=== PATIENT | female | born 1955 | race African-American/Black ===

== ENCOUNTER 2016-05-01 14:21 | Inpatient (IN) | payer MEDICARE ==
[~2016-05-01] VITALS: Ht 165.1 cm; Wt 124.0 kg
[~2016-05-01 14:21] MED LIST: AMOX500T PO; ASPI325T PO; BACL10TA PO; CLON.2 PO; COZA100T PO; CRANCAP11 PO; D 10CAP PO; DILA4TAB2 PO; FURO40TA PO; GABA300C5 PO; GABA600T PO; NIFE1TAB86 PO; NIFE20 PO; PANT20 PO; PLAQ200T PO; POTA-163 PO; TERI14TA PO; VITA100T PO; VITATAB11 PO
[2016-05-01 14:25] VITALS: BP 185/102; PULSE 56; RESP 16; TEMP 97.8; O2SAT 99
--- NOTE | 2016-05-01 14:30 | PD ---
HPI Chief Complaint: Complaint Time Seen by Provider: 14:27 Travel History International Travel<30 days: No Contact w/Intl Traveler<30days: No Traveled to known affect area: No History of Present Illness HPI 60-year-old female came to the emergency room sent from her neurologist office for possible UTI/sepsis. Patient has multiple sclerosis and sees Dr. Suggs. She has an indwelling suprapubic catheter as well as Vas-Cath for immunoglobulin. For past 2 days she has been running 101.5 fever with chills and sweats. She was at his office when he decided to call EMS and transfer her to the ER. Patient has been afebrile in the ER. Vital signs are stable. Patient is not ambulatory, wheelchair-bound. PFS Past Medical History Narrative Medical List for past medical history is reviewed from the nursing note. Arthritis: Yes (RA) Asthma: No Autoimmune Disease: Yes (LUPUS, MS, RA AND SPINAL STENOSIS) Blood Disorders: No Bipolar Disorder: Yes Anxiety: No Depression: Yes Heart Rhythm Problems: Yes Cancer: No Cardiac Catheterization: No Cardiovascular Problems: Yes (HTN) High Cholesterol: No Chemotherapy: No Chest Pain: Yes Congestive Heart Failure: No COPD: No Cerebrovascular Accident: No Diabetes: No Diminished Hearing: No Endocrine: No Fibromyalgia: Yes Gastrointestinal Disorders: Yes (BOWEL EMPTYING PROBLEMS) GERD: Yes Genitourinary: Yes (SUPRAPUBIC CATHER BC OF DIFFICULTY WITH EMPTYING BLADDER) Headaches: Yes Hepatitis: No Hiatal Hernia: No Hypertension: Yes Immune Disorder: Yes (LUPUS, MS, RA AND SPINAL STENOSIS) Implanted Vascular Access Dvce: Yes Kidney Stones: No Musculoskeletal: Yes (MS) Neurologic: Yes (MS) Psychiatric: Yes Reproductive: No Respiratory: No Immunizations Current: Yes Migraines: No Radiation Therapy: No Renal Failure: No Seizures: No Sickle Cell Disease: No Sleep Apnea: No Thyroid Disease: No Ulcer: No PNEUMOCCOCAL Vaccine (Year): 2 Menopausal: Yes : 3 Para: 2 Miscarriage: 1 Ovarian Cysts: Yes Tubal Ligation: Yes Past Surgical History Abdominal Surgery: Yes AICD: No Appendectomy: No Arteriovenous Shunt: No Body Medical Devices: METAL PLATES RIGHT ANKLE, METAL IN NECK Cardiac Surgery: No Cholecystectomy: Yes Coronary Artery Bypass Graft: No Ear Surgery: No Endocrine Surgery: No Eye Surgery: No Genitourinary Surgery: Yes (suprapubic catheter) Gynecologic Surgery: Yes (LEFT OVARY hysterectomy) Hysterectomy: Yes (partial) Insulin Pump: No Joint Replacement: No Neurologic Surgery: Yes ( C 2-3 AND 5-6 FUSION 2004) Oral Surgery: No Pacemaker: No Thoracic Surgery: No Other Surgery: Yes Social History Alcohol Use: No Tobacco Use: No Substance Use: No Allergies-Medications (Allergen,Severity, Reaction): Coded Allergies: Adhesives (Verified Allergy, Severe, Rash, 05/01/16) Codeine (Verified Allergy, Severe, SWELLING AND DIFFICULTY BREATHING, ) Dynacirc (Verified Allergy, Severe, ELEVATED HEART RATE, 05/01/16) Lortab (Verified Allergy, Severe, RASH AND SWELLING, 05/01/16) Percocet (Verified Allergy, Severe, ITCHING, 05/01/16) Solu-Medrol (Verified Allergy, Severe, Shortness of Breath, 05/01/16) *MDRO Multi-Drug Resistant Organism (Verified Adverse Reaction, Unknown, 05/01/16) 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 Reported Meds & Prescriptions Reported Meds & Active Scripts Active Reported Toviaz ER (Fesoterodine Fumarate) Unknown Strength Lou Unknown Dose PO DAILY Aubagio (Teriflunomide) 14 Mg Tab 14 Mg PO DAILY Furosemide 40 Mg Tab 40 Mg PO DAILY Nifedipine 20 Mg Cap 30 Mg PO HS Protonix (Pantoprazole Sodium) 20 Mg Tab 20 Mg PO DAILY Procardia XL (Nifedipine) 60 Mg Tab 60 Mg PO DAILY Plaquenil (Hydroxychloroquine Sulfate) 200 Mg Tab 200 Mg PO BID Take with food Potassium Chloride ER (Potassium Chloride) 20 Meq Tab 20 Meq PO DAILY Gabapentin 600 Mg Tab 600 Mg PO HS Gabapentin 300 Mg Cap 300 Mg PO BID Dilaudid (Hydromorphone HCl) 4 Mg Tab 4 Mg PO Q8H PRN Cozaar (Losartan Potassium) 100 Mg Tab 100 Mg PO HS Catapres (Clonidine) 0.2 Mg Tab 0.2 Mg PO TID Aspirin 325 Mg Tab 325 Mg PO DAILY Vitamin B-12 (Cyanocobalamin) 100 Mcg Tab 100 Mcg PO DAILY D 61280 (Cholecalciferol) 10,000 Unit Cap 1 Cap PO DAILY Baclofen 10 Mg Tab 10 Mg PO BID Vitamin B Complex (B-Complex Vitamins) 1 Tab 1 Tab PO DAILY Narrative Medication List of her home medications reviewed from the nursing note. Review of Systems Except as stated in HPI: all other systems reviewed are Neg Physical Exam Narrative GENERAL: Awake, alert, obese, no obvious distress SKIN: Warm and dry. Left sided chest Vas-Cath and suprapubic catheter HEAD: Atraumatic. Normocephalic. EYES: Pupils equal and round. No scleral icterus. No injection or drainage. ENT: No nasal bleeding or discharge. Mucous membranes pink and moist. NECK: Trachea midline. No JVD. CARDIOVASCULAR: Regular rate and rhythm. No murmur appreciated. RESPIRATORY: No accessory muscle use. Clear to auscultation. Breath sounds equal bilaterally. GASTROINTESTINAL: Abdomen soft, non-tender, nondistended. Hepatic and splenic margins not palpable. MUSCULOSKELETAL: No obvious deformities. No clubbing. No cyanosis. No edema. NEUROLOGICAL: Awake and alert. No obvious cranial nerve deficits. Motor grossly within normal limits. Normal speech. PSYCHIATRIC: Appropriate mood and affect; insight and judgment normal. Data Data Last Documented VS Vital Signs Date Time Temp Pulse Resp B/P Pulse Ox O2 Delivery O2 Flow Rate FiO2 05/01/16 15:04 96 Room Air 05/01/16 15:04 16 05/01/16 14:25 97.8 56 185/102 Orders Complete Blood Count With Diff (05/01/16 14:37) Comprehensive Metabolic Panel (05/01/16 14:37) Lactic Acid Sepsis Protocol (05/01/16 14:37) Urinalysis - C+S If Indicated (05/01/16 14:37) Blood Culture (05/01/16 14:37) Chest, Single Ap (05/01/16 14:37) Blood Glucose (05/01/16 14:37) Ecg Monitoring (05/01/16 14:37) Iv Access Insert/Monitor (05/01/16 14:37) Oximetry (05/01/16 14:37) Oxygen Administration (05/01/16 14:37) Consult Vascular Access Team (05/01/16 ) Vascular Poc Ultrasound (05/01/16 ) Urine Culture (05/01/16 16:40) Piperacil-Tazo 4.5 Gm Premix (Zosyn 4.5 (05/01/16 17:45) Admit Order (Ed Use Only) (05/01/16 18:00) Labs Laboratory Tests Test 05/01/16 05/01/16 16:15 16:40 Sodium Level 142 MEQ/L Potassium Level 3.8 MEQ/L Chloride Level 104 MEQ/L Carbon Dioxide Level 30.3 MEQ/L Anion Gap 8 MEQ/L Blood Urea Nitrogen 15 MG/DL Creatinine 1.04 MG/DL Estimat Glomerular Filtration 66 ML/MIN Rate Random Glucose 97 MG/DL Lactic Acid Level 1.6 mmol/L Calcium Level 9.2 MG/DL Total Bilirubin 0.4 MG/DL Aspartate Amino Transf 13 U/L (AST/SGOT) Alanine Aminotransferase 16 U/L (ALT/SGPT) Alkaline Phosphatase 82 U/L Total Protein 7.9 GM/DL Albumin 3.6 GM/DL White Blood Count 6.0 TH/MM3 Red Blood Count 4.38 MIL/MM3 Hemoglobin 12.2 GM/DL Hematocrit 36.6 % Mean Corpuscular Volume 83.5 FL Mean Corpuscular Hemoglobin 27.8 PG Mean Corpuscular Hemoglobin 33.3 % Concent Red Cell Distribution Width 14.3 % Platelet Count 290 TH/MM3 Mean Platelet Volume 8.8 FL Neutrophils (%) (Auto) 52.2 % Lymphocytes (%) (Auto) 28.3 % Monocytes (%) (Auto) 10.5 % Eosinophils (%) (Auto) 7.8 % Basophils (%) (Auto) 1.2 % Neutrophils # (Auto) 3.1 TH/MM3 Lymphocytes # (Auto) 1.7 TH/MM3 Monocytes # (Auto) 0.6 TH/MM3 Eosinophils # (Auto) 0.5 TH/MM3 Basophils # (Auto) 0.1 TH/MM3 CBC Comment DIFF FINAL Differential Comment Urine Color LIGHT-YELLOW Urine Turbidity CLEAR Urine pH 6.0 Urine Specific [place] 1.005 Urine Protein NEG mg/dL Urine Glucose (UA) NEG mg/dL Urine Ketones NEG mg/dL Urine Occult Blood NEG Urine Nitrite NEG Urine Bilirubin NEG Urine Urobilinogen LESS THAN 2.0 MG/DL Urine Leukocyte Esterase LARGE Urine RBC 1 /hpf Urine WBC 40 /hpf Urine Bacteria RARE /hpf Microscopic Urinalysis Comment CATH-CULTURE IND MDM Medical Decision Making Medical Screen Exam Complete: Yes Emergency Medical Condition: Yes Medical Record Reviewed: Yes Differential Diagnosis UTI, pneumonia, sepsis, electrolyte abnormalities Narrative Course 2:52 PM awaiting for the blood test results to come back. 6:03 PM test results finally came back. Patient does have a UTI. Rest of the blood test results are within normal limits. Looking back at her past urine culture from December patient grew pseudomonas aeruginosa that was resistant to most of the oral antibiotics. I've given her IV Zosyn which the bacteria was sensitive to. Patient will be admitted for the UTI. Procedures EKG Prior to Arrival: No Diagnosis Primary Impression: UTI (urinary tract infection) Qualified Code: N39.0 - Urinary tract infection without hematuria, site unspecified Additional Impressions: Fever Qualified Code: R50.9 - Fever, unspecified fever cause Multiple sclerosis Chronic indwelling Mendoza catheter Grant Wharton MD May 01, 2016 14:30 Grant Wharton MD May 01, 2016 14:30
[2016-05-01 15:04] VITALS: RESP 16; O2SAT 96
--- NOTE | 2016-05-01 15:46 | RADRPT ---
EXAM DATE/TIME: 05/01/2016 15:08 [facility] COMPARISON: CHEST SINGLE AP, January 01, 2016, 18:55. INDICATIONS : Cough MEDICAL HISTORY : Cerebrovascular disease. Multiple sclerosis. Hypertension SURGICAL HISTORY : Permacath ENCOUNTER: Initial ACUITY: 1 day PAIN SCORE: 0/10 LOCATION: Bilateral chest FINDINGS: A single view of the chest demonstrates the lungs to be symmetrically aerated without evidence of mas s, infiltrate or effusion. The cardiomediastinal contours are unremarkable. Osseous structures are intact. Left-sided large bore permacath dialysis catheter remains in place. CONCLUSION: No acute disease. No significant change has occurred. Ruslan Sánchez MD on May 01, 2016 at 15:44 Board Certified Radiologist. This report was verified electronically.
[2016-05-01 17:10] LABS: AUTOMATED NEUTROPHIL # 3.1 TH/MM3 (1.8-7.7); BASOPHIL # 0.1 TH/MM3 (0-0.2); BASOPHIL % 1.2 % (0.0-2.0); EOSINOPHIL # 0.5 TH/MM3 (0-0.4); EOSINOPHIL % 7.8 % (0.0-4.0); HEMATOCRIT 36.6 % (35.0-46.0); HEMO FLAGS DIFF FINAL; LYMPH % 28.3 % (9.0-44.0); LYMPHOCYTE # 1.7 TH/MM3 (1.0-4.8); MEAN CELL VOLUME 83.5 FL (80.0-100.0); MEAN CORPUSCULAR HEMOGLOBIN 27.8 PG (27.0-34.0); MEAN CORPUSCULAR HGB CONC 33.3 % (32.0-36.0); MONO % 10.5 % (0.0-8.0); NEUT % 52.2 % (16.0-70.0); PLATELET COUNT 290 TH/MM3 (150-450); RED BLOOD COUNT 4.38 MIL/MM3 (4.00-5.30); RED CELL DISTRIBUTION WIDTH 14.3 % (11.6-17.2)
[2016-05-01 17:10] LABS: BACTERIA, URINE RARE /hpf; BLOOD, URINE NEG (NEG); GLUCOSE,URINE NEG (NEG); KETONE, URINE NEG (NEG); NITRITE,URINE NEG (NEG); URINE COLOR LIGHT-YELLOW (YELLW/STRAW)
[2016-05-01 17:11] LABS: COMMENT (UR) CATH-CULTURE IND; CULTURE IF INDICATED CATH CULTURE IND
[2016-05-01 17:25] LABS: ALKALINE PHOSPHATASE 82 U/L (45-117); ALT (GPT) 16 U/L (10-53); ANION GAP 8 MEQ/L (5-15); AST (GOT) 13 U/L (15-37); BICARBONATE 30.3 MEQ/L (21.0-32.0); BLOOD UREA NITROGEN 15 MG/DL (7-18); CHLORIDE 104 MEQ/L (98-107); GLOMERULAR FILTRATION RATE 66 ML/MIN (>89); POTASSIUM 3.8 MEQ/L (3.5-5.1); SODIUM (NA) 142 MEQ/L (136-145); TOTAL BILIRUBIN ADULT 0.4 MG/DL (0.2-1.0)
[2016-05-01] MEDS ORDERED: PIPERACIL-TAZO 4.5 GM PREMIX 100 ML IV ONE (17:45)
[2016-05-01] MEDS ORDERED: TERI14TA PO (18:33)
[2016-05-01] MEDS ORDERED: TOVI4TAB PO (18:33)
--- NOTE | 2016-05-01 19:55 | HHI.HP ---
HPI Service [facility] Hospitalists Primary Care Physician John Bloom Jr, MD Admission Diagnosis UTI, indwelling Mendoza, MS Chief Complaint: Fever, left flank pain, foul smelling urine Travel History International Travel<30 Days: No Contact w/Intl Traveler <30 Da: No Traveled to Known Affected Are: No Sepsis Criteria Sepsis Criteria (SIRS+source): Infect source susp/known History of Present Illness Pleasant 60-year-old Afro-Swiss female with underlying multiple sclerosis since 2012 and indwelling suprapubic catheter for approximately a year and a half presents via E Vac sent from her neurologist's office secondary to reported fever over the last 2 days. Patient reports MAXIMUM TEMPERATURE was yesterday afternoon at 101.4. Had no nausea or vomiting. She's had a cough with slight phlegm production which started today. Denies hemoptysis or hematemesis. She's had recurrent urinary tract infections in the past with some multidrug-resistant organisms. She was actually hospitalized a few months ago with pseudomonal UTI with multidrug resistance. On evaluation in the ER she does not appear toxic and is afebrile. CBC is essentially unremarkable. It is noted the patient is on immune O suppressant medication for her MS and also gets plasmapheresis periodically with last plasmapheresis being done March 15 of this year. She does report some purulent discharge and foul smell in her urine the last couple of days. Urine collected in the ER has findings which could be consistent with infectious process. Review of Systems Constitutional: COMPLAINS OF: Diaphoretic episodes, Fatigue, Fever, Chills, Night Sweats Eyes: DENIES: Blurred vision, Diplopia, Eye inflammation, Eye pain, Vision loss , Photosensitivity, Double Vision Ears, nose, mouth, throat: DENIES: Tinnitus, Hearing loss, Vertigo, Nasal discharge, Oral lesions, Throat pain, Hoarseness, Ear Pain, Running Nose, Epistaxis, Sinus Pain, Toothache, Odynophagia Respiratory: COMPLAINS OF: Cough, Sputum production, DENIES: Apneas, Snoring, Wheezing, Hemoptysis, Shortness of breath Cardiovascular: DENIES: Chest pain, Palpitations, Syncope, Dyspnea on Exertion , PND, Lower Extremity Edema, Orthopnea, Claudication Gastrointestinal: DENIES: Abdominal pain, Black stools, Bloody stools, BRB per rectum, Constipation, Diarrhea, GERD, Nausea, Reflux, Vomiting, Difficulty Swallowing, Anorexia, See HPI Musculoskeletal: COMPLAINS OF: Joint pain Neurologic: COMPLAINS OF: Localized weakness Psychiatric: COMPLAINS OF: Anxiety Other Wheelchair bound due to inability to ambulate secondary to EMS, left flank pain. Past Family Social History Past Medical History Multiple sclerosis diagnosed in late 2012 requiring plasmapheresis periodically. Most recent plasmapheresis was March 2016. Fibromyalgia Bipolar disorder History of obesity Hypertension Lupus Fibromyalgia Gastroparesis Recurrent UTIs Past Surgical History 2004 the patient had C3 through C6 anterior cervical discectomy and arthrodesis for severe cervical stenosis and myelopathy 2008 the patient had again the same diagnosis but had C6-C7 anterior cervical discectomy and arthrodesis 2010 the patient had open reduction, internal fixation of a right ankle fracture Right distal fibula fracture Torn lateral meniscus last year and underwent arthroscopic surgery Laparoscopic cholecystectomy Hysterectomy Suprapubic catheter placement approximately 1-1/2 years ago Reported Medications Furosemide 40 Mg Tab 40 Mg PO DAILY Nifedipine 20 Mg Cap 30 Mg PO HS Protonix (Pantoprazole Sodium) 20 Mg Tab 20 Mg PO DAILY Procardia XL (Nifedipine) 60 Mg Tab 60 Mg PO DAILY Plaquenil (Hydroxychloroquine Sulfate) 200 Mg Tab 200 Mg PO BID Take with food Potassium Chloride ER (Potassium Chloride) 20 Meq Tab 20 Meq PO DAILY Gabapentin 600 Mg Tab 600 Mg PO HS Gabapentin 300 Mg Cap 300 Mg PO BID Dilaudid (Hydromorphone HCl) 4 Mg Tab 4 Mg PO Q8H PRN Cozaar (Losartan Potassium) 100 Mg Tab 100 Mg PO HS Catapres (Clonidine) 0.2 Mg Tab 0.2 Mg PO TID Aspirin 325 Mg Tab 325 Mg PO DAILY Vitamin B-12 (Cyanocobalamin) 100 Mcg Tab 100 Mcg PO DAILY D 02964 (Cholecalciferol) 10,000 Unit Cap 1 Cap PO DAILY Baclofen 10 Mg Tab 10 Mg PO BID Vitamin B Complex (B-Complex Vitamins) 1 Tab 1 Tab PO DAILY Cranberr1 Unknown Strength Cap Unknown Dose PO [id number] Mg 14 Mg Tab 14 Mg PO DAILY Allergies: Coded Allergies: Adhesives (Verified Allergy, Severe, Rash, 05/01/16) Codeine (Verified Allergy, Severe, SWELLING AND DIFFICULTY BREATHING, ) Dynacirc (Verified Allergy, Severe, ELEVATED HEART RATE, 05/01/16) Lortab (Verified Allergy, Severe, RASH AND SWELLING, 05/01/16) Percocet (Verified Allergy, Severe, ITCHING, 05/01/16) Solu-Medrol (Verified Allergy, Severe, Shortness of Breath, 05/01/16) *MDRO Multi-Drug Resistant Organism (Verified Adverse Reaction, Unknown, 05/01/16) 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 They have been together for over 30 years. She has 2 adult children one son who lives in [place] and a daughter who lives in [place] Never smoked tobacco. Does not drink alcohol. Denies illicit drugs. 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 Physical Exam Vital Signs Vital Signs Date Time Temp Pulse Resp B/P Pulse Ox O2 Delivery O2 Flow Rate FiO2 05/01/16 15:04 96 Room Air 05/01/16 15:04 16 96 Room Air 05/01/16 14:25 97.8 56 16 185/102 99 Physical Exam GENERAL: This is a well-nourished, well-developed patient, in no apparent distress. Alert and oriented. Well informed about her current illness and diagnoses. SKIN: Slight purpuric rash on forearms. Cool and dry. Left upper chest with port in place. HEAD: Atraumatic. Normocephalic. No temporal or scalp tenderness. EYES: Pupils equal round and reactive. Extraocular motions intact. No scleral icterus. No injection or drainage. ENT: Nose without bleeding, purulent drainage or septal hematoma. Airway patent. NECK: Trachea midline. No JVD or lymphadenopathy. Supple, nontender, no meningeal signs. CARDIOVASCULAR: Regular rate and rhythm without murmurs, gallops, or rubs. RESPIRATORY: Clear to auscultation. Breath sounds equal bilaterally. No wheezes , rales, or rhonchi. GASTROINTESTINAL: Abdomen soft, non-tender, nondistended. No hepato-splenomegaly , or palpable masses. No guarding. Bowel sounds normal. Suprapubic catheter in place. MUSCULOSKELETAL: Extremities without clubbing, cyanosis, or edema. No calf tenderness. NEUROLOGICAL: Awake and alert. Cranial nerves II through XII intact. Decreased strength in lower extremities causing her to be wheelchair/bed bound. Normal speech. Laboratory Laboratory Tests Test 05/01/16 05/01/16 16:15 16:40 White Blood Count 6.0 Red Blood Count 4.38 Hemoglobin 12.2 Hematocrit 36.6 Mean Corpuscular Volume 83.5 Mean Corpuscular Hemoglobin 27.8 Mean Corpuscular Hemoglobin 33.3 Concent Red Cell Distribution Width 14.3 Platelet Count 290 Mean Platelet Volume 8.8 Neutrophils (%) (Auto) 52.2 Lymphocytes (%) (Auto) 28.3 Monocytes (%) (Auto) 10.5 Eosinophils (%) (Auto) 7.8 Basophils (%) (Auto) 1.2 Neutrophils # (Auto) 3.1 Lymphocytes # (Auto) 1.7 Monocytes # (Auto) 0.6 Eosinophils # (Auto) 0.5 Basophils # (Auto) 0.1 CBC Comment DIFF FINAL Differential Comment Sodium Level 142 Potassium Level 3.8 Chloride Level 104 Carbon Dioxide Level 30.3 Anion Gap 8 Blood Urea Nitrogen 15 Creatinine 1.04 Estimat Glomerular Filtration 66 Rate Random Glucose 97 Lactic Acid Level 1.6 Calcium Level 9.2 Total Bilirubin 0.4 Aspartate Amino Transf 13 (AST/SGOT) Alanine Aminotransferase 16 (ALT/SGPT) Alkaline Phosphatase 82 Total Protein 7.9 Albumin 3.6 Urine Color LIGHT-YELLOW Urine Turbidity CLEAR Urine pH 6.0 Urine Specific [place] 1.005 Urine Protein NEG Urine Glucose (UA) NEG Urine Ketones NEG Urine Occult Blood NEG Urine Nitrite NEG Urine Bilirubin NEG Urine Urobilinogen LESS THAN 2.0 Urine Leukocyte Esterase LARGE Urine RBC 1 Urine WBC 40 Urine Bacteria RARE Microscopic Urinalysis Comment CATH-CULTURE IND Date/Time Procedure Status Source Growth 05/01/16 16:40 Urine Culture Received Urine Catheterized Urine Pending 05/01/16 16:20 Aerobic Blood Culture Received Blood Peripheral Pending 05/01/16 16:20 Anaerobic Blood Culture Received Blood Peripheral Pending Result Diagram: 05/01/16 1615 05/01/16 1615 Imaging Last 72 hours Impressions Chest X-Ray 05/01/16 1437 Signed Impressions: Service Date/Time: Sunday, May 01, 2016 15:08 - CONCLUSION: No acute disease. No significant change has occurred. Ruslan Sánchez MD Assessment and Plan Problem List: (1) UTI (urinary tract infection) Status: Acute Plan: Seems to be a recurrent issue. Patient is had multidrug resistant organism before. She is somewhat immobile, has indwelling device, is on immunosuppressant therapy. He does not appear toxic. We'll continue current antibiotics and await these gram staining. If gram staining is similar to previous admit and patient is responding well to antibiotics with no more fever, could consider early discharge to rehabilitation for IV antibiotic therapy. (2) Multiple sclerosis Status: Chronic Plan: Continue outpatient therapy. (3) HTN (hypertension), benign Status: Chronic Plan: Continue medications and adjust as needed. Her blood pressure has been difficult to control at times in the past. (4) Lupus (systemic lupus erythematosus) Status: Chronic Plan: Continue outpatient therapy. (5) GERD (gastroesophageal reflux disease) Status: Chronic Plan: Continue outpatient therapy. Code Status Full Discussed Condition With Patient Problem Qualifiers (1) UTI (urinary tract infection): Cr Perdue PhD May 01, 2016 19:55
[2016-05-01] MEDS ORDERED: HYDROmorphone HCL 4 MG TAB PO PRN (20:00)
[2016-05-01 20:43] VITALS: BP 163/78
[2016-05-01] MEDS: GABAPENTIN 300 MG CAP PO SCH ×2 (21:00→22:30)
[2016-05-01] MEDS: BACLOFEN 10 MG TAB PO SCH (21:00)
[2016-05-01] MEDS: LOSARTAN 50 MG TAB PO SCH (22:29)
[2016-05-01] MEDS: HYDROXYCHLOROQUINE SULFATE 200 MG TAB PO SCH (22:30)
[2016-05-02] MEDS: NIFEdipine 10 MG CAP PO SCH ×2 (00:02→22:34)
[2016-05-02] MEDS: PIPERACIL-TAZO 3.375 GM PREMIX 50 ML IV SCH ×4 (00:03→18:04)
[2016-05-02 02:19] VITALS: BP 140/77; PULSE 84; RESP 18; TEMP 97.8; O2SAT 96
[2016-05-02 05:28] VITALS: BP 136/69; PULSE 92; RESP 18; TEMP 98; O2SAT 98
[2016-05-02 08:44] VITALS: BP 138/70; PULSE 84; RESP 18; TEMP 97.6; O2SAT 95
[2016-05-02] MEDS: NIFEdipine 60 MG SUSTAINED RELEASE TAB PO SCH (09:00)
[2016-05-02] MEDS: TERIFLUNOMIDE 14 MG PO SCH (09:00)
[2016-05-02] MEDS: POTASSIUM CHLORIDE 20 MEQ CONTROLLED RELEASE TAB PO SCH (09:28)
[2016-05-02] MEDS: FUROSEMIDE 40 MG TAB PO SCH (09:28)
[2016-05-02] MEDS: BACLOFEN 10 MG TAB PO SCH ×2 (09:28→22:33)
[2016-05-02] MEDS: GABAPENTIN 300 MG CAP PO SCH ×3 (09:28→22:33)
[2016-05-02] MEDS: ASPIRIN 325 MG TAB PO SCH (09:28)
[2016-05-02] MEDS: PANTOPRAZOLE SOD 20 MG DELAYED RELEASE TAB PO SCH (09:29)
[2016-05-02] MEDS: HYDROXYCHLOROQUINE SULFATE 200 MG TAB PO SCH ×2 (09:29→22:34)
[2016-05-02] MEDS: cloNIDine HCL 0.2 MG TAB PO SCH ×3 (09:29→18:04)
[2016-05-02 10:48] LABS: ALKALINE PHOSPHATASE 72 U/L (45-117); ALT (GPT) 18 U/L (10-53); ANION GAP 7 MEQ/L (5-15); AST (GOT) 21 U/L (15-37); BICARBONATE 29.1 MEQ/L (21.0-32.0); BLOOD UREA NITROGEN 18 MG/DL (7-18); CHLORIDE 105 MEQ/L (98-107); GLOMERULAR FILTRATION RATE 60 ML/MIN (>89); SODIUM (NA) 141 MEQ/L (136-145); TOTAL BILIRUBIN ADULT 0.6 MG/DL (0.2-1.0)
[2016-05-02 10:50] LABS: POTASSIUM 4.4 MEQ/L (3.5-5.1)
[2016-05-02 12:02] VITALS: BP 126/68; PULSE 76; RESP 20; TEMP 98.6; O2SAT 97
--- NOTE | 2016-05-02 15:21 | HHI.PR ---
Subjective Remarks feeling stronger after the antibiotics Objective Vitals nad heart reg lung cta abd s/nt. suprapubic cath..no purelence at insertion site. urine yellow in bag ext no edema Vital Signs Date Time Temp Pulse Resp B/P Pulse Ox O2 Delivery O2 Flow Rate FiO2 05/02/16 12:02 98.6 76 20 126/68 97 05/02/16 08:44 97.6 84 18 138/70 95 05/02/16 05:28 98.0 92 18 136/69 98 05/02/16 05:22 05/02/16 02:19 97.8 84 18 140/77 96 05/01/16 20:43 74 18 163/78 97 05/01/16 05/01/16 05/02/16 14:59 22:59 06:59 Output Total 500 ml Balance -500 ml Output Urine Total 500 ml Result Diagram: 05/01/16 1615 05/02/16 1016 Imaging Last 72 hours Impressions Chest X-Ray 05/01/16 1437 Signed Impressions: Service Date/Time: Sunday, May 01, 2016 15:08 - CONCLUSION: No acute disease. No significant change has occurred. Ruslan Sánchez MD A/P Problem List: (1) UTI (urinary tract infection) Status: Acute Plan: Pt has severe M.S. and has had suprapubic catheter..typically exchanged monthly by her urologist. she has long hx of complicated uti's and mdr infections. Pt says she had fever x 3 days with temp up to 101.4 and was feeling weak as she typically gets when infection flares her MS. Also she noted cloudy urine and foul odor. so far urine growing pseudomonas again will ask IR to exchange her spc. admit for monitoring PT eval. so far pt says the abx have improved her aching/weakness. dvt prophylaxis (2) Multiple sclerosis Status: Chronic Plan: Continue outpatient therapy. (3) HTN (hypertension), benign Status: Chronic Plan: cont current rx (4) Lupus (systemic lupus erythematosus) Status: Chronic Plan: Continue outpatient therapy. (5) GERD (gastroesophageal reflux disease) Status: Chronic Plan: Continue outpatient therapy. Problem Qualifiers (1) UTI (urinary tract infection): Alex Morales MD May 02, 2016 15:21
[2016-05-02 16:33] VITALS: BP 110/55; PULSE 71; RESP 18; TEMP 97.7; O2SAT 99
[2016-05-02] MEDS: LOSARTAN 50 MG TAB PO SCH (22:33)
[2016-05-03] VITALS (8 sets, daily range): BP systolic 119–155; BP diastolic 67–82; PULSE 54–64; RESP 16–20; TEMP 96.3–97.7; O2SAT 95–100
[2016-05-03] MEDS: PIPERACIL-TAZO 3.375 GM PREMIX 50 ML IV SCH ×5 (01:27→23:05)
[2016-05-03] MEDS: ONDANSETRON HCL 4 MG/2 ML VIAL SLOW IVP PRN ×2 (07:17→16:48)
[2016-05-03] MEDS: NIFEdipine 60 MG SUSTAINED RELEASE TAB PO SCH (09:00)
[2016-05-03] MEDS: ASPIRIN 325 MG TAB PO SCH (09:31)
[2016-05-03] MEDS: PANTOPRAZOLE SOD 20 MG DELAYED RELEASE TAB PO SCH (09:46)
[2016-05-03] MEDS: GABAPENTIN 300 MG CAP PO SCH ×3 (09:47→22:28)
[2016-05-03] MEDS: HYDROXYCHLOROQUINE SULFATE 200 MG TAB PO SCH ×2 (09:47→22:49)
[2016-05-03] MEDS: POTASSIUM CHLORIDE 20 MEQ CONTROLLED RELEASE TAB PO SCH (09:47)
[2016-05-03] MEDS: BACLOFEN 10 MG TAB PO SCH ×2 (09:48→22:28)
[2016-05-03] MEDS: FUROSEMIDE 40 MG TAB PO SCH (09:48)
[2016-05-03] MEDS: cloNIDine HCL 0.2 MG TAB PO SCH ×3 (09:50→18:51)
[2016-05-03] MEDS ORDERED: fentaNYL CITRATE 250 MCG/5 ML AMP ONE (11:03)
[2016-05-03] MEDS ORDERED: MIDAZOLAM HCL 5 MG/5 ML VIAL ONE (11:03)
--- NOTE | 2016-05-03 11:43 | PD.RAD ---
Post Procedure Progress Note Pre Procedure Diagnosis: (1) Fever (2) Suprapubic catheter dysfunction Post Procedure Diagnosis: (1) Fever (2) Suprapubic catheter dysfunction Procedure Date: May 03, 2016 Supervising Radiologist: Ifeanyi Whalen Proceduralist/Assist: Leonie Grey, RT(R), RT Vladimir(R)() Anesthesia: Conscious Sedation Plan of Activity Patient to Unit: ROPU Patient Condition: Good See PACS Report for procedural detail/treatment Drainage Procedure Procedure 1 Imaging Guidance: Fluoroscopy Procedure Type: Suprapubic Tube Procedure: Exchange Ecuadorean: 16 Fluid Description: Yellow Findings: Tube exchanged over a wire Ifeanyi Whalen MD May 03, 2016 11:43
[2016-05-03] MEDS ORDERED: IOHEXOL 350 MG/ML 50 ML BTL (for RAD DIAG) ONE (11:47)
--- NOTE | 2016-05-03 12:55 | RADRPT ---
EXAM DATE/TIME: 05/03/2016 11:09 [facility] COMPARISON: No previous studies available for comparison. INDICATIONS : Patient with history of recurrent UTI in need of suprapubic catheter exchange. MEDICAL HISTORY : Multiple sclerosis, Plasmapheresis, Fibromyalgia, HTN, Lupus, Gastroparesis, GERD SURGICAL HISTORY : Discectomy, Cholecystectomy, Suprapubic catheter placement, Dialysis catheter placement ENCOUNTER: Subsequent ACUITY: 2 days PAIN SCORE: 0/10 FLUORO TIME: 0.9 minutes SEDATION TIME: 30 minutes CONTRAST: 10 cc Omnipaque 350 (iohexol) MEDICATION(S): 1.) 2 mg midazolam (Versed) IV 2.) 100 mcg fentanyl (Sublimaze) IV DEVICE(S): 1.) Mendoza catheter 16F PROCEDURE : 1. Suprapubic catheter change. 2. Conscious sedation with continuous EKG and oximetry monitoring. The risks, benefits and alternatives to the procedure were explained and verbal and written consent w as obtained. The site was prepped in sterile fashion. Full sterile technique was used, including cap, mask, steril e gloves and gown and a large sterile sheet. Hand hygiene and 2% chlorhexidine and/or betadine/alcoho l prep was utilized per protocol for cutaneous antisepsis. The skin and subcutaneous tissues were infiltrated with local anes thetic solution. A guidewire was placed through the existing catheter and over this the prescribed catheter was placed in the bladder. Positive contrast was injected to confirm position. Conscious sedation was performed with the prescribed dosages and duration as above. The patient edgard ated the procedure well and there were no complications. EKG and oximetry remained stable throughout the proce dure. The patient was sent to post anesthesia recovery in stable condition. CONCLUSION: Uncomplicated suprapubic catheter exchange. Ifeanyi Whalen MD on May 03, 2016 at 12:54 Board Certified Radiologist. This report was verified electronically.
[2016-05-03] MEDS: TERIFLUNOMIDE 14 MG PO SCH (14:06)
--- NOTE | 2016-05-03 15:28 | HHI.PR ---
Subjective Remarks sleeping after the procedure Objective Vitals lying in bed sleeping and sedated from medications heart reg lung cta abd spc with golden Vital Signs Date Time Temp Pulse Resp B/P Pulse Ox O2 Delivery O2 Flow Rate FiO2 05/03/16 13:00 56 16 134/69 98 05/03/16 12:30 56 16 126/79 98 05/03/16 12:00 54 16 119/76 97 05/03/16 11:46 05/03/16 11:45 97.6 54 16 150/82 96 05/03/16 08:17 97.7 57 18 155/75 100 05/03/16 04:37 97.6 64 20 135/67 98 05/02/16 16:33 97.7 71 18 110/55 99 05/02/16 05/02/16 05/03/16 15:00 23:00 07:00 Intake Total 480 ml Output Total 300 ml Balance 180 ml Intake Oral 480 ml Output Urine Total 300 ml # Bowel Movements 1 Result Diagram: 05/01/16 1615 05/02/16 1016 Imaging Last 72 hours Impressions Chest X-Ray 05/01/16 1437 Signed Impressions: Service Date/Time: Sunday, May 01, 2016 15:08 - CONCLUSION: No acute disease. No significant change has occurred. Ruslan Sánchez MD A/P Problem List: (1) UTI (urinary tract infection) Status: Acute Plan: Pt has severe M.S. and has had suprapubic catheter..typically exchanged monthly by her urologist. she has long hx of complicated uti's and mdr infections. Pt says she had fever x 3 days with temp up to 101.4 and was feeling weak as she typically gets when infection flares her MS. Also she noted cloudy urine and foul odor. so far urine growing pseudomonas again IR exchanged spc 05/03 will await final urine cx PT eval. so far pt says the abx have improved her aching/weakness. dvt prophylaxis (2) Multiple sclerosis Status: Chronic Plan: Continue outpatient therapy. (3) HTN (hypertension), benign Status: Chronic Plan: cont current rx (4) Lupus (systemic lupus erythematosus) Status: Chronic Plan: Continue outpatient therapy. (5) GERD (gastroesophageal reflux disease) Status: Chronic Plan: Continue outpatient therapy. Problem Qualifiers (1) UTI (urinary tract infection): Qualified Code: N39.0 - Urinary tract infection without hematuria, site unspecified Alex Morales MD May 03, 2016 15:28
[2016-05-03] MEDS: LOSARTAN 50 MG TAB PO SCH (22:29)
[2016-05-03] MEDS: NIFEdipine 10 MG CAP PO SCH (22:49)
[2016-05-04] VITALS (10 sets, daily range): BP systolic 101–148; BP diastolic 57–85; PULSE 54–73; RESP 14–18; TEMP 97–97.9; O2SAT 95–98
[2016-05-04] MEDS: ONDANSETRON HCL 4 MG/2 ML VIAL SLOW IVP PRN (04:50)
[2016-05-04] MEDS: PIPERACIL-TAZO 3.375 GM PREMIX 50 ML IV SCH ×3 (06:28→17:54)
[2016-05-04] MEDS: FUROSEMIDE 40 MG TAB PO SCH (09:29)
[2016-05-04] MEDS: ASPIRIN 325 MG TAB PO SCH (09:29)
[2016-05-04] MEDS: BACLOFEN 10 MG TAB PO SCH ×2 (09:29→21:52)
[2016-05-04] MEDS: TERIFLUNOMIDE 14 MG PO SCH (09:29)
[2016-05-04] MEDS: cloNIDine HCL 0.2 MG TAB PO SCH ×3 (09:29→18:02)
[2016-05-04] MEDS: NIFEdipine 60 MG SUSTAINED RELEASE TAB PO SCH (09:29)
[2016-05-04] MEDS: PANTOPRAZOLE SOD 20 MG DELAYED RELEASE TAB PO SCH (09:29)
[2016-05-04] MEDS: POTASSIUM CHLORIDE 20 MEQ CONTROLLED RELEASE TAB PO SCH (09:29)
[2016-05-04] MEDS: GABAPENTIN 300 MG CAP PO SCH ×2 (09:29→21:53)
[2016-05-04] MEDS ORDERED: GABAPENTIN 300 MG CAP PO ONE (09:45)
--- NOTE | 2016-05-04 09:50 | HHI.PR ---
Subjective Remarks c/o nausea and more fire/burning in feet bilaterally..plantar surface. crying. Objective Vitals heart reg lung cta abd s/nt ext no edema spc..urine yellow Vital Signs Date Time Temp Pulse Resp B/P Pulse Ox O2 Delivery O2 Flow Rate FiO2 05/04/16 08:38 97.1 66 18 148/85 95 05/04/16 04:00 97.1 61 16 143/70 96 05/04/16 00:00 97.0 58 14 119/60 98 05/03/16 20:00 97.2 62 16 124/72 95 05/03/16 17:02 96.3 55 18 145/72 97 05/03/16 13:00 56 16 134/69 98 05/03/16 12:30 56 16 126/79 98 05/03/16 12:00 54 16 119/76 97 05/03/16 11:46 05/03/16 11:45 97.6 54 16 150/82 96 05/03/16 05/03/16 05/04/16 15:00 23:00 07:00 Intake Total 360 ml 240 ml Output Total 1100 ml 251 ml Balance -740 ml -11 ml Intake Oral 360 ml 240 ml Output Urine Total 1100 ml 250 ml Stool Total 1 ml Result Diagram: 05/01/16 1615 05/02/16 1016 Imaging Last 72 hours Impressions Chest X-Ray 05/01/16 1437 Signed Impressions: Service Date/Time: Sunday, May 01, 2016 15:08 - CONCLUSION: No acute disease. No significant change has occurred. Ruslan Sánchez MD A/P Problem List: (1) UTI (urinary tract infection) Status: Acute Plan: Pt has severe M.S. and has had suprapubic catheter..typically exchanged monthly by her urologist. she has long hx of complicated uti's and mdr infections. Pt says she had fever x 3 days with temp up to 101.4 and was feeling weak as she typically gets when infection flares her MS. Also she noted cloudy urine and foul odor. so far urine growing pseudomonas again IR exchanged spc 05/03 will await final urine cx PT eval. dvt prophylaxis (2) Multiple sclerosis Status: Chronic Plan: Continue outpatient therapy. she is complaining for more peripheral neuropathy pain in feet..will increase her neurontin (3) HTN (hypertension), benign Status: Chronic Plan: cont current rx (4) Lupus (systemic lupus erythematosus) Status: Chronic Plan: Continue outpatient therapy. (5) GERD (gastroesophageal reflux disease) Status: Chronic Plan: Continue outpatient therapy. Problem Qualifiers (1) UTI (urinary tract infection): Qualified Code: N39.0 - Urinary tract infection without hematuria, site unspecified Alex Morales MD May 04, 2016 09:50
[2016-05-04] MEDS: HYDROXYCHLOROQUINE SULFATE 200 MG TAB PO SCH ×2 (09:53→21:52)
[2016-05-04] MEDS ORDERED: PROMETHAZINE HCL 25 MG TAB PO ONE (10:00)
[2016-05-04] MEDS: NIFEdipine 10 MG CAP PO SCH (21:00)
[2016-05-04] MEDS: LOSARTAN 50 MG TAB PO SCH (21:00)
[2016-05-05] VITALS (7 sets, daily range): BP systolic 105–152; BP diastolic 49–81; PULSE 58–79; RESP 16–20; TEMP 95.6–97.9; O2SAT 94–100
[2016-05-05] MEDS: PIPERACIL-TAZO 3.375 GM PREMIX 50 ML IV SCH ×2 (00:30→05:05)
[2016-05-05] MEDS: POTASSIUM CHLORIDE 20 MEQ CONTROLLED RELEASE TAB PO SCH (09:00)
--- NOTE | 2016-05-05 09:28 | HHI.PR ---
Subjective Remarks neuropathy pains better. pt upset because urine was taken from bag and not line. Objective Vitals heart reg lung cta abd s/nt. spc ext no edema Vital Signs Date Time Temp Pulse Resp B/P Pulse Ox O2 Delivery O2 Flow Rate FiO2 05/05/16 04:00 97.6 66 16 132/62 95 05/05/16 00:00 97.3 63 16 105/65 95 05/04/16 20:00 97.5 67 14 101/57 98 05/04/16 18:04 133/77 05/04/16 16:00 97.9 57 17 148/76 96 05/04/16 14:01 112/60 05/04/16 12:09 97.6 73 16 119/60 98 05/04/16 11:58 54 05/04/16 05/04/16 05/05/16 15:00 23:00 07:00 Intake Total 720 ml 360 ml Output Total 1100 ml 300 ml Balance 720 ml -740 ml -300 ml Intake Oral 720 ml 360 ml Output Urine Total 1100 ml 300 ml # Bowel Movements 0 Result Diagram: 05/01/16 1615 05/02/16 1016 Imaging Last 72 hours Impressions Chest X-Ray 05/01/16 1437 Signed Impressions: Service Date/Time: Sunday, May 01, 2016 15:08 - CONCLUSION: No acute disease. No significant change has occurred. Ruslan Sánchez MD A/P Problem List: (1) UTI (urinary tract infection) Status: Acute Plan: Pt has severe M.S. and has had suprapubic catheter..typically exchanged monthly by her urologist. she has long hx of complicated uti's and mdr infections. Pt says she had fever x 3 days with temp up to 101.4 and was feeling weak as she typically gets when infection flares her MS. Also she noted cloudy urine and foul odor. so far urine growing pseudomonas again. But the u/a was apparently collected incorrectly. ..discussed with charge nurse IR exchanged spc 05/03 will await final urine cx PT eval. dvt prophylaxis (2) Multiple sclerosis Status: Chronic Plan: Continue outpatient therapy. Had more severe peripheral neuropathy in feet 05/04..improved today with increase in gabapentin (3) HTN (hypertension), benign Status: Chronic Plan: cont current rx (4) Lupus (systemic lupus erythematosus) Status: Chronic Plan: Continue outpatient therapy. (5) GERD (gastroesophageal reflux disease) Status: Chronic Plan: Continue outpatient therapy. Problem Qualifiers (1) UTI (urinary tract infection): Qualified Code: N39.0 - Urinary tract infection without hematuria, site unspecified Alex Morales MD May 05, 2016 09:28
[2016-05-05] MEDS: ASPIRIN 325 MG TAB PO SCH (09:37)
[2016-05-05] MEDS: cloNIDine HCL 0.2 MG TAB PO SCH ×3 (09:37→18:31)
[2016-05-05] MEDS: BACLOFEN 10 MG TAB PO SCH ×2 (09:38→21:12)
[2016-05-05] MEDS: GABAPENTIN 300 MG CAP PO SCH ×3 (09:38→21:13)
[2016-05-05] MEDS: PANTOPRAZOLE SOD 20 MG DELAYED RELEASE TAB PO SCH (09:39)
[2016-05-05] MEDS: NIFEdipine 60 MG SUSTAINED RELEASE TAB PO SCH (09:39)
[2016-05-05] MEDS: FUROSEMIDE 40 MG TAB PO SCH (09:39)
[2016-05-05] MEDS: HYDROXYCHLOROQUINE SULFATE 200 MG TAB PO SCH ×2 (09:39→21:13)
[2016-05-05] MEDS: TERIFLUNOMIDE 14 MG PO SCH (09:42)
[2016-05-05 11:01] LABS: BACTERIA, URINE RARE /hpf; BLOOD, URINE NEG (NEG); COMMENT (UR) CULTURE INDICATED; CULTURE IF INDICATED CULTURE INDICATED; GLUCOSE,URINE NEG (NEG); KETONE, URINE NEG (NEG); MUCUS URINE FEW /lpf (OCC); NITRITE,URINE NEG (NEG); SQUAMOUS EPITHELIAL CELL URINE <1 /hpf (0-5)
[2016-05-05 11:03] LABS: URINE COLOR STRAW (YELLW/STRAW)
[2016-05-05] MEDS ORDERED: CIPROFLOXACIN 500 MG TAB PO ONE (11:30)
[2016-05-05] MEDS: LOSARTAN 50 MG TAB PO SCH ×2 (21:00→23:13)
[2016-05-05] MEDS: NIFEdipine 10 MG CAP PO SCH ×2 (21:00→23:13)
[2016-05-05] MEDS: CIPROFLOXACIN 500 MG TAB PO SCH (21:13)
[2016-05-06 06:43] VITALS: BP 132/68; PULSE 63; RESP 18; TEMP 96.5; O2SAT 99
[2016-05-06] MEDS: PROMETHAZINE HCL 25 MG TAB PO PRN (06:56)
[2016-05-06 08:00] VITALS: BP 183/79; PULSE 69; RESP 20; TEMP 96.5; O2SAT 98
[2016-05-06] MEDS: cloNIDine HCL 0.2 MG TAB PO SCH ×3 (08:24→18:00)
[2016-05-06] MEDS: GABAPENTIN 300 MG CAP PO SCH ×3 (08:24→20:56)
[2016-05-06] MEDS: FUROSEMIDE 40 MG TAB PO SCH (08:25)
[2016-05-06] MEDS: CIPROFLOXACIN 500 MG TAB PO SCH ×2 (08:25→20:56)
[2016-05-06] MEDS: BACLOFEN 10 MG TAB PO SCH ×2 (08:25→20:56)
[2016-05-06] MEDS: HYDROXYCHLOROQUINE SULFATE 200 MG TAB PO SCH ×2 (08:26→20:56)
[2016-05-06] MEDS: NIFEdipine 60 MG SUSTAINED RELEASE TAB PO SCH (08:26)
[2016-05-06] MEDS: TERIFLUNOMIDE 14 MG PO SCH (08:26)
[2016-05-06] MEDS: POTASSIUM CHLORIDE 20 MEQ CONTROLLED RELEASE TAB PO SCH (08:26)
[2016-05-06] MEDS: PANTOPRAZOLE SOD 20 MG DELAYED RELEASE TAB PO SCH (08:26)
[2016-05-06] MEDS: ASPIRIN 325 MG TAB PO SCH (08:26)
--- NOTE | 2016-05-06 11:48 | HHI.FF ---
Face to Face Verification Diagnosis: (1) Hypertension (2) Multiple sclerosis (3) GERD (gastroesophageal reflux disease) (4) UTI (urinary tract infection) (5) Generalized weakness Physical Therapy Order: Evaluate and Treat, Improve ambulation, Strength and gait training I have seen patient Angie Montez on 05/06/16. My clinical findings support the need for the requested home health care services because: Ltd mobility - disease progression Deconditioned w/ increased weakness Med compliance is questionable Limited ability to care for self Need for psychosocial assistance High risk of falls I certify that my clinical findings support that this patient is homebound because: Impaired cognitive ability/safety Unsteady gait/balance Unsafe to leave home unassisted Need for psychosocial assistance Unable to use public transportation Jan Stevens DO May 06, 2016 11:48
[2016-05-06 12:00] VITALS: BP 105/60; PULSE 69; RESP 20; TEMP 97.3; O2SAT 98
--- NOTE | 2016-05-06 12:10 | HHI.PR ---
Subjective Remarks Pt states that NOT feeling as well today. Increased fatigue & decreased appetite. Denies n/v. Denies fever or chills. Objective Vitals Vital Signs Date Time Temp Pulse Resp B/P Pulse Ox O2 Delivery O2 Flow Rate FiO2 05/06/16 08:00 96.5 69 20 183/79 98 05/06/16 06:43 96.5 63 18 132/68 99 05/05/16 23:11 97.3 59 20 140/68 96 05/05/16 20:00 97.9 58 20 123/66 97 05/05/16 20:00 62 05/05/16 14:00 97.1 75 18 124/80 100 05/05/16 05/05/16 05/06/16 15:00 23:00 07:00 Intake Total 875 ml Output Total 200 ml 400 ml Balance 675 ml -400 ml Intake Oral 875 ml Output Urine Total 200 ml 400 ml # Voids 3 # Bowel Movements 3 1 Result Diagram: 05/01/16 1615 05/02/16 1016 Imaging Last Impressions Tube Placement X-Ray 05/03/16 0000 Signed Impressions: Service Date/Time: Tuesday, May 03, 2016 11:09 - CONCLUSION: Uncomplicated suprapubic catheter exchange. Ifeanyi Whalen MD Chest X-Ray 05/01/16 1437 Signed Impressions: Service Date/Time: Sunday, May 01, 2016 15:08 - CONCLUSION: No acute disease. No significant change has occurred. Ruslan Sánchez MD Objective Remarks GENERAL: This is a well-nourished, well-developed patient, in no apparent distress. CARDIOVASCULAR: Regular rate and rhythm without murmurs, gallops, or rubs. RESPIRATORY: Clear to auscultation. Breath sounds equal bilaterally. No wheezes , rales, or rhonchi. GASTROINTESTINAL: Abdomen soft, non-tender, nondistended. Normal active bowel sounds MUSCULOSKELETAL: Extremities without clubbing, cyanosis, or edema. NEURO: Alert & Oriented x3, WATTS A/P Problem List: (1) UTI (urinary tract infection) Status: Acute Plan: Pt has severe M.S. and has had suprapubic catheter..typically exchanged monthly by her urologist. she has long hx of complicated uti's and mdr infections. Pt says she had fever x 3 days with temp up to 101.4 and was feeling weak as she typically gets when infection flares her MS. Also she noted cloudy urine and foul odor. so far urine growing pseudomonas again. But the u/a was apparently collected incorrectly. ..discussed with charge nurse IR exchanged spc 05/03 will await final urine cx PT eval. dvt prophylaxis - anticipate d/c to home in next 1-2 days (2) Multiple sclerosis Status: Chronic Plan: Continue outpatient therapy. Had more severe peripheral neuropathy in feet 05/04..improved - gabapentin increased - per pt her VasCath has NOT been functioning properly - Requested VasCath evaluation for patency by IR, but will probably NOT be possible until 05/07 d/t weekend (3) HTN (hypertension), benign Status: Chronic Plan: cont current rx (4) Lupus (systemic lupus erythematosus) Status: Chronic Plan: Continue outpatient therapy. (5) GERD (gastroesophageal reflux disease) Status: Chronic Plan: Continue outpatient therapy. Problem Qualifiers (1) UTI (urinary tract infection): Qualified Code: N39.0 - Urinary tract infection without hematuria, site unspecified (2) GERD (gastroesophageal reflux disease): Qualified Code: K21.9 - Gastroesophageal reflux disease, esophagitis presence not specified Jan Stevens DO May 06, 2016 12:10
[2016-05-06 16:00] VITALS: BP 120/63; PULSE 71; RESP 20; TEMP 97; O2SAT 98
[2016-05-06 20:07] VITALS: BP 131/76; PULSE 74; RESP 20; TEMP 98; O2SAT 97
[2016-05-06] MEDS: LOSARTAN 50 MG TAB PO SCH (20:56)
[2016-05-06] MEDS: NIFEdipine 10 MG CAP PO SCH (20:56)
[2016-05-07 00:09] VITALS: BP 150/79; PULSE 97; RESP 20; TEMP 98.5; O2SAT 98
[2016-05-07] MEDS: PROMETHAZINE HCL 25 MG TAB PO PRN ×2 (01:53→08:24)
[2016-05-07 04:12] VITALS: BP 129/72; PULSE 97; RESP 20; TEMP 97.4; O2SAT 95
[2016-05-07 06:58] LABS: BASOPHIL # 0.1 TH/MM3 (0-0.2); BASOPHIL % 1.2 % (0.0-2.0); EOSINOPHIL # 0.7 TH/MM3 (0-0.4); EOSINOPHIL % 9.6 % (0.0-4.0); HEMATOCRIT 34.1 % (35.0-46.0); HEMO FLAGS DIFF FINAL; LYMPH % 23.2 % (9.0-44.0); LYMPHOCYTE # 1.7 TH/MM3 (1.0-4.8); MEAN CELL VOLUME 83.6 FL (80.0-100.0); MEAN CORPUSCULAR HEMOGLOBIN 27.7 PG (27.0-34.0); MEAN CORPUSCULAR HGB CONC 33.2 % (32.0-36.0); MONO % 9.3 % (0.0-8.0); NEUT % 56.7 % (16.0-70.0); PLATELET COUNT 280 TH/MM3 (150-450); RED BLOOD COUNT 4.07 MIL/MM3 (4.00-5.30); RED CELL DISTRIBUTION WIDTH 14.7 % (11.6-17.2); WHITE BLOOD COUNT 7.1 TH/MM3 (4.0-11.0)
[2016-05-07 07:00] VITALS: BP 126/71; PULSE 87; RESP 20; TEMP 97.7; O2SAT 97
[2016-05-07 07:27] LABS: BICARBONATE 26.7 MEQ/L (21.0-32.0); POTASSIUM 3.4 MEQ/L (3.5-5.1)
[2016-05-07] MEDS: cloNIDine HCL 0.2 MG TAB PO SCH ×3 (08:23→13:00)
[2016-05-07] MEDS: HYDROXYCHLOROQUINE SULFATE 200 MG TAB PO SCH (08:23)
[2016-05-07] MEDS: NIFEdipine 60 MG SUSTAINED RELEASE TAB PO SCH (08:23)
[2016-05-07] MEDS: FUROSEMIDE 40 MG TAB PO SCH (08:23)
[2016-05-07] MEDS: CIPROFLOXACIN 500 MG TAB PO SCH (08:23)
[2016-05-07] MEDS: PANTOPRAZOLE SOD 20 MG DELAYED RELEASE TAB PO SCH (08:24)
[2016-05-07] MEDS: ASPIRIN 325 MG TAB PO SCH (08:24)
[2016-05-07] MEDS: POTASSIUM CHLORIDE 20 MEQ CONTROLLED RELEASE TAB PO SCH (08:24)
[2016-05-07] MEDS: GABAPENTIN 300 MG CAP PO SCH ×2 (08:24→13:01)
[2016-05-07] MEDS: BACLOFEN 10 MG TAB PO SCH (08:24)
[2016-05-07] MEDS: TERIFLUNOMIDE 14 MG PO SCH (08:25)
[2016-05-07 12:00] VITALS: BP 124/84; PULSE 68; RESP 20; TEMP 95.8; O2SAT 96
[2016-05-07] MEDS ORDERED: ALTEPLASE RECOMBINANT 2 MG VIAL ONE (12:16)
--- NOTE | 2016-05-07 12:26 | PD.RAD ---
Post Procedure Progress Note Pre Procedure Diagnosis: (1) Complications, dialysis, catheter, mechanical Post Procedure Diagnosis: (1) Complications, dialysis, catheter, mechanical Procedure Date: May 07, 2016 Supervising Radiologist: Zach Sterling Plan of Activity Patient to Unit: Nursing Unit Patient Condition: Poor Additional Comments: Left sided PermCath evaluated. catheter is in good position with fibrin sheath around the catheter tips. Each lumen of the catheter was locked with 2mg TPA. will reassess in 24 hours if catheter still does not function we will need to replace it See PACS Report for procedural detail/treatment Zach Sterling MD May 07, 2016 12:26
[2016-05-07] MEDS ORDERED: IOHEXOL 350 MG/ML 50 ML BTL (for RAD DIAG) IV ONE (12:29)
--- NOTE | 2016-05-07 12:59 | HHI.DCPOC ---
Discharge Care Plan Diagnosis: (1) UTI (urinary tract infection) (2) Multiple sclerosis (3) HTN (hypertension), benign (4) Lupus (systemic lupus erythematosus) Goals to Promote Your Health * To prevent worsening of your condition and complications * To maintain your health at the optimal level Directions to Meet Your Goals Take your medications as prescribed Follow your dietary instruction Follow activity as directed Keep your appointments as scheduled Take your immunizations and boosters as scheduled If your symptoms worsen call your PCP, if no PCP go to Urgent Care Center or Emergency Room Smoking is Dangerous to Your Health. Avoid second hand smoke Call the 24-hour hour crisis hotline for domestic abuse at Katherin Nava May 07, 2016 12:58 Jan Stevens DO May 11, 2016 22:37
[2016-05-07] MEDS ORDERED: NEUR300C PO ×2 (13:23)
[2016-05-07] MEDS ORDERED: CIPR-9 PO (13:23)
[2016-05-07] MEDS ORDERED: DILA4TAB2 PO (14:23)
--- NOTE | 2016-05-07 14:30 | HHI.PR ---
Subjective Remarks Pt still feeling overall weak today and wants to do rehab/SNF upon discharge Objective Vitals Vital Signs Date Time Temp Pulse Resp B/P Pulse Ox O2 Delivery O2 Flow Rate FiO2 05/07/16 12:00 95.8 68 20 124/84 96 05/07/16 07:00 97.7 87 20 126/71 97 05/07/16 04:12 97.4 97 20 129/72 95 05/07/16 00:09 98.5 97 20 150/79 98 05/06/16 20:07 98.0 74 20 131/76 97 05/06/16 16:00 97.0 71 20 120/63 98 05/06/16 05/06/16 05/07/16 15:00 23:00 07:00 Intake Total 480 ml 480 ml Output Total 3540 ml 350 ml 650 ml Balance -3060 ml 130 ml -650 ml Intake Oral 480 ml 480 ml Output Urine Total 3540 ml 350 ml 650 ml # Bowel Movements 1 1 1 Result Diagram: 05/07/16 0636 05/07/16 0636 Other Results Laboratory Tests Test 05/07/16 06:36 White Blood Count 7.1 TH/MM3 Red Blood Count 4.07 MIL/MM3 Hemoglobin 11.3 GM/DL Hematocrit 34.1 % Mean Corpuscular Volume 83.6 FL Mean Corpuscular Hemoglobin 27.7 PG Mean Corpuscular Hemoglobin 33.2 % Concent Red Cell Distribution Width 14.7 % Platelet Count 280 TH/MM3 Mean Platelet Volume 8.0 FL Neutrophils (%) (Auto) 56.7 % Lymphocytes (%) (Auto) 23.2 % Monocytes (%) (Auto) 9.3 % Eosinophils (%) (Auto) 9.6 % Basophils (%) (Auto) 1.2 % Neutrophils # (Auto) 4.0 TH/MM3 Lymphocytes # (Auto) 1.7 TH/MM3 Monocytes # (Auto) 0.7 TH/MM3 Eosinophils # (Auto) 0.7 TH/MM3 Basophils # (Auto) 0.1 TH/MM3 CBC Comment DIFF FINAL Differential Comment Sodium Level 144 MEQ/L Potassium Level 3.4 MEQ/L Chloride Level 108 MEQ/L Carbon Dioxide Level 26.7 MEQ/L Anion Gap 9 MEQ/L Blood Urea Nitrogen 18 MG/DL Creatinine 1.33 MG/DL Estimat Glomerular Filtration 49 ML/MIN Rate Random Glucose 106 MG/DL Calcium Level 9.0 MG/DL Magnesium Level 2.0 MG/DL Imaging Last Impressions Tube Placement X-Ray 05/03/16 0000 Signed Impressions: Service Date/Time: Tuesday, May 03, 2016 11:09 - CONCLUSION: Uncomplicated suprapubic catheter exchange. Ifeanyi Whalne MD Chest X-Ray 05/01/16 1437 Signed Impressions: Service Date/Time: Sunday, May 01, 2016 15:08 - CONCLUSION: No acute disease. No significant change has occurred. Ruslan Sánchez MD Objective Remarks General: NAD, AAOx3 Chest: CTA Cardiac: Regular Abd: +BS, soft ND/NT Ext: No edema A/P Problem List: (1) UTI (urinary tract infection) Status: Acute Plan: - Pt has severe M.S. and has had suprapubic catheter which is typically exchanged monthly by her urologist. - She has long hx of complicated UTI's and MDR infections. - Pt reports that she had fever x 3 days with temp up to 101.4 and was feeling weak as well which she typically gets when infection flares up her MS. - Also she noted cloudy urine with foul odor. - The first UA/culture grew out pseudomonas again. But the u/a was apparently collected incorrectly. - IR exchanged her suprapubic catheter on 05/03 - This was repeated and Urine culture grew out a small amount of Ya, <10, 000CFU/mL - Pt was on Zosyn from 05/01-05/05 then changed to Cipro 500mg po BID on 05/05/16. - Cipro will be continued x 7 days upon discharge. - Pt with complaints of continued weakness and requesting PT at rehab upon discharge. - Cont. PT - DVT prophylaxis - anticipate d/c to rehab either this evening or tomorrow. (2) Multiple sclerosis Status: Chronic Plan: - Pt had more severe peripheral neuropathy in feet 05/04 which improved with increase in Gabapentin - per pt her VasCath has NOT been functioning properly - VasCath evaluated by IR for patency - It was noted by IR that the catheter is in good position with fibrin sheath around the catheter tips and each lumen of the catheter was locked with 2mg TPA. This will be re-evaluated this afternoon - If the VasCath was found to not be patent upon re-evaluation then she will followup outpt with IR for VasCath exchange. (3) HTN (hypertension), benign Status: Chronic Plan: - Cont current rx (4) Lupus (systemic lupus erythematosus) Status: Chronic Plan: - Continue outpatient therapy. (5) GERD (gastroesophageal reflux disease) Status: Chronic Plan: - Continue outpatient therapy. Assessment and Plan Patient examined. Assessment and plan formulated with Katherin Nava PA-C. I agree with the above. Problem Qualifiers (1) UTI (urinary tract infection): Qualified Code: N39.0 - Urinary tract infection without hematuria, site unspecified (2) GERD (gastroesophageal reflux disease): Qualified Code: K21.9 - Gastroesophageal reflux disease, esophagitis presence not specified Katherin Nava May 07, 2016 14:30 Jan Stevens DO May 11, 2016 22:37
--- NOTE | 2016-05-07 14:37 | RADRPT ---
EXAM DATE/TIME: 05/07/2016 11:31 [facility] COMPARISON: SUPRAPUBIC TUBE EXCHANGE, May 03, 2016, 11:09. INDICATIONS : Patient is in need of a patency injectio for evaluation of existing Permacath for plasmaphoresis due to non functionality. MEDICAL HISTORY : History of multiple sclerosis, lupus, fibromyalgia, bipolar disorder, gastroparesis, recurrent urinar y tract infection. SURGICAL HISTORY : History of central venous catheter placement, suprapubic catheter, cervical discectomy and arthrodesi s, hysterectomy, ORIF right ankle, cholecystectomy, arthroscopic meniscus repair. ENCOUNTER: Initial ACUITY: 4-6 days PAIN SCORE: 0/10 FLUORO TIME: 0.3 minutes CONTRAST: 10 cc Omnipaque (iohexol) 350 ACCESS: Left internal jugular vein MEDICATION(S): 1.) 4 mg TPA IV PROCEDURE : 1. Access of [id number]. 2. Port patency injection. The risks, benefits and alternatives to the procedure were explained and verbal and written consent w as obtained. The patient was placed supine. The port was prepped in sterile fashion. Full sterile t echnique was used, including cap, mask, sterile gloves and gown, and a large sterile sheet. Hand hyg iene and 2% chlorhexidine prep was utilized per protocol for cutaneous antisepsis with appropriate dr y time for site. The patient's dialysis catheter was examined under fluoroscopy. The catheter was in good position. Th e port tips are at the level of the right atria. Contrast was injected through both the arterial and venous lumens of the catheter. These demonstrate a sizable amount of fibrin sheath surrounding the distal aspect of the catheter. Each lumen of the catheter was locked with 2 mg of TPA. CONCLUSION: 1. There is a sizable fibrin sheath around the distal aspect of the catheter. Each lumen of the kory ter was locked with 2 mg of TPA. Zach Sterling MD on May 07, 2016 at 14:35 Board Certified Radiologist. This report was verified electronically.
--- NOTE | 2016-06-12 22:06 | HHI.DS ---
Discharge Summary Admission Date May 01, 2016 at 18:04 Discharge Date: May 07, 2016 Admitting Diagnosis UTI, indwelling Mendoza, MS (1) UTI (urinary tract infection) Diagnosis: Principal (2) Multiple sclerosis Diagnosis: Principal (3) HTN (hypertension), benign Diagnosis: Secondary (4) Lupus (systemic lupus erythematosus) Diagnosis: Secondary (5) GERD (gastroesophageal reflux disease) Diagnosis: Secondary Brief History Pleasant 60-year-old Afro-Maldivian female with underlying multiple sclerosis since 2012 and indwelling suprapubic catheter for approximately a year and a half presents via E Vac sent from her neurologist's office secondary to reported fever over the last 2 days. Patient reports MAXIMUM TEMPERATURE was yesterday afternoon at 101.4. Had no nausea or vomiting. She's had a cough with slight phlegm production which started today. Denies hemoptysis or hematemesis. She's had recurrent urinary tract infections in the past with some multidrug-resistant organisms. She was actually hospitalized a few months ago with pseudomonal UTI with multidrug resistance. On evaluation in the ER she does not appear toxic and is afebrile. CBC is essentially unremarkable. It is noted the patient is on immune O suppressant medication for her MS and also gets plasmapheresis periodically with last plasmapheresis being done March 15 of this year. She does report some purulent discharge and foul smell in her urine the last couple of days. Urine collected in the ER has findings which could be consistent with infectious process. Imaging Last Impressions Venous Access Device Injection 05/07/16 0000 Signed Impressions: Service Date/Time: Saturday, May 07, 2016 11:31 - CONCLUSION: 1. There is a sizable fibrin sheath around the distal aspect of the catheter. Each lumen of the catheter was locked with 2 mg of TPA. Zach Sterling MD Tube Placement X-Ray 05/03/16 0000 Signed Impressions: Service Date/Time: Tuesday, May 03, 2016 11:09 - CONCLUSION: Uncomplicated suprapubic catheter exchange. Ifeanyi Whalen MD Chest X-Ray 05/01/16 1437 Signed Impressions: Service Date/Time: Sunday, May 01, 2016 15:08 - CONCLUSION: No acute disease. No significant change has occurred. Ruslan Sánchez MD PE at Discharge General: NAD, AAOx3 Chest: CTA Cardiac: Regular Abd: +BS, soft ND/NT Ext: No edema Hospital Course (1) UTI (urinary tract infection) Status: Acute Plan: - Pt has severe M.S. and has had suprapubic catheter which is typically exchanged monthly by her urologist. - She has long hx of complicated UTI's and MDR infections. - Pt reports that she had fever x 3 days with temp up to 101.4 and was feeling weak as well which she typically gets when infection flares up her MS. - Also she noted cloudy urine with foul odor. - The first UA/culture grew out pseudomonas again. But the u/a was apparently collected incorrectly. - IR exchanged her suprapubic catheter on 05/03 - This was repeated and Urine culture grew out a small amount of Ya, <10, 000CFU/mL - Pt was on Zosyn from 05/01-05/05 then changed to Cipro 500mg po BID on 05/05/16. - Cipro will be continued x 7 days upon discharge. - Pt with complaints of continued weakness and requesting PT at rehab upon discharge. - Pt discharged to SNF (2) Multiple sclerosis Status: Chronic Plan: - Pt had more severe peripheral neuropathy in feet 05/04 which improved with increase in Gabapentin - per pt her VasCath has NOT been functioning properly - VasCath evaluated by IR for patency - It was noted by IR that the catheter is in good position with fibrin sheath around the catheter tips and each lumen of the catheter was locked with 2mg TPA. (3) HTN (hypertension), benign Status: Chronic Plan: - Cont current rx (4) Lupus (systemic lupus erythematosus) Status: Chronic Plan: - Continue outpatient therapy. (5) GERD (gastroesophageal reflux disease) Status: Chronic Plan: - Continue outpatient therapy. Pt Condition on Discharge: Stable Discharge Disposition: Disch w/ Home Health Serv Discharge Instructions DIET: Follow Instructions for: Heart Healthy Diet Activities you can perform: Weight Bearing as [place] Follow up Referrals: PCP Follow-up - [address] Chaitanya Mann New Medications: Gabapentin (Neurontin) 300 Mg Cap 600 MG PO BID peripheral neuropathy #62 CAP Gabapentin (Neurontin) 300 Mg Cap 300 MG PO DAILY@1300 peripheral neuropathy #31 CAP Continued Medications: Aspirin (Aspirin) 325 Mg Tab 325 MG PO DAILY #30 Ref 0 TAB B-Complex Vitamins (Vitamin B Complex) 1 Tab 1 TAB PO DAILY Baclofen (Baclofen) 10 Mg Tab 10 MG PO BID PRN MUSCLE SPASM Ref 0 TAB Cholecalciferol (D 43737) 10,000 Unit Cap 1 CAP PO DAILY Clonidine (Catapres) 0.2 Mg Tab 0.2 MG PO TID Blood Pressure Management #60 Ref 0 TAB Cyanocobalamin (Vitamin B-12) 100 Mcg Tab 100 MCG PO DAILY #1 BOTTLE Furosemide (Furosemide) 40 Mg Tab 40 MG PO DAILY #30 Ref 0 TAB Hydromorphone (Dilaudid) 4 Mg Tab 4 MG PO Q8H PRN Pain Management #30 Ref 0 TAB (This prescription has been renewed) Hydroxychloroquine (Plaquenil) 200 Mg Tab 200 MG PO BID Take with food #60 Ref 0 TAB Losartan (Cozaar) 100 Mg Tab 100 MG PO HS Blood Pressure Management #30 Ref 0 TAB Nifedipine ER 24 HR (Procardia XL) 60 Mg Tab 60 MG PO DAILY #30 Ref 0 TAB Pantoprazole (Protonix) 20 Mg Tab 20 MG PO DAILY Reflux #30 Ref 0 TAB Potassium Chloride ER (Potassium Chloride ER) 20 Meq Tab 20 MEQ PO DAILY Electrolyte Replacement #30 Ref 0 TAB Teriflunomide (Aubagio) 14 Mg Tab 14 MG PO DAILY Multiple sclerosis #30 Ref 0 TAB Discontinued Medications: Gabapentin (Gabapentin) 300 Mg Cap 300 MG PO BID #60 Ref 0 CAP Gabapentin (Gabapentin) 600 Mg Tab 600 MG PO HS #30 Ref 0 TAB Jan Stevens DO Jun 12, 2016 22:06
[2016-08-27] MEDS ORDERED: METH-715 PO (17:08)
== END 2016-05-07 18:39 | DRG 690 ==
LOC: NEPC 14:21 → INTOOBSV 18:04 → NEDA 18:04 → OBSVTOIN 18:04 → NEPFCDU 21:47 → NEPHCDU 05-03 13:37 → N05B 05-03 15:39
PROVIDERS: ADMIT Hospitalist; ATTEND Hospitalist
PROC: 0T2BX0Z Change Drainage Device in Bladder, External Approach (ICD-10-PCS; 2016-05-03)
PROC: 3E04317 Introduction of Other Thrombolytic into Central Vein, Percutaneous Approach (ICD-10-PCS; principal; 2016-05-07)
PROC: B5141ZZ Fluoroscopy of Left Jugular Veins using Low Osmolar Contrast (ICD-10-PCS; 2016-05-07)
DX: N39.0 Urinary tract infection, site not specified (principal); M32.9 Systemic lupus erythematosus, unspecified; T82.898A Other specified complication of vascular prosthetic devices, implants and grafts, initial encounter; Z68.42 Body mass index [BMI] 45.0-49.9, adult; G35 Multiple sclerosis; G62.9 Polyneuropathy, unspecified; I10 Essential (primary) hypertension; Z93.59 Other cystostomy status; Z87.440 Personal history of urinary (tract) infections; M79.7 Fibromyalgia; Z99.3 Dependence on wheelchair; F31.9 Bipolar disorder, unspecified; E66.9 Obesity, unspecified; Z71.3 Dietary counseling and surveillance; K31.84 Gastroparesis; K21.9 Gastro-esophageal reflux disease without esophagitis
CPT/HCPCS: 36598; 51705; 71010; 76937; 80048; 80053; 81001; 83605; 83735; 85025; 87040; 87077; 87086; 87186; 99285; C1769; C1887; J2250; J2405; J2543; J2997; J3010; Q0169; Q9967

== ENCOUNTER 2016-05-18 09:50 | Emergency (ER) | payer MEDICARE, OTHER ==
[~2016-05-18] VITALS: Ht 168.9 cm; Wt 110.0 kg
[~2016-05-18 09:50] MED LIST changes: -AMOX500T PO; +CIPR-9 PO; -CRANCAP11 PO; -GABA300C5 PO; -GABA600T PO; +NEUR300C PO; +TOVI4TAB PO
[2016-05-18 09:55] VITALS: BP 132/80; PULSE 61; RESP 20; TEMP 98; O2SAT 95
[2016-05-18 09:59] VITALS: BP 139/88; PULSE 57; RESP 14; O2SAT 96
[2016-05-18 10:41] VITALS: BP 146/81
--- NOTE | 2016-05-18 10:48 | PD ---
HPI Chief Complaint: Hypertension Time Seen by Provider: 10:25 Travel History International Travel<30 days: No Contact w/Intl Traveler<30days: No Traveled to known affect area: No History of Present Illness HPI 53-year-old female came to the emergency room with history of hypertension that was poorly controlled through the night. She was sent from the assisted. She was given a couple of different medications throughout the night. Currently her blood pressure is well controlled. It is 135 systolic. And is awake and talking and answering questions appropriately. PFSH Past Medical History Narrative Medical List of her past medical history reviewed from the nursing note. Hx Anticoagulant Therapy: Yes (ASA 325 MG DAILY) Arthritis: Yes Asthma: No Autoimmune Disease: Yes (LUPUS, MS, RA AND SPINAL STENOSIS) Blood Disorders: No Bipolar Disorder: Yes Anxiety: No Depression: Yes Heart Rhythm Problems: Yes (TACHYCARDIA ) Cancer: No Cardiac Catheterization: No Cardiovascular Problems: Yes High Cholesterol: No Chemotherapy: No Chest Pain: No Congestive Heart Failure: No COPD: No Cerebrovascular Accident: No Diabetes: No Diminished Hearing: No Endocrine: No Fibromyalgia: Yes GERD: No Genitourinary: No Headaches: Yes Hepatitis: No Hiatal Hernia: No Hypertension: Yes Immune Disorder: Yes (LUPUS, MS, RA AND SPINAL STENOSIS) Implanted Vascular Access Dvce: Yes Kidney Stones: No Medical other: Yes (HX MENINGITIS, LUPUS, FIBROMYALGIA) Musculoskeletal: Yes Neurologic: Yes Psychiatric: Yes Reproductive: No Respiratory: Yes Immunizations Current: Yes Migraines: Yes Radiation Therapy: No Renal Failure: No Seizures: No Sickle Cell Disease: No Sleep Apnea: No Thyroid Disease: No Ulcer: No PNEUMOCCOCAL Vaccine (Year): 2 ?: Not Menopausal: Yes : 3 Para: 2 Miscarriage: 1 Ovarian Cysts: Yes Tubal Ligation: Yes Past Surgical History Abdominal Surgery: No AICD: No Appendectomy: No Arteriovenous Shunt: No Body Medical Devices: METAL PLATES RIGHT ANKLE, METAL IN NECK Cardiac Surgery: No Cholecystectomy: Yes Coronary Artery Bypass Graft: No Ear Surgery: No Endocrine Surgery: No Eye Surgery: No Genitourinary Surgery: No Gynecologic Surgery: Yes Hysterectomy: Yes (PARTIAL) Insulin Pump: No Joint Replacement: No Oral Surgery: No Pacemaker: No Thoracic Surgery: No Other Surgery: Yes (RIGHT LEG SURGERY, PLASMA PORT ) Family History Family Myocardial Infarction: Yes Social History Alcohol Use: No Tobacco Use: No Substance Use: No Allergies-Medications (Allergen,Severity, Reaction): Coded Allergies: Adhesives (Verified Allergy, Severe, Rash, 05/18/16) Codeine (Verified Allergy, Severe, SWELLING AND DIFFICULTY BREATHING, 05/18) Dynacirc (Verified Allergy, Severe, ELEVATED HEART RATE, 05/18/16) Lortab (Verified Allergy, Severe, RASH AND SWELLING, 05/18/16) Percocet (Verified Allergy, Severe, ITCHING, 05/18/16) Solu-Medrol (Verified Allergy, Severe, Shortness of Breath, 05/18/16) *MDRO Multi-Drug Resistant Organism (Verified Adverse Reaction, Unknown, ) 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 Reported Meds & Prescriptions Reported Meds & Active Scripts Active Dilaudid (Hydromorphone HCl) 4 Mg Tab 4 Mg PO Q8H PRN Neurontin (Gabapentin) 300 Mg Cap 300 Mg PO DAILY@1300 Neurontin (Gabapentin) 300 Mg Cap 600 Mg PO BID Reported Toviaz ER (Fesoterodine Fumarate) 8 Mg Lou 8 Mg PO DAILY Florastor (Saccharomyces Boulardii) 250 Mg Cap 250 Mg PO BID Nifedipine 10 Mg Cap 30 Mg PO HS Aubagio (Teriflunomide) 14 Mg Tab 14 Mg PO DAILY Furosemide 40 Mg Tab 40 Mg PO DAILY Protonix (Pantoprazole Sodium) 20 Mg Tab 20 Mg PO DAILY Procardia XL (Nifedipine) 60 Mg Tab 60 Mg PO DAILY Plaquenil (Hydroxychloroquine Sulfate) 200 Mg Tab 200 Mg PO BID Take with food Potassium Chloride ER (Potassium Chloride) 20 Meq Tab 20 Meq PO DAILY Cozaar (Losartan Potassium) 100 Mg Tab 100 Mg PO HS Catapres (Clonidine) 0.2 Mg Tab 0.2 Mg PO TID Aspirin 325 Mg Tab 325 Mg PO DAILY Vitamin B-12 (Cyanocobalamin) 100 Mcg Tab 100 Mcg PO DAILY D 94636 (Cholecalciferol) 10,000 Unit Cap 1 Cap PO DAILY Baclofen 10 Mg Tab 10 Mg PO BID PRN Vitamin B Complex (B-Complex Vitamins) 1 Tab 1 Tab PO DAILY Narrative Medication List of her home medications reviewed from the nursing note. Review of Systems Except as stated in HPI: all other systems reviewed are Neg Physical Exam Narrative GENERAL: Awake, alert, obese, no obvious distress. SKIN: Warm and dry. HEAD: Atraumatic. Normocephalic. EYES: Pupils equal and round. No scleral icterus. No injection or drainage. ENT: No nasal bleeding or discharge. Mucous membranes pink and moist. NECK: Trachea midline. No JVD. CARDIOVASCULAR: Regular rate and rhythm. No murmur appreciated. RESPIRATORY: No accessory muscle use. Clear to auscultation. Breath sounds equal bilaterally. GASTROINTESTINAL: Abdomen soft, non-tender, nondistended. Hepatic and splenic margins not palpable. MUSCULOSKELETAL: No obvious deformities. No clubbing. No cyanosis. No edema. NEUROLOGICAL: Awake and alert. No obvious cranial nerve deficits. Motor grossly within normal limits. Normal speech. PSYCHIATRIC: Appropriate mood and affect; insight and judgment normal. Data Data Last Documented VS Vital Signs Date Time Temp Pulse Resp B/P Pulse Ox O2 Delivery O2 Flow Rate FiO2 05/18/16 10:41 146/81 05/18/16 09:59 96 Room Air 05/18/16 09:59 57 14 05/18/16 09:55 98.0 Orders Electrocardiogram (05/18/16 ) [facility] Medical Decision Making Medical Screen Exam Complete: Yes Emergency Medical Condition: Yes Medical Record Reviewed: Yes Interpretation(s) Twelve-lead EKG was reviewed by me. Normal sinus rhythm, normal axis, poor R- wave progression, nonspecific ST-T wave changes, bradycardia. Heart rate of 58 bpm. Differential Diagnosis Essential hypertension Narrative Course 10:45 AM blood pressure is completely within normal limit. It's controlled essential hypertension and there is nothing else to treat. I'll discharge her back to the assisted. Procedures EKG Prior to Arrival: Yes Diagnosis Primary Impression: Essential hypertension Referrals: Primary Care Physician 2 days Additional Instructions: Please follow-up with your primary care. Med/Other Pt SpecificInfo: No Change to Meds Disposition: 01 DISCHARGE HOME Condition: Stable Grant Wharton MD May 18, 2016 10:48
[2016-05-18] MEDS ORDERED: NIFE10CA PO (10:50)
[2016-05-18] MEDS ORDERED: FLOR250C PO (10:52)
[2016-05-18] MEDS ORDERED: TOVI8TAB PO (10:58)
--- NOTE | 2016-05-18 14:55 | EKG ---
Date Performed: 05/18/2016 Time Performed: 10:05:21 PTAGE: 60 years EKG: SINUS BRADYCARDIA Poor R wave progression, possible normal variant but with anterior injury BORDERLINE ECG PREVIOUS TRACING : 01/02/2016 00.58 DOCTOR: Dell Kate Interpretating Date/Time 05/18/2016 14:54:24
[2016-08-27] MEDS ORDERED: METH-715 PO (17:08)
== END 2016-05-18 12:53 | disposition home or self-care (01) ==
LOC: NEPC 09:50
DX: I10 Essential (primary) hypertension (principal)
CPT/HCPCS: 93005

== ENCOUNTER 2016-06-28 18:22 | Observation (INO) | payer MEDICARE ==
[~2016-06-28] VITALS: Ht 170.2 cm; Wt 116.0 kg
[~2016-06-28 18:22] MED LIST changes: -CIPR-9 PO; +FLOR250C PO; +NIFE10CA PO; -NIFE20 PO; -TOVI4TAB PO; +TOVI8TAB PO
[2016-06-28 18:25] VITALS: BP 171/88; PULSE 77; RESP 18; TEMP 98.3; O2SAT 98
[2016-06-28 20:00] VITALS: BP 165/71; PULSE 88; RESP 18; O2SAT 97
[2016-06-28] MEDS ORDERED: LISI-515 PO (21:12)
[2016-06-28] MEDS ORDERED: VITA500C9 CHEW (21:12)
[2016-06-28] MEDS ORDERED: CRANCAP2 PO (21:12)
--- NOTE | 2016-06-28 21:12 | PD ---
HPI . headache, chest pain, sob x 5 days Chief Complaint: Headache Time Seen by Provider: 21:12 Travel History International Travel<30 days: No Contact w/Intl Traveler<30days: No Traveled to known affect area: No History of Present Illness HPI 60-year-old female with lupus, rheumatoid arthritis, spinal stenosis, hypertension, multiple sclerosis and migraine history here with complaints of headache, chest discomfort and fullness, shortness of breath, palpitations for 5 days. Patient says she has had some trouble with bronchitis and has been treated with azithromycin and Levaquin, which she has completed for over one week. She tells me that she has a pain in her head that radiates down the right side into her jaw. She rates the pain as a 10/10 on pain scale. She does report having a slight temperature yesterday of 99.2. She is having facial pain and head congestion. She is still coughing from her bronchitis and trying to get over it. She says she was recently admitted to [facility] and tells me she will never go there again as they did not live up to their reputation. She is accompanied by her . PFSH Past Medical History Hx Anticoagulant Therapy: Yes (ASA 325 MG DAILY) Arthritis: Yes Asthma: No Autoimmune Disease: Yes (LUPUS, MS, RA AND SPINAL STENOSIS) Blood Disorders: No Bipolar Disorder: Yes Anxiety: No Depression: Yes Heart Rhythm Problems: Yes (TACHYCARDIA ) Cancer: No Cardiac Catheterization: No Cardiovascular Problems: Yes High Cholesterol: No Chemotherapy: No Chest Pain: No Congestive Heart Failure: No COPD: No Cerebrovascular Accident: No Diabetes: No Diminished Hearing: No Endocrine: No Fibromyalgia: Yes GERD: No Genitourinary: No Headaches: Yes Hepatitis: No Hiatal Hernia: No Hypertension: Yes Immune Disorder: Yes (LUPUS, MS, RA AND SPINAL STENOSIS) Implanted Vascular Access Dvce: Yes Kidney Stones: No Musculoskeletal: Yes Neurologic: Yes Psychiatric: Yes Reproductive: No Respiratory: Yes Immunizations Current: Yes Migraines: Yes Radiation Therapy: No Renal Failure: No Seizures: No Sickle Cell Disease: No Sleep Apnea: No Thyroid Disease: No Ulcer: No PNEUMOCCOCAL Vaccine (Year): 2 ?: Not Menopausal: Yes : 3 Para: 2 Miscarriage: 1 Ovarian Cysts: Yes Tubal Ligation: Yes Past Surgical History Abdominal Surgery: No AICD: No Appendectomy: No Arteriovenous Shunt: No Body Medical Devices: METAL PLATES RIGHT ANKLE, METAL IN NECK Cardiac Surgery: No Cholecystectomy: Yes Coronary Artery Bypass Graft: No Ear Surgery: No Endocrine Surgery: No Eye Surgery: No Genitourinary Surgery: No Gynecologic Surgery: Yes Hysterectomy: Yes (PARTIAL) Insulin Pump: No Joint Replacement: No Oral Surgery: No Pacemaker: No Thoracic Surgery: No Other Surgery: Yes (RIGHT LEG SURGERY, PLASMA PORT ) Social History Alcohol Use: No Tobacco Use: No Substance Use: No Allergies-Medications (Allergen,Severity, Reaction): Coded Allergies: Adhesives (Verified Allergy, Severe, Rash, 06/28/16) Albuterol (Verified Allergy, Severe, SORES, 06/28/16) Codeine (Verified Allergy, Severe, SWELLING AND DIFFICULTY BREATHING, 06/28) Dynacirc (Verified Allergy, Severe, ELEVATED HEART RATE, 06/28/16) Lortab (Verified Allergy, Severe, RASH AND SWELLING, 06/28/16) Percocet (Verified Allergy, Severe, ITCHING, 06/28/16) Solu-Medrol (Verified Allergy, Severe, Shortness of Breath, 06/28/16) *MDRO Multi-Drug Resistant Organism (Verified Adverse Reaction, Unknown, ) 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 Reported Meds & Prescriptions Reported Meds & Active Scripts Active Dilaudid (Hydromorphone HCl) 4 Mg Tab 4 Mg PO Q8H PRN Neurontin (Gabapentin) 300 Mg Cap 300 Mg PO DAILY@1300 Neurontin (Gabapentin) 300 Mg Cap 600 Mg PO BID Reported Cranberry Urinary Comfort (Vitamins C & E) 1 Cap 1 Cap PO DAILY Vitamin C (Ascorbic Acid) 500 Mg Chew 500 Mg CHEW DAILY Lisinopril 20 Mg Tab 20 Mg PO DAILY Toviaz ER (Fesoterodine Fumarate) 8 Mg Lou 8 Mg PO DAILY Nifedipine 10 Mg Cap 30 Mg PO HS Aubagio (Teriflunomide) 14 Mg Tab 14 Mg PO DAILY Furosemide 40 Mg Tab 40 Mg PO DAILY Protonix (Pantoprazole Sodium) 20 Mg Tab 20 Mg PO DAILY Procardia XL (Nifedipine) 60 Mg Tab 60 Mg PO DAILY Plaquenil (Hydroxychloroquine Sulfate) 200 Mg Tab 200 Mg PO BID Take with food Potassium Chloride ER (Potassium Chloride) 20 Meq Tab 20 Meq PO DAILY Catapres (Clonidine) 0.2 Mg Tab 0.2 Mg PO TID Aspirin 325 Mg Tab 325 Mg PO DAILY Vitamin B-12 (Cyanocobalamin) 100 Mcg Tab 100 Mcg PO DAILY D 92093 (Cholecalciferol) 10,000 Unit Cap 1 Cap PO DAILY Vitamin B Complex (B-Complex Vitamins) 1 Tab 1 Tab PO DAILY Review of Systems General / Constitutional: Positive: Fever, Chills Cardiovascular: Positive: Chest Pain or Discomfort, Palpitations Respiratory: Positive: Cough, Shortness of Breath Physical Exam Narrative GENERAL: AAO x 3, no acute distress, Well-nourished, well-developed patient. SKIN: Warm and dry. No visible rashes or bruising. HEAD: Normocephalic and atraumatic. EYES: No scleral icterus. No injection or drainage. EOM intact, PERRLA ENT: No nasal drainage noted. Mucous membranes pink. Airway patent. Right cloudy TM, mild bulging. + frontal and maxillary sinus tenderness. NECK: Supple, trachea midline. No JVD. CARDIOVASCULAR: Regular rate and rhythm without murmurs, gallops, or rubs. RESPIRATORY: Breath sounds equal bilaterally. No accessory muscle use. No rhonchi or rales. GASTROINTESTINAL: Abdomen soft, non-tender, nondistended. EXTREMITIES: No cyanosis or edema. BACK: Nontender without obvious deformity. No CVA tenderness. PSYCH: AAO x 3, normal affect. Data Data Last Documented VS Vital Signs Date Time Temp Pulse Resp B/P Pulse Ox O2 Delivery O2 Flow Rate FiO2 06/28/16 22:38 18 98 Room Air 06/28/16 18:25 98.3 77 171/88 Orders Electrocardiogram (06/28/16 21:22) Ckmb (Isoenzyme) Profile (06/28/16 21:22) Complete Blood Count With Diff (06/28/16 21:22) Comprehensive Metabolic Panel (06/28/16 21:22) Magnesium (Mg) (06/28/16 21:22) Prothrombin Time / Inr (Pt) (06/28/16 21:22) Act Partial Throm Time (Ptt) (06/28/16 21:22) Troponin I (06/28/16 21:22) Chest, Single Ap (06/28/16 21:22) Ecg Monitoring (06/28/16 21:22) Bilateral Bp Monitoring (06/28/16 21:22) Iv Access Insert/Monitor (06/28/16 21:22) Oximetry (06/28/16 21:22) Oxygen Administration (06/28/16 21:22) Sodium Chloride 0.9% Flush (Ns Flush) (06/28/16 21:30) [place] Sedimentation Rate (06/28/16 21:22) Blood Culture (06/28/16 21:22) Ct Brain W/O Iv Contrast(Rout) (06/28/16 21:22) Sodium Chloride 0.9% Flush (Ns Flush) (06/28/16 21:30) Lactic Acid Sepsis Protocol (06/28/16 21:22) Urinalysis - C+S If Indicated (06/28/16 21:22) Influenzae A/B Antigen (06/28/16 21:22) Urine Culture (06/28/16 21:45) Labs Laboratory Tests Test 06/28/16 06/28/16 06/28/16 21:45 22:24 22:30 Urine Color YELLOW Urine Turbidity HAZY Urine pH 5.5 Urine Specific [place] 1.020 Urine Protein 30 mg/dL Urine Glucose (UA) NEG mg/dL Urine Ketones NEG mg/dL Urine Occult Blood TRACE Urine Nitrite NEG Urine Bilirubin NEG Urine Urobilinogen 2.0 MG/DL Urine Leukocyte Esterase LARGE Urine RBC 12 /hpf Urine WBC 45 /hpf Urine WBC Clumps MANY Urine Squamous Epithelial 3 /hpf Cells Urine Bacteria OCC /hpf Urine Hyaline Casts 40 /lpf Urine Mucus FEW /lpf Microscopic Urinalysis Comment CATH-CULTURE IND White Blood Count 7.6 TH/MM3 Red Blood Count 4.25 MIL/MM3 Hemoglobin 11.9 GM/DL Hematocrit 35.3 % Mean Corpuscular Volume 83.2 FL Mean Corpuscular Hemoglobin 27.9 PG Mean Corpuscular Hemoglobin 33.6 % Concent Red Cell Distribution Width 15.1 % Platelet Count 252 TH/MM3 Mean Platelet Volume 8.2 FL Neutrophils (%) (Auto) 54.1 % Lymphocytes (%) (Auto) 24.4 % Monocytes (%) (Auto) 7.6 % Eosinophils (%) (Auto) 12.9 % Basophils (%) (Auto) 1.0 % Neutrophils # (Auto) 4.1 TH/MM3 Lymphocytes # (Auto) 1.9 TH/MM3 Monocytes # (Auto) 0.6 TH/MM3 Eosinophils # (Auto) 1.0 TH/MM3 Basophils # (Auto) 0.1 TH/MM3 CBC Comment DIFF FINAL Differential Comment Erythrocyte Sedimentation Rate 7 mm/hr Prothrombin Time 10.2 SEC Prothromb Time International 0.9 RATIO Ratio Activated Partial 25.7 SEC Thromboplast Time Sodium Level 145 MEQ/L Potassium Level 3.3 MEQ/L Chloride Level 107 MEQ/L Carbon Dioxide Level 31.0 MEQ/L Anion Gap 7 MEQ/L Blood Urea Nitrogen 13 MG/DL Creatinine 1.01 MG/DL Estimat Glomerular Filtration 68 ML/MIN Rate Random Glucose 123 MG/DL Calcium Level 9.0 MG/DL Magnesium Level 1.8 MG/DL Total Bilirubin 0.7 MG/DL Aspartate Amino Transf 24 U/L (AST/SGOT) Alanine Aminotransferase 32 U/L (ALT/SGPT) Alkaline Phosphatase 74 U/L Total Creatine Kinase 87 U/L Troponin I LESS THAN 0.02 NG/ML Total Protein 6.9 GM/DL Albumin 4.2 GM/DL Lactic Acid Level 1.1 mmol/L [facility] Medical Decision Making Medical Screen Exam Complete: Yes Emergency Medical Condition: Yes Medical Record Reviewed: Yes Differential Diagnosis mastoiditis, sinusitis, costochondritis, angina, less likely brain mass or bleed , less likely ACS Narrative Course 60-year-old female with lupus, rheumatoid arthritis, spinal stenosis, hypertension, multiple sclerosis and migraine history here with complaints of headache, chest discomfort and fullness, shortness of breath, palpitations for 5 days. Patient says she has had some trouble with bronchitis and has been treated with azithromycin and Levaquin, which she has completed for over one week. She tells me that she has a pain in her head that radiates down the right side into her jaw. She rates the pain as a 10/10 on pain scale. She does report having a slight temperature yesterday of 99.2. She is having facial pain and head congestion. She is still coughing from her bronchitis and trying to get over it. She says she was recently admitted to [facility] and tells me she will never go there again as they did not live up to their reputation. She is accompanied by her . 1051: CBC unremarkable. UA + UTI, Influenza negative. CT brain normal. Except for pansinusitis, which I think is the main contributor to her head pain/headache. CXR normal. I signed off the case as labs were still pending. Dr. Naranjo will resume care and determine disposition and further treatment. Yun Zepeda Jun 28, 2016 21:12
[2016-06-28] MEDS ORDERED: SODIUM CHLORIDE 0.9% FLUSH 5 ML FLUSH IVF PRN ×2 (21:30)
[2016-06-28 22:00] VITALS: BP 167/75; PULSE 85; RESP 18; O2SAT 97
--- NOTE | 2016-06-28 22:12 | RADRPT ---
EXAM DATE/TIME: 06/28/2016 21:52 [facility] COMPARISON: No previous studies available for comparison. INDICATIONS : Cephalgia today. RADIATION DOSE: 56.35 CTDIvol (mGy) MEDICAL HISTORY : Hypertension. SURGICAL HISTORY : None. ENCOUNTER: Initial ACUITY: 1 day PAIN SCALE: 5/10 LOCATION: cranial TECHNIQUE: Multiple contiguous axial images were obtained of the head. Using automated exposure control and adj ustment of the mA and/or kV according to patient size, radiation dose was kept as low as reasonably a chievable to obtain optimal diagnostic quality images. FINDINGS: CEREBRUM: The ventricles are normal for age. No evidence of midline shift, mass lesion, hemorrhage or acute in farction. No extra-axial fluid collections are seen. POSTERIOR FOSSA: The cerebellum and brainstem are intact. The 4th ventricle is midline. The cerebellopontine angle i s unremarkable. EXTRACRANIAL: There is near complete opacification of the visualized paranasal sinuses. Frontal air cells are hypop lastic. SKULL: The calvaria is intact. No evidence of skull fracture. CONCLUSION: No acute intracranial abnormality. Severe pansinusitis. Howie Lopez MD on June 28, 2016 at 22:09 Board Certified Radiologist. This report was verified electronically.
--- NOTE | 2016-06-28 22:20 | RADRPT ---
EXAM DATE/TIME: 06/28/2016 22:01 [facility] COMPARISON: No previous studies available for comparison. INDICATIONS : Chest pain and shortness of breath. MEDICAL HISTORY : Hypertension. Tachycardia SURGICAL HISTORY : Left sided plasma port. ENCOUNTER: Initial ACUITY: 1 day PAIN SCORE: 4/10 LOCATION: chest FINDINGS: A single view of the chest demonstrates the lungs to be symmetrically aerated without evidence of mas s, infiltrate or effusion. The cardiomediastinal contours are unremarkable. Osseous structures are intact. There is a left internal jugular double-lumen dialysis catheter with distal tip in the right atrium. CONCLUSION: No evidence of acute cardiopulmonary disease. Howie Lopez MD on June 28, 2016 at 22:17 Board Certified Radiologist. This report was verified electronically.
[2016-06-28 22:29] LABS: BACTERIA, URINE OCC /hpf; BLOOD, URINE TRACE (NEG); GLUCOSE,URINE NEG (NEG); HYALINE CAST, URINE 40 /lpf (RARE); KETONE, URINE NEG (NEG); MUCUS URINE FEW /lpf (OCC); NITRITE,URINE NEG (NEG); PH, URINE 5.5 (5.0-8.5); SQUAMOUS EPITHELIAL CELL URINE 3 /hpf (0-5); URINE COLOR YELLOW (YELLW/STRAW)
[2016-06-28 22:36] LABS: COMMENT (UR) CATH-CULTURE IND; CULTURE IF INDICATED CATH CULTURE IND
[2016-06-28 22:38] VITALS: RESP 18; O2SAT 98
[2016-06-28 22:48] LABS: AUTOMATED NEUTROPHIL # 4.1 TH/MM3 (1.8-7.7); BASOPHIL # 0.1 TH/MM3 (0-0.2); EOSINOPHIL % 12.9 % (0.0-4.0); HEMATOCRIT 35.3 % (35.0-46.0); HEMO FLAGS DIFF FINAL; LYMPH % 24.4 % (9.0-44.0); LYMPHOCYTE # 1.9 TH/MM3 (1.0-4.8); MEAN CELL VOLUME 83.2 FL (80.0-100.0); MEAN CORPUSCULAR HEMOGLOBIN 27.9 PG (27.0-34.0); MEAN CORPUSCULAR HGB CONC 33.6 % (32.0-36.0); MONO % 7.6 % (0.0-8.0); NEUT % 54.1 % (16.0-70.0); PLATELET COUNT 252 TH/MM3 (150-450); RED BLOOD COUNT 4.25 MIL/MM3 (4.00-5.30); RED CELL DISTRIBUTION WIDTH 15.1 % (11.6-17.2); WHITE BLOOD COUNT 7.6 TH/MM3 (4.0-11.0)
[2016-06-28 22:57] LABS: APTT (PATIENT) 25.7 SEC (24.3-30.1); INTERNATIONAL NORMALIZED RATIO 0.9 RATIO; PROTHROMBIN TIME - PATIENT 10.2 SEC (9.8-11.6)
[2016-06-28 23:09] LABS: ALT (GPT) 32 U/L (10-53); ANION GAP 7 MEQ/L (5-15); AST (GOT) 24 U/L (15-37); BLOOD UREA NITROGEN 13 MG/DL (7-18); CHLORIDE 107 MEQ/L (98-107); GLOMERULAR FILTRATION RATE 68 ML/MIN (>89); MAGNESIUM 1.8 MG/DL (1.5-2.5); POTASSIUM 3.3 MEQ/L (3.5-5.1); SODIUM (NA) 145 MEQ/L (136-145)
[2016-06-28 23:12] LABS: ALKALINE PHOSPHATASE 74 U/L (45-117); TOTAL BILIRUBIN ADULT 0.7 MG/DL (0.2-1.0)
[2016-06-28 23:14] LABS: CREATINE KINASE 87 U/L (26-192)
[2016-06-28] MEDS ORDERED: PIPERACIL-TAZO 3.375 GM PREMIX 50 ML IV ONE (23:30)
[2016-06-28] MEDS ORDERED: HYDROmorphone HCL PF 1 MG/ML VIAL IV PUSH ONE (23:30)
[2016-06-28] MEDS ORDERED: ONDANSETRON HCL 4 MG/2 ML VIAL IV PUSH ONE (23:30)
--- NOTE | 2016-06-28 23:44 | PD ---
Physical Exam Date Seen by Provider: Jun 28, 2016 Time Seen by Provider: 23:39 Narrative accepted in transfer of care from Yun Wilkinson PA-C Data Data Last Documented VS Vital Signs Date Time Temp Pulse Resp B/P Pulse Ox O2 Delivery O2 Flow Rate FiO2 06/28/16 22:38 18 98 Room Air 06/28/16 18:25 98.3 77 171/88 Orders Electrocardiogram (06/28/16 21:22) Ckmb (Isoenzyme) Profile (06/28/16 21:22) Complete Blood Count With Diff (06/28/16 21:22) Comprehensive Metabolic Panel (06/28/16 21:22) Magnesium (Mg) (06/28/16 21:22) Prothrombin Time / Inr (Pt) (06/28/16 21:22) Act Partial Throm Time (Ptt) (06/28/16 21:22) Troponin I (06/28/16 21:22) Chest, Single Ap (06/28/16 21:22) Ecg Monitoring (06/28/16 21:22) Bilateral Bp Monitoring (06/28/16 21:22) Iv Access Insert/Monitor (06/28/16 21:22) Oximetry (06/28/16 21:22) Oxygen Administration (06/28/16 21:22) Sodium Chloride 0.9% Flush (Ns Flush) (06/28/16 21:30) Westergren Sedimentation Rate (06/28/16 21:22) Blood Culture (06/28/16 21:22) Ct Brain W/O Iv Contrast(Rout) (06/28/16 21:22) Sodium Chloride 0.9% Flush (Ns Flush) (06/28/16 21:30) Lactic Acid Sepsis Protocol (06/28/16 21:22) Urinalysis - C+S If Indicated (06/28/16 21:22) Influenzae A/B Antigen (06/28/16 21:22) Urine Culture (06/28/16 21:45) Piperacil-Tazo 3.375 Gm Premix (Zosyn 3. (06/28/16 23:30) Hydromorphone Pf Inj (Dilaudid Pf Inj) (06/28/16 23:30) Ondansetron Inj (Zofran Inj) (06/28/16 23:30) Labs Laboratory Tests Test 06/28/16 06/28/16 06/28/16 21:45 22:24 22:30 Urine Color YELLOW Urine Turbidity HAZY Urine pH 5.5 Urine Specific [place] 1.020 Urine Protein 30 mg/dL Urine Glucose (UA) NEG mg/dL Urine Ketones NEG mg/dL Urine Occult Blood TRACE Urine Nitrite NEG Urine Bilirubin NEG Urine Urobilinogen 2.0 MG/DL Urine Leukocyte Esterase LARGE Urine RBC 12 /hpf Urine WBC 45 /hpf Urine WBC Clumps MANY Urine Squamous Epithelial 3 /hpf Cells Urine Bacteria OCC /hpf Urine Hyaline Casts 40 /lpf Urine Mucus FEW /lpf Microscopic Urinalysis Comment CATH-CULTURE IND White Blood Count 7.6 TH/MM3 Red Blood Count 4.25 MIL/MM3 Hemoglobin 11.9 GM/DL Hematocrit 35.3 % Mean Corpuscular Volume 83.2 FL Mean Corpuscular Hemoglobin 27.9 PG Mean Corpuscular Hemoglobin 33.6 % Concent Red Cell Distribution Width 15.1 % Platelet Count 252 TH/MM3 Mean Platelet Volume 8.2 FL Neutrophils (%) (Auto) 54.1 % Lymphocytes (%) (Auto) 24.4 % Monocytes (%) (Auto) 7.6 % Eosinophils (%) (Auto) 12.9 % Basophils (%) (Auto) 1.0 % Neutrophils # (Auto) 4.1 TH/MM3 Lymphocytes # (Auto) 1.9 TH/MM3 Monocytes # (Auto) 0.6 TH/MM3 Eosinophils # (Auto) 1.0 TH/MM3 Basophils # (Auto) 0.1 TH/MM3 CBC Comment DIFF FINAL Differential Comment Erythrocyte Sedimentation Rate 7 mm/hr Prothrombin Time 10.2 SEC Prothromb Time International 0.9 RATIO Ratio Activated Partial 25.7 SEC Thromboplast Time Sodium Level 145 MEQ/L Potassium Level 3.3 MEQ/L Chloride Level 107 MEQ/L Carbon Dioxide Level 31.0 MEQ/L Anion Gap 7 MEQ/L Blood Urea Nitrogen 13 MG/DL Creatinine 1.01 MG/DL Estimat Glomerular Filtration 68 ML/MIN Rate Random Glucose 123 MG/DL Calcium Level 9.0 MG/DL Magnesium Level 1.8 MG/DL Total Bilirubin 0.7 MG/DL Aspartate Amino Transf 24 U/L (AST/SGOT) Alanine Aminotransferase 32 U/L (ALT/SGPT) Alkaline Phosphatase 74 U/L Total Creatine Kinase 87 U/L Troponin I LESS THAN 0.02 NG/ML Total Protein 6.9 GM/DL Albumin 4.2 GM/DL Lactic Acid Level 1.1 mmol/L [facility] Medical Record Reviewed: Yes Supervised Visit with JOSE: Yes Interpretation(s) Last Impressions Head CT 06/28/162121 Signed Impressions: Service Date/Time: Tuesday, June 28, 2016 21:52 - CONCLUSION: No acute intracranial abnormality. Severe pansinusitis. Howie Lopez MD Chest X-Ray 06/28/162121 Signed Impressions: Service Date/Time: Tuesday, June 28, 2016 22:01 - CONCLUSION: No evidence of acute cardiopulmonary disease. Howie Lopez MD CBC & BMP Diagram 06/28/16 22:24 Vital Signs Date Time Temp Pulse Resp B/P Pulse Ox O2 Delivery O2 Flow Rate FiO2 06/28/16 22:38 18 98 Room Air 06/28/16 18:25 98.3 77 18 171/88 98 Lactic acid 1.1, not elevated; sedimentation rate 7, not elevated Troponin I less than 0.02, not elevated; CK 87, not elevated EKG sinus rhythm rate 70 QS septally with poor oral wave progression anteriorly for age- indeterminate infarct Differential Diagnosis accepted in transfer of care from [facility] Narrative Course accepted in transfer of care from [facility] for follow-up of pending labs and patient disposition Patient feels comfortable after one-time dose of antibiotic for abnormal urinalysis patient identified to have pansinusitis by CT and chest x-ray reveals no infiltrate patient states real concern is that she's never had her heart evaluated and because of chest pain is concerned about her heart presently not having chest pain but had chest pain upon arrival to the emergency department. Patient administered aspirin. Allergies not having chest pain at this time will defer nitroglycerin for chest pain management. Patient's case discussed in detail with on-call [facility] physician knows the patient well and states she would be a candidate for chest pain center. Physician Communication Physician Communication discussed with Dr Perdue Diagnosis Primary Impression: Chest pain Additional Impressions: Chronic headaches Chronic pansinusitis Admitting Information Admitting Physician Requests: Observation Beverly Naranjo MD Jun 28, 2016 23:43
[2016-06-28] MEDS ORDERED: ASPIRIN 81 MG CHEW TAB CHEW ONE (23:45)
[2016-06-29] VITALS (10 sets, daily range): BP systolic 118–161; BP diastolic 71–83; PULSE 63–83; RESP 18–19; TEMP 96.5–98.7; O2SAT 92–100
[2016-06-29] MEDS ORDERED: SODIUM CHLORIDE 0.9% FLUSH 5 ML FLUSH IVF PRN ×2 (01:00)
[2016-06-29 03:31] LABS: CREATINE KINASE 83 U/L (26-192)
[2016-06-29 04:44] LABS: CREATINE KINASE 102 U/L (26-192)
[2016-06-29 04:59] LABS: CKMB LESS THAN 0.5 NG/ML (0.5-3.6)
[2016-06-29] MEDS ORDERED: POTASSIUM CHLORIDE 20 MEQ CONTROLLED RELEASE TAB PO ONE (08:30)
[2016-06-29] MEDS ORDERED: FUROSEMIDE 40 MG TAB PO SCH (09:00)
[2016-06-29] MEDS ORDERED: NON-FORMULARY DRUG (Vitamins C & E (Cranberry Urinary Comfort) 1 CAP) PO SCH (09:00)
[2016-06-29] MEDS ORDERED: SODIUM CHLORIDE 0.9% FLUSH 5 ML FLUSH IVF SCH ×2 (09:00)
[2016-06-29] MEDS ORDERED: HYDROmorphone HCL 4 MG TAB PO PRN (09:00)
[2016-06-29] MEDS ORDERED: LISINOPRIL 20 MG TAB PO SCH (09:00)
--- NOTE | 2016-06-29 09:28 | HHI.HP ---
[facility] Primary Care Physician John Bloom Jr, MD Chief Complaint Headache, palpitations, chest discomfort for 5 days History of Present Illness 60-year-old patient with lupus, RA, hypertension, and MS presents to the emergency room for further evaluation of headache, palpitations, and chest discomfort for the past 5 days. Chest discomfort is located in substernal area. Characteristic of a sharp quick pain. Duration seconds. No radiation of pain. No known precipitating or relieving factors. And no associated symptoms. Severity is "noticeable." Endorses she recently was treated for bronchitis and completed antibiotics one week ago. She continues to cough and has sputum production. Complaining of right sided face, ear, and jaw pain constant for 5 days. In regards to her palpitations, she is unable to remember how frequently she experiences palpitations or the duration of palpitations. Review of Systems General: Treated for bronchitis 2 weeks ago. Completed antibiotics one week ago. No fatigue,weakness, fever, chills, or change in appetite HEENT: Right ear, jaw, face painful. Right sided pain causes her to have a headache. Constant however wax and wane in severity the past 5 days. No vision changes. Nasal congestion with drainage for the past 2 weeks, antibiotics did not help with nasal congestion or drainage. Feels as though she is still "sick." CV: Chest pain as stated above. No current CP or pressure. Intermittent palpitations 5 days. No precipitating factors with palpitations, notices more ongoing to sleep. Unable to remember how many episodes of palpitations she has daily. No dizziness RESP: Intermittent SOB 3 weeks. Shortness of breath is not exertional. Continues to have a productive cough. Sick, white sputum. No wheeze or hemoptysis GI: No nausea, vomiting, bowel changes, diarrhea, constipation, pain, distention , melena, blood in the stool. : Suprapubic catheter, follows with urologist, changed monthly. Frequent UTIs. No change in color, odor, or clarity. EXT: Chronic dependent lower leg edema. Chronic bilateral numbness and tingling lower extremities. MS: Wheelchair-bound. Has movement of lower extremities. No discomfort or change in ROM. Is living at home currently, last month she [facility]. NEURO: No change in memory or LOC PSYCH: No anxiety or depression SKIN: No rashes, no concerning lesions Past Family Social History Allergies: Coded Allergies: Adhesives (Verified Allergy, Severe, Rash, 06/28/16) Albuterol (Verified Allergy, Severe, SORES, 06/28/16) Codeine (Verified Allergy, Severe, SWELLING AND DIFFICULTY BREATHING, 06/28) Dynacirc (Verified Allergy, Severe, ELEVATED HEART RATE, 06/28/16) Lortab (Verified Allergy, Severe, RASH AND SWELLING, 06/28/16) Percocet (Verified Allergy, Severe, ITCHING, 06/28/16) Solu-Medrol (Verified Allergy, Severe, Shortness of Breath, 06/28/16) *MDRO Multi-Drug Resistant Organism (Verified Adverse Reaction, Unknown, ) 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 Past Medical History Lupus, RA, hypertension, MS, bipolar, and frequent UTIs Past Surgical History Partial hysterectomy, cholecystectomy, right leg surgery Reported Medications Reported Meds & Active Scripts Active Dilaudid (Hydromorphone HCl) 4 Mg Tab 4 Mg PO Q8H PRN Neurontin (Gabapentin) 300 Mg Cap 300 Mg PO DAILY@1300 Neurontin (Gabapentin) 300 Mg Cap 600 Mg PO BID Reported Cranberry Urinary Comfort (Vitamins C & E) 1 Cap 1 Cap PO DAILY Vitamin C (Ascorbic Acid) 500 Mg Chew 500 Mg CHEW DAILY Lisinopril 20 Mg Tab 20 Mg PO DAILY Toviaz ER (Fesoterodine Fumarate) 8 Mg Lou 8 Mg PO DAILY Nifedipine 10 Mg Cap 30 Mg PO HS Aubagio (Teriflunomide) 14 Mg Tab 14 Mg PO DAILY Furosemide 40 Mg Tab 40 Mg PO DAILY Protonix (Pantoprazole Sodium) 20 Mg Tab 20 Mg PO DAILY Procardia XL (Nifedipine) 60 Mg Tab 60 Mg PO DAILY Plaquenil (Hydroxychloroquine Sulfate) 200 Mg Tab 200 Mg PO BID Take with food Potassium Chloride ER (Potassium Chloride) 20 Meq Tab 20 Meq PO DAILY Catapres (Clonidine) 0.2 Mg Tab 0.2 Mg PO TID Aspirin 325 Mg Tab 325 Mg PO DAILY Vitamin B-12 (Cyanocobalamin) 100 Mcg Tab 100 Mcg PO DAILY D 09919 (Cholecalciferol) 10,000 Unit Cap 1 Cap PO DAILY Vitamin B Complex (B-Complex Vitamins) 1 Tab 1 Tab PO DAILY Active Ordered Medications Current Medications Medications (Trade) Dose Ordered Sig/Sury Route Start Time Stop Time Status Last Admin (Nitrostat Sl) 0.4 mg Q5M PRN SL 06/29/16 10:00 (Catapres) 0.2 mg TID PO 06/29/16 10:00 (Vitamin B12) 100 mcg DAILY PO 06/29/16 10:00 (Lasix) 40 mg DAILY PO 06/29/16 09:00 (Neurontin) 300 mg DAILY@1300 PO 06/29/16 13:00 (Neurontin) 600 mg BID PO 06/29/16 10:00 (Plaquenil) 200 mg BID PO 06/29/16 10:00 (Prinivil) 20 mg DAILY PO 06/29/16 09:00 (Procardia) 30 mg HS PO 06/29/16 21:00 (Procardia Xl) 60 mg DAILY PO 06/29/16 10:00 (Protonix) 20 mg DAILY PO 06/29/16 10:00 (KCl) 20 meq DAILY PO 06/29/16 10:00 (Vitamin C) 500 mg DAILY PO 06/29/16 10:00 Non-Formulary Medication 1 tab DAILY PO 06/29/16 09:00 UNV Non-Formulary Medication 1 cap DAILY PO 06/29/16 09:00 UNV Non-Formulary Medication 8 mg DAILY PO 06/29/16 09:00 UNV Non-Formulary Medication 14 mg DAILY PO 06/29/16 09:00 UNV Non-Formulary Medication 1 cap DAILY PO 06/29/16 09:00 UNV (Dilaudid) 4 mg Q8H PRN PO 06/29/16 09:00 Family History Noncontributory for early onset cardiovascular disease Social History , lives at home, is wheelchair-bound. Lifelong nonsmoker. Denies any alcohol or illegal drug use. Past cardiac testing No recent stress testing. 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 However due to uncontrolled hypertension she has a pending referral for cardiology with an appointment September 04, 2016. Endorses previous cardiac catheterization "years ago" was unremarkable. Holter monitor pastunremarkable Physical Exam Vital Signs Vital Signs Date Time Temp Pulse Resp B/P Pulse Ox O2 Delivery O2 Flow Rate FiO2 06/29/16 08:49 97.6 75 18 149/82 94 06/29/16 04:39 65 06/29/16 04:05 98.7 63 18 143/71 97 06/29/16 01:46 75 18 161/72 95 06/28/16 22:38 18 98 Room Air 06/28/16 22:00 85 18 167/75 97 06/28/16 20:00 88 18 165/71 97 06/28/16 18:25 98.3 77 18 171/88 98 Physical Exam GENERAL: Alert WN, WD, NAD, pleasant, obese female HEAD: NC, AT EYES: Sclera clear, conjunctiva without injection, pupils equal and round ENT: Mucous membranes pink and moist NECK: Supple, no masses, trachea midline CV: RRR, without murmur, rub, gallop, no JVD, S1-S2 no S3-S4. RESP: Clear lungs throughout bilateral, no crackles, wheeze, rhonchi, symmetrical chest rise, nonlabored, able to speak in full sentences ABD: Soft, obese, NT, ND, no masses, positive bowel tones. : Suprapubic catheter intact. BACK: No CVAT EXT: Pulses +24, dependent +1 edema lower extremities MS: Normal tone 4 extremities, nontender, no obvious deformities, decreased bilateral lower extremity movement NEURO: CN II through CN XII grossly intact, motor strength 4/5 lower extremities upper extremities 5/5 PSYCH: A+O 3, pleasant affect, appropriate speech, appropriate mood and affect , insight and judgment SKIN: Normal turgor, normal texture, no lesions, no rashes Laboratory Laboratory Tests Test 06/28/16 06/28/16 06/28/16 06/29/16 21:45 22:24 22:30 01:30 Urine Color YELLOW Urine Turbidity HAZY Urine pH 5.5 Urine Specific [place] 1.020 Urine Protein 30 Urine Glucose (UA) NEG Urine Ketones NEG Urine Occult Blood TRACE Urine Nitrite NEG Urine Bilirubin NEG Urine Urobilinogen 2.0 Urine Leukocyte Esterase LARGE Urine RBC 12 Urine WBC 45 Urine WBC Clumps MANY Urine Squamous Epithelial 3 Cells Urine Bacteria OCC Urine Hyaline Casts 40 Urine Mucus FEW Microscopic Urinalysis Comment CATH-CULTURE IND White Blood Count 7.6 Red Blood Count 4.25 Hemoglobin 11.9 Hematocrit 35.3 Mean Corpuscular Volume 83.2 Mean Corpuscular Hemoglobin 27.9 Mean Corpuscular Hemoglobin 33.6 Concent Red Cell Distribution Width 15.1 Platelet Count 252 Mean Platelet Volume 8.2 Neutrophils (%) (Auto) 54.1 Lymphocytes (%) (Auto) 24.4 Monocytes (%) (Auto) 7.6 Eosinophils (%) (Auto) 12.9 Basophils (%) (Auto) 1.0 Neutrophils # (Auto) 4.1 Lymphocytes # (Auto) 1.9 Monocytes # (Auto) 0.6 Eosinophils # (Auto) 1.0 Basophils # (Auto) 0.1 CBC Comment DIFF FINAL Differential Comment Erythrocyte Sedimentation Rate 7 Prothrombin Time 10.2 Prothromb Time International 0.9 Ratio Activated Partial 25.7 Thromboplast Time Sodium Level 145 Potassium Level 3.3 Chloride Level 107 Carbon Dioxide Level 31.0 Anion Gap 7 Blood Urea Nitrogen 13 Creatinine 1.01 Estimat Glomerular Filtration 68 Rate Random Glucose 123 Calcium Level 9.0 Magnesium Level 1.8 Total Bilirubin 0.7 Aspartate Amino Transf 24 (AST/SGOT) Alanine Aminotransferase 32 (ALT/SGPT) Alkaline Phosphatase 74 Total Creatine Kinase 87 83 Troponin I LESS THAN 0.02 LESS THAN 0.02 Total Protein 6.9 Albumin 4.2 Lactic Acid Level 1.1 Test 06/29/16 03:37 Total Creatine Kinase 102 Creatine Kinase MB LESS THAN 0.5 Troponin I LESS THAN 0.02 Date/Time Procedure Status Source Growth 06/28/16 22:28 Aerobic Blood Culture Received Blood Peripheral Pending 06/28/16 22:28 Anaerobic Blood Culture Received Blood Peripheral Pending 06/28/16 21:45 Urine Culture Received Urine Clean Catch Pending 06/28/16 21:45 Influenza Types A,B Antigen (ALEJANDRINA) - Final Complete Nasal Washing NEGATIVE FOR FLU A AND B ANTIGEN.... Result Diagram: 06/28/16222306/28/162223 Imaging Last Impressions Head CT 06/28/162121 Signed Impressions: Service Date/Time: Tuesday, June 28, 2016 21:52 - CONCLUSION: No acute intracranial abnormality. Severe pansinusitis. Howie Lopez MD Chest X-Ray 06/28/162121 Signed Impressions: Service Date/Time: Tuesday, June 28, 2016 22:01 - CONCLUSION: No evidence of acute cardiopulmonary disease. Howie Lopez MD Course EKGs 3 EKGs show normal sinus rhythm, nonspecific ST changes, possible anterior ME age undetermined Assessment and Plan Assessment and Plan #1 Chest painadmitted to chest pain center. Was ruled out with 3 sets of EKGs , cardiac enzymes, and monitored throughout evening. Will be seen and evaluated by Dr. Alex Sandoval. Discussed with patient the likelihood the next step would be a to complete a chemical stress test. She is agreeable to this plan of care. #2 Hypertensionwe'll continue to monitor. Reorder her BP home medications. Keep follow-up appointment with specialist for BP management. #3 Acute bronchitisCipro 500 mg twice a day 7 days, follow with primary care provider next week #4 UTIZosyn 1 IV dose provided by GENNA Tong, Cipro 500 mg twice a day 7 days, follow with primary care provider #5 Pansinusitis-Cipro 500 mg twice a day 7 days, follow with primary care provider Loreto Elliott Jun 29, 2016 09:28
[2016-06-29] MEDS: cloNIDine HCL 0.2 MG TAB PO SCH ×3 (09:33→17:39)
[2016-06-29] MEDS ORDERED: VITAMIN B COMPLEX/VIT C TAB PO SCH (10:00)
[2016-06-29] MEDS ORDERED: HYDROXYCHLOROQUINE SULFATE 200 MG TAB PO SCH (10:00)
[2016-06-29] MEDS ORDERED: NITROGLYCERIN 0.4 MG SL 25 TABS/BTL SL PRN (10:00)
[2016-06-29] MEDS ORDERED: GABAPENTIN 300 MG CAP PO SCH ×2 (10:00→13:00)
[2016-06-29] MEDS ORDERED: CYANOCOBALAMIN 100 MCG TAB PO SCH (10:00)
[2016-06-29] MEDS ORDERED: TOLTERODINE TARTRATE 4 MG CAP LA PO SCH (10:00)
[2016-06-29] MEDS ORDERED: POTASSIUM CHLORIDE 20 MEQ CONTROLLED RELEASE TAB PO SCH (10:00)
[2016-06-29] MEDS ORDERED: ASCORBIC ACID 500 MG TAB PO SCH (10:00)
[2016-06-29] MEDS ORDERED: TERIFLUNOMIDE 14 MG PO SCH (10:00)
[2016-06-29] MEDS ORDERED: NIFEdipine 60 MG SUSTAINED RELEASE TAB PO SCH (10:00)
[2016-06-29] MEDS ORDERED: PANTOPRAZOLE SOD 20 MG DELAYED RELEASE TAB PO SCH (10:00)
[2016-06-29] MEDS ORDERED: CHOLECALCIFEROL (VIT D3) 5000 UNIT CAP PO SCH (10:00)
[2016-06-29] MEDS ORDERED: REGADENOSON INJ 0.4 MG/5 ML SYR ONE (10:44)
--- NOTE | 2016-06-29 11:52 | EKG ---
Date Performed: 06/29/2016 Time Performed: 04:36:40 PTAGE: 60 years EKG: Sinus rhythm WITH SINUS ARRHYTHMIA Right axis deviation Nonspecific ST changes ATYPICAL ECG PREVIOUS TRACING : 06/29/2016 01.36 Compared to previous tracing ,axis now rightward. DOCTOR: Alex Sandoval Interpretating Date/Time 06/29/2016 11:50:50
--- NOTE | 2016-06-29 11:53 | EKG ---
Date Performed: 06/29/2016 Time Performed: 01:36:05 PTAGE: 60 years EKG: Sinus rhythm LOW QRS VOLTAGE IN PRECORDIAL LEADS Poor R wave progression PREVIOUS TRACING : 06/28/2016 22.26 Since previous tracing, no significant change noted DOCTOR: Alex Sandoval Interpretating Date/Time 06/29/2016 11:53:03
--- NOTE | 2016-06-29 11:53 | EKG ---
Date Performed: 06/28/2016 Time Performed: 22:26:36 PTAGE: 60 years EKG: Sinus rhythm LOW QRS VOLTAGE IN PRECORDIAL LEADS Poor R wave progression ABNORMAL ECG PREVIOUS TRACING : 05/18/2016 10.05 Since previous tracing, no significant change noted DOCTOR: Alex Sandoval Interpretating Date/Time 07/09/2016 07:37:15
--- NOTE | 2016-06-29 12:52 | RADRPT ---
EXAM DATE/TIME: 06/29/2016 10:18 [facility] COMPARISON: No previous studies available for comparison. INDICATIONS : Substernal chest pain with palpitations. Angina. DOSE: 35 mCi Tc99m Myoview at stress. 11 mCi Tc99m Myoview at rest. 0.4 mg Lexiscan STRESS SYMPTOMS: Headache and heart racing. EJECTION FRACTION: 69% MEDICAL HISTORY : Multple sclerosis. Rheumatoid arthritis. Lupus. Hypertension. SURGICAL HISTORY : Tubal ligation. Cholecystectomy. Hysterectomy. ENCOUNTER: Initial ACUITY: 1 week PAIN SCALE: 6/10 LOCATION: Substernal chest TECHNIQUE: The patient underwent pharmacologic stress with infusion of prescribed dose. Continuous ECG tracing was monitored during stress. Gated SPECT imaging was performed after stress and conventional SPECT i maging was performed at rest. The examination was performed on a SPECT/CT scanner, both attenuation and non-corrected datasets were reviewed. FINDINGS: DISTRIBUTION: The maximum perfused segment at stress is in the anterior wall. PERFUSION STUDY: The pattern of perfusion at stress is within normal limits. GATED STUDY: There is intact wall motion and thickening without hypokinetic or dyskinetic segments. CONCLUSION: No reversible perfusion defects. No focal wall motion abnormalities. Ejection fraction within normal limits. RISK CATEGORY: 1- Low Risk. Shady Cisneros MD on June 29, 2016 at 12:49 Board Certified Radiologist. This report was verified electronically.
[2016-06-29] MEDS ORDERED: CIPR-9 PO (13:45)
[2016-06-29] MEDS ORDERED: IPRA17I INH (13:45)
--- NOTE | 2016-06-29 13:46 | HHI.DCPOC ---
Discharge Care Plan Diagnosis: (1) Chest pain, atypical (2) Acute bronchitis Goals to Promote Your Health * To prevent worsening of your condition and complications * To maintain your health at the optimal level Directions to Meet Your Goals Take your medications as prescribed Follow your dietary instruction Follow activity as directed Keep your appointments as scheduled Take your immunizations and boosters as scheduled If your symptoms worsen call your PCP, if no PCP go to Urgent Care Center or Emergency Room Smoking is Dangerous to Your Health. Avoid second hand smoke Call the 24-hour hour crisis hotline for domestic abuse at Loreto Elliott Jun 29, 2016 13:46
[2016-06-29] MEDS ORDERED: RESP: IPRATROPIUM 0.5 MG/2.5 ML NEB NEB ONE (14:00)
[2016-06-29] MEDS ORDERED: RESP: IPRATROPIUM 0.5 MG/2.5 ML NEB NEB SCH (16:00)
[2016-06-29] MEDS ORDERED: IPRA0.02 NEB (17:21)
[2016-06-29] MEDS ORDERED: RESP: IPRATROPIUM 0.5 MG/2.5 ML NEB NEB PRN (18:00)
[2016-06-29] MEDS ORDERED: NIFEdipine 10 MG CAP PO SCH (21:00)
--- NOTE | 2016-06-30 15:34 | TR ---
Date Performed: 06/29/2016 Time Performed: 10:55:38 DOCTOR: Alex Sandoval DRUG LIST: CLINICAL HISTORY: CHEST PAIN REASON FOR TEST: CHEST PAIN REASON FOR ENDING: OBSERVATION: CONCLUSION: Lexiscan stress test was performed under standard four minute protocol. [place]ion[place] e was injected one minute prior to ending the test. No electrocardiographic abormalities were present to suggest ischemia. Nuclear imaging and interpretation are pending. COMMENTS:
[2016-08-27] MEDS ORDERED: METH-715 PO (17:08)
== END 2016-06-29 18:35 | disposition home or self-care (01) ==
LOC: NEPC 18:22 → NEDA 06-29 00:58 → NEPHCDU 06-29 03:20
PROVIDERS: ADMIT Internal Medicine Interventional Cardiology; ATTEND Internal Medicine Interventional Cardiology
DX: R07.9 Chest pain, unspecified (principal); J32.4 Chronic pansinusitis; R06.02 Shortness of breath; G43.909 Migraine, unspecified, not intractable, without status migrainosus; M48.00 Spinal stenosis, site unspecified; M06.9 Rheumatoid arthritis, unspecified; I10 Essential (primary) hypertension; G35 Multiple sclerosis; R00.2 Palpitations; Z79.82 Long term (current) use of aspirin; F31.9 Bipolar disorder, unspecified; R00.0 Tachycardia, unspecified; M79.7 Fibromyalgia; Z79.899 Other long term (current) drug therapy; J20.9 Acute bronchitis, unspecified; Z99.3 Dependence on wheelchair; N39.0 Urinary tract infection, site not specified; I49.8 Other specified cardiac arrhythmias; B95.2 Enterococcus as the cause of diseases classified elsewhere; B95.62 Methicillin resistant Staphylococcus aureus infection as the cause of diseases classified elsewhere
CPT/HCPCS: 70450; 71010; 78452; 80053; 81001; 82550; 82552; 83605; 83735; 84484; 85025; 85610; 85652; 85730; 86403; 87040; 87077; 87086; 87186; 87804; 93005; 93017; 94640; 94664; 96365; 96375; 99285; A9502; G0378; J1170; J2405; J2543; J2785; J7644

== ENCOUNTER 2016-09-11 10:19 | Inpatient (IN) | payer MEDICARE ==
[~2016-09-11] VITALS: Ht 168.9 cm; Wt 65.2 kg
[2016-09-11] VITALS (7 sets, daily range): BP systolic 116–149; BP diastolic 66–85; PULSE 57–68; RESP 16–20; TEMP 97.8–98.3; O2SAT 95–99
[~2016-09-11 10:19] MED LIST changes: -BACL10TA PO; -COZA100T PO; +CRANCAP2 PO; -FLOR250C PO; +IPRA0.02 NEB; +LISI-515 PO; +METH-715 PO; +VITA500C9 CHEW
[2016-09-11] MEDS ORDERED: SODIUM CHLORIDE 0.9% FLUSH 10 ML FLUSH IV FLUSH PRN ×2 (11:15→14:15)
[2016-09-11] MEDS ORDERED: ONDANSETRON HCL 4 MG/2 ML VIAL IV PUSH ONE (11:15)
--- NOTE | 2016-09-11 11:15 | PD ---
HPI Chief Complaint: GI Complaint Time Seen by Provider: 10:47 Travel History International Travel<30 days: No Contact w/Intl Traveler<30days: No Traveled to known affect area: No History of Present Illness HPI 61yo F with PMH of multiple sclerosis (last plasmaparesis 5 weeks ago, follows with Dr. Suggs), lupus, fibromyalgia, HTN presents to the ED with multiple complaints. Pt states she has been having bilateral upper extremity weakness for 1 week that is new. Pt always have bilateral lower ext weakness and uses a wheelchair. States she checked her bp today and it was elevated and normally she has headache and nausea with elevated blood pressure so she took her meds. Pt's bp is normal here and headache has improved. Pt also complaint of mild chest pain but that has resolved as well. Pt have abdominal pain on exam but not when I dont press on it. Overall, pt feels very weak and not able to get out of bed. PFSH Past Medical History Hx Anticoagulant Therapy: Yes (ASA ) Arthritis: Yes Asthma: No Autoimmune Disease: Yes (LUPUS, MS, RA AND SPINAL STENOSIS) Blood Disorders: No Bipolar Disorder: Yes Anxiety: Yes Depression: No Heart Rhythm Problems: No Cancer: No Cardiac Catheterization: No Cardiovascular Problems: Yes High Cholesterol: Yes Chemotherapy: No Chest Pain: Yes Congestive Heart Failure: No COPD: No Cerebrovascular Accident: No Diabetes: No Diminished Hearing: No Endocrine: No Fibromyalgia: Yes GERD: No Genitourinary: Yes (uti, suprapubic catheter) Headaches: Yes Hepatitis: No Hiatal Hernia: No Hypertension: Yes Immune Disorder: Yes (lupus, ra, fibromyalgia) Implanted Vascular Access Dvce: Yes Kidney Stones: No Medical other: Yes (HX MENINGITIS, LUPUS, FIBROMYALGIA) Musculoskeletal: Yes (left leg weakness) Neurologic: No Psychiatric: Yes Reproductive: Yes (partial hysterectomy ) Respiratory: No Immunizations Current: Yes Migraines: Yes Radiation Therapy: No Renal Failure: No Seizures: No Sickle Cell Disease: No Sleep Apnea: No Thyroid Disease: No Ulcer: No Tetanus Vaccination: < 5 Years Influenza Vaccination: No PNEUMOCCOCAL Vaccine (Year): 2 Menopausal: Yes : 3 Para: 2 Miscarriage: 1 Ovarian Cysts: Yes Tubal Ligation: Yes Past Surgical History Abdominal Surgery: No AICD: No Appendectomy: No Arteriovenous Shunt: No Body Medical Devices: screws in right leg Cardiac Surgery: No Cholecystectomy: Yes Coronary Artery Bypass Graft: No Ear Surgery: No Endocrine Surgery: No Eye Surgery: No Genitourinary Surgery: No Gynecologic Surgery: Yes Hysterectomy: Yes (PARTIAL) Insulin Pump: No Joint Replacement: No Neurologic Surgery: Yes ( C 2-3 AND 5-6 FUSION 2004) Oral Surgery: No Pacemaker: No Thoracic Surgery: No Other Surgery: Yes (cervical fusion, amina, partial hysterectomy) Family History Family Myocardial Infarction: Yes Social History Alcohol Use: No Tobacco Use: No (never) Substance Use: No Allergies-Medications (Allergen,Severity, Reaction): Coded Allergies: Adhesives (Verified Allergy, Severe, Rash, 09/11/16) Albuterol (Verified Allergy, Severe, SORES, 09/11/16) Codeine (Verified Allergy, Severe, SWELLING AND DIFFICULTY BREATHING, 09/11) Dynacirc (Verified Allergy, Severe, ELEVATED HEART RATE, 09/11/16) Lortab (Verified Allergy, Severe, RASH AND SWELLING, 09/11/16) Percocet (Verified Allergy, Severe, ITCHING, 09/11/16) Solu-Medrol (Verified Allergy, Severe, Shortness of Breath, 09/11/16) *MDRO Multi-Drug Resistant Organism (Verified Adverse Reaction, Unknown, ) 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 Reported Meds & Prescriptions Reported Meds & Active Scripts Active Ipratropium Neb (Ipratropium [place]) 0.5 Mg/2.5 Ml Amp 0.5 Mg NEB Q4HR NEB Dilaudid (Hydromorphone HCl) 4 Mg Tab 4 Mg PO Q8H PRN Neurontin (Gabapentin) 300 Mg Cap 300 Mg PO DAILY@1300 Neurontin (Gabapentin) 300 Mg Cap 600 Mg PO BID Reported Hiprex (Methenamine Hippurate) 1 Gm Tab 1 Gm PO BID Cranberry Urinary Comfort (Vitamins C & E) 1 Cap 1 Cap PO DAILY Vitamin C (Ascorbic Acid) 500 Mg Chew 500 Mg CHEW DAILY Lisinopril 20 Mg Tab 20 Mg PO DAILY Toviaz ER (Fesoterodine Fumarate) 8 Mg Lou 8 Mg PO DAILY Nifedipine 10 Mg Cap 30 Mg PO HS Aubagio (Teriflunomide) 14 Mg Tab 14 Mg PO DAILY Furosemide 40 Mg Tab 40 Mg PO DAILY Protonix (Pantoprazole Sodium) 20 Mg Tab 20 Mg PO DAILY Procardia XL (Nifedipine) 60 Mg Tab 60 Mg PO DAILY Plaquenil (Hydroxychloroquine Sulfate) 200 Mg Tab 200 Mg PO BID Take with food Potassium Chloride ER (Potassium Chloride) 20 Meq Tab 20 Meq PO DAILY Catapres (Clonidine) 0.2 Mg Tab 0.2 Mg PO TID Aspirin 325 Mg Tab 325 Mg PO DAILY Vitamin B-12 (Cyanocobalamin) 100 Mcg Tab 100 Mcg PO DAILY D 38198 (Cholecalciferol) 10,000 Unit Cap 1 Cap PO DAILY Vitamin B Complex (B-Complex Vitamins) 1 Tab 1 Tab PO DAILY Review of Systems Except as stated in HPI: all other systems reviewed are Neg Physical Exam Narrative GENERAL: 61yo F not in distress. SKIN: Focused skin assessment warm/dry. HEAD: Atraumatic. Normocephalic. EYES: Pupils equal and round. No scleral icterus. No injection or drainage. ENT: No nasal bleeding or discharge. Mucous membranes pink and moist. NECK: Trachea midline. No JVD. CARDIOVASCULAR: Regular rate and rhythm. No murmur appreciated. RESPIRATORY: No accessory muscle use. Clear to auscultation. Breath sounds equal bilaterally. GASTROINTESTINAL: Abdomen soft, +Epigastric ttp. No rebound tenderness or guarding. MUSCULOSKELETAL: No obvious deformities. No clubbing. No cyanosis. No edema. NEUROLOGICAL: Awake and alert. No obvious cranial nerve deficits. Decreased bilateral lower ext strength. Normal speech. PSYCHIATRIC: Appropriate mood and affect; insight and judgment normal. Data Data Last Documented VS Vital Signs Date Time Temp Pulse Resp B/P Pulse Ox O2 Delivery O2 Flow Rate FiO2 09/11/16 12:45 58 17 138/66 98 Room Air 09/11/16 10:28 97.9 Orders Vascular Access Team Consult/P PRN (09/11/16 10:55) Complete Blood Count With Diff (09/11/16 11:08) Comprehensive Metabolic Panel (09/11/16 11:08) Lipase (09/11/16 11:08) Prothrombin Time / Inr (Pt) (09/11/16 11:08) Act Partial Throm Time (Ptt) (09/11/16 11:08) Urinalysis - C+S If Indicated (09/11/16 11:08) Ct Abd/Pel W Iv Contrast(Rout) (09/11/16 11:08) Iv Access Insert/Monitor (09/11/16 11:08) Ecg Monitoring (09/11/16 11:08) Oximetry (09/11/16 11:08) Sodium Chloride 0.9% Flush (Ns Flush) (09/11/16 11:15) Electrocardiogram (09/11/16 11:08) Troponin I (09/11/16 11:08) Ckmb (Isoenzyme) Profile (09/11/16 11:08) Ondansetron Inj (Zofran Inj) (09/11/16 11:15) Vascular Poc Ultrasound (09/11/16 ) Urine Culture (09/11/16 11:11) Ceftriaxone Inj (Rocephin Inj) (09/11/16 13:00) Ceftriaxone Inj (Rocephin Inj) (09/11/16 13:15) Iohexol 350 Inj (Omnipaque 350 Inj) (09/11/16 13:55) Admit To Inpatient (09/11/16 ) Code Status (09/11/16 14:03) Vital Signs (Adult) Q4H (09/11/16 14:03) Activity Oob With Assistance (09/11/16 14:03) Diet Regular Basic (09/11/16 Dinner) Sodium Chloride 0.9% Flush (Ns Flush) (09/11/16 14:15) Sodium Chloride 0.9% Flush (Ns Flush) (09/11/16 21:00) Acetaminophen (Tylenol) (09/11/16 14:15) Ondansetron Inj (Zofran Inj) (09/11/16 18:00) Magnesium Hydroxide Liq (Milk Of Magnesi (09/11/16 21:00) Basic Metabolic Panel (Bmp) (09/12/16 06:00) Complete Blood Count With Diff (09/12/16 06:00) Chest, Single Ap (09/11/16 14:03) Electrocardiogram (09/11/16 14:03) Pt Request For Service (09/11/16 14:03) Scd Bilateral/Knee High PAKO.BID (09/11/16 14:03) Naloxone Inj (Narcan Inj) (09/11/16 14:15) Inpatient Certification (09/11/16 ) Admit Order (Ed Use Only) (09/11/16 14:04) Consult Neurology (09/11/16 ) Consult Neurology (09/11/16 ) Consult Hematology (09/11/16 ) Labs Laboratory Tests Test 09/11/16 09/11/16 11:11 12:00 Urine Color YELLOW Urine Turbidity HAZY Urine pH 6.0 Urine Specific [place] 1.015 Urine Protein TRACE mg/dL Urine Glucose (UA) NEG mg/dL Urine Ketones NEG mg/dL Urine Occult Blood SMALL Urine Nitrite POS Urine Bilirubin NEG Urine Urobilinogen LESS THAN 2.0 MG/DL Urine Leukocyte Esterase LARGE Urine RBC 21 /hpf Urine WBC 92 /hpf Urine Squamous Epithelial 1 /hpf Cells Urine Bacteria MANY /hpf Urine Hyaline Casts 20 /lpf Urine Mucus FEW /lpf Microscopic Urinalysis Comment CULTURE INDICATED White Blood Count 6.8 TH/MM3 Red Blood Count 4.24 MIL/MM3 Hemoglobin 11.4 GM/DL Hematocrit 35.9 % Mean Corpuscular Volume 84.6 FL Mean Corpuscular Hemoglobin 26.9 PG Mean Corpuscular Hemoglobin 31.8 % Concent Red Cell Distribution Width 15.1 % Platelet Count 290 TH/MM3 Mean Platelet Volume 8.3 FL Neutrophils (%) (Auto) 70.1 % Lymphocytes (%) (Auto) 14.2 % Monocytes (%) (Auto) 8.8 % Eosinophils (%) (Auto) 6.2 % Basophils (%) (Auto) 0.7 % Neutrophils # (Auto) 4.8 TH/MM3 Lymphocytes # (Auto) 1.0 TH/MM3 Monocytes # (Auto) 0.6 TH/MM3 Eosinophils # (Auto) 0.4 TH/MM3 Basophils # (Auto) 0.0 TH/MM3 CBC Comment DIFF FINAL Differential Comment Prothrombin Time 10.8 SEC Prothromb Time International 1.0 RATIO Ratio Activated Partial 27.2 SEC Thromboplast Time Sodium Level 141 MEQ/L Potassium Level 3.4 MEQ/L Chloride Level 103 MEQ/L Carbon Dioxide Level 29.3 MEQ/L Anion Gap 9 MEQ/L Blood Urea Nitrogen 14 MG/DL Creatinine 1.05 MG/DL Estimat Glomerular Filtration 65 ML/MIN Rate Random Glucose 155 MG/DL Calcium Level 9.4 MG/DL Total Bilirubin 0.4 MG/DL Aspartate Amino Transf 11 U/L (AST/SGOT) Alanine Aminotransferase 16 U/L (ALT/SGPT) Alkaline Phosphatase 84 U/L Total Creatine Kinase 47 U/L Troponin I LESS THAN 0.02 NG/ML Total Protein 7.6 GM/DL Albumin 3.3 GM/DL Lipase 84 U/L MDM Medical Decision Making Medical Screen Exam Complete: Yes Emergency Medical Condition: Yes Interpretation(s) EKG: Sinus bradycardia at 54bpm. Normal axis. No ST segment elevation or depression. TWI III, aVF. Differential Diagnosis Multiple sclerosis exacerbation vs. UTI vs. electrolyte abnormality vs. dehydration vs. pancreatitis vs. gastritis Narrative Course 61yo F with multiple complaints. Her main complaint is worsening weakness in her bilateral upper extremity for 1 week. States she has headache and nausea when her blood pressure is high and her blood pressure was high this morning so she took her bp meds. Pt's blood pressure is 133/73 here and her headache has already improved. Labs reviewed, no leukocytosis. K: 3.4. Troponin negative. UA showed positive nitrite. Large leukocyte. Pt given ceftriaxone 1gm. CTa/ p showed no acute inflammatory process. Discussed case with Dr. Suggs and since pt is so weak that she has not been out of bed for days and usually responds to plasmaphoresis, he recommends consulting Dr. Vazquez for inpatient plasmaphoresis. Also place a consult for his group. Discussed with [facility] hospitalist Dr. Man and accepted to his service. Caroline Guillaume DO September 11, 2016 11:15
[2016-09-11 11:53] LABS: BACTERIA, URINE MANY /hpf; BLOOD, URINE SMALL (NEG); COMMENT (UR) CULTURE INDICATED; CULTURE IF INDICATED CULTURE INDICATED; GLUCOSE,URINE NEG (NEG); HYALINE CAST, URINE 20 /lpf (RARE); KETONE, URINE NEG (NEG); MUCUS URINE FEW /lpf (OCC); NITRITE,URINE POS (NEG); SQUAMOUS EPITHELIAL CELL URINE 1 /hpf (0-5); URINE COLOR YELLOW (YELLW/STRAW)
[2016-09-11 12:34] LABS: AUTOMATED NEUTROPHIL # 4.8 TH/MM3 (1.8-7.7); BASOPHIL % 0.7 % (0.0-2.0); EOSINOPHIL # 0.4 TH/MM3 (0-0.4); EOSINOPHIL % 6.2 % (0.0-4.0); HEMATOCRIT 35.9 % (35.0-46.0); HEMO FLAGS DIFF FINAL; LYMPH % 14.2 % (9.0-44.0); MEAN CELL VOLUME 84.6 FL (80.0-100.0); MEAN CORPUSCULAR HEMOGLOBIN 26.9 PG (27.0-34.0); MEAN CORPUSCULAR HGB CONC 31.8 % (32.0-36.0); MONO % 8.8 % (0.0-8.0); NEUT % 70.1 % (16.0-70.0); PLATELET COUNT 290 TH/MM3 (150-450); RED BLOOD COUNT 4.24 MIL/MM3 (4.00-5.30); RED CELL DISTRIBUTION WIDTH 15.1 % (11.6-17.2); WHITE BLOOD COUNT 6.8 TH/MM3 (4.0-11.0)
[2016-09-11 12:39] LABS: APTT (PATIENT) 27.2 SEC (24.3-30.1); PROTHROMBIN TIME - PATIENT 10.8 SEC (9.8-11.6)
[2016-09-11 12:51] LABS: ANION GAP 9 MEQ/L (5-15); AST (GOT) 11 U/L (15-37); BICARBONATE 29.3 MEQ/L (21.0-32.0); BLOOD UREA NITROGEN 14 MG/DL (7-18); CHLORIDE 103 MEQ/L (98-107); GLOMERULAR FILTRATION RATE 65 ML/MIN (>89); POTASSIUM 3.4 MEQ/L (3.5-5.1); SODIUM (NA) 141 MEQ/L (136-145)
[2016-09-11 12:56] LABS: ALKALINE PHOSPHATASE 84 U/L (45-117); ALT (GPT) 16 U/L (10-53); TOTAL BILIRUBIN ADULT 0.4 MG/DL (0.2-1.0)
[2016-09-11] MEDS ORDERED: cefTRIAXone INJ 1,000 MG in SODIUM CHLORIDE 0.9% INJ 100 ML IV ONE ×2 (13:00→13:15)
[2016-09-11 13:13] LABS: CREATINE KINASE 47 U/L (26-192)
[2016-09-11] MEDS ORDERED: IOHEXOL 350 MG/ML 10 ML VIAL (for RAD DIAG) IV ONE (13:55)
[2016-09-11] MEDS ORDERED: NALOXONE HCL 0.4 MG/ML AMP IV PRN (14:15)
[2016-09-11] MEDS ORDERED: ACETAMINOPHEN 325 MG TAB PO PRN (14:15)
--- NOTE | 2016-09-11 14:19 | RADRPT ---
EXAM DATE/TIME: 09/11/2016 13:45 [facility] COMPARISON: No previous studies available for comparison. INDICATIONS : Abdomen pain with vomiting. IV CONTRAST: 95 cc Omnipaque 350 (iohexol) IV ORAL CONTRAST: No oral contrast ingested. RADIATION DOSE: 19.71 CTDIvol (mGy) MEDICAL HISTORY : Cardiovascular disease. Multiple sclerosis. Hypertension.Lupas, RA, Fibromyalgia, Spinal stenosis, Me nningitis SURGICAL HISTORY : Hysterectomy. Fusion, cervical.Cholecystectomy. ENCOUNTER: Initial ACUITY: 2 days PAIN SCALE: 2/10 LOCATION: Right lower quadrant TECHNIQUE: Volumetric scanning of the abdomen and pelvis was performed. Using automated exposure control and ad justment of the mA and/or kV according to patient size, radiation dose was kept as low as reasonably achievable to obtain optimal diagnostic quality images. FINDINGS: LOWER LUNGS: The visualized lower lungs are clear. LIVER: Homogeneous density without lesion. There is no dilation of the biliary tree. Cholecystectomy clips. SPLEEN: Normal size without lesion. PANCREAS: Within normal limits. KIDNEYS: Normal in size and shape. There is no mass, stone or hydronephrosis. ADRENAL GLANDS: Within normal limits. VASCULAR: There is no aortic aneurysm. BOWEL/MESENTERY: The stomach, small bowel, and colon demonstrate no acute abnormality. There is no free intraperitone al air or fluid. ABDOMINAL WALL: Within normal limits. RETROPERITONEUM: There is no lymphadenopathy. BLADDER: Mendoza catheter decompresses urinary bladder. REPRODUCTIVE: Within normal limits. INGUINAL: There is no lymphadenopathy or hernia. MUSCULOSKELETAL: Degenerative changes and scoliosis. CONCLUSION: 1. No acute inflammatory process. 2. Status post cholecystectomy. Sky Pereira MD on September 11, 2016 at 14:14 Board Certified Radiologist. This report was verified electronically.
[2016-09-11] MEDS: PANTOPRAZOLE SOD 20 MG DELAYED RELEASE TAB PO SCH (15:00)
--- NOTE | 2016-09-11 15:20 | RADRPT ---
EXAM DATE/TIME: 09/11/2016 14:23 [facility] COMPARISON: CHEST SINGLE AP, June 28, 2016, 22:01. INDICATIONS : Cough, vomiting. MEDICAL HISTORY : Cardiovascular disease. Multiple sclerosis. Hypertension. Lupas. RA. Fibromyalgia. Spinal stenosis. M enningitis. SURGICAL HISTORY : Infusaport. ENCOUNTER: Initial ACUITY: 1 day PAIN SCORE: 4/10 LOCATION: Chest FINDINGS: Dialysis catheter is in good position. The heart is minimally enlarged. Pulmonary vascularity is no rmal. There is no evidence of consolidation, pleural effusion or pneumothorax. CONCLUSION: 1. Dialysis catheter is in good position. 2. Compensated cardiomegaly. Fabien Sterling MD FACR on September 11, 2016 at 14:55 Board Certified Radiologist. This report was verified electronically.
--- NOTE | 2016-09-11 15:40 | HHI.HP ---
HPI Service [facility] Hospitalists Primary Care Physician John Bloom Jr, MD Admission Diagnosis Multiple sclerosis exacerbation, UTI Chief Complaint: Weakness Travel History International Travel<30 Days: No Contact w/Intl Traveler <30 Da: No Traveled to Known Affected Are: No History of Present Illness Mrs. Han is a pleasant 61 y/o AAF with multiple sclerosis undergoing weekly plasmapheresis, lupus, fibromyalgia, complicated UTIs and HTN presented to the ED at [facility] on 09/11/16 with multiple complaints. Pt states she has been having bilateral upper extremity weakness for the last week which is increased from her baseline weakness. SHe noted that she was dropping things, unable to write or hold a fork. Pt always has bilateral lower extremity weakness and uses a wheelchair. States she checked her BP this morning and it was elevated and normally she has headache and nausea with elevated blood pressure so she took her meds. Pt's BP was normalized in the ED and headache has improved. Pt also complains of mild chest pain but that has resolved as well. Pts lab work was fairly stable compared to previous labs. Her UA was abnormal and she has a suprapubic catheter which is typically exchanged monthly by her urologist. She has long hx of complicated UTI's and MDR infections. Pt was given Ceftriaxone 1gm IV in the ED. Her WBC count was normal and pt has been afebrile. CT abd/ pelvis showed no acute inflammatory process. The ED discussed the case with Dr. Suggs, the pts Neurologist, and since she is so weak that she has not been out of bed for days and usually responds to plasmapheresis, he recommended admission and consultation with Dr. Trevino for inpatient plasmapheresis and Neurology consultation. Review of Systems Constitutional: DENIES: Fever, Chills Eyes: DENIES: Vision loss Ears, nose, mouth, throat: DENIES: Vertigo Respiratory: DENIES: Sputum production, Shortness of breath Cardiovascular: DENIES: Chest pain, Palpitations Gastrointestinal: COMPLAINS OF: Abdominal pain, DENIES: Diarrhea, Nausea, Vomiting Musculoskeletal: DENIES: Back pain Integumentary: DENIES: Rash Neurologic: COMPLAINS OF: Headache, Localized weakness Other Generalized weakness Past Family Social History Past Medical History Multiple sclerosis diagnosed in late 2012 requiring plasmapheresis periodically. Most recent plasmapheresis was March 2016. Fibromyalgia Bipolar disorder History of obesity Hypertension Lupus Fibromyalgia Gastroparesis Recurrent UTIs Past Surgical History 2004 the patient had C3 through C6 anterior cervical discectomy and arthrodesis for severe cervical stenosis and myelopathy 2008 the patient had again the same diagnosis but had C6-C7 anterior cervical discectomy and arthrodesis 2010 the patient had open reduction, internal fixation of a right ankle fracture Right distal fibula fracture Torn lateral meniscus last year and underwent arthroscopic surgery Laparoscopic cholecystectomy Hysterectomy Suprapubic catheter placement PermCath placement Reported Medications Ipratropium Neb (Ipratropium [place]) 0.5 Mg/2.5 Ml Amp 0.5 Mg NEB Q4HR NEB Dilaudid (Hydromorphone HCl) 4 Mg Tab 4 Mg PO Q8H PRN Neurontin (Gabapentin) 300 Mg Cap 300 Mg PO DAILY@1300 Neurontin (Gabapentin) 300 Mg Cap 600 Mg PO BID Hiprex (Methenamine Hippurate) 1 Gm Tab 1 Gm PO BID Cranberry Urinary Comfort (Vitamins C & E) 1 Cap 1 Cap PO DAILY Vitamin C (Ascorbic Acid) 500 Mg Chew 500 Mg CHEW DAILY Lisinopril 20 Mg Tab 20 Mg PO DAILY Toviaz ER (Fesoterodine Fumarate) 8 Mg Lou 8 Mg PO DAILY Nifedipine 10 Mg Cap 30 Mg PO HS Aubagio (Teriflunomide) 14 Mg Tab 14 Mg PO DAILY Furosemide 40 Mg Tab 40 Mg PO DAILY Protonix (Pantoprazole Sodium) 20 Mg Tab 20 Mg PO DAILY Procardia XL (Nifedipine) 60 Mg Tab 60 Mg PO DAILY Plaquenil (Hydroxychloroquine Sulfate) 200 Mg Tab 200 Mg PO BID Take with food Potassium Chloride ER (Potassium Chloride) 20 Meq Tab 20 Meq PO DAILY Catapres (Clonidine) 0.2 Mg Tab 0.2 Mg PO TID Aspirin 325 Mg Tab 325 Mg PO DAILY Vitamin B-12 (Cyanocobalamin) 100 Mcg Tab 100 Mcg PO DAILY D 97089 (Cholecalciferol) 10,000 Unit Cap 1 Cap PO DAILY Vitamin B Complex (B-Complex Vitamins) 1 Tab 1 Tab PO DAILY Allergies: Coded Allergies: Adhesives (Verified Allergy, Severe, Rash, 09/11/16) Albuterol (Verified Allergy, Severe, SORES, 09/11/16) Codeine (Verified Allergy, Severe, SWELLING AND DIFFICULTY BREATHING, 09/11) Dynacirc (Verified Allergy, Severe, ELEVATED HEART RATE, 09/11/16) Lortab (Verified Allergy, Severe, RASH AND SWELLING, 09/11/16) Percocet (Verified Allergy, Severe, ITCHING, 09/11/16) Solu-Medrol (Verified Allergy, Severe, Shortness of Breath, 09/11/16) *MDRO Multi-Drug Resistant Organism (Verified Adverse Reaction, Unknown, ) 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 They have been together for over 30 years. She has 2 adult children one son who lives in [place] and a daughter who lives in [place] Never smoked tobacco. Does not drink alcohol. Denies illicit drugs. 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 Physical Exam Vital Signs Vital Signs Date Time Temp Pulse Resp B/P Pulse Ox O2 Delivery O2 Flow Rate FiO2 09/11/16 15:00 97.8 68 16 149/70 98 Room Air 09/11/16 12:45 58 17 138/66 98 Room Air 09/11/16 11:10 17 98 Room Air 09/11/16 10:40 17 09/11/16 10:28 97.9 57 17 133/73 98 Physical Exam GENERAL: This is a well-nourished, well-developed patient, in no apparent distress. HEENT: Atraumatic. Normocephalic. No temporal or scalp tenderness. No scleral icterus. Airway patent. NECK: Trachea midline, supple, nontender. CARDIO: Regular RESP: CTA bilaterally. No wheezes, rales, or rhonchi. ABD: +BS, soft, non-tender, nondistended. Suprapubic catheter in place EXT: Extremities without clubbing, cyanosis, or edema. Decreased strength in lower extremities causing her to be wheelchair/bed bound. NEURO: Awake and alert. Motor and sensory grossly within normal limits. Normal speech. Laboratory Laboratory Tests Test 09/11/16 09/11/16 11:11 12:00 Urine Color YELLOW Urine Turbidity HAZY Urine pH 6.0 Urine Specific [place] 1.015 Urine Protein TRACE Urine Glucose (UA) NEG Urine Ketones NEG Urine Occult Blood SMALL Urine Nitrite POS Urine Bilirubin NEG Urine Urobilinogen LESS THAN 2.0 Urine Leukocyte Esterase LARGE Urine RBC 21 Urine WBC 92 Urine Squamous Epithelial 1 Cells Urine Bacteria MANY Urine Hyaline Casts 20 Urine Mucus FEW Microscopic Urinalysis Comment CULTURE INDICATED White Blood Count 6.8 Red Blood Count 4.24 Hemoglobin 11.4 Hematocrit 35.9 Mean Corpuscular Volume 84.6 Mean Corpuscular Hemoglobin 26.9 Mean Corpuscular Hemoglobin 31.8 Concent Red Cell Distribution Width 15.1 Platelet Count 290 Mean Platelet Volume 8.3 Neutrophils (%) (Auto) 70.1 Lymphocytes (%) (Auto) 14.2 Monocytes (%) (Auto) 8.8 Eosinophils (%) (Auto) 6.2 Basophils (%) (Auto) 0.7 Neutrophils # (Auto) 4.8 Lymphocytes # (Auto) 1.0 Monocytes # (Auto) 0.6 Eosinophils # (Auto) 0.4 Basophils # (Auto) 0.0 CBC Comment DIFF FINAL Differential Comment Prothrombin Time 10.8 Prothromb Time International 1.0 Ratio Activated Partial 27.2 Thromboplast Time Sodium Level 141 Potassium Level 3.4 Chloride Level 103 Carbon Dioxide Level 29.3 Anion Gap 9 Blood Urea Nitrogen 14 Creatinine 1.05 Estimat Glomerular Filtration 65 Rate Random Glucose 155 Calcium Level 9.4 Total Bilirubin 0.4 Aspartate Amino Transf 11 (AST/SGOT) Alanine Aminotransferase 16 (ALT/SGPT) Alkaline Phosphatase 84 Total Creatine Kinase 47 Troponin I LESS THAN 0.02 Total Protein 7.6 Albumin 3.3 Lipase 84 Date/Time Procedure Status Source Growth 09/11/16 11:11 Urine Culture Received Urine Random Urine Pending Result Diagram: 09/11/16 1200 09/11/16 1200 Imaging Last Impressions Abdomen/Pelvis CT 09/11/16 1108 Signed Impressions: Service Date/Time: Sunday, September 11, 2016 13:45 - CONCLUSION: 1. No acute inflammatory process. 2. Status post cholecystectomy. Sky Pereira MD Septic Shock Reassessment Heart: Regular rate and rhythm Lungs: Clear Skin: Warm Assessment and Plan Problem List: (1) Generalized weakness Status: Acute Plan: - Pt admitted with increased generalized weakness over the last week, worsening UE/hand weakness and unable to get herself out of bed for the last few days. - She has progressive Multiple Sclerosis and has been intolerant of prior multiple sclerosis disease modifying agents - Pt has been receiving outpt plasmapheresis, more recently she had been getting plasmapheresis weekly. Her last session with Dr. Trevino was on 08/06. - Neurology would like to resume plasmapheresis for acute worsening of her weakness. - Oncology and Neurology consulted - Cont. Aubagio - Cont. Gabapentin - Monitor clinical status - Supportive care - DVT prophylaxis (2) Multiple sclerosis Status: Chronic Plan: - See above. (3) Pyuria Status: Chronic Plan: - Pt with chronic indwelling suprapubic catheter and hx of complicated UTIs and MDR organisms - Pts UA was abnormal. - Culture is pending. - Pt was given a dose of Rocephin in the ED. - She has not had any fever and a noted normal WBC count. - We will hold on abx at this time and await culture results. (4) Chronic indwelling Mendoza catheter Status: Chronic Plan: - See above. (5) Essential hypertension Status: Chronic Plan: - Home meds continued - Monitor (6) Lupus (systemic lupus erythematosus) Status: Chronic Plan: - Cont. Plaquenil (7) Fibromyalgia Status: Chronic Assessment and Plan Patient examined. Assessment and plan formulated [facility] Katherin Nava PA-C. I agree with the above. Pt presented to ER with increased weakness from baseline for last several days. Case discussed between ER attending and Dr. Suggs. Dr. Suggs requested admission for plasmapheresis. Physician Certification 2 Midnight Certification Type: Admission for Inpatient Services Order for Inpatient Services The services are ordered in accordance with Medicare regulations or non- Medicare payer requirements, as applicable. In the case of services not specified as inpatient-only, they are appropriately provided as inpatient services in accordance with the 2-midnight benchmark. Estimated LOS (days): 3 3 days is the estimated time the patient will need to remain in the hospital, assuming treatment plan goals are met and no additional complications. Post-Hospital Plan: Not yet determined Katherin Nava September 11, 2016 15:40 Jan Stevens DO September 11, 2016 20:14
[2016-09-11] MEDS: cloNIDine HCL 0.2 MG TAB PO SCH (17:57)
[2016-09-11] MEDS: NIFEdipine 10 MG CAP PO SCH (21:00)
[2016-09-11] MEDS ORDERED: MAGNESIUM HYDROXIDE SUSP 30 ML CUP PO PRN (21:00)
[2016-09-11] MEDS ORDERED: METHENAMINE HIPPURATE 1 GM PO SCH (21:00)
--- NOTE | 2016-09-11 21:30 | MB ---
cc: CHANTALE HENDRIX M.D. DATE OF CONSULTATION: 09/11/2016 REASON FOR CONSULTATION Multiple sclerosis. HISTORY OF PRESENT ILLNESS Ms. Angie Montez is a very nice 61-year-old woman who has well-documented multiple sclerosis. She takes Aubagio 14 mg daily. In the past she has responded well to plasmapheresis, her last treatment being about six weeks ago. Currently she notices progressive weakness for about two weeks now which has been getting progressively worse and she called the paramedics today to bring her to the hospital, because of this she is weak in her arms and legs. She was also found to have a urinary tract infection. PAST MEDICAL HISTORY 1. History of multiple sclerosis. 2. History of suprapubic catheter in place. 3. Frequent urinary tract infections. 4. Obesity. 5. Bipolar disorder. 6. Fibromyalgia. 7. Lupus. 8. Gastroparesis. 9. Cervical discectomy from C3-C6 in 2004. 10. Repeat cervical discectomy C6-C7 in 2008. 11. Right ankle fracture. 12. Right distal tibia fracture. 13. Torn lateral meniscus. 14. Hysterectomy. MEDICATIONS AT HOME 1. Aubagio 14 mg daily. 2. Dilaudid 4 mg as needed for pain. 3. Neurontin 300 mg once a day; 600 mg b.i.d. 4. Hiprex 1 gram b.i.d. 5. Cranberry one capsule daily. 6. Vitamin C 500 mg daily. 7. Lisinopril 20 mg daily. 8. Toviaz ER 8 mg daily. 9. Nifedipine 10 mg h.s. 10. Furosemide 40 mg daily. 11. Protonix 20 mg daily. 12. Procardia XL 60 mg daily. 13. Plaquenil 200 mg b.i.d. 14. Aspirin. 15. Catapres. 16. Vitamin D. ALLERGIES ADHESIVES, ALBUTEROL, CODEINE, DYNACIRC, LORTAB, PERCOCET, SOLU-MEDROL, MDRO. NEUROLOGIC EXAMINATION VITAL SIGNS: Blood pressure 149/70, pulse 68, respiratory rate is 16, temperature is 97.8 degrees. Higher cortical functions normal. Cranial nerves are intact. The pupils are equal and reactive. There is no Tim Emely pupil. The extraocular movements are normal with no BLANK and no nystagmus. There is no facial asymmetry. On motor exam she is weak in the arms at 4/5 proximally and distally, legs are 2/5 proximal and distal. She has got some spasticity in the legs. Reflexes 1+ symmetric with bilateral Babinskis present. IMAGING She has had a CT scan of the abdomen and pelvis which is normal. LABORATORY DATA White count 6800, hemoglobin 11.4, hematocrit 35.9%, platelet count 290,000. PT 10.8, INR 1, APTT 27.2. Sodium is 141, potassium 3.4, chloride 103, CO2 29.3, BUN is 14, creatinine 1.05, GFR 65, glucose 155, AST 11, ALT 16. Urinalysis: The pH is 6, specific gravity 1.015, positive nitrites, large leukocyte esterase count, WBC 92, RBC 21. IMPRESSION 1. Multiple sclerosis exacerbation. 2. Urinary tract infection. RECOMMENDATIONS The patient has responded well in the past to plasmapheresis. We will consult with Dr. Trevino to consider plasmapheresis every other day for approximately three treatments possibly more if she does not respond. Continue the Aubagio for now. MD SHARMAINE Elliott/MANISH /5:03 PM /8:58 PM
[2016-09-11] MEDS: GABAPENTIN 300 MG CAP PO SCH (22:49)
[2016-09-11] MEDS: SODIUM CHLORIDE 0.9% FLUSH 10 ML FLUSH IV FLUSH SCH (22:49)
[2016-09-11] MEDS: HYDROXYCHLOROQUINE SULFATE 200 MG TAB PO SCH (22:49)
[2016-09-12 06:41] VITALS: BP 142/82; PULSE 66; RESP 18; TEMP 98.1; O2SAT 97
[2016-09-12 07:27] LABS: AUTOMATED NEUTROPHIL # 2.9 TH/MM3 (1.8-7.7); BASOPHIL # 0.1 TH/MM3 (0-0.2); BASOPHIL % 1.1 % (0.0-2.0); EOSINOPHIL # 0.4 TH/MM3 (0-0.4); EOSINOPHIL % 7.1 % (0.0-4.0); HEMATOCRIT 33.6 % (35.0-46.0); HEMO FLAGS DIFF FINAL; LYMPH % 30.5 % (9.0-44.0); LYMPHOCYTE # 1.8 TH/MM3 (1.0-4.8); MEAN CELL VOLUME 84.3 FL (80.0-100.0); MEAN CORPUSCULAR HGB CONC 32.1 % (32.0-36.0); MONO % 11.6 % (0.0-8.0); NEUT % 49.7 % (16.0-70.0); PLATELET COUNT 260 TH/MM3 (150-450); RED BLOOD COUNT 3.98 MIL/MM3 (4.00-5.30); RED CELL DISTRIBUTION WIDTH 14.6 % (11.6-17.2); WHITE BLOOD COUNT 5.9 TH/MM3 (4.0-11.0)
[2016-09-12 07:51] LABS: POTASSIUM 3.3 MEQ/L (3.5-5.1)
--- NOTE | 2016-09-12 08:08 | MB ---
cc: MELE STEVENS RUBY ANNE E. M.D. DATE OF CONSULTATION 09/11/2016 DATE OF [address] Donato Stevens CHIEF COMPLAINT Dr. Stevens requested consultation for Mrs. Montez regarding hematology support for plasmapheresis. HISTORY OF PRESENT ILLNESS Mrs. Montez is a 61-year-old woman well-known patient of Dr. Suggs with a long history of multiple sclerosis. She is on Aubagio 14 mg daily coordinated by Dr. Suggs. She is also receiving plasmapheresis weekly to complement her therapy. Her last pheresis was about four weeks ago. Ms. Montez reports that she woke up with a headache and nausea. This typically occurs when her blood pressure is elevated. Her blood pressure was over 200 with diastolic over 100. 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 She had a great deal of palpitation and tachycardia. She took it for three days and stopped. She feels that her clonidine is no longer working for her. She took her clonidine on the day of the consultation and she just vomited. She was concerned about the symptoms and the extremely high blood pressure and called [facility] that brought her into the emergency room. By the time she was in the emergency room, she was noted to have a blood pressure of 138/66. Quite possibly her Clonidine had started to work. She was seen by Dr. Suggs who recommended complementing her treatment with pheresis. Hematology/Oncology is consulted to initiate plasmapheresis. Mrs. Montez as other medical problems including systemic lupus, fibromyalgia, recurrent urinary tract infection, anxiety chronic anemia, hypercholesterolemia, headaches. Her performance status has diminished over the past week with progressive weakness which she relates to the hypertension. She denies any problem associated with her Perma-Cath. She denies any urinary symptoms. She has had a cough, but nonproductive. She suspects she might have bronchitis. PAST MEDICAL HISTORY 1. Chronic MS 2. Systemic lupus 3. Depression 4. Anxiety 5. Hypertension 6. Fibromyalgia 7. Gastroparesis 8. Neurogenic bladder 9. Osteoarthritis 10. Recurrent urinary tract infection 11. Bronchitis PAST SURGICAL HISTORY 1. Pheresis catheter placement 2. Perma-Cath left chest wall 3. C-spine surgery 4. Right fibular fracture 5. Right ankle fracture 6. Right lateral meniscus tear repair 7. Laparoscopic cholecystectomy 8. Partial hysterectomy 9. Left oophorectomy 10. Suprapubic catheter placement FAMILY HISTORY No significant family history of MS. 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 She denies any tobacco, alcohol or illicit drug use. ALLERGIES TO MULTIPLE MEDICATIONS, ADHESIVES, ALBUTEROL, CODEINE, DYNACIRC, LORTAB, PERCOCET AND SOLU-MEDROL. CURRENT MEDICATIONS 1. Neurontin 2. Aspirin 3. Lasix 4. Prinivil 5. Procardia XL 6. Potassium chloride 7. Vitamin D complex 8. Vitamins C 9. Cholecalciferol 10. Detrol LA 11. Plaquenil 12. Procardia 13. Zofran p.r.n. 14. Catapres t.i.d. 15. Protonix PHYSICAL EXAMINATION Temperature 97.8 heart rate 64, respiratory rate 18, blood pressure 116/68, saturation 95%. GENERAL: Mrs. Montez is a well-developed, well-nourished heavy-set woman who looks tired. She appears weak. HEAD, EYES, EARS, NOSE, AND THROAT: Her pupils are round, reactive to light and accommodation. Oropharynx is clear. Speech is fluid. NECK: Supple. LUNGS: Clear. CARDIOVASCULAR: Exam reveals a mild bradycardia. ABDOMEN: Large and benign. EXTREMITIES: Lower extremity with chronic dorsiflexion. Pulses are palpable. Weakness of the lower extremity, slight weakness of the arms 4/5 bilaterally. LABORATORY DATA Significant for a normocytic anemia with hemoglobin 11.4, platelet count and white blood cell count are normal. BUN of 14, creatinine 1.05. Chest x-ray on admission compensated cardiomegaly, no infiltrates. ASSESSMENT/PLAN Mrs. Montez is a 61-year-old woman well-known patient with a long history of MS and other medical problems. She is well known to hematology for maintenance pheresis which she was receiving once weekly. She is admitted with complaints of significant hypertension associated with worsening weakness from her MS. She is continued on her MS medication by Dr. Suggs and plasmapheresis is requested. We reviewed the risks and benefits of plasmapheresis. We will coordinate through [facility] for her pheresis per protocol. We will start pheresis in the morning. Her Perma-Cath is in place. She has had no problems related to her central line. We will monitor her response to treatment. She has a mild anemia and no specific treatment is required at present. Defer to primary team for management of her urinary tract infection. She reports some bronchitic symptoms but chest x-ray is quite normal. We will monitor for fevers. Her questions were answered to her satisfaction. MD CHIOMA Vasques/FIOR /10:26 PM /7:42 AM
[2016-09-12 08:37] VITALS: BP 131/69; PULSE 59; RESP 18; TEMP 97.8; O2SAT 96
[2016-09-12] MEDS ORDERED: diphenhydrAMINE HCL 50 MG/ML VIAL IV PUSH PRN (09:00)
[2016-09-12] MEDS ORDERED: CALCIUM GLUCONATE INJ 1 GM in SODIUM CHLORIDE 0.9% INJ 50 ML IV SCH (09:00)
[2016-09-12] MEDS: SODIUM CHLOR 0.9% 1000 ML INJ 1,000 ML IV SCH (09:00)
[2016-09-12] MEDS ORDERED: NON-FORMULARY DRUG (Vitamins C & E (Cranberry Urinary Comfort) 1 CAP) PO SCH (09:00)
[2016-09-12] MEDS ORDERED: TERIFLUNOMIDE 14 MG PO SCH (09:00)
[2016-09-12] MEDS ORDERED: SODIUM CHLORIDE 0.9% 10 ML FLUSH IV FLUSH PRN (09:00)
[2016-09-12] MEDS ORDERED: HEPARIN SODIUM - 10,000 UNITS/ML 1ML VIAL IV FLUSH PRN (09:00)
[2016-09-12] MEDS: LISINOPRIL 20 MG TAB PO SCH ×2 (09:00→09:58)
[2016-09-12] MEDS: GABAPENTIN 300 MG CAP PO SCH ×3 (09:56→20:08)
[2016-09-12] MEDS: VITAMIN B COMPLEX/VIT C TAB PO SCH (09:56)
[2016-09-12] MEDS: NIFEdipine 60 MG SUSTAINED RELEASE TAB PO SCH (09:56)
[2016-09-12] MEDS: POTASSIUM CHLORIDE 20 MEQ CONTROLLED RELEASE TAB PO SCH (09:57)
[2016-09-12] MEDS: HYDROXYCHLOROQUINE SULFATE 200 MG TAB PO SCH ×2 (09:57→20:09)
[2016-09-12] MEDS: ASPIRIN 325 MG TAB PO SCH (09:57)
[2016-09-12] MEDS: FUROSEMIDE 40 MG TAB PO SCH (09:57)
[2016-09-12] MEDS: TOLTERODINE TARTRATE 4 MG CAP LA PO SCH (09:58)
[2016-09-12] MEDS: CHOLECALCIFEROL (VIT D3) 1000 UNIT TAB PO SCH (10:00)
[2016-09-12] MEDS: PANTOPRAZOLE SOD 20 MG DELAYED RELEASE TAB PO SCH (10:00)
[2016-09-12] MEDS: cloNIDine HCL 0.2 MG TAB PO SCH ×3 (10:01→17:26)
--- NOTE | 2016-09-12 10:16 | PD.ONC.PN ---
Subjective Subjective Remarks Afebrile overnight. Pt states she slept well overnight. She is happy that her blood pressures are improved. No other complaints. Objective Data Date Time Temp Pulse Resp B/P Pulse Ox O2 Delivery O2 Flow Rate FiO2 09/12/16 08:37 97.8 59 18 131/69 96 09/12/16 06:41 98.1 66 18 142/82 97 09/11/16 20:00 97.8 64 18 116/68 95 09/11/16 20:00 97.8 64 18 116/68 95 09/11/16 18:20 98.3 65 20 142/85 99 09/11/16 17:30 61 16 142/76 99 09/11/16 15:00 97.8 68 16 149/70 98 Room Air 09/11/16 12:45 58 17 138/66 98 Room Air 09/11/16 11:10 17 98 Room Air 09/11/16 10:40 17 09/11/16 10:28 97.9 57 17 133/73 98 Result Diagram: 09/12/1627 09/12/1627 Laboratory Results Laboratory Tests Test 09/11/16 09/11/16 09/12/16 11:11 12:00 06:27 Urine Color YELLOW Urine Turbidity HAZY Urine pH 6.0 Urine Specific [place] 1.015 Urine Protein TRACE mg/dL Urine Glucose (UA) NEG mg/dL Urine Ketones NEG mg/dL Urine Occult Blood SMALL Urine Nitrite POS Urine Bilirubin NEG Urine Urobilinogen LESS THAN 2.0 MG/DL Urine Leukocyte Esterase LARGE Urine RBC 21 /hpf Urine WBC 92 /hpf Urine Squamous Epithelial 1 /hpf Cells Urine Bacteria MANY /hpf Urine Hyaline Casts 20 /lpf Urine Mucus FEW /lpf Microscopic Urinalysis Comment CULTURE INDICATED White Blood Count 6.8 TH/MM3 5.9 TH/MM3 Red Blood Count 4.24 MIL/MM3 3.98 MIL/MM3 Hemoglobin 11.4 GM/DL 10.8 GM/DL Hematocrit 35.9 % 33.6 % Mean Corpuscular Volume 84.6 FL 84.3 FL Mean Corpuscular Hemoglobin 26.9 PG 27.0 PG Mean Corpuscular Hemoglobin 31.8 % 32.1 % Concent Red Cell Distribution Width 15.1 % 14.6 % Platelet Count 290 TH/MM3 260 TH/MM3 Mean Platelet Volume 8.3 FL 8.3 FL Neutrophils (%) (Auto) 70.1 % 49.7 % Lymphocytes (%) (Auto) 14.2 % 30.5 % Monocytes (%) (Auto) 8.8 % 11.6 % Eosinophils (%) (Auto) 6.2 % 7.1 % Basophils (%) (Auto) 0.7 % 1.1 % Neutrophils # (Auto) 4.8 TH/MM3 2.9 TH/MM3 Lymphocytes # (Auto) 1.0 TH/MM3 1.8 TH/MM3 Monocytes # (Auto) 0.6 TH/MM3 0.7 TH/MM3 Eosinophils # (Auto) 0.4 TH/MM3 0.4 TH/MM3 Basophils # (Auto) 0.0 TH/MM3 0.1 TH/MM3 CBC Comment DIFF FINAL DIFF FINAL Differential Comment Prothrombin Time 10.8 SEC Prothromb Time International 1.0 RATIO Ratio Activated Partial 27.2 SEC Thromboplast Time Sodium Level 141 MEQ/L 142 MEQ/L Potassium Level 3.4 MEQ/L 3.3 MEQ/L Chloride Level 103 MEQ/L 105 MEQ/L Carbon Dioxide Level 29.3 MEQ/L 30.0 MEQ/L Anion Gap 9 MEQ/L 7 MEQ/L Blood Urea Nitrogen 14 MG/DL 17 MG/DL Creatinine 1.05 MG/DL 1.18 MG/DL Estimat Glomerular Filtration 65 ML/MIN 57 ML/MIN Rate Random Glucose 155 MG/DL 103 MG/DL Calcium Level 9.4 MG/DL 9.3 MG/DL Total Bilirubin 0.4 MG/DL Aspartate Amino Transf 11 U/L (AST/SGOT) Alanine Aminotransferase 16 U/L (ALT/SGPT) Alkaline Phosphatase 84 U/L Total Creatine Kinase 47 U/L Troponin I LESS THAN 0.02 NG/ML Total Protein 7.6 GM/DL Albumin 3.3 GM/DL Lipase 84 U/L Culture Results Microbiology Date/Time Procedure Status Source Growth 09/11/16 11:11 Urine Culture Received Urine Random Urine Pending Imaging Studies Last 24 hours Impressions Chest X-Ray 09/11/16 1403 Signed Impressions: Service Date/Time: Sunday, September 11, 2016 14:23 - CONCLUSION: 1. Dialysis catheter is in good position. 2. Compensated cardiomegaly. Fabien Sterling MD FACR Abdomen/Pelvis CT 09/11/16 1103 Signed Impressions: Service Date/Time: Sunday, September 11, 2016 13:45 - CONCLUSION: 1. No acute inflammatory process. 2. Status post cholecystectomy. Sky Pereira MD Administered Medications Medications (Trade) Dose Ordered Sig/Sury Route PRN Reason Start Time Stop Time Status Last Admin Dose Admin Sodium Chloride (NS Flush) 2 ml BID IV FLUSH 09/11/16 21:00 09/11/16 22:49 Aspirin (Aspirin) 325 mg DAILY PO 09/12/16 09:00 09/12/16 09:57 Clonidine (Catapres) 0.2 mg TID PO 09/11/16 18:00 09/12/16 10:01 Furosemide (Lasix) 40 mg DAILY PO 09/12/16 09:00 09/12/16 09:57 Gabapentin (Neurontin) 600 mg BID PO 09/11/16 21:00 09/12/16 09:56 Hydroxychloroquine Sulfate (Plaquenil) 200 mg BID PO 09/11/16 21:00 09/12/16 09:57 Lisinopril (Prinivil) 20 mg DAILY PO 09/12/16 09:00 09/12/16 09:58 Nifedipine (Procardia Xl) 60 mg DAILY PO 09/12/16 09:00 09/12/16 09:56 Pantoprazole Sodium (Protonix) 20 mg DAILY PO 09/11/16 15:00 09/12/16 10:00 Potassium Chloride (KCl) 20 meq DAILY PO 09/12/16 09:00 09/12/16 09:57 Vitamin B Complex/ Vitamin C (Allbee C) 1 tab DAILY PO 09/12/16 09:00 09/12/16 09:56 Cholecalciferol (Vitamin D3) 1,000 units DAILY PO 09/12/16 09:00 09/12/16 10:00 Tolterodine Tartrate (Detrol La) 4 mg DAILY PO 09/12/16 09:00 09/12/16 09:58 Objective Remarks GENERAL: Older female, lying in bed in no distress. SKIN: Warm and dry. Vascath in place to L chest. Asymptomatic. HEAD: Normocephalic. EYES: No injection or drainage. NECK: Supple, trachea midline. CARDIOVASCULAR: Regular rate and rhythm without murmurs. RESPIRATORY: Breath sounds equal bilaterally. No accessory muscle use. GASTROINTESTINAL: Abdomen soft, non-tender, nondistended. EXTREMITIES: No cyanosis. NEUROLOGICAL: No obvious focal deficit. Awake, alert, and oriented x3. Assessment/Plan Problem List: (1) Multiple sclerosis Status: Chronic Plan: -- Pt getting plasmapheresis; it is scheduled to be every other day x 3. -- Hematology consulted to arrange for treatment with [facility]. Hx/Workup: Pt is well known to Dr Suggs with long hisotry of multiple sclerosis. She currently takes Aubagio. She has been receiving plasmapheresis to complement her therapy. Last one was about 4 weeks ago. Most recently she has steven having problems with headaches and this prompted her to call EMS. Assessment 61 y/o female with multiple sclerosis exacerbation getting plasmapheresis. Plan 1. Plasmapheresis today. 2. Monitor for fevers 3. Monitor for bleeding Attending Statement The exam, history, and the medical decision-making described in the above note were completed with the assistance of the mid-level provider. I reviewed and agree with the findings presented. I attest that I had a [id number] encounter with the patient on the same day, and personally performed and documented my assessment and findings in the medical record. Pt seen and examined at lunch time. Needs assistance with ADL. Pleased her BP better controlled, no PINON this AM. Awaiting pheresis. Subjective improvement with pheresis per patient. Discussed w/ Dr. Stevens, cont pheresis as planned. Yun Quiles September 12, 2016 10:16 Beatriz Trevino MD September 12, 2016 23:38
[2016-09-12 12:41] VITALS: BP 159/91; PULSE 62; RESP 20; TEMP 98.2; O2SAT 94
--- NOTE | 2016-09-12 12:55 | HHI.PR ---
Subjective Remarks No new complaints. Objective Vitals Vital Signs Date Time Temp Pulse Resp B/P Pulse Ox O2 Delivery O2 Flow Rate FiO2 09/12/16 12:41 98.2 62 20 159/91 94 09/12/16 08:37 97.8 59 18 131/69 96 09/12/16 06:41 98.1 66 18 142/82 97 09/11/16 20:00 97.8 64 18 116/68 95 09/11/16 20:00 97.8 64 18 116/68 95 09/11/16 18:20 98.3 65 20 142/85 99 09/11/16 17:30 61 16 142/76 99 09/11/16 15:00 97.8 68 16 149/70 98 Room Air 09/11/16 09/11/16 09/12/16 15:00 23:00 07:00 Intake Total 227 ml Output Total 450 ml 300 ml Balance -223 ml -300 ml Intake Oral 227 ml Output Urine Total 450 ml 300 ml # Bowel Movements 0 0 Result Diagram: 09/12/16 0627 09/12/1627 Imaging Last Impressions Abdomen/Pelvis CT 09/11/16 1108 Signed Impressions: Service Date/Time: Sunday, September 11, 2016 13:45 - CONCLUSION: 1. No acute inflammatory process. 2. Status post cholecystectomy. Sky Pereira MD Objective Remarks GENERAL: This is a well-nourished, well-developed patient, in no apparent distress. CARDIOVASCULAR: Regular rate and rhythm without murmurs, gallops, or rubs. RESPIRATORY: Clear to auscultation. Breath sounds equal bilaterally. No wheezes , rales, or rhonchi. GASTROINTESTINAL: Abdomen soft, non-tender, nondistended. Normal active bowel sounds MUSCULOSKELETAL: Extremities without clubbing, cyanosis, or edema. NEURO: muscle strength at UEs appear intact and symmetrical profound weakness at LEs. Unable to lift either leg off the bed. A/P Problem List: (1) Generalized weakness Status: Acute Plan: - comgmt with Neurology and Hematology - Pt admitted with increased generalized weakness over the last week, worsening UE/hand weakness and unable to get herself out of bed for the last few days. - She has progressive Multiple Sclerosis and has been intolerant of prior multiple sclerosis disease modifying agents - Pt has been receiving outpt plasmapheresis, more recently she had been getting plasmapheresis weekly. Her last session with Dr. Trevino was on 08/06. - Plasmapheresis 09/02 and then QOD x 3 doses - Cont. Aubagio - Cont. Gabapentin - Monitor clinical status - Supportive care - DVT prophylaxis (2) Multiple sclerosis Status: Chronic Plan: - See above. (3) Pyuria Status: Chronic Plan: - Pt with chronic indwelling suprapubic catheter and hx of complicated UTIs and MDR organisms - Pts UA was abnormal. - Culture is pending. - Pt was given a dose of Rocephin in the ED. - She has not had any fever and a noted normal WBC count. - We will hold on abx at this time and await culture results. (4) Chronic indwelling Mendoza catheter Status: Chronic Plan: - See above. (5) Essential hypertension Status: Chronic Plan: - Home meds continued - Monitor (6) Lupus (systemic lupus erythematosus) Status: Chronic Plan: - Cont. Plaquenil (7) Fibromyalgia Status: Chronic Jan Stevens DO September 12, 2016 12:55
--- NOTE | 2016-09-12 16:00 | EKG ---
Date Performed: 09/11/2016 Time Performed: 14:46:06 PTAGE: 61 years EKG: SINUS BRADYCARDIA LOW QRS VOLTAGE IN PRECORDIAL LEADS BORDERLINE ECG PREVIOUS TRACING : 09/11/2016 11.23 Compared to prior tracing no significant change DOCTOR: Bert Ponce Interpretating Date/Time 09/12/2016 15:58:37
--- NOTE | 2016-09-12 16:00 | EKG ---
Date Performed: 09/11/2016 Time Performed: 11:23:45 PTAGE: 61 years EKG: SINUS BRADYCARDIA LOW QRS VOLTAGE IN PRECORDIAL LEADS BORDERLINE ECG PREVIOUS TRACING : 06/29/2016 04.36 Compared to prior tracing no significant change DOCTOR: Bert Ponce Interpretating Date/Time 09/12/2016 15:58:23
[2016-09-12 16:12] VITALS: BP 118/70; PULSE 79; RESP 20; TEMP 97.3; O2SAT 94
[2016-09-12] MEDS: ONDANSETRON HCL 4 MG/2 ML VIAL IVP PRN (20:08)
[2016-09-12] MEDS: NIFEdipine 10 MG CAP PO SCH (20:11)
[2016-09-12] MEDS: SODIUM CHLORIDE 0.9% FLUSH 10 ML FLUSH IV FLUSH SCH (21:00)
[2016-09-12 21:17] VITALS: BP 100/57; PULSE 75; RESP 22; TEMP 97.3; O2SAT 98
[2016-09-13 00:25] VITALS: BP 106/58; PULSE 70; RESP 20; TEMP 97.4; O2SAT 95
[2016-09-13 05:51] VITALS: BP 138/64; PULSE 82; RESP 20; TEMP 97.1; O2SAT 95
[2016-09-13 08:00] VITALS: BP 132/65; PULSE 74; RESP 20; TEMP 98.5; O2SAT 96
[2016-09-13] MEDS: cloNIDine HCL 0.2 MG TAB PO SCH ×3 (08:12→18:17)
[2016-09-13] MEDS: CHOLECALCIFEROL (VIT D3) 1000 UNIT TAB PO SCH (08:14)
[2016-09-13] MEDS: GABAPENTIN 300 MG CAP PO SCH ×3 (08:16→21:24)
[2016-09-13] MEDS: LISINOPRIL 20 MG TAB PO SCH (08:18)
[2016-09-13] MEDS: HYDROXYCHLOROQUINE SULFATE 200 MG TAB PO SCH ×2 (08:19→21:24)
[2016-09-13] MEDS: FUROSEMIDE 40 MG TAB PO SCH (08:19)
[2016-09-13] MEDS: TOLTERODINE TARTRATE 4 MG CAP LA PO SCH (08:19)
[2016-09-13] MEDS: POTASSIUM CHLORIDE 20 MEQ CONTROLLED RELEASE TAB PO SCH (08:19)
[2016-09-13] MEDS: VITAMIN B COMPLEX/VIT C TAB PO SCH (08:19)
[2016-09-13] MEDS: ASPIRIN 325 MG TAB PO SCH (08:19)
[2016-09-13] MEDS: PANTOPRAZOLE SOD 20 MG DELAYED RELEASE TAB PO SCH (08:19)
[2016-09-13] MEDS: SODIUM CHLORIDE 0.9% FLUSH 10 ML FLUSH IV FLUSH SCH ×2 (08:20→21:25)
[2016-09-13] MEDS: NIFEdipine 60 MG SUSTAINED RELEASE TAB PO SCH (08:31)
[2016-09-13 12:00] VITALS: BP 119/74; PULSE 84; RESP 18; TEMP 97.9; O2SAT 96
--- NOTE | 2016-09-13 14:00 | HHI.PR ---
Subjective Remarks No new complaints. Objective Vitals Vital Signs Date Time Temp Pulse Resp B/P Pulse Ox O2 Delivery O2 Flow Rate FiO2 09/13/16 12:00 97.9 84 18 119/74 96 09/13/16 08:00 98.5 74 20 132/65 96 09/13/16 05:51 97.1 82 20 138/64 95 09/13/16 00:25 97.4 70 20 106/58 95 09/12/16 21:17 97.3 75 22 100/57 98 09/12/16 16:12 97.3 79 20 118/70 94 09/12/16 09/12/16 09/13/16 15:00 23:00 07:00 Intake Total 480 ml 480 ml Output Total 475 ml 300 ml 600 ml Balance 5 ml 180 ml -600 ml Intake Oral 480 ml 480 ml Output Urine Total 475 ml 300 ml 600 ml # Bowel Movements 0 0 Result Diagram: 09/12/16 0627 09/12/16 0627 Imaging Last Impressions Abdomen/Pelvis CT 09/11/16 1108 Signed Impressions: Service Date/Time: Sunday, September 11, 2016 13:45 - CONCLUSION: 1. No acute inflammatory process. 2. Status post cholecystectomy. Sky Pereira MD Objective Remarks GENERAL: This is a well-nourished, well-developed patient, in no apparent distress. CARDIOVASCULAR: Regular rate and rhythm without murmurs, gallops, or rubs. RESPIRATORY: Clear to auscultation. Breath sounds equal bilaterally. No wheezes , rales, or rhonchi. GASTROINTESTINAL: Abdomen soft, non-tender, nondistended. Normal active bowel sounds MUSCULOSKELETAL: Extremities without clubbing, cyanosis, or edema. NEURO: muscle strength at UEs appear intact and symmetrical profound weakness at LEs. Unable to lift either leg off the bed. A/P Problem List: (1) Generalized weakness Status: Acute Plan: - comgmt with Neurology and Hematology - Pt admitted with increased generalized weakness over the last week, worsening UE/hand weakness and unable to get herself out of bed for the last few days. - She has progressive Multiple Sclerosis and has been intolerant of prior multiple sclerosis disease modifying agents - Pt has been receiving outpt plasmapheresis, more recently she had been getting plasmapheresis weekly. Her last session with Dr. Trevino was on 08/06. - Plasmapheresis 09/12, 09/14, 09/16 - Cont. Aubagio - Cont. Gabapentin - Monitor clinical status - Supportive care - DVT prophylaxis 09/13/16 - continue current treatment plan as outlined above (2) Multiple sclerosis Status: Chronic Plan: - See above. (3) Pyuria Status: Chronic Plan: - Pt with chronic indwelling suprapubic catheter and hx of complicated UTIs and MDR organisms - Pts UA was abnormal. - Culture shows mixed jay - Pt was given a dose of Rocephin in the ED. - She has not had any fever and a noted normal WBC count. (4) Chronic indwelling Mendoza catheter Status: Chronic Plan: - See above. (5) Essential hypertension Status: Chronic Plan: - Home meds continued - Monitor (6) Lupus (systemic lupus erythematosus) Status: Chronic Plan: - Cont. Plaquenil (7) Fibromyalgia Status: Chronic Jan Stevens DO September 13, 2016 14:00
[2016-09-13] MEDS ORDERED: LORazepam 2 MG/ML VIAL ONE (15:51)
[2016-09-13] MEDS ORDERED: IOHEXOL 350 MG/ML 50 ML BTL (for RAD DIAG) ONE (16:10)
--- NOTE | 2016-09-13 16:25 | PD.RAD ---
Post Procedure Progress Note Pre Procedure Diagnosis: (1) Suprapubic catheter dysfunction Post Procedure Diagnosis: (1) Suprapubic catheter dysfunction Procedure Date: September 13, 2016 Supervising Radiologist: Fran Capellan Proceduralist/Assist: RT Deana(R)() Anesthesia: Local Plan of Activity Patient to Unit: Nursing Unit Patient Condition: Good See PACS Report for procedural detail/treatment Drainage Procedure Procedure 1 Imaging Guidance: Fluoroscopy Procedure Type: Suprapubic Tube Procedure: Replacement Kazakh: 16 Fran Capellan MD September 13, 2016 16:25
--- NOTE | 2016-09-13 17:37 | RADRPT ---
EXAM DATE/TIME: 09/13/2016 16:37 [facility] COMPARISON: SUPRAPUBIC TUBE EXCHANGE, May 03, 2016, 11:09. INDICATIONS : UTI. Needs supra pubic exchange. MEDICAL HISTORY : Multiple sclerosis diagnosed in late 2012 requiring plasmapheresis periodically. Most recent plasmap heresis was March 2016. Fibromyalgia Bipolar disorder History of obesity Hypertension Lupus Fibromyalgia Gastroparesis Recurrent UTIs SURGICAL HISTORY : 2004 the patient had C3 through C6 anterior cervical discectomy and arthrodesis for severe cervical s tenosis and myelopathy 2008 the patient had again the same diagnosis but had C6-C7 anterior cervical discectomy and arthrode sis 2010 the patient had open reduction, internal fixation of a right ankle fracture Right distal fibula fracture Torn lateral meniscus last year and underwent arthroscopic surgery Laparoscopic cholecystectomy Hysterectomy Suprapubic catheter placement PermCath placement ENCOUNTER: Subsequent ACUITY: 7 - 11 months PAIN SCORE: 0/10 LOCATION: N/A FLUORO TIME: 1.0 minutes IMAGE SERIES: 2 CONTRAST: 20 cc Omnipaque 350 (iohexol) MEDICATION(S): 1.) 100 mcg fentanyl (Sublimaze) IV DEVICE(S): 1.) Mendoza catheter 16FR PROCEDURE : 1. Suprapubic catheter change. 2. Conscious sedation with continuous EKG and oximetry monitoring. The risks, benefits and alternatives to the procedure were explained and verbal and written consent w as obtained. The site was prepped in sterile fashion. Full sterile technique was used, including cap, mask, steril e gloves and gown and a large sterile sheet. Hand hygiene and 2% chlorhexidine and/or betadine/alcoho l prep was utilized per protocol for cutaneous antisepsis. The skin and subcutaneous tissues were infiltrated with local anes thetic solution. A guidewire was placed through the existing catheter and over this the prescribed catheter was placed in the bladder. Positive contrast was injected to confirm position. Conscious sedation was performed with the prescribed dosages and duration as above in the presence of an independent trained radiology nurse to assist in the monitoring of the patient. EKG and oximetry remained stable throughout the procedure. The patient tolerated the procedure well and there were no complications. The patient was sent to post anesthesia recovery in stable condition. CONCLUSION: Uncomplicated suprapubic catheter exchange. Fran Capellan MD on September 13, 2016 at 17:34 Board Certified Radiologist. This report was verified electronically.
[2016-09-13 18:21] VITALS: BP 126/78
--- NOTE | 2016-09-13 18:27 | HHI.PR ---
Review/Management Diagnosis Multiple Sclerosis exacerbation Plan continue pheresis every other day for at least 3 total treatments, longer if not improved Diagnosis/Plan: Subjective Subjective Comments No acute events reported Had pheresis #1 yesterday and tolerated it well Active Medications Current Medications Medications (Trade) Dose Ordered Sig/Sury Route Start Time Stop Time Status Last Admin (NS Flush) 2 ml UNSCH PRN IV FLUSH 09/11/16 14:15 (NS Flush) 2 ml BID IV FLUSH 09/11/16 21:00 09/13/16 08:20 (Tylenol) 650 mg Q4H PRN PO 09/11/16 14:15 (Zofran Inj) 4 mg Q6H PRN IVP 09/11/16 18:00 09/12/16 20:08 (Milk Of Magnesia Liq) 30 ml Q12HR PRN PO 09/11/16 21:00 (Narcan Inj) 0.4 mg UNSCH PRN IV 09/11/16 14:15 (Aspirin) 325 mg DAILY PO 09/12/16 09:00 09/13/16 08:19 (Catapres) 0.2 mg TID PO 09/11/16 18:00 09/13/16 18:17 (Lasix) 40 mg DAILY PO 09/12/16 09:00 09/13/16 08:19 (Neurontin) 300 mg DAILY@1300 PO 09/12/16 13:00 09/13/16 13:15 (Neurontin) 600 mg BID PO 09/11/16 21:00 09/13/16 08:16 (Dilaudid) 4 mg Q8H PRN PO 09/11/16 15:00 (Plaquenil) 200 mg BID PO 09/11/16 21:00 09/13/16 08:19 (Prinivil) 20 mg DAILY PO 09/12/16 09:00 09/13/16 08:18 (Procardia) 30 mg HS PO 09/11/16 21:00 (Procardia Xl) 60 mg DAILY PO 09/12/16 09:00 09/13/16 08:31 (Protonix) 20 mg DAILY PO 09/11/16 15:00 09/13/16 08:19 (KCl) 20 meq DAILY PO 09/12/16 09:00 09/13/16 08:19 (Allbee C) 1 tab DAILY PO 09/12/16 09:00 09/13/16 08:19 (Vitamin D3) 1,000 units DAILY PO 09/12/16 09:00 09/13/16 08:14 (Detrol La) 4 mg DAILY PO 09/12/16 09:00 09/13/16 08:19 Non-Formulary Medication 14 mg DAILY PO 09/12/16 09:00 Hold (Albumin 5% Inj) 175 gm Q48H IV 09/12/16 09:00 09/16/16 09:01 Diphenhydramine HCl 25 mg 25 mg UNSCH PRN IV PUSH 09/12/16 09:00 09/16/16 08:59 Calcium Gluconate 1 gm/Sodium Chloride 60 ml @ 90 mls/hr Q48H IV 09/12/16 09:00 09/16/16 09:39 (NS 1000 ml Inj) 1,000 ml @ 0 mls/hr Q48H IV 09/12/16 09:00 09/16/16 09:01 (Acd Formula Inj) 1,000 ml Q48H OTHER 09/12/16 09:00 09/16/16 09:01 (NS Flush) 10 ml UNSCH PRN IV FLUSH 09/12/16 09:00 09/16/16 08:59 (Heparin Inj) 5,000 units UNSCH PRN IV FLUSH 09/12/16 09:00 09/16/16 08:59 09/12/16 20:11 Allergies Allergies Coded Allergies Adhesives (Verified Allergy, Severe, Rash, 09/11/16) Albuterol (Verified Allergy, Severe, SORES, 09/11/16) Codeine (Verified Allergy, Severe, SWELLING AND DIFFICULTY BREATHING, 09/11/16) Dynacirc (Verified Allergy, Severe, ELEVATED HEART RATE, 09/11/16) Lortab (Verified Allergy, Severe, RASH AND SWELLING, 09/11/16) Percocet (Verified Allergy, Severe, ITCHING, 09/11/16) Solu-Medrol (Verified Allergy, Severe, Shortness of Breath, 09/11/16) *MDRO Multi-Drug Resistant Organism (Verified Adverse Reaction, Unknown, ) Review of Systems All other ROS: ROS reviewed as documented in chart Exam I&O / VS 509/12/16 09/13/16 15:00 23:00 07:00 Intake Total 480 ml 480 ml Output Total 475 ml 300 ml 600 ml Balance 5 ml 180 ml -600 ml Intake Oral 480 ml 480 ml Output Urine Total 475 ml 300 ml 600 ml # Bowel Movements 0 0 Vital Signs Date Time Temp Pulse Resp B/P Pulse Ox O2 Delivery O2 Flow Rate FiO2 09/13/16 18:21 126/78 09/13/16 12:00 97.9 84 18 119/74 96 09/13/16 08:00 98.5 74 20 132/65 96 09/13/16 05:51 97.1 82 20 138/64 95 09/13/16 00:25 97.4 70 20 106/58 95 09/12/16 21:17 97.3 75 22 100/57 98 General: Alert and Oriented, No acute distress Eye: PERRL, EOMI Respiratory: Lungs CTA, Non-labored respirations, BS equal Cardiology: Normal rate, Regular Rhythm Musculoskeletal: ROM Neurologic: Alert, Oriented Psychiatric: Cooperative, Appropriate mood & affect Exam Comments alert, speech normal 'CN 2-12 normal MOTOR--5/5 BUE, 4-/5 BLE Objective Micro and Labs Date/Time Procedure Status Source Growth 09/11/16 11:11 Urine Culture - Final Complete Urine Random Urine 50-100,000 CFU/ML MIXED PATITO... Ameya Suggs PhD MD September 13, 2016 18:27
[2016-09-13 20:00] VITALS: BP 123/78; PULSE 79; RESP 18; TEMP 96.4; O2SAT 90
[2016-09-13] MEDS: NIFEdipine 10 MG CAP PO SCH (21:00)
[2016-09-14] VITALS: BP 126/80; PULSE 72; RESP 18; TEMP 96.2; O2SAT 91
[2016-09-14 04:00] VITALS: BP 123/18; PULSE 78; RESP 18; TEMP 97; O2SAT 91
[2016-09-14 08:00] VITALS: BP 110/61; PULSE 90; RESP 20; TEMP 97.7; O2SAT 98
[2016-09-14] MEDS: LISINOPRIL 20 MG TAB PO SCH (09:00)
[2016-09-14] MEDS: HYDROXYCHLOROQUINE SULFATE 200 MG TAB PO SCH ×2 (09:00→21:40)
[2016-09-14] MEDS: SODIUM CHLOR 0.9% 1000 ML INJ 1,000 ML IV SCH (09:00)
--- NOTE | 2016-09-14 09:16 | PD.ONC.PN ---
Subjective Subjective Remarks Afebrile overnight. Patient resting in bed. Reports no improvement from plasma exchange done on 09/12. Objective Data Date Time Temp Pulse Resp B/P Pulse Ox O2 Delivery O2 Flow Rate FiO2 09/14/16 08:00 97.7 90 20 110/61 98 09/14/16 04:00 97.0 78 18 123/18 91 09/14/16 00:00 96.2 72 18 126/80 91 09/13/16 20:00 96.4 79 18 123/78 90 09/13/16 18:21 126/78 09/13/16 12:00 97.9 84 18 119/74 96 09/14/16 09/14/16 09/14/16 07:00 15:00 23:00 Output Total 800 ml Balance -800 ml Result Diagram: 09/12/1662609/12/16626 Culture Results Microbiology Date/Time Procedure Status Source Growth 09/11/16 11:11 Urine Culture - Final Complete Urine Random Urine 50-100,000 CFU/ML MIXED PATITO... Administered Medications Medications (Trade) Dose Ordered Sig/Sury Route PRN Reason Start Time Stop Time Status Last Admin Dose Admin Sodium Chloride (NS Flush) 2 ml BID IV FLUSH 09/11/16 21:00 09/13/16 21:25 Ondansetron HCl (Zofran Inj) 4 mg Q6H PRN IVP NAUSEA OR VOMITING 09/11/16 18:00 09/12/16 20:08 Aspirin (Aspirin) 325 mg DAILY PO 09/12/16 09:00 09/13/16 08:19 Clonidine (Catapres) 0.2 mg TID PO 09/11/16 18:00 09/13/16 18:17 Furosemide (Lasix) 40 mg DAILY PO 09/12/16 09:00 09/13/16 08:19 Gabapentin (Neurontin) 300 mg DAILY@1300 PO 09/12/16 13:00 09/13/16 13:15 Gabapentin (Neurontin) 600 mg BID PO 09/11/16 21:00 09/13/16 21:24 Hydroxychloroquine Sulfate (Plaquenil) 200 mg BID PO 09/11/16 21:00 09/13/16 21:24 Lisinopril (Prinivil) 20 mg DAILY PO 09/12/16 09:00 09/13/16 08:18 Nifedipine (Procardia) 30 mg HS PO 09/11/16 21:00 09/13/16 21:00 Nifedipine (Procardia Xl) 60 mg DAILY PO 09/12/16 09:00 09/13/16 08:31 Pantoprazole Sodium (Protonix) 20 mg DAILY PO 09/11/16 15:00 09/13/16 08:19 Potassium Chloride (KCl) 20 meq DAILY PO 09/12/16 09:00 09/13/16 08:19 Vitamin B Complex/ Vitamin C (Allbee C) 1 tab DAILY PO 09/12/16 09:00 09/13/16 08:19 Cholecalciferol (Vitamin D3) 1,000 units DAILY PO 09/12/16 09:00 09/13/16 08:14 Tolterodine Tartrate (Detrol La) 4 mg DAILY PO 09/12/16 09:00 09/13/16 08:19 Heparin Sodium (Porcine) (Heparin Inj) 5,000 units UNSCH PRN IV FLUSH FLUSH AFTER USING IV ACCESS 09/12/16 09:00 09/16/16 08:59 09/12/16 20:11 Objective Remarks GENERAL: middle aged female, sitting up in bed in [facility]. SKIN: Warm and dry. HEAD: Normocephalic. EYES: No injection or drainage. NECK: Supple, trachea midline. CARDIOVASCULAR: Regular rate and rhythm RESPIRATORY: Breath sounds equal bilaterally. No accessory muscle use. GASTROINTESTINAL: Abdomen soft, non-tender, nondistended. EXTREMITIES: No cyanosis NEUROLOGICAL: awake and alert, normal speech. weakness in all extremities Assessment/Plan Assessment 61 y/o female with multiple sclerosis exacerbation getting plasmapheresis. Plan 1. Plasmapheresis today. 2. check CBC, coags, fibrinogen Attending Statement The exam, history, and the medical decision-making described in the above note were completed with the assistance of the mid-level provider. I reviewed and agree with the findings presented. I attest that I had a [id number] encounter with the patient on the same day, and personally performed and documented my assessment and findings in the medical record. she has tolerated the pheresis well and feels she is getting better. no problems with catheter and next exchange in two days Sybil Banks September 14, 2016 09:15 Alex Sheffield MD September 14, 2016 16:31
[2016-09-14] MEDS: NIFEdipine 60 MG SUSTAINED RELEASE TAB PO SCH (10:18)
[2016-09-14] MEDS: cloNIDine HCL 0.2 MG TAB PO SCH ×3 (10:18→17:18)
[2016-09-14] MEDS: POTASSIUM CHLORIDE 20 MEQ CONTROLLED RELEASE TAB PO SCH (10:18)
[2016-09-14] MEDS: FUROSEMIDE 40 MG TAB PO SCH (10:18)
[2016-09-14] MEDS: TOLTERODINE TARTRATE 4 MG CAP LA PO SCH (10:18)
[2016-09-14] MEDS: CHOLECALCIFEROL (VIT D3) 1000 UNIT TAB PO SCH (10:19)
[2016-09-14] MEDS: PANTOPRAZOLE SOD 20 MG DELAYED RELEASE TAB PO SCH (10:19)
[2016-09-14] MEDS: VITAMIN B COMPLEX/VIT C TAB PO SCH (10:19)
[2016-09-14] MEDS: GABAPENTIN 300 MG CAP PO SCH ×3 (10:19→21:40)
[2016-09-14] MEDS: ASPIRIN 325 MG TAB PO SCH (10:19)
[2016-09-14] MEDS: SODIUM CHLORIDE 0.9% FLUSH 10 ML FLUSH IV FLUSH SCH ×2 (10:19→21:40)
[2016-09-14 10:29] LABS: AUTOMATED NEUTROPHIL # 3.5 TH/MM3 (1.8-7.7); BASOPHIL # 0.1 TH/MM3 (0-0.2); EOSINOPHIL # 0.8 TH/MM3 (0-0.4); EOSINOPHIL % 12.1 % (0.0-4.0); HEMATOCRIT 36.8 % (35.0-46.0); HEMO FLAGS DIFF FINAL; LYMPHOCYTE # 1.5 TH/MM3 (1.0-4.8); MEAN CELL VOLUME 84.5 FL (80.0-100.0); MEAN CORPUSCULAR HEMOGLOBIN 27.5 PG (27.0-34.0); MEAN CORPUSCULAR HGB CONC 32.6 % (32.0-36.0); MONO % 11.6 % (0.0-8.0); NEUT % 52.3 % (16.0-70.0); PLATELET COUNT 275 TH/MM3 (150-450); RED BLOOD COUNT 4.35 MIL/MM3 (4.00-5.30); WHITE BLOOD COUNT 6.6 TH/MM3 (4.0-11.0)
[2016-09-14 10:39] LABS: APTT (PATIENT) 22.3 SEC (24.3-30.1); PROTHROMBIN TIME - PATIENT 10.6 SEC (9.8-11.6)
[2016-09-14] MEDS: CALCIUM GLUCONATE INJ 4 GM in SODIUM CHLOR 0.9% 250 ML INJ 200 ML IV SCH ×2 (11:30→13:00)
[2016-09-14 12:00] VITALS: BP 112/68; PULSE 83; RESP 20; TEMP 96.6; O2SAT 99
--- NOTE | 2016-09-14 15:23 | HHI.PR ---
Subjective Remarks No new complaints. Objective Vitals Vital Signs Date Time Temp Pulse Resp B/P Pulse Ox O2 Delivery O2 Flow Rate FiO2 09/14/16 12:00 96.6 83 20 112/68 99 09/14/16 08:00 97.7 90 20 110/61 98 09/14/16 04:00 97.0 78 18 123/18 91 09/14/16 00:00 96.2 72 18 126/80 91 09/13/16 20:00 96.4 79 18 123/78 90 09/13/16 18:21 126/78 09/13/16 09/13/16 09/14/16 15:00 23:00 07:00 Intake Total 480 ml Output Total 1000 ml 800 ml Balance -520 ml -800 ml Intake Oral 480 ml Output Urine Total 1000 ml 800 ml Result Diagram: 09/14/16 0945 09/12/16 0627 Imaging Last Impressions Abdomen/Pelvis CT 09/11/16 1108 Signed Impressions: Service Date/Time: Sunday, September 11, 2016 13:45 - CONCLUSION: 1. No acute inflammatory process. 2. Status post cholecystectomy. Sky Pereira MD Objective Remarks GENERAL: This is a well-nourished, well-developed patient, in no apparent distress. CARDIOVASCULAR: Regular rate and rhythm without murmurs, gallops, or rubs. RESPIRATORY: Clear to auscultation. Breath sounds equal bilaterally. No wheezes , rales, or rhonchi. GASTROINTESTINAL: Abdomen soft, non-tender, nondistended. Normal active bowel sounds MUSCULOSKELETAL: Extremities without clubbing, cyanosis, or edema. NEURO: muscle strength at UEs appear intact and symmetrical profound weakness at LEs. Unable to lift either leg off the bed. A/P Problem List: (1) Generalized weakness Status: Acute Plan: - comgmt with Neurology and Hematology - Pt admitted with increased generalized weakness over the last week, worsening UE/hand weakness and unable to get herself out of bed for the last few days. - She has progressive Multiple Sclerosis and has been intolerant of prior multiple sclerosis disease modifying agents - Pt has been receiving outpt plasmapheresis, more recently she had been getting plasmapheresis weekly. Her last session with Dr. Trevino was on 08/06. - Plasmapheresis 09/12, 09/14, 09/16 - Cont. Aubagio - Cont. Gabapentin - Monitor clinical status - Supportive care - DVT prophylaxis 09/14/16 - continue current treatment plan as outlined above (2) Multiple sclerosis Status: Chronic Plan: - See above. (3) Pyuria Status: Chronic Plan: - Pt with chronic indwelling suprapubic catheter and hx of complicated UTIs and MDR organisms - Pts UA was abnormal. - Culture shows mixed jay - Pt was given a dose of Rocephin in the ED. - She has not had any fever and a noted normal WBC count. (4) Chronic indwelling Mendoza catheter Status: Chronic Plan: - See above. (5) Essential hypertension Status: Chronic Plan: - Home meds continued - Monitor (6) Lupus (systemic lupus erythematosus) Status: Chronic Plan: - Cont. Plaquenil (7) Fibromyalgia Status: Chronic Jan Stevens DO September 14, 2016 15:23
[2016-09-14 15:54] VITALS: BP 133/63; PULSE 70; RESP 20; TEMP 98.1; O2SAT 100
[2016-09-14] MEDS: NIFEdipine 10 MG CAP PO SCH (21:40)
[2016-09-15] MEDS: NIFEdipine 60 MG SUSTAINED RELEASE TAB PO SCH (09:00)
[2016-09-15] MEDS: CHOLECALCIFEROL (VIT D3) 1000 UNIT TAB PO SCH (09:00)
[2016-09-15] MEDS: SODIUM CHLORIDE 0.9% FLUSH 10 ML FLUSH IV FLUSH SCH ×2 (09:00→20:34)
[2016-09-15] MEDS: cloNIDine HCL 0.2 MG TAB PO SCH ×3 (09:01→16:55)
[2016-09-15] MEDS: PANTOPRAZOLE SOD 20 MG DELAYED RELEASE TAB PO SCH (09:01)
[2016-09-15] MEDS: POTASSIUM CHLORIDE 20 MEQ CONTROLLED RELEASE TAB PO SCH (09:01)
[2016-09-15] MEDS: VITAMIN B COMPLEX/VIT C TAB PO SCH (09:01)
[2016-09-15] MEDS: FUROSEMIDE 40 MG TAB PO SCH (09:02)
[2016-09-15] MEDS: TOLTERODINE TARTRATE 4 MG CAP LA PO SCH (09:02)
[2016-09-15] MEDS: HYDROXYCHLOROQUINE SULFATE 200 MG TAB PO SCH ×2 (09:02→20:30)
[2016-09-15] MEDS: GABAPENTIN 300 MG CAP PO SCH ×3 (09:02→20:31)
[2016-09-15] MEDS: LISINOPRIL 20 MG TAB PO SCH (09:02)
[2016-09-15 09:03] VITALS: BP 143/80; PULSE 96; RESP 18; TEMP 97.7; O2SAT 96
[2016-09-15] MEDS: ASPIRIN 325 MG TAB PO SCH (09:11)
[2016-09-15] MEDS: HYDROmorphone HCL 4 MG TAB PO PRN (09:11)
[2016-09-15 12:59] VITALS: BP 127/68; PULSE 80; RESP 19; TEMP 97.7; O2SAT 95
[2016-09-15] MEDS: TERIFLUNOMIDE 14 MG PO SCH (13:00)
--- NOTE | 2016-09-15 13:04 | HHI.PR ---
Subjective Remarks No new complaints. Objective Vitals Vital Signs Date Time Temp Pulse Resp B/P Pulse Ox O2 Delivery O2 Flow Rate FiO2 09/15/16 12:59 97.7 80 19 127/68 95 09/15/16 09:03 97.7 96 18 143/80 96 09/14/16 15:54 98.1 70 20 133/63 100 09/14/16 09/14/16 09/15/16 15:00 23:00 07:00 Intake Total 240 ml Output Total 450 ml 950 ml Balance -210 ml -950 ml Intake Oral 240 ml Output Urine Total 450 ml 950 ml # Bowel Movements 3 Result Diagram: 09/14/16 0945 09/12/16 0627 Imaging Last Impressions Abdomen/Pelvis CT 09/11/16 1108 Signed Impressions: Service Date/Time: Friday, September 11, 2016 13:45 - CONCLUSION: 1. No acute inflammatory process. 2. Status post cholecystectomy. Sky Pereira MD Objective Remarks GENERAL: This is a well-nourished, well-developed patient, in no apparent distress. CARDIOVASCULAR: Regular rate and rhythm without murmurs, gallops, or rubs. RESPIRATORY: Clear to auscultation. Breath sounds equal bilaterally. No wheezes , rales, or rhonchi. GASTROINTESTINAL: Abdomen soft, non-tender, nondistended. Normal active bowel sounds MUSCULOSKELETAL: Extremities without clubbing, cyanosis, or edema. NEURO: muscle strength at UEs appear intact and symmetrical profound weakness at LEs. Unable to lift either leg off the bed. A/P Problem List: (1) Generalized weakness Status: Acute Plan: - comgmt with Neurology and Hematology - Pt admitted with increased generalized weakness over the last week, worsening UE/hand weakness and unable to get herself out of bed for the last few days. - She has progressive Multiple Sclerosis and has been intolerant of prior multiple sclerosis disease modifying agents - Pt has been receiving outpt plasmapheresis, more recently she had been getting plasmapheresis weekly. Her last session with Dr. Trevino was on 08/06. - Plasmapheresis 09/12, 09/14, 09/16 - Cont. Aubagio - Cont. Gabapentin - Monitor clinical status - Supportive care - DVT prophylaxis 09/15/16 - pt interviewed and examine - NO acute findings - continue current treatment plan as outlined above (2) Multiple sclerosis Status: Chronic Plan: - See above. (3) Pyuria Status: Chronic Plan: - Pt with chronic indwelling suprapubic catheter and hx of complicated UTIs and MDR organisms - Pts UA was abnormal. - Culture shows mixed jay - Pt was given a dose of Rocephin in the ED. - She has not had any fever and a noted normal WBC count. (4) Chronic indwelling Mendoza catheter Status: Chronic Plan: - See above. (5) Essential hypertension Status: Chronic Plan: - Home meds continued - Monitor (6) Lupus (systemic lupus erythematosus) Status: Chronic Plan: - Cont. Plaquenil (7) Fibromyalgia Status: Chronic Jan Stevens DO September 15, 2016 13:04
[2016-09-15 16:29] VITALS: BP 127/86; PULSE 86; RESP 19; TEMP 95.9; O2SAT 96
[2016-09-15 20:00] VITALS: BP 117/71; PULSE 86; RESP 24; TEMP 96.7; O2SAT 96
[2016-09-15] MEDS: NIFEdipine 10 MG CAP PO SCH (20:30)
[2016-09-15] MEDS: METHENAMINE HIPPURATE 1 GM PO SCH (20:31)
[2016-09-16] VITALS: BP 131/70; PULSE 78; RESP 22; TEMP 98.7; O2SAT 97
[2016-09-16] MEDS: ONDANSETRON HCL 4 MG/2 ML VIAL IVP PRN ×2 (01:50→15:45)
[2016-09-16 04:00] VITALS: BP 133/65; PULSE 93; RESP 18; TEMP 97.9; O2SAT 97
[2016-09-16 08:00] VITALS: BP 140/70; PULSE 92; RESP 20; TEMP 98.6; O2SAT 94
[2016-09-16] MEDS: VITAMIN B COMPLEX/VIT C TAB PO SCH (08:55)
[2016-09-16] MEDS: PANTOPRAZOLE SOD 20 MG DELAYED RELEASE TAB PO SCH (08:55)
[2016-09-16] MEDS: TOLTERODINE TARTRATE 4 MG CAP LA PO SCH (08:56)
[2016-09-16] MEDS: GABAPENTIN 300 MG CAP PO SCH ×3 (08:57→22:11)
[2016-09-16] MEDS: HYDROXYCHLOROQUINE SULFATE 200 MG TAB PO SCH ×2 (08:57→23:25)
[2016-09-16] MEDS: CHOLECALCIFEROL (VIT D3) 1000 UNIT TAB PO SCH (08:57)
[2016-09-16] MEDS: cloNIDine HCL 0.2 MG TAB PO SCH ×3 (08:58→16:58)
[2016-09-16] MEDS: POTASSIUM CHLORIDE 20 MEQ CONTROLLED RELEASE TAB PO SCH (08:58)
[2016-09-16] MEDS: ASPIRIN 325 MG TAB PO SCH (08:59)
[2016-09-16] MEDS: FUROSEMIDE 40 MG TAB PO SCH (09:00)
[2016-09-16] MEDS: LISINOPRIL 20 MG TAB PO SCH (09:00)
[2016-09-16] MEDS: METHENAMINE HIPPURATE 1 GM PO SCH ×2 (09:02→21:00)
[2016-09-16] MEDS: TERIFLUNOMIDE 14 MG PO SCH (09:03)
[2016-09-16] MEDS: HYDROmorphone HCL 4 MG TAB PO PRN (09:16)
[2016-09-16] MEDS: SODIUM CHLORIDE 0.9% FLUSH 10 ML FLUSH IV FLUSH SCH ×2 (09:17→22:10)
--- NOTE | 2016-09-16 10:34 | PD.ONC.PN ---
Subjective Subjective Remarks Afebrile overnight. patient about to bathe. She is getting her last day of plasma exchange today. Denies bleeding. She feels the plasma exchange is helping her MS, but when I ask specifically what it is helping, she has a hard time articulating a difference in her symptoms from start of plasma exchange to now. Objective Data Date Time Temp Pulse Resp B/P Pulse Ox O2 Delivery O2 Flow Rate FiO2 09/16/16 08:00 98.6 92 20 140/70 94 09/16/16 04:00 97.9 93 18 133/65 97 09/16/16 00:00 98.7 78 22 131/70 97 09/15/16 20:00 96.7 86 24 117/71 96 09/15/16 16:29 95.9 86 19 127/86 96 09/15/16 12:59 97.7 80 19 127/68 95 09/16/16 09/16/16 09/16/16 07:00 15:00 23:00 Output Total 900 ml Balance -900 ml Result Diagram: 09/14/16 0945 09/12/16 0627 Administered Medications Medications (Trade) Dose Ordered Sig/Sury Route PRN Reason Start Time Stop Time Status Last Admin Dose Admin Sodium Chloride (NS Flush) 2 ml BID IV FLUSH 09/11/16 21:00 09/16/16 09:17 Ondansetron HCl (Zofran Inj) 4 mg Q6H PRN IVP NAUSEA OR VOMITING 09/11/16 18:00 09/16/16 01:50 Aspirin (Aspirin) 325 mg DAILY PO 09/12/16 09:00 09/16/16 08:59 Clonidine (Catapres) 0.2 mg TID PO 09/11/16 18:00 09/16/16 08:58 Furosemide (Lasix) 40 mg DAILY PO 09/12/16 09:00 09/16/16 09:00 Gabapentin (Neurontin) 300 mg DAILY@1300 PO 09/12/16 13:00 09/15/16 12:59 Gabapentin (Neurontin) 600 mg BID PO 09/11/16 21:00 09/16/16 08:57 Hydromorphone HCl (Dilaudid) 4 mg Q8H PRN PO Pain Management 09/11/16 15:00 09/16/16 09:16 Hydroxychloroquine Sulfate (Plaquenil) 200 mg BID PO 09/11/16 21:00 09/16/16 08:57 Lisinopril (Prinivil) 20 mg DAILY PO 09/12/16 09:00 09/15/16 09:02 Nifedipine (Procardia) 30 mg HS PO 09/11/16 21:00 09/15/16 20:30 Nifedipine (Procardia Xl) 60 mg DAILY PO 09/12/16 09:00 09/15/16 09:00 Pantoprazole Sodium (Protonix) 20 mg DAILY PO 09/11/16 15:00 09/16/16 08:55 Potassium Chloride (KCl) 20 meq DAILY PO 09/12/16 09:00 09/16/16 08:58 Vitamin B Complex/ Vitamin C (Allbee C) 1 tab DAILY PO 09/12/16 09:00 09/16/16 08:55 Cholecalciferol (Vitamin D3) 1,000 units DAILY PO 09/12/16 09:00 09/16/16 08:57 Tolterodine Tartrate (Detrol La) 4 mg DAILY PO 09/12/16 09:00 09/16/16 08:56 Patient Own Medication PT OWN MED: AUBA... DAILY PO 09/15/16 13:00 09/16/16 09:03 Patient Own Medication 1 ea BID PO 09/15/16 21:00 09/16/16 09:02 Objective Remarks GENERAL: Middle aged female, sitting up in bed in [facility]. SKIN: Warm and dry. perma-cath, left chest wall HEAD: Normocephalic. EYES: No injection or drainage. NECK: Supple, trachea midline. CARDIOVASCULAR: Regular rate and rhythm RESPIRATORY: Breath sounds equal bilaterally. No accessory muscle use. GASTROINTESTINAL: Abdomen soft, non-tender, nondistended. EXTREMITIES: No cyanosis NEUROLOGICAL: awake and alert, normal speech. Assessment/Plan Problem List: (1) Multiple sclerosis Status: Chronic Plan: --plasma exchange 09/12, 09/14 and 09/16 Hx/Workup: Pt is well known to Dr Suggs with long history of multiple sclerosis. She currently takes Aubagio. She has been receiving plasmapheresis to complement her therapy. Last one was about 4 weeks ago. Most recently she has steven having problems with headaches and this prompted her to call EMS. Assessment 61 y/o female with multiple sclerosis exacerbation getting plasmapheresis. Plan 1. last day of plasma exchange today 2. monitor CBC, coags, albumin Attending Statement The exam, history, and the medical decision-making described in the above note were completed with the assistance of the mid-level provider. I reviewed and agree with the findings presented. I attest that I had a [id number] encounter with the patient on the same day, and personally performed and documented my assessment and findings in the medical record. Pheresis is still dark and cloudy. pt seen and examined in evening concur w/ Dr. Suggs, c/o still weak Subjective response, to pheresis, better than admission Mild anemia Cont tx Fri and Friday. Sybil Banks September 16, 2016 10:34 Beatriz Trevino MD September 16, 2016 20:29
--- NOTE | 2016-09-16 11:10 | HHI.PR ---
Subjective Remarks No new complaints. Pt to have plasmapheresis today Objective Vitals Vital Signs Date Time Temp Pulse Resp B/P Pulse Ox O2 Delivery O2 Flow Rate FiO2 09/16/16 08:00 98.6 92 20 140/70 94 09/16/16 04:00 97.9 93 18 133/65 97 09/16/16 00:00 98.7 78 22 131/70 97 09/15/16 20:00 96.7 86 24 117/71 96 09/15/16 16:29 95.9 86 19 127/86 96 09/15/16 12:59 97.7 80 19 127/68 95 09/15/16 09/15/16 09/16/16 15:00 23:00 07:00 Output Total 900 ml Balance -900 ml Output Urine Total 900 ml Result Diagram: 09/14/16 0945 09/12/16 0627 Imaging Last Impressions Abdomen/Pelvis CT 09/11/16 1108 Signed Impressions: Service Date/Time: Sunday, September 11, 2016 13:45 - CONCLUSION: 1. No acute inflammatory process. 2. Status post cholecystectomy. Sky Pereira MD Objective Remarks General: NAD, AAOx3 Chest: CTA Cardiac: Regular Abd: +BS, soft ND/NT Ext: No edema Neuro: muscle strength at UEs appear intact and symmetrical profound weakness at LEs. Unable to lift either leg off the bed. A/P Problem List: (1) Generalized weakness Status: Acute Plan: - comgmt with Neurology and Hematology - Pt admitted with increased generalized weakness over the last week, worsening UE/hand weakness and unable to get herself out of bed for the last few days. - She has progressive Multiple Sclerosis and has been intolerant of prior multiple sclerosis disease modifying agents - Pt has been receiving outpt plasmapheresis, more recently she had been getting plasmapheresis weekly. Her last session with Dr. Trevino was on 08/06. - Plasmapheresis 09/12, 09/14, 09/16 - Cont. Aubagio - Cont. Gabapentin - Monitor clinical status - Supportive care - DVT prophylaxis (2) Multiple sclerosis Status: Chronic Plan: - See above. (3) Pyuria Status: Chronic Plan: - Pt with chronic indwelling suprapubic catheter and hx of complicated UTIs and MDR organisms - Pts UA was abnormal. - Culture shows mixed jay - Pt was given a dose of Rocephin in the ED. - She has not had any fever and a noted normal WBC count. - Suprapubic catheter was exchanged on 09/13 (4) Chronic indwelling Mendoza catheter Status: Chronic Plan: - See above. (5) Essential hypertension Status: Chronic Plan: - Home meds continued - Monitor (6) Lupus (systemic lupus erythematosus) Status: Chronic Plan: - Cont. Plaquenil (7) Fibromyalgia Status: Chronic Assessment and Plan Patient examined. Assessment and plan formulated with Katherin Nava PA-C. I agree with the above. MS flare. getting plasmapheresis. htn elevation. monitor and d/c in AM to home with hhc/pt and outpt PT referral Katherin Nava September 16, 2016 11:10 Alex Morales MD September 16, 2016 14:07
[2016-09-16] MEDS: NIFEdipine 60 MG SUSTAINED RELEASE TAB PO SCH (11:50)
[2016-09-16 11:55] LABS: AUTOMATED NEUTROPHIL # 4.7 TH/MM3 (1.8-7.7); BASOPHIL # 0.1 TH/MM3 (0-0.2); BASOPHIL % 1.2 % (0.0-2.0); EOSINOPHIL # 0.8 TH/MM3 (0-0.4); EOSINOPHIL % 9.9 % (0.0-4.0); HEMO FLAGS DIFF FINAL; LYMPH % 19.5 % (9.0-44.0); LYMPHOCYTE # 1.5 TH/MM3 (1.0-4.8); MEAN CELL VOLUME 84.6 FL (80.0-100.0); MEAN CORPUSCULAR HEMOGLOBIN 27.4 PG (27.0-34.0); MEAN CORPUSCULAR HGB CONC 32.4 % (32.0-36.0); MONO % 9.2 % (0.0-8.0); NEUT % 60.2 % (16.0-70.0); PLATELET COUNT 256 TH/MM3 (150-450); RED BLOOD COUNT 4.02 MIL/MM3 (4.00-5.30); RED CELL DISTRIBUTION WIDTH 15.1 % (11.6-17.2); WHITE BLOOD COUNT 7.9 TH/MM3 (4.0-11.0)
[2016-09-16 11:58] VITALS: BP 173/82; PULSE 81; RESP 20; TEMP 98.3; O2SAT 96
[2016-09-16 12:19] LABS: APTT (PATIENT) 25.6 SEC (24.3-30.1); INTERNATIONAL NORMALIZED RATIO 0.9 RATIO; PROTHROMBIN TIME - PATIENT 10.3 SEC (9.8-11.6)
[2016-09-16 12:27] LABS: BICARBONATE 26.4 MEQ/L (21.0-32.0); POTASSIUM 4.1 MEQ/L (3.5-5.1)
[2016-09-16] MEDS ORDERED: HEPARIN SODIUM - 10,000 UNITS/ML 1ML VIAL IV FLUSH ONE (12:30)
[2016-09-16] MEDS: ANTICOAGULANT CITRATE DEXTROSE SOLN-A 1L OTHER SCH ×3 (12:56→13:02)
[2016-09-16] MEDS: ALBUMIN HUMAN 5% 25 GM/500 ML BOTTLE IV SCH ×3 (12:57→13:02)
[2016-09-16] MEDS: CALCIUM GLUCONATE INJ 4 GM in SODIUM CHLOR 0.9% 250 ML INJ 200 ML IV SCH (13:00)
[2016-09-16] MEDS: SODIUM CHLOR 0.9% 1000 ML INJ 1,000 ML IV SCH (13:02)
--- NOTE | 2016-09-16 14:11 | HHI.FF ---
Face to Face Verification Diagnosis: (1) Multiple sclerosis (2) Head ache (3) GERD (gastroesophageal reflux disease) (4) Impaired mobility and activities of daily living (5) Generalized weakness (6) Essential hypertension (7) Suprapubic catheter dysfunction (8) Fibromyalgia (9) Lupus (systemic lupus erythematosus) (10) HTN (hypertension), benign Physical Therapy Order: Evaluate and Treat Home Health Nursing Order: Nursing assessment with vital signs Instructions: Pts port needs to be flushed with Heparin once per week. I have seen patient Angie Montez on 09/16/16. My clinical findings support the need for the requested home health care services because: Deconditioned w/ increased weakness Limited ability to care for self High risk of falls I certify that my clinical findings support that this patient is homebound because: [id number] bed/chair Katherin Nava September 16, 2016 14:11
[2016-09-16 16:00] VITALS: BP 126/60; PULSE 92; RESP 18; TEMP 97.4; O2SAT 94
--- NOTE | 2016-09-16 18:58 | HHI.PR ---
Review/Management Diagnosis Multiple Sclerosis exacerbation Plan continue pheresis every other day for at least 2 more treatments--fri and friday. Diagnosis/Plan: Subjective Subjective Comments No acute events reported Day # 3 plasmapheresis today Still feels weak Active Medications Current Medications Medications (Trade) Dose Ordered Sig/Sury Route Start Time Stop Time Status Last Admin (NS Flush) 2 ml UNSCH PRN IV FLUSH 09/11/16 14:15 (NS Flush) 2 ml BID IV FLUSH 09/11/16 21:00 09/16/16 09:17 (Tylenol) 650 mg Q4H PRN PO 09/11/16 14:15 (Zofran Inj) 4 mg Q6H PRN IVP 09/11/16 18:00 09/16/16 15:45 (Milk Of Magnesia Liq) 30 ml Q12HR PRN PO 09/11/16 21:00 (Narcan Inj) 0.4 mg UNSCH PRN IV 09/11/16 14:15 (Aspirin) 325 mg DAILY PO 09/12/16 09:00 09/16/16 08:59 (Catapres) 0.2 mg TID PO 09/11/16 18:00 09/16/16 16:58 (Lasix) 40 mg DAILY PO 09/12/16 09:00 09/16/16 09:00 (Neurontin) 300 mg DAILY@1300 PO 09/12/16 13:00 09/16/16 12:54 (Neurontin) 600 mg BID PO 09/11/16 21:00 09/16/16 08:57 (Dilaudid) 4 mg Q8H PRN PO 09/11/16 15:00 09/16/16 09:16 (Plaquenil) 200 mg BID PO 09/11/16 21:00 09/16/16 08:57 (Prinivil) 20 mg DAILY PO 09/12/16 09:00 09/15/16 09:02 (Procardia) 30 mg HS PO 09/11/16 21:00 09/15/16 20:30 (Procardia Xl) 60 mg DAILY PO 09/12/16 09:00 09/16/16 11:50 (Protonix) 20 mg DAILY PO 09/11/16 15:00 09/16/16 08:55 (KCl) 20 meq DAILY PO 09/12/16 09:00 09/16/16 08:58 (Allbee C) 1 tab DAILY PO 09/12/16 09:00 09/16/16 08:55 (Vitamin D3) 1,000 units DAILY PO 09/12/16 09:00 09/16/16 08:57 (Detrol La) 4 mg DAILY PO 09/12/16 09:00 09/16/16 08:56 Patient Own Medication PT OWN MED: AUBA... DAILY PO 09/15/16 13:00 09/16/16 09:03 Patient Own Medication 1 ea BID PO 09/15/16 21:00 09/16/16 09:02 Allergies Allergies Coded Allergies Adhesives (Verified Allergy, Severe, Rash, 09/11/16) Albuterol (Verified Allergy, Severe, SORES, 09/11/16) Codeine (Verified Allergy, Severe, SWELLING AND DIFFICULTY BREATHING, 09/11/16) Dynacirc (Verified Allergy, Severe, ELEVATED HEART RATE, 09/11/16) Lortab (Verified Allergy, Severe, RASH AND SWELLING, 09/11/16) Percocet (Verified Allergy, Severe, ITCHING, 09/11/16) Solu-Medrol (Verified Allergy, Severe, Shortness of Breath, 09/11/16) *MDRO Multi-Drug Resistant Organism (Verified Adverse Reaction, Unknown, ) Review of Systems All other ROS: ROS reviewed as documented in chart Exam I&O / VS 09/15/16 09/15/16 09/16/16 15:00 23:00 07:00 Output Total 900 ml Balance -900 ml Output Urine Total 900 ml Vital Signs Date Time Temp Pulse Resp B/P Pulse Ox O2 Delivery O2 Flow Rate FiO2 09/16/16 16:00 97.4 92 18 126/60 94 09/16/16 11:58 98.3 81 20 173/82 96 09/16/16 08:00 98.6 92 20 140/70 94 09/16/16 04:00 97.9 93 18 133/65 97 09/16/16 00:00 98.7 78 22 131/70 97 09/15/16 20:00 96.7 86 24 117/71 96 General: Alert and Oriented, No acute distress Eye: PERRL, EOMI Respiratory: Lungs CTA, Non-labored respirations, BS equal Cardiology: Normal rate, Regular Rhythm Musculoskeletal: ROM Neurologic: Alert, Oriented Psychiatric: Cooperative, Appropriate mood & affect Exam Comments alert, speech normal 'CN 2-12 normal MOTOR--/ BUE, 4+/5 BLE Objective Micro and Labs Laboratory Tests Test 09/16/16 11:25 White Blood Count 7.9 Red Blood Count 4.02 Hemoglobin 11.0 Hematocrit 34.0 Mean Corpuscular Volume 84.6 Mean Corpuscular Hemoglobin 27.4 Mean Corpuscular Hemoglobin 32.4 Concent Red Cell Distribution Width 15.1 Platelet Count 256 Mean Platelet Volume 8.7 Neutrophils (%) (Auto) 60.2 Lymphocytes (%) (Auto) 19.5 Monocytes (%) (Auto) 9.2 Eosinophils (%) (Auto) 9.9 Basophils (%) (Auto) 1.2 Neutrophils # (Auto) 4.7 Lymphocytes # (Auto) 1.5 Monocytes # (Auto) 0.7 Eosinophils # (Auto) 0.8 Basophils # (Auto) 0.1 CBC Comment DIFF FINAL Differential Comment Prothrombin Time 10.3 Prothromb Time International 0.9 Ratio Activated Partial 25.6 Thromboplast Time Fibrinogen 205 Sodium Level 141 Potassium Level 4.1 Chloride Level 108 Carbon Dioxide Level 26.4 Anion Gap 7 Blood Urea Nitrogen 19 Creatinine 1.13 Estimat Glomerular Filtration 59 Rate Random Glucose 111 Calcium Level 9.1 Ameya Suggs PhD MD September 16, 2016 18:58
[2016-09-16 20:00] VITALS: BP 107/56; PULSE 88; RESP 18; TEMP 97.5; O2SAT 97
[2016-09-16] MEDS: NIFEdipine 10 MG CAP PO SCH (22:11)
[2016-09-17] VITALS (7 sets, daily range): BP systolic 99–123; BP diastolic 54–76; PULSE 70–80; RESP 18–20; TEMP 96.3–97.4; O2SAT 8–98
[2016-09-17 01:34] LABS: AUTOMATED NEUTROPHIL # 2.4 TH/MM3 (1.8-7.7); BASOPHIL # 0.1 TH/MM3 (0-0.2); BASOPHIL % 1.4 % (0.0-2.0); EOSINOPHIL # 0.5 TH/MM3 (0-0.4); EOSINOPHIL % 9.4 % (0.0-4.0); HEMATOCRIT 33.1 % (35.0-46.0); LYMPH % 37.7 % (9.0-44.0); LYMPHOCYTE # 2.1 TH/MM3 (1.0-4.8); MEAN CELL VOLUME 85.1 FL (80.0-100.0); MEAN CORPUSCULAR HEMOGLOBIN 27.8 PG (27.0-34.0); MEAN CORPUSCULAR HGB CONC 32.6 % (32.0-36.0); NEUT % 42.5 % (16.0-70.0); PLATELET COUNT 39 TH/MM3 (150-450); RED BLOOD COUNT 3.89 MIL/MM3 (4.00-5.30); RED CELL DISTRIBUTION WIDTH 15.2 % (11.6-17.2); WHITE BLOOD COUNT 5.7 TH/MM3 (4.0-11.0)
[2016-09-17 02:45] LABS: HEMO FLAGS AUTO DIFF
[2016-09-17 02:50] LABS: OVALOCYTES 1+ (NORMAL); PLATELET ESTIMATE SMEAR LOW (NORMAL); PLATELET MORPHOLOGY NORMAL (NORMAL); SCAN/DIFF AUTO DIFF CONFIRMED
[2016-09-17] MEDS: SODIUM CHLORIDE 0.9% FLUSH 10 ML FLUSH IV FLUSH SCH ×2 (09:00→21:05)
[2016-09-17] MEDS: ASPIRIN 325 MG TAB PO SCH (09:00)
[2016-09-17] MEDS ORDERED: LISINOPRIL 20 MG TAB PO SCH (09:00)
[2016-09-17] MEDS: HYDROXYCHLOROQUINE SULFATE 200 MG TAB PO SCH ×2 (09:30→21:08)
[2016-09-17] MEDS: PANTOPRAZOLE SOD 20 MG DELAYED RELEASE TAB PO SCH (09:31)
[2016-09-17] MEDS: HYDROmorphone HCL 4 MG TAB PO PRN (09:31)
[2016-09-17] MEDS: cloNIDine HCL 0.2 MG TAB PO SCH ×4 (09:31→17:02)
[2016-09-17] MEDS: TOLTERODINE TARTRATE 4 MG CAP LA PO SCH (09:32)
[2016-09-17] MEDS: NIFEdipine 60 MG SUSTAINED RELEASE TAB PO SCH (09:32)
[2016-09-17] MEDS: GABAPENTIN 300 MG CAP PO SCH ×3 (09:33→21:08)
[2016-09-17] MEDS: FUROSEMIDE 40 MG TAB PO SCH (09:33)
[2016-09-17] MEDS: VITAMIN B COMPLEX/VIT C TAB PO SCH (09:33)
[2016-09-17] MEDS: CHOLECALCIFEROL (VIT D3) 1000 UNIT TAB PO SCH (09:33)
[2016-09-17] MEDS: POTASSIUM CHLORIDE 20 MEQ CONTROLLED RELEASE TAB PO SCH (09:34)
[2016-09-17] MEDS: METHENAMINE HIPPURATE 1 GM PO SCH ×2 (09:34→21:05)
[2016-09-17] MEDS: TERIFLUNOMIDE 14 MG PO SCH (09:35)
--- NOTE | 2016-09-17 11:21 | HHI.PR ---
Subjective Remarks no new problems Objective Vitals heart reg lung cta abd s/nt ext no edema Vital Signs Date Time Temp Pulse Resp B/P Pulse Ox O2 Delivery O2 Flow Rate FiO2 09/17/16 08:00 97.4 77 18 123/73 98 09/17/16 05:32 97.3 77 18 110/58 96 09/17/16 00:00 96.3 80 18 104/58 97 09/16/16 20:00 97.5 88 18 107/56 97 09/16/16 16:00 97.4 92 18 126/60 94 09/16/16 11:58 98.3 81 20 173/82 96 09/16/16 09/16/16 09/17/16 14:59 22:59 06:59 Intake Total 240 ml Output Total 200 ml 500 ml Balance 40 ml -500 ml Intake Oral 240 ml Output Urine Total 200 ml 500 ml # Bowel Movements 0 0 Result Diagram: 09/17/16 0118 09/16/16 1125 Imaging Last Impressions Abdomen/Pelvis CT 09/11/16 1108 Signed Impressions: Service Date/Time: Sunday, September 11, 2016 13:45 - CONCLUSION: 1. No acute inflammatory process. 2. Status post cholecystectomy. Sky Pereira MD A/P Problem List: (1) Multiple sclerosis Status: Chronic Plan: - Pt admitted with increased generalized weakness over the last week, worsening UE/hand weakness and unable to get herself out of bed for the last few days. - She has progressive Multiple Sclerosis and has been intolerant of prior multiple sclerosis disease modifying agents - Pt has been receiving outpt plasmapheresis, more recently she had been getting plasmapheresis weekly. Her last session with Dr. Trevino was on 08/06. - Plasmapheresis 09/12, 09/14, 09/16 - Cont. Aubagio - Cont. Gabapentin - DVT prophylaxis continue on plasmapheresis until Friday then d/c. (2) Generalized weakness Status: Acute Plan: -see above (3) Pyuria Status: Chronic Plan: - Pt with chronic indwelling suprapubic catheter and hx of complicated UTIs and MDR organisms - Pts UA was abnormal. - Culture shows mixed jay - Pt was given a dose of Rocephin in the ED. - She has not had any fever and a noted normal WBC count. - Suprapubic catheter was exchanged on 09/13 (4) Chronic indwelling Mendoza catheter Status: Chronic Plan: - See above. (5) Essential hypertension Status: Chronic Plan: - Home meds continued - Monitor (6) Lupus (systemic lupus erythematosus) Status: Chronic Plan: - Cont. Plaquenil (7) Fibromyalgia Status: Chronic Alex Morales MD September 17, 2016 11:21
[2016-09-17] MEDS: NIFEdipine 10 MG CAP PO SCH (21:08)
[2016-09-18] MEDS: NIFEdipine 10 MG CAP PO SCH ×2 (00:07→21:03)
[2016-09-18] MEDS: cloNIDine HCL 0.2 MG TAB PO SCH ×4 (00:22→18:05)
[2016-09-18 06:15] VITALS: BP 124/68; PULSE 98; RESP 18; TEMP 97.6; O2SAT 96
[2016-09-18 07:59] VITALS: BP 105/55; PULSE 85; RESP 18; TEMP 97.7; O2SAT 98
[2016-09-18] MEDS: CHOLECALCIFEROL (VIT D3) 1000 UNIT TAB PO SCH (08:22)
[2016-09-18] MEDS: TOLTERODINE TARTRATE 4 MG CAP LA PO SCH (08:22)
[2016-09-18] MEDS: HYDROXYCHLOROQUINE SULFATE 200 MG TAB PO SCH ×2 (08:22→21:03)
[2016-09-18] MEDS: VITAMIN B COMPLEX/VIT C TAB PO SCH (08:22)
[2016-09-18] MEDS: POTASSIUM CHLORIDE 20 MEQ CONTROLLED RELEASE TAB PO SCH (08:22)
[2016-09-18] MEDS: GABAPENTIN 300 MG CAP PO SCH ×3 (08:23→21:03)
[2016-09-18] MEDS: FUROSEMIDE 40 MG TAB PO SCH (08:23)
[2016-09-18] MEDS: SODIUM CHLORIDE 0.9% FLUSH 10 ML FLUSH IV FLUSH SCH ×2 (08:24→19:39)
[2016-09-18] MEDS: ASPIRIN 325 MG TAB PO SCH (08:24)
[2016-09-18] MEDS: NIFEdipine 60 MG SUSTAINED RELEASE TAB PO SCH (08:24)
[2016-09-18] MEDS: diphenhydrAMINE HCL 50 MG/ML VIAL IV SCH (08:24)
[2016-09-18] MEDS: PANTOPRAZOLE SOD 20 MG DELAYED RELEASE TAB PO SCH (08:24)
[2016-09-18] MEDS: METHENAMINE HIPPURATE 1 GM PO SCH ×2 (08:25→21:02)
[2016-09-18] MEDS: TERIFLUNOMIDE 14 MG PO SCH (08:26)
[2016-09-18] MEDS ORDERED: SODIUM CHLORIDE 0.9% FLUSH 10 ML FLUSH IV FLUSH PRN (09:00)
[2016-09-18] MEDS ORDERED: HEPARIN SODIUM - IV 10,000 UNITS/10 ML VIAL PRN (09:00)
[2016-09-18 09:15] LABS: AUTOMATED NEUTROPHIL # 4.1 TH/MM3 (1.8-7.7); BASOPHIL # 0.1 TH/MM3 (0-0.2); BASOPHIL % 1.3 % (0.0-2.0); EOSINOPHIL # 0.9 TH/MM3 (0-0.4); EOSINOPHIL % 12.4 % (0.0-4.0); HEMO FLAGS DIFF FINAL; LYMPH % 18.1 % (9.0-44.0); LYMPHOCYTE # 1.2 TH/MM3 (1.0-4.8); MEAN CELL VOLUME 85.3 FL (80.0-100.0); MEAN CORPUSCULAR HGB CONC 32.8 % (32.0-36.0); MONO % 8.2 % (0.0-8.0); PLATELET COUNT 259 TH/MM3 (150-450); RED BLOOD COUNT 3.98 MIL/MM3 (4.00-5.30); RED CELL DISTRIBUTION WIDTH 15.5 % (11.6-17.2); WHITE BLOOD COUNT 6.8 TH/MM3 (4.0-11.0)
[2016-09-18] MEDS: ALBUMIN HUMAN 5% 25 GM/500 ML BOTTLE IV SCH (10:00)
[2016-09-18] MEDS ORDERED: diphenhydrAMINE HCL 50 MG/ML VIAL IV PRN (10:00)
[2016-09-18] MEDS ORDERED: ANTICOAGULANT CITRATE DEXTROSE SOLN-A 1L PRN (10:00)
[2016-09-18] MEDS ORDERED: CALCIUM GLUCONATE INJ 1 GM in SODIUM CHLORIDE 0.9% INJ 50 ML IV PRN (10:00)
[2016-09-18] MEDS ORDERED: SODIUM CHLOR 0.9% 1000 ML INJ 1,000 ML IV SCH (10:00)
--- NOTE | 2016-09-18 12:24 | HHI.PR ---
Subjective Remarks doing ok. sleepy Objective Vitals heart reg lung cta abd s/nt ext no edema Vital Signs Date Time Temp Pulse Resp B/P Pulse Ox O2 Delivery O2 Flow Rate FiO2 09/18/16 07:59 97.7 85 18 105/55 98 09/18/16 06:15 97.6 98 18 124/68 96 09/17/16 20:00 96.7 79 18 109/55 98 09/17/16 17:01 99/54 09/17/16 16:00 96.6 74 20 113/76 94 09/17/16 09/17/16 09/18/16 15:00 23:00 07:00 Intake Total 480 ml Output Total 1000 ml 1400 ml 400 ml Balance -1000 ml -920 ml -400 ml Intake Oral 480 ml Output Urine Total 1000 ml 1400 ml 400 ml # Bowel Movements 0 0 0 Result Diagram: 09/18/16 0831 09/16/16 1125 Imaging Last Impressions Abdomen/Pelvis CT 09/11/16 1108 Signed Impressions: Service Date/Time: Sunday, September 11, 2016 13:45 - CONCLUSION: 1. No acute inflammatory process. 2. Status post cholecystectomy. Sky Pereira MD A/P Problem List: (1) Multiple sclerosis Status: Chronic Plan: - Pt admitted with increased generalized weakness over the last week, worsening UE/hand weakness and unable to get herself out of bed for the last few days. - She has progressive Multiple Sclerosis and has been intolerant of prior multiple sclerosis disease modifying agents - Pt has been receiving outpt plasmapheresis, more recently she had been getting plasmapheresis weekly. Her last session with Dr. Trevino was on 08/06. - Plasmapheresis 09/12, 09/14, 09/16 - Cont. Aubagio - Cont. Gabapentin - DVT prophylaxis continue on plasmapheresis until Friday then d/c. otherwise stable. (2) Generalized weakness Status: Acute Plan: -see above (3) Pyuria Status: Chronic Plan: - Pt with chronic indwelling suprapubic catheter and hx of complicated UTIs and MDR organisms - Pts UA was abnormal. - Culture shows mixed jay - Pt was given a dose of Rocephin in the ED. - She has not had any fever and a noted normal WBC count. - Suprapubic catheter was exchanged on 09/13 (4) Chronic indwelling Mendoza catheter Status: Chronic Plan: - See above. (5) Essential hypertension Status: Chronic Plan: - Home meds continued - Monitor (6) Lupus (systemic lupus erythematosus) Status: Chronic Plan: - Cont. Plaquenil (7) Fibromyalgia Status: Chronic Alex Morales MD September 18, 2016 12:16
--- NOTE | 2016-09-18 12:24 | HHI.PR ---
Subjective Remarks No new complaints Pt to have plasmapheresis today and Friday. Objective Vitals Vital Signs Date Time Temp Pulse Resp B/P Pulse Ox O2 Delivery O2 Flow Rate FiO2 09/18/16 07:59 97.7 85 18 105/55 98 09/18/16 06:15 97.6 98 18 124/68 96 09/17/16 20:00 96.7 79 18 109/55 98 09/17/16 17:01 99/54 09/17/16 16:00 96.6 74 20 113/76 94 09/17/16 09/17/16 09/18/16 15:00 23:00 07:00 Intake Total 480 ml Output Total 1000 ml 1400 ml 400 ml Balance -1000 ml -920 ml -400 ml Intake Oral 480 ml Output Urine Total 1000 ml 1400 ml 400 ml # Bowel Movements 0 0 0 Result Diagram: 09/18/16 0831 09/16/16 1125 Other Results Laboratory Tests Test 09/17/16 09/18/16 01:18 08:31 White Blood Count 5.7 TH/MM3 6.8 TH/MM3 Red Blood Count 3.89 MIL/MM3 3.98 MIL/MM3 Hemoglobin 10.8 GM/DL 11.2 GM/DL Hematocrit 33.1 % 34.0 % Mean Corpuscular Volume 85.1 FL 85.3 FL Mean Corpuscular Hemoglobin 27.8 PG 28.0 PG Mean Corpuscular Hemoglobin 32.6 % 32.8 % Concent Red Cell Distribution Width 15.2 % 15.5 % Platelet Count 39 TH/MM3 259 TH/MM3 Mean Platelet Volume 8.7 FL 8.7 FL Neutrophils (%) (Auto) 42.5 % 60.0 % Lymphocytes (%) (Auto) 37.7 % 18.1 % Monocytes (%) (Auto) 9.0 % 8.2 % Eosinophils (%) (Auto) 9.4 % 12.4 % Basophils (%) (Auto) 1.4 % 1.3 % Neutrophils # (Auto) 2.4 TH/MM3 4.1 TH/MM3 Lymphocytes # (Auto) 2.1 TH/MM3 1.2 TH/MM3 Monocytes # (Auto) 0.5 TH/MM3 0.6 TH/MM3 Eosinophils # (Auto) 0.5 TH/MM3 0.9 TH/MM3 Basophils # (Auto) 0.1 TH/MM3 0.1 TH/MM3 CBC Comment AUTO DIFF DIFF FINAL Differential Comment AUTO DIFF CONFIRMED Platelet Estimate LOW Platelet Morphology Comment NORMAL Ovalocytes 1+ Imaging Last Impressions Tube Placement X-Ray 09/13/16 0000 Signed Impressions: Service Date/Time: Tuesday, September 13, 2016 16:37 - CONCLUSION: Uncomplicated suprapubic catheter exchange. Fran Capellan MD Chest X-Ray 09/11/16 1403 Signed Impressions: Service Date/Time: Sunday, September 11, 2016 14:23 - CONCLUSION: 1. Dialysis catheter is in good position. 2. Compensated cardiomegaly. Fabien Sterling MD FACR Abdomen/Pelvis CT 09/11/16 1108 Signed Impressions: Service Date/Time: Sunday, September 11, 2016 13:45 - CONCLUSION: 1. No acute inflammatory process. 2. Status post cholecystectomy. Sky Pereira MD Objective Remarks General: NAD, AAOx3 Chest: CTA Cardiac: Regular Abd: +BS, soft ND/NT Ext: No edema Neuro: muscle strength at UEs appear intact and symmetrical profound weakness at LEs. Unable to lift either leg off the bed. A/P Problem List: (1) Multiple sclerosis Status: Chronic Plan: - Pt admitted with increased generalized weakness over the last week, worsening UE/hand weakness and unable to get herself out of bed for the last few days. - She has progressive Multiple Sclerosis and has been intolerant of prior multiple sclerosis disease modifying agents - Pt has been receiving outpt plasmapheresis, more recently she had been getting plasmapheresis weekly. Her last session with Dr. Trevino was on 08/06. - Plasmapheresis 09/12, 09/14, 09/16, 09/18 and 09/20 - Cont. Gabapentin - Pt planned for discharge after her last plasmapheresis on Friday, 09/20. - DVT prophylaxis (2) Generalized weakness Status: Acute Plan: -see above (3) Pyuria Status: Chronic Plan: - Pt with chronic indwelling suprapubic catheter and hx of complicated UTIs and MDR organisms - Pts UA was abnormal. - Culture shows mixed jay - Pt was given a dose of Rocephin in the ED. - She has not had any fever and a noted normal WBC count. - Suprapubic catheter was exchanged on 09/13 (4) Chronic indwelling Mendoza catheter Status: Chronic Plan: - See above. (5) Essential hypertension Status: Chronic Plan: - Home meds continued - Monitor (6) Lupus (systemic lupus erythematosus) Status: Chronic Plan: - Cont. Plaquenil (7) Fibromyalgia Status: Chronic Katherin Nava September 18, 2016 12:23
[2016-09-18 13:10] VITALS: BP 126/68; PULSE 80; RESP 18; TEMP 96; O2SAT 98
[2016-09-18] MEDS: CALCIUM GLUCONATE INJ 4 GM in SODIUM CHLOR 0.9% 250 ML INJ 200 ML IV SCH (15:00)
[2016-09-18] MEDS ORDERED: HEPARIN SODIUM - SQ 10,000 UNITS/ML VIAL IV FLUSH PRN (15:00)
[2016-09-18 15:25] VITALS: BP 134/76; PULSE 88; RESP 20; TEMP 97.7; O2SAT 98
[2016-09-18] MEDS: HYDROmorphone HCL 4 MG TAB PO PRN (16:49)
--- NOTE | 2016-09-18 21:09 | PD.ONC.PN ---
Subjective Subjective Remarks I am too weak to type on my computer. Feels stronger, believes the pheresis fluid less dark. Objective Data Date Time Temp Pulse Resp B/P Pulse Ox O2 Delivery O2 Flow Rate FiO2 09/18/16 15:25 97.7 88 20 134/76 98 09/18/16 13:10 96.0 80 18 126/68 98 09/18/16 07:59 97.7 85 18 105/55 98 09/18/16 06:15 97.6 98 18 124/68 96 09/18/16 09/18/16 09/18/16 07:00 15:00 23:00 Intake Total 720 ml Output Total 400 ml 450 ml Balance -400 ml 270 ml Result Diagram: 09/18/16 0831 09/16/16 1125 Laboratory Results Laboratory Tests Test 09/18/16 08:31 White Blood Count 6.8 TH/MM3 Red Blood Count 3.98 MIL/MM3 Hemoglobin 11.2 GM/DL Hematocrit 34.0 % Mean Corpuscular Volume 85.3 FL Mean Corpuscular Hemoglobin 28.0 PG Mean Corpuscular Hemoglobin 32.8 % Concent Red Cell Distribution Width 15.5 % Platelet Count 259 TH/MM3 Mean Platelet Volume 8.7 FL Neutrophils (%) (Auto) 60.0 % Lymphocytes (%) (Auto) 18.1 % Monocytes (%) (Auto) 8.2 % Eosinophils (%) (Auto) 12.4 % Basophils (%) (Auto) 1.3 % Neutrophils # (Auto) 4.1 TH/MM3 Lymphocytes # (Auto) 1.2 TH/MM3 Monocytes # (Auto) 0.6 TH/MM3 Eosinophils # (Auto) 0.9 TH/MM3 Basophils # (Auto) 0.1 TH/MM3 CBC Comment DIFF FINAL Differential Comment Administered Medications Medications (Trade) Dose Ordered Sig/Sury Route PRN Reason Start Time Stop Time Status Last Admin Dose Admin Sodium Chloride (NS Flush) 2 ml BID IV FLUSH 09/11/16 21:00 09/18/16 19:39 Ondansetron HCl (Zofran Inj) 4 mg Q6H PRN IVP NAUSEA OR VOMITING 09/11/16 18:00 09/16/16 15:45 Aspirin (Aspirin) 325 mg DAILY PO 09/12/16 09:00 09/16/16 08:59 Clonidine (Catapres) 0.2 mg TID PO 09/11/16 18:00 09/18/16 18:05 Furosemide (Lasix) 40 mg DAILY PO 09/12/16 09:00 09/17/16 09:33 Gabapentin (Neurontin) 300 mg DAILY@1300 PO 09/12/16 13:00 09/18/16 13:49 Gabapentin (Neurontin) 600 mg BID PO 09/11/16 21:00 09/18/16 21:03 Hydromorphone HCl (Dilaudid) 4 mg Q8H PRN PO Pain Management 09/11/16 15:00 09/18/16 16:49 Hydroxychloroquine Sulfate (Plaquenil) 200 mg BID PO 09/11/16 21:00 09/18/16 21:03 Nifedipine (Procardia) 30 mg HS PO 09/11/16 21:00 09/18/16 21:03 Nifedipine (Procardia Xl) 60 mg DAILY PO 09/12/16 09:00 09/17/16 09:32 Pantoprazole Sodium (Protonix) 20 mg DAILY PO 09/11/16 15:00 09/18/16 08:24 Potassium Chloride (KCl) 20 meq DAILY PO 09/12/16 09:00 09/18/16 08:22 Vitamin B Complex/ Vitamin C (Allbee C) 1 tab DAILY PO 09/12/16 09:00 09/18/16 08:22 Cholecalciferol (Vitamin D3) 1,000 units DAILY PO 09/12/16 09:00 09/18/16 08:22 Tolterodine Tartrate (Detrol La) 4 mg DAILY PO 09/12/16 09:00 09/18/16 08:22 Patient Own Medication PT OWN MED: AUBA... DAILY PO 09/15/16 13:00 09/17/16 09:35 Patient Own Medication 1 ea BID PO 09/15/16 21:00 09/18/16 21:02 Diphenhydramine HCl (Benadryl Inj) 25 mg Q48H IV 09/18/16 09:00 09/20/16 09:01 09/18/16 08:24 Objective Remarks GENERAL: Well-nourished, well-developed patient. SKIN: Warm and dry. HEAD: Normocephalic. EYES: No scleral icterus. No injection or drainage. NECK: Supple, trachea midline. No JVD or lymphadenopathy. LYMPHATIC: No adenopathy. CARDIOVASCULAR: Regular rate and rhythm without murmurs. RESPIRATORY: Breath sounds equal bilaterally. No accessory muscle use. GASTROINTESTINAL: Abdomen soft, non-tender, nondistended. EXTREMITIES: No cyanosis, or edema. MUSCULOSKELETAL: Adequate muscle tone. NEUROLOGICAL: Weakness on LE, unable to weight bear. Assessment/Plan Problem List: (1) Multiple sclerosis Status: Chronic Plan: . Continue on pheresis #4 and #5 as scheduled. Tolerated pheresis well today. Feels stronger but unable to weight bear, could not work with PT today. Worried about HR elevation earlier, bedside pulse ox show HR 86 which is normal. --plasma exchange 09/12, 09/14 and 09/16 Hx/Workup: Pt is well known to Dr Suggs with long history of multiple sclerosis. She currently takes Aubagio. She has been receiving plasmapheresis to complement her therapy. Last one was about 4 weeks ago. Most recently she has steven having problems with headaches and this prompted her to call EMS. Assessment 61 y/o female with multiple sclerosis exacerbation getting plasmapheresis. Plan 1. 4th pheresis today 2. monitor CBC, coags, albumin Beatriz Trevino MD September 18, 2016 21:09
[2016-09-18 22:00] VITALS: BP 116/72; PULSE 87; RESP 17; TEMP 97.8; O2SAT 97
[2016-09-19] VITALS: BP 129/71; PULSE 98; RESP 18; TEMP 97.6; O2SAT 97
[2016-09-19 04:00] VITALS: BP 120/70; PULSE 88; RESP 19; TEMP 98.1; O2SAT 97
[2016-09-19 08:00] VITALS: BP 172/82; PULSE 99; RESP 20; TEMP 97; O2SAT 98
[2016-09-19] MEDS: METHENAMINE HIPPURATE 1 GM PO SCH ×2 (09:00→20:36)
[2016-09-19] MEDS: SODIUM CHLORIDE 0.9% FLUSH 10 ML FLUSH IV FLUSH SCH ×2 (09:00→20:37)
[2016-09-19] MEDS: cloNIDine HCL 0.2 MG TAB PO SCH ×3 (09:07→17:29)
[2016-09-19] MEDS: VITAMIN B COMPLEX/VIT C TAB PO SCH (09:07)
[2016-09-19] MEDS: CHOLECALCIFEROL (VIT D3) 1000 UNIT TAB PO SCH (09:07)
[2016-09-19] MEDS: TOLTERODINE TARTRATE 4 MG CAP LA PO SCH (09:07)
[2016-09-19] MEDS: FUROSEMIDE 40 MG TAB PO SCH (09:08)
[2016-09-19] MEDS: TERIFLUNOMIDE 14 MG PO SCH (09:08)
[2016-09-19] MEDS: HYDROXYCHLOROQUINE SULFATE 200 MG TAB PO SCH ×2 (09:08→20:36)
[2016-09-19] MEDS: POTASSIUM CHLORIDE 20 MEQ CONTROLLED RELEASE TAB PO SCH (09:08)
[2016-09-19] MEDS: ASPIRIN 325 MG TAB PO SCH (09:08)
[2016-09-19] MEDS: PANTOPRAZOLE SOD 20 MG DELAYED RELEASE TAB PO SCH (09:08)
[2016-09-19] MEDS: GABAPENTIN 300 MG CAP PO SCH ×3 (09:09→20:37)
[2016-09-19] MEDS: NIFEdipine 60 MG SUSTAINED RELEASE TAB PO SCH (09:19)
[2016-09-19] MEDS: HYDROmorphone HCL 4 MG TAB PO PRN (09:20)
[2016-09-19 12:00] VITALS: BP 131/80; PULSE 82; RESP 20; TEMP 96.7; O2SAT 98
[2016-09-19] MEDS: RESP: IPRATROPIUM 0.5 MG/2.5 ML NEB NEB SCH ×3 (12:22→19:45)
[2016-09-19 16:00] VITALS: BP 115/64; PULSE 80; RESP 18; TEMP 95.8; O2SAT 97
--- NOTE | 2016-09-19 17:27 | HHI.PR ---
Review/Management Diagnosis Multiple Sclerosis exacerbation Plan continue pheresis tomorrow #5. May need to consider continuing for a total of 7 treatments Diagnosis/Plan: Subjective Subjective Comments No acute events reported Has had 4 plasmapheresis and tolerates them still very weak Active Medications Current Medications Medications (Trade) Dose Ordered Sig/Sury Route Start Time Stop Time Status Last Admin (NS Flush) 2 ml UNSCH PRN IV FLUSH 09/11/16 14:15 (NS Flush) 2 ml BID IV FLUSH 09/11/16 21:00 09/19/16 09:00 (Tylenol) 650 mg Q4H PRN PO 09/11/16 14:15 (Zofran Inj) 4 mg Q6H PRN IVP 09/11/16 18:00 09/16/16 15:45 (Milk Of Magnesia Liq) 30 ml Q12HR PRN PO 09/11/16 21:00 09/19/16 17:24 (Narcan Inj) 0.4 mg UNSCH PRN IV 09/11/16 14:15 (Aspirin) 325 mg DAILY PO 09/12/16 09:00 09/19/16 09:08 (Catapres) 0.2 mg TID PO 09/11/16 18:00 09/19/16 12:50 (Lasix) 40 mg DAILY PO 09/12/16 09:00 09/19/16 09:08 (Neurontin) 300 mg DAILY@1300 PO 09/12/16 13:00 09/19/16 12:50 (Neurontin) 600 mg BID PO 09/11/16 21:00 09/19/16 09:09 (Dilaudid) 4 mg Q8H PRN PO 09/11/16 15:00 09/19/16 09:20 (Plaquenil) 200 mg BID PO 09/11/16 21:00 09/19/16 09:08 (Procardia) 30 mg HS PO 09/11/16 21:00 09/18/16 21:03 (Procardia Xl) 60 mg DAILY PO 09/12/16 09:00 09/19/16 09:19 (Protonix) 20 mg DAILY PO 09/11/16 15:00 09/19/16 09:08 (KCl) 20 meq DAILY PO 09/12/16 09:00 09/19/16 09:08 (Allbee C) 1 tab DAILY PO 09/12/16 09:00 09/19/16 09:07 (Vitamin D3) 1,000 units DAILY PO 09/12/16 09:00 09/19/16 09:07 (Detrol La) 4 mg DAILY PO 09/12/16 09:00 09/19/16 09:07 Patient Own Medication PT OWN MED: AUBA... DAILY PO 09/15/16 13:00 09/19/16 09:08 Patient Own Medication 1 ea BID PO 09/15/16 21:00 09/18/16 21:02 (Albumin 5% Inj) 175 gm Q48H IV 09/18/16 10:00 09/20/16 10:01 (Benadryl Inj) 25 mg Q48H IV 09/18/16 09:00 09/20/16 09:01 09/18/16 08:24 (Benadryl Inj) 25 mg Q4H PRN IV 09/18/16 10:00 09/20/16 19:00 (NS Flush) 10 ml UNSCH PRN IV FLUSH 09/20/16 09:00 09/20/16 20:00 (Heparin Inj) 500 units UNSCH PRN .XX 09/18/16 09:00 09/20/16 20:00 Lisinopril 20 mg 20 mg DAILY PO 09/21/16 09:00 09/21/16 09:01 Future Hold (Calcium Gluconate Inj/NS 250 ml Inj) 240 ml @ 120 mls/hr Q48H IV 09/18/16 15:00 09/20/16 16:59 (Heparin Inj) 10,000 units UNSCH PRN IV FLUSH 09/18/16 15:00 09/20/16 23:59 Allergies Allergies Coded Allergies Adhesives (Verified Allergy, Severe, Rash, 09/11/16) Albuterol (Verified Allergy, Severe, SORES, 09/11/16) Codeine (Verified Allergy, Severe, SWELLING AND DIFFICULTY BREATHING, 09/11/16) Dynacirc (Verified Allergy, Severe, ELEVATED HEART RATE, 09/11/16) Lortab (Verified Allergy, Severe, RASH AND SWELLING, 09/11/16) Percocet (Verified Allergy, Severe, ITCHING, 09/11/16) Solu-Medrol (Verified Allergy, Severe, Shortness of Breath, 09/11/16) *MDRO Multi-Drug Resistant Organism (Verified Adverse Reaction, Unknown, ) Review of Systems All other ROS: ROS reviewed as documented in chart Exam I&O / VS 09/18/16 09/18/16 09/19/16 15:00 23:00 07:00 Intake Total 720 ml 1000 ml 600 ml Output Total 450 ml 200 ml 300 ml Balance 270 ml 800 ml 300 ml Intake Oral 720 ml 1000 ml 600 ml Output Urine Total 450 ml 200 ml 300 ml # Bowel Movements 0 0 1 Vital Signs Date Time Temp Pulse Resp B/P Pulse Ox O2 Delivery O2 Flow Rate FiO2 09/19/16 16:00 95.8 80 18 115/64 97 09/19/16 12:00 96.7 82 20 131/80 98 09/19/16 08:00 97.0 99 20 172/82 98 09/19/16 04:00 98.1 88 19 120/70 97 09/19/16 00:00 97.6 98 18 129/71 97 09/18/16 22:00 97.8 87 17 116/72 97 General: Alert and Oriented, No acute distress Eye: PERRL, EOMI Respiratory: Lungs CTA, Non-labored respirations, BS equal Cardiology: Normal rate, Regular Rhythm Musculoskeletal: ROM Neurologic: Alert, Oriented Psychiatric: Cooperative, Appropriate mood & affect Exam Comments alert, speech normal 'CN 2-12 normal MOTOR--09/06 BUE, 3/5 Ameya Tanner PhD September 19, 2016 17:27
[2016-09-19 20:24] VITALS: BP 122/65; PULSE 80; RESP 18; TEMP 97.7; O2SAT 97
[2016-09-19] MEDS: NIFEdipine 10 MG CAP PO SCH (20:37)
--- NOTE | 2016-09-19 20:45 | HHI.PR ---
Subjective Remarks focused on a few spikes in bp nasal congestion and off home meds Objective Vitals nasal congestion heart reg lung cta abd s/nt ext no edema Vital Signs Date Time Temp Pulse Resp B/P Pulse Ox O2 Delivery O2 Flow Rate FiO2 09/19/16 20:24 97.7 80 18 122/65 97 09/19/16 16:00 95.8 80 18 115/64 97 09/19/16 12:00 96.7 82 20 131/80 98 09/19/16 08:00 97.0 99 20 172/82 98 09/19/16 04:00 98.1 88 19 120/70 97 09/19/16 00:00 97.6 98 18 129/71 97 09/18/16 22:00 97.8 87 17 116/72 97 09/18/16 09/18/16 09/19/16 15:00 23:00 07:00 Intake Total 720 ml 1000 ml 600 ml Output Total 450 ml 200 ml 300 ml Balance 270 ml 800 ml 300 ml Intake Oral 720 ml 1000 ml 600 ml Output Urine Total 450 ml 200 ml 300 ml # Bowel Movements 0 0 1 Result Diagram: 09/18/16 0831 09/16/16 1125 Imaging Last Impressions Tube Placement X-Ray 09/13/16 0000 Signed Impressions: Service Date/Time: Tuesday, September 13, 2016 16:37 - CONCLUSION: Uncomplicated suprapubic catheter exchange. Fran Capellan MD Chest X-Ray 09/11/16 1403 Signed Impressions: Service Date/Time: Sunday, September 11, 2016 14:23 - CONCLUSION: 1. Dialysis catheter is in good position. 2. Compensated cardiomegaly. Fabien Sterling MD FACR Abdomen/Pelvis CT 09/11/16 1108 Signed Impressions: Service Date/Time: Sunday, September 11, 2016 13:45 - CONCLUSION: 1. No acute inflammatory process. 2. Status post cholecystectomy. Sky Pereira MD A/P Problem List: (1) Multiple sclerosis Status: Chronic Plan: - Pt admitted with increased generalized weakness over the last week, worsening UE/hand weakness and unable to get herself out of bed for the last few days. - She has progressive Multiple Sclerosis and has been intolerant of prior multiple sclerosis disease modifying agents - Pt has been receiving outpt plasmapheresis, more recently she had been getting plasmapheresis weekly. Her last session with Dr. Trevino was on 08/06. - Plasmapheresis 09/12, 09/14, 09/16, 09/18 and 09/20 - unclear when pt will be discharged. - DVT prophylaxis (2) Generalized weakness Status: Acute Plan: -see above (3) Pyuria Status: Chronic Plan: - Pt with chronic indwelling suprapubic catheter and hx of complicated UTIs and MDR organisms - Pts UA was abnormal. - Culture shows mixed jay - Pt was given a dose of Rocephin in the ED. - She has not had any fever and a noted normal WBC count. - Suprapubic catheter was exchanged on 09/13 (4) Chronic indwelling Mendoza catheter Status: Chronic Plan: - See above. (5) Essential hypertension Status: Chronic Plan: - Home meds continued - Monitor (6) Lupus (systemic lupus erythematosus) Status: Chronic Plan: - Cont. Plaquenil (7) Fibromyalgia Status: Chronic Alex Morales MD September 19, 2016 20:45
[2016-09-20 00:02] VITALS: BP 137/78; PULSE 98; RESP 18; TEMP 97.3; O2SAT 96
[2016-09-20] MEDS: RESP: IPRATROPIUM 0.5 MG/2.5 ML NEB NEB SCH ×7 (00:25→23:59)
[2016-09-20] MEDS: HYDROmorphone HCL 4 MG TAB PO PRN (05:40)
[2016-09-20 05:46] VITALS: BP 132/73; PULSE 109; RESP 16; TEMP 98.5; O2SAT 95
[2016-09-20] MEDS: PATIENT OWN MEDICATION NASAL SCH ×3 (08:00→21:52)
[2016-09-20 08:14] VITALS: BP 148/69; PULSE 107; RESP 18; TEMP 98.6; O2SAT 97
--- NOTE | 2016-09-20 08:45 | HHI.PR ---
Review/Management Diagnosis Multiple Sclerosis exacerbation Plan Today she is scheduled for plasmapheresis #5. Because of the persistent weakness , I recommend continuing pheresis for a total of 7 treatments Diagnosis/Plan: Subjective Subjective Comments No acute events reported still c/o severe weakness BLE Active Medications Current Medications Medications (Trade) Dose Ordered Sig/Sury Route Start Time Stop Time Status Last Admin (NS Flush) 2 ml UNSCH PRN IV FLUSH 09/11/16 14:15 (NS Flush) 2 ml BID IV FLUSH 09/11/16 21:00 09/19/16 20:37 (Tylenol) 650 mg Q4H PRN PO 09/11/16 14:15 (Zofran Inj) 4 mg Q6H PRN IVP 09/11/16 18:00 09/16/16 15:45 (Milk Of Magnesia Liq) 30 ml Q12HR PRN PO 09/11/16 21:00 09/19/16 17:24 (Narcan Inj) 0.4 mg UNSCH PRN IV 09/11/16 14:15 (Aspirin) 325 mg DAILY PO 09/12/16 09:00 09/19/16 09:08 (Catapres) 0.2 mg TID PO 09/11/16 18:00 09/19/16 12:50 (Lasix) 40 mg DAILY PO 09/12/16 09:00 09/19/16 09:08 (Neurontin) 300 mg DAILY@1300 PO 09/12/16 13:00 09/19/16 12:50 (Neurontin) 600 mg BID PO 09/11/16 21:00 09/19/16 20:37 (Dilaudid) 4 mg Q8H PRN PO 09/11/16 15:00 09/20/16 05:40 (Plaquenil) 200 mg BID PO 09/11/16 21:00 09/19/16 20:36 (Procardia) 30 mg HS PO 09/11/16 21:00 09/19/16 20:37 (Procardia Xl) 60 mg DAILY PO 09/12/16 09:00 09/19/16 09:19 (Protonix) 20 mg DAILY PO 09/11/16 15:00 09/19/16 09:08 (KCl) 20 meq DAILY PO 09/12/16 09:00 09/19/16 09:08 (Allbee C) 1 tab DAILY PO 09/12/16 09:00 09/19/16 09:07 (Vitamin D3) 1,000 units DAILY PO 09/12/16 09:00 09/19/16 09:07 (Detrol La) 4 mg DAILY PO 09/12/16 09:00 09/19/16 09:07 Patient Own Medication PT OWN MED: AUBA... DAILY PO 09/15/16 13:00 09/19/16 09:08 Patient Own Medication 1 ea BID PO 09/15/16 21:00 09/19/16 20:36 (Albumin 5% Inj) 175 gm Q48H IV 09/18/16 10:00 09/20/16 10:01 (Benadryl Inj) 25 mg Q48H IV 09/18/16 09:00 09/20/16 09:01 09/18/16 08:24 (Benadryl Inj) 25 mg Q4H PRN IV 09/18/16 10:00 09/20/16 19:00 (NS Flush) 10 ml UNSCH PRN IV FLUSH 09/20/16 09:00 09/20/16 20:00 (Heparin Inj) 500 units UNSCH PRN .XX 09/18/16 09:00 09/20/16 20:00 Lisinopril 20 mg 20 mg DAILY PO 09/21/16 09:00 09/21/16 09:01 Future Hold (Calcium Gluconate Inj/NS 250 ml Inj) 240 ml @ 120 mls/hr Q48H IV 09/18/16 15:00 09/20/16 16:59 (Heparin Inj) 10,000 units UNSCH PRN IV FLUSH 09/18/16 15:00 09/20/16 23:59 Allergies Allergies Coded Allergies Adhesives (Verified Allergy, Severe, Rash, 09/11/16) Albuterol (Verified Allergy, Severe, SORES, 09/11/16) Codeine (Verified Allergy, Severe, SWELLING AND DIFFICULTY BREATHING, 09/11/16) Dynacirc (Verified Allergy, Severe, ELEVATED HEART RATE, 09/11/16) Lortab (Verified Allergy, Severe, RASH AND SWELLING, 09/11/16) Percocet (Verified Allergy, Severe, ITCHING, 09/11/16) Solu-Medrol (Verified Allergy, Severe, Shortness of Breath, 09/11/16) *MDRO Multi-Drug Resistant Organism (Verified Adverse Reaction, Unknown, ) Review of Systems All other ROS: ROS reviewed as documented in chart Exam I&O / VS 09/19/16 09/19/16 09/20/16 15:00 23:00 07:00 Intake Total 480 ml Output Total 450 ml 1200 ml Balance 30 ml -1200 ml Intake Oral 480 ml Output Urine Total 450 ml 1200 ml # Bowel Movements 0 1 Vital Signs Date Time Temp Pulse Resp B/P Pulse Ox O2 Delivery O2 Flow Rate FiO2 09/20/16 08:14 98.6 107 18 148/69 97 09/20/16 05:46 98.5 109 16 132/73 95 09/20/16 00:02 97.3 98 18 137/78 96 09/19/16 20:24 97.7 80 18 122/65 97 09/19/16 16:00 95.8 80 18 115/64 97 09/19/16 12:00 96.7 82 20 131/80 98 General: Alert and Oriented, No acute distress Eye: PERRL, EOMI Respiratory: Lungs CTA, Non-labored respirations, BS equal Cardiology: Normal rate, Regular Rhythm Musculoskeletal: ROM Neurologic: Alert, Oriented Psychiatric: Cooperative, Appropriate mood & affect Exam Comments alert, speech normal 'CN 2-12 normal MOTOR--09/06 BUE, 07/07 Ameya Tanner PhD September 20, 2016 08:45
[2016-09-20] MEDS ORDERED: SODIUM CHLORIDE 0.9% FLUSH 10 ML FLUSH IV FLUSH PRN (09:00)
[2016-09-20] MEDS: ASPIRIN 325 MG TAB PO SCH (09:00)
[2016-09-20] MEDS: CHOLECALCIFEROL (VIT D3) 1000 UNIT TAB PO SCH (09:00)
[2016-09-20] MEDS: METHENAMINE HIPPURATE 1 GM PO SCH ×2 (09:00→21:38)
[2016-09-20] MEDS: GABAPENTIN 300 MG CAP PO SCH ×3 (09:56→21:36)
[2016-09-20] MEDS: VITAMIN B COMPLEX/VIT C TAB PO SCH (09:57)
[2016-09-20] MEDS: PANTOPRAZOLE SOD 20 MG DELAYED RELEASE TAB PO SCH (09:57)
[2016-09-20] MEDS: NIFEdipine 60 MG SUSTAINED RELEASE TAB PO SCH (09:57)
[2016-09-20] MEDS: FUROSEMIDE 40 MG TAB PO SCH (09:58)
[2016-09-20] MEDS: HYDROXYCHLOROQUINE SULFATE 200 MG TAB PO SCH ×2 (09:58→21:38)
[2016-09-20] MEDS: TERIFLUNOMIDE 14 MG PO SCH (09:59)
[2016-09-20] MEDS: cloNIDine HCL 0.2 MG TAB PO SCH ×3 (10:00→18:03)
[2016-09-20] MEDS ORDERED: SODIUM CHLOR 0.9% 1000 ML INJ 1,000 ML IV SCH (10:00)
[2016-09-20] MEDS ORDERED: ANTICOAGULANT CITRATE DEXTROSE SOLN-A 1L PRN (10:00)
[2016-09-20] MEDS: TOLTERODINE TARTRATE 4 MG CAP LA PO SCH (10:00)
[2016-09-20] MEDS: SODIUM CHLORIDE 0.9% FLUSH 10 ML FLUSH IV FLUSH SCH ×2 (10:01→21:39)
[2016-09-20] MEDS: diphenhydrAMINE HCL 50 MG/ML VIAL IV SCH (10:01)
[2016-09-20] MEDS: POTASSIUM CHLORIDE 20 MEQ CONTROLLED RELEASE TAB PO SCH (10:10)
--- NOTE | 2016-09-20 11:22 | HHI.PR ---
Subjective Remarks Pt complained of some small amount of bleeding around her suprapubic catheter insertion site No blood noted at the time of examination and no evidence of infection (erythema , induration, drainage) Pt is afebrile. Objective Vitals Vital Signs Date Time Temp Pulse Resp B/P Pulse Ox O2 Delivery O2 Flow Rate FiO2 09/20/16 08:14 98.6 107 18 148/69 97 09/20/16 05:46 98.5 109 16 132/73 95 09/20/16 00:02 97.3 98 18 137/78 96 09/19/16 20:24 97.7 80 18 122/65 97 09/19/16 16:00 95.8 80 18 115/64 97 09/19/16 12:00 96.7 82 20 131/80 98 09/19/16 09/19/16 09/20/16 14:59 22:59 06:59 Intake Total 480 ml Output Total 450 ml 1200 ml Balance 30 ml -1200 ml Intake Oral 480 ml Output Urine Total 450 ml 1200 ml # Bowel Movements 0 1 Result Diagram: 09/18/16 0831 09/16/16 1125 Imaging Last Impressions Tube Placement X-Ray 09/13/16 0000 Signed Impressions: Service Date/Time: Tuesday, September 13, 2016 16:37 - CONCLUSION: Uncomplicated suprapubic catheter exchange. Fran Capellan MD Chest X-Ray 09/11/16 1403 Signed Impressions: Service Date/Time: Sunday, September 11, 2016 14:23 - CONCLUSION: 1. Dialysis catheter is in good position. 2. Compensated cardiomegaly. Fabien Sterling MD FACR Abdomen/Pelvis CT 09/11/16 1108 Signed Impressions: Service Date/Time: Sunday, September 11, 2016 13:45 - CONCLUSION: 1. No acute inflammatory process. 2. Status post cholecystectomy. Sky Pereira MD Objective Remarks General: NAD, AAOx3 Chest:CTA Cardiac: Regular Abd: +BS, soft ND/NT, suprapubic catheter site is clean, no drainage or bleeding noted, no erythema, tenderness, drainage or induration Ext: No edema A/P Problem List: (1) Multiple sclerosis Status: Chronic Plan: - Pt admitted with increased generalized weakness over the last week, worsening UE/hand weakness and unable to get herself out of bed for the last few days. - She has progressive Multiple Sclerosis and has been intolerant of prior multiple sclerosis disease modifying agents - Pt has been receiving outpt plasmapheresis, more recently she had been getting plasmapheresis weekly. Her last session with Dr. Trevino was on 08/06. - Plasmapheresis 09/12, 09/14, 09/16, 09/18 and 09/20 - Because of the persistent weakness, Neurology recommending continuing pheresis for a total of 7 treatments. She will receive another treatment on 09/22 and 09/24. - DVT prophylaxis (2) Generalized weakness Status: Acute Plan: -see above (3) Pyuria Status: Chronic Plan: - Pt with chronic indwelling suprapubic catheter and hx of complicated UTIs and MDR organisms - Pts UA was abnormal. - Culture shows mixed jay - Pt was given a dose of Rocephin in the ED. - She has not had any fever and a noted normal WBC count. - Suprapubic catheter was exchanged on 09/13 (4) Chronic indwelling Mendoza catheter Status: Chronic Plan: - See above. (5) Essential hypertension Status: Chronic Plan: - Home meds continued - Monitor (6) Lupus (systemic lupus erythematosus) Status: Chronic Plan: - Cont. Plaquenil (7) Fibromyalgia Status: Chronic Assessment and Plan Patient examined. Assessment and plan formulated with Katherin Nava PA-C. I agree with the above. cont plasmapheresis and d/c when ok with neuro.Katherin Schuler September 20, 2016 11:22 Alex Morales MD September 20, 2016 12:14
[2016-09-20 12:03] VITALS: BP 132/72; PULSE 91; RESP 18; TEMP 97.5; O2SAT 96
[2016-09-20] MEDS: CALCIUM GLUCONATE INJ 4 GM in SODIUM CHLOR 0.9% 250 ML INJ 200 ML IV SCH (14:31)
[2016-09-20] MEDS: ALBUMIN HUMAN 5% 25 GM/500 ML BOTTLE IV SCH (14:31)
[2016-09-20 14:52] LABS: AUTOMATED NEUTROPHIL # 3.2 TH/MM3 (1.8-7.7); BASOPHIL % 0.4 % (0.0-2.0); EOSINOPHIL # 0.8 TH/MM3 (0-0.4); EOSINOPHIL % 12.6 % (0.0-4.0); HEMATOCRIT 33.5 % (35.0-46.0); HEMO FLAGS DIFF FINAL; LYMPH % 26.2 % (9.0-44.0); LYMPHOCYTE # 1.6 TH/MM3 (1.0-4.8); MEAN CELL VOLUME 85.5 FL (80.0-100.0); MEAN CORPUSCULAR HEMOGLOBIN 27.1 PG (27.0-34.0); MEAN CORPUSCULAR HGB CONC 31.7 % (32.0-36.0); MONO % 7.9 % (0.0-8.0); NEUT % 52.9 % (16.0-70.0); PLATELET COUNT 268 TH/MM3 (150-450); RED BLOOD COUNT 3.91 MIL/MM3 (4.00-5.30); RED CELL DISTRIBUTION WIDTH 15.5 % (11.6-17.2); WHITE BLOOD COUNT 6.1 TH/MM3 (4.0-11.0)
--- NOTE | 2016-09-20 14:55 | PD.ONC.PN ---
Subjective Subjective Remarks Afebrile overnight. Patient feeling tired as she just had Catapres. She feels the plasma exchange is helping and would like to continue for two more treatments as recommended by the neurologist. Objective Data Date Time Temp Pulse Resp B/P Pulse Ox O2 Delivery O2 Flow Rate FiO2 09/20/16 12:03 97.5 91 18 132/72 96 09/20/16 08:14 98.6 107 18 148/69 97 09/20/16 05:46 98.5 109 16 132/73 95 09/20/16 00:02 97.3 98 18 137/78 96 09/19/16 20:24 97.7 80 18 122/65 97 09/19/16 16:00 95.8 80 18 115/64 97 09/20/16 09/20/16 09/20/16 07:00 15:00 23:00 Intake Total 860 ml Output Total 1200 ml 900 ml Balance -1200 ml -40 ml Result Diagram: 09/18/16 0831 09/16/16 1125 Administered Medications Medications (Trade) Dose Ordered Sig/Sury Route PRN Reason Start Time Stop Time Status Last Admin Dose Admin Sodium Chloride (NS Flush) 2 ml BID IV FLUSH 09/11/16 21:00 09/20/16 10:01 Ondansetron HCl (Zofran Inj) 4 mg Q6H PRN IVP NAUSEA OR VOMITING 09/11/16 18:00 09/16/16 15:45 Magnesium Hydroxide (Milk Of Magnesia Liq) 30 ml Q12HR PRN PO CONSTIPATION 09/11/16 21:00 09/19/16 17:24 Aspirin (Aspirin) 325 mg DAILY PO 09/12/16 09:00 09/19/16 09:08 Clonidine (Catapres) 0.2 mg TID PO 09/11/16 18:00 09/20/16 14:29 Furosemide (Lasix) 40 mg DAILY PO 09/12/16 09:00 09/20/16 09:58 Gabapentin (Neurontin) 300 mg DAILY@1300 PO 09/12/16 13:00 09/20/16 14:28 Gabapentin (Neurontin) 600 mg BID PO 09/11/16 21:00 09/20/16 09:56 Hydromorphone HCl (Dilaudid) 4 mg Q8H PRN PO Pain Management 09/11/16 15:00 09/20/16 05:40 Hydroxychloroquine Sulfate (Plaquenil) 200 mg BID PO 09/11/16 21:00 09/20/16 09:58 Nifedipine (Procardia) 30 mg HS PO 09/11/16 21:00 09/19/16 20:37 Nifedipine (Procardia Xl) 60 mg DAILY PO 09/12/16 09:00 09/20/16 09:57 Pantoprazole Sodium (Protonix) 20 mg DAILY PO 09/11/16 15:00 09/20/16 09:57 Potassium Chloride (KCl) 20 meq DAILY PO 09/12/16 09:00 09/20/16 10:10 Vitamin B Complex/ Vitamin C (Allbee C) 1 tab DAILY PO 09/12/16 09:00 09/20/16 09:57 Cholecalciferol (Vitamin D3) 1,000 units DAILY PO 09/12/16 09:00 09/20/16 09:00 Tolterodine Tartrate (Detrol La) 4 mg DAILY PO 09/12/16 09:00 09/20/16 10:00 Patient Own Medication PT OWN MED: AUBA... DAILY PO 09/15/16 13:00 09/20/16 09:59 Patient Own Medication 1 ea 1 ea BID PO 09/15/16 21:00 09/19/16 20:36 Calcium Gluconate/ Sodium Chloride (Calcium Gluconate Inj/NS 250 ml Inj) 240 ml @ 120 mls/hr Q48H IV 09/18/16 15:00 09/20/16 16:59 09/20/16 14:31 Objective Remarks GENERAL: Middle aged female, sitting up in bed in nad. SKIN: Warm and dry. perma-cath, left chest wall HEAD: Normocephalic. EYES: No injection or drainage. NECK: Supple, trachea midline. CARDIOVASCULAR: Regular rate and rhythm RESPIRATORY: Breath sounds equal bilaterally. No accessory muscle use. GASTROINTESTINAL: Abdomen soft, non-tender, nondistended. EXTREMITIES: No cyanosis NEUROLOGICAL: awake and alert, normal speech. good movement in bilateral upper extremities. very little movement of bilateral lower extremities. facial movements symmetric. Assessment/Plan Problem List: (1) Multiple sclerosis Status: Chronic Plan: 09/20: PEX #5 today. two additional PEX ordered as requested by neurology for 09/22 and 09/24 09/18. Continue on pheresis #4 and #5 as scheduled. Tolerated pheresis well today. Feels stronger but unable to weight bear, could not work with PT today. Worried about HR elevation earlier, bedside pulse ox show HR 86 which is normal. --plasma exchange 09/12, 09/14 and 09/16 Hx/Workup: Pt is well known to Dr Suggs with long history of multiple sclerosis. She currently takes Aubagio. She has been receiving plasmapheresis to complement her therapy. Last one was about 4 weeks ago. Most recently she has steven having problems with headaches and this prompted her to call EMS. Assessment 61 y/o female with multiple sclerosis exacerbation getting plasmapheresis. Plan 1. 5th pheresis today 2. monitor CBC, coags, albumin Attending Statement The exam, history, and the medical decision-making described in the above note were completed with the assistance of the mid-level provider. I reviewed and agree with the findings presented. I attest that I had a [id number] encounter with the patient on the same day, and personally performed and documented my assessment and findings in the medical record. As planned 5th pheresis. Noted neurology request to continue till #7, continue support. Sybil Banks September 20, 2016 14:54 Beatriz Trevino MD September 20, 2016 21:19
[2016-09-20 17:29] VITALS: BP 153/59; PULSE 89; RESP 17; TEMP 97; O2SAT 98
[2016-09-20 20:00] VITALS: BP 127/65; PULSE 81; RESP 20; TEMP 96.1; O2SAT 98
[2016-09-20] MEDS: NIFEdipine 10 MG CAP PO SCH (21:38)
[2016-09-21] VITALS (8 sets, daily range): BP systolic 111–135; BP diastolic 62–73; PULSE 82–93; RESP 18–22; TEMP 96.3–97.5; O2SAT 96–100
[2016-09-21] MEDS: RESP: IPRATROPIUM 0.5 MG/2.5 ML NEB NEB SCH ×5 (03:21→21:39)
[2016-09-21] MEDS: NIFEdipine 60 MG SUSTAINED RELEASE TAB PO SCH (08:23)
[2016-09-21] MEDS: CHOLECALCIFEROL (VIT D3) 1000 UNIT TAB PO SCH (08:23)
[2016-09-21] MEDS: TOLTERODINE TARTRATE 4 MG CAP LA PO SCH (08:23)
[2016-09-21] MEDS: HYDROXYCHLOROQUINE SULFATE 200 MG TAB PO SCH ×2 (08:23→21:39)
[2016-09-21] MEDS: POTASSIUM CHLORIDE 20 MEQ CONTROLLED RELEASE TAB PO SCH (08:23)
[2016-09-21] MEDS: ASPIRIN 325 MG TAB PO SCH (08:23)
[2016-09-21] MEDS: GABAPENTIN 300 MG CAP PO SCH ×3 (08:23→21:39)
[2016-09-21] MEDS: PANTOPRAZOLE SOD 20 MG DELAYED RELEASE TAB PO SCH (08:24)
[2016-09-21] MEDS: METHENAMINE HIPPURATE 1 GM PO SCH ×2 (08:24→21:00)
[2016-09-21] MEDS: FUROSEMIDE 40 MG TAB PO SCH (08:24)
[2016-09-21] MEDS: cloNIDine HCL 0.2 MG TAB PO SCH ×3 (08:24→21:37)
[2016-09-21] MEDS: VITAMIN B COMPLEX/VIT C TAB PO SCH (08:24)
[2016-09-21] MEDS: TERIFLUNOMIDE 14 MG PO SCH (08:25)
[2016-09-21] MEDS: SODIUM CHLORIDE 0.9% FLUSH 10 ML FLUSH IV FLUSH SCH ×2 (08:25→21:39)
[2016-09-21] MEDS: HYDROmorphone HCL 4 MG TAB PO PRN (08:44)
[2016-09-21] MEDS ORDERED: LISINOPRIL 20 MG TAB PO SCH (09:00)
[2016-09-21] MEDS: PATIENT OWN MEDICATION NASAL SCH ×2 (09:15→20:00)
--- NOTE | 2016-09-21 13:47 | HHI.PR ---
Subjective Remarks no new complaints Objective Vitals heart reg lung cta abd s/nt ext no edema Vital Signs Date Time Temp Pulse Resp B/P Pulse Ox O2 Delivery O2 Flow Rate FiO2 09/21/16 12:18 97.0 83 20 111/67 97 09/21/16 08:12 97.5 88 20 127/64 100 09/21/16 04:00 97.4 89 22 125/62 97 09/21/16 00:00 96.3 82 22 118/62 96 09/20/16 20:00 96.1 81 20 127/65 98 09/20/16 17:29 97.0 89 17 153/59 98 09/20/16 09/20/16 09/21/16 15:00 23:00 07:00 Intake Total 860 ml 0 ml Output Total 900 ml 750 ml Balance -40 ml -750 ml 0 ml Intake Oral 860 ml IV Total 0 ml Output Urine Total 900 ml 750 ml Result Diagram: 09/20/16 1422 Imaging Last Impressions Tube Placement X-Ray 09/13/16 0000 Signed Impressions: Service Date/Time: Tuesday, September 13, 2016 16:37 - CONCLUSION: Uncomplicated suprapubic catheter exchange. Fran Capellan MD Chest X-Ray 09/11/16 1403 Signed Impressions: Service Date/Time: Sunday, September 11, 2016 14:23 - CONCLUSION: 1. Dialysis catheter is in good position. 2. Compensated cardiomegaly. Fabien Sterling MD FACR Abdomen/Pelvis CT 09/11/16 1108 Signed Impressions: Service Date/Time: Sunday, September 11, 2016 13:45 - CONCLUSION: 1. No acute inflammatory process. 2. Status post cholecystectomy. Sky Pereira MD A/P Problem List: (1) Multiple sclerosis Status: Chronic Plan: - Pt admitted with increased generalized weakness over the last week, worsening UE/hand weakness and unable to get herself out of bed for the last few days. - She has progressive Multiple Sclerosis and has been intolerant of prior multiple sclerosis disease modifying agents - Pt has been receiving outpt plasmapheresis, more recently she had been getting plasmapheresis weekly. Her last session with Dr. Trevino was on 08/06. - Plasmapheresis 09/12, 09/14, 09/16, 09/18 and 09/20 - Because of the persistent weakness, Neurology recommending continuing pheresis for a total of 7 treatments. She will receive another treatment on 09/22 and 09/24. - DVT prophylaxis (2) Generalized weakness Status: Acute Plan: -see above (3) Pyuria Status: Chronic Plan: - Pt with chronic indwelling suprapubic catheter and hx of complicated UTIs and MDR organisms - Pts UA was abnormal. - Culture shows mixed jay - Pt was given a dose of Rocephin in the ED. - She has not had any fever and a noted normal WBC count. - Suprapubic catheter was exchanged on 09/13 (4) Chronic indwelling Mendoza catheter Status: Chronic Plan: - See above. (5) Essential hypertension Status: Chronic Plan: - Home meds continued - Monitor (6) Lupus (systemic lupus erythematosus) Status: Chronic Plan: - Cont. Plaquenil (7) Fibromyalgia Status: Chronic Alex Morales MD September 21, 2016 13:47
[2016-09-21] MEDS: NIFEdipine 10 MG CAP PO SCH (21:39)
[2016-09-22] VITALS (8 sets, daily range): BP systolic 100–136; BP diastolic 50–75; PULSE 81–105; RESP 18–20; TEMP 96.5–97.4; O2SAT 84–100
[2016-09-22] MEDS: RESP: IPRATROPIUM 0.5 MG/2.5 ML NEB NEB SCH ×6 (00:58→19:46)
[2016-09-22 08:06] LABS: AUTOMATED NEUTROPHIL # 4.1 TH/MM3 (1.8-7.7); BASOPHIL # 0.1 TH/MM3 (0-0.2); BASOPHIL % 1.2 % (0.0-2.0); EOSINOPHIL # 0.8 TH/MM3 (0-0.4); EOSINOPHIL % 11.7 % (0.0-4.0); HEMATOCRIT 33.5 % (35.0-46.0); HEMO FLAGS DIFF FINAL; LYMPH % 17.1 % (9.0-44.0); LYMPHOCYTE # 1.1 TH/MM3 (1.0-4.8); MEAN CELL VOLUME 85.5 FL (80.0-100.0); MEAN CORPUSCULAR HEMOGLOBIN 27.2 PG (27.0-34.0); MEAN CORPUSCULAR HGB CONC 31.9 % (32.0-36.0); MONO % 8.4 % (0.0-8.0); NEUT % 61.6 % (16.0-70.0); PLATELET COUNT 256 TH/MM3 (150-450); RED BLOOD COUNT 3.91 MIL/MM3 (4.00-5.30); RED CELL DISTRIBUTION WIDTH 15.3 % (11.6-17.2); WHITE BLOOD COUNT 6.7 TH/MM3 (4.0-11.0)
[2016-09-22] MEDS: PATIENT OWN MEDICATION NASAL SCH ×2 (08:09→17:16)
[2016-09-22 08:22] LABS: APTT (PATIENT) 25.8 SEC (24.3-30.1); PROTHROMBIN TIME - PATIENT 10.5 SEC (9.8-11.6)
[2016-09-22 08:25] LABS: ALKALINE PHOSPHATASE 41 U/L (45-117); ALT (GPT) 13 U/L (10-53); ANION GAP 8 MEQ/L (5-15); AST (GOT) 11 U/L (15-37); BICARBONATE 26.3 MEQ/L (21.0-32.0); BLOOD UREA NITROGEN 14 MG/DL (7-18); CHLORIDE 109 MEQ/L (98-107); GLOMERULAR FILTRATION RATE 66 ML/MIN (>89); POTASSIUM 3.7 MEQ/L (3.5-5.1); SODIUM (NA) 143 MEQ/L (136-145); TOTAL BILIRUBIN ADULT 0.4 MG/DL (0.2-1.0)
[2016-09-22] MEDS: GABAPENTIN 300 MG CAP PO SCH ×3 (08:42→21:48)
[2016-09-22] MEDS: HYDROXYCHLOROQUINE SULFATE 200 MG TAB PO SCH ×2 (08:43→21:48)
[2016-09-22] MEDS: CHOLECALCIFEROL (VIT D3) 1000 UNIT TAB PO SCH (08:44)
[2016-09-22] MEDS: TOLTERODINE TARTRATE 4 MG CAP LA PO SCH (08:45)
[2016-09-22] MEDS: PANTOPRAZOLE SOD 20 MG DELAYED RELEASE TAB PO SCH (08:46)
[2016-09-22] MEDS: VITAMIN B COMPLEX/VIT C TAB PO SCH (08:46)
[2016-09-22] MEDS: cloNIDine HCL 0.2 MG TAB PO SCH ×3 (08:47→18:29)
[2016-09-22] MEDS: POTASSIUM CHLORIDE 20 MEQ CONTROLLED RELEASE TAB PO SCH (08:47)
[2016-09-22] MEDS: FUROSEMIDE 40 MG TAB PO SCH (08:47)
[2016-09-22] MEDS: TERIFLUNOMIDE 14 MG PO SCH (08:48)
[2016-09-22] MEDS: ASPIRIN 325 MG TAB PO SCH (08:48)
[2016-09-22] MEDS: NIFEdipine 60 MG SUSTAINED RELEASE TAB PO SCH (08:48)
[2016-09-22] MEDS: METHENAMINE HIPPURATE 1 GM PO SCH ×2 (08:49→21:48)
[2016-09-22] MEDS: SODIUM CHLORIDE 0.9% FLUSH 10 ML FLUSH IV FLUSH SCH ×2 (08:49→21:49)
[2016-09-22] MEDS: diphenhydrAMINE HCL 50 MG/ML VIAL IV PUSH PRN (08:57)
[2016-09-22] MEDS: SODIUM CHLOR 0.9% 1000 ML IV SCH (09:00)
[2016-09-22] MEDS ORDERED: SODIUM CHLORIDE 0.9% 10 ML FLUSH IV FLUSH PRN (09:00)
--- NOTE | 2016-09-22 10:43 | PD.ONC.PN ---
Subjective Subjective Remarks Afebrile overnight. Patient resting in bed, receiving plasma exchange. She feels the plasma exchange has made her arms and legs stronger. Denies bleeding. Objective Data Date Time Temp Pulse Resp B/P Pulse Ox O2 Delivery O2 Flow Rate FiO2 09/22/16 08:10 97.0 105 20 100/50 84 09/22/16 08:09 21 09/22/16 04:00 97.3 95 18 125/74 97 09/22/16 00:00 97.0 81 18 133/67 100 09/21/16 23:32 88 09/21/16 21:44 97 21 09/21/16 20:00 97.3 93 18 135/69 100 09/21/16 18:04 97.0 90 22 123/73 98 09/21/16 12:18 97.0 83 20 111/67 97 09/22/16 09/22/16 09/22/16 07:00 15:00 23:00 Intake Total 360 ml Output Total 700 ml Balance -340 ml Result Diagram: 09/22/1618 09/22/1618 Laboratory Results Laboratory Tests Test 09/22/16 07:18 White Blood Count 6.7 TH/MM3 Red Blood Count 3.91 MIL/MM3 Hemoglobin 10.7 GM/DL Hematocrit 33.5 % Mean Corpuscular Volume 85.5 FL Mean Corpuscular Hemoglobin 27.2 PG Mean Corpuscular Hemoglobin 31.9 % Concent Red Cell Distribution Width 15.3 % Platelet Count 256 TH/MM3 Mean Platelet Volume 8.6 FL Neutrophils (%) (Auto) 61.6 % Lymphocytes (%) (Auto) 17.1 % Monocytes (%) (Auto) 8.4 % Eosinophils (%) (Auto) 11.7 % Basophils (%) (Auto) 1.2 % Neutrophils # (Auto) 4.1 TH/MM3 Lymphocytes # (Auto) 1.1 TH/MM3 Monocytes # (Auto) 0.6 TH/MM3 Eosinophils # (Auto) 0.8 TH/MM3 Basophils # (Auto) 0.1 TH/MM3 CBC Comment DIFF FINAL Differential Comment Prothrombin Time 10.5 SEC Prothromb Time International 1.0 RATIO Ratio Activated Partial 25.8 SEC Thromboplast Time Fibrinogen 164 mg/dL Sodium Level 143 MEQ/L Potassium Level 3.7 MEQ/L Chloride Level 109 MEQ/L Carbon Dioxide Level 26.3 MEQ/L Anion Gap 8 MEQ/L Blood Urea Nitrogen 14 MG/DL Creatinine 1.03 MG/DL Estimat Glomerular Filtration 66 ML/MIN Rate Random Glucose 136 MG/DL Calcium Level 9.7 MG/DL Total Bilirubin 0.4 MG/DL Aspartate Amino Transf 11 U/L (AST/SGOT) Alanine Aminotransferase 13 U/L (ALT/SGPT) Alkaline Phosphatase 41 U/L Total Protein 6.0 GM/DL Albumin 4.4 GM/DL Administered Medications Medications (Trade) Dose Ordered Sig/Sury Route PRN Reason Start Time Stop Time Status Last Admin Dose Admin Sodium Chloride (NS Flush) 2 ml BID IV FLUSH 09/11/16 21:00 09/22/16 08:49 Ondansetron HCl (Zofran Inj) 4 mg Q6H PRN IVP NAUSEA OR VOMITING 09/11/16 18:00 09/16/16 15:45 Magnesium Hydroxide (Milk Of Magnesia Liq) 30 ml Q12HR PRN PO CONSTIPATION 09/11/16 21:00 09/19/16 17:24 Aspirin (Aspirin) 325 mg DAILY PO 09/12/16 09:00 09/22/16 08:48 Clonidine (Catapres) 0.2 mg TID PO 09/11/16 18:00 09/21/16 21:37 Furosemide (Lasix) 40 mg DAILY PO 09/12/16 09:00 09/21/16 08:24 Gabapentin (Neurontin) 300 mg DAILY@1300 PO 09/12/16 13:00 09/21/16 13:25 Gabapentin (Neurontin) 600 mg BID PO 09/11/16 21:00 09/22/16 08:42 Hydromorphone HCl (Dilaudid) 4 mg Q8H PRN PO Pain Management 09/11/16 15:00 09/21/16 08:44 Hydroxychloroquine Sulfate (Plaquenil) 200 mg BID PO 09/11/16 21:00 09/22/16 08:43 Nifedipine (Procardia) 30 mg HS PO 09/11/16 21:00 09/21/16 21:39 Nifedipine (Procardia Xl) 60 mg DAILY PO 09/12/16 09:00 09/21/16 08:23 Pantoprazole Sodium (Protonix) 20 mg DAILY PO 09/11/16 15:00 09/22/16 08:46 Potassium Chloride (KCl) 20 meq DAILY PO 09/12/16 09:00 09/22/16 08:47 Vitamin B Complex/ Vitamin C (Allbee C) 1 tab DAILY PO 09/12/16 09:00 09/22/16 08:46 Cholecalciferol (Vitamin D3) 1,000 units DAILY PO 09/12/16 09:00 09/22/16 08:44 Tolterodine Tartrate (Detrol La) 4 mg DAILY PO 09/12/16 09:00 09/22/16 08:45 Patient Own Medication PT OWN MED: AUBA... DAILY PO 09/15/16 13:00 09/22/16 08:48 Patient Own Medication 1 ea BID PO 09/15/16 21:00 09/21/16 08:24 Diphenhydramine HCl (Benadryl Inj) 25 mg UNSCH PRN IV PUSH ALLERGIC REACTION 09/22/16 09:00 09/24/16 23:59 09/22/16 08:57 Objective Remarks GENERAL: Middle aged female, sitting up in bed working on phone. SKIN: Warm and dry. perma-cath, left chest wall HEAD: Normocephalic. EYES: No injection or drainage. NECK: Supple, trachea midline. CARDIOVASCULAR: Regular rate and rhythm RESPIRATORY: Breath sounds equal bilaterally. No accessory muscle use. GASTROINTESTINAL: Abdomen soft, non-tender, nondistended. EXTREMITIES: No cyanosis NEUROLOGICAL: awake and alert, normal speech. minimal movement in lower extremities. good movement in upper extremities. Assessment/Plan Problem List: (1) Multiple sclerosis Status: Chronic Plan: 09/22: PEX #6. fibrinogen slightly low but remains above 100. will monitor for bleeding. 09/20: PEX #5 today. two additional PEX ordered as requested by neurology for and 09/24 09/18. Continue on pheresis #4 and #5 as scheduled. Tolerated pheresis well today. Feels stronger but unable to weight bear, could not work with PT today. Worried about HR elevation earlier, bedside pulse ox show HR 86 which is normal. --plasma exchange 09/12, 09/14 and 09/16 Hx/Workup: Pt is well known to Dr Suggs with long history of multiple sclerosis. She currently takes Aubagio. She has been receiving plasmapheresis to complement her therapy. Last one was about 4 weeks ago. Most recently she has steven having problems with headaches and this prompted her to call EMS. Assessment 61 y/o female with multiple sclerosis exacerbation getting plasmapheresis. Plan 1. 6th pheresis today 2. monitor CBC, coags, albumin Attending Statement The exam, history, and the medical decision-making described in the above note were completed with the assistance of the mid-level provider. I reviewed and agree with the findings presented. I attest that I had a [id number] encounter with the patient on the same day, and personally performed and documented my assessment and findings in the medical record. Pt seen and examined at start of pheresis. Reassures me that she is responding to pheresis well. Subjective improvement is certain. Noted mild anemia. Continue tx with last #7 on Friday. ySbil Banks September 22, 2016 10:43 Beatriz Trevino MD September 22, 2016 15:21
[2016-09-22] MEDS: HEPARIN SODIUM - 10,000 UNITS/ML 1ML VIAL IV FLUSH PRN (10:54)
[2016-09-22] MEDS: ALBUMIN HUMAN 5% 25 GM/500 ML BOTTLE IV SCH (10:54)
[2016-09-22] MEDS: ANTICOAGULANT CITRATE DEXTROSE SOLN-A 1L OTHER SCH (10:54)
[2016-09-22] MEDS: CALCIUM GLUCONATE INJ 4 GM in SODIUM CHLOR 0.9% 250 ML INJ 200 ML IV SCH (10:55)
--- NOTE | 2016-09-22 13:59 | HHI.PR ---
Subjective Remarks c/o intermittent palpitation also noted some mild blood around her spc no blood in golden bag Objective Vitals heart reg lung cta abd s/nt ext no edema spc..no blood around the tube urine yellow. no blood. Vital Signs Date Time Temp Pulse Resp B/P Pulse Ox O2 Delivery O2 Flow Rate FiO2 09/22/16 12:37 97.4 83 20 131/68 96 09/22/16 11:18 87 09/22/16 08:10 97.0 105 20 100/50 94 09/22/16 08:09 21 09/22/16 04:00 97.3 95 18 125/74 97 09/22/16 00:00 97.0 81 18 133/67 100 09/21/16 23:32 88 09/21/16 21:44 97 21 09/21/16 20:00 97.3 93 18 135/69 100 09/21/16 18:04 97.0 90 22 123/73 98 09/21/16 09/21/16 09/22/16 14:59 22:59 06:59 Intake Total 240 ml 360 ml Output Total 1200 ml 700 ml Balance -960 ml -340 ml Intake Oral 240 ml 360 ml Output Urine Total 1200 ml 700 ml Result Diagram: 09/22/16 0718 09/22/16 0718 Imaging Last Impressions Tube Placement X-Ray 09/13/16 0000 Signed Impressions: Service Date/Time: Tuesday, September 13, 2016 16:37 - CONCLUSION: Uncomplicated suprapubic catheter exchange. Fran Capellan MD Chest X-Ray 09/11/16 1403 Signed Impressions: Service Date/Time: Sunday, September 11, 2016 14:23 - CONCLUSION: 1. Dialysis catheter is in good position. 2. Compensated cardiomegaly. Fabien Sterling MD FACR Abdomen/Pelvis CT 09/11/16 1108 Signed Impressions: Service Date/Time: Sunday, September 11, 2016 13:45 - CONCLUSION: 1. No acute inflammatory process. 2. Status post cholecystectomy. Sky Pereira MD A/P Problem List: (1) Multiple sclerosis Status: Chronic Plan: - Pt admitted with increased generalized weakness over the last week, worsening UE/hand weakness and unable to get herself out of bed for the last few days. - She has progressive Multiple Sclerosis and has been intolerant of prior multiple sclerosis disease modifying agents - Pt has been receiving outpt plasmapheresis, more recently she had been getting plasmapheresis weekly. Her last session with Dr. Trevino was on 08/06. - Plasmapheresis 09/12, 09/14, 09/16, 09/18 and 09/20, 09/22 - Because of the persistent weakness, Neurology recommending continuing pheresis for a total of 7 treatments. She will receive another treatment 09/24. - DVT prophylaxis -placed on telemetry for palpitaton complaints. -also she c/o intermittent blood around the spc..I have looked for 2 days in a row and don't see any blood on my evaluation. She is requesting IR re-evaluate it on Friday. (2) Generalized weakness Status: Acute Plan: -see above (3) Pyuria Status: Chronic Plan: - Pt with chronic indwelling suprapubic catheter and hx of complicated UTIs and MDR organisms - Pts UA was abnormal. - Culture shows mixed jay - Pt was given a dose of Rocephin in the ED. - She has not had any fever and a noted normal WBC count. - Suprapubic catheter was exchanged on 09/13 (4) Chronic indwelling Golden catheter Status: Chronic Plan: - See above. (5) Essential hypertension Status: Chronic Plan: - Home meds continued - Monitor (6) Lupus (systemic lupus erythematosus) Status: Chronic Plan: - Cont. Plaquenil (7) Fibromyalgia Status: Chronic Alex Morales MD September 22, 2016 13:59
[2016-09-22] MEDS ORDERED: cloNIDine HCL 0.1 MG TAB PO PRN (16:30)
[2016-09-22] MEDS: NIFEdipine 10 MG CAP PO SCH (21:48)
[2016-09-22] MEDS: HYDROmorphone HCL 4 MG TAB PO PRN (21:58)
[2016-09-23] VITALS (9 sets, daily range): BP systolic 115–132; BP diastolic 62–76; PULSE 79–95; RESP 17–20; TEMP 96.7–98; O2SAT 97–99
[2016-09-23] MEDS: RESP: IPRATROPIUM 0.5 MG/2.5 ML NEB NEB SCH ×7 (00:03→23:47)
[2016-09-23] MEDS: PATIENT OWN MEDICATION NASAL SCH ×2 (08:21→20:45)
[2016-09-23] MEDS: METHENAMINE HIPPURATE 1 GM PO SCH ×2 (09:00→23:26)
[2016-09-23] MEDS: SODIUM CHLORIDE 0.9% FLUSH 10 ML FLUSH IV FLUSH SCH ×2 (09:06→23:20)
[2016-09-23] MEDS: TERIFLUNOMIDE 14 MG PO SCH (09:07)
[2016-09-23] MEDS: PANTOPRAZOLE SOD 20 MG DELAYED RELEASE TAB PO SCH (09:08)
[2016-09-23] MEDS: GABAPENTIN 300 MG CAP PO SCH ×3 (09:08→23:19)
[2016-09-23] MEDS: VITAMIN B COMPLEX/VIT C TAB PO SCH (09:09)
[2016-09-23] MEDS: NIFEdipine 60 MG SUSTAINED RELEASE TAB PO SCH (09:09)
[2016-09-23] MEDS: TOLTERODINE TARTRATE 4 MG CAP LA PO SCH (09:09)
[2016-09-23] MEDS: POTASSIUM CHLORIDE 20 MEQ CONTROLLED RELEASE TAB PO SCH (09:09)
[2016-09-23] MEDS: CHOLECALCIFEROL (VIT D3) 1000 UNIT TAB PO SCH (09:09)
[2016-09-23] MEDS: FUROSEMIDE 40 MG TAB PO SCH (09:09)
[2016-09-23] MEDS: HYDROXYCHLOROQUINE SULFATE 200 MG TAB PO SCH ×2 (09:09→23:19)
[2016-09-23] MEDS: ASPIRIN 325 MG TAB PO SCH (09:10)
[2016-09-23] MEDS: cloNIDine HCL 0.2 MG TAB PO SCH ×3 (09:10→17:41)
[2016-09-23 09:32] LABS: BICARBONATE 22.7 MEQ/L (21.0-32.0); MAGNESIUM 2.1 MG/DL (1.5-2.5); POTASSIUM 4.1 MEQ/L (3.5-5.1)
--- NOTE | 2016-09-23 13:09 | HHI.PR ---
Subjective Remarks No new complaints. Objective Vitals Vital Signs Date Time Temp Pulse Resp B/P Pulse Ox O2 Delivery O2 Flow Rate FiO2 09/23/16 12:00 96.9 83 18 129/62 98 09/23/16 08:27 98 Nasal Cannula 21 09/23/16 08:00 98.0 93 17 132/74 99 09/23/16 07:00 94 09/23/16 06:09 96.7 95 19 125/76 97 09/23/16 01:12 97.0 95 20 127/68 98 09/22/16 23:32 97 09/22/16 21:34 96.9 84 19 136/75 98 09/22/16 19:48 21 09/22/16 16:00 96.5 86 20 129/63 99 09/22/16 09/22/16 09/23/16 14:59 22:59 06:59 Intake Total 720 ml Output Total 625 ml Balance 95 ml Intake Oral 720 ml Output Urine Total 625 ml Result Diagram: 09/22/16 0718 09/23/16 0741 Imaging Last Impressions Tube Placement X-Ray 09/13/16 0000 Signed Impressions: Service Date/Time: Tuesday, September 13, 2016 16:37 - CONCLUSION: Uncomplicated suprapubic catheter exchange. Fran Capellan MD Chest X-Ray 09/11/16 1403 Signed Impressions: Service Date/Time: Sunday, September 11, 2016 14:23 - CONCLUSION: 1. Dialysis catheter is in good position. 2. Compensated cardiomegaly. Fabien Sterling MD FACR Abdomen/Pelvis CT 09/11/16 1108 Signed Impressions: Service Date/Time: Sunday, September 11, 2016 13:45 - CONCLUSION: 1. No acute inflammatory process. 2. Status post cholecystectomy. Sky Pereira MD Objective Remarks GENERAL: This is a well-nourished, well-developed patient, in no apparent distress. CARDIOVASCULAR: Regular rate and rhythm without murmurs, gallops, or rubs. RESPIRATORY: Clear to auscultation. Breath sounds equal bilaterally. No wheezes , rales, or rhonchi. GASTROINTESTINAL: Abdomen soft, non-tender, nondistended. Normal active bowel sounds MUSCULOSKELETAL: Extremities without clubbing, cyanosis, or edema. NEURO: Alert & Oriented x4 to person, place, time, situation. Moves all ext x4 A/P Problem List: (1) Multiple sclerosis Status: Chronic Plan: - Pt admitted with increased generalized weakness over the last week, worsening UE/hand weakness and unable to get herself out of bed for the last few days. - She has progressive Multiple Sclerosis and has been intolerant of prior multiple sclerosis disease modifying agents - Pt has been receiving outpt plasmapheresis, more recently she had been getting plasmapheresis weekly. Her last session with Dr. Trevino was on 08/06. - Plasmapheresis 09/12, 09/14, 09/16, 09/18 and 09/20, 09/22 - Because of the persistent weakness, Neurology recommending continuing pheresis for a total of 7 treatments. She will receive another treatment 09/24. - DVT prophylaxis -placed on telemetry for palpitaton complaints. 09/23/16 - telemetry --> NSR - consult to IR to reasses suprapubic catheter. Per pt occasional blood - anticipate d/c to home with [facility] 09/24/16 after last plasmapheresis session. - Neurology recommends SNF and I agree. However, pt has been adamant that she will NOT go to SNF. (2) Generalized weakness Status: Acute Plan: -see above (3) Pyuria Status: Chronic Plan: - Pt with chronic indwelling suprapubic catheter and hx of complicated UTIs and MDR organisms - Pts UA was abnormal. - Culture shows mixed jay - Pt was given a dose of Rocephin in the ED. - She has not had any fever and a noted normal WBC count. - Suprapubic catheter was exchanged on 09/13 (4) Chronic indwelling Mendoza catheter Status: Chronic Plan: - See above. (5) Essential hypertension Status: Chronic Plan: - Home meds continued - Monitor (6) Lupus (systemic lupus erythematosus) Status: Chronic Plan: - Cont. Plaquenil (7) Fibromyalgia Status: Chronic Jan Stevens DO September 23, 2016 13:09
--- NOTE | 2016-09-23 13:11 | HHI.FF ---
Face to Face Verification Diagnosis: (1) Multiple sclerosis (2) Fibromyalgia (3) Lupus (systemic lupus erythematosus) (4) Impaired mobility and activities of daily living (5) Suprapubic catheter dysfunction (6) Hypertension Physical Therapy Order: Evaluate and Treat, Improve ambulation, Strength and gait training I have seen patient Angie Montez on 09/23/16. My clinical findings support the need for the requested home health care services because: Ltd mobility - disease progression Deconditioned w/ increased weakness Med compliance is questionable Limited ability to care for self Need for psychosocial assistance Infection w/ risk of complications I certify that my clinical findings support that this patient is homebound because: Impaired cognitive ability/safety Unsteady gait/balance Unsafe to leave home unassisted Need for psychosocial assistance [id number] bed/chair Unable to use public transportation Jan Stevens DO September 23, 2016 13:10
--- NOTE | 2016-09-23 17:26 | HHI.PR ---
Review/Management Diagnosis Multiple Sclerosis exacerbation Plan Finish last pheresis tomorrow I feel patient would benefit from in patient rehab after plasma pheresis Diagnosis/Plan: Subjective Subjective Comments No acute events reported tomorrow is pheresis #7. She feels is making some progress in LE strength with the additional phereses Active Medications Current Medications Medications (Trade) Dose Ordered Sig/Sury Route Start Time Stop Time Status Last Admin (NS Flush) 2 ml UNSCH PRN IV FLUSH 09/11/16 14:15 (NS Flush) 2 ml BID IV FLUSH 09/11/16 21:00 09/23/16 09:06 (Tylenol) 650 mg Q4H PRN PO 09/11/16 14:15 (Zofran Inj) 4 mg Q6H PRN IVP 09/11/16 18:00 09/16/16 15:45 (Milk Of Magnesia Liq) 30 ml Q12HR PRN PO 09/11/16 21:00 09/19/16 17:24 (Narcan Inj) 0.4 mg UNSCH PRN IV 09/11/16 14:15 (Aspirin) 325 mg DAILY PO 09/12/16 09:00 09/23/16 09:10 (Catapres) 0.2 mg TID PO 09/11/16 18:00 09/23/16 12:27 (Lasix) 40 mg DAILY PO 09/12/16 09:00 09/23/16 09:09 (Neurontin) 300 mg DAILY@1300 PO 09/12/16 13:00 09/23/16 12:27 (Neurontin) 600 mg BID PO 09/11/16 21:00 09/23/16 09:08 (Dilaudid) 4 mg Q8H PRN PO 09/11/16 15:00 09/22/16 21:58 (Plaquenil) 200 mg BID PO 09/11/16 21:00 09/23/16 09:09 (Procardia) 30 mg HS PO 09/11/16 21:00 09/22/16 21:48 (Procardia Xl) 60 mg DAILY PO 09/12/16 09:00 09/23/16 09:09 (Protonix) 20 mg DAILY PO 09/11/16 15:00 09/23/16 09:08 (KCl) 20 meq DAILY PO 09/12/16 09:00 09/23/16 09:09 (Allbee C) 1 tab DAILY PO 09/12/16 09:00 09/23/16 09:09 (Vitamin D3) 1,000 units DAILY PO 09/12/16 09:00 09/23/16 09:09 (Detrol La) 4 mg DAILY PO 09/12/16 09:00 09/23/16 09:09 Patient Own Medication PT OWN MED: AUBA... DAILY PO 09/15/16 13:00 09/23/16 09:07 Patient Own Medication 1 ea BID PO 09/15/16 21:00 09/23/16 09:00 (Benadryl Inj) 25 mg UNSCH PRN IV PUSH 09/22/16 09:00 09/24/16 23:59 09/22/16 08:57 (NS Flush) 10 ml UNSCH PRN IV FLUSH 09/22/16 09:00 09/24/16 23:59 (Heparin Inj) 5,000 units UNSCH PRN IV FLUSH 09/22/16 09:00 09/24/16 23:59 09/22/16 10:54 (Catapres) 0.1 mg Q4H PRN PO 09/22/16 16:30 Allergies Allergies Coded Allergies Adhesives (Verified Allergy, Severe, Rash, 09/11/16) Albuterol (Verified Allergy, Severe, SORES, 09/11/16) Codeine (Verified Allergy, Severe, SWELLING AND DIFFICULTY BREATHING, 09/11/16) Dynacirc (Verified Allergy, Severe, ELEVATED HEART RATE, 09/11/16) Lortab (Verified Allergy, Severe, RASH AND SWELLING, 09/11/16) Percocet (Verified Allergy, Severe, ITCHING, 09/11/16) Solu-Medrol (Verified Allergy, Severe, Shortness of Breath, 09/11/16) *MDRO Multi-Drug Resistant Organism (Verified Adverse Reaction, Unknown, ) Review of Systems All other ROS: ROS reviewed as documented in chart Exam I&O / VS 09/22/16 09/22/16 09/23/16 15:00 23:00 07:00 Intake Total 720 ml Output Total 625 ml Balance 95 ml Intake Oral 720 ml Output Urine Total 625 ml Vital Signs Date Time Temp Pulse Resp B/P Pulse Ox O2 Delivery O2 Flow Rate FiO2 09/23/16 16:00 97.5 79 18 115/67 98 09/23/16 12:00 96.9 83 18 129/62 98 09/23/16 08:27 98 Nasal Cannula 21 09/23/16 08:00 98.0 93 17 132/74 99 09/23/16 07:00 94 09/23/16 06:09 96.7 95 19 125/76 97 09/23/16 01:12 97.0 95 20 127/68 98 09/22/16 23:32 97 09/22/16 21:34 96.9 84 19 136/75 98 09/22/16 19:48 21 General: Alert and Oriented, No acute distress Eye: PERRL, EOMI Respiratory: Lungs CTA, Non-labored respirations, BS equal Cardiology: Normal rate, Regular Rhythm Musculoskeletal: ROM Neurologic: Alert, Oriented Psychiatric: Cooperative, Appropriate mood & affect Exam Comments alert, speech normal 'CN 2-12 normal MOTOR--5/5 BUE, 4/5 BLE Objective Micro and Labs Laboratory Tests Test 09/23/16 07:41 Sodium Level 142 Potassium Level 4.1 Chloride Level 112 Carbon Dioxide Level 22.7 Anion Gap 7 Blood Urea Nitrogen 12 Creatinine 0.94 Estimat Glomerular Filtration 73 Rate Random Glucose 111 Calcium Level 9.4 Phosphorus Level 2.9 Magnesium Level 2.1 Ameya Suggs. PhD MD September 23, 2016 17:26
[2016-09-23] MEDS: NIFEdipine 10 MG CAP PO SCH (23:19)
[2016-09-23] MEDS: HYDROmorphone HCL 4 MG TAB PO PRN (23:31)
[2016-09-24] VITALS (7 sets, daily range): BP systolic 97–146; BP diastolic 62–82; PULSE 89–104; RESP 17–20; TEMP 97.1–98.6; O2SAT 95–100
[2016-09-24] MEDS: RESP: IPRATROPIUM 0.5 MG/2.5 ML NEB NEB SCH ×5 (03:28→20:07)
[2016-09-24] MEDS: PATIENT OWN MEDICATION NASAL SCH (07:53)
[2016-09-24] MEDS: POTASSIUM CHLORIDE 20 MEQ CONTROLLED RELEASE TAB PO SCH (08:43)
[2016-09-24] MEDS: CHOLECALCIFEROL (VIT D3) 1000 UNIT TAB PO SCH (08:43)
[2016-09-24] MEDS: NIFEdipine 60 MG SUSTAINED RELEASE TAB PO SCH (08:43)
[2016-09-24] MEDS: ASPIRIN 325 MG TAB PO SCH (08:43)
[2016-09-24] MEDS: HYDROXYCHLOROQUINE SULFATE 200 MG TAB PO SCH (08:43)
[2016-09-24] MEDS: TOLTERODINE TARTRATE 4 MG CAP LA PO SCH (08:43)
[2016-09-24] MEDS: FUROSEMIDE 40 MG TAB PO SCH (08:43)
[2016-09-24] MEDS: cloNIDine HCL 0.2 MG TAB PO SCH ×3 (08:43→17:33)
[2016-09-24] MEDS: VITAMIN B COMPLEX/VIT C TAB PO SCH (08:44)
[2016-09-24] MEDS: HEPARIN SODIUM - 10,000 UNITS/ML 1ML VIAL IV FLUSH PRN (08:46)
[2016-09-24] MEDS: ALBUMIN HUMAN 5% 25 GM/500 ML BOTTLE IV SCH (08:47)
[2016-09-24] MEDS: ANTICOAGULANT CITRATE DEXTROSE SOLN-A 1L OTHER SCH (08:48)
[2016-09-24] MEDS: SODIUM CHLOR 0.9% 1000 ML IV SCH (08:50)
[2016-09-24] MEDS: METHENAMINE HIPPURATE 1 GM PO SCH (08:51)
[2016-09-24] MEDS: SODIUM CHLORIDE 0.9% FLUSH 10 ML FLUSH IV FLUSH SCH (08:51)
[2016-09-24] MEDS: TERIFLUNOMIDE 14 MG PO SCH (08:52)
[2016-09-24] MEDS: CALCIUM GLUCONATE INJ 4 GM in SODIUM CHLOR 0.9% 250 ML INJ 200 ML IV SCH (08:57)
[2016-09-24] MEDS: PANTOPRAZOLE SOD 20 MG DELAYED RELEASE TAB PO SCH (08:57)
[2016-09-24] MEDS: GABAPENTIN 300 MG CAP PO SCH ×2 (08:57→15:10)
[2016-09-24] MEDS: HYDROmorphone HCL 4 MG TAB PO PRN (09:11)
[2016-09-24 10:28] LABS: AUTOMATED NEUTROPHIL # 4.8 TH/MM3 (1.8-7.7); BASOPHIL % 0.7 % (0.0-2.0); EOSINOPHIL # 0.7 TH/MM3 (0-0.4); EOSINOPHIL % 9.7 % (0.0-4.0); HEMATOCRIT 31.5 % (35.0-46.0); HEMO FLAGS DIFF FINAL; LYMPH % 14.6 % (9.0-44.0); MEAN CELL VOLUME 85.4 FL (80.0-100.0); MEAN CORPUSCULAR HEMOGLOBIN 27.7 PG (27.0-34.0); MEAN CORPUSCULAR HGB CONC 32.4 % (32.0-36.0); MONO % 7.5 % (0.0-8.0); NEUT % 67.5 % (16.0-70.0); PLATELET COUNT 276 TH/MM3 (150-450); RED BLOOD COUNT 3.69 MIL/MM3 (4.00-5.30); RED CELL DISTRIBUTION WIDTH 15.6 % (11.6-17.2); WHITE BLOOD COUNT 7.1 TH/MM3 (4.0-11.0)
[2016-09-24 10:50] LABS: APTT (PATIENT) 25.5 SEC (24.3-30.1); PROTHROMBIN TIME - PATIENT 10.6 SEC (9.8-11.6)
--- NOTE | 2016-09-24 11:20 | PD.ONC.PN ---
Subjective Subjective Remarks Afebrile overnight. Patient resting comfortably in room. She has a cough productive of sputum today. No bleeding. Feels the plasma exchange is making her stronger. Objective Data Date Time Temp Pulse Resp B/P Pulse Ox O2 Delivery O2 Flow Rate FiO2 09/24/16 08:35 98.6 89 20 143/77 100 09/24/16 06:18 97.2 104 18 120/74 97 09/24/16 00:55 97.6 94 20 146/78 98 09/23/16 22:11 97.5 95 20 122/62 97 09/23/16 16:00 97.5 79 18 115/67 98 09/23/16 15:00 79 09/23/16 12:00 96.9 83 18 129/62 98 Result Diagram: 09/24/16 1018 09/23/16 0741 Laboratory Results Laboratory Tests Test 09/24/16 10:18 White Blood Count 7.1 TH/MM3 Red Blood Count 3.69 MIL/MM3 Hemoglobin 10.2 GM/DL Hematocrit 31.5 % Mean Corpuscular Volume 85.4 FL Mean Corpuscular Hemoglobin 27.7 PG Mean Corpuscular Hemoglobin 32.4 % Concent Red Cell Distribution Width 15.6 % Platelet Count 276 TH/MM3 Mean Platelet Volume 8.5 FL Neutrophils (%) (Auto) 67.5 % Lymphocytes (%) (Auto) 14.6 % Monocytes (%) (Auto) 7.5 % Eosinophils (%) (Auto) 9.7 % Basophils (%) (Auto) 0.7 % Neutrophils # (Auto) 4.8 TH/MM3 Lymphocytes # (Auto) 1.0 TH/MM3 Monocytes # (Auto) 0.5 TH/MM3 Eosinophils # (Auto) 0.7 TH/MM3 Basophils # (Auto) 0.0 TH/MM3 CBC Comment DIFF FINAL Differential Comment Prothrombin Time 10.6 SEC Prothromb Time International 1.0 RATIO Ratio Activated Partial 25.5 SEC Thromboplast Time Fibrinogen 189 mg/dL Administered Medications Medications (Trade) Dose Ordered Sig/Sury Route PRN Reason Start Time Stop Time Status Last Admin Dose Admin Sodium Chloride (NS Flush) 2 ml BID IV FLUSH 09/11/16 21:00 09/24/16 08:51 Ondansetron HCl (Zofran Inj) 4 mg Q6H PRN IVP NAUSEA OR VOMITING 09/11/16 18:00 09/16/16 15:45 Magnesium Hydroxide (Milk Of Magnkalyn Liq) 30 ml Q12HR PRN PO CONSTIPATION 09/11/16 21:00 09/19/16 17:24 Aspirin (Aspirin) 325 mg DAILY PO 09/12/16 09:00 09/24/16 08:43 Clonidine (Catapres) 0.2 mg TID PO 09/11/16 18:00 09/24/16 08:43 Furosemide (Lasix) 40 mg DAILY PO 09/12/16 09:00 09/24/16 08:43 Gabapentin (Neurontin) 300 mg DAILY@1300 PO 09/12/16 13:00 09/23/16 12:27 Gabapentin (Neurontin) 600 mg BID PO 09/11/16 21:00 09/24/16 08:57 Hydromorphone HCl (Dilaudid) 4 mg Q8H PRN PO Pain Management 09/11/16 15:00 09/24/16 09:11 Hydroxychloroquine Sulfate (Plaquenil) 200 mg BID PO 09/11/16 21:00 09/24/16 08:43 Nifedipine (Procardia) 30 mg HS PO 09/11/16 21:00 09/23/16 23:19 Nifedipine (Procardia Xl) 60 mg DAILY PO 09/12/16 09:00 09/24/16 08:43 Pantoprazole Sodium (Protonix) 20 mg DAILY PO 09/11/16 15:00 09/24/16 08:57 Potassium Chloride (KCl) 20 meq DAILY PO 09/12/16 09:00 09/24/16 08:43 Vitamin B Complex/ Vitamin C (Allbee C) 1 tab DAILY PO 09/12/16 09:00 09/24/16 08:44 Cholecalciferol (Vitamin D3) 1,000 units DAILY PO 09/12/16 09:00 09/24/16 08:43 Tolterodine Tartrate (Detrol La) 4 mg DAILY PO 09/12/16 09:00 09/24/16 08:43 Patient Own Medication PT OWN MED: AUBA... DAILY PO 09/15/16 13:00 09/24/16 08:52 Patient Own Medication 1 ea BID PO 09/15/16 21:00 09/24/16 08:51 Diphenhydramine HCl (Benadryl Inj) 25 mg UNSCH PRN IV PUSH ALLERGIC REACTION 09/22/16 09:00 09/24/16 23:59 09/22/16 08:57 Heparin Sodium (Porcine) (Heparin Inj) 5,000 units UNSCH PRN IV FLUSH FLUSH AFTER USING IV ACCESS 09/22/16 09:00 09/24/16 23:59 09/24/16 08:46 Objective Remarks GENERAL: Middle aged female, sitting up in bed in nad. SKIN: Warm and dry. perma-cath, left chest wall HEAD: Normocephalic. EYES: No injection or drainage. NECK: Supple, trachea midline. CARDIOVASCULAR: Regular rate and rhythm RESPIRATORY: Breath sounds equal bilaterally. No accessory muscle use. GASTROINTESTINAL: Abdomen soft, non-tender, nondistended. EXTREMITIES: No cyanosis NEUROLOGICAL: aox3. normal speech. Assessment/Plan Problem List: (1) Multiple sclerosis Status: Chronic Plan: 09/24: last PEX today (#7). neurology following and referring patient to rehab. labs reviewed. 09/22: PEX #6. fibrinogen slightly low but remains above 100. will monitor for bleeding. 09/20: PEX #5 today. two additional PEX ordered as requested by neurology for and 09/24 09/18. Continue on pheresis #4 and #5 as scheduled. Tolerated pheresis well today. Feels stronger but unable to weight bear, could not work with PT today. Worried about HR elevation earlier, bedside pulse ox show HR 86 which is normal. --plasma exchange 09/12, 09/14 and 09/16 Hx/Workup: Pt is well known to Dr Suggs with long history of multiple sclerosis. She currently takes Aubagio. She has been receiving plasmapheresis to complement her therapy. Last one was about 4 weeks ago. Most recently she has steven having problems with headaches and this prompted her to call EMS. Assessment 61 y/o female with multiple sclerosis exacerbation getting plasmapheresis. Plan 1. 7th pheresis today 2. monitor CBC, coags, albumin Attending Statement The exam, history, and the medical decision-making described in the above note were completed with the assistance of the mid-level provider. I reviewed and agree with the findings presented. I attest that I had a [id number] encounter with the patient on the same day, and personally performed and documented my assessment and findings in the medical record. PT seen and examined. Stool up and took steps w/ PT today after last pheresis. Agree with rehab at [facility]. Coordinate w/ Dr. Suggs, maintenance pheresis as outpt. Sybil Banks September 24, 2016 11:20 Beatriz Trevino MD September 24, 2016 19:10
[2016-09-24] MEDS: diphenhydrAMINE HCL 50 MG/ML VIAL IV PUSH PRN (11:30)
--- NOTE | 2016-09-24 14:26 | HHI.FF ---
Face to Face Verification Diagnosis: (1) Multiple sclerosis (2) Lupus (systemic lupus erythematosus) (3) Fibromyalgia (4) Impaired mobility and activities of daily living (5) Hypertension Physical Therapy Order: Evaluate and Treat, Improve ambulation, Strength and gait training Home Health Nursing Order: Medical education Signs/symptoms of disease process Medication education-adverse effect Nursing assessment with vital signs I have seen patient Angie Montez on 09/24/16. My clinical findings support the need for the requested home health care services because: Ltd mobility - disease progression Med compliance is questionable Limited ability to care for self Need for psychosocial assistance I certify that my clinical findings support that this patient is homebound because: Unsteady gait/balance Unsafe to leave home unassisted Need for psychosocial assistance Unable to use public transportation Jan Stevens DO September 24, 2016 14:26
--- NOTE | 2016-09-24 14:45 | HHI.DS ---
Discharge Summary Admission Date September 11, 2016 at 14:08 Discharge Date: September 24, 2016 Admitting Diagnosis Multiple sclerosis exacerbation, UTI (1) Multiple sclerosis Diagnosis: Principal (2) Generalized weakness Diagnosis: Principal (3) Pyuria Diagnosis: Secondary (4) Chronic indwelling Mendoza catheter Diagnosis: Secondary (5) Essential hypertension Diagnosis: Secondary (6) Lupus (systemic lupus erythematosus) Diagnosis: Secondary (7) Fibromyalgia Diagnosis: Secondary Consultants Dr. Ameya Suggs, Neurology Brief History Mrs. Han is a pleasant 61 y/o AAF with multiple sclerosis undergoing weekly plasmapheresis, lupus, fibromyalgia, complicated UTIs and HTN presented to the ED at [facility] on 09/11/16 with multiple complaints. Pt states she has been having bilateral upper extremity weakness for the last week which is increased from her baseline weakness. SHe noted that she was dropping things, unable to write or hold a fork. Pt always has bilateral lower extremity weakness and uses a wheelchair. States she checked her BP this morning and it was elevated and normally she has headache and nausea with elevated blood pressure so she took her meds. Pt's BP was normalized in the ED and headache has improved. Pt also complains of mild chest pain but that has resolved as well. Pts lab work was fairly stable compared to previous labs. Her UA was abnormal and she has a suprapubic catheter which is typically exchanged monthly by her urologist. She has long hx of complicated UTI's and MDR infections. Pt was given Ceftriaxone 1gm IV in the ED. Her WBC count was normal and pt has been afebrile. CT abd/ pelvis showed no acute inflammatory process. The ED discussed the case with Dr. Suggs, the pts Neurologist, and since she is so weak that she has not been out of bed for days and usually responds to plasmapheresis, he recommended admission and consultation with Dr. Trevino for inpatient plasmapheresis and Neurology consultation. CBC/BMP: 09/24/16 1018 09/23/16 0741 Significant Findings Laboratory Tests Test 09/22/16 09/23/16 09/24/16 07:18 07:41 10:18 Red Blood Count 3.91 MIL/MM3 3.69 MIL/MM3 (4.00-5.30) (4.00-5.30) Hemoglobin 10.7 GM/DL 10.2 GM/DL (11.6-15.3) (11.6-15.3) Hematocrit 33.5 % 31.5 % (35.0-46.0) (35.0-46.0) Mean Corpuscular Hemoglobin 31.9 % Concent (32.0-36.0) Monocytes (%) (Auto) 8.4 % (0.0-8.0) Eosinophils (%) (Auto) 11.7 % 9.7 % (0.0-4.0) (0.0-4.0) Eosinophils # (Auto) 0.8 TH/MM3 0.7 TH/MM3 (0-0.4) (0-0.4) Fibrinogen 164 mg/dL 189 mg/dL (181-393) (227-377) Chloride Level 109 MEQ/L 112 MEQ/L (98-107) (98-107) Creatinine 1.03 MG/DL (0.50-1.00) Estimat Glomerular Filtration 66 ML/MIN (>89) 73 ML/MIN (>89) Rate Random Glucose 136 MG/DL 111 MG/DL (74-106) (74-106) Aspartate Amino Transf 11 U/L (15-37) (AST/SGOT) Alkaline Phosphatase 41 U/L (45-117) Total Protein 6.0 GM/DL (6.4-8.2) Imaging Last Impressions Tube Placement X-Ray 09/13/16 0000 Signed Impressions: Service Date/Time: Tuesday, September 13, 2016 16:37 - CONCLUSION: Uncomplicated suprapubic catheter exchange. Fran Capellan MD Chest X-Ray 09/11/16 1403 Signed Impressions: Service Date/Time: Sunday, September 11, 2016 14:23 - CONCLUSION: 1. Dialysis catheter is in good position. 2. Compensated cardiomegaly. Fabien Sterling MD FACR Abdomen/Pelvis CT 09/11/16 1108 Signed Impressions: Service Date/Time: Sunday, September 11, 2016 13:45 - CONCLUSION: 1. No acute inflammatory process. 2. Status post cholecystectomy. Sky Pereira MD PE at Discharge GENERAL: This is a well-nourished, well-developed patient, in no apparent distress. CARDIOVASCULAR: Regular rate and rhythm without murmurs, gallops, or rubs. RESPIRATORY: Clear to auscultation. Breath sounds equal bilaterally. No wheezes , rales, or rhonchi. GASTROINTESTINAL: Abdomen soft, non-tender, nondistended. Normal active bowel sounds MUSCULOSKELETAL: Extremities without clubbing, cyanosis, or edema. NEURO: Alert & Oriented x4 to person, place, time, situation. Moves all ext x4 Pt Condition on Discharge: Stable Discharge Disposition: Disch w/ Home Health Serv Discharge Instructions DIET: Follow Instructions for: Heart Healthy Diet Activities you can perform: Weight Bearing as [place] Follow up Referrals: Neurology - 2 Weeks with Ameya Suggs PhD MD PCP Follow-up with Dr. John Mann Continued Medications: Aspirin (Aspirin) 325 Mg Tab 325 MG PO DAILY #30 Ref 0 TAB B-Complex Vitamins (Vitamin B Complex) 1 Tab 1 TAB PO DAILY Cholecalciferol (D 56760) 10,000 Unit Cap 1 CAP PO DAILY Clonidine (Catapres) 0.2 Mg Tab 0.2 MG PO TID Blood Pressure Management #60 Ref 0 TAB Fesoterodine ER (Toviaz ER) 8 Mg Lou 8 MG PO DAILY Overactive bladder #30 Ref 0 TAB Furosemide (Furosemide) 40 Mg Tab 40 MG PO DAILY #30 Ref 0 TAB Gabapentin (Neurontin) 300 Mg Cap 600 MG PO BID peripheral neuropathy #62 CAP Gabapentin (Neurontin) 300 Mg Cap 300 MG PO DAILY@1300 peripheral neuropathy #31 CAP Hydromorphone (Dilaudid) 4 Mg Tab 4 MG PO Q8H PRN Pain Management #30 Ref 0 TAB Hydroxychloroquine (Plaquenil) 200 Mg Tab 200 MG PO BID Take with food #60 Ref 0 TAB Ipratropium Neb (Ipratropium Neb) 0.5 Mg/2.5 Ml Amp 0.5 MG NEB Q4HR NEB Breathing Treatment #30 Ref 0 NEBULE Lisinopril (Lisinopril) 20 Mg Tab 20 MG PO DAILY #30 Ref 0 TAB Methenamine Hippurate (Hiprex) 1 Gm Tab 1 GM PO BID Infection Ref 0 TAB Nifedipine (Nifedipine) 10 Mg Cap 30 MG PO HS HTN #120 Ref 0 CAP Nifedipine ER 24 HR (Procardia XL) 60 Mg Tab 60 MG PO DAILY #30 Ref 0 TAB Pantoprazole (Protonix) 20 Mg Tab 20 MG PO DAILY Reflux #30 Ref 0 TAB Potassium Chloride ER (Potassium Chloride ER) 20 Meq Tab 20 MEQ PO DAILY Electrolyte Replacement #30 Ref 0 TAB Teriflunomide (Aubagio) 14 Mg Tab 14 MG PO DAILY Multiple sclerosis #30 Ref 0 TAB Vitamins C & E (Cranberry Urinary Comfort) 1 Cap 1 CAP PO DAILY Urinary Symptom Managemen Ref 0 CAP Discontinued Medications: Ascorbic Acid (Vitamin C) 500 Mg Chew 500 MG CHEW DAILY Nutritional Supplement #30 Ref 0 TAB Cyanocobalamin (Vitamin B-12) 100 Mcg Tab 100 MCG PO DAILY #1 BOTTLE Jan Stevens DO September 24, 2016 14:45
--- NOTE | 2016-09-24 14:46 | HHI.DCPOC ---
Discharge Care Plan Diagnosis: (1) Multiple sclerosis (2) Suprapubic catheter dysfunction (3) Hypertension (4) Lupus (systemic lupus erythematosus) Goals to Promote Your Health * To prevent worsening of your condition and complications * To maintain your health at the optimal level Directions to Meet Your Goals Take your medications as prescribed Follow your dietary instruction Follow activity as directed Keep your appointments as scheduled Take your immunizations and boosters as scheduled If your symptoms worsen call your PCP, if no PCP go to Urgent Care Center or Emergency Room Smoking is Dangerous to Your Health. Avoid second hand smoke Call the 24-hour hour crisis hotline for domestic abuse at Jan Stevens DO September 24, 2016 14:46
[2016-09-24] MEDS ORDERED: DILA4TAB2 PO (16:17)
== END 2016-09-24 20:44 | DRG 59 ==
LOC: NEPE 10:19 → NEDA 14:08 → N05A 17:51
PROVIDERS: ADMIT Hospitalist; ATTEND Hospitalist
PROC: 6A551Z3 Pheresis of Plasma, Multiple (ICD-10-PCS; 2016-09-12)
PROC: 0T2BX0Z Change Drainage Device in Bladder, External Approach (ICD-10-PCS; principal; 2016-09-13)
DX: G35 Multiple sclerosis (principal); T83.090A Other mechanical complication of cystostomy catheter, initial encounter; M32.9 Systemic lupus erythematosus, unspecified; N39.0 Urinary tract infection, site not specified; I10 Essential (primary) hypertension; D64.9 Anemia, unspecified; R05 Cough; R09.81 Nasal congestion; M79.7 Fibromyalgia; M19.90 Unspecified osteoarthritis, unspecified site; F31.9 Bipolar disorder, unspecified; F41.9 Anxiety disorder, unspecified; Y73.2 Prosthetic and other implants, materials and accessory gastroenterology and urology devices associated with adverse incidents; Z88.5 Allergy status to narcotic agent; Z98.1 Arthrodesis status
CPT/HCPCS: 36514; 51705; 71010; 74177; 76937; 77002; 80048; 80053; 81001; 82550; 83690; 83735; 84100; 84484; 85025; 85384; 85610; 85730; 87086; 93005; 94640; 94664; 96365; 96375; C1769; J0610; J0696; J1200; J1644; J2060; J2405; J3010; J7030; J7050; J7644; P9045; Q9967

== ENCOUNTER 2016-10-30 09:19 | Day surgery (SDC) | payer MEDICARE ==
[2016-10-30] VITALS (7 sets, daily range): BP systolic 141–183; BP diastolic 89–98; PULSE 60–107; RESP 16–20; TEMP 98–98.2; O2SAT 92–97
[~2016-10-30] VITALS: Ht 168.9 cm; Wt 115.4 kg
[~2016-10-30 09:19] MED LIST changes: -VITA100T PO; -VITA500C9 CHEW
[2016-10-30] MEDS ORDERED: VANCOMYCIN 1000 MG/NS 250 ML - implanted port/tunneled catheter IV SCH ×2 (10:30)
[2016-10-30] MEDS ORDERED: ceFAZolin 2 GM PREMIX 50 ML - implanted port/tunneled catheter insertion IV SCH (10:30)
[2016-10-30] MEDS ORDERED: CEPH-460 PO (10:33)
[2016-10-30 11:20] LABS: AUTOMATED NEUTROPHIL # 3.2 TH/MM3 (1.8-7.7); BASOPHIL # 0.1 TH/MM3 (0-0.2); BASOPHIL % 1.1 % (0.0-2.0); EOSINOPHIL # 0.6 TH/MM3 (0-0.4); EOSINOPHIL % 10.4 % (0.0-4.0); HEMATOCRIT 33.6 % (35.0-46.0); HEMO FLAGS DIFF FINAL; LYMPH % 22.7 % (9.0-44.0); LYMPHOCYTE # 1.3 TH/MM3 (1.0-4.8); MEAN CELL VOLUME 83.3 FL (80.0-100.0); MEAN CORPUSCULAR HEMOGLOBIN 27.4 PG (27.0-34.0); MEAN CORPUSCULAR HGB CONC 32.9 % (32.0-36.0); MONO % 9.7 % (0.0-8.0); NEUT % 56.1 % (16.0-70.0); PLATELET COUNT 297 TH/MM3 (150-450); RED BLOOD COUNT 4.03 MIL/MM3 (4.00-5.30); RED CELL DISTRIBUTION WIDTH 14.3 % (11.6-17.2); WHITE BLOOD COUNT 5.7 TH/MM3 (4.0-11.0)
[2016-10-30 11:33] LABS: PROTHROMBIN TIME - PATIENT 10.7 SEC (9.8-11.6)
[2016-10-30] MEDS ORDERED: LIDOCAINE 1%/EPINEPHrine 1:100,000 SOLN 20 ML VIAL ONE (12:15)
[2016-10-30] MEDS ORDERED: MIDAZOLAM HCL 5 MG/5 ML VIAL ONE (12:17)
[2016-10-30] MEDS ORDERED: fentaNYL CITRATE 250 MCG/5 ML AMP ONE (12:18)
[2016-10-30] MEDS ORDERED: SODIUM CHLORIDE 0.9% FLUSH 10 ML FLUSH IVF PRN (13:30)
[2016-10-30] MEDS ORDERED: HEPARIN SODIUM - IV 2,000 UNITS/2 ML VIAL IV FLUSH PRN (13:30)
--- NOTE | 2016-10-30 13:30 | PD.RAD ---
Post Procedure Progress Note Pre Procedure Diagnosis: (1) Complications, dialysis, catheter, mechanical Post Procedure Diagnosis: (1) Complications, dialysis, catheter, mechanical Procedure Date: Oct 30, 2016 Supervising Radiologist: Samy Del Rio Proceduralist/Assist: Benita Hummel, RT(R), Jurgen Baca, RT(R) Anesthesia: Conscious Sedation Plan of Activity Patient to Unit: ROPU Patient Condition: Good Additional Comments: Removed left IJ HD cath and placed a new right IJ HD cath. See PACS Report for procedural detail/treatment Samy Del Rio MD Oct 30, 2016 13:30
--- NOTE | 2016-10-30 13:36 | RADRPT ---
EXAM DATE/TIME: 10/30/2016 00:00 [facility] COMPARISON: No previous studies available for comparison. INDICATIONS : Chronic left IJ tunneled dialysis catheter for plasmapheresis. The distal catheter tract is inflamed although it has more of a reaction appearance rather than infection. Additionally, the catheter arter ial port is malfunctioning. Therefore, decision was to remove the catheter in place a right-sided cat heter. MEDICAL HISTORY : Multiple sclerosis diagnosed in late 2012 requiring plasmapheresis periodically. Most recent plasmapheresis was March 2016. Fibromyalgia Bipolar disorder History of obesity Hypertension Lupus Fibromyalgia Gastroparesis Recurrent UTIs SURGICAL HISTORY : 2004 the patient had C3 through C6 anterior cervical discectomy and arthrodesis for severe cervical stenosis and myelopathy 2008 the patient had again the same diagnosis but had C6-C7 anterior cervical discectomy and arthrodesis 2010 the patient had open reduction, internal fixation of a right ankle fracture Right distal fibula fracture Torn lateral meniscus last year and underwent arthroscopic surgery Laparoscopic cholecystectomy Hysterectomy Suprapubic catheter placement PermCath placement ENCOUNTER: Subsequent ACUITY: 2 days PAIN SCORE: 5/10 LOCATION: Bilateral Back IMAGE SERIES: PROCEDURE : 1. PermaCath removal. The risks, benefits and alternatives to the procedure were explained and verbal and written consent w as obtained. The site was prepped in sterile fashion. Full sterile technique was used, including ca p, mask, sterile gloves and gown and a large sterile sheet. Hand hygiene and 2% chlorhexidine and/or betadine/alcohol prep was utilized per protocol for cutaneous antisepsis. The skin and subcutaneous tissues were infiltrated with local anesthetic solution. The tract was anesthetized with 1% Lidocaine using. The Permcath was dissected from the subcutaneous tissues and easily removed in one piece. Manual pressure was applied to the venotomy site until hem ostasis was obtained. Sterile dressing was applied. The patient tolerated the procedure well and there were no complications. CONCLUSION: Uncomplicated Permcath removal. Samy Del Rio MD on October 30, 2016 at 13:32 Board Certified Radiologist. This report was verified electronically.
--- NOTE | 2016-10-30 14:09 | RADRPT ---
EXAM DATE/TIME: 10/30/2016 12:19 [facility] COMPARISON: PERM CV CATH PLCMT W US RIGHT, October 19, 2015, 8:43. INDICATIONS : The potential left IJ catheter tunnel infection with malfunctioning arterial port. MEDICAL HISTORY : Multiple sclerosis diagnosed in late 2012 requiring plasmapheresis periodically. Most recent plasmapheresis was March 2016. Fibromyalgia Bipolar disorder History of obesity Hypertension Lupus Fibromyalgia Gastroparesis Recurrent UTIs SURGICAL HISTORY : 2004 the patient had C3 through C6 anterior cervical discectomy and arthrodesis for severe cervical stenosis and myelopathy 2008 the patient had again the same diagnosis but had C6-C7 anterior cervical discectomy and arthrodesis 2010 the patient had open reduction, internal fixation of a right ankle fracture Right distal fibula fracture Torn lateral meniscus last year and underwent arthroscopic surgery Laparoscopic cholecystectomy Hysterectomy Suprapubic catheter placement PermCath placement ENCOUNTER: Subsequent ACUITY: 2 days PAIN SCORE: 5/10 LOCATION: back FLUORO TIME: 0.36 minutes IMAGE SERIES: 0 SEDATION TIME: 20 minutes ACCESS: Right internal jugular vein SEDATION: 1.) 5 mg midazolam (Versed) IV 2.) 250 mcg fentanyl (Sublimaze) IV Prophylactic antibiotics were administered with appropriate pre-procedure timing. Vancomycin within 2 hours of procedure, Ancef (or alternative) within 1 hour of procedure. DEVICE: 1. 15 [place] dual lumen 23 cm Permacath PROCEDURE : 1. Ultrasound-guided venipuncture. 2. PermaCath placement. 3. Conscious sedation with continuous EKG and oximetry monitoring. The risks, benefits and alternatives to the procedure were explained and verbal and written consent w as obtained. The site was prepped in sterile fashion. Full sterile technique was used, including ca p, mask, sterile gloves and gown and a large sterile sheet. Hand hygiene and 2% chlorhexidine and/or betadine/alcohol prep was utilized per protocol for cutaneous antisepsis. The skin and subcutaneous tissues were infiltrated with local anesthetic solution. With ultrasound and fluoroscopic guidance a dermatotomy was created over the prescribed vein. A micr opuncture set was used to access the targeted vein and serial dilatation was performed to accept the prescribed length catheter. A subcutaneous tunnel was created in a retrograde fashion the catheter w as pulled through the tunnel. The catheter was flushed and assembled and locked with heparin. The c atheter was sutured in place. Conscious sedation was performed with the prescribed dosages and duration as above in the presence of an independent trained radiology nurse to assist in the monitoring of the patient. EKG and oximetry remained stable throughout the procedure. The patient tolerated the procedure well and there were n o complications. The patient was sent to post anesthesia recovery in stable condition. CONCLUSION: Uncomplicated PermaCath placement as above. Samy Del Rio MD on October 30, 2016 at 14:05 Board Certified Radiologist. This report was verified electronically.
[2016-10-31] MEDS ORDERED: INTE44IN SQ (14:31)
== END 2016-10-30 16:13 | disposition home or self-care (01) ==
LOC: HRIP 09:19 → HROP 09:19
PROVIDERS: ATTEND Internal Medicine Hematology & Oncology
DX: T82.41XA Breakdown (mechanical) of vascular dialysis catheter, initial encounter (principal); I10 Essential (primary) hypertension; M79.7 Fibromyalgia; M06.9 Rheumatoid arthritis, unspecified; G35 Multiple sclerosis; Z98.1 Arthrodesis status; Z01.818 Encounter for other preprocedural examination; Z01.810 Encounter for preprocedural cardiovascular examination
CPT/HCPCS: 36558; 36589; 76937; 77001; 85025; 85610; 99152; 99153; C1750; C1769; J1644; J2250; J3010

== ENCOUNTER 2016-10-31 13:39 | Emergency (ER) | payer MEDICARE ==
[~2016-10-31] VITALS: Ht 167.6 cm; Wt 105.0 kg
[~2016-10-31 13:39] MED LIST changes: +CEPH-460 PO
[2016-10-31 14:03] VITALS: BP 126/89; PULSE 72; RESP 16; TEMP 98.1; O2SAT 99
[2016-10-31] MEDS ORDERED: INTE44IN SQ (14:31)
--- NOTE | 2016-10-31 15:27 | PD ---
HPI Chief Complaint: Pain: Acute or Chronic Time Seen by Provider: 13:46 Travel History International Travel<30 days: No Contact w/Intl Traveler<30days: No Traveled to known affect area: No History of Present Illness HPI 61yo F with PMH of MS on chronic pain medication presents to the ED with c/o right in the right vas cath that was placed on IR yesterday. Stats she had left vas cath taken out because of infection and that she has had [address] before and never had this much pain. Pt is on dilaudid PO for chronic pain and instead of taking her dilaudid, she mistakenly took her clonidine so she was worried. BP has been stable. Denies any fever, chest pain, sob, n/v, abdominal pain, focal weakness or numbness. PFSH Past Medical History Hx Anticoagulant Therapy: Yes (ASA ) Arthritis: Yes Asthma: No Autoimmune Disease: Yes (LUPUS, MS, RA AND SPINAL STENOSIS) Blood Disorders: No Bipolar Disorder: Yes Anxiety: Yes Depression: No Heart Rhythm Problems: No Cancer: No Cardiac Catheterization: No Cardiovascular Problems: Yes High Cholesterol: Yes Chemotherapy: No Chest Pain: Yes Congestive Heart Failure: No COPD: No Cerebrovascular Accident: No Diabetes: No Diminished Hearing: No Endocrine: No Fibromyalgia: Yes GERD: No Genitourinary: Yes (uti, suprapubic catheter) Headaches: Yes Hepatitis: No Hiatal Hernia: No Hypertension: Yes Immune Disorder: Yes (lupus, ra, fibromyalgia) Implanted Vascular Access Dvce: Yes Kidney Stones: No Medical other: Yes (HX MENINGITIS, LUPUS, FIBROMYALGIA) Musculoskeletal: Yes (left leg weakness) Neurologic: No Psychiatric: Yes Reproductive: Yes (partial hysterectomy ) Respiratory: No Immunizations Current: Yes Migraines: Yes Radiation Therapy: No Renal Failure: No Seizures: No Sickle Cell Disease: No Sleep Apnea: No Thyroid Disease: No Ulcer: No Tetanus Vaccination: < 5 Years Influenza Vaccination: No PNEUMOCCOCAL Vaccine (Year): 2 ?: Not Menopausal: Yes : 3 Para: 2 Miscarriage: 1 Ovarian Cysts: Yes Tubal Ligation: Yes Past Surgical History Abdominal Surgery: No AICD: No Appendectomy: No Arteriovenous Shunt: No Body Medical Devices: screws in right leg Cardiac Surgery: No Cholecystectomy: Yes Coronary Artery Bypass Graft: No Ear Surgery: No Endocrine Surgery: No Eye Surgery: No Genitourinary Surgery: No Gynecologic Surgery: Yes Hysterectomy: Yes (PARTIAL) Insulin Pump: No Joint Replacement: No Neurologic Surgery: Yes ( C 2-3 AND 5-6 FUSION 2004) Oral Surgery: No Pacemaker: No Thoracic Surgery: No Other Surgery: Yes (cervical fusion, amina, partial hysterectomy) Family History Family Myocardial Infarction: Yes Social History Alcohol Use: No Tobacco Use: No (never) Substance Use: No (pt denies) Allergies-Medications (Allergen,Severity, Reaction): Coded Allergies: Adhesives (Verified Allergy, Severe, Rash, 10/31/16) Albuterol (Verified Allergy, Severe, SORES, 10/31/16) Codeine (Verified Allergy, Severe, SWELLING AND DIFFICULTY BREATHING, 10/31) Dynacirc (Verified Allergy, Severe, ELEVATED HEART RATE, 10/31/16) Lortab (Verified Allergy, Severe, RASH AND SWELLING, 10/31/16) Percocet (Verified Allergy, Severe, ITCHING, 10/31/16) Solu-Medrol (Verified Allergy, Severe, Shortness of Breath, 10/31/16) *MDRO Multi-Drug Resistant Organism (Verified Adverse Reaction, Unknown, ) 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 Reported Meds & Prescriptions Reported Meds & Active Scripts Active Dilaudid (Hydromorphone HCl) 4 Mg Tab 4 Mg PO Q8H PRN Ipratropium Neb (Ipratropium Schulter) 0.5 Mg/2.5 Ml Amp 0.5 Mg NEB Q4HR NEB Neurontin (Gabapentin) 300 Mg Cap 300 Mg PO DAILY@1300 Neurontin (Gabapentin) 300 Mg Cap 600 Mg PO BID Reported Rebif Rebidose Pen Inj (Interferon Beta 1a) 44 Mcg/0.5 Ml Pen 44 Mcg SQ MOWEFR Inject 44mcg sq three times a week on Friday,Friday and Friday Keflex (Cephalexin) 500 Mg Cap 500 Mg PO Q6H Hiprex (Methenamine Hippurate) 1 Gm Tab 1 Gm PO BID Cranberry Urinary Comfort (Vitamins C & E) 1 Cap 1 Cap PO DAILY Lisinopril 20 Mg Tab 20 Mg PO DAILY Toviaz ER (Fesoterodine Fumarate) 8 Mg Lou 8 Mg PO DAILY Nifedipine 10 Mg Cap 30 Mg PO HS Furosemide 40 Mg Tab 40 Mg PO DAILY Protonix (Pantoprazole Sodium) 20 Mg Tab 20 Mg PO DAILY Procardia XL (Nifedipine) 60 Mg Tab 60 Mg PO DAILY Plaquenil (Hydroxychloroquine Sulfate) 200 Mg Tab 200 Mg PO BID Take with food Potassium Chloride ER (Potassium Chloride) 20 Meq Tab 20 Meq PO DAILY Catapres (Clonidine) 0.2 Mg Tab 0.2 Mg PO TID Aspirin 325 Mg Tab 325 Mg PO DAILY D 46500 (Cholecalciferol) 10,000 Unit Cap 10,000 Units PO DAILY Vitamin B Complex (B-Complex Vitamins) 1 Tab 1 Tab PO DAILY Review of Systems Except as stated in HPI: all other systems reviewed are Neg Physical Exam Narrative GENERAL: 61yo F not in distress. SKIN: Focused skin assessment warm/dry. HEAD: Atraumatic. Normocephalic. EYES: Pupils equal and round. No scleral icterus. No injection or drainage. CARDIOVASCULAR: Regular rate and rhythm. No murmur appreciated. RESPIRATORY: No accessory muscle use. Clear to auscultation. Breath sounds equal bilaterally. CHEST WALL: +Right vas cath. Tender to palpation. No erythema, bleeding or crepitus. GASTROINTESTINAL: Abdomen soft, non-tender, nondistended. MUSCULOSKELETAL: No obvious deformities. No clubbing. No cyanosis. No edema. NEUROLOGICAL: Awake and alert. No obvious cranial nerve deficits. Motor grossly within normal limits. Normal speech. PSYCHIATRIC: Appropriate mood and affect; insight and judgment normal. Data Data Last Documented VS Vital Signs Date Time Temp Pulse Resp B/P Pulse Ox O2 Delivery O2 Flow Rate FiO2 10/31/16 18:30 97.8 57 16 126/67 99 Room Air Orders Complete Blood Count With Diff (10/31/16 15:12) Basic Metabolic Panel (Bmp) (10/31/16 15:12) Ct Thorax/ Chest W Iv Contrast (10/31/16 ) Vascular Access Team Consult/P PRN (10/31/16 15:28) Vascular Poc Ultrasound (10/31/16 ) Potassium Chloride (Kcl) (10/31/16 17:45) Iohexol 350 Inj (Omnipaque 350 Inj) (10/31/16 18:26) Labs Laboratory Tests Test 10/31/16 10/31/16 15:45 16:50 Sodium Level 140 MEQ/L Potassium Level 3.2 MEQ/L Chloride Level 104 MEQ/L Carbon Dioxide Level 28.8 MEQ/L Anion Gap 7 MEQ/L Blood Urea Nitrogen 11 MG/DL Creatinine 0.99 MG/DL Estimat Glomerular Filtration 69 ML/MIN Rate Random Glucose 139 MG/DL Calcium Level 9.3 MG/DL White Blood Count 5.6 TH/MM3 Red Blood Count 4.02 MIL/MM3 Hemoglobin 10.8 GM/DL Hematocrit 33.3 % Mean Corpuscular Volume 83.0 FL Mean Corpuscular Hemoglobin 26.8 PG Mean Corpuscular Hemoglobin 32.3 % Concent Red Cell Distribution Width 14.1 % Platelet Count 299 TH/MM3 Mean Platelet Volume 7.8 FL Neutrophils (%) (Auto) 54.6 % Lymphocytes (%) (Auto) 23.4 % Monocytes (%) (Auto) 11.7 % Eosinophils (%) (Auto) 9.3 % Basophils (%) (Auto) 1.0 % Neutrophils # (Auto) 3.1 TH/MM3 Lymphocytes # (Auto) 1.3 TH/MM3 Monocytes # (Auto) 0.7 TH/MM3 Eosinophils # (Auto) 0.5 TH/MM3 Basophils # (Auto) 0.1 TH/MM3 CBC Comment DIFF FINAL Differential Comment MDM Medical Decision Making Medical Screen Exam Complete: Yes Emergency Medical Condition: Yes Differential Diagnosis Abscess vs. hematoma vs. normal pain after procedure Narrative Course 61yo F with complain of pain in right vas cath site. Pt has vas cath for plasmapharesis for her MS is here with complain of pain around the catheter site. Pt had left infected vas cath taken out yesterday and replaced with a right sided vas cath. Pt states she tried to take hydromorphone but instead mistakenly took clonidine and was worried about her blood pressure so does not want any pain medication. Pt is nontoxic appearing and BP is 109/58. Will obtain labs and CT chest to further evaluate the site. Labs reviewed, no leukocytosis. H/H low at 10.8/33.3. This is baseline. K: 3.2, replaced. CT chest showed right IJ central venous line in place with tip in superior vena cava. No evidence of hemorrhage. Multiple small noncalcified pulmonary nodules of concern for early metastatic disease. Informed pt of this and to follow up with PMD. Return precautions given. Diagnosis Primary Impression: Pain due to vascular device Qualified Code: T82.848A - Pain due to vascular device, initial encounter Patient Instructions: General Instructions Departure Forms: Tests/Procedures Additional Instructions: Please follow up with your PMD in 1-2 days. Return to the ED if symptoms worsen. Med/Other Pt SpecificInfo: No Change to Meds Disposition: 01 DISCHARGE HOME Condition: Stable Caroline Guillaume DO Oct 31, 2016 15:27
[2016-10-31 16:42] LABS: BICARBONATE 28.8 MEQ/L (21.0-32.0); POTASSIUM 3.2 MEQ/L (3.5-5.1)
[2016-10-31 16:44] VITALS: BP 109/58; PULSE 59; RESP 16; TEMP 97.9; O2SAT 99
[2016-10-31 17:25] LABS: AUTOMATED NEUTROPHIL # 3.1 TH/MM3 (1.8-7.7); BASOPHIL # 0.1 TH/MM3 (0-0.2); EOSINOPHIL # 0.5 TH/MM3 (0-0.4); EOSINOPHIL % 9.3 % (0.0-4.0); HEMATOCRIT 33.3 % (35.0-46.0); HEMO FLAGS DIFF FINAL; LYMPH % 23.4 % (9.0-44.0); LYMPHOCYTE # 1.3 TH/MM3 (1.0-4.8); MEAN CORPUSCULAR HEMOGLOBIN 26.8 PG (27.0-34.0); MEAN CORPUSCULAR HGB CONC 32.3 % (32.0-36.0); MONO % 11.7 % (0.0-8.0); NEUT % 54.6 % (16.0-70.0); PLATELET COUNT 299 TH/MM3 (150-450); RED BLOOD COUNT 4.02 MIL/MM3 (4.00-5.30); RED CELL DISTRIBUTION WIDTH 14.1 % (11.6-17.2); WHITE BLOOD COUNT 5.6 TH/MM3 (4.0-11.0)
[2016-10-31] MEDS ORDERED: POTASSIUM CHLORIDE 20 MEQ CONTROLLED RELEASE TAB PO ONE (17:45)
[2016-10-31] MEDS ORDERED: IOHEXOL 350 MG/ML 10 ML VIAL (for RAD DIAG) IV ONE (18:26)
[2016-10-31 18:30] VITALS: BP 126/67; PULSE 57; RESP 16; TEMP 97.8; O2SAT 99
--- NOTE | 2016-10-31 18:55 | RADRPT ---
EXAM DATE/TIME: 10/31/2016 18:11 [facility] COMPARISON: CT ABDOMEN & PELVIS W/O CONTRAST, December 10, 2015, 14:12. PERM CV CATH PLCMT W US RIGHT, October 30 17, 12:19. CHEST SINGLE AP, September 11, 2016, 14:23. INDICATIONS : Vas cath placement on right side yesterday now has pain . IV CONTRAST: 60 cc Omnipaque 350 (iohexol) IV RADIATION DOSE: 7.75 CTDIvol (mGy) MEDICAL HISTORY : Cardiovascular disease. Hypertension. Lupus. SURGICAL HISTORY : Hysterectomy. Vas cath ENCOUNTER: Initial ACUITY: 1 day PAIN SCALE: 8/10 LOCATION: Left chest TECHNIQUE: Volumetric scanning of the chest was performed. Using automated exposure control and adjustment of t he mA and/or kV according to patient size, radiation dose was kept as low as reasonably achievable to obtain optimal diagnostic quality images. DICOM format image data is available electronically for review and comparison. FINDINGS: LUNGS: There is no consolidation or pneumothorax. There is a 6-7 mm pleural based non-calcified nodule in th e right lower lobe. There is a second small subtle nodule in the right lower lobe on axial image #42. This measures 2-3 mm in size. There is a small hazy area of nodular opacity in the right upper lobe on axial image #21. There is a second small noncalcified pulmonary nodule in the left lower lobe chasity uring 4 mm. There are 3 additional small noncalcified 2-3 mm nodules in the left lower lobe. PLEURA: There is no pleural thickening or pleural effusion. MEDIASTINUM: The heart and great vessels demonstrate no acute abnormality. There is no mediastinal or hilar lymph adenopathy. There is a right internal jugular catheter in place with the tip in the superior vena cav a. AXILLAE: Within normal limits. No lymphadenopathy. SKELETAL: Within normal limits for patient age. MISCELLANEOUS: The visualized upper abdominal organs demonstrate no acute abnormality. Status post cholecystectomy. CONCLUSION: 1. Right internal jugular central venous line in place with the tip in the superior vena cava. There is no evidence of hemorrhage. 2. Multiple small noncalcified pulmonary nodules of concern for early metastatic disease. Misael Sal MD on October 31, 2016 at 18:46 Board Certified Radiologist. This report was verified electronically.
[2016-11-01 04:13] VITALS: BP 153/88; PULSE 64; RESP 16; O2SAT 98
== END 2016-11-01 09:00 | disposition home or self-care (01) ==
LOC: NEPC 13:39 → NEPD 11-01 09:00
DX: T82.848A Pain due to vascular prosthetic devices, implants and grafts, initial encounter (principal); G35 Multiple sclerosis; M13.80 Other specified arthritis, unspecified site; M32.9 Systemic lupus erythematosus, unspecified; M06.9 Rheumatoid arthritis, unspecified; M79.7 Fibromyalgia; I10 Essential (primary) hypertension; E78.00 Pure hypercholesterolemia, unspecified; F41.9 Anxiety disorder, unspecified
CPT/HCPCS: 71260; 80048; 85025; 99285; Q9967

== ENCOUNTER 2016-12-24 11:15 | Emergency (ER) | payer MEDICARE ==
[~2016-12-24] VITALS: Ht 168.9 cm; Wt 110.0 kg
[~2016-12-24 11:15] MED LIST changes: +INTE44IN SQ; -TERI14TA PO
[2016-12-24 11:18] VITALS: BP 138/80; PULSE 103; RESP 20; TEMP 98.5; O2SAT 96
[2016-12-24 14:49] VITALS: O2SAT 98
[2016-12-24] MEDS ORDERED: RESP: IPRATROPIUM 0.5 MG/2.5 ML NEB NEB ONE (15:00)
--- NOTE | 2016-12-24 15:02 | PD ---
HPI Chief Complaint: Cold / Flu Symptoms Time Seen by Provider: 14:18 Travel History International Travel<30 days: No Contact w/Intl Traveler<30days: No Traveled to known affect area: No History of Present Illness HPI Patient is a 7-year-old female presenting to emergency department for evaluation of flulike symptoms. Patient states that for the last 2 weeks she's had a productive cough, chest congestion, nasal congestion, fatigue and subjective low-grade fevers. Patient denies abdominal pain, chest pain, headache, neck pain. Patient states she's had intermittent nausea and vomited yesterday. Patient's primary care provider prescribed Levaquin which patient has been on for 11 days. Patient was at the [facility] this [facility] to have plasmapheresis and was sent to the emergency department because she was sick. Patient states that she believes she is relapsing in regards to her MS and states that she has been dropping things for the last week. Patient stated that she did not notify her neurologist as she thought she would get better. Patient is wheelchair-bound normally. Her past medical history includes multiple sclerosis, hypertension, anemia. PFSH Past Medical History Hx Anticoagulant Therapy: Yes (ASA ) Arthritis: Yes Asthma: No Autoimmune Disease: Yes (LUPUS, MS, RA AND SPINAL STENOSIS) Blood Disorders: No Bipolar Disorder: Yes Anxiety: Yes Depression: No Heart Rhythm Problems: No Cancer: No Cardiac Catheterization: No Cardiovascular Problems: Yes High Cholesterol: Yes Chemotherapy: No Chest Pain: Yes Congestive Heart Failure: No COPD: No Cerebrovascular Accident: No Diabetes: No Diminished Hearing: No Endocrine: No Fibromyalgia: Yes GERD: No Genitourinary: Yes (uti, suprapubic catheter) Headaches: Yes Hepatitis: No Hiatal Hernia: No Hypertension: Yes Immune Disorder: Yes (lupus, ra, fibromyalgia) Implanted Vascular Access Dvce: Yes Kidney Stones: No Musculoskeletal: Yes (left leg weakness) Neurologic: No Psychiatric: Yes Reproductive: Yes (partial hysterectomy ) Respiratory: No Immunizations Current: Yes Migraines: Yes Radiation Therapy: No Renal Failure: No Seizures: No Sickle Cell Disease: No Sleep Apnea: No Thyroid Disease: No Ulcer: No PNEUMOCCOCAL Vaccine (Year): 2 Menopausal: Yes : 3 Para: 2 Miscarriage: 1 Ovarian Cysts: Yes Tubal Ligation: Yes Past Surgical History Abdominal Surgery: No AICD: No Appendectomy: No Arteriovenous Shunt: No Body Medical Devices: screws in right leg Cardiac Surgery: No Cholecystectomy: Yes Coronary Artery Bypass Graft: No Ear Surgery: No Endocrine Surgery: No Eye Surgery: No Genitourinary Surgery: No Gynecologic Surgery: Yes Hysterectomy: Yes (PARTIAL) Insulin Pump: No Joint Replacement: No Neurologic Surgery: Yes ( C 2-3 AND 5-6 FUSION 2004) Oral Surgery: No Pacemaker: No Thoracic Surgery: No Other Surgery: Yes (cervical fusion, amina, partial hysterectomy) Social History Alcohol Use: No Tobacco Use: No (never) Substance Use: No (pt denies) Allergies-Medications (Allergen,Severity, Reaction): Coded Allergies: acetaminophen (Unverified Allergy, Severe, ITCHING, 12/17/16) adhesive (Unverified Allergy, Severe, Rash, 12/17/16) albuterol (Unverified Allergy, Severe, SORES, 12/17/16) codeine (Unverified Allergy, Severe, SWELLING AND DIFFICULTY BREATHING, ) hydrocodone (Unverified Allergy, Severe, RASH AND SWELLING, 12/17/16) isradipine (Unverified Allergy, Severe, ELEVATED HEART RATE, 12/17/16) methylprednisolone (Unverified Allergy, Severe, Shortness of Breath, ) oxycodone (Unverified Allergy, Severe, ITCHING, 12/17/16) *MDRO Multi-Drug Resistant Organism (Verified Adverse Reaction, Unknown, ) 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 Reported Meds & Prescriptions Reported Meds & Active Scripts Active Guaifenesin DM Liq (Guaifenesin-Dextromethorphan Liq) 10-100 Mg/5 Ml Liq 10 Ml PO Q6HR PRN Dilaudid (Hydromorphone HCl) 4 Mg Tab 4 Mg PO Q8H PRN Ipratropium Neb (Ipratropium [place]) 0.5 Mg/2.5 Ml Amp 0.5 Mg NEB Q4HR NEB Neurontin (Gabapentin) 300 Mg Cap 300 Mg PO DAILY@1300 Neurontin (Gabapentin) 300 Mg Cap 600 Mg PO BID Reported Rebif Rebidose Pen Inj (Interferon Beta 1a) 44 Mcg/0.5 Ml Pen 44 Mcg SQ MOWEFR Inject 44mcg sq three times a week on Friday,Friday and Friday Hiprex (Methenamine Hippurate) 1 Gm Tab 1 Gm PO BID Cranberry Urinary Comfort (Vitamins C & E) 1 Cap 1 Cap PO DAILY Lisinopril 20 Mg Tab 20 Mg PO DAILY Toviaz ER (Fesoterodine Fumarate) 8 Mg Lou 8 Mg PO DAILY Nifedipine 10 Mg Cap 30 Mg PO HS Furosemide 40 Mg Tab 40 Mg PO DAILY Protonix (Pantoprazole Sodium) 20 Mg Tab 20 Mg PO DAILY Procardia XL (Nifedipine) 60 Mg Tab 60 Mg PO DAILY Plaquenil (Hydroxychloroquine Sulfate) 200 Mg Tab 200 Mg PO BID Take with food Potassium Chloride ER (Potassium Chloride) 20 Meq Tab 20 Meq PO DAILY Catapres (Clonidine) 0.2 Mg Tab 0.2 Mg PO TID Aspirin 325 Mg Tab 325 Mg PO DAILY D 42258 (Cholecalciferol) 10,000 Unit Cap 10,000 Units PO DAILY Vitamin B Complex (B-Complex Vitamins) 1 Tab 1 Tab PO DAILY Review of Systems Except as stated in HPI: all other systems reviewed are Neg General / Constitutional: No: Fever, Chills HENT: Positive: Congestion, No: Headaches, Neck Pain Cardiovascular: No: Chest Pain or Discomfort Respiratory: Positive: Cough, Wheezing, Pleuritic Pain Gastrointestinal: Positive: Nausea, Vomiting, No: Diarrhea, Abdominal Pain, Changes in Bowel Habits Genitourinary: No: Dysuria Musculoskeletal: No: Myalgias Neurologic: Positive: Weakness, No: Dizziness, Syncope, Focal Abnormalities Physical Exam Narrative GENERAL: Obese, well-developed, alert female. Resting in no acute distress. SKIN: Warm and dry. HEAD: Atraumatic. Normocephalic. EYES: Pupils equal and round. No scleral icterus. No injection or drainage. ENT: No nasal bleeding or discharge. Mucous membranes pink and moist. NECK: Trachea midline. No JVD. CARDIOVASCULAR: Regular rate and rhythm. RESPIRATORY: No accessory muscle use. Coarse breath sounds in bases with scattered expiratory wheezing. No nasal flaring, no retractions, no increased work of breathing. GASTROINTESTINAL: Abdomen obese, soft, non-tender, nondistended. Hepatic and splenic margins not palpable. Suprapubic catheter MUSCULOSKELETAL: Extremities without clubbing, cyanosis, or edema. No obvious deformities. NEUROLOGICAL: Awake and alert. No obvious cranial nerve deficits. Motor grossly within normal limits. Five out of 5 muscle strength in the arms and legs. Normal speech. PSYCHIATRIC: Appropriate mood and affect; insight and judgment normal. Data Data Last Documented VS Vital Signs Date Time Temp Pulse Resp B/P (MAP) Pulse Ox O2 Delivery O2 Flow Rate FiO2 12/24/16 16:49 98.4 12/24/16 16:48 79 17 96 Room Air Orders Orders Complete Blood Count With Diff (12/24/16 14:37) Comprehensive Metabolic Panel (12/24/16 14:37) Lactic Acid Sepsis Protocol (12/24/16 14:37) Magnesium (Mg) (12/24/16 14:37) Lipase (12/24/16 14:37) Urinalysis - C+S If Indicated (12/24/16 14:37) Blood Culture (12/24/16 14:37) Sputum Culture And Gram Stain (12/24/16 14:37) Chest, Single Ap (12/24/16 14:37) Ecg Monitoring (12/24/16 14:37) Iv Access Insert/Monitor (12/24/16 14:37) Cath For Specimen (12/24/16 14:37) Oximetry (12/24/16 14:37) Oxygen Administration (12/24/16 14:37) Vascular Access Team Consult/P PRN (12/24/16 14:44) Vascular Poc Ultrasound (12/24/16 ) Ipratropium Neb (Atrovent Neb) (12/24/16 15:00) Labs Laboratory Tests Test 12/24/16 15:00 12/24/16 15:12 White Blood Count 8.5 TH/MM3 Red Blood Count 4.43 MIL/MM3 Hemoglobin 12.0 GM/DL Hematocrit 37.4 % Mean Corpuscular Volume 84.5 FL Mean Corpuscular Hemoglobin 27.1 PG Mean Corpuscular Hemoglobin Concent 32.1 % Red Cell Distribution Width 15.8 % Platelet Count 262 TH/MM3 Mean Platelet Volume 7.6 FL Neutrophils (%) (Auto) 62.6 % Lymphocytes (%) (Auto) 20.6 % Monocytes (%) (Auto) 9.4 % Eosinophils (%) (Auto) 6.4 % Basophils (%) (Auto) 1.0 % Neutrophils # (Auto) 5.3 TH/MM3 Lymphocytes # (Auto) 1.8 TH/MM3 Monocytes # (Auto) 0.8 TH/MM3 Eosinophils # (Auto) 0.5 TH/MM3 Basophils # (Auto) 0.1 TH/MM3 CBC Comment DIFF FINAL Differential Comment Blood Urea Nitrogen 18 MG/DL Creatinine 1.44 MG/DL Random Glucose 110 MG/DL Total Protein 8.1 GM/DL Albumin 4.1 GM/DL Calcium Level 9.9 MG/DL Magnesium Level 2.4 MG/DL Alkaline Phosphatase 94 U/L Aspartate Amino Transf (AST/SGOT) 25 U/L Alanine Aminotransferase (ALT/SGPT) 25 U/L Total Bilirubin 0.5 MG/DL Sodium Level 141 MEQ/L Potassium Level 4.6 MEQ/L Chloride Level 104 MEQ/L Carbon Dioxide Level 28.2 MEQ/L Anion Gap 9 MEQ/L Estimat Glomerular Filtration Rate 45 ML/MIN Lactic Acid Level 1.5 mmol/L Lipase 139 U/L [facility] Medical Decision Making Medical Screen Exam Complete: Yes Emergency Medical Condition: Yes Interpretation(s) Vital Signs Date Time Temp Pulse Resp B/P (MAP) Pulse Ox O2 Delivery O2 Flow Rate FiO2 12/24/16 14:49 98 Room Air 12/24/16 14:21 Room Air 12/24/16 11:18 98.5 103 20 138/80 (99) 96 Room Air Differential Diagnosis Bronchitis versus pneumonia versus metabolic abnormality versus MS relapse versus other Narrative Course Patient is a 61-year-old female that presented for evaluation of cough and congestion that has been ongoing for 2 weeks. Patient's vital signs are stable , she is afebrile. Patient is wheelchair-bound secondary to multiple sclerosis. Patient has been on Levaquin for 11 days, this was prescribed by her primary doctor. Complained of weakness which she felt is exacerbation of her multiple sclerosis. Labs and imaging ordered and pending Chest x-ray read by radiologist shows hyperinflation and minimal atelectatic changes of the left hemidiaphragm and lungs are otherwise clear. CBC with no acute abnormality Chemistry with a creatinine 1.44, lactic acid 1.5 Patient reassessed, at bedside. Patient is eating [employer] and resting comfortably. Patient has a nebulizer machine at home and she has plenty of nebulizer treatments per her report. Discussed with patient that there were no acute findings, she was advised that a postinfectious cough can last for several weeks. She will be provided with a prescription for cough medicine is to follow-up with her primary doctor in 1-2 days. Discussed with my attending the patient's complaint of her MS relapsing, patient is advised to follow-up with her neurologist. Patient and verbalized understanding of instructions. Diagnosis Primary Impression: Acute bronchitis Qualified Codes: J20.9 - Acute bronchitis, unspecified Additional Impression: Multiple sclerosis Referrals: Neurologist 1 day Primary Care Physician 1 day Additional Instructions: Follow-up with your primary care provider and your neurologist Continue symptom management Return to emergency department for any new or worsening symptoms Med/Other Pt SpecificInfo: Prescription(s) given Scripts Guaifenesin-Dextromethorphan Liq (Guaifenesin DM Liq) 10-100 Mg/5 Ml Liq 10 ML PO Q6HR Y for COUGH, #1 BOTTLE 0 Refills Prov: Jocelyn Bowens 12/24/16 Disposition: 01 DISCHARGE HOME Condition: Stable Jocelyn Bowens Dec 24, 2016 15:02
[2016-12-24 15:43] LABS: AUTOMATED NEUTROPHIL # 5.3 TH/MM3 (1.8-7.7); BASOPHIL # 0.1 TH/MM3 (0-0.2); EOSINOPHIL # 0.5 TH/MM3 (0-0.4); EOSINOPHIL % 6.4 % (0.0-4.0); HEMATOCRIT 37.4 % (35.0-46.0); HEMO FLAGS DIFF FINAL; LYMPH % 20.6 % (9.0-44.0); LYMPHOCYTE # 1.8 TH/MM3 (1.0-4.8); MEAN CELL VOLUME 84.5 FL (80.0-100.0); MEAN CORPUSCULAR HEMOGLOBIN 27.1 PG (27.0-34.0); MEAN CORPUSCULAR HGB CONC 32.1 % (32.0-36.0); MONO % 9.4 % (0.0-8.0); NEUT % 62.6 % (16.0-70.0); PLATELET COUNT 262 TH/MM3 (150-450); RED BLOOD COUNT 4.43 MIL/MM3 (4.00-5.30); RED CELL DISTRIBUTION WIDTH 15.8 % (11.6-17.2); WHITE BLOOD COUNT 8.5 TH/MM3 (4.0-11.0)
[2016-12-24 15:59] LABS: ALKALINE PHOSPHATASE 94 U/L (45-117); TOTAL BILIRUBIN ADULT 0.5 MG/DL (0.2-1.0)
--- NOTE | 2016-12-24 16:08 | RADRPT ---
EXAM DATE/TIME: 12/24/2016 15:35 [facility] COMPARISON: CHEST SINGLE AP, September 11, 2016, 14:23. INDICATIONS : Congestion. Short of breath. MEDICAL HISTORY : Cardiovascular disease. Hypertension Multiple sclerosis. Lupas. RA. Fibromyalgia. Spinal stenos is. Menningitis. SURGICAL HISTORY : Vas cath. ENCOUNTER: Initial ACUITY: 2 weeks PAIN SCORE: 0/10 LOCATION: Bilateral chest FINDINGS: A single view of the chest demonstrates the lungs to be symmetrically hyperinflated with minimal atel ectatic changes of the left hemidiaphragm. Lungs are otherwise clear. Heart size is normal. Right IJ permacath catheter with the tip projecting over the central venous system. Osseous structures are int act. CONCLUSION: 1. Hyperinflation and minimal atelectatic changes of the left hemidiaphragm. Lungs are otherwise aba r. 2. Interval removal of the left IJ PermCath catheter and placement of a right IJ PermCath catheter. Ifeanyi Whalen MD on December 24, 2016 at 16:02 Board Certified Radiologist. This report was verified electronically.
[2016-12-24 16:12] LABS: ALT (GPT) 25 U/L (10-53); ANION GAP 9 MEQ/L (5-15); AST (GOT) 25 U/L (15-37); BICARBONATE 28.2 MEQ/L (21.0-32.0); BLOOD UREA NITROGEN 18 MG/DL (7-18); CHLORIDE 104 MEQ/L (98-107); GLOMERULAR FILTRATION RATE 45 ML/MIN (>89); MAGNESIUM 2.4 MG/DL (1.5-2.5); POTASSIUM 4.6 MEQ/L (3.5-5.1); SODIUM (NA) 141 MEQ/L (136-145)
[2016-12-24 16:48] VITALS: BP 131/74; PULSE 79; RESP 17; O2SAT 96
[2016-12-24 16:49] VITALS: TEMP 98.4
[2016-12-24] MEDS ORDERED: GUAISYP7 PO (17:08)
== END 2016-12-24 19:49 | disposition home or self-care (01) ==
LOC: NEPD 11:15
DX: J20.9 Acute bronchitis, unspecified (principal); B96.5 Pseudomonas (aeruginosa) (mallei) (pseudomallei) as the cause of diseases classified elsewhere; B95.62 Methicillin resistant Staphylococcus aureus infection as the cause of diseases classified elsewhere; G35 Multiple sclerosis; M32.9 Systemic lupus erythematosus, unspecified; M06.9 Rheumatoid arthritis, unspecified; I10 Essential (primary) hypertension; E78.00 Pure hypercholesterolemia, unspecified
CPT/HCPCS: 71010; 76937; 80053; 83605; 83690; 83735; 85025; 86403; 87040; 87070; 87077; 87186; 87205; 94664; 99284; J7644; P9612

== ENCOUNTER 2016-12-28 19:53 | Inpatient (IN) | payer MEDICARE ==
[~2016-12-28] VITALS: Ht 170.2 cm; Wt 108.3 kg
[~2016-12-28 19:53] MED LIST changes: -CEPH-460 PO; +GUAISYP7 PO
[2016-12-28 20:01] VITALS: BP 111/75; PULSE 70; RESP 15; TEMP 98.6; O2SAT 99
--- NOTE | 2016-12-28 21:12 | PD ---
HPI Chief Complaint: Medical Clearance Time Seen by Provider: 20:15 Travel History International Travel<30 days: No Contact w/Intl Traveler<30days: No Traveled to known affect area: No History of Present Illness HPI 61-year-old black female with a history of MS was asked to come back to the ER after having 2 positive blood cultures for staph epidermidis, sputum culture positive for MRSA and pseudomonas. The patient has been sick now for over 2 weeks. She has had upper respiratory tract symptoms of cough, congestion, yellow sputum, some shortness of breath at times, increasing weakness particularly of the upper extremities where she is having difficulty grasping things. She states that this is a classical presentation of exacerbation of her MS. She does admit to low-grade temperatures of 99 at home. She states that these have been coming and going. The patient had been on an 11 day course of Levaquin. Her sputum culture for Pseudomonas is resistant to oral antibiotics. Patient states that she has not had any significant improvement in her cough. She states that her sputum was much thicker before but she has been taking an expectorant which seemed to make the sputum tender. She denies any nausea vomiting. No abdominal issues. She has a suprapubic catheter. She is nonambulatory. She is brought in today by nonemergent transport at the request of the Hospital due to the positive cultures. Patient is currently undergoing plasmapheresis with Dr. Reid. She is also followed by Dr. Trevino. Her primary care doctor is Vinay Carrizales. [facility] Past Medical History Narrative Medical Multiple sclerosis diagnosed in 2012. Patient is undergoing plasmapheresis., Fibromyalgia, bipolar, morbid obesity, hypertension, lupus, fibrotic, gastroparesis, chronic UTIs with suprapubic catheter, spinal stenosis involving the cervical spine Hx Anticoagulant Therapy: Yes (ASA ) Arthritis: Yes Asthma: No Autoimmune Disease: Yes (LUPUS, MS, RA AND SPINAL STENOSIS) Blood Disorders: No Bipolar Disorder: Yes Anxiety: Yes Depression: No Heart Rhythm Problems: No Cancer: No Cardiac Catheterization: No Cardiovascular Problems: Yes High Cholesterol: Yes Chemotherapy: No Chest Pain: Yes Congestive Heart Failure: No COPD: No Cerebrovascular Accident: No Diabetes: No Diminished Hearing: No Endocrine: No Fibromyalgia: Yes GERD: No Genitourinary: Yes (uti, suprapubic catheter) Headaches: Yes Hepatitis: No Hiatal Hernia: No Hypertension: Yes Immune Disorder: Yes (lupus, ra, fibromyalgia) Implanted Vascular Access Dvce: Yes Kidney Stones: No Medical other: Yes (HX MENINGITIS, LUPUS, FIBROMYALGIA) Musculoskeletal: Yes (left leg weakness) Neurologic: No Psychiatric: Yes Reproductive: Yes (partial hysterectomy ) Respiratory: No Immunizations Current: Yes Migraines: Yes Radiation Therapy: No Renal Failure: No Seizures: No Sickle Cell Disease: No Sleep Apnea: No Thyroid Disease: No Ulcer: No Influenza Vaccination: No PNEUMOCCOCAL Vaccine (Year): 2 Menopausal: Yes : 3 Para: 2 Miscarriage: 1 Ovarian Cysts: Yes Tubal Ligation: Yes Past Surgical History Abdominal Surgery: No AICD: No Appendectomy: No Arteriovenous Shunt: No Body Medical Devices: screws in right leg Cardiac Surgery: No Cholecystectomy: Yes Coronary Artery Bypass Graft: No Ear Surgery: No Endocrine Surgery: No Eye Surgery: No Genitourinary Surgery: No Gynecologic Surgery: Yes Hysterectomy: Yes (PARTIAL) Insulin Pump: No Joint Replacement: No Neurologic Surgery: Yes ( C 2-3 AND 5-6 FUSION 2004) Oral Surgery: No Pacemaker: No Thoracic Surgery: No Other Surgery: Yes (cervical fusion, amina, partial hysterectomy) Family History Family Myocardial Infarction: Yes Social History Alcohol Use: No Tobacco Use: No Substance Use: No Allergies-Medications (Allergen,Severity, Reaction): Coded Allergies: acetaminophen (Unverified Allergy, Severe, ITCHING, 12/28/16) adhesive (Unverified Allergy, Severe, Rash, 12/28/16) albuterol (Unverified Allergy, Severe, SORES, 12/28/16) codeine (Unverified Allergy, Severe, SWELLING AND DIFFICULTY BREATHING, ) hydrocodone (Unverified Allergy, Severe, RASH AND SWELLING, 12/28/16) isradipine (Unverified Allergy, Severe, ELEVATED HEART RATE, 12/28/16) methylprednisolone (Unverified Allergy, Severe, Shortness of Breath, ) oxycodone (Unverified Allergy, Severe, ITCHING, 12/28/16) *MDRO Multi-Drug Resistant Organism (Verified Adverse Reaction, Unknown, ) 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 Reported Meds & Prescriptions Reported Meds & Active Scripts Active Guaifenesin DM Liq (Guaifenesin-Dextromethorphan Liq) 10-100 Mg/5 Ml Liq 10 Ml PO Q6HR PRN Dilaudid (Hydromorphone HCl) 4 Mg Tab 4 Mg PO Q8H PRN Ipratropium Neb (Ipratropium [place]) 0.5 Mg/2.5 Ml Amp 0.5 Mg NEB Q4HR NEB Neurontin (Gabapentin) 300 Mg Cap 300 Mg PO DAILY@1300 Neurontin (Gabapentin) 300 Mg Cap 600 Mg PO BID Reported Rebif Rebidose Pen Inj (Interferon Beta 1a) 44 Mcg/0.5 Ml Pen 44 Mcg SQ MOWEFR Inject 44mcg sq three times a week on Friday,Friday and Friday Hiprex (Methenamine Hippurate) 1 Gm Tab 1 Gm PO BID Cranberry Urinary Comfort (Vitamins C & E) 1 Cap 1 Cap PO DAILY Lisinopril 20 Mg Tab 20 Mg PO DAILY Toviaz ER (Fesoterodine Fumarate) 8 Mg Lou 8 Mg PO DAILY Nifedipine 10 Mg Cap 30 Mg PO HS Furosemide 40 Mg Tab 40 Mg PO DAILY Protonix (Pantoprazole Sodium) 20 Mg Tab 20 Mg PO DAILY Procardia XL (Nifedipine) 60 Mg Tab 60 Mg PO DAILY Plaquenil (Hydroxychloroquine Sulfate) 200 Mg Tab 200 Mg PO BID Take with food Potassium Chloride ER (Potassium Chloride) 20 Meq Tab 20 Meq PO DAILY Catapres (Clonidine) 0.2 Mg Tab 0.2 Mg PO TID Aspirin 325 Mg Tab 325 Mg PO DAILY D 42817 (Cholecalciferol) 10,000 Unit Cap 10,000 Units PO DAILY Vitamin B Complex (B-Complex Vitamins) 1 Tab 1 Tab PO DAILY Review of Systems Except as stated in HPI: all other systems reviewed are Neg General / Constitutional: Positive: Fever, Chills Eyes: No: Diploplia, Blurred Vision HENT: Positive: Congestion, No: Sore Throat Cardiovascular: No: Chest Pain or Discomfort, Palpitations Respiratory: Positive: Cough, Shortness of Breath, Wheezing Gastrointestinal: Positive: Nausea, No: Vomiting Genitourinary: No: Dysuria, Hematuria Musculoskeletal: Positive: Limited ROM, Weakness, No: Edema Skin: No Rash, No Itching Neurologic: Positive: Weakness, No: Dizziness Physical Exam Narrative GENERAL: Well-developed, well-nourished in no apparent distress. Nontoxic appearing. Patient is in her wheelchair sitting upright. She does not appear to be having any respiratory distress. HEAD: Normocephalic, atraumatic. EYES: Pupils equal round and reactive. Extraocular motions intact. No scleral icterus. No injection or drainage. ENT: Nose clear. Throat without erythema, tonsillar hypertrophy or exudate. Uvula midline. Airway patent. NECK: Trachea midline. Supple, nontender, moves head freely. No central bony tenderness or spasm. CARDIOVASCULAR: Regular rate and rhythm without murmurs, gallops, or rubs. RESPIRATORY: Clear to auscultation. Breath sounds equal bilaterally. No wheezes , rales, or rhonchi. GASTROINTESTINAL: Abdomen soft, non-tender, nondistended. No hepato-splenomegaly , or palpable masses. No guarding. EXTREMITIES: No clubbing, cyanosis, +1 pedal edema. No joint tenderness. BACK: Nontender without deformity. No flank tenderness. NEUROLOGICAL: Awake, alert and oriented x 3 .patient is able to raise her hands up to head level. She states that this is significantly worse than usual. 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 She cannot raise her legs. She can move her feet minimally. Data Data Last Documented VS Vital Signs Date Time Temp Pulse Resp B/P (MAP) Pulse Ox O2 Delivery O2 Flow Rate FiO2 12/28/16 21:40 74 18 117/68 (84) 98 Room Air 12/28/16 20:01 98.6 Orders Orders Complete Blood Count With Diff (12/28/16 20:46) Comprehensive Metabolic Panel (12/28/16 20:46) Blood Culture (12/28/16 20:46) Urinalysis - C+S If Indicated (12/28/16 20:46) Sputum Culture And Gram Stain (12/28/16 20:46) Chest, Single Ap (12/28/16 20:46) Iv Access Insert/Monitor (12/28/16 20:46) Lactic Acid (12/28/16 20:46) Vancomycin Inj (Vancomycin Inj) (12/28/16 21:30) Urine Culture (12/28/16 21:05) Imipenem/Cilastatin Inj (Inj) (12/28/16 22:00) Labs Laboratory Tests Test 12/28/16 21:00 12/28/16 21:05 12/28/16 21:06 Lactic Acid Level 0.9 mmol/L Urine Color YELLOW Urine Turbidity HAZY Urine pH 5.5 Urine Specific Vivian 1.027 Urine Protein 100 mg/dL Urine Glucose (UA) NEG mg/dL Urine Ketones NEG mg/dL Urine Occult Blood SMALL Urine Nitrite POS Urine Bilirubin NEG Urine Urobilinogen LESS THAN 2.0 MG/DL Urine Leukocyte Esterase LARGE Urine RBC 26 /hpf Urine WBC 101 /hpf Urine Squamous Epithelial Cells 1 /hpf Urine Calcium Oxalate Crystals OCC /hpf Urine Bacteria OCC /hpf Urine Hyaline Casts 1 /lpf Urine Mucus FEW /lpf Urine Yeast (Budding) MOD Microscopic Urinalysis Comment CATH-CULTURE IND White Blood Count 8.0 TH/MM3 Red Blood Count 3.76 MIL/MM3 Hemoglobin 10.4 GM/DL Hematocrit 31.6 % Mean Corpuscular Volume 83.9 FL Mean Corpuscular Hemoglobin 27.8 PG Mean Corpuscular Hemoglobin Concent 33.1 % Red Cell Distribution Width 15.5 % Platelet Count 231 TH/MM3 Mean Platelet Volume 7.4 FL Neutrophils (%) (Auto) 64.9 % Lymphocytes (%) (Auto) 19.8 % Monocytes (%) (Auto) 8.5 % Eosinophils (%) (Auto) 6.0 % Basophils (%) (Auto) 0.8 % Neutrophils # (Auto) 5.2 TH/MM3 Lymphocytes # (Auto) 1.6 TH/MM3 Monocytes # (Auto) 0.7 TH/MM3 Eosinophils # (Auto) 0.5 TH/MM3 Basophils # (Auto) 0.1 TH/MM3 CBC Comment DIFF FINAL Differential Comment Blood Urea Nitrogen 13 MG/DL Creatinine 1.06 MG/DL Random Glucose 98 MG/DL Total Protein 6.7 GM/DL Albumin 3.4 GM/DL Calcium Level 9.1 MG/DL Alkaline Phosphatase 77 U/L Aspartate Amino Transf (AST/SGOT) 10 U/L Alanine Aminotransferase (ALT/SGPT) 16 U/L Total Bilirubin 0.5 MG/DL Sodium Level 142 MEQ/L Potassium Level 3.4 MEQ/L Chloride Level 107 MEQ/L Carbon Dioxide Level 29.1 MEQ/L Anion Gap 6 MEQ/L Estimat Glomerular Filtration Rate 64 ML/MIN MDM Medical Decision Making Medical Screen Exam Complete: Yes Emergency Medical Condition: Yes Medical Record Reviewed: Yes Interpretation(s) CBC & BMP Diagram 12/28/16 21:06 Total Protein 6.7 #, Albumin 3.4, Calcium Level 9.1, Alkaline Phosphatase 77, Aspartate Amino Transf (AST/SGOT) 10 L, Alanine Aminotransferase (ALT/SGPT) 16, Total Bilirubin 0.5 Last 24 hours Impressions Chest X-Ray 12/28/162045 Signed Impressions: Service Date/Time: Friday, December 28, 2016 21:00 - CONCLUSION: 1. Right basilar streakiness consistent with atelectasis and/or mild infiltrate. Clinical correlation is recommended. Manuel Adam MD Differential Diagnosis Differential diagnoses: Pneumonia, bronchitis, colonization, exacerbation of MS , electrolyte abnormality, sepsis Narrative Course IV access is obtained. Repeat blood cultures, sputum culture, routine laboratory testing including CBC, chemistry, UA. With the history of positive sputum culture for MRSA and pseudomonas and being on a course of Levaquin which is resistant patient was advised to come back to the ER for admission to the hospital for IV antibiotics. The patient is given ertapenem to 50 mg IV, vancomycin 1 g IV. I reviewed the patient's laboratory tests. Her x-ray was read as atelectasis the right base versus mild infiltrate. The patient has exacerbation of her MS. She also has an indwelling catheter and a urinary tract infection. This is acute exacerbation of MS, right lower lobe infiltrate with positive sputum culture for Pseudomonas and MRSA Case has been discussed with Dr. Banerjee who has agreed to admit the patient to Dr. Morales Diagnosis Primary Impression: acute exacerbation of MS Additional Impression: right lower lobe infiltrate Admitting Information Admitting Physician Requests: Admit Condition: Stable John Breaux Dec 28, 2016 21:12
--- NOTE | 2016-12-28 21:16 | RADRPT ---
EXAM DATE/TIME: 12/28/2016 21:00 [place] COMPARISON: CHEST SINGLE AP, December 24, 2016, 15:35. INDICATIONS : Congestion and shortness of breath. MEDICAL HISTORY : Hypercholesterolemia. Hypertension Acute bronchitis. SURGICAL HISTORY : Vas cath. ENCOUNTER: Initial ACUITY: 2 weeks PAIN SCORE: 0/10 LOCATION: Bilateral chest FINDINGS: A right-sided tunneled dialysis catheter has its tips in the right atrium. The heart is stable. The pulmonary vascular pattern is normal. Right basilar streakiness is noted consistent with atelectasi s and/or mild infiltrate. Clinical correlation is recommended. CONCLUSION: 1. Right basilar streakiness consistent with atelectasis and/or mild infiltrate. Clinical correlati on is recommended. Manuel Adam MD on December 28, 2016 at 21:11 Board Certified Radiologist. This report was verified electronically.
[2016-12-28] MEDS ORDERED: IMIPENEM/CILASTATIN INJ 500 MG VIAL IV STA (21:26)
[2016-12-28 21:27] LABS: AUTOMATED NEUTROPHIL # 5.2 TH/MM3 (1.8-7.7); BASOPHIL # 0.1 TH/MM3 (0-0.2); BASOPHIL % 0.8 % (0.0-2.0); EOSINOPHIL # 0.5 TH/MM3 (0-0.4); HEMATOCRIT 31.6 % (35.0-46.0); HEMO FLAGS DIFF FINAL; LYMPH % 19.8 % (9.0-44.0); LYMPHOCYTE # 1.6 TH/MM3 (1.0-4.8); MEAN CELL VOLUME 83.9 FL (80.0-100.0); MEAN CORPUSCULAR HEMOGLOBIN 27.8 PG (27.0-34.0); MEAN CORPUSCULAR HGB CONC 33.1 % (32.0-36.0); MONO % 8.5 % (0.0-8.0); NEUT % 64.9 % (16.0-70.0); PLATELET COUNT 231 TH/MM3 (150-450); RED BLOOD COUNT 3.76 MIL/MM3 (4.00-5.30); RED CELL DISTRIBUTION WIDTH 15.5 % (11.6-17.2)
[2016-12-28] MEDS ORDERED: VANCOMYCIN INJ 1,000 MG in SODIUM CHLOR 0.9% 250 ML INJ 250 ML IV ONE (21:30)
[2016-12-28 21:31] LABS: BACTERIA, URINE OCC /hpf; BLOOD, URINE SMALL (NEG); CALCIUM OXALATE CRYSTALS,URINE OCC /hpf; GLUCOSE,URINE NEG (NEG); HYALINE CAST, URINE 1 /lpf (RARE); KETONE, URINE NEG (NEG); MUCUS URINE FEW /lpf (OCC); NITRITE,URINE POS (NEG); PH, URINE 5.5 (5.0-8.5); SQUAMOUS EPITHELIAL CELL URINE 1 /hpf (0-5); URINE COLOR YELLOW (YELLW/STRAW)
[2016-12-28 21:32] LABS: COMMENT (UR) CATH-CULTURE IND; CULTURE IF INDICATED CATH CULTURE IND
[2016-12-28 21:40] VITALS: BP 117/68; PULSE 74; RESP 18; O2SAT 98
[2016-12-28 21:45] LABS: ANION GAP 6 MEQ/L (5-15); AST (GOT) 10 U/L (15-37); BICARBONATE 29.1 MEQ/L (21.0-32.0); BLOOD UREA NITROGEN 13 MG/DL (7-18); CHLORIDE 107 MEQ/L (98-107); GLOMERULAR FILTRATION RATE 64 ML/MIN (>89); POTASSIUM 3.4 MEQ/L (3.5-5.1); SODIUM (NA) 142 MEQ/L (136-145)
[2016-12-28 21:46] LABS: ALT (GPT) 16 U/L (10-53)
[2016-12-28 21:48] LABS: ALKALINE PHOSPHATASE 77 U/L (45-117); TOTAL BILIRUBIN ADULT 0.5 MG/DL (0.2-1.0)
[2016-12-28] MEDS ORDERED: NS IV ONE ×2 (22:00)
[2016-12-28] MEDS ORDERED: CILASTATIN IV ONE ×2 (22:00)
[2016-12-28] MEDS ORDERED: IMIPENEM IV ONE ×2 (22:00)
[2016-12-28] MEDS ORDERED: Vancomycin Consult Pharmacy 1 EA OTHER SCH (22:45)
[2016-12-28 23:07] VITALS: BP 133/78; PULSE 87; RESP 17; TEMP 98.4; O2SAT 98
[2016-12-29] VITALS (7 sets, daily range): BP systolic 124–139; BP diastolic 64–74; PULSE 71–88; RESP 16–18; TEMP 97.5–99.3; O2SAT 94–98
[2016-12-29] MEDS: PIPERACIL-TAZO 3.375 GM PREMIX 50 ML IV SCH ×5 (01:50→23:43)
[2016-12-29] MEDS: RESP: IPRATROPIUM 0.5 MG/2.5 ML NEB NEB SCH ×4 (04:35→19:52)
[2016-12-29] MEDS: ONDANSETRON HCL 4 MG/2 ML VIAL IV PRN (07:35)
--- NOTE | 2016-12-29 14:11 | HHI.HP ---
HPI Service [facility] Primary Care Physician John Bloom Jr, MD Admission Diagnosis bronchopna Chief Complaint: cough. weak hands Travel History International Travel<30 Days: No Contact w/Intl Traveler <30 Da: No Traveled to Known Affected Are: No History of Present Illness Pt is 61 yo woman with advance multiple sclerosis. Weekly plasmapheresis on Friday Past 2 - 3 weeks productive yellow/green cough. Received around 11 days levaquin. no improvement. Seen in ED and had sputum and blood cx..diagnosed with bronchitis then discharged. Called back to ED 12/28 for positive sputum mrsa/pseudomonas and blood cx staph epi 06/08 Pt says her hands were also getting weak and MS starting to flare. She has also missed her last 2 treatments. ED gave Primaxin as best ALEJANDRA. Vanco also started. She was then given zosyn and most abx have poor alejandra This morning pt says she is feeling stronger and breathing seems better as well. Review of Systems Other cough/productive hand weakness. Past Family Social History Past Medical History Multiple sclerosis diagnosed in late 2012 requiring plasmapheresis weekly Fibromyalgia Bipolar disorder History of obesity Hypertension Lupus Fibromyalgia Gastroparesis Recurrent UTIs chronic indwelling suprapubic cath. changed monthly 2004 the patient had C3 through C6 anterior cervical discectomy and arthrodesis for severe cervical stenosis and myelopathy 2008 the patient had again the same diagnosis but had C6-C7 anterior cervical discectomy and arthrodesis 2010 the patient had open reduction, internal fixation of a right ankle fracture Right distal fibula fracture Torn lateral meniscus last year and underwent arthroscopic surgery Laparoscopic cholecystectomy Hysterectomy Suprapubic catheter placement PermCath placement Reported Medications Guaifenesin DM Liq (Guaifenesin-Dextromethorphan Liq) 10-100 Mg/5 Ml Liq 10 Ml PO Q6HR PRN Dilaudid (Hydromorphone HCl) 4 Mg Tab 4 Mg PO Q8H PRN Ipratropium Neb (Ipratropium [place]) 0.5 Mg/2.5 Ml Amp 0.5 Mg NEB Q4HR NEB Neurontin (Gabapentin) 300 Mg Cap 300 Mg PO DAILY@1300 Neurontin (Gabapentin) 300 Mg Cap 600 Mg PO BID Rebif Rebidose Pen Inj (Interferon Beta 1a) 44 Mcg/0.5 Ml Pen 44 Mcg SQ MOWEFR Inject 44mcg sq three times a week on Friday,Friday and Friday Hiprex (Methenamine Hippurate) 1 Gm Tab 1 Gm PO BID Cranberry Urinary Comfort (Vitamins C & E) 1 Cap 1 Cap PO DAILY Lisinopril 20 Mg Tab 20 Mg PO DAILY Toviaz ER (Fesoterodine Fumarate) 8 Mg Lou 8 Mg PO DAILY Nifedipine 10 Mg Cap 30 Mg PO HS Furosemide 40 Mg Tab 40 Mg PO DAILY Protonix (Pantoprazole Sodium) 20 Mg Tab 20 Mg PO DAILY Procardia XL (Nifedipine) 60 Mg Tab 60 Mg PO DAILY Plaquenil (Hydroxychloroquine Sulfate) 200 Mg Tab 200 Mg PO BID Take with food Potassium Chloride ER (Potassium Chloride) 20 Meq Tab 20 Meq PO DAILY Catapres (Clonidine) 0.2 Mg Tab 0.2 Mg PO TID Aspirin 325 Mg Tab 325 Mg PO DAILY D 32563 (Cholecalciferol) 10,000 Unit Cap 10,000 Units PO DAILY Vitamin B Complex (B-Complex Vitamins) 1 Tab 1 Tab PO DAILY Allergies: Coded Allergies: acetaminophen (Unverified Allergy, Severe, ITCHING, 12/28/16) adhesive (Unverified Allergy, Severe, Rash, 12/28/16) albuterol (Unverified Allergy, Severe, SORES, 12/28/16) codeine (Unverified Allergy, Severe, SWELLING AND DIFFICULTY BREATHING, ) hydrocodone (Unverified Allergy, Severe, RASH AND SWELLING, 12/28/16) isradipine (Unverified Allergy, Severe, ELEVATED HEART RATE, 12/28/16) methylprednisolone (Unverified Allergy, Severe, Shortness of Breath, ) oxycodone (Unverified Allergy, Severe, ITCHING, 12/28/16) *MDRO Multi-Drug Resistant Organism (Verified Adverse Reaction, Unknown, ) 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 They have been together for over 30 years. She has 2 adult children one son who lives in [place] and a daughter who lives in [place] Never smoked tobacco. Does not drink alcohol. Denies illicit drugs. 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 Physical Exam Vital Signs oriented heart reg lung course rhonci/wheeze molly. abd s/nt/spc to drainage ext no edema chest tunneled line. Vital Signs Date Time Temp Pulse Resp B/P (MAP) Pulse Ox O2 Delivery O2 Flow Rate FiO2 12/29/16 12:00 98.7 76 18 139/70 (93) 95 12/29/16 08:00 97.9 77 17 130/69 (89) 96 12/29/16 06:31 98.1 71 16 124/64 (84) 97 12/29/16 04:25 97.8 79 17 126/65 (85) 98 12/28/16 23:07 98.4 87 17 133/78 (96) 98 12/28/16 23:00 12/28/16 21:40 74 18 117/68 (84) 98 Room Air 12/28/16 20:01 98.6 70 15 111/75 (87) 99 Room Air Laboratory Laboratory Tests Test 12/28/16 21:00 12/28/16 21:05 12/28/16 21:06 Lactic Acid Level 0.9 Urine Color YELLOW Urine Turbidity HAZY Urine pH 5.5 Urine Specific [place] 1.027 Urine Protein 100 Urine Glucose (UA) NEG Urine Ketones NEG Urine Occult Blood SMALL Urine Nitrite POS Urine Bilirubin NEG Urine Urobilinogen LESS THAN 2.0 Urine Leukocyte Esterase LARGE Urine RBC 26 Urine WBC 101 Urine Squamous Epithelial Cells 1 Urine Calcium Oxalate Crystals OCC Urine Bacteria OCC Urine Hyaline Casts 1 Urine Mucus FEW Urine Yeast (Budding) MOD Microscopic Urinalysis Comment CATH-CULTURE IND White Blood Count 8.0 Red Blood Count 3.76 Hemoglobin 10.4 Hematocrit 31.6 Mean Corpuscular Volume 83.9 Mean Corpuscular Hemoglobin 27.8 Mean Corpuscular Hemoglobin Concent 33.1 Red Cell Distribution Width 15.5 Platelet Count 231 Mean Platelet Volume 7.4 Neutrophils (%) (Auto) 64.9 Lymphocytes (%) (Auto) 19.8 Monocytes (%) (Auto) 8.5 Eosinophils (%) (Auto) 6.0 Basophils (%) (Auto) 0.8 Neutrophils # (Auto) 5.2 Lymphocytes # (Auto) 1.6 Monocytes # (Auto) 0.7 Eosinophils # (Auto) 0.5 Basophils # (Auto) 0.1 CBC Comment DIFF FINAL Differential Comment Blood Urea Nitrogen 13 Creatinine 1.06 Random Glucose 98 Total Protein 6.7 Albumin 3.4 Calcium Level 9.1 Alkaline Phosphatase 77 Aspartate Amino Transf (AST/SGOT) 10 Alanine Aminotransferase (ALT/SGPT) 16 Total Bilirubin 0.5 Sodium Level 142 Potassium Level 3.4 Chloride Level 107 Carbon Dioxide Level 29.1 Anion Gap 6 Estimat Glomerular Filtration Rate 64 Date/Time Source Procedure Growth Status 12/28/16 21:05 Blood Peripheral Aerobic Blood Culture - Preliminary NO GROWTH IN 1 DAY Resulted 12/28/16 21:05 Blood Peripheral Anaerobic Blood Culture - Preliminary NO GROWTH IN 1 DAY Resulted 12/29/16 09:10 Sputum Expectorated Sputum Gram Stain Pending Received 12/29/16 09:10 Sputum Expectorated Sputum Sputum Culture Pending Received 12/28/16 21:05 Urine Catheterized Urine Urine Culture Pending Received Result Diagram: 12/28/16210512/28/162105 Bobrini VTE Risk Assessment Caprini VTE Risk Assessment: Mod/High Risk (score >= 2) Caprini Risk Assessment Model Point Value = 1 Point Value = 2 Point Value = 3 Point Value = 5 Age 41-60 Minor surgery BMI > 25 kg/m2 Swollen legs Varicose veins or History of unexplained or recurrent spontaneous Oral contraceptives or hormone replacement Sepsis (< 1 month) Serious lung disease, including pneumonia (< 1 month) Abnormal pulmonary function Acute myocardial infarction Congestive heart failure (< 1 month) History of inflammatory bowel disease Medical patient at bed rest Age 61-74 Arthroscopic surgery Major open surgery (> 45 min) Laparoscopic surgery (> 45 min) Malignancy Confined to bed (> 72 hours) Immobilizing plaster cast Central venous access Age >= 75 History of VTE Family history of VTE Factor V Leiden Prothrombin [id number] Lupus anticoagulant Anticardiolipin antibodies Elevated serum homocysteine Heparin-induced thrombocytopenia Other congenital or acquired thrombophilia Stroke (< 1 month) Elective arthroplasty Hip, pelvis, or leg fracture Acute spinal cord injury (< 1 month) Prophylaxis Regimen Total Risk Factor Score Risk Level Prophylaxis Regimen 0-1 Low Early ambulation 2 Moderate Order ONE of the following: *Sequential Compression Device (SCD) *Heparin 5000 units SQ BID 3-4 Higher Order ONE of the following medications: *Heparin 5000 units SQ TID *Enoxaparin/Lovenox 40 mg SQ daily (WT < 150 kg, CrCl > 30 mL/min) *Enoxaparin/Lovenox 30 mg SQ daily (WT < 150 kg, CrCl > 10-29 mL/min) *Enoxaparin/Lovenox 30 mg SQ BID (WT < 150 kg, CrCl > 30 mL/min) AND/OR *Sequential Compression Device (SCD) 5 or more Highest Order ONE of the following medications: *Heparin 5000 units SQ TID (Preferred with Epidurals) *Enoxaparin/Lovenox 40 mg SQ daily (WT < 150 kg, CrCl > 30 mL/min) *Enoxaparin/Lovenox 30 mg SQ daily (WT < 150 kg, CrCl > 10-29 mL/min) *Enoxaparin/Lovenox 30 mg SQ BID (WT < 150 kg, CrCl > 30 mL/min) AND *Sequential Compression Device (SCD) Assessment and Plan Problem List: (1) Bronchopneumonia ICD Codes: J18.0 - Bronchopneumonia, unspecified organism Plan: Pt is 61 yo woman with advance multiple sclerosis. Weekly plasmapheresis on Friday Past 2 - 3 weeks productive yellow/green cough. Received around 11 days levaquin. no improvement. Seen in ED and had sputum and blood cx..diagnosed with bronchitis then discharged. Called back to ED 12/28 for positive sputum mrsa/pseudomonas and blood cx staph epi 06/08 Pt says her hands were also getting weak and MS starting to flare. She has also missed her last 2 treatments. ED gave Primaxin as best ALEJANDRA. Vanco also started. She was then given zosyn and most abx have poor alejandra Will consult ID for opinion as she may need a carbapenem cont scheduled duonebs scheduled mucolytics dvt prophylaxis Her SPC was changed recently on 12/19 PT eval Will notify her hem/onc doctor tomorrow that she is here(Dr Trevino) (2) Multiple sclerosis ICD Codes: G35 - Multiple sclerosis Status: Chronic (3) Chronic indwelling Mendoza catheter ICD Codes: Z92.89 - Personal history of other medical treatment Status: Chronic (4) Essential hypertension ICD Codes: I10 - Essential (primary) hypertension Status: Chronic (5) Fibromyalgia ICD Codes: M79.7 - Fibromyalgia Status: Chronic (6) HTN (hypertension), benign ICD Codes: I10 - Benign hypertension Status: Chronic (7) Lupus (systemic lupus erythematosus) ICD Codes: M32.9 - Systemic lupus erythematosus, unspecified Status: Chronic Physician Certification 2 Midnight Certification Type: Admission for Inpatient Services Order for Inpatient Services 3The services are ordered in accordance with Medicare regulations or non- Medicare payer requirements, as applicable. In the case of services not specified as inpatient-only, they are appropriately provided as inpatient services in accordance with the 2-midnight benchmark. Estimated LOS (days): 3 3 days is the estimated time the patient will need to remain in the hospital, assuming treatment plan goals are met and no additional complications. Post-Hospital Plan: Home Alex Morales MD Dec 29, 2016 14:11
[2016-12-29] MEDS ORDERED: guaiFENesin SOLUTION 200 MG/10 ML CUP PO PRN (14:15)
[2016-12-29] MEDS ORDERED: guaiFENesin E.R. 600 MG TAB PO ONE (15:00)
[2016-12-29] MEDS: cloNIDine HCL 0.2 MG TAB PO SCH (17:14)
[2016-12-29] MEDS: VANCOMYCIN INJ 2,000 MG in SODIUM CHLORID 0.9% 500 ML INJ 500 ML IV SCH (20:57)
[2016-12-29] MEDS: NIFEdipine 10 MG CAP PO SCH (21:00)
[2016-12-29] MEDS: HYDROXYCHLOROQUINE SULFATE 200 MG TAB PO SCH (21:00)
[2016-12-29] MEDS: guaiFENesin E.R. 600 MG TAB PO SCH (21:00)
[2016-12-29] MEDS: GABAPENTIN 300 MG CAP PO SCH (21:01)
[2016-12-29 21:06] LABS: AUTOMATED NEUTROPHIL # 4.1 TH/MM3 (1.8-7.7); BASOPHIL # 0.1 TH/MM3 (0-0.2); BASOPHIL % 0.9 % (0.0-2.0); EOSINOPHIL # 0.4 TH/MM3 (0-0.4); EOSINOPHIL % 6.5 % (0.0-4.0); HEMATOCRIT 30.5 % (35.0-46.0); HEMO FLAGS DIFF FINAL; LYMPH % 21.1 % (9.0-44.0); LYMPHOCYTE # 1.5 TH/MM3 (1.0-4.8); MEAN CELL VOLUME 84.1 FL (80.0-100.0); MEAN CORPUSCULAR HEMOGLOBIN 27.1 PG (27.0-34.0); MEAN CORPUSCULAR HGB CONC 32.2 % (32.0-36.0); MONO % 12.3 % (0.0-8.0); NEUT % 59.2 % (16.0-70.0); PLATELET COUNT 223 TH/MM3 (150-450); RED BLOOD COUNT 3.62 MIL/MM3 (4.00-5.30); RED CELL DISTRIBUTION WIDTH 15.8 % (11.6-17.2); WHITE BLOOD COUNT 6.9 TH/MM3 (4.0-11.0)
[2016-12-29 21:15] LABS: BICARBONATE 27.2 MEQ/L (21.0-32.0); POTASSIUM 3.4 MEQ/L (3.5-5.1)
[2016-12-30] VITALS (7 sets, daily range): BP systolic 119–137; BP diastolic 57–78; PULSE 59–83; RESP 18–20; TEMP 96.5–98; O2SAT 94–98
[2016-12-30] MEDS: PIPERACIL-TAZO 3.375 GM PREMIX 50 ML IV SCH ×3 (04:21→19:09)
[2016-12-30] MEDS: RESP: IPRATROPIUM 0.5 MG/2.5 ML NEB NEB SCH ×6 (04:46→19:43)
[2016-12-30 06:39] LABS: BICARBONATE 25.7 MEQ/L (21.0-32.0); POTASSIUM 3.2 MEQ/L (3.5-5.1)
--- NOTE | 2016-12-30 09:48 | PD.CONS ---
History of Present Illness Service Infectious Disease Consult Requested By Dr Elizondo Reason for Consult Evaluate patient with MRSA and PSAE pneumonia Primary Care Physician John Bloom Jr, MD Diagnoses: History of Present Illness Patient seen and examined. Records reviewed. Patient is a 61 year old female, with known MS, admitted to the hospital after her BC came back (+) and he sputum C/S with MRSA and PSAE. Patient states that she has been sick since the early part of December. She had generalized malaise, and was having some productive cough. It was initially white in color and then it became yellow. She also has had some diarrhea in the beginning which has resolved, as well as vomiting. She continues to have vomiting at least 3 times a day but since she's been taking Zofran that has improved. She's had intermittent fevers the highest has been about 101. Patient gets plasmapheresis every Friday, and she missed a treatment about 2 weeks ago. She went for her treatment on December 24, and at that time she had mentioned that she was having some coughing. She was instructed to go the emergency room , and in the ER she was afebrile. And her chest x-ray did not show any consolidation. 2 blood cultures were done at that time as well as the sputum. Prior to that visit patient has been taking Levaquin as prescribed by her primary care physician. Patient stated that she was given some cough medication and was discharge. Her blood cultures are now reported as growing staph epidermides, and her sputum with MRSA and Pseudomonas. Patient was called back in to the hospital and admitted. Since admission she has not had any fever. She is still coughing up some yellowish phlegm. She gets some dyspnea on exertion. She has occasional pain on her chest when she has a lot of coughing episodes. Her chest x-ray now is showing some basilar infiltrates. Infectious disease consultation has been requested to evaluate the patient. Review of Systems Constitutional: COMPLAINS OF: Fever, Change in appetite Eyes: DENIES: Eye pain Ears, nose, mouth, throat: DENIES: Nasal discharge, Oral lesions, Throat pain, Hoarseness, Ear Pain, Sinus Pain, Toothache Respiratory: COMPLAINS OF: Cough, Sputum production, Shortness of breath, DENIES: Hemoptysis Cardiovascular: COMPLAINS OF: Chest pain, Dyspnea on Exertion, DENIES: Palpitations, Syncope Gastrointestinal: COMPLAINS OF: Nausea, Vomiting, DENIES: Abdominal pain, Diarrhea, Difficulty Swallowing, Anorexia Musculoskeletal: DENIES: Muscle aches Integumentary: DENIES: Rash Neurologic: COMPLAINS OF: Localized weakness, DENIES: Headache Psychiatric: DENIES: Hallucinations Past Family Social History Allergies: Coded Allergies: acetaminophen (Unverified Allergy, Severe, ITCHING, 12/28/16) adhesive (Unverified Allergy, Severe, Rash, 12/28/16) albuterol (Unverified Allergy, Severe, SORES, 12/28/16) codeine (Unverified Allergy, Severe, SWELLING AND DIFFICULTY BREATHING, ) hydrocodone (Unverified Allergy, Severe, RASH AND SWELLING, 12/28/16) isradipine (Unverified Allergy, Severe, ELEVATED HEART RATE, 12/28/16) methylprednisolone (Unverified Allergy, Severe, Shortness of Breath, ) oxycodone (Unverified Allergy, Severe, ITCHING, 12/28/16) *MDRO Multi-Drug Resistant Organism (Verified Adverse Reaction, Unknown, ) 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 changed monthly 2004 the patient had C3 through C6 anterior cervical discectomy and arthrodesis for severe cervical stenosis and myelopathy 2008 the patient had again the same diagnosis but had C6-C7 anterior cervical discectomy and arthrodesis 2010 the patient had open reduction, internal fixation of a right ankle fracture Right distal fibula fracture Torn lateral meniscus last year and underwent arthroscopic surgery Laparoscopic cholecystectomy Hysterectomy Suprapubic catheter placement PermCath placement Active Ordered Medications Aspirin Clonidine LAsix Neurontin Mucinex Dilaudid Plaquenil Atrovent Prinivil Procardia Zofran Protonix Zosyn Potassium Vancomycin Family History Non-contributory Social History Lives at home with No smoking Denies ETOH abuse No illicit drugs Physical Exam Vital Signs Vital Signs Date Time Temp Pulse Resp B/P (MAP) Pulse Ox O2 Delivery O2 Flow Rate FiO2 12/30/16 08:14 97 12/30/16 08:00 97.8 83 20 137/78 (97) 95 12/30/16 00:00 97.9 79 18 126/67 (86) 94 12/29/16 20:00 97.5 88 18 131/74 (93) 96 12/29/16 19:54 96 12/29/16 16:00 99.3 71 16 139/72 (94) 94 12/29/16 12:00 98.7 76 18 139/70 (93) 95 Physical Exam GENERAL: Patient is a well-nourished, well-developed female, awake and alert , not in respiratory distress. SKIN: Warm and dry. No generalized rash, no ecchymoses and no evidence of embolic lesions. HEAD: Atraumatic. Normocephalic. No temporal wasting, or tenderness. EYES: [place] conjunctiva. No petechia or hemorrhage. Pupils equal, round and reactive to light. Extraocular movements full and intact. No scleral icterus. No injection or drainage. EARS, NOSE AND THROAT: Nose without bleeding or purulent nasal discharge. No sinus tenderness. Mucous membranes pink and moist. No oral lesions noted. No exudate. No oral thrush. NECK: Trachea midline. Supple and not tender, no meningeal signs. Permacath tunnelled to her RIJ, and has no evidence of infection. CARDIOVASCULAR: Regular rate and rhythm. No murmurs, rubs or gallops heard RESPIRATORY: Clear to auscultation. Breath sounds equal bilaterally. No rales , wheezing or rhonchi. Decreased BS at the bases. Scar on her L chest from previous permacath, no tenderness or redness ABDOMEN: Soft, non-tender, nondistended. Bowel sounds present and normoactive. No guarding. No rebound. No organomegaly. : SPC in place, site ok, urine looks ok EXTREMITIES: No clubbing, cyanosis, or edema. No joint effusion. No calf tenderness. Well perfused and warm. NEUROLOGICAL: Awake and alert. Cranial nerves grossly intact. weakness in her BLE. PSYCHIATRIC: Normal affect, calm and cooperative. LINE: No evidence of infection in her RIJ permacath. PIV ok. Laboratory Laboratory Tests Test 12/29/16 20:46 12/30/16 05:09 White Blood Count 6.9 Red Blood Count 3.62 Hemoglobin 9.8 Hematocrit 30.5 Mean Corpuscular Volume 84.1 Mean Corpuscular Hemoglobin 27.1 Mean Corpuscular Hemoglobin Concent 32.2 Red Cell Distribution Width 15.8 Platelet Count 223 Mean Platelet Volume 6.9 Neutrophils (%) (Auto) 59.2 Lymphocytes (%) (Auto) 21.1 Monocytes (%) (Auto) 12.3 Eosinophils (%) (Auto) 6.5 Basophils (%) (Auto) 0.9 Neutrophils # (Auto) 4.1 Lymphocytes # (Auto) 1.5 Monocytes # (Auto) 0.9 Eosinophils # (Auto) 0.4 Basophils # (Auto) 0.1 CBC Comment DIFF FINAL Differential Comment Blood Urea Nitrogen 12 8 Creatinine 1.15 1.00 Random Glucose 103 102 Calcium Level 8.8 8.7 Sodium Level 143 146 Potassium Level 3.4 3.2 Chloride Level 110 111 Carbon Dioxide Level 27.2 25.7 Anion Gap 6 9 Estimat Glomerular Filtration Rate 58 68 Date/Time Source Procedure Growth Status 12/28/16 21:05 Blood Peripheral Aerobic Blood Culture - Preliminary NO GROWTH IN 1 DAY Resulted 12/28/16 21:05 Blood Peripheral Anaerobic Blood Culture - Preliminary NO GROWTH IN 1 DAY Resulted 12/29/16 09:10 Sputum Expectorated Sputum Gram Stain Pending Received 12/29/16 09:10 Sputum Expectorated Sputum Sputum Culture Pending Received 12/28/16 21:05 Urine Catheterized Urine Urine Culture - Preliminary Gram Negative Ubaldo Group D Enterococcus Resulted Result Diagram: 12/29/16204512/30/16 0509 Imaging RADIOLOGY STUDIES/FILMS REVIEWED Chest X-Ray 12/28/162045 Signed Impressions: Service Date/Time: Wednesday, December 28, 2016 21:00 - CONCLUSION: 1. Right basilar streakiness consistent with atelectasis and/or mild infiltrate. Clinical correlation is recommended. Manuel Adam MD Assessment and Plan Assessment and Plan IMPRESSION PNA, patient with known MS, C/S with MRSA and PSAE UTI, has SPC, C/S with GNR and Enterococcus (+) BC with Staph epi, concern is her permacath, and CABSI Multiple sclerosis - on plasmapheresis Known Lupus RECOMMENDATION Follow cultures and adjust Abx If patient gouing for pheresis, will ask to get BC from her permacath If BC (+) again, will need to look at removing her permacath Continue Vancomycin Continue Zosyn Will find out when the last time her SPC was changed Monitor progress I will follow along with you Thankk you for this consultation Discussed Condition With Explained plan to the patient Mili Wynn MD Dec 30, 2016 09:48
--- NOTE | 2016-12-30 11:04 | HHI.PR ---
Subjective Remarks Pt feels that the breathing is better with the breathing treatment Her cough is slightly better, she is not bringing much up She has been afebrile. Objective Vitals Vital Signs Date Time Temp Pulse Resp B/P (MAP) Pulse Ox O2 Delivery O2 Flow Rate FiO2 12/30/16 08:14 97 12/30/16 08:00 97.8 83 20 137/78 (97) 95 12/30/16 00:00 97.9 79 18 126/67 (86) 94 12/29/16 20:00 97.5 88 18 131/74 (93) 96 12/29/16 19:54 96 12/29/16 16:00 99.3 71 16 139/72 (94) 94 12/29/16 12:00 98.7 76 18 139/70 (93) 95 Result Diagram: 12/29/16204512/30/16 0509 Other Results Laboratory Tests Test 12/28/16 21:00 12/28/16 21:05 12/28/16 21:06 12/29/16 20:46 Lactic Acid Level 0.9 mmol/L Urine Color YELLOW Urine Turbidity HAZY Urine pH 5.5 Urine Specific [place] 1.027 Urine Protein 100 mg/dL Urine Glucose (UA) NEG mg/dL Urine Ketones NEG mg/dL Urine Occult Blood SMALL Urine Nitrite POS Urine Bilirubin NEG Urine Urobilinogen LESS THAN 2.0 MG/DL Urine Leukocyte Esterase LARGE Urine RBC 26 /hpf Urine WBC 101 /hpf Urine Squamous Epithelial Cells 1 /hpf Urine Calcium Oxalate Crystals OCC /hpf Urine Bacteria OCC /hpf Urine Hyaline Casts 1 /lpf Urine Mucus FEW /lpf Urine Yeast (Budding) MOD Microscopic Urinalysis Comment CATH-CULTURE IND White Blood Count 8.0 TH/MM3 6.9 TH/MM3 Red Blood Count 3.76 MIL/MM3 3.62 MIL/MM3 Hemoglobin 10.4 GM/DL 9.8 GM/DL Hematocrit 31.6 % 30.5 % Mean Corpuscular Volume 83.9 FL 84.1 FL Mean Corpuscular Hemoglobin 27.8 PG 27.1 PG Mean Corpuscular Hemoglobin Concent 33.1 % 32.2 % Red Cell Distribution Width 15.5 % 15.8 % Platelet Count 231 TH/MM3 223 TH/MM3 Mean Platelet Volume 7.4 FL 6.9 FL Neutrophils (%) (Auto) 64.9 % 59.2 % Lymphocytes (%) (Auto) 19.8 % 21.1 % Monocytes (%) (Auto) 8.5 % 12.3 % Eosinophils (%) (Auto) 6.0 % 6.5 % Basophils (%) (Auto) 0.8 % 0.9 % Neutrophils # (Auto) 5.2 TH/MM3 4.1 TH/MM3 Lymphocytes # (Auto) 1.6 TH/MM3 1.5 TH/MM3 Monocytes # (Auto) 0.7 TH/MM3 0.9 TH/MM3 Eosinophils # (Auto) 0.5 TH/MM3 0.4 TH/MM3 Basophils # (Auto) 0.1 TH/MM3 0.1 TH/MM3 CBC Comment DIFF FINAL DIFF FINAL Differential Comment Blood Urea Nitrogen 13 MG/DL 12 MG/DL Creatinine 1.06 MG/DL 1.15 MG/DL Random Glucose 98 MG/DL 103 MG/DL Total Protein 6.7 GM/DL Albumin 3.4 GM/DL Calcium Level 9.1 MG/DL 8.8 MG/DL Alkaline Phosphatase 77 U/L Aspartate Amino Transf (AST/SGOT) 10 U/L Alanine Aminotransferase (ALT/SGPT) 16 U/L Total Bilirubin 0.5 MG/DL Sodium Level 142 MEQ/L 143 MEQ/L Potassium Level 3.4 MEQ/L 3.4 MEQ/L Chloride Level 107 MEQ/L 110 MEQ/L Carbon Dioxide Level 29.1 MEQ/L 27.2 MEQ/L Anion Gap 6 MEQ/L 6 MEQ/L Estimat Glomerular Filtration Rate 64 ML/MIN 58 ML/MIN Test 12/30/16 05:09 Blood Urea Nitrogen 8 MG/DL Creatinine 1.00 MG/DL Random Glucose 102 MG/DL Calcium Level 8.7 MG/DL Sodium Level 146 MEQ/L Potassium Level 3.2 MEQ/L Chloride Level 111 MEQ/L Carbon Dioxide Level 25.7 MEQ/L Anion Gap 9 MEQ/L Estimat Glomerular Filtration Rate 68 ML/MIN Imaging Last Impressions Chest X-Ray 12/28/162045 Signed Impressions: Service Date/Time: Wednesday, December 28, 2016 21:00 - CONCLUSION: 1. Right basilar streakiness consistent with atelectasis and/or mild infiltrate. Clinical correlation is recommended. Mnauel Adam MD Objective Remarks General: NAD, AAOx3 Chest: Coarse breath sounds bilaterally, improving Cardiac: Regular Abd: +BS, soft ND/NT, SPC in place Ext: No edema A/P Problem List: (1) Bronchopneumonia ICD Codes: J18.0 - Bronchopneumonia, unspecified organism Plan: - Pt is 61 yo woman with advance multiple sclerosis. She has been receiving weekly plasmapheresis on Friday - She presented to the ED with complaints of productive cough that began around 2 - 3 weeks ago. Received around 11 days Levaquin initially but no improvement. - Pt was seen in ED and had sputum and blood cx on 12/24 and was diagnosed with bronchitis then discharged. - Pt was called back to ED 12/28 for positive sputum MRSA/pseudomonas and blood cx staph epi / - Pt says her hands were also getting weak and MS starting to flare. She has also missed her last 2 treatments. - SPC was last changed around 12/19 per the pt. It is changed monthly per the pt. - In the ED pt was given Primaxin as best ALEJANDRA. Vanco also started. She was then given Zosyn and most abx have poor alejandra - ID following to help with antibiotic recommendations as she may need a carbapenem - Cont scheduled duonebs - Cont. scheduled mucolytics - Blood cultures drawn on 12/28 with 3/4 growing gram positive cocci - PT evaluation - Consult Dr. Trevino regarding her plasmapheresis. We will draw a blood culture from her Permacath - DVT prophylaxis (2) Multiple sclerosis ICD Codes: G35 - Multiple sclerosis Status: Chronic Plan: - Pt has missed her last two plasmapheresis sessions - Will consult Dr. Trevino to see about resuming this - Pt reports weakness in the UE (3) Chronic indwelling Mendoza catheter ICD Codes: Z92.89 - Personal history of other medical treatment Status: Chronic Plan: - SPC last changed on 12/19 (4) Essential hypertension ICD Codes: I10 - Essential (primary) hypertension Status: Chronic (5) Fibromyalgia ICD Codes: M79.7 - Fibromyalgia Status: Chronic (6) Lupus (systemic lupus erythematosus) ICD Codes: M32.9 - Systemic lupus erythematosus, unspecified Status: Chronic Assessment and Plan Patient examined. Assessment and plan formulated with Katherin Nava PA-C. I agree with the above. Katherin Nava Dec 30, 2016 11:04 Jan Stevens DO Jan 02, 2017 01:18
[2016-12-30] MEDS: cloNIDine HCL 0.2 MG TAB PO SCH ×3 (11:10→19:10)
[2016-12-30] MEDS: GABAPENTIN 300 MG CAP PO SCH ×3 (11:11→20:12)
[2016-12-30] MEDS: POTASSIUM CHLORIDE 20 MEQ CONTROLLED RELEASE TAB PO SCH (11:11)
[2016-12-30] MEDS: guaiFENesin E.R. 600 MG TAB PO SCH ×2 (11:11→20:12)
[2016-12-30] MEDS: HYDROXYCHLOROQUINE SULFATE 200 MG TAB PO SCH ×2 (11:11→20:10)
[2016-12-30] MEDS: NIFEdipine 60 MG SUSTAINED RELEASE TAB PO SCH (11:11)
[2016-12-30] MEDS: FUROSEMIDE 40 MG TAB PO SCH (11:12)
[2016-12-30] MEDS: PANTOPRAZOLE SOD 20 MG DELAYED RELEASE TAB PO SCH (11:12)
[2016-12-30] MEDS: ASPIRIN 325 MG TAB PO SCH (11:12)
[2016-12-30] MEDS: LISINOPRIL 20 MG TAB PO SCH (11:20)
[2016-12-30] MEDS ORDERED: HEPARIN SODIUM - SQ 10,000 UNITS/ML VIAL IV FLUSH SCH (16:00)
[2016-12-30] MEDS: HYDROmorphone HCL 4 MG TAB PO PRN (19:10)
[2016-12-30] MEDS: NIFEdipine 10 MG CAP PO SCH (20:11)
[2016-12-30] MEDS: VANCOMYCIN INJ 2,000 MG in SODIUM CHLORID 0.9% 500 ML INJ 500 ML IV SCH (20:13)
[2016-12-31] VITALS (8 sets, daily range): BP systolic 99–127; BP diastolic 57–76; PULSE 62–82; RESP 18–22; TEMP 96.3–98.1; O2SAT 95–99
[2016-12-31] MEDS: PIPERACIL-TAZO 3.375 GM PREMIX 50 ML IV SCH ×5 (00:54→21:18)
[2016-12-31] MEDS: RESP: IPRATROPIUM 0.5 MG/2.5 ML NEB NEB SCH ×6 (02:14→20:35)
[2016-12-31 06:54] LABS: AUTOMATED NEUTROPHIL # 3.9 TH/MM3 (1.8-7.7); BASOPHIL # 0.1 TH/MM3 (0-0.2); BASOPHIL % 0.8 % (0.0-2.0); EOSINOPHIL # 0.7 TH/MM3 (0-0.4); HEMATOCRIT 32.5 % (35.0-46.0); HEMO FLAGS DIFF FINAL; LYMPHOCYTE # 1.5 TH/MM3 (1.0-4.8); MEAN CELL VOLUME 84.7 FL (80.0-100.0); MEAN CORPUSCULAR HEMOGLOBIN 27.3 PG (27.0-34.0); MEAN CORPUSCULAR HGB CONC 32.2 % (32.0-36.0); MONO % 10.3 % (0.0-8.0); NEUT % 56.9 % (16.0-70.0); PLATELET COUNT 225 TH/MM3 (150-450); RED BLOOD COUNT 3.84 MIL/MM3 (4.00-5.30); RED CELL DISTRIBUTION WIDTH 15.8 % (11.6-17.2); WHITE BLOOD COUNT 6.8 TH/MM3 (4.0-11.0)
--- NOTE | 2016-12-31 07:09 | MB ---
cc: MELE STEVENS RUBY ANNE E. M.D. DATE OF 1955 DATE OF SERVICE 12/30/[address] Stevens CHIEF COMPLAINT Dr. Stevens requested consultation for Ms. Tripathi regarding pheresis for MS exacerbation. HISTORY OF PRESENT ILLNESS Mrs. Han is a well-known 61-year-old woman with a history of multiple sclerosis. She is under the care Dr. Suggs and has been on Aubagio daily. She is also receiving plasmapheresis weekly. She felt too ill to receive her plasmapheresis last week. She is due for her plasmapheresis tomorrow. Apparently when she was feeling ill last week she was referred to the emergency room for evaluation. She was diagnosed with bronchitis. She was discharged home. However, blood cultures that were performed during that ER visit on 12/24/2016 shows Staphylococcus epidermidis in two blood culture bottles. She was called back on Friday to come in for admission for the gram-positive bacteremia. She was feeling bad with general malaise and productive cough. She was unable to move her hands and was dropping things. She was aware of the MS exacerbation. She was certain that she had iron infection and was disappointed when she was discharged from the emergency room. She was brought back because of the Staph epi bacteremia. She was placed on antibiotic therapy and is feeling better. She reports getting strength back in her arms. She is still tired. She expressed concern about her pheresis catheter in light of the bacteremia. Repeat blood cultures were performed today on 12/30/2016 through her Perma-Cath. Urine samples were positive for gram-negative isra. Sputum was positive for Pseudomonas. She has had no fevers. Vitals are stable. Hematology/Oncology is consulted for pheresis for MS exacerbation. PAST MEDICAL HISTORY 1. Chronic MS. 2. Systemic lupus. 3. Depression and anxiety. 4. Hypertension. 5. Fibromyalgia. 6. Gastroparesis. 7. Neurogenic bladder. 8. Osteoarthritis. 9. Bronchitis. 10. Gram-positive bacteremia/Staph epidermidis. PAST SURGICAL HISTORY 1. Perma-Cath placement for pheresis. 1. C-spine surgery. 2. Right fibular fracture. 3. Right ankle fracture. 4. Right lateral meniscus tear repair. 5. Laparoscopic cholecystectomy. 6. Partial hysterectomy/oophorectomy. 7. Suprapubic catheter placement. FAMILY HISTORY No significant family history of MS. 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 She denies any tobacco, alcohol or illicit drug use. ALLERGIES MULTIPLE MEDICATIONS. ADHESIVES. ALBUTEROL. CODEINE. DYNACIRC. LORTAB. PERCOCET. SOLU-MEDROL. CURRENT MEDICATIONS 1. Unfractionated heparin. 1. Gabapentin. 2. Aspirin. 3. Lasix. 4. Prinivil. 5. Procardia. 6. Protonix. 7. Potassium chloride. 8. Neurontin. 9. Plaquenil. 10. Mucinex. 11. Vancomycin. 12. Clonidine. 13. Atrovent. 14. Dilaudid. 15. Zofran p.r.n. PHYSICAL EXAMINATION VITAL SIGNS: Temperature 98.0, heart rate 80, respiratory rate 20, blood pressure 119/76, saturation 98%. GENERAL: Mrs. Han is a well-developed, well-nourished, tired-appearing woman sitting up in bed. She has no appetite. HEENT: Her pupils are round, reactive to light and accommodation. Sclerae nonicteric. Oropharynx is clear. NECK: Supple. RIGHT CHEST WALL: Perma-Cath is in place. Dressing is dry. LUNGS: Clear to auscultation. CARDIOVASCULAR: Exam reveals a normal rate and rhythm. ABDOMEN: Benign. LOWER EXTREMITIES: With no edema. She has got chronic dorsiflexion and spasms. LABORATORY DATA CBC significant for mild normocytic anemia. Platelet count and white blood cell count is normal. Potassium is decreased. Renal function is normal. BUN 8, creatinine 1.0. ASSESSMENT AND PLAN Mrs. Han is a 61-year-old woman with a long history of MS managed by Dr. Suggs. Her treatment is supplemented by weekly [facility]heres[facility]. She has had an acute exacerbation of MS due to a bacteremia. She is on antibiotic therapy. We have obtained cultures through her Perma-Cath to see if there is involvement of her Perma-Cath. Infectious disease is concerned about the involvement of the central line. She has improved in terms of her MS with treatment of the bacteremia. I recommend holding off on plasmapheresis until the bacteremia is clear to. We will need to discuss with Infectious Disease if we would be able to treat and clear her central line versus line removal. Mrs. Han is more in favor of removing the central line and is worried about her gram-positive cocci bacteremia. We will continue to monitor her progress. Blood cultures today were still pending. Her questions were answered to her satisfaction. MD CHIOMA Vasques/DONITA /7:22 PM /6:51 AM
[2016-12-31 07:11] LABS: BICARBONATE 24.2 MEQ/L (21.0-32.0); POTASSIUM 3.1 MEQ/L (3.5-5.1)
[2016-12-31] MEDS: METHENAMINE HIPPURATE 1 GM PO SCH ×2 (09:00→21:04)
[2016-12-31] MEDS: LISINOPRIL 20 MG TAB PO SCH (09:28)
[2016-12-31] MEDS: HYDROXYCHLOROQUINE SULFATE 200 MG TAB PO SCH ×2 (09:28→21:04)
[2016-12-31] MEDS: cloNIDine HCL 0.2 MG TAB PO SCH ×3 (09:28→18:00)
[2016-12-31] MEDS: POTASSIUM CHLORIDE 20 MEQ CONTROLLED RELEASE TAB PO SCH (09:28)
[2016-12-31] MEDS: ASPIRIN 325 MG TAB PO SCH (09:29)
[2016-12-31] MEDS: PANTOPRAZOLE SOD 20 MG DELAYED RELEASE TAB PO SCH (09:29)
[2016-12-31] MEDS: GABAPENTIN 300 MG CAP PO SCH ×3 (09:29→21:03)
[2016-12-31] MEDS: NIFEdipine 60 MG SUSTAINED RELEASE TAB PO SCH (09:30)
[2016-12-31] MEDS: guaiFENesin E.R. 600 MG TAB PO SCH ×2 (09:30→21:03)
[2016-12-31] MEDS: FUROSEMIDE 40 MG TAB PO SCH (09:31)
--- NOTE | 2016-12-31 10:38 | PD.ONC.PN ---
Subjective Subjective Remarks Afebrile Feels somewhat better since starting antibiotics. Objective Data Date Time Temp Pulse Resp B/P (MAP) Pulse Ox O2 Delivery O2 Flow Rate FiO2 12/31/16 09:29 99 12/31/16 08:00 96.5 67 20 127/76 (93) 99 12/31/16 04:00 96.3 67 18 108/62 (77) 96 12/31/16 00:00 96.3 69 20 99/57 (71) 99 12/30/16 20:00 96.5 59 20 128/57 (80) 98 12/30/16 19:43 96 21 12/30/16 16:00 98.0 80 20 119/76 (90) 98 12/30/16 12:00 97.6 78 20 121/77 (92) 96 12/31/16 12/31/16 12/31/16 06:59 14:59 22:59 Intake Total 870 ml Output Total 2150 ml Balance -1280 ml Result Diagram: 12/31/16 0600 12/31/16 0600 Laboratory Results Laboratory Tests Test 12/31/16 06:00 White Blood Count 6.8 TH/MM3 Red Blood Count 3.84 MIL/MM3 Hemoglobin 10.5 GM/DL Hematocrit 32.5 % Mean Corpuscular Volume 84.7 FL Mean Corpuscular Hemoglobin 27.3 PG Mean Corpuscular Hemoglobin Concent 32.2 % Red Cell Distribution Width 15.8 % Platelet Count 225 TH/MM3 Mean Platelet Volume 7.1 FL Neutrophils (%) (Auto) 56.9 % Lymphocytes (%) (Auto) 22.0 % Monocytes (%) (Auto) 10.3 % Eosinophils (%) (Auto) 10.0 % Basophils (%) (Auto) 0.8 % Neutrophils # (Auto) 3.9 TH/MM3 Lymphocytes # (Auto) 1.5 TH/MM3 Monocytes # (Auto) 0.7 TH/MM3 Eosinophils # (Auto) 0.7 TH/MM3 Basophils # (Auto) 0.1 TH/MM3 CBC Comment DIFF FINAL Differential Comment Blood Urea Nitrogen 9 MG/DL Creatinine 0.96 MG/DL Random Glucose 103 MG/DL Calcium Level 8.5 MG/DL Magnesium Level 2.0 MG/DL Sodium Level 143 MEQ/L Potassium Level 3.1 MEQ/L Chloride Level 111 MEQ/L Carbon Dioxide Level 24.2 MEQ/L Anion Gap 8 MEQ/L Estimat Glomerular Filtration Rate 72 ML/MIN Culture Results Microbiology Date/Time Source Procedure Growth Status 12/30/16 16:05 Blood Other Aerobic Blood Culture Pending Received 12/30/16 16:05 Blood Other Anaerobic Blood Culture Pending Received 12/30/16 16:00 Blood Other Aerobic Blood Culture Pending Received 12/30/16 16:00 Blood Other Anaerobic Blood Culture Pending Received 12/28/16 21:05 Blood Peripheral Aerobic Blood Culture - Preliminary Gram Positive Cocci Resulted 12/28/16 21:05 Anaerobic Blood Culture - Preliminary Gram Positive Cocci Resulted 12/28/16 21:00 Blood Peripheral Aerobic Blood Culture - Preliminary Staphylococcus Epidermidis Resulted 12/28/16 21:00 Blood Peripheral Anaerobic Blood Culture - Preliminary NO GROWTH IN 2 DAYS Resulted 12/29/16 09:10 Sputum Expectorated Sputum Gram Stain - Final Resulted 12/29/16 09:10 Sputum Culture - Preliminary Pseudomonas Aeruginosa Resulted 12/28/16 21:05 Urine Catheterized Urine Urine Culture - Final Pseudomonas Aeruginosa Enterococcus Faecalis Complete Administered Medications Medications (Trade) Dose Ordered Sig/Sury Route PRN Reason Start Time Stop Time Status Last Admin Dose Admin Piperacillin Sod/ Tazobactam Sod 50 ml @ 100 mls/hr Q6H IV 12/28/16 23:00 12/31/16 04:34 Ondansetron HCl (Zofran Inj) 4 mg Q6H PRN IV NAUSEA OR VOMITING 12/29/16 07:15 12/29/16 07:35 Vancomycin HCl 2000 mg/Sodium Chloride 520 ml @ 257.5 mls/ hr Q24H IV 12/29/16 20:00 12/30/16 20:13 Aspirin (Aspirin) 325 mg DAILY PO 12/30/16 09:00 12/31/16 09:29 Clonidine (Catapres) 0.2 mg TID PO 12/29/16 18:00 12/31/16 09:28 Furosemide (Lasix) 40 mg DAILY PO 12/30/16 09:00 12/31/16 09:31 Gabapentin (Neurontin) 300 mg DAILY@1300 PO 12/30/16 13:00 12/30/16 14:56 Gabapentin (Neurontin) 600 mg BID PO 12/29/16 21:00 12/31/16 09:29 Hydromorphone HCl (Dilaudid) 4 mg Q8H PRN PO PAIN over 4 12/29/16 14:15 12/30/16 19:10 Hydroxychloroquine Sulfate (Plaquenil) 200 mg BID PO 12/29/16 21:00 12/31/16 09:28 Lisinopril (Prinivil) 20 mg DAILY PO 12/30/16 09:00 12/31/16 09:28 Nifedipine (Procardia) 30 mg HS PO 12/29/16 21:00 12/30/16 20:11 Nifedipine (Procardia Xl) 60 mg DAILY PO 12/30/16 09:00 12/31/16 09:30 Pantoprazole Sodium (Protonix) 20 mg DAILY PO 12/30/16 09:00 12/31/16 09:29 Potassium Chloride (KCl) 20 meq DAILY PO 12/30/16 09:00 12/31/16 09:28 Patient Own Medication PT OWN MED: METHENAM... BID PO 12/29/16 21:00 Future hold 12/31/16 09:00 Ipratropium [place] (Atrovent Neb) 0.5 mg Q4HR NEB NEB 12/29/16 16:00 12/31/16 09:26 Guaifenesin (Mucinex Er) 600 mg BID PO 12/29/16 21:00 12/31/16 09:30 Heparin Sodium (Porcine) (Heparin Inj) 10,000 units UNSCH IV FLUSH 12/30/16 16:00 12/31/16 18:00 12/30/16 19:09 Objective Remarks GENERAL: Older female, sitting up in bed eating breakfast in no acute distress. SKIN: Warm and dry. HEAD: Normocephalic. EYES: No injection or drainage. NECK: Supple, trachea midline. CARDIOVASCULAR: Regular rate and rhythm without murmurs. RESPIRATORY: Breath sounds equal bilaterally. No accessory muscle use. GASTROINTESTINAL: Abdomen soft, non-tender, nondistended. EXTREMITIES: No cyanosis, or edema. MUSCULOSKELETAL: Adequate muscle tone. NEUROLOGICAL: Increased strength to her arms. Assessment/Plan Problem List: (1) Multiple sclerosis exacerbation ICD Codes: G35 - Multiple sclerosis Status: Chronic Plan: -- On Aubagio per neurology -- This is supplemented with plasma exchange on a weekly, outpatient basis. -- This is likely an acute exacerbation of MS d/t bacteremia. -- Hold off on plasma exchange until bacteremia is cleared. (2) Sepsis ICD Codes: A41.9 - Sepsis, unspecified organism Plan: -- She was seen in the ER on 12/24/16 and was diagnosed with bronchitis -- Blood cultures were found to be positive and the pt was called back for IV Abx -- Blood cultures were taken from Permacath on 12/31 and were found to be growing gram + cocci in pairs/clusters. [age] y/o female admitted for IV antibiotics after her blood cultures grew out from previous ER visit. Plan 1. Continue Abx per ID 2. Will need to remove Permacath for now; micro is positive for gram + cocci in pairs/clusters. 3. Once bacteremia is cleared we can discuss replacing Permacath for future pheresis. 4. No pheresis for now; she is getting better every day with the antibiotics and it is likely that she was having an exacerbation of her MS due to the infection. Attending Statement The exam, history, and the medical decision-making described in the above note were completed with the assistance of the mid-level provider. I reviewed and agree with the findings presented. I attest that I had a [id number] encounter with the patient on the same day, and personally performed and documented my assessment and findings in the medical record. Pt seen and examined. Pheresis catheter removed, both set of blood cultures from the was positive. Pt anxious about clearing bacteremia. Discussed holding pheresis, so far stable from MS standpoint. Will follow. Yun Quiles Dec 31, 2016 10:38 Beatriz Trevino MD Dec 31, 2016 19:08
--- NOTE | 2016-12-31 11:23 | HHI.IDPN ---
Subjective Subjective Remarks Patient is a 61 year old female, with known MS, admitted to the hospital after her BC came back (+) and he sputum C/S with MRSA and PSAE. Patient states that she has been sick since the early part of December. She had generalized malaise, and was having some productive cough. It was initially white in color and then it became yellow. She also has had some diarrhea in the beginning which has resolved, as well as vomiting. She continues to have vomiting at least 3 times a day but since she's been taking Zofran that has improved. She's had intermittent fevers the highest has been about 101. Patient gets plasmapheresis every Friday, and she missed a treatment about 2 weeks ago. She went for her treatment on December 24, and at that time she had mentioned that she was having some coughing. She was instructed to go the emergency room , and in the ER she was afebrile. And her chest x-ray did not show any consolidation. 2 blood cultures were done at that time as well as the sputum. Prior to that visit patient has been taking Levaquin as prescribed by her primary care physician. Patient stated that she was given some cough medication and was discharge. Her blood cultures are now reported as growing staph epidermides, and her sputum with MRSA and Pseudomonas. Patient was called back in to the hospital and admitted. Since admission she has not had any fever. She is still coughing up some yellowish phlegm. She gets some dyspnea on exertion. She has occasional pain on her chest when she has a lot of coughing episodes. Her chest x-ray now is showing some basilar infiltrates. Notes reviewed D/W RN Afebrile Cough is better Has more (+) BC with GPC IR consulted to remove permacath Antibiotics Zosyn vancomycin Lines PIV Permacath Past Medical History Multiple sclerosis diagnosed in late 2012 requiring plasmapheresis weekly Fibromyalgia Bipolar disorder History of obesity Hypertension Lupus Fibromyalgia Gastroparesis Recurrent UTIs Past Surgical History chronic indwelling suprapubic cath. changed monthly 2004 the patient had C3 through C6 anterior cervical discectomy and arthrodesis for severe cervical stenosis and myelopathy 2008 the patient had again the same diagnosis but had C6-C7 anterior cervical discectomy and arthrodesis 2010 the patient had open reduction, internal fixation of a right ankle fracture Right distal fibula fracture Torn lateral meniscus last year and underwent arthroscopic surgery Laparoscopic cholecystectomy Hysterectomy Suprapubic catheter placement PermCath placement Allergies: Coded Allergies: acetaminophen (Unverified Allergy, Severe, ITCHING, 12/28/16) adhesive (Unverified Allergy, Severe, Rash, 12/28/16) albuterol (Unverified Allergy, Severe, SORES, 12/28/16) codeine (Unverified Allergy, Severe, SWELLING AND DIFFICULTY BREATHING, ) hydrocodone (Unverified Allergy, Severe, RASH AND SWELLING, 12/28/16) isradipine (Unverified Allergy, Severe, ELEVATED HEART RATE, 12/28/16) methylprednisolone (Unverified Allergy, Severe, Shortness of Breath, ) oxycodone (Unverified Allergy, Severe, ITCHING, 12/28/16) Objective . Vital Signs Date Time Temp Pulse Resp B/P (MAP) Pulse Ox O2 Delivery O2 Flow Rate FiO2 12/31/16 09:29 99 12/31/16 08:00 96.5 67 20 127/76 (93) 99 12/31/16 04:00 96.3 67 18 108/62 (77) 96 12/31/16 00:00 96.3 69 20 99/57 (71) 99 12/30/16 20:00 96.5 59 20 128/57 (80) 98 12/30/16 19:43 96 21 12/30/16 16:00 98.0 80 20 119/76 (90) 98 12/30/16 12:00 97.6 78 20 121/77 (92) 96 . Laboratory Tests Test 12/29/16 20:46 12/31/16 06:00 White Blood Count 6.9 TH/MM3 6.8 TH/MM3 Red Blood Count 3.62 MIL/MM3 3.84 MIL/MM3 Hemoglobin 9.8 GM/DL 10.5 GM/DL Hematocrit 30.5 % 32.5 % Mean Corpuscular Volume 84.1 FL 84.7 FL Mean Corpuscular Hemoglobin 27.1 PG 27.3 PG Mean Corpuscular Hemoglobin Concent 32.2 % 32.2 % Red Cell Distribution Width 15.8 % 15.8 % Platelet Count 223 TH/MM3 225 TH/MM3 Mean Platelet Volume 6.9 FL 7.1 FL Neutrophils (%) (Auto) 59.2 % 56.9 % Lymphocytes (%) (Auto) 21.1 % 22.0 % Monocytes (%) (Auto) 12.3 % 10.3 % Eosinophils (%) (Auto) 6.5 % 10.0 % Basophils (%) (Auto) 0.9 % 0.8 % Neutrophils # (Auto) 4.1 TH/MM3 3.9 TH/MM3 Lymphocytes # (Auto) 1.5 TH/MM3 1.5 TH/MM3 Monocytes # (Auto) 0.9 TH/MM3 0.7 TH/MM3 Eosinophils # (Auto) 0.4 TH/MM3 0.7 TH/MM3 Basophils # (Auto) 0.1 TH/MM3 0.1 TH/MM3 CBC Comment DIFF FINAL DIFF FINAL Differential Comment Laboratory Tests Test 12/29/16 20:46 12/30/16 05:09 12/31/16 06:00 Blood Urea Nitrogen 12 MG/DL 8 MG/DL 9 MG/DL Creatinine 1.15 MG/DL 1.00 MG/DL 0.96 MG/DL Random Glucose 103 MG/DL 102 MG/DL 103 MG/DL Calcium Level 8.8 MG/DL 8.7 MG/DL 8.5 MG/DL Sodium Level 143 MEQ/L 146 MEQ/L 143 MEQ/L Potassium Level 3.4 MEQ/L 3.2 MEQ/L 3.1 MEQ/L Chloride Level 110 MEQ/L 111 MEQ/L 111 MEQ/L Carbon Dioxide Level 27.2 MEQ/L 25.7 MEQ/L 24.2 MEQ/L Anion Gap 6 MEQ/L 9 MEQ/L 8 MEQ/L Estimat Glomerular Filtration Rate 58 ML/MIN 68 ML/MIN 72 ML/MIN Magnesium Level 2.0 MG/DL Microbiology Date/Time Source Procedure Growth Status 12/30/16 16:05 Blood Other Aerobic Blood Culture - Preliminary Gram Positive Cocci Resulted 12/30/16 16:05 Blood Other Anaerobic Blood Culture - Preliminary NO GROWTH IN 1 DAY Resulted 12/30/16 16:00 Blood Other Aerobic Blood Culture - Preliminary Gram Positive Cocci Resulted 12/30/16 16:00 Blood Other Anaerobic Blood Culture - Preliminary NO GROWTH IN 1 DAY Resulted 12/28/16 21:05 Blood Peripheral Aerobic Blood Culture - Preliminary Gram Positive Cocci Resulted 12/28/16 21:05 Anaerobic Blood Culture - Preliminary Gram Positive Cocci Resulted 12/28/16 21:00 Blood Peripheral Aerobic Blood Culture - Preliminary Staphylococcus Epidermidis Resulted 12/28/16 21:00 Blood Peripheral Anaerobic Blood Culture - Preliminary NO GROWTH IN 3 DAYS Resulted 12/29/16 09:10 Sputum Expectorated Sputum Gram Stain - Final Resulted 12/29/16 09:10 Sputum Culture - Preliminary Pseudomonas Aeruginosa Resulted 12/28/16 21:05 Urine Catheterized Urine Urine Culture - Final Pseudomonas Aeruginosa Enterococcus Faecalis Complete Imaging Last Impressions Chest X-Ray 12/28/162045 Signed Impressions: Service Date/Time: Wednesday, December 28, 2016 21:00 - CONCLUSION: 1. Right basilar streakiness consistent with atelectasis and/or mild infiltrate. Clinical correlation is recommended. Manuel Adam MD Physical Exam GENERAL: awake and alert, not in respiratory distress. SKIN: Warm and dry. No generalized rash, no ecchymoses and no evidence of embolic lesions. HEAD: Atraumatic. Normocephalic. No temporal wasting, or tenderness. EYES: [place] conjunctiva. No petechia or hemorrhage. Pupils equal, round and reactive to light. Extraocular movements full and intact. No scleral icterus. No injection or drainage. EARS, NOSE AND THROAT: Nose without bleeding or purulent nasal discharge. Mucous membranes pink and moist. No oral lesions noted. NECK: Trachea midline. Supple and not tender, no meningeal signs. Permacath tunnelled to her RIJ, and has no evidence of infection. CARDIOVASCULAR: Regular rate and rhythm. No murmurs, rubs or gallops heard RESPIRATORY: Clear to auscultation. Breath sounds equal bilaterally. No rales , wheezing or rhonchi. Decreased BS at the bases. Scar on her L chest from previous permacath, no tenderness or redness ABDOMEN: Soft, non-tender, nondistended. Bowel sounds present and normoactive. No guarding. No rebound. No organomegaly. : SPC in place, site ok, urine looks ok EXTREMITIES: No clubbing, cyanosis, or edema. No joint effusion. No calf tenderness. Well perfused and warm. NEUROLOGICAL: Awake and alert. Cranial nerves grossly intact. weakness in her BLE. PSYCHIATRIC: Normal affect, calm and cooperative. LINE: No evidence of infection in her RIJ permacath. PIV ok. Assessment & Plan Remarks IMPRESSION PNA, patient with known MS, C/S with MRSA and PSAE - latest sputum with PSAE UTI, has SPC, C/S with PSAE and Enterococcus (+) BC with Staph epi, due to CABSI, has permacath Multiple sclerosis - on plasmapheresis Known Lupus RECOMMENDATION Follow cultures and adjust Abx Continue Vancomycin Continue Zosyn Agree with permacath removal and send tip for C/S If able to, delay placement of new permacath until infection cleared Get echo Monitor progress Explained plan to patient D/W Mili Contreras MD Dec 31, 2016 11:23
[2016-12-31] MEDS ORDERED: LIDOCAINE 2%/EPINEPHrine 1:100,000 20ML MDV ONE (13:44)
--- NOTE | 2016-12-31 14:02 | HHI.PR ---
Subjective Remarks No new complaints. Objective Vitals Vital Signs Date Time Temp Pulse Resp B/P (MAP) Pulse Ox O2 Delivery O2 Flow Rate FiO2 12/31/16 12:00 96.9 81 20 117/57 (77) 99 12/31/16 09:29 99 12/31/16 08:00 96.5 67 20 127/76 (93) 99 12/31/16 04:00 96.3 67 18 108/62 (77) 96 12/31/16 00:00 96.3 69 20 99/57 (71) 99 12/30/16 20:00 96.5 59 20 128/57 (80) 98 12/30/16 19:43 96 21 12/30/16 16:00 98.0 80 20 119/76 (90) 98 Result Diagram: 12/31/16 0600 12/31/16 0600 Imaging Last Impressions Chest X-Ray 12/28/162045 Signed Impressions: Service Date/Time: Friday, December 28, 2016 21:00 - CONCLUSION: 1. Right basilar streakiness consistent with atelectasis and/or mild infiltrate. Clinical correlation is recommended. Manuel Adam MD Objective Remarks General: NAD, AAOx3 Chest: Coarse breath sounds bilaterally, improving Cardiac: Regular Abd: +BS, soft ND/NT, SPC in place Ext: No edema A/P Problem List: (1) Bronchopneumonia ICD Codes: J18.0 - Bronchopneumonia, unspecified organism Plan: - cmgmt with ID - Pt is 61 yo woman with advance multiple sclerosis. She has been receiving weekly plasmapheresis on Friday - She presented to the ED with complaints of productive cough that began around 2 - 3 weeks ago. Received around 11 days Levaquin initially but no improvement. - Pt was seen in ED and had sputum and blood cx on 12/24 and was diagnosed with bronchitis then discharged. - Pt was called back to ED 12/28 for positive sputum MRSA/pseudomonas and blood cx staph epi 2/ - Pt says her hands were also getting weak and MS starting to flare. She has also missed her last 2 treatments. - SPC was last changed around 12/19 per the pt. It is changed monthly per the pt. - blood Cx (12/30/16) - staph sp coag neg from anaerobic & aerobic bottles - on aerobic bottle growing staph epi - urine cx (12/28) --> pseudomonas, enterococcus - sputum cx (12/29) --> pseudomonas - blood cx (12/30) from permcath - 2 aerobic bottles --> gram positive cocci - PermCath removed (12/31/16) d/t infection - hold off on placing new PermCath until bacteremia resolved - so no plasmapheresis at this time - In the ED pt was given Primaxin as best ALEJANDRINA. - Vanco (12/29 - 12/31) - Zosyn and (12/29 - 12/31) - Cont scheduled duonebs - PT (2) Multiple sclerosis ICD Codes: G35 - Multiple sclerosis Status: Chronic Plan: - Pt has missed her last two plasmapheresis sessions prior to admission - Pt reports weakness in the UE - see above (3) Chronic indwelling Mendoza catheter ICD Codes: Z92.89 - Personal history of other medical treatment Status: Chronic Plan: - SPC last changed on 12/19 (4) Essential hypertension ICD Codes: I10 - Essential (primary) hypertension Status: Chronic (5) Fibromyalgia ICD Codes: M79.7 - Fibromyalgia Status: Chronic (6) Lupus (systemic lupus erythematosus) ICD Codes: M32.9 - Systemic lupus erythematosus, unspecified Status: Jan Aguirre DO Dec 31, 2016 14:01
[2016-12-31] MEDS: VANCOMYCIN INJ 2,000 MG in SODIUM CHLORID 0.9% 500 ML INJ 500 ML IV SCH (18:36)
[2016-12-31] MEDS: HYDROmorphone HCL 4 MG TAB PO PRN (18:44)
[2016-12-31] MEDS: NIFEdipine 10 MG CAP PO SCH (21:04)
[2016-12-31] MEDS: ONDANSETRON HCL 4 MG/2 ML VIAL IV PRN (21:18)
[2017-01-01] VITALS (7 sets, daily range): BP systolic 104–138; BP diastolic 6–83; PULSE 67–96; RESP 16–20; TEMP 97.3–99.1; O2SAT 96–99
[2017-01-01] MEDS: RESP: IPRATROPIUM 0.5 MG/2.5 ML NEB NEB SCH ×6 (02:10→20:24)
[2017-01-01] MEDS: PIPERACIL-TAZO 3.375 GM PREMIX 50 ML IV SCH ×3 (05:29→19:43)
[2017-01-01] MEDS: METHENAMINE HIPPURATE 1 GM PO SCH ×2 (09:00→21:21)
--- NOTE | 2017-01-01 09:05 | HHI.PR ---
Subjective Remarks still with chest congestion. not feeling as well today. Objective Vitals heart reg lung course/rhonce abd s/nt. 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 Right basilar streakiness consistent with atelectasis and/or mild infiltrate. Clinical correlation is recommended. Manuel Adam MD A/P Problem List: (1) Bronchopneumonia ICD Codes: J18.0 - Bronchopneumonia, unspecified organism Plan: - cmgmt with ID - Pt is 61 yo woman with advance multiple sclerosis. She has been receiving weekly plasmapheresis on Friday - She presented to the ED with complaints of productive cough that began around 2 - 3 weeks ago. Received around 11 days Levaquin initially but no improvement. - Pt was seen in ED and had sputum and blood cx on 12/24 and was diagnosed with bronchitis then discharged. - Pt was called back to ED 12/28 for positive sputum MRSA/pseudomonas and blood cx staph epi 2/4 - Pt says her hands were also getting weak and MS starting to flare. She has also missed her last 2 treatments. - SPC was last changed around 12/19 per the pt. It is changed monthly per the pt. - blood Cx (12/30/16) - staph sp coag neg from anaerobic & aerobic bottles - on aerobic bottle growing staph epi - urine cx (12/28) --> pseudomonas, enterococcus - sputum cx (12/29) --> pseudomonas - blood cx (12/30) from permcath - 2 aerobic bottles --> gram positive cocci - PermCath removed (12/31/16) d/t infection. tip cx pending - hold off on placing new PermCath until bacteremia resolved - so no plasmapheresis at this time - In the ED pt was given Primaxin as best ALEJANDRINA. - Vanco (12/29 - 12/31) - Zosyn and (12/29 - 12/31) - Cont scheduled duonebs. add mucomyst - PT . add OT - Will plan for survellience blood cx soon - echo ordered to eval for endocarditis. (2) Multiple sclerosis ICD Codes: G35 - Multiple sclerosis Status: Chronic Plan: - Pt has missed her last two plasmapheresis sessions prior to admission - Pt reports weakness in the UE - see above (3) Chronic indwelling Mendoza catheter ICD Codes: Z92.89 - Personal history of other medical treatment Status: Chronic Plan: - SPC last changed on 12/19 (4) Essential hypertension ICD Codes: I10 - Essential (primary) hypertension Status: Chronic (5) Fibromyalgia ICD Codes: M79.7 - Fibromyalgia Status: Chronic (6) Lupus (systemic lupus erythematosus) ICD Codes: M32.9 - Systemic lupus erythematosus, unspecified Status: Chronic Alex Morales MD Jan 01, 2017 09:05
[2017-01-01] MEDS ORDERED: POTASSIUM CHLORIDE 20 MEQ CONTROLLED RELEASE TAB PO ONE (09:15)
[2017-01-01] MEDS: HYDROXYCHLOROQUINE SULFATE 200 MG TAB PO SCH ×2 (10:04→21:20)
[2017-01-01] MEDS: GABAPENTIN 300 MG CAP PO SCH ×3 (10:04→21:20)
[2017-01-01] MEDS: cloNIDine HCL 0.2 MG TAB PO SCH ×3 (10:04→19:42)
[2017-01-01] MEDS: FUROSEMIDE 40 MG TAB PO SCH (10:06)
[2017-01-01] MEDS: PANTOPRAZOLE SOD 20 MG DELAYED RELEASE TAB PO SCH (10:06)
[2017-01-01] MEDS: NIFEdipine 60 MG SUSTAINED RELEASE TAB PO SCH (10:06)
[2017-01-01] MEDS: LISINOPRIL 20 MG TAB PO SCH (10:07)
[2017-01-01] MEDS: guaiFENesin E.R. 600 MG TAB PO SCH ×2 (10:07→21:20)
[2017-01-01] MEDS: ASPIRIN 325 MG TAB PO SCH (10:07)
--- NOTE | 2017-01-01 11:38 | RADRPT ---
EXAM DATE/TIME: 12/31/2016 00:00 [facility] COMPARISON: No previous studies available for comparison. INDICATIONS : Patient with history of multiple sclerosis in need of permcath removal for possible infection. MEDICAL HISTORY : Multiple sclerosis diagnosed in late 2012 requiring plasmapheresis periodically. Most recent plasmapheresis was March 2016. Fibromyalgia Bipolar disorder History of obesity Hypertension Lupus Fibromyalgia Gastroparesis Recurrent UTIs SURGICAL HISTORY : 2004 the patient had C3 through C6 anterior cervical discectomy and arthrodesis for severe cervical stenosis and myelopathy 2008 the patient had again the same diagnosis but had C6-C7 anterior cervical discectomy and arthrodesis 2010 the patient had open reduction, internal fixation of a right ankle fracture Right distal fibula fracture Torn lateral meniscus last year and underwent arthroscopic surgery Laparoscopic cholecystectomy Hysterectomy Suprapubic catheter placement PermCath ENCOUNTER: Subsequent ACUITY: > 1 year PAIN SCORE: 0/10 IMAGE SERIES: TECH NOTE: Tip of Permcath was sent to lab for culture and sensitivity.MIKHAIL MARTINEZ MR#:[id number] Exam Dt/Desc: December 31, 2016CENTRAL VENOUS CATHETER REMOVAL, TUNNELED RIGHT PROCEDURE : 1. PermaCath removal. The risks, benefits and alternatives to the procedure were explained and verbal and written consent w as obtained. The site was prepped in sterile fashion. Full sterile technique was used, including ca p, mask, sterile gloves and gown and a large sterile sheet. Hand hygiene and 2% chlorhexidine and/or betadine/alcohol prep was utilized per protocol for cutaneous antisepsis. The skin and subcutaneous tissues were infiltrated with local anesthetic solution. The tract was anesthetized with 1% Lidocaine using. The Permcath was dissected from the subcutaneous tissues and easily removed in one piece. Manual pressure was applied to the venotomy site until hem ostasis was obtained. Sterile dressing was applied. The patient tolerated the procedure well and there were no complications. CONCLUSION: Uncomplicated Permcath removal. Marky Cid MD on January 01, 2017 at 11:35 Board Certified Radiologist. This report was verified electronically.
[2017-01-01] MEDS: RESP: ACETYLCYSTEINE 20% 30 ML NEB NEB SCH ×3 (11:55→20:24)
--- NOTE | 2017-01-01 13:22 | HHI.IDPN ---
Subjective Subjective Remarks Patient is a 61 year old female, with known MS, admitted to the hospital after her BC came back (+) and he sputum C/S with MRSA and PSAE. Patient states that she has been sick since the early part of December. She had generalized malaise, and was having some productive cough. It was initially white in color and then it became yellow. She also has had some diarrhea in the beginning which has resolved, as well as vomiting. She continues to have vomiting at least 3 times a day but since she's been taking Zofran that has improved. She's had intermittent fevers the highest has been about 101. Patient gets plasmapheresis every Friday, and she missed a treatment about 2 weeks ago. She went for her treatment on December 24, and at that time she had mentioned that she was having some coughing. She was instructed to go the emergency room , and in the ER she was afebrile. And her chest x-ray did not show any consolidation. 2 blood cultures were done at that time as well as the sputum. Prior to that visit patient has been taking Levaquin as prescribed by her primary care physician. Patient stated that she was given some cough medication and was discharge. Her blood cultures are now reported as growing staph epidermides, and her sputum with MRSA and Pseudomonas. Patient was called back in to the hospital and admitted. Since admission she has not had any fever. She is still coughing up some yellowish phlegm. She gets some dyspnea on exertion. She has occasional pain on her chest when she has a lot of coughing episodes. Her chest x-ray now is showing some basilar infiltrates. Notes reviewed Afebrile Cough feels worse today feels tired permacath removed BC 12/30 (_) [facility] Had Staph epi on first 2 BC UC with PSAE and Enterococcus Sputum PSAE Sputum from 12/24 PSAE and MRSA WBC normal Antibiotics Zosyn vancomycin Lines PIV Permacath - removed Past Medical History Multiple sclerosis diagnosed in late 2012 requiring plasmapheresis weekly Fibromyalgia Bipolar disorder History of obesity Hypertension Lupus Fibromyalgia Gastroparesis Recurrent UTIs Past Surgical History chronic indwelling suprapubic cath. changed monthly 2004 the patient had C3 through C6 anterior cervical discectomy and arthrodesis for severe cervical stenosis and myelopathy 2008 the patient had again the same diagnosis but had C6-C7 anterior cervical discectomy and arthrodesis 2010 the patient had open reduction, internal fixation of a right ankle fracture Right distal fibula fracture Torn lateral meniscus last year and underwent arthroscopic surgery Laparoscopic cholecystectomy Hysterectomy Suprapubic catheter placement PermCath placement Allergies: Coded Allergies: acetaminophen (Unverified Allergy, Severe, ITCHING, 12/28/16) adhesive (Unverified Allergy, Severe, Rash, 12/28/16) albuterol (Unverified Allergy, Severe, SORES, 12/28/16) codeine (Unverified Allergy, Severe, SWELLING AND DIFFICULTY BREATHING, ) hydrocodone (Unverified Allergy, Severe, RASH AND SWELLING, 12/28/16) isradipine (Unverified Allergy, Severe, ELEVATED HEART RATE, 12/28/16) methylprednisolone (Unverified Allergy, Severe, Shortness of Breath, ) oxycodone (Unverified Allergy, Severe, ITCHING, 12/28/16) Objective . Vital Signs Date Time Temp Pulse Resp B/P (MAP) Pulse Ox O2 Delivery O2 Flow Rate FiO2 01/01/17 12:00 99.1 89 17 130/79 (96) 97 01/01/17 08:51 98 01/01/17 08:00 98.5 96 17 138/75 (96) 97 01/01/17 00:00 97.9 77 20 128/6 (46) 96 12/31/16 20:39 97 12/31/16 20:00 98.1 82 22 111/67 (82) 98 12/31/16 16:00 96.9 62 19 110/58 (75) 95 . Laboratory Tests Test 12/31/16 06:00 White Blood Count 6.8 TH/MM3 Red Blood Count 3.84 MIL/MM3 Hemoglobin 10.5 GM/DL Hematocrit 32.5 % Mean Corpuscular Volume 84.7 FL Mean Corpuscular Hemoglobin 27.3 PG Mean Corpuscular Hemoglobin Concent 32.2 % Red Cell Distribution Width 15.8 % Platelet Count 225 TH/MM3 Mean Platelet Volume 7.1 FL Neutrophils (%) (Auto) 56.9 % Lymphocytes (%) (Auto) 22.0 % Monocytes (%) (Auto) 10.3 % Eosinophils (%) (Auto) 10.0 % Basophils (%) (Auto) 0.8 % Neutrophils # (Auto) 3.9 TH/MM3 Lymphocytes # (Auto) 1.5 TH/MM3 Monocytes # (Auto) 0.7 TH/MM3 Eosinophils # (Auto) 0.7 TH/MM3 Basophils # (Auto) 0.1 TH/MM3 CBC Comment DIFF FINAL Differential Comment Laboratory Tests Test 12/31/16 06:00 Blood Urea Nitrogen 9 MG/DL Creatinine 0.96 MG/DL Random Glucose 103 MG/DL Calcium Level 8.5 MG/DL Magnesium Level 2.0 MG/DL Sodium Level 143 MEQ/L Potassium Level 3.1 MEQ/L Chloride Level 111 MEQ/L Carbon Dioxide Level 24.2 MEQ/L Anion Gap 8 MEQ/L Estimat Glomerular Filtration Rate 72 ML/MIN Microbiology Date/Time Source Procedure Growth Status 12/30/16 16:05 Blood Other Aerobic Blood Culture - Preliminary Gram Positive Cocci Resulted 12/30/16 16:05 Blood Other Anaerobic Blood Culture - Preliminary NO GROWTH IN 2 DAYS Resulted 12/30/16 16:00 Blood Other Aerobic Blood Culture - Preliminary Gram Positive Cocci Resulted 12/30/16 16:00 Blood Other Anaerobic Blood Culture - Preliminary NO GROWTH IN 2 DAYS Resulted 12/31/16 14:03 Catheter Tip Vas Cath Wound Culture Pending Received Imaging Last Impressions Chest X-Ray 12/28/162045 Signed Impressions: Service Date/Time: Wednesday, December 28, 2016 21:00 - CONCLUSION: 1. Right basilar streakiness consistent with atelectasis and/or mild infiltrate. Clinical correlation is recommended. Manuel Adam MD Physical Exam GENERAL: awake and alert, not in respiratory distress. SKIN: Warm and dry. No generalized rash, no ecchymoses and no evidence of embolic lesions. HEAD: Atraumatic. Normocephalic. No temporal wasting, or tenderness. EYES: [place] conjunctiva. No petechia or hemorrhage. Pupils equal, round and reactive to light. Extraocular movements full and intact. No scleral icterus. No injection or drainage. EARS, NOSE AND THROAT: Nose without bleeding or purulent nasal discharge. Mucous membranes pink and moist. No oral lesions noted. NECK: Trachea midline. Supple and not tender, no meningeal signs.dry dressing over previous permacath site CARDIOVASCULAR: Regular rate and rhythm. No murmurs, rubs or gallops heard RESPIRATORY: Clear to auscultation. Breath sounds equal bilaterally. No rales , wheezing or rhonchi. Decreased BS at the bases. Scar on her L chest from previous permacath, no tenderness or redness ABDOMEN: Soft, non-tender, nondistended. Bowel sounds present and normoactive. No guarding. No rebound. No organomegaly. : SPC in place, site ok, urine looks ok EXTREMITIES: No clubbing, cyanosis, or edema. No joint effusion. No calf tenderness. Well perfused and warm. NEUROLOGICAL: Awake and alert. Cranial nerves grossly intact. weakness in her BLE. PSYCHIATRIC: Normal affect, calm and cooperative. LINE: PIV ok. Assessment & Plan Remarks IMPRESSION PNA, patient with known MS, C/S with MRSA and PSAE - latest sputum with PSAE UTI, has SPC, C/S with PSAE and Enterococcus (+) BC with Staph epi, due to CABSI, has permacath Multiple sclerosis - on plasmapheresis Known Lupus RECOMMENDATION Repeat BC Await echo Repeat UA and C/S Continue Vancomycin Continue Zosyn If able to, delay placement of new permacath until infection cleared Monitor progress Follow new C/S Mili Wynn MD Jan 01, 2017 13:22
[2017-01-01] MEDS: VANCOMYCIN INJ 2,000 MG in SODIUM CHLORID 0.9% 500 ML INJ 500 ML IV SCH (13:51)
--- NOTE | 2017-01-01 15:47 | PD.ONC.PN ---
Subjective Subjective Remarks Afebrile "If I have to be on IV antibiotics for a long time I would rather be on them in the hospital" Still feeling stronger in upper extremities Echo ordered to r/o endocarditis. Objective Data Date Time Temp Pulse Resp B/P (MAP) Pulse Ox O2 Delivery O2 Flow Rate FiO2 01/01/17 12:00 99.1 89 17 130/79 (96) 97 01/01/17 08:51 98 01/01/17 08:00 98.5 96 17 138/75 (96) 97 01/01/17 00:00 97.9 77 20 128/6 (46) 96 12/31/16 20:39 97 12/31/16 20:00 98.1 82 22 111/67 (82) 98 12/31/16 16:00 96.9 62 19 110/58 (75) 95 01/01/17 01/01/17 01/01/17 06:59 14:59 22:59 Intake Total 240 ml Output Total 1750 ml Balance -1510 ml Result Diagram: 12/31/16 0600 12/31/16 0600 Culture Results Microbiology Date/Time Source Procedure Growth Status 12/30/16 16:05 Blood Other Aerobic Blood Culture - Preliminary Staph Sp Coagulase Negative Resulted 12/30/16 16:05 Blood Other Anaerobic Blood Culture - Preliminary NO GROWTH IN 2 DAYS Resulted 12/30/16 16:00 Blood Other Aerobic Blood Culture - Preliminary Staph Sp Coagulase Negative Resulted 12/30/16 16:00 Blood Other Anaerobic Blood Culture - Preliminary NO GROWTH IN 2 DAYS Resulted 12/31/16 14:03 Catheter Tip Vas Cath Wound Culture Pending Received Administered Medications Medications (Trade) Dose Ordered Sig/Sury Route PRN Reason Start Time Stop Time Status Last Admin Dose Admin Piperacillin Sod/ Tazobactam Sod 50 ml @ 100 mls/hr Q6H IV 12/28/16 23:00 01/01/17 13:54 Ondansetron HCl (Zofran Inj) 4 mg Q6H PRN IV NAUSEA OR VOMITING 12/29/16 07:15 12/31/16 21:18 Aspirin (Aspirin) 325 mg DAILY PO 12/30/16 09:00 01/01/17 10:07 Clonidine (Catapres) 0.2 mg TID PO 12/29/16 18:00 01/01/17 13:51 Furosemide (Lasix) 40 mg DAILY PO 12/30/16 09:00 01/01/17 10:06 Gabapentin (Neurontin) 300 mg DAILY@1300 PO 12/30/16 13:00 01/01/17 13:51 Gabapentin (Neurontin) 600 mg BID PO 12/29/16 21:00 01/01/17 10:04 Hydromorphone HCl (Dilaudid) 4 mg Q8H PRN PO PAIN over 4 12/29/16 14:15 12/31/16 18:44 Hydroxychloroquine Sulfate (Plaquenil) 200 mg BID PO 12/29/16 21:00 01/01/17 10:04 Lisinopril (Prinivil) 20 mg DAILY PO 12/30/16 09:00 01/01/17 10:07 Nifedipine (Procardia) 30 mg HS PO 12/29/16 21:00 12/31/16 21:04 Nifedipine (Procardia Xl) 60 mg DAILY PO 12/30/16 09:00 01/01/17 10:06 Pantoprazole Sodium (Protonix) 20 mg DAILY PO 12/30/16 09:00 01/01/17 10:06 Patient Own Medication PT OWN MED: [place]... BID PO 12/29/16 21:00 Future hold 01/01/17 09:00 Ipratropium [place] (Atrovent Neb) 0.5 mg Q4HR NEB NEB 12/29/16 16:00 01/01/17 12:04 Guaifenesin (Mucinex Er) 600 mg BID PO 12/29/16 21:00 01/01/17 10:07 Vancomycin HCl 2000 mg/Sodium Chloride 520 ml @ 257.5 mls/ hr Q18H IV 12/31/16 18:00 01/01/17 13:51 Objective Remarks GENERAL: Older female, asleep in bed on approach in no acute distress. SKIN: Warm and dry. HEAD: Normocephalic. EYES: No injection or drainage. NECK: Supple, trachea midline. CARDIOVASCULAR: Regular rate and rhythm without murmurs. RESPIRATORY: Breath sounds equal bilaterally. No accessory muscle use. GASTROINTESTINAL: Abdomen soft, non-tender, nondistended. EXTREMITIES: No cyanosis, or edema. MUSCULOSKELETAL: Adequate muscle tone. NEUROLOGICAL: Increased strength to her arms. Assessment/Plan Problem List: (1) Multiple sclerosis exacerbation ICD Codes: G35 - Multiple sclerosis Status: Chronic Plan: -- On Aubagio per neurology -- This is supplemented with plasma exchange on a weekly, outpatient basis. -- This is likely an acute exacerbation of MS d/t bacteremia. -- Hold off on plasma exchange until bacteremia is cleared. (2) Sepsis ICD Codes: A41.9 - Sepsis, unspecified organism Plan: -- She was seen in the ER on 12/24/16 and was diagnosed with bronchitis -- Blood cultures were found to be positive and the pt was called back for IV Abx -- Blood cultures were taken from [facility] on 12/31 and were found to be growing gram + cocci in pairs/clusters. Assessment y/o female admitted for IV antibiotics after her blood cultures grew out from previous ER visit. Plan 1. Permacath removed 2. Attending has ordered echo to r/o endocarditis. 3. Reports that she continues to feel stronger. 4. Continue IV Abx per ID. She will need a prolonged course of IV antibiotics given the septicemia. Attending Statement The exam, history, and the medical decision-making described in the above note were completed with the assistance of the mid-level provider. I reviewed and agree with the findings presented. I attest that I had a [id number] encounter with the patient on the same day, and personally performed and documented my assessment and findings in the medical record. Fearful of having sepsis. Discussed BC from permacath pending ID. Cont abx. HOld pheresis. Rebif last dose 1 week ago. Yun Quiles Jan 01, 2017 15:47 Beatriz Trevino MD Jan 01, 2017 20:37
--- NOTE | 2017-01-01 17:41 | ECHRPT ---
Indication: SEPSIS- ENDOCARDITIS CONCLUSIONS The left ventricular systolic function is normal with an estimated ejection fraction in the range of 55-60%. Mild concentric left ventricular hypertrophy. There is trace tricuspid valve regurgitation. BP: 138 / 75 HR: 96 Rhythm: Sinus MEASUREMENTS (Male / Female) Normal Values Technical Quality:Good 2D ECHO LV Diastolic Diameter PLAX 4.3 cm 4.2 - 5.9 / 3.9 - 5.3 cm LV Systolic Diameter PLAX 3.2 cm IVS Diastolic Thickness 1.2 cm 0.6 - 1.0 / 0.6 - 0.9 cm LVPW Diastolic Thickness 0.9 cm 0.6 - 1.0 / 0.6 - 0.9 cm LV Relative Wall Thickness 0.5 RV Internal Dim ED PLAX 1.7 cm LA Systolic Diameter LX 3.4 cm 3.0 - 4.0 / 2.7 - 3.8 cm M-MODE Aortic Root Diameter MM 2.9 cm AV Cusp Separation MM 1.9 cm DOPPLER AV Peak Velocity 162.0 cm/s AV Peak Gradient 10.5 mmHg LVOT Peak Velocity 109.0 cm/s LVOT Peak Gradient 4.8 mmHg Mitral E Point Velocity 112.0 cm/s Mitral A Point Velocity 77.7 cm/s Mitral E to A Ratio 1.4 TR Peak Velocity 248.0 cm/s TR Peak Gradient 24.6 mmHg FINDINGS LEFT VENTRICLE Normal left ventricular size. Mild concentric left ventricular hypertrophy. The left ventricular systolic function is normal with an estimated ejection fraction in the range of 55-60%. RIGHT VENTRICLE Normal right ventricular size and systolic function. LEFT ATRIUM The left atrial size is normal. RIGHT ATRIUM The right atrial size is normal. ATRIAL SEPTUM Normal atrial septal thickness without atrial level shunting by limited color doppler interrogation. AORTA The aortic root and proximal ascending aorta are normal in size on limited imaging. MITRAL VALVE Structurally normal mitral valve. No mitral valve stenosis or regurgitation. AORTIC VALVE Trileaflet aortic valve. No aortic valve stenosis or regurgitation. TRICUSPID VALVE Structurally normal tricuspid valve. No tricuspid valve stenosis. There is trace tricuspid valve regurgitation. PULMONARY VALVE The pulmonary valve is not well visualized. VESSELS The inferior vena cava is normal in size. PERICARDIUM No pericardial effusion. Nathaniel Lr DO (Electronically Signed) Final Date:01 January 2017 17:40
[2017-01-01 18:35] LABS: BLOOD, URINE NEG (NEG); CALCIUM OXALATE CRYSTALS,URINE RARE /hpf; COMMENT (UR) CULT NOT INDICATED; CULTURE IF INDICATED CULT NOT INDICATED; GLUCOSE,URINE NEG (NEG); KETONE, URINE NEG (NEG); NITRITE,URINE NEG (NEG); PH, URINE 5.5 (5.0-8.5); URINE COLOR LIGHT-YELLOW (YELLW/STRAW)
[2017-01-01] MEDS: NIFEdipine 10 MG CAP PO SCH (21:00)
[2017-01-01] MEDS: POTASSIUM CHLORIDE 20 MEQ CONTROLLED RELEASE TAB PO SCH (21:20)
[2017-01-02] VITALS: BP 106/64; PULSE 71; RESP 16; TEMP 97.8; O2SAT 97
[2017-01-02] MEDS: PIPERACIL-TAZO 3.375 GM PREMIX 50 ML IV SCH ×5 (00:23→23:51)
[2017-01-02] MEDS ORDERED: POTASSIUM CHLORIDE 20 MEQ CONTROLLED RELEASE TAB PO ONE (02:00)
[2017-01-02] MEDS: RESP: ACETYLCYSTEINE 20% 30 ML NEB NEB SCH ×6 (03:47→19:58)
[2017-01-02] MEDS: RESP: IPRATROPIUM 0.5 MG/2.5 ML NEB NEB SCH ×6 (03:47→19:57)
[2017-01-02 04:00] VITALS: BP 122/65; RESP 16; O2SAT 97
[2017-01-02] MEDS ORDERED: PHARMACY ORDERED LAB ONE (05:45)
[2017-01-02] MEDS: VANCOMYCIN INJ 2,000 MG in SODIUM CHLORID 0.9% 500 ML INJ 500 ML IV SCH (06:19)
[2017-01-02 06:22] LABS: BICARBONATE 27.8 MEQ/L (21.0-32.0); POTASSIUM 3.7 MEQ/L (3.5-5.1)
[2017-01-02 08:00] VITALS: BP 132/69; PULSE 76; RESP 19; TEMP 97.1; O2SAT 99
[2017-01-02] MEDS: NIFEdipine 60 MG SUSTAINED RELEASE TAB PO SCH (09:35)
[2017-01-02] MEDS: cloNIDine HCL 0.2 MG TAB PO SCH ×3 (09:35→17:30)
[2017-01-02] MEDS: PANTOPRAZOLE SOD 20 MG DELAYED RELEASE TAB PO SCH (09:35)
[2017-01-02] MEDS: POTASSIUM CHLORIDE 20 MEQ CONTROLLED RELEASE TAB PO SCH ×2 (09:36→20:34)
[2017-01-02] MEDS: guaiFENesin E.R. 600 MG TAB PO SCH ×2 (09:36→20:34)
[2017-01-02] MEDS: ASPIRIN 325 MG TAB PO SCH (09:36)
[2017-01-02] MEDS: LISINOPRIL 20 MG TAB PO SCH (09:36)
[2017-01-02] MEDS: HYDROXYCHLOROQUINE SULFATE 200 MG TAB PO SCH ×2 (09:37→20:34)
[2017-01-02] MEDS: FUROSEMIDE 40 MG TAB PO SCH (09:37)
[2017-01-02] MEDS: METHENAMINE HIPPURATE 1 GM PO SCH ×2 (10:17→20:35)
[2017-01-02] MEDS: GABAPENTIN 300 MG CAP PO SCH ×3 (10:18→20:34)
--- NOTE | 2017-01-02 11:09 | HHI.PR ---
Subjective Remarks No new complaints. Objective Vitals Vital Signs Date Time Temp Pulse Resp B/P (MAP) Pulse Ox O2 Delivery O2 Flow Rate FiO2 01/02/17 08:00 97.1 76 19 132/69 (90) 99 01/02/17 04:00 16 122/65 (84) 97 01/02/17 00:00 97.8 71 16 106/64 (78) 97 01/01/17 20:27 96 Nasal Cannula 01/01/17 20:00 97.3 67 16 104/59 (74) 99 01/01/17 16:00 97.9 79 17 122/83 (96) 99 01/01/17 12:00 99.1 89 17 130/79 (96) 97 Result Diagram: 12/31/16 0600 01/02/17 0534 Imaging Last Impressions Central Venous Line 12/31/16 0000 Signed Impressions: Service Date/Time: Saturday, December 31, 2016 00:00 - CONCLUSION: Uncomplicated Permcath removal. Marky Cid MD Chest X-Ray 12/28/162045 Signed Impressions: Service Date/Time: Wednesday, December 28, 2016 21:00 - CONCLUSION: 1. Right basilar streakiness consistent with atelectasis and/or mild infiltrate. Clinical correlation is recommended. Manuel Adam MD Objective Remarks GENERAL: This is a well-nourished, well-developed patient, in no apparent distress. CARDIOVASCULAR: Regular rate and rhythm without murmurs, gallops, or rubs. RESPIRATORY: Clear to auscultation. Breath sounds equal bilaterally. No wheezes , rales, or rhonchi. GASTROINTESTINAL: Abdomen soft, non-tender, nondistended. Normal active bowel sounds MUSCULOSKELETAL: Extremities without clubbing, cyanosis, or edema. NEURO: Alert & Oriented x4 to person, place, time, situation. Moves all ext x4 A/P Problem List: (1) Bronchopneumonia ICD Codes: J18.0 - Bronchopneumonia, unspecified organism Plan: - cmgmt with ID - Pt is 61 yo woman with advance multiple sclerosis. She has been receiving weekly plasmapheresis on Friday - She presented to the ED with complaints of productive cough that began around 2 - 3 weeks ago. Received around 11 days Levaquin initially but no improvement. - Pt was seen in ED and had sputum and blood cx on 12/24 and was diagnosed with bronchitis then discharged. - Pt was called back to ED 12/28 for positive sputum MRSA/pseudomonas and blood cx staph epi 2/4 - Pt says her hands were also getting weak and MS starting to flare. She has also missed her last 2 treatments. - SPC was last changed around 12/19 per the pt. It is changed monthly per the pt. - blood Cx (12/30/16) - Staph Epi 3/4 bottles - urine cx (12/28) --> pseudomonas, enterococcus - sputum cx (12/29) --> pseudomonas - blood cx (12/30) from permcath - staph epi - PermCath removed (12/31/16) d/t infection. tip cx --> less than 15 CFU - repeat blood cx (01/01/17) --> pending - Echocardiogram (12/31/16) --> no vegetations noted, EF 55-60% - hold off on placing new PermCath until bacteremia resolved - so no plasmapheresis at this time - In the ED pt was given Primaxin as best ALEJANDRINA. - Vanco (12/29 - 12/31) - Zosyn and (12/29 - 12/31) - Cont scheduled duonebs. add mucomyst - PT . add OT - supportive care - DVT prophylaxis (2) Multiple sclerosis ICD Codes: G35 - Multiple sclerosis Status: Chronic Plan: - Pt has missed her last two plasmapheresis sessions prior to admission - Pt reports weakness in the UE - see above (3) Chronic indwelling Mendoza catheter ICD Codes: Z92.89 - Personal history of other medical treatment Status: Chronic Plan: - SPC last changed on 12/19 (4) Essential hypertension ICD Codes: I10 - Essential (primary) hypertension Status: Chronic (5) Fibromyalgia ICD Codes: M79.7 - Fibromyalgia Status: Chronic (6) Lupus (systemic lupus erythematosus) ICD Codes: M32.9 - Systemic lupus erythematosus, unspecified Status: Jan Aguirre DO Jan 02, 2017 11:09
[2017-01-02 12:00] VITALS: BP 108/58; PULSE 66; RESP 17; TEMP 96.5; O2SAT 96
--- NOTE | 2017-01-02 12:45 | HHI.IDPN ---
Subjective Subjective Remarks Patient is a 61 year old female, with known MS, admitted to the hospital after her BC came back (+) and he sputum C/S with MRSA and PSAE. Patient states that she has been sick since the early part of December. She had generalized malaise, and was having some productive cough. It was initially white in color and then it became yellow. She also has had some diarrhea in the beginning which has resolved, as well as vomiting. She continues to have vomiting at least 3 times a day but since she's been taking Zofran that has improved. She's had intermittent fevers the highest has been about 101. Patient gets plasmapheresis every Friday, and she missed a treatment about 2 weeks ago. She went for her treatment on December 24, and at that time she had mentioned that she was having some coughing. She was instructed to go the emergency room , and in the ER she was afebrile. And her chest x-ray did not show any consolidation. 2 blood cultures were done at that time as well as the sputum. Prior to that visit patient has been taking Levaquin as prescribed by her primary care physician. Patient stated that she was given some cough medication and was discharge. Her blood cultures are now reported as growing staph epidermides, and her sputum with MRSA and Pseudomonas. Patient was called back in to the hospital and admitted. Since admission she has not had any fever. She is still coughing up some yellowish phlegm. She gets some dyspnea on exertion. She has occasional pain on her chest when she has a lot of coughing episodes. Her chest x-ray now is showing some basilar infiltrates. Notes reviewed Afebrile Feels same No new complaints Had fairly high grade bacteremia BC (+) 12/24, 12/28, 12/30 TTE negative UC with PSAE and Enterococcus Sputum PSAE Sputum from 12/24 PSAE and MRSA WBC normal Creatinine went up to 1.4 Antibiotics Zosyn vancomycin Lines PIV Permacath - removed Past Medical History Multiple sclerosis diagnosed in late 2012 requiring plasmapheresis weekly Fibromyalgia Bipolar disorder History of obesity Hypertension Lupus Fibromyalgia Gastroparesis Recurrent UTIs Past Surgical History chronic indwelling suprapubic cath. changed monthly 2004 the patient had C3 through C6 anterior cervical discectomy and arthrodesis for severe cervical stenosis and myelopathy 2008 the patient had again the same diagnosis but had C6-C7 anterior cervical discectomy and arthrodesis 2010 the patient had open reduction, internal fixation of a right ankle fracture Right distal fibula fracture Torn lateral meniscus last year and underwent arthroscopic surgery Laparoscopic cholecystectomy Hysterectomy Suprapubic catheter placement PermCath placement Allergies: Coded Allergies: acetaminophen (Unverified Allergy, Severe, ITCHING, 12/28/16) adhesive (Unverified Allergy, Severe, Rash, 12/28/16) albuterol (Unverified Allergy, Severe, SORES, 12/28/16) codeine (Unverified Allergy, Severe, SWELLING AND DIFFICULTY BREATHING, ) hydrocodone (Unverified Allergy, Severe, RASH AND SWELLING, 12/28/16) isradipine (Unverified Allergy, Severe, ELEVATED HEART RATE, 12/28/16) methylprednisolone (Unverified Allergy, Severe, Shortness of Breath, ) oxycodone (Unverified Allergy, Severe, ITCHING, 12/28/16) Objective . Vital Signs Date Time Temp Pulse Resp B/P (MAP) Pulse Ox O2 Delivery O2 Flow Rate FiO2 01/02/17 12:00 96.5 66 17 108/58 (75) 96 01/02/17 08:00 97.1 76 19 132/69 (90) 99 01/02/17 04:00 16 122/65 (84) 97 01/02/17 00:00 97.8 71 16 106/64 (78) 97 01/01/17 20:27 96 Nasal Cannula 01/01/17 20:00 97.3 67 16 104/59 (74) 99 01/01/17 16:00 97.9 79 17 122/83 (96) 99 . Laboratory Tests Test 01/01/17 23:20 01/02/17 05:34 Potassium Level 3.5 MEQ/L 3.7 MEQ/L Blood Urea Nitrogen 8 MG/DL Creatinine 1.46 MG/DL Random Glucose 93 MG/DL Calcium Level 8.8 MG/DL Sodium Level 146 MEQ/L Chloride Level 112 MEQ/L Carbon Dioxide Level 27.8 MEQ/L Anion Gap 6 MEQ/L Estimat Glomerular Filtration Rate 44 ML/MIN Microbiology Date/Time Source Procedure Growth Status 01/02/17 05:34 Blood Peripheral Aerobic Blood Culture Pending Received 01/02/17 05:34 Blood Peripheral Anaerobic Blood Culture Pending Received 01/01/17 23:20 Blood Peripheral Aerobic Blood Culture Pending Received 01/01/17 23:20 Blood Peripheral Anaerobic Blood Culture Pending Received 12/30/16 16:05 Blood Other Aerobic Blood Culture - Final Staphylococcus Epidermidis Resulted 12/30/16 16:05 Blood Other Anaerobic Blood Culture - Preliminary NO GROWTH IN 3 DAYS Resulted 12/30/16 16:00 Blood Other Aerobic Blood Culture - Final Staphylococcus Epidermidis Resulted 12/30/16 16:00 Blood Other Anaerobic Blood Culture - Preliminary NO GROWTH IN 3 DAYS Resulted 12/31/16 14:03 Catheter Tip Vas Cath Wound Culture - Final Complete Imaging Last Impressions Chest X-Ray 12/28/162045 Signed Impressions: Service Date/Time: Wednesday, December 28, 2016 21:00 - CONCLUSION: 1. Right basilar streakiness consistent with atelectasis and/or mild infiltrate. Clinical correlation is recommended. Manuel Adam MD Physical Exam GENERAL: awake and alert, NAD SKIN: Warm and dry. No generalized rash HEAD: Atraumatic. Normocephalic. No temporal wasting, or tenderness. EYES: [place] conjunctiva. No petechia or hemorrhage. No scleral icterus. No injection or drainage. EARS, NOSE AND THROAT: Nose without bleeding or purulent nasal discharge. Mucous membranes pink and moist. No oral lesions noted. NECK: Trachea midline. Supple and not tender, no meningeal signs.dry dressing over previous permacath site CARDIOVASCULAR: Regular rate and rhythm. No murmurs, rubs or gallops heard RESPIRATORY: Clear to auscultation. Breath sounds equal bilaterally. No rales , wheezing or rhonchi. Decreased BS at the bases. ABDOMEN: Soft, non-tender, nondistended. Bowel sounds present and normoactive. No guarding. No rebound. No organomegaly. : SPC in place, site ok, urine looks ok EXTREMITIES: No clubbing, cyanosis, or edema. No joint effusion. No calf tenderness. Well perfused and warm. NEUROLOGICAL: Awake and alert. Cranial nerves grossly intact. weakness in her BLE. PSYCHIATRIC: Normal affect, calm and cooperative. LINE: PIV ok. Assessment & Plan Remarks IMPRESSION PNA, patient with known MS, C/S with MRSA and PSAE - latest sputum with PSAE UTI, has SPC, C/S with PSAE and Enterococcus - repeat UA better (+) BC with Staph epi, due to CABSI, has permacath - very long bacteremia Multiple sclerosis - on plasmapheresis Known Lupus Renal insufficiency RECOMMENDATION Follow Repeat BC Will need SHADY Continue Vancomycin Continue Zosyn If able to, delay placement of new permacath until infection cleared Monitor progress Follow new C/S Follow creatinine Spoke with micro - they will do sensitivity testing on the cath tip C/S Doppler US RUE to eval thrombosis D/W Mili Jones MD Jan 02, 2017 12:45
--- NOTE | 2017-01-02 15:11 | PD.ONC.PN ---
Subjective Subjective Remarks Afebrile Patient getting SHADY later this afternoon to rule out endocarditis She reports that she is feeling about the same Objective Data Date Time Temp Pulse Resp B/P (MAP) Pulse Ox O2 Delivery O2 Flow Rate FiO2 01/02/17 12:00 96.5 66 17 108/58 (75) 96 01/02/17 08:00 97.1 76 19 132/69 (90) 99 01/02/17 04:00 16 122/65 (84) 97 01/02/17 00:00 97.8 71 16 106/64 (78) 97 01/01/17 20:27 96 Nasal Cannula 01/01/17 20:00 97.3 67 16 104/59 (74) 99 01/01/17 16:00 97.9 79 17 122/83 (96) 99 01/02/17 01/02/17 01/02/17 07:00 15:00 23:00 Intake Total 550 ml Output Total 250 ml Balance 300 ml Result Diagram: 12/31/16 0600 01/02/17 0534 Laboratory Results Laboratory Tests Test 01/01/17 18:03 01/01/17 23:20 01/02/17 05:34 Urine Color LIGHT-YELLOW Urine Turbidity CLEAR Urine pH 5.5 Urine Specific [place] 1.010 Urine Protein NEG mg/dL Urine Glucose (UA) NEG mg/dL Urine Ketones NEG mg/dL Urine Occult Blood NEG Urine Nitrite NEG Urine Bilirubin NEG Urine Urobilinogen LESS THAN 2.0 MG/DL Urine Leukocyte Esterase TRACE Urine RBC 1 /hpf Urine WBC 4 /hpf Urine Calcium Oxalate Crystals RARE /hpf Microscopic Urinalysis Comment CULT NOT INDICATED Potassium Level 3.5 MEQ/L 3.7 MEQ/L Blood Urea Nitrogen 8 MG/DL Creatinine 1.46 MG/DL Random Glucose 93 MG/DL Calcium Level 8.8 MG/DL Sodium Level 146 MEQ/L Chloride Level 112 MEQ/L Carbon Dioxide Level 27.8 MEQ/L Anion Gap 6 MEQ/L Estimat Glomerular Filtration Rate 44 ML/MIN Vancomycin Level Trough 43.0 MCG/ML Culture Results Microbiology Date/Time Source Procedure Growth Status 01/02/17 05:34 Blood Peripheral Aerobic Blood Culture Pending Received 01/02/17 05:34 Blood Peripheral Anaerobic Blood Culture Pending Received 01/01/17 23:20 Blood Peripheral Aerobic Blood Culture Pending Received 01/01/17 23:20 Blood Peripheral Anaerobic Blood Culture Pending Received 12/30/16 16:05 Blood Other Aerobic Blood Culture - Final Staphylococcus Epidermidis Resulted 12/30/16 16:05 Blood Other Anaerobic Blood Culture - Preliminary NO GROWTH IN 3 DAYS Resulted 12/30/16 16:00 Blood Other Aerobic Blood Culture - Final Staphylococcus Epidermidis Resulted 12/30/16 16:00 Blood Other Anaerobic Blood Culture - Preliminary NO GROWTH IN 3 DAYS Resulted 12/31/16 14:03 Catheter Tip Vas Cath Wound Culture - Preliminary Resulted Administered Medications Medications (Trade) Dose Ordered Sig/Sury Route PRN Reason Start Time Stop Time Status Last Admin Dose Admin Piperacillin Sod/ Tazobactam Sod 50 ml @ 100 mls/hr Q6H IV 12/28/16 23:00 01/02/17 10:19 Ondansetron HCl (Zofran Inj) 4 mg Q6H PRN IV NAUSEA OR VOMITING 12/29/16 07:15 12/31/16 21:18 Aspirin (Aspirin) 325 mg DAILY PO 12/30/16 09:00 01/02/17 09:36 Clonidine (Catapres) 0.2 mg TID PO 12/29/16 18:00 01/02/17 09:35 Furosemide (Lasix) 40 mg DAILY PO 12/30/16 09:00 01/02/17 09:37 Gabapentin (Neurontin) 300 mg DAILY@1300 PO 12/30/16 13:00 01/02/17 13:00 Gabapentin (Neurontin) 600 mg BID PO 12/29/16 21:00 01/02/17 10:18 Hydromorphone HCl (Dilaudid) 4 mg Q8H PRN PO PAIN over 4 12/29/16 14:15 12/31/16 18:44 Hydroxychloroquine Sulfate (Plaquenil) 200 mg BID PO 12/29/16 21:00 01/02/17 09:37 Lisinopril (Prinivil) 20 mg DAILY PO 12/30/16 09:00 01/02/17 09:36 Nifedipine (Procardia) 30 mg HS PO 12/29/16 21:00 12/31/16 21:04 Nifedipine (Procardia Xl) 60 mg DAILY PO 12/30/16 09:00 01/02/17 09:35 Pantoprazole Sodium (Protonix) 20 mg DAILY PO 12/30/16 09:00 01/02/17 09:35 Patient Own Medication PT OWN MED: METHENAM... BID PO 12/29/16 21:00 Future hold 01/02/17 10:17 Ipratropium [place] (Atrovent Neb) 0.5 mg Q4HR NEB NEB 12/29/16 16:00 01/02/17 11:27 Guaifenesin (Mucinex Er) 600 mg BID PO 12/29/16 21:00 01/02/17 09:36 Vancomycin HCl 2000 mg/Sodium Chloride 520 ml @ 257.5 mls/ hr Q18H IV 12/31/16 18:00 Future Hold 01/02/17 06:19 Acetylcysteine (Mucomyst 20% Neb) 2 ml Q4HR NEB NEB 01/01/17 12:00 01/02/17 11:27 Potassium Chloride (KCl) 20 meq Q12HR PO 01/01/17 21:00 01/02/17 09:36 Objective Remarks GENERAL: Older female, supine in bed getting therapy from PT SKIN: Warm and dry. HEAD: Normocephalic. EYES: No injection or drainage. NECK: Supple, trachea midline. CARDIOVASCULAR: Regular rate and rhythm without murmurs. RESPIRATORY: Breath sounds equal bilaterally. No accessory muscle use. GASTROINTESTINAL: Abdomen soft, non-tender, nondistended. EXTREMITIES: No cyanosis, or edema. MUSCULOSKELETAL: Adequate muscle tone. NEUROLOGICAL: Moving all extremities. Normal speech. Alert and oriented. Assessment/Plan Problem List: (1) Multiple sclerosis exacerbation ICD Codes: G35 - Multiple sclerosis Status: Chronic Plan: -- On Aubagio per neurology -- This is supplemented with plasma exchange on a weekly, outpatient basis. -- This is likely an acute exacerbation of MS d/t bacteremia. -- Hold off on plasma exchange until bacteremia is cleared. (2) Sepsis ICD Codes: A41.9 - Sepsis, unspecified organism Plan: -- She was seen in the ER on 12/24/16 and was diagnosed with bronchitis -- Blood cultures were found to be positive and the pt was called back for IV Abx -- Blood cultures were taken from Permacath on 12/31 and were found to be growing gram + cocci in pairs/clusters. -- Permacath tip culture pending Assessment y/o female admitted for IV antibiotics after her blood cultures grew out from previous ER visit. Plan 1. Patient getting SHADY today to rule out endocarditis 2. Continue IV antibiotics per infectious disease. 3. Continue physical therapy while inpatient. 4. New blood cultures drawn since permacath removed; await results. 5. Would like to try to hold off on new permacath placement until necessary given bacteremia. Attending Statement The exam, history, and the medical decision-making described in the above note were completed with the assistance of the mid-level provider. I reviewed and agree with the findings presented. I attest that I had a [id number] encounter with the patient on the same day, and personally performed and documented my assessment and findings in the medical record. PT sleeping during rounds, discussed w/ culture results. Abx continue. Ynu Quiles Jan 02, 2017 15:11 Beatriz Trevino MD Jan 02, 2017 15:18
--- NOTE | 2017-01-02 15:44 | MB ---
cc: MIRELA EMERY DATE OF CONSULTATION: 01/02/2017 INDICATION Bacteremia, request for transesophageal echocardiogram. HISTORY OF PRESENT ILLNESS This is a 61-year-old female with history of advanced multiple sclerosis, bipolar disorder, hypertension, lupus, fibromyalgia. She presented with 2-3 weeks of productive cough. She was in the emergency department back on December 28. She had MRSA and pseudomonas in the sputum. She had prior blood cultures positive for staph epi. We are consulted now for consideration of transesophageal echocardiogram. She now has three of four bottles positive for staph epi, blood culture from 12/30/2016. Transthoracic echo showed no obvious vegetation, ejection fraction was normal. She has no prior history of known heart disease. PAST MEDICAL HISTORY Past medical history as mentioned above. 1. Multiple sclerosis. 2. Fibromyalgia. 3. Bipolar disorder. 4. Hypertension. 5. Lupus. 6. UTIs. MEDICATION Home medications: See med reconciliation. ALLERGIES ACETAMENOPHEN, ADHESIVE, ALBUTEROL, CODEIENE, HYDROCODONE, OXYCODONE. SOCIAL HISTORY Lives with her , 25 years, never smoked, no alcohol use. REVIEW OF SYSTEMS 12-point review of systems is performed and negative unless otherwise noted in the history of present illness. PHYSICAL EXAMINATION VITAL SIGNS: Temperature 97, pulse 76, blood pressure 132/69 mmHg. GENERAL: Alert and oriented x3, in no acute distress. HEENT: Exam shows pupils reactive to light and accommodation. Extraocular movements are intact. NECK: No elevation in jugular venous distension. No thyromegaly or lymphadenopathy. No carotid bruits. LUNGS: Clear to auscultation bilaterally. CARDIOVASCULAR: Regular rate and rhythm without murmurs, rubs or gallops. ABDOMEN: Nontender, nondistended. Good bowel sounds. No hepatosplenomegaly. EXTREMITIES: No clubbing, cyanosis or edema. Good peripheral pulses. Cranial nerves intact. Motor and sensory grossly intact. LABORATORY DATA WBC 6.8, hemoglobin is 10.5, platelet count 225, sodium 146, potassium 3.7, BUN is 8, creatinine is 1.46. ASSESSMENT 1. Bacteremia. PLAN Risks, benefits and alternatives were discussed with the patient. Patient is agreeable to proceed forward with transesophageal echocardiogram. Will keep her n.p.o. and plan for possible SHADY later today. MD AWAIS Peterson /12:11 PM /3:19 PM
[2017-01-02 16:00] VITALS: BP 116/71; PULSE 65; RESP 18; TEMP 96.6; O2SAT 98
[2017-01-02] MEDS: HYDROmorphone HCL 4 MG TAB PO PRN (17:38)
[2017-01-02 20:00] VITALS: BP 125/57; PULSE 75; RESP 17; TEMP 96.4; O2SAT 99
[2017-01-02] MEDS: NIFEdipine 10 MG CAP PO SCH (20:34)
[2017-01-03] VITALS (10 sets, daily range): BP systolic 118–152; BP diastolic 60–83; PULSE 88–99; RESP 16–18; TEMP 97.5–98.4; O2SAT 90–99
[2017-01-03] MEDS: RESP: IPRATROPIUM 0.5 MG/2.5 ML NEB NEB SCH ×6 (00:11→20:30)
[2017-01-03] MEDS: HYDROmorphone HCL 4 MG TAB PO PRN (01:10)
[2017-01-03] MEDS: RESP: ACETYLCYSTEINE 20% 30 ML NEB NEB SCH ×6 (04:00→20:30)
[2017-01-03] MEDS: PIPERACIL-TAZO 3.375 GM PREMIX 50 ML IV SCH ×4 (05:05→22:59)
[2017-01-03] MEDS: ONDANSETRON HCL 4 MG/2 ML VIAL IV PRN (05:20)
[2017-01-03 06:04] LABS: BICARBONATE 24.1 MEQ/L (21.0-32.0); POTASSIUM 3.9 MEQ/L (3.5-5.1)
[2017-01-03] MEDS: cloNIDine HCL 0.2 MG TAB PO SCH ×3 (09:00→17:07)
[2017-01-03] MEDS: NIFEdipine 60 MG SUSTAINED RELEASE TAB PO SCH (09:00)
[2017-01-03] MEDS: GABAPENTIN 300 MG CAP PO SCH ×3 (09:00→20:17)
[2017-01-03] MEDS: METHENAMINE HIPPURATE 1 GM PO SCH ×2 (09:00→20:17)
[2017-01-03] MEDS: guaiFENesin E.R. 600 MG TAB PO SCH ×2 (09:00→20:17)
[2017-01-03] MEDS ORDERED: PROPOFOL 200 MG/20 ML AMP IV ONE (12:45)
--- NOTE | 2017-01-03 13:29 | ECHRPT ---
Indication: endocarditis CONCLUSIONS Normal left ventricular size and wall thickness. The left ventricular systolic function is normal wi th an estimated ejection fraction in the range of 60-65%. Left ventricular diastolic function parameters a re normal. Trileaflet aortic valve. Mild thickening of the aortic valve leaflets. No aortic valve regurgitation. Lambl's excrescences of the aortic valve are present. No aortic valve stenosis. Mild thickening of the tricuspid valve leaflets. There is trace tricuspid valve regurgitation. No tr icuspid valve stenosis. no vegetations BP: / HR: Rhythm: Technical Quality: Medications Complications There were no complications prior to, during or in recovery from the transesophag eal echocardiogram.. Proc. Components The patient was brought to the diagnostic imaging area in a fasting state after o btaining an informed consent.. SHADY was performed at multiple levels. The patient tolerated the proced ure well and there were no complications. The patient was transferred to the floor in satisfactory condition .. FINDINGS LEFT VENTRICLE Normal left ventricular size and wall thickness. The left ventricular systolic function is normal wi th an estimated ejection fraction in the range of 60-65%. Left ventricular diastolic function parameters a re normal. RIGHT VENTRICLE Normal right ventricular size and systolic function. LEFT ATRIUM The left atrial size is normal. RIGHT ATRIUM The right atrial size is normal. ATRIAL SEPTUM Normal atrial septal thickness without atrial level shunting by limited color doppler interrogation. AORTA The aortic root and proximal ascending aorta are normal in size on limited imaging. MITRAL VALVE Structurally normal mitral valve. No mitral valve stenosis or regurgitation. AORTIC VALVE Trileaflet aortic valve. Mild thickening of the aortic valve leaflets. No aortic valve regurgitation. Lambl's excrescences of the aortic valve are present. No aortic valve stenosis. TRICUSPID VALVE Mild thickening of the tricuspid valve leaflets. There is trace tricuspid valve regurgitation. No tr icuspid valve stenosis. VESSELS The inferior vena cava is normal in size. PULMONARY VALVE The pulmonary valve is not well visualized. PERICADIUM No pericardial effusion. Jam Holly MD, FACC (Electronically Signed) Final Date:03 January 2017 13:28
[2017-01-03] MEDS: LISINOPRIL 20 MG TAB PO SCH (14:34)
[2017-01-03] MEDS: HYDROXYCHLOROQUINE SULFATE 200 MG TAB PO SCH ×2 (14:35→20:17)
[2017-01-03] MEDS: POTASSIUM CHLORIDE 20 MEQ CONTROLLED RELEASE TAB PO SCH ×2 (14:35→20:17)
[2017-01-03] MEDS: PANTOPRAZOLE SOD 20 MG DELAYED RELEASE TAB PO SCH (14:35)
[2017-01-03] MEDS: ASPIRIN 325 MG TAB PO SCH (14:36)
[2017-01-03] MEDS: FUROSEMIDE 40 MG TAB PO SCH (14:36)
--- NOTE | 2017-01-03 15:42 | HHI.PR ---
Subjective Remarks No new complaints. Objective Vitals Vital Signs Date Time Temp Pulse Resp B/P (MAP) Pulse Ox O2 Delivery O2 Flow Rate FiO2 01/03/17 12:00 97.5 94 17 129/71 (90) 90 01/03/17 08:41 95 21 01/03/17 08:00 98.4 91 16 124/66 (85) 95 01/03/17 06:00 97 127/68 (87) 97 01/03/17 01:02 91 118/61 (80) 01/03/17 00:14 99 01/03/17 00:00 97.6 99 17 152/83 (106) 96 01/02/17 20:00 96.4 75 17 125/57 (79) 99 01/02/17 16:00 96.6 65 18 116/71 (86) 98 Result Diagram: 12/31/16 0600 01/03/17 0502 Imaging Last Impressions Central Venous Line 12/31/16 0000 Signed Impressions: Service Date/Time: Saturday, December 31, 2016 00:00 - CONCLUSION: Uncomplicated Permcath removal. Marky Cid MD Chest X-Ray [id number]/28/162045 Signed Impressions: Service Date/Time: Wednesday, December 28, 2016 21:00 - CONCLUSION: 1. Right basilar streakiness consistent with atelectasis and/or mild infiltrate. Clinical correlation is recommended. Manuel Adam MD Objective Remarks GENERAL: This is a well-nourished, well-developed patient, in no apparent distress. CARDIOVASCULAR: Regular rate and rhythm without murmurs, gallops, or rubs. RESPIRATORY: Clear to auscultation. Breath sounds equal bilaterally. No wheezes , rales, or rhonchi. GASTROINTESTINAL: Abdomen soft, non-tender, nondistended. Normal active bowel sounds MUSCULOSKELETAL: Extremities without clubbing, cyanosis, or edema. NEURO: Alert & Oriented x4 to person, place, time, situation. Moves all ext x4 A/P Problem List: (1) Bronchopneumonia ICD Codes: J18.0 - Bronchopneumonia, unspecified organism Plan: - cmgmt with ID - Pt is 61 yo woman with advance multiple sclerosis. She has been receiving weekly plasmapheresis on Friday - She presented to the ED with complaints of productive cough that began around 2 - 3 weeks ago. Received around 11 days Levaquin initially but no improvement. - Pt was seen in ED and had sputum and blood cx on 12/24 and was diagnosed with bronchitis then discharged. - Pt was called back to ED 12/28 for positive sputum MRSA/pseudomonas and blood cx staph epi 2/ - Pt says her hands were also getting weak and MS starting to flare. She has also missed her last 2 treatments. - SPC was last changed around 12/19 per the pt. It is changed monthly per the pt. - blood Cx (12/30/16) - Staph Epi 3/4 bottles - urine cx (12/28) --> pseudomonas, enterococcus - sputum cx (12/29) --> pseudomonas - blood cx (12/30) from permcath - staph epi - PermCath removed (12/31/16) d/t infection. tip cx --> less than 15 CFU - repeat blood cx (01/01/17) --> NGTD - repeat Blood Cx (01/02/17) --> NGTD - Echocardiogram (12/31/16) --> no vegetations noted, EF 55-60% - SHADY (01/03/17) --> NO vegetation - hold off on placing new PermCath until bacteremia resolved - so no plasmapheresis at this time - In the ED pt was given Primaxin as best ALEJANDRINA. - Vanco (12/29 - 12/31) - Zosyn and (12/29 - present) - Cont scheduled duonebs. add mucomyst - repeat CXR in AM - PT . add OT - supportive care - DVT prophylaxis (2) Multiple sclerosis ICD Codes: G35 - Multiple sclerosis Status: Chronic Plan: - Pt has missed her last two plasmapheresis sessions prior to admission - Pt reports weakness in the UE - see above (3) Chronic indwelling Mendoza catheter ICD Codes: Z92.89 - Personal history of other medical treatment Status: Chronic Plan: - SPC last changed on 12/19 (4) Essential hypertension ICD Codes: I10 - Essential (primary) hypertension Status: Chronic (5) Fibromyalgia ICD Codes: M79.7 - Fibromyalgia Status: Chronic (6) Lupus (systemic lupus erythematosus) ICD Codes: M32.9 - Systemic lupus erythematosus, unspecified Status: Jan Aguirre DO Jan 03, 2017 15:42
--- NOTE | 2017-01-03 17:14 | RADRPT ---
EXAM DATE/TIME: 01/03/2017 11:49 [facility] COMPARISON: No previous studies available for comparison. INDICATIONS : Right arm pain and swelling. MEDICAL HISTORY : Hypertension. Gastroesophageal reflux disease. Methicillin-resistant Staphylococcus aureus. Periphera l neuropathy. Multiple sclerosis. Ulcer. Ovarian cysts. Arthritis. Lupus. Rheumatoid arthritis. Spina l stenosis. Meningitis. SURGICAL HISTORY : Cholecystectomy. Tubal ligation. Hysterectomy. ENCOUNTER: Initial ACUITY: 1 day PAIN SCORE: 4/10 LOCATION: Right arm. FINDINGS: There is spontaneous flow documented in the brachial, basilic, cephalic, axillary, and subclavian vei ns. The vessels are compressible and augmentation response is documented. No filling defects are se en. The flow is phasic with respiration. Direction of flow in the jugular vein is caudal. CONCLUSION: Negative for deep venous thrombosis. Fabien Sterling MD FACR on January 03, 2017 at 17:12 Board Certified Radiologist. This report was verified electronically.
[2017-01-03] MEDS: NIFEdipine 10 MG CAP PO SCH (20:17)
[2017-01-04] VITALS: BP 117/68; PULSE 86; RESP 17; TEMP 97.1; O2SAT 97
[2017-01-04] MEDS: RESP: IPRATROPIUM 0.5 MG/2.5 ML NEB NEB SCH ×6 (01:20→20:31)
[2017-01-04] MEDS: RESP: ACETYLCYSTEINE 20% 30 ML NEB NEB SCH ×6 (04:00→20:31)
[2017-01-04] MEDS: PIPERACIL-TAZO 3.375 GM PREMIX 50 ML IV SCH ×2 (05:36→09:57)
[2017-01-04 08:00] VITALS: BP 132/71; PULSE 99; RESP 17; TEMP 98.8; O2SAT 96
[2017-01-04] MEDS: METHENAMINE HIPPURATE 1 GM PO SCH ×2 (09:00→22:59)
--- NOTE | 2017-01-04 09:01 | RADRPT ---
EXAM DATE/TIME: 01/04/2017 08:27 [facility] COMPARISON: CHEST SINGLE AP, December 28, 2016, 21:00. CHEST PA & LAT, August 15, 2015, 10:32. INDICATIONS : Short of breath. MEDICAL HISTORY : Hypertension. Hypercholesterolemia. Acute bronchitis. SURGICAL HISTORY : Vas cath. ENCOUNTER: Subsequent ACUITY: 2 weeks PAIN SCORE: 0/10 LOCATION: Bilateral chest FINDINGS: PA and lateral views of the chest demonstrate the lungs to be symmetrically aerated without evidence of mass, infiltrate or effusion. The cardiomediastinal contours are unremarkable. Osseous structure s are intact. CONCLUSION: No acute disease. Rob Strauss MD on January 04, 2017 at 8:59 Board Certified Radiologist. This report was verified electronically.
[2017-01-04] MEDS: ASPIRIN 325 MG TAB PO SCH (09:55)
[2017-01-04] MEDS: NIFEdipine 60 MG SUSTAINED RELEASE TAB PO SCH (09:55)
[2017-01-04] MEDS: ONDANSETRON HCL 4 MG/2 ML VIAL IV PRN (09:55)
[2017-01-04] MEDS: POTASSIUM CHLORIDE 20 MEQ CONTROLLED RELEASE TAB PO SCH (09:55)
[2017-01-04] MEDS: GABAPENTIN 300 MG CAP PO SCH ×3 (09:56→22:59)
[2017-01-04] MEDS: cloNIDine HCL 0.2 MG TAB PO SCH ×3 (09:56→17:35)
[2017-01-04] MEDS: guaiFENesin E.R. 600 MG TAB PO SCH ×2 (09:56→22:58)
[2017-01-04] MEDS: LISINOPRIL 20 MG TAB PO SCH (09:56)
[2017-01-04] MEDS: HYDROXYCHLOROQUINE SULFATE 200 MG TAB PO SCH ×2 (09:57→22:58)
[2017-01-04] MEDS: FUROSEMIDE 40 MG TAB PO SCH (09:57)
[2017-01-04] MEDS: PANTOPRAZOLE SOD 20 MG DELAYED RELEASE TAB PO SCH (09:57)
--- NOTE | 2017-01-04 10:35 | RADRPT ---
EXAM DATE/TIME: 01/04/2017 10:22 [facility] COMPARISON: CT BRAIN W/O CONTRAST, June 28, 2016, 21:52. INDICATIONS : Altered mental status. RADIATION DOSE: 48.31 CTDIvol (mGy) MEDICAL HISTORY : Cardiovascular disease. Multiple sclerosis. Methicillin-resistant Staphylococcus aureus. SURGICAL HISTORY : Cholecystectomy. Hysterectomy. ENCOUNTER: Initial ACUITY: 1 day PAIN SCALE: 0/10 LOCATION: cranial TECHNIQUE: Multiple contiguous axial images were obtained of the head. Using automated exposure control and adj ustment of the mA and/or kV according to patient size, radiation dose was kept as low as reasonably a chievable to obtain optimal diagnostic quality images. DICOM format image data is available electro nically for review and comparison. FINDINGS: Ventricles and cisterns are of normal size and configuration. No hemorrhage, infarct, or mass. Chroni c opacification of the maxillary sinuses and bilateral ethmoid and left sphenoid sinus opacification. No fractures. CONCLUSION: 1. Normal appearance of the brain. Rob Strauss MD on January 04, 2017 at 10:33 Board Certified Radiologist. This report was verified electronically.
[2017-01-04] MEDS: SODIUM CHLOR 0.9% 1000 ML INJ 1,000 ML IV SCH ×2 (11:15→21:15)
--- NOTE | 2017-01-04 11:52 | HHI.PR ---
Subjective Remarks Patient noted to be fatigued/lethargic drifting off to sleep after exam Patient reports feeling fatigued despite sleeping well through the night offers no other complaints at this time Objective Vitals Vital Signs Date Time Temp Pulse Resp B/P (MAP) Pulse Ox O2 Delivery O2 Flow Rate FiO2 01/04/17 08:00 98.8 99 17 132/71 (91) 96 01/04/17 00:00 97.1 86 17 117/68 (84) 97 01/03/17 20:00 97.7 94 18 122/60 (80) 96 01/03/17 16:48 95 21 01/03/17 16:00 98.2 88 18 130/80 (97) 97 01/03/17 12:00 97.5 94 17 129/71 (90) 90 Result Diagram: 12/31/16 0600 01/03/17 0502 Other Results Laboratory Tests Test 01/01/17 18:03 01/01/17 23:20 01/02/17 05:34 01/03/17 05:02 Urine Color LIGHT-YELLOW Urine Turbidity CLEAR Urine pH 5.5 Urine Specific [place] 1.010 Urine Protein NEG mg/dL Urine Glucose (UA) NEG mg/dL Urine Ketones NEG mg/dL Urine Occult Blood NEG Urine Nitrite NEG Urine Bilirubin NEG Urine Urobilinogen LESS THAN 2.0 MG/DL Urine Leukocyte Esterase TRACE Urine RBC 1 /hpf Urine WBC 4 /hpf Urine Calcium Oxalate Crystals RARE /hpf Microscopic Urinalysis Comment CULT NOT INDICATED Potassium Level 3.5 MEQ/L 3.7 MEQ/L 3.9 MEQ/L Blood Urea Nitrogen 8 MG/DL 15 MG/DL Creatinine 1.46 MG/DL 2.83 MG/DL Random Glucose 93 MG/DL 97 MG/DL Calcium Level 8.8 MG/DL 8.9 MG/DL Sodium Level 146 MEQ/L 144 MEQ/L Chloride Level 112 MEQ/L 110 MEQ/L Carbon Dioxide Level 27.8 MEQ/L 24.1 MEQ/L Anion Gap 6 MEQ/L 10 MEQ/L Estimat Glomerular Filtration Rate 44 ML/MIN 21 ML/MIN Vancomycin Level Trough 43.0 MCG/ML Random Vancomycin Level 56.2 COMMENT Imaging Last Impressions Central Venous Line 12/31/16 0000 Signed Impressions: Service Date/Time: Saturday, December 31, 2016 00:00 - CONCLUSION: Uncomplicated Permcath removal. Marky Cid MD Chest X-Ray 12/28/162045 Signed Impressions: Service Date/Time: Wednesday, December 28, 2016 21:00 - CONCLUSION: 1. Right basilar streakiness consistent with atelectasis and/or mild infiltrate. Clinical correlation is recommended. Manuel Adam MD Objective Remarks GENERAL: This is a well-nourished, well-developed patient, in no apparent distress. CARDIOVASCULAR: Regular rate and rhythm without murmurs, gallops, or rubs. RESPIRATORY: Clear to auscultation. Breath sounds equal bilaterally. No wheezes , rales, or rhonchi. GASTROINTESTINAL: Abdomen soft, non-tender, nondistended. Normal active bowel sounds MUSCULOSKELETAL: Extremities without clubbing, cyanosis, or edema. NEURO: Alert & Oriented x4 to person, place, time, situation. Moves all ext x4 A/P Problem List: (1) Bronchopneumonia ICD Codes: J18.0 - Bronchopneumonia, unspecified organism Plan: - cmgmt with ID - Pt is 61 yo woman with advance multiple sclerosis. She has been receiving weekly plasmapheresis on Friday - She presented to the ED with complaints of productive cough that began around 2 - 3 weeks ago. Received around 11 days Levaquin initially but no improvement. - Pt was seen in ED and had sputum and blood cx on 12/24 and was diagnosed with bronchitis then discharged. - Pt was called back to ED 12/28 for positive sputum MRSA/pseudomonas and blood cx staph epi 2/4 - Pt says her hands were also getting weak and MS starting to flare. She has also missed her last 2 treatments. - SPC was last changed around 12/19 per the pt. It is changed monthly per the pt. - blood Cx (12/30/16) - Staph Epi 3/4 bottles - urine cx (12/28) --> pseudomonas, enterococcus - sputum cx (12/29) --> pseudomonas - blood cx (12/30) from permcath - staph epi - PermCath removed (12/31/16) d/t infection. tip cx --> less than 15 CFU - repeat blood cx (01/01/17) --> NGTD - repeat Blood Cx (01/02/17) --> NGTD - Echocardiogram (12/31/16) --> no vegetations noted, EF 55-60% - SHADY (01/03/17) --> NO vegetation - hold off on placing new PermCath until bacteremia resolved - so no plasmapheresis at this time - In the ED pt was given Primaxin as best ALEJANDRINA. - Vanco (12/29 - 12/31) - Zosyn and (12/29 - present) - Cont scheduled duonebs. and mucomyst - 01/04/17 repeat CXR- no acute disease - PT and OT - supportive care - DVT prophylaxis (2) Multiple sclerosis ICD Codes: G35 - Multiple sclerosis Status: Chronic Plan: - Pt has missed her last two plasmapheresis sessions prior to admission - Pt reports weakness in the UE - see above (3) Chronic indwelling Mendoza catheter ICD Codes: Z92.89 - Personal history of other medical treatment Status: Chronic Plan: - SPC last changed on 12/19 (4) Essential hypertension ICD Codes: I10 - Essential (primary) hypertension Status: Chronic Plan: Controlled continue Clonidine 0.2 mg Q6H PRN SBP >160, Lisinopril 20mg daily, Nifedipine 60 mg PO daily, Nifedipine 30 mg PO QHS monitor BP trend (5) Fibromyalgia ICD Codes: M79.7 - Fibromyalgia Status: Chronic (6) Lupus (systemic lupus erythematosus) ICD Codes: M32.9 - Systemic lupus erythematosus, unspecified Status: Chronic (7) THONG (acute kidney injury) ICD Codes: N17.9 - Acute kidney failure, unspecified Plan: Patient noted to be more fatigued/lethargic today likely related renal function creatinine trending upward 0.96 -> 1.46 -> 2.83 Patient on Vancomycin which has been placed on hold- ID notified repeat BMP pending start NS at 100ml/H (8) Altered mental status ICD Codes: R41.82 - Altered mental status, unspecified Plan: Patient reports feeling fatigued despite sleeping well through the night CT head ordered and reviewed no acute finding STAT CBC and BMP pending creatinine from 01/03 elevated 2.83 likely contributing to AMS see THONG above (9) Diarrhea ICD Codes: R19.7 - Diarrhea, unspecified Plan: Nurse reports multiple loose watery BMs Will check stool studies and c diff Assessment and Plan Patient examined. Assessment and plan formulated with Katherin [place] PA-C. I agree with the above. - elevated urine eosinophils, elevated Vacomycin level - THONG possibly d/t interstitial nephritis - stop lasix/KCL/lisinopril - IVFs - steroids? - repeat BMP in AM Autumn Maldonado Jan 04, 2017 11:51 Jan Stevens DO Jan 04, 2017 22:38
[2017-01-04 12:00] VITALS: BP 131/80; PULSE 85; RESP 19; TEMP 96.9; O2SAT 96
[2017-01-04 12:42] LABS: AUTOMATED NEUTROPHIL # 6.3 TH/MM3 (1.8-7.7); BASOPHIL # 0.1 TH/MM3 (0-0.2); BASOPHIL % 0.7 % (0.0-2.0); EOSINOPHIL # 0.8 TH/MM3 (0-0.4); EOSINOPHIL % 8.9 % (0.0-4.0); HEMO FLAGS DIFF FINAL; LYMPH % 14.7 % (9.0-44.0); LYMPHOCYTE # 1.4 TH/MM3 (1.0-4.8); MEAN CELL VOLUME 85.4 FL (80.0-100.0); MEAN CORPUSCULAR HEMOGLOBIN 28.2 PG (27.0-34.0); MONO % 7.9 % (0.0-8.0); NEUT % 67.8 % (16.0-70.0); PLATELET COUNT 249 TH/MM3 (150-450); RED BLOOD COUNT 3.52 MIL/MM3 (4.00-5.30); WHITE BLOOD COUNT 9.2 TH/MM3 (4.0-11.0)
[2017-01-04 13:16] LABS: BICARBONATE 23.7 MEQ/L (21.0-32.0)
--- NOTE | 2017-01-04 14:13 | HHI.IDPN ---
Subjective Subjective Remarks Patient is a 61 year old female, with known MS, admitted to the hospital after her BC came back (+) and he sputum C/S with MRSA and PSAE. Patient states that she has been sick since the early part of December. She had generalized malaise, and was having some productive cough. It was initially white in color and then it became yellow. She also has had some diarrhea in the beginning which has resolved, as well as vomiting. She continues to have vomiting at least 3 times a day but since she's been taking Zofran that has improved. She's had intermittent fevers the highest has been about 101. Patient gets plasmapheresis every Friday, and she missed a treatment about 2 weeks ago. She went for her treatment on December 24, and at that time she had mentioned that she was having some coughing. She was instructed to go the emergency room , and in the ER she was afebrile. And her chest x-ray did not show any consolidation. 2 blood cultures were done at that time as well as the sputum. Prior to that visit patient has been taking Levaquin as prescribed by her primary care physician. Patient stated that she was given some cough medication and was discharge. Her blood cultures are now reported as growing staph epidermides, and her sputum with MRSA and Pseudomonas. Patient was called back in to the hospital and admitted. Since admission she has not had any fever. She is still coughing up some yellowish phlegm. She gets some dyspnea on exertion. She has occasional pain on her chest when she has a lot of coughing episodes. Her chest x-ray now is showing some basilar infiltrates. Notes reviewed Afebrile Has developed rising creatinine Frequent BM, not liquid No abdominal pain No N/V Feels same No new complaints Had fairly high grade bacteremia BC (+) 12/24, 12/28, 12/30 TTE negative UC with PSAE and Enterococcus Sputum PSAE Sputum from 12/24 PSAE and MRSA WBC normal Creatinine went up to 1.4 Antibiotics Zosyn vancomycin Lines PIV Permacath - removed Past Medical History Multiple sclerosis diagnosed in late 2012 requiring plasmapheresis weekly Fibromyalgia Bipolar disorder History of obesity Hypertension Lupus Fibromyalgia Gastroparesis Recurrent UTIs Past Surgical History chronic indwelling suprapubic cath. changed monthly 2004 the patient had C3 through C6 anterior cervical discectomy and arthrodesis for severe cervical stenosis and myelopathy 2008 the patient had again the same diagnosis but had C6-C7 anterior cervical discectomy and arthrodesis 2010 the patient had open reduction, internal fixation of a right ankle fracture Right distal fibula fracture Torn lateral meniscus last year and underwent arthroscopic surgery Laparoscopic cholecystectomy Hysterectomy Suprapubic catheter placement PermCath placement Allergies: Coded Allergies: acetaminophen (Unverified Allergy, Severe, ITCHING, 12/28/16) adhesive (Unverified Allergy, Severe, Rash, 12/28/16) albuterol (Unverified Allergy, Severe, SORES, 12/28/16) codeine (Unverified Allergy, Severe, SWELLING AND DIFFICULTY BREATHING, ) hydrocodone (Unverified Allergy, Severe, RASH AND SWELLING, 12/28/16) isradipine (Unverified Allergy, Severe, ELEVATED HEART RATE, 12/28/16) methylprednisolone (Unverified Allergy, Severe, Shortness of Breath, ) oxycodone (Unverified Allergy, Severe, ITCHING, 12/28/16) Objective . Vital Signs Date Time Temp Pulse Resp B/P (MAP) Pulse Ox O2 Delivery O2 Flow Rate FiO2 01/04/17 12:00 96.9 85 19 131/80 (97) 96 01/04/17 08:00 98.8 99 17 132/71 (91) 96 01/04/17 00:00 97.1 86 17 117/68 (84) 97 01/03/17 20:00 97.7 94 18 122/60 (80) 96 01/03/17 16:48 95 21 01/03/17 16:00 98.2 88 18 130/80 (97) 97 . Laboratory Tests Test 01/04/17 11:55 White Blood Count 9.2 TH/MM3 Red Blood Count 3.52 MIL/MM3 Hemoglobin 9.9 GM/DL Hematocrit 30.0 % Mean Corpuscular Volume 85.4 FL Mean Corpuscular Hemoglobin 28.2 PG Mean Corpuscular Hemoglobin Concent 33.0 % Red Cell Distribution Width 16.0 % Platelet Count 249 TH/MM3 Mean Platelet Volume 7.6 FL Neutrophils (%) (Auto) 67.8 % Lymphocytes (%) (Auto) 14.7 % Monocytes (%) (Auto) 7.9 % Eosinophils (%) (Auto) 8.9 % Basophils (%) (Auto) 0.7 % Neutrophils # (Auto) 6.3 TH/MM3 Lymphocytes # (Auto) 1.4 TH/MM3 Monocytes # (Auto) 0.7 TH/MM3 Eosinophils # (Auto) 0.8 TH/MM3 Basophils # (Auto) 0.1 TH/MM3 CBC Comment DIFF FINAL Differential Comment Laboratory Tests Test 01/03/17 05:02 01/04/17 11:55 Blood Urea Nitrogen 15 MG/DL 22 MG/DL Creatinine 2.83 MG/DL 4.00 MG/DL Random Glucose 97 MG/DL 104 MG/DL Calcium Level 8.9 MG/DL 9.3 MG/DL Sodium Level 144 MEQ/L 144 MEQ/L Potassium Level 3.9 MEQ/L 4.0 MEQ/L Chloride Level 110 MEQ/L 111 MEQ/L Carbon Dioxide Level 24.1 MEQ/L 23.7 MEQ/L Anion Gap 10 MEQ/L 9 MEQ/L Estimat Glomerular Filtration Rate 21 ML/MIN 14 ML/MIN Magnesium Level 2.0 MG/DL Microbiology Date/Time Source Procedure Growth Status 01/02/17 05:34 Blood Peripheral Aerobic Blood Culture - Preliminary NO GROWTH IN 2 DAYS Resulted 01/02/17 05:34 Blood Peripheral Anaerobic Blood Culture - Preliminary NO GROWTH IN 2 DAYS Resulted 01/01/17 23:20 Blood Peripheral Aerobic Blood Culture - Preliminary NO GROWTH IN 2 DAYS Resulted 01/01/17 23:20 Blood Peripheral Anaerobic Blood Culture - Preliminary NO GROWTH IN 2 DAYS Resulted Imaging Last Impressions Chest X-Ray 12/28/162045 Signed Impressions: Service Date/Time: Wednesday, December 28, 2016 21:00 - CONCLUSION: 1. Right basilar streakiness consistent with atelectasis and/or mild infiltrate. Clinical correlation is recommended. Manuel Adam MD Physical Exam GENERAL: awake and alert, NAD SKIN: Warm and dry. No generalized rash HEAD: Atraumatic. Normocephalic. No temporal wasting, or tenderness. EYES: [place] conjunctiva. No petechia or hemorrhage. No scleral icterus. No injection or drainage. EARS, NOSE AND THROAT: Nose without bleeding or purulent nasal discharge. Mucous membranes pink and moist. No oral lesions noted. NECK: Trachea midline. Supple and not tender, no meningeal signs.dry dressing over previous permacath site CARDIOVASCULAR: Regular rate and rhythm. No murmurs, rubs or gallops heard RESPIRATORY: Clear to auscultation. Breath sounds equal bilaterally. No rales , wheezing or rhonchi. Decreased BS at the bases. ABDOMEN: Soft, non-tender, nondistended. Bowel sounds present and normoactive. No guarding. No rebound. No organomegaly. : SPC in place, site ok, urine looks ok EXTREMITIES: No clubbing, cyanosis, or edema. No joint effusion. No calf tenderness. Well perfused and warm. NEUROLOGICAL: Awake and alert. Cranial nerves grossly intact. weakness in her BLE. PSYCHIATRIC: Normal affect, calm and cooperative. LINE: PIV ok. Assessment & Plan Remarks IMPRESSION PNA, patient with known MS, C/S with MRSA and PSAE - latest sputum with PSAE UTI, has SPC, C/S with PSAE and Enterococcus - repeat UA better (+) BC with Staph epi, due to CABSI, has permacath - very long bacteremia Multiple sclerosis - on plasmapheresis Known Lupus Renal insufficiency - worsening - ?due to Abx, interstitial nephritis RECOMMENDATION renal US Stop all Abx for now - she has received aout 7 days Abx for PNA - repeat CXR clear Check vanco level UA and urine for eosinophils Getting hydration Consider renal consult Mili Wynn MD Jan 04, 2017 14:13
[2017-01-04 15:34] LABS: BACTERIA, URINE OCC /hpf; BLOOD, URINE NEG (NEG); GLUCOSE,URINE NEG (NEG); KETONE, URINE NEG (NEG); MUCUS URINE FEW /lpf (OCC); NITRITE,URINE NEG (NEG); SQUAMOUS EPITHELIAL CELL URINE <1 /hpf (0-5); URINE COLOR STRAW (YELLW/STRAW)
--- NOTE | 2017-01-04 15:56 | RADRPT ---
EXAM DATE/TIME: 01/04/2017 14:08 [facility] COMPARISON: US KIDNEY/RENAL/BLADDER, December 10, 2015, 17:06. INDICATIONS : Increased BUN/Creatnine. MEDICAL HISTORY : Hypertension. Gastroesophageal reflux disease. Neck pain. Dentures. Neuropathy. Migraine. Numbness. Anticoagulant therapy. Chest pain. Dyspnea. Ulcer. Ovarian cysts. Fibromyalgia. Arthritis. Depressi on. Anxiety. Lupus. Spinal stenosis. Meningitis. SURGICAL HISTORY : Cholecystectomy. Tubal ligation. Partial hysterectomy. Right tibia surgery. Cervical fusion. ENCOUNTER: Subsequent ACUITY: 1 day PAIN SCORE: 2/10 LOCATION: Bilateral flank MEASUREMENTS: RIGHT KIDNEY: 10.5 x 4.5 x 4.5 cm LEFT KIDNEY: 11.7 x 4.0 x 5.6 cm FINDINGS: RIGHT KIDNEY: Renal cortex is normal in thickness and echotexture. No hydronephrosis, stone, or mass. LEFT KIDNEY: Renal cortex is normal in thickness and echotexture. No hydronephrosis, stone, or mass. BLADDER: Within normal limits given the degree of distension. CONCLUSION: Negative for mass or hydronephrosis. Cortex is well preserved. Fabien Sterling MD FACR on January 04, 2017 at 15:54 Board Certified Radiologist. This report was verified electronically.
[2017-01-04 16:00] VITALS: BP 125/75; PULSE 80; RESP 16; TEMP 98.1; O2SAT 97
--- NOTE | 2017-01-04 19:04 | MB ---
cc: PJ BE MD DATE OF CONSULTATION 01/04/17 REASON FOR CONSULTATION Elevated BUN and creatinine. HISTORY OF PRESENT ILLNESS This is a 61-year-old female with past medical history of fibromyalgia, bipolar disorder, hypertension, lupus, recurrent urinary tract infection and a suprapubic catheter who was admitted with cough and weakness. I was called to see the patient with elevated BUN and creatinine. The patient has history of advanced multiple sclerosis and she has been on weekly plasmapheresis. When she was admitted, she was complaining of yellow to green cough. The patient has been getting multiple antibiotics. Infectious disease has seen the patient and now has increase in the creatinine, gone up to four. Previously the patient had creatinine of 0.9 to 1.4. The patient has blood culture growing Staphylococcus epidermidis. The patient had echocardiogram done and then transesophageal echocardiogram was also done which shows mild thickening of the aortic leaflets. Ejection fraction was 60-65%. The patient has increase in the creatinine for the last three days, went up to 1.4 and 2.8 and now it is 4.0. The patient has a suprapubic catheter for some time. She was on vancomycin and the level was high yesterday and the day before yesterday. She has nausea. There is no vomiting. Her vancomycin has been stopped. There is no history of diarrhea. PAST MEDICAL HISTORY 1. Multiple sclerosis 2. Fibromyalgia 3. Bipolar disorder, 4. Hypertension, 5. Lupus, 6. Gastroparesis, 7. History of obesity, 8. Recurrent urinary tract infection PAST SURGICAL HISTORY 1. Suprapubic catheter placement, 2. Hysterectomy, 3. Laparoscopic cholecystectomy. 4. Right distal fibula fracture. REVIEW OF SYSTEMS The patient has generalized weakness, feeling tired, has nausea. There is no vomiting, has mild shortness of breath. No chest pain. No palpitation. No history of diarrhea. She currently has Mendoza catheter with clear urine coming out, has generalized body pain and still feels weak and tired. SOCIAL HISTORY The patient is . There is no history of smoking or alcoholism. FAMILY HISTORY Noncontributory. ALLERGIES ACETAMINOPHEN ADHESIVES ALBUTEROL CODEINE HYDROCODONE METHYLPREDNISOLONE OXYCODONE MEDICATIONS Currently 1. Normal saline 100 an hour. 2. Neurontin 600 mg b.i.d. 3. Plaquenil 200 mg b.i.d. 4. Mucinex 600 mg b.i.d. 5. Aspirin 325 mg daily. 6. Lasix 40 mg once a day 7. Lisinopril 20 mg daily. 8. Nifedipine 60 mg once a day. 9. Protonix 20 mg once a day. 10. Gabapentin 300 mg daily. 11. Nifedipine 30 mg q.h.s., 12. Atrovent nebulizers, 13. Mucomyst nebulizer. 14. Potassium chloride 20 mEq q. 12-hour. 15. Clonidine 0.2 mg t.i.d. 16. Zofran as needed 17. Hydromorphone as needed. PHYSICAL EXAMINATION General: The patient is awake, alert. She is not in acute distress. VITAL SIGNS: Her last blood pressure is 131/80 temperature 96.9, oxygen saturation 96%. HEENT: Pupils are mid constricted. Nonicteric sclerae, conjunctivae pale. NECK: Supple. JVD is not elevated. LUNGS: The patient has bilateral decreased air entry with occasional wheezing. HEART: S1, S2, regular rhythm. ABDOMEN: Distended, soft lax. There is suprapubic catheter placement. EXTREMITIES: Mild edema. LABORATORY DATA WBC count 9.2, hemoglobin 9.9, platelet count 249, neutrophils 67.8%, eosinophils 88.9%. Sodium 144, potassium 4.0, chloride 111, bicarb 23.7, BUN 22, creatinine 4, calcium 9.3, INR 1.0. Vanco level was 56.2 yesterday. Urinalysis is showing that there is no protein and this was done today. Urine eosinophils 2-5. The last blood culture done two days ago is showing no growth. IMAGING STUDIES The patient had chest x-ray done which shows lung berrios clear. CT scan of the head was done which was normal appearance of the brain. Ultrasound of the kidneys done shows both kidneys normal in size. No hydronephrosis. Ultrasound of the extremity done shows no deep vein thrombosis. ASSESSMENT/PLAN 1. Acute kidney injury 2. Bacteremia and sepsis 3. Hypertension 4. Pneumonia. 5. History of lupus. 6. Multiple sclerosis. 7. Fibromyalgia. The patient has acute kidney injury and there is no proteinuria at present and has eosinophils and high vanco level. Most likely the patient has acute kidney injury either because of tubular injury because of high vanco level or interstitial nephritis. At present, vancomycin has been stopped and Zosyn also has been stopped. I will also hold the furosemide and lisinopril and the potassium. Agree with gentle hydration and follow the urine output, the BUN and creatinine. Thank you for the consultation and I will follow the patient while she is in the hospital. Further recommendation will be given in due course. MD KRISSY Jimenez/ /5:27 PM /6:40 PM
[2017-01-04 20:00] VITALS: BP 109/62; PULSE 81; RESP 20; TEMP 98; O2SAT 96
[2017-01-04] MEDS: NIFEdipine 10 MG CAP PO SCH (22:59)
[2017-01-04] MEDS: HYDROmorphone HCL 4 MG TAB PO PRN (23:52)
[2017-01-05] VITALS (7 sets, daily range): BP systolic 119–136; BP diastolic 66–77; PULSE 82–89; RESP 17–20; TEMP 97–98.7; O2SAT 94–99
[2017-01-05] MEDS: RESP: ACETYLCYSTEINE 20% 30 ML NEB NEB SCH ×3 (04:00→08:23)
[2017-01-05] MEDS: SODIUM CHLOR 0.9% 1000 ML INJ 1,000 ML IV SCH ×3 (04:32→13:41)
[2017-01-05] MEDS: RESP: IPRATROPIUM 0.5 MG/2.5 ML NEB NEB SCH ×6 (04:49→19:51)
[2017-01-05 07:37] LABS: BICARBONATE 21.4 MEQ/L (21.0-32.0); POTASSIUM 3.7 MEQ/L (3.5-5.1)
[2017-01-05] MEDS: METHENAMINE HIPPURATE 1 GM PO SCH ×2 (09:00→20:52)
[2017-01-05] MEDS: NIFEdipine 60 MG SUSTAINED RELEASE TAB PO SCH (09:46)
[2017-01-05] MEDS: HYDROXYCHLOROQUINE SULFATE 200 MG TAB PO SCH ×2 (09:46→20:52)
[2017-01-05] MEDS: guaiFENesin E.R. 600 MG TAB PO SCH ×2 (09:46→20:51)
[2017-01-05] MEDS: cloNIDine HCL 0.2 MG TAB PO SCH ×3 (09:46→17:26)
[2017-01-05] MEDS: ASPIRIN 325 MG TAB PO SCH (09:47)
[2017-01-05] MEDS: GABAPENTIN 300 MG CAP PO SCH ×3 (09:47→20:52)
[2017-01-05] MEDS: PANTOPRAZOLE SOD 20 MG DELAYED RELEASE TAB PO SCH (09:47)
--- NOTE | 2017-01-05 10:58 | HHI.IDPN ---
Subjective Subjective Remarks Patient is a 61 year old female, with known MS, admitted to the hospital after her BC came back (+) and he sputum C/S with MRSA and PSAE. Patient states that she has been sick since the early part of December. She had generalized malaise, and was having some productive cough. It was initially white in color and then it became yellow. She also has had some diarrhea in the beginning which has resolved, as well as vomiting. She continues to have vomiting at least 3 times a day but since she's been taking Zofran that has improved. She's had intermittent fevers the highest has been about 101. Patient gets plasmapheresis every Friday, and she missed a treatment about 2 weeks ago. She went for her treatment on December 24, and at that time she had mentioned that she was having some coughing. She was instructed to go the emergency room , and in the ER she was afebrile. And her chest x-ray did not show any consolidation. 2 blood cultures were done at that time as well as the sputum. Prior to that visit patient has been taking Levaquin as prescribed by her primary care physician. Patient stated that she was given some cough medication and was discharge. Her blood cultures are now reported as growing staph epidermides, and her sputum with MRSA and Pseudomonas. Patient was called back in to the hospital and admitted. Since admission she has not had any fever. She is still coughing up some yellowish phlegm. She gets some dyspnea on exertion. She has occasional pain on her chest when she has a lot of coughing episodes. Her chest x-ray now is showing some basilar infiltrates. Notes reviewed Renal notes reviewed Afebrile Good UO, but creatinine slightly higher Renal US no obstruction Urine for eos (+) Frequent BM, not liquid No abdominal pain No N/V No new complaints Had fairly high grade bacteremia BC (+) 12/24, 12/28, 12/30 TTE negative UC with PSAE and Enterococcus Sputum PSAE Sputum from 12/24 PSAE and MRSA WBC normal Creatinine went up to 1.4 Antibiotics Zosyn vancomycin Lines PIV Permacath - removed Past Medical History Multiple sclerosis diagnosed in late 2012 requiring plasmapheresis weekly Fibromyalgia Bipolar disorder History of obesity Hypertension Lupus Fibromyalgia Gastroparesis Recurrent UTIs Past Surgical History chronic indwelling suprapubic cath. changed monthly 2004 the patient had C3 through C6 anterior cervical discectomy and arthrodesis for severe cervical stenosis and myelopathy 2008 the patient had again the same diagnosis but had C6-C7 anterior cervical discectomy and arthrodesis 2010 the patient had open reduction, internal fixation of a right ankle fracture Right distal fibula fracture Torn lateral meniscus last year and underwent arthroscopic surgery Laparoscopic cholecystectomy Hysterectomy Suprapubic catheter placement PermCath placement Allergies: Coded Allergies: acetaminophen (Unverified Allergy, Severe, ITCHING, 12/28/16) adhesive (Unverified Allergy, Severe, Rash, 12/28/16) albuterol (Unverified Allergy, Severe, SORES, 12/28/16) codeine (Unverified Allergy, Severe, SWELLING AND DIFFICULTY BREATHING, ) hydrocodone (Unverified Allergy, Severe, RASH AND SWELLING, 12/28/16) isradipine (Unverified Allergy, Severe, ELEVATED HEART RATE, 12/28/16) methylprednisolone (Unverified Allergy, Severe, Shortness of Breath, ) oxycodone (Unverified Allergy, Severe, ITCHING, 12/28/16) Objective . Vital Signs Date Time Temp Pulse Resp B/P (MAP) Pulse Ox O2 Delivery O2 Flow Rate FiO2 01/05/17 08:23 95 21 01/05/17 08:00 97.0 84 18 136/77 (96) 94 01/05/17 04:49 99 01/05/17 00:00 98.1 89 20 132/66 (88) 95 01/04/17 20:00 98.0 81 20 109/62 (78) 96 01/04/17 16:00 98.1 80 16 125/75 (92) 97 01/04/17 12:00 96.9 85 19 131/80 (97) 96 . Laboratory Tests Test 01/04/17 11:55 White Blood Count 9.2 TH/MM3 Red Blood Count 3.52 MIL/MM3 Hemoglobin 9.9 GM/DL Hematocrit 30.0 % Mean Corpuscular Volume 85.4 FL Mean Corpuscular Hemoglobin 28.2 PG Mean Corpuscular Hemoglobin Concent 33.0 % Red Cell Distribution Width 16.0 % Platelet Count 249 TH/MM3 Mean Platelet Volume 7.6 FL Neutrophils (%) (Auto) 67.8 % Lymphocytes (%) (Auto) 14.7 % Monocytes (%) (Auto) 7.9 % Eosinophils (%) (Auto) 8.9 % Basophils (%) (Auto) 0.7 % Neutrophils # (Auto) 6.3 TH/MM3 Lymphocytes # (Auto) 1.4 TH/MM3 Monocytes # (Auto) 0.7 TH/MM3 Eosinophils # (Auto) 0.8 TH/MM3 Basophils # (Auto) 0.1 TH/MM3 CBC Comment DIFF FINAL Differential Comment Laboratory Tests Test 01/04/17 11:55 01/05/17 07:00 Blood Urea Nitrogen 22 MG/DL 27 MG/DL Creatinine 4.00 MG/DL 4.20 MG/DL Random Glucose 104 MG/DL 109 MG/DL Calcium Level 9.3 MG/DL 9.0 MG/DL Magnesium Level 2.0 MG/DL Sodium Level 144 MEQ/L 142 MEQ/L Potassium Level 4.0 MEQ/L 3.7 MEQ/L Chloride Level 111 MEQ/L 110 MEQ/L Carbon Dioxide Level 23.7 MEQ/L 21.4 MEQ/L Anion Gap 9 MEQ/L 11 MEQ/L Estimat Glomerular Filtration Rate 14 ML/MIN 13 ML/MIN Imaging Last Impressions Chest X-Ray 12/28/162045 Signed Impressions: Service Date/Time: Friday, December 28, 2016 21:00 - CONCLUSION: 1. Right basilar streakiness consistent with atelectasis and/or mild infiltrate. Clinical correlation is recommended. Manuel Adam MD Physical Exam GENERAL: awake and alert, NAD SKIN: Warm and dry. No generalized rash HEAD: Atraumatic. Normocephalic. No temporal wasting, or tenderness. EYES: [place] conjunctiva. No petechia or hemorrhage. No scleral icterus. No injection or drainage. EARS, NOSE AND THROAT: Nose without bleeding or purulent nasal discharge. Mucous membranes pink and moist. No oral lesions noted. NECK: Trachea midline. Supple and not tender, no meningeal signs.dry dressing over previous permacath site CARDIOVASCULAR: Regular rate and rhythm. No murmurs, rubs or gallops heard RESPIRATORY: Clear to auscultation. Breath sounds equal bilaterally. No rales , wheezing or rhonchi. Decreased BS at the bases. ABDOMEN: Soft, non-tender, nondistended. Bowel sounds present and normoactive. No guarding. No rebound. No organomegaly. : SPC in place, site ok, urine looks ok EXTREMITIES: No clubbing, cyanosis, or edema. No joint effusion. No calf tenderness. Well perfused and warm. NEUROLOGICAL: Awake and alert. Cranial nerves grossly intact. weakness in her BLE. PSYCHIATRIC: Normal affect, calm and cooperative. LINE: PIV ok. Assessment & Plan Remarks IMPRESSION PNA, patient with known MS, C/S with MRSA and PSAE - latest sputum with PSAE - better; last CXR clear UTI, has SPC, C/S with PSAE and Enterococcus - repeat UA better (+) BC with Staph epi, due to CABSI, has permacath - very long bacteremia Multiple sclerosis - on plasmapheresis Known Lupus Renal insufficiency - worsening - ?due to Abx, interstitial nephritis RECOMMENDATION Follow creatinine Continue to hold Abx - she has received adequate Abx for her PNA (MRSA and PSAE) - will need Rx for S taph epi line related high grade bacteremia Check vanco level - once level at least 15, I will start Cubicin Getting hydration Renal following Mili Wynn MD Jan 05, 2017 10:57
--- NOTE | 2017-01-05 11:52 | HHI.NPPN ---
Subjective History of Present Illness 61-year-old female with past medical history of fibromyalgia, bipolar disorder, hypertension, lupus, recurrent urinary tract infection and a suprapubic catheter who was admitted with cough and weakness. I was called to see the patient with elevated BUN and creatinine. The patient has history of advanced multiple sclerosis and she has been on weekly plasmapheresis. Additional Remarks Patient is alert, has pain in legs, chronic, no SOB. Review of Systems General Constitutional: Fatigue Respiratory Lungs: SOB, Cough, Sputum, Wheeze Cardiovascular Cardiac: Edema, BLACK Objective Data Data Vital Signs Date Time Temp Pulse Resp B/P (MAP) Pulse Ox O2 Delivery O2 Flow Rate FiO2 01/05/17 08:23 95 21 01/05/17 08:00 97.0 84 18 136/77 (96) 94 01/05/17 04:49 99 01/05/17 00:00 98.1 89 20 132/66 (88) 95 01/04/17 20:00 98.0 81 20 109/62 (78) 96 01/04/17 16:00 98.1 80 16 125/75 (92) 97 01/04/17 12:00 96.9 85 19 131/80 (97) 96 -: 01/04/17 1155 01/05/17 0700 Physical Exam General Appearance: No Acute Distress, Comfortable Eyes Eye Exam: Pupils Equal Neck Neck Exam: Neck Supple Pulmonary Resp Exam: Crackles, Rhonchi, Sputum, Decreased Bases, Diminished Breath Sounds Cardiology CV Exam: Regular, Normal Sinus Rhythm Gastrointestinal/Abdomen GI Exam: Soft, Non-Tender, Bowel Sounds Present, Distended Extremeties Extremities Exam: Trace Edema Neurologic Neuro Exam: Alert, Awake, Oriented Psychiatric Psych Exam: Appropriate Responses Assessment/Plan Assessment Summary: THONG/Acute Renal Failure Problem List: (1) Essential hypertension ICD Codes: I10 - Essential (primary) hypertension Status: Chronic (2) GERD (gastroesophageal reflux disease) ICD Codes: K21.9 - Gastroesophageal reflux disease Status: Chronic (3) Generalized weakness ICD Codes: R53.1 - Weakness Status: Acute (4) Suprapubic catheter dysfunction ICD Codes: T83.010A - Breakdown (mechanical) of cystostomy catheter, initial encounter Status: Acute (5) Fibromyalgia ICD Codes: M79.7 - Fibromyalgia Status: Chronic (6) Lupus (systemic lupus erythematosus) ICD Codes: M32.9 - Systemic lupus erythematosus, unspecified Status: Chronic (7) THONG (acute kidney injury) ICD Codes: N17.9 - Acute kidney failure, unspecified Plan Still has no proteinuria, Creatinine increase to 4.2. Urine out put is much better. BP is stable. Has urine Eosinophils and high Vanco. level. THONG is either due to possible interstitial Nephritis or Tubular damage due to high Vanco level. Continue IVF, avoid Nephrotoxins. Follow the urine out put and BMP. Ivet Foote MD Jan 05, 2017 11:52
--- NOTE | 2017-01-05 12:46 | HHI.PR ---
Subjective Remarks Patient reports feeling better today than yesterday- less fatigued Patient voices concerns regarding her renal function- discussed with patient and brother at bedside Objective Vitals Vital Signs Date Time Temp Pulse Resp B/P (MAP) Pulse Ox O2 Delivery O2 Flow Rate FiO2 01/05/17 12:00 98.3 82 17 127/69 (88) 96 01/05/17 08:23 95 21 01/05/17 08:00 97.0 84 18 136/77 (96) 94 01/05/17 04:49 99 01/05/17 00:00 98.1 89 20 132/66 (88) 95 01/04/17 20:00 98.0 81 20 109/62 (78) 96 01/04/17 16:00 98.1 80 16 125/75 (92) 97 Result Diagram: 01/04/17 1155 01/05/17 0700 Other Results Laboratory Tests Test 01/03/17 05:02 01/04/17 11:55 01/04/17 14:20 01/05/17 07:00 Blood Urea Nitrogen 15 MG/DL 22 MG/DL 27 MG/DL Creatinine 2.83 MG/DL 4.00 MG/DL 4.20 MG/DL Random Glucose 97 MG/DL 104 MG/DL 109 MG/DL Calcium Level 8.9 MG/DL 9.3 MG/DL 9.0 MG/DL Sodium Level 144 MEQ/L 144 MEQ/L 142 MEQ/L Potassium Level 3.9 MEQ/L 4.0 MEQ/L 3.7 MEQ/L Chloride Level 110 MEQ/L 111 MEQ/L 110 MEQ/L Carbon Dioxide Level 24.1 MEQ/L 23.7 MEQ/L 21.4 MEQ/L Anion Gap 10 MEQ/L 9 MEQ/L 11 MEQ/L Estimat Glomerular Filtration Rate 21 ML/MIN 14 ML/MIN 13 ML/MIN Random Vancomycin Level 56.2 COMMENT 35.9 COMMENT White Blood Count 9.2 TH/MM3 Red Blood Count 3.52 MIL/MM3 Hemoglobin 9.9 GM/DL Hematocrit 30.0 % Mean Corpuscular Volume 85.4 FL Mean Corpuscular Hemoglobin 28.2 PG Mean Corpuscular Hemoglobin Concent 33.0 % Red Cell Distribution Width 16.0 % Platelet Count 249 TH/MM3 Mean Platelet Volume 7.6 FL Neutrophils (%) (Auto) 67.8 % Lymphocytes (%) (Auto) 14.7 % Monocytes (%) (Auto) 7.9 % Eosinophils (%) (Auto) 8.9 % Basophils (%) (Auto) 0.7 % Neutrophils # (Auto) 6.3 TH/MM3 Lymphocytes # (Auto) 1.4 TH/MM3 Monocytes # (Auto) 0.7 TH/MM3 Eosinophils # (Auto) 0.8 TH/MM3 Basophils # (Auto) 0.1 TH/MM3 CBC Comment DIFF FINAL Differential Comment Magnesium Level 2.0 MG/DL Urine Color STRAW Urine Turbidity CLEAR Urine pH 5.0 Urine Specific [place] 1.009 Urine Protein NEG mg/dL Urine Glucose (UA) NEG mg/dL Urine Ketones NEG mg/dL Urine Occult Blood NEG Urine Nitrite NEG Urine Bilirubin NEG Urine Urobilinogen LESS THAN 2.0 MG/DL Urine Leukocyte Esterase NEG Urine RBC 3 /hpf Urine WBC 6 /hpf Urine Squamous Epithelial Cells <1 /hpf Urine Bacteria OCC /hpf Urine Mucus FEW /lpf Urine Eosinophils 2-5 /HPF Imaging Last Impressions Central Venous Line 12/31/16 0000 Signed Impressions: Service Date/Time: Saturday, December 31, 2016 00:00 - CONCLUSION: Uncomplicated Permcath removal. Marky Cid MD Chest X-Ray [id number]/28/[id number] Signed Impressions: Service Date/Time: Wednesday, December 28, 2016 21:00 - CONCLUSION: 1. Right basilar streakiness consistent with atelectasis and/or mild infiltrate. Clinical correlation is recommended. Manuel Adam MD Objective Remarks GENERAL: This is a well-nourished, well-developed patient, in no apparent distress. CARDIOVASCULAR: Regular rate and rhythm without murmurs, gallops, or rubs. RESPIRATORY: Clear to auscultation. Breath sounds equal bilaterally. No wheezes , rales, or rhonchi. GASTROINTESTINAL: Abdomen soft, non-tender, nondistended. Normal active bowel sounds GENITOURINARY: suprapubic catheter in place MUSCULOSKELETAL: Extremities without clubbing, cyanosis, or edema. NEURO: Alert & Oriented x4 to person, place, time, situation. Moves all ext x4 A/P Problem List: (1) Bronchopneumonia ICD Codes: J18.0 - Bronchopneumonia, unspecified organism Plan: - cmgmt with ID - Pt is 61 yo woman with advance multiple sclerosis. She has been receiving weekly plasmapheresis on Friday - She presented to the ED with complaints of productive cough that began around 2 - 3 weeks ago. Received around 11 days Levaquin initially but no improvement. - Pt was seen in ED and had sputum and blood cx on 12/24 and was diagnosed with bronchitis then discharged. - Pt was called back to ED 12/28 for positive sputum MRSA/pseudomonas and blood cx staph epi 2/ - Pt says her hands were also getting weak and MS starting to flare. She has also missed her last 2 treatments. - SPC was last changed around 12/19 per the pt. It is changed monthly per the pt. - blood Cx (12/30/16) - Staph Epi 3/ bottles - urine cx (12/28) --> pseudomonas, enterococcus - sputum cx (12/29) --> pseudomonas - blood cx (12/30) from permcath - staph epi - PermCath removed (12/31/16) d/t infection. tip cx --> less than 15 CFU - repeat blood cx (01/01/17) --> NGTD - repeat Blood Cx (01/02/17) --> NGTD - Echocardiogram (12/31/16) --> no vegetations noted, EF 55-60% - SHADY (01/03/17) --> NO vegetation - hold off on placing new PermCath until bacteremia resolved - so no plasmapheresis at this time - In the ED pt was given Primaxin as best ALEJANDRINA. - Vanco (12/29 - 12/31) - Zosyn and (12/29 - present) - Cont scheduled duonebs. and mucomyst - 01/04/17 repeat CXR- no acute disease - PT and OT - supportive care - DVT prophylaxis (2) Multiple sclerosis ICD Codes: G35 - Multiple sclerosis Status: Chronic Plan: - Pt has missed her last two plasmapheresis sessions prior to admission - Pt reports weakness in the UE - see above (3) Chronic indwelling Mendoza catheter ICD Codes: Z92.89 - Personal history of other medical treatment Status: Chronic Plan: - SPC last changed on 12/19 (4) Essential hypertension ICD Codes: I10 - Essential (primary) hypertension Status: Chronic Plan: Controlled continue Clonidine 0.2 mg Q6H PRN SBP >160, Lisinopril 20mg daily, Nifedipine 60 mg PO daily, Nifedipine 30 mg PO QHS monitor BP trend (5) Fibromyalgia ICD Codes: M79.7 - Fibromyalgia Status: Chronic (6) Lupus (systemic lupus erythematosus) ICD Codes: M32.9 - Systemic lupus erythematosus, unspecified Status: Chronic (7) THONG (acute kidney injury) ICD Codes: N17.9 - Acute kidney failure, unspecified Plan: creatinine trending upward 0.96 -> 1.46 -> 2.83 ->4.00 -> 4.20 Vancomycin and Zosyn DC'd 01/04/17 repeat BMP in AM continue NS at 100ml/H urine output over the past 24 hours 4400 ml discussed with Nephrology- Has urine Eosinophils and high Vanco. level. THONG is either due to possible interstitial Nephritis or Tubular damage due to high Vanco level. Continue IVF, avoid Nephrotoxins. Follow the urine out put and BMP (8) Altered mental status ICD Codes: R41.82 - Altered mental status, unspecified Plan: improving CT head ordered and reviewed no acute finding see THONG above (9) Diarrhea ICD Codes: R19.7 - Diarrhea, unspecified Plan: 2 soft BMs today stool studies ordered and pending Assessment and Plan Patient examined. Assessment and plan formulated with Autumn Maldonado PA-C. I agree with the above. Case d/w Nephrology, Dr. Foote, 01/05/17 continue IVFs for now repeat BMP in AM consider steroids if renal fxn continues to worsen Autumn Maldonado Jan 05, 2017 12:46 Jan Stevens DO Jan 05, 2017 23:49
[2017-01-05] MEDS: NIFEdipine 10 MG CAP PO SCH (20:51)
[2017-01-06] VITALS (7 sets, daily range): BP systolic 133–153; BP diastolic 73–79; PULSE 81–96; RESP 14–20; TEMP 96.7–99.2; O2SAT 95–98
[2017-01-06] MEDS: RESP: IPRATROPIUM 0.5 MG/2.5 ML NEB NEB SCH ×6 (03:39→21:38)
[2017-01-06 05:28] LABS: POTASSIUM 3.6 MEQ/L (3.5-5.1)
[2017-01-06 07:05] LABS: C. DIFF EPI 027 PRESUMPTIVE NEGATIVE (NEGATIVE)
[2017-01-06] MEDS: METHENAMINE HIPPURATE 1 GM PO SCH ×2 (09:00→21:00)
[2017-01-06] MEDS: SODIUM CHLOR 0.9% 1000 ML INJ 1,000 ML IV SCH ×2 (09:37→23:15)
[2017-01-06] MEDS: guaiFENesin E.R. 600 MG TAB PO SCH ×2 (09:38→21:05)
[2017-01-06] MEDS: ASPIRIN 325 MG TAB PO SCH (09:39)
[2017-01-06] MEDS: GABAPENTIN 300 MG CAP PO SCH ×3 (09:39→21:05)
[2017-01-06] MEDS: cloNIDine HCL 0.2 MG TAB PO SCH ×2 (09:39→15:12)
[2017-01-06] MEDS: NIFEdipine 60 MG SUSTAINED RELEASE TAB PO SCH (09:39)
[2017-01-06] MEDS: PANTOPRAZOLE SOD 20 MG DELAYED RELEASE TAB PO SCH (09:39)
[2017-01-06] MEDS: HYDROXYCHLOROQUINE SULFATE 200 MG TAB PO SCH ×2 (09:39→21:05)
--- NOTE | 2017-01-06 10:22 | HHI.PR ---
Subjective Remarks Patient A&O x3 appears more awake and less fatigued today patient reports bilateral hands have mild paresthesia and c/o having difficulty gripping small items Objective Vitals Vital Signs Date Time Temp Pulse Resp B/P (MAP) Pulse Ox O2 Delivery O2 Flow Rate FiO2 01/06/17 08:47 97 01/06/17 08:00 96.7 95 16 153/75 (101) 98 01/06/17 00:00 99.2 96 20 144/73 (96) 95 01/05/17 20:00 98.7 83 20 132/70 (90) 95 01/05/17 16:00 97.9 82 18 119/68 (85) 97 01/05/17 12:00 98.3 82 17 127/69 (88) 96 Result Diagram: 01/04/17 1155 01/06/17 0356 Other Results Laboratory Tests Test 01/04/17 11:55 01/04/17 14:20 01/05/17 07:00 01/06/17 03:56 White Blood Count 9.2 TH/MM3 Red Blood Count 3.52 MIL/MM3 Hemoglobin 9.9 GM/DL Hematocrit 30.0 % Mean Corpuscular Volume 85.4 FL Mean Corpuscular Hemoglobin 28.2 PG Mean Corpuscular Hemoglobin Concent 33.0 % Red Cell Distribution Width 16.0 % Platelet Count 249 TH/MM3 Mean Platelet Volume 7.6 FL Neutrophils (%) (Auto) 67.8 % Lymphocytes (%) (Auto) 14.7 % Monocytes (%) (Auto) 7.9 % Eosinophils (%) (Auto) 8.9 % Basophils (%) (Auto) 0.7 % Neutrophils # (Auto) 6.3 TH/MM3 Lymphocytes # (Auto) 1.4 TH/MM3 Monocytes # (Auto) 0.7 TH/MM3 Eosinophils # (Auto) 0.8 TH/MM3 Basophils # (Auto) 0.1 TH/MM3 CBC Comment DIFF FINAL Differential Comment Blood Urea Nitrogen 22 MG/DL 27 MG/DL 28 MG/DL Creatinine 4.00 MG/DL 4.20 MG/DL 4.02 MG/DL Random Glucose 104 MG/DL 109 MG/DL 107 MG/DL Calcium Level 9.3 MG/DL 9.0 MG/DL 9.2 MG/DL Magnesium Level 2.0 MG/DL Sodium Level 144 MEQ/L 142 MEQ/L 144 MEQ/L Potassium Level 4.0 MEQ/L 3.7 MEQ/L 3.6 MEQ/L Chloride Level 111 MEQ/L 110 MEQ/L 112 MEQ/L Carbon Dioxide Level 23.7 MEQ/L 21.4 MEQ/L 22.0 MEQ/L Anion Gap 9 MEQ/L 11 MEQ/L 10 MEQ/L Estimat Glomerular Filtration Rate 14 ML/MIN 13 ML/MIN 14 ML/MIN Urine Color STRAW Urine Turbidity CLEAR Urine pH 5.0 Urine Specific [place] 1.009 Urine Protein NEG mg/dL Urine Glucose (UA) NEG mg/dL Urine Ketones NEG mg/dL Urine Occult Blood NEG Urine Nitrite NEG Urine Bilirubin NEG Urine Urobilinogen LESS THAN 2.0 MG/DL Urine Leukocyte Esterase NEG Urine RBC 3 /hpf Urine WBC 6 /hpf Urine Squamous Epithelial Cells <1 /hpf Urine Bacteria OCC /hpf Urine Mucus FEW /lpf Urine Eosinophils 2-5 /HPF Random Vancomycin Level 35.9 COMMENT 30.6 COMMENT Test 01/06/17 05:20 Eosinophil Stool Smear NONE SEEN /HPF Stool C. difficile Toxin (PCR) NEGATIVE Stl C. difficile Toxin Epiderm 027 PRESUMPTIVE NEGATIVE Imaging Last Impressions Central Venous Line 12/31/16 0000 Signed Impressions: Service Date/Time: Saturday, December 31, 2016 00:00 - CONCLUSION: Uncomplicated Permcath removal. Marky Cid MD Chest X-Ray 12/28/162045 Signed Impressions: Service Date/Time: Wednesday, December 28, 2016 21:00 - CONCLUSION: 1. Right basilar streakiness consistent with atelectasis and/or mild infiltrate. Clinical correlation is recommended. Manuel Adam MD Objective Remarks GENERAL: This is an obese, well-developed patient, in no apparent distress. CARDIOVASCULAR: Regular rate and rhythm without murmurs, gallops, or rubs. RESPIRATORY: Clear to auscultation. Breath sounds equal bilaterally. No wheezes , rales, or rhonchi. GASTROINTESTINAL: Abdomen soft, non-tender, nondistended. Normal active bowel sounds GENITOURINARY: suprapubic catheter in place MUSCULOSKELETAL: Extremities without clubbing, cyanosis, or edema. NEURO: Alert & Oriented x4 to person, place, time, situation. Moves all ext x4 A/P Problem List: (1) Bronchopneumonia ICD Codes: J18.0 - Bronchopneumonia, unspecified organism Plan: - cmgmt with ID - Pt is 61 yo woman with advance multiple sclerosis. She has been receiving weekly plasmapheresis on Friday - She presented to the ED with complaints of productive cough that began around 2 - 3 weeks ago. Received around 11 days Levaquin initially but no improvement. - Pt was seen in ED and had sputum and blood cx on 12/24 and was diagnosed with bronchitis then discharged. - Pt was called back to ED 12/28 for positive sputum MRSA/pseudomonas and blood cx staph epi 2/4 - Pt says her hands were also getting weak and MS starting to flare. She has also missed her last 2 treatments. - SPC was last changed around 12/19 per the pt. It is changed monthly per the pt. - blood Cx (12/30/16) - Staph Epi 3/4 bottles - urine cx (12/28) --> pseudomonas, enterococcus - sputum cx (12/29) --> pseudomonas - blood cx (12/30) from permcath - staph epi - PermCath removed (12/31/16) d/t infection. tip cx --> less than 15 CFU - repeat blood cx (01/01/17) --> NGTD - repeat Blood Cx (01/02/17) --> NGTD - Echocardiogram (12/31/16) --> no vegetations noted, EF 55-60% - SHADY (01/03/17) --> NO vegetation - hold off on placing new PermCath until bacteremia resolved - so no plasmapheresis at this time - In the ED pt was given Primaxin as best ALEJANDRINA. - Vanco (12/29 - 01/04) - Zosyn and (12/29 - 01/04) - Cont scheduled duonebs. and mucomyst - 01/04/17 repeat CXR- no acute disease - PT and OT - supportive care - DVT prophylaxis - discussed with ID - vanco levesl continue to be elevated - continue to monitor Vanco levels - once vanco levels 15-20 ID plans to start Cubicin to treat Staph Epi in blood (2) Multiple sclerosis ICD Codes: G35 - Multiple sclerosis Status: Chronic Plan: - Pt has missed her last two plasmapheresis sessions prior to admission - Pt reports weakness in the UE - see above (3) Chronic indwelling Mendoza catheter ICD Codes: Z92.89 - Personal history of other medical treatment Status: Chronic Plan: - SPC last changed on 12/19 (4) Essential hypertension ICD Codes: I10 - Essential (primary) hypertension Status: Chronic Plan: Controlled continue Clonidine 0.2 mg Q6H PRN SBP >160, Lisinopril 20mg daily, Nifedipine 60 mg PO daily, Nifedipine 30 mg PO QHS monitor BP trend (5) Fibromyalgia ICD Codes: M79.7 - Fibromyalgia Status: Chronic (6) Lupus (systemic lupus erythematosus) ICD Codes: M32.9 - Systemic lupus erythematosus, unspecified Status: Chronic (7) THONG (acute kidney injury) ICD Codes: N17.9 - Acute kidney failure, unspecified Plan: creatinine trending upward 0.96 -> 1.46 -> 2.83 ->4.00 -> 4.20 -> 4.02 Vancomycin and Zosyn DC'd 01/04/17 repeat BMP in AM continue NS at 100ml/H urine output over the past 24 hours 3000 ml also followed by Nephrology- Has urine Eosinophils and high Vanco. level. THONG is either due to possible interstitial Nephritis or Tubular damage due to high Vanco level. Continue IVF, avoid Nephrotoxins. Follow the urine out put and BMP (8) Altered mental status ICD Codes: R41.82 - Altered mental status, unspecified Plan: improving CT head ordered and reviewed no acute finding see THONG above (9) Diarrhea ICD Codes: R19.7 - Diarrhea, unspecified Plan: 2 soft BMs today stool studies ordered and pending Assessment and Plan Patient examined. Assessment and plan formulated with fern keller PA-C. I agree with the above. Line sepsis. Nosocomial pna THONG due to AIN MS currently off plasmapheresis monitor cr for improvement. currently getting better so no steroid initiated. When vanco level below 20 then plan to start daptomycin. Will ultimately get a new line once the bacteremia is sufficiently treated. Autumn Keller Jan 06, 2017 10:22 Alex Morales MD Jan 06, 2017 14:12
--- NOTE | 2017-01-06 11:39 | PD.ONC.PN ---
Subjective Subjective Remarks "I hope I get rid of this infection." Strength is holding out. Able to eat. c/o diarrhea Objective Data Date Time Temp Pulse Resp B/P (MAP) Pulse Ox O2 Delivery O2 Flow Rate FiO2 01/06/17 08:47 97 01/06/17 08:00 96.7 95 16 153/75 (101) 98 01/06/17 00:00 99.2 96 20 144/73 (96) 95 01/05/17 20:00 98.7 83 20 132/70 (90) 95 01/05/17 16:00 97.9 82 18 119/68 (85) 97 01/05/17 12:00 98.3 82 17 127/69 (88) 96 01/06/17 01/06/17 01/06/17 07:00 15:00 23:00 Intake Total 240 ml Output Total 1900 ml Balance -1660 ml Result Diagram: 01/04/17 1155 01/06/17 0356 Laboratory Results Laboratory Tests Test 01/06/17 03:56 01/06/17 05:20 Blood Urea Nitrogen 28 MG/DL Creatinine 4.02 MG/DL Random Glucose 107 MG/DL Calcium Level 9.2 MG/DL Sodium Level 144 MEQ/L Potassium Level 3.6 MEQ/L Chloride Level 112 MEQ/L Carbon Dioxide Level 22.0 MEQ/L Anion Gap 10 MEQ/L Estimat Glomerular Filtration Rate 14 ML/MIN Random Vancomycin Level 30.6 COMMENT Eosinophil Stool Smear NONE SEEN /HPF Stool C. difficile Toxin (PCR) NEGATIVE Stl C. difficile Toxin Epiderm 027 PRESUMPTIVE NEGATIVE Culture Results Microbiology Date/Time Source Procedure Growth Status 01/06/17 05:20 Stool Stool Cryptosporidium Exam Pending Resulted 01/06/17 05:20 Stool Stool Stool Pus (ALEJANDRINA) - Final NO WBC'S SEEN Resulted 01/06/17 05:20 Stool Stool Giardia Antigen (ALEJANDRINA) Pending Resulted 01/06/17 05:20 Stool Stool Stool Occult Blood (ALEJANDRINA) - Final HEMOCCULT POSITIVE Resulted 01/06/17 05:20 Stool Stool Gram Stain - Final Complete Administered Medications Medications (Trade) Dose Ordered Sig/Sury Route PRN Reason Start Time Stop Time Status Last Admin Dose Admin Ondansetron HCl (Zofran Inj) 4 mg Q6H PRN IV NAUSEA OR VOMITING 12/29/16 07:15 01/04/17 09:55 Aspirin (Aspirin) 325 mg DAILY PO 12/30/16 09:00 01/06/17 09:39 Clonidine (Catapres) 0.2 mg TID PO 12/29/16 18:00 01/06/17 09:39 Gabapentin (Neurontin) 300 mg DAILY@1300 PO 12/30/16 13:00 01/05/17 13:41 Gabapentin (Neurontin) 600 mg BID PO 12/29/16 21:00 01/06/17 09:39 Hydromorphone HCl (Dilaudid) 4 mg Q8H PRN PO PAIN over 4 12/29/16 14:15 01/04/17 23:52 Hydroxychloroquine Sulfate (Plaquenil) 200 mg BID PO 12/29/16 21:00 01/06/17 09:39 Nifedipine (Procardia) 30 mg HS PO 12/29/16 21:00 01/05/17 20:51 Nifedipine (Procardia Xl) 60 mg DAILY PO 12/30/16 09:00 01/06/17 09:39 Pantoprazole Sodium (Protonix) 20 mg DAILY PO 12/30/16 09:00 01/06/17 09:39 Patient Own Medication PT OWN MED: METHENAM... BID PO 12/29/16 21:00 Future hold 01/06/17 09:00 Ipratropium [place] (Atrovent Neb) 0.5 mg Q4HR NEB NEB 12/29/16 16:00 01/05/17 19:51 Guaifenesin (Mucinex Er) 600 mg BID PO 12/29/16 21:00 01/06/17 09:38 Sodium Chloride 1,000 ml @ 100 mls/hr Q10H IV 01/04/17 11:15 01/06/17 09:37 Objective Remarks GENERAL: Older female, supine in bed getting therapy from PT SKIN: Warm and dry. HEAD: Normocephalic. EYES: No injection or drainage. NECK: Supple, trachea midline. CARDIOVASCULAR: Regular rate and rhythm without murmurs. RESPIRATORY: Breath sounds equal bilaterally. No accessory muscle use. GASTROINTESTINAL: Abdomen soft, non-tender, nondistended. EXTREMITIES: No cyanosis, or edema. MUSCULOSKELETAL: Adequate muscle tone. NEUROLOGICAL: Moving all extremities. Normal speech. Alert and oriented. Assessment/Plan Problem List: (1) Multiple sclerosis exacerbation ICD Codes: G35 - Multiple sclerosis Status: Chronic Plan: 01/06/17. MS no need for pheresis for now. Events over the weekend noted. Previously on Aubagio, last on Rebif -- On Aubagio per neurology -- This is supplemented with plasma exchange on a weekly, outpatient basis. -- This is likely an acute exacerbation of MS d/t bacteremia. -- Hold off on plasma exchange until bacteremia is cleared. (2) Sepsis ICD Codes: A41.9 - Sepsis, unspecified organism Plan: 01/06/17. Cultures from pheresis catheter show same Staph Epi. Abx tx complicated by nephritis/increased creatinine. Change abx per ID. -- She was seen in the ER on 12/24/16 and was diagnosed with bronchitis -- Blood cultures were found to be positive and the pt was called back for IV Abx -- Blood cultures were taken from Permacath on 12/31 and were found to be growing gram + cocci in pairs/clusters. -- Permacath tip culture pending Assessment y/o female admitted for IV antibiotics after her blood cultures grew out from previous ER visit. Plan 1. Nephrotoxicity from Vancomycin 2. New IV antibiotics per infectious disease. 3. Continue physical therapy while inpatient. 4. New blood cultures drawn since permacath removed - neg. 5. Continue to hold off on new permacath placement - discussed w/ ID Beatriz Trevino MD Jan 06, 2017 11:39
--- NOTE | 2017-01-06 12:00 | HHI.IDPN ---
Subjective Subjective Remarks Patient is a 61 year old female, with known MS, admitted to the hospital after her BC came back (+) and he sputum C/S with MRSA and PSAE. Patient states that she has been sick since the early part of December. She had generalized malaise, and was having some productive cough. It was initially white in color and then it became yellow. She also has had some diarrhea in the beginning which has resolved, as well as vomiting. She continues to have vomiting at least 3 times a day but since she's been taking Zofran that has improved. She's had intermittent fevers the highest has been about 101. Patient gets plasmapheresis every Friday, and she missed a treatment about 2 weeks ago. She went for her treatment on December 24, and at that time she had mentioned that she was having some coughing. She was instructed to go the emergency room , and in the ER she was afebrile. And her chest x-ray did not show any consolidation. 2 blood cultures were done at that time as well as the sputum. Prior to that visit patient has been taking Levaquin as prescribed by her primary care physician. Patient stated that she was given some cough medication and was discharge. Her blood cultures are now reported as growing staph epidermides, and her sputum with MRSA and Pseudomonas. Patient was called back in to the hospital and admitted. Since admission she has not had any fever. She is still coughing up some yellowish phlegm. She gets some dyspnea on exertion. She has occasional pain on her chest when she has a lot of coughing episodes. Her chest x-ray now is showing some basilar infiltrates. Notes reviewed D/W Dr Elizondo Good UO Afebrile Creatinine slightly lower Renal US no obstruction Urine for eos (+) Frequent BM, not liquid No abdominal pain No N/V No new complaints Had fairly high grade bacteremia BC (+) 12/24, 12/28, 12/30 TTE negative UC with PSAE and Enterococcus Sputum PSAE Sputum from 12/24 PSAE and MRSA WBC normal Creatinine went up to 1.4 Antibiotics None Lines PIV Permacath - removed Past Medical History Multiple sclerosis diagnosed in late 2012 requiring plasmapheresis weekly Fibromyalgia Bipolar disorder History of obesity Hypertension Lupus Fibromyalgia Gastroparesis Recurrent UTIs Past Surgical History chronic indwelling suprapubic cath. changed monthly 2004 the patient had C3 through C6 anterior cervical discectomy and arthrodesis for severe cervical stenosis and myelopathy 2008 the patient had again the same diagnosis but had C6-C7 anterior cervical discectomy and arthrodesis 2010 the patient had open reduction, internal fixation of a right ankle fracture Right distal fibula fracture Torn lateral meniscus last year and underwent arthroscopic surgery Laparoscopic cholecystectomy Hysterectomy Suprapubic catheter placement PermCath placement Allergies: Coded Allergies: acetaminophen (Unverified Allergy, Severe, ITCHING, 12/28/16) adhesive (Unverified Allergy, Severe, Rash, 12/28/16) albuterol (Unverified Allergy, Severe, SORES, 12/28/16) codeine (Unverified Allergy, Severe, SWELLING AND DIFFICULTY BREATHING, ) hydrocodone (Unverified Allergy, Severe, RASH AND SWELLING, 12/28/16) isradipine (Unverified Allergy, Severe, ELEVATED HEART RATE, 12/28/16) methylprednisolone (Unverified Allergy, Severe, Shortness of Breath, ) oxycodone (Unverified Allergy, Severe, ITCHING, 12/28/16) Objective . Vital Signs Date Time Temp Pulse Resp B/P (MAP) Pulse Ox O2 Delivery O2 Flow Rate FiO2 01/06/17 08:47 97 01/06/17 08:00 96.7 95 16 153/75 (101) 98 01/06/17 00:00 99.2 96 20 144/73 (96) 95 01/05/17 20:00 98.7 83 20 132/70 (90) 95 01/05/17 16:00 97.9 82 18 119/68 (85) 97 01/05/17 12:00 98.3 82 17 127/69 (88) 96 . Laboratory Tests Test 01/05/17 07:00 01/06/17 03:56 Blood Urea Nitrogen 27 MG/DL 28 MG/DL Creatinine 4.20 MG/DL 4.02 MG/DL Random Glucose 109 MG/DL 107 MG/DL Calcium Level 9.0 MG/DL 9.2 MG/DL Sodium Level 142 MEQ/L 144 MEQ/L Potassium Level 3.7 MEQ/L 3.6 MEQ/L Chloride Level 110 MEQ/L 112 MEQ/L Carbon Dioxide Level 21.4 MEQ/L 22.0 MEQ/L Anion Gap 11 MEQ/L 10 MEQ/L Estimat Glomerular Filtration Rate 13 ML/MIN 14 ML/MIN Microbiology Date/Time Source Procedure Growth Status 01/06/17 05:20 Stool Stool Cryptosporidium Exam Pending Resulted 01/06/17 05:20 Stool Stool Stool Pus (ALEJANDRINA) - Final NO WBC'S SEEN Resulted 01/06/17 05:20 Stool Stool Giardia Antigen (ALEJANDRINA) Pending Resulted 01/06/17 05:20 Stool Stool Stool Occult Blood (ALEJANDRINA) - Final HEMOCCULT POSITIVE Resulted 01/06/17 05:20 Stool Stool Gram Stain - Final Complete Imaging Last Impressions Chest X-Ray 12/28/162045 Signed Impressions: Service Date/Time: Friday, December 28, 2016 21:00 - CONCLUSION: 1. Right basilar streakiness consistent with atelectasis and/or mild infiltrate. Clinical correlation is recommended. Manuel Adam MD Physical Exam GENERAL: awake and alert, NAD SKIN: Warm and dry. No generalized rash HEAD: Atraumatic. Normocephalic. No temporal wasting, or tenderness. EYES: [place] conjunctiva. No petechia or hemorrhage. No scleral icterus. No injection or drainage. EARS, NOSE AND THROAT: Nose without bleeding or purulent nasal discharge. Mucous membranes pink and moist. No oral lesions noted. NECK: Trachea midline. Supple and not tender, no meningeal signs.dry dressing over previous permacath site CARDIOVASCULAR: Regular rate and rhythm. No murmurs, rubs or gallops heard RESPIRATORY: Clear to auscultation. Breath sounds equal bilaterally. No rales , wheezing or rhonchi. Decreased BS at the bases. ABDOMEN: Soft, non-tender, nondistended. Bowel sounds present and normoactive. No guarding. No rebound. No organomegaly. : SPC in place, site ok, urine looks ok EXTREMITIES: No clubbing, cyanosis, or edema. No joint effusion. No calf tenderness. Well perfused and warm. NEUROLOGICAL: Awake and alert. Cranial nerves grossly intact. weakness in her BLE. PSYCHIATRIC: Normal affect, calm and cooperative. LINE: PIV ok. Assessment & Plan Remarks IMPRESSION PNA, patient with known MS, C/S with MRSA and PSAE - latest sputum with PSAE - better; last CXR clear UTI, has SPC, C/S with PSAE and Enterococcus - repeat UA better (+) BC with Staph epi, due to CABSI, has permacath - very long bacteremia Multiple sclerosis - on plasmapheresis Known Lupus Renal insufficiency - ?has plateaus - ?due to Abx, interstitial nephritis RECOMMENDATION Follow creatinine Continue to hold Abx - she has received adequate Abx for her PNA (MRSA and PSAE) - will need Rx for S taph epi line related high grade bacteremia Check vanco level - once level at least 15, I will start Cubicin Getting hydration Renal following Explained plan to patient D/W Dr Elizondo D/W Mili Estrada MD Jan 06, 2017 12:00
--- NOTE | 2017-01-06 16:05 | HHI.NPPN ---
Subjective History of Present Illness 61-year-old female with past medical history of fibromyalgia, bipolar disorder, hypertension, lupus, recurrent urinary tract infection and a suprapubic catheter who was admitted with cough and weakness. I was called to see the patient with elevated BUN and creatinine. The patient has history of advanced multiple sclerosis and she has been on weekly plasmapheresis. Additional Remarks Patient is alert, has nausea, not eating well, no SOB. Review of Systems General Constitutional: Fatigue Respiratory Lungs: SOB, Cough, Sputum, Wheeze Cardiovascular Cardiac: Edema, BLACK Objective Data Data Vital Signs Date Time Temp Pulse Resp B/P (MAP) Pulse Ox O2 Delivery O2 Flow Rate FiO2 01/06/17 08:47 97 01/06/17 08:00 96.7 95 16 153/75 (101) 98 01/06/17 00:00 99.2 96 20 144/73 (96) 95 01/05/17 20:00 98.7 83 20 132/70 (90) 95 -: 01/04/17 1155 01/06/17 0356 Microbiology 01/06/17 Gram Stain - Final, Complete Physical Exam General Appearance: No Acute Distress, Comfortable Eyes Eye Exam: Pupils Equal Neck Neck Exam: Neck Supple Pulmonary Resp Exam: Crackles, Rhonchi, Sputum, Decreased Bases, Diminished Breath Sounds Cardiology CV Exam: Regular, Normal Sinus Rhythm Gastrointestinal/Abdomen GI Exam: Soft, Non-Tender, Bowel Sounds Present, Distended Extremeties Extremities Exam: Trace Edema Neurologic Neuro Exam: Alert, Awake, Oriented Psychiatric Psych Exam: Appropriate Responses Assessment/Plan Assessment Summary: THONG/Acute Renal Failure Problem List: (1) Essential hypertension ICD Codes: I10 - Essential (primary) hypertension Status: Chronic (2) GERD (gastroesophageal reflux disease) ICD Codes: K21.9 - Gastroesophageal reflux disease Status: Chronic (3) Generalized weakness ICD Codes: R53.1 - Weakness Status: Acute (4) Suprapubic catheter dysfunction ICD Codes: T83.010A - Breakdown (mechanical) of cystostomy catheter, initial encounter Status: Acute (5) Fibromyalgia ICD Codes: M79.7 - Fibromyalgia Status: Chronic (6) Lupus (systemic lupus erythematosus) ICD Codes: M32.9 - Systemic lupus erythematosus, unspecified Status: Chronic (7) THONG (acute kidney injury) ICD Codes: N17.9 - Acute kidney failure, unspecified Plan Still has no proteinuria. Urine out put is much better. BP is stable. Has urine Eosinophils and high Vanco. level. THONG is either due to possible interstitial Nephritis or Tubular damage due to high Vanco level. Continue IVF, avoid Nephrotoxins. Creatinine is slightly better. Encourage oral intake. Continue IVF. Ivet Foote MD Jan 06, 2017 16:05
[2017-01-06] MEDS: NIFEdipine 10 MG CAP PO SCH (21:05)
[2017-01-07] VITALS (8 sets, daily range): BP systolic 125–142; BP diastolic 70–82; PULSE 79–103; RESP 17–20; TEMP 97.5–99.1; O2SAT 95–99
[2017-01-07] MEDS: RESP: IPRATROPIUM 0.5 MG/2.5 ML NEB NEB SCH ×3 (04:00→08:42)
[2017-01-07] MEDS: HYDROmorphone HCL 4 MG TAB PO PRN (05:44)
[2017-01-07 07:02] LABS: BICARBONATE 21.2 MEQ/L (21.0-32.0); POTASSIUM 3.6 MEQ/L (3.5-5.1)
[2017-01-07] MEDS: GABAPENTIN 300 MG CAP PO SCH ×3 (08:34→21:28)
[2017-01-07] MEDS: ONDANSETRON HCL 4 MG/2 ML VIAL IV PRN ×2 (08:34→08:37)
[2017-01-07] MEDS: NIFEdipine 60 MG SUSTAINED RELEASE TAB PO SCH (08:34)
[2017-01-07] MEDS: HYDROXYCHLOROQUINE SULFATE 200 MG TAB PO SCH ×2 (08:34→21:27)
[2017-01-07] MEDS: guaiFENesin E.R. 600 MG TAB PO SCH ×2 (08:34→21:27)
[2017-01-07] MEDS: PANTOPRAZOLE SOD 20 MG DELAYED RELEASE TAB PO SCH (08:34)
[2017-01-07] MEDS: METHENAMINE HIPPURATE 1 GM PO SCH ×2 (08:35→21:00)
[2017-01-07] MEDS: ASPIRIN 325 MG TAB PO SCH (08:35)
[2017-01-07] MEDS: cloNIDine HCL 0.2 MG TAB PO SCH ×3 (08:36→18:00)
[2017-01-07] MEDS: SODIUM CHLOR 0.9% 1000 ML INJ 1,000 ML IV SCH ×2 (09:15→18:38)
[2017-01-07] MEDS ORDERED: RESP: ALBUTEROL 2.5 MG/IPRATROPIUM 0.5 MG NEB (PRN) NEB (12:00)
[2017-01-07] MEDS: DAPTOmycin INJ 650 MG in SODIUM CHLORIDE 0.9% INJ 100 ML IV SCH (14:05)
--- NOTE | 2017-01-07 14:27 | HHI.PR ---
Subjective Remarks Patient in better spirits today happy that her renal function continues to improve slightly offers no specific complaints at this time Objective Vitals Vital Signs Date Time Temp Pulse Resp B/P (MAP) Pulse Ox O2 Delivery O2 Flow Rate FiO2 01/07/17 12:00 97.6 87 20 131/78 (95) 95 01/07/17 08:47 99 01/07/17 08:00 98.5 94 19 142/78 (99) 95 01/07/17 04:00 99.1 103 19 137/82 (100) 98 01/07/17 00:00 98.4 95 17 136/78 (97) 99 01/06/17 21:40 97 01/06/17 20:00 98.5 94 17 133/79 (97) 97 01/06/17 16:00 98.6 81 14 137/77 (97) 97 01/07/17 01/07/17 01/08/17 15:00 23:00 07:00 Intake Total 240 ml Balance 240 ml Intake Oral 240 ml Result Diagram: 01/04/17 1155 01/07/17 0545 Other Results Laboratory Tests Test 01/05/17 07:00 01/06/17 03:56 01/06/17 05:20 01/07/17 05:45 Blood Urea Nitrogen 27 MG/DL 28 MG/DL 24 MG/DL Creatinine 4.20 MG/DL 4.02 MG/DL 3.67 MG/DL Random Glucose 109 MG/DL 107 MG/DL 106 MG/DL Calcium Level 9.0 MG/DL 9.2 MG/DL 8.9 MG/DL Sodium Level 142 MEQ/L 144 MEQ/L 144 MEQ/L Potassium Level 3.7 MEQ/L 3.6 MEQ/L 3.6 MEQ/L Chloride Level 110 MEQ/L 112 MEQ/L 114 MEQ/L Carbon Dioxide Level 21.4 MEQ/L 22.0 MEQ/L 21.2 MEQ/L Anion Gap 11 MEQ/L 10 MEQ/L 9 MEQ/L Estimat Glomerular Filtration Rate 13 ML/MIN 14 ML/MIN 15 ML/MIN Random Vancomycin Level 35.9 COMMENT 30.6 COMMENT 22.5 COMMENT Eosinophil Stool Smear NONE SEEN /HPF Stool C. difficile Toxin (PCR) NEGATIVE Stl C. difficile Toxin Epiderm 027 PRESUMPTIVE NEGATIVE Imaging Last Impressions Central Venous Line 12/31/16 0000 Signed Impressions: Service Date/Time: Saturday, December 31, 2016 00:00 - CONCLUSION: Uncomplicated Permcath removal. Marky Cid MD Chest X-Ray 12/28/162045 Signed Impressions: Service Date/Time: Wednesday, December 28, 2016 21:00 - CONCLUSION: 1. Right basilar streakiness consistent with atelectasis and/or mild infiltrate. Clinical correlation is recommended. Manuel Adam MD Objective Remarks GENERAL: This is an obese, well-developed patient, in no apparent distress. CARDIOVASCULAR: Regular rate and rhythm without murmurs, gallops, or rubs. RESPIRATORY: Clear to auscultation. Breath sounds equal bilaterally. No wheezes , rales, or rhonchi. GASTROINTESTINAL: Abdomen soft, non-tender, nondistended. Normal active bowel sounds GENITOURINARY: suprapubic catheter in place MUSCULOSKELETAL: Extremities without clubbing, cyanosis, or edema. NEURO: Alert & Oriented x4 to person, place, time, situation. Moves all ext x4 A/P Problem List: (1) Bronchopneumonia ICD Codes: J18.0 - Bronchopneumonia, unspecified organism Plan: - cmgmt with ID - Pt is 61 yo woman with advance multiple sclerosis. She has been receiving weekly plasmapheresis on Friday - She presented to the ED with complaints of productive cough that began around 2 - 3 weeks ago. Received around 11 days Levaquin initially but no improvement. - Pt was seen in ED and had sputum and blood cx on 12/24 and was diagnosed with bronchitis then discharged. - Pt was called back to ED 12/28 for positive sputum MRSA/pseudomonas and blood cx staph epi 2/4 - Pt says her hands were also getting weak and MS starting to flare. She has also missed her last 2 treatments. - SPC was last changed around 12/19 per the pt. It is changed monthly per the pt. - blood Cx (12/30/16) - Staph Epi 3/4 bottles - urine cx (12/28) --> pseudomonas, enterococcus - sputum cx (12/29) --> pseudomonas - blood cx (12/30) from permcath - staph epi - PermCath removed (12/31/16) d/t infection. tip cx --> less than 15 CFU - repeat blood cx (01/01/17) --> NGTD - repeat Blood Cx (01/02/17) --> NGTD - Echocardiogram (12/31/16) --> no vegetations noted, EF 55-60% - SHADY (01/03/17) --> NO vegetation - hold off on placing new PermCath until bacteremia resolved - so no plasmapheresis at this time - In the ED pt was given Primaxin as best ALEJANDRINA. - Vanco (12/29 - 01/04) - Zosyn and (12/29 - 01/04) - Cont scheduled duonebs. and mucomyst - 01/04/17 repeat CXR- no acute disease - PT and OT - supportive care - DVT prophylaxis - discussed with ID - vanco levels decreasing- ID plans to start Daptomycin- to treat Staph Epi in blood (2) Multiple sclerosis ICD Codes: G35 - Multiple sclerosis Status: Chronic Plan: - Pt has missed her last two plasmapheresis sessions prior to admission - Pt reports weakness in the UE - see above (3) Chronic indwelling Mendoza catheter ICD Codes: Z92.89 - Personal history of other medical treatment Status: Chronic Plan: - SPC last changed on 12/19 (4) Essential hypertension ICD Codes: I10 - Essential (primary) hypertension Status: Chronic Plan: Controlled continue Clonidine 0.2 mg Q6H PRN SBP >160, Lisinopril 20mg daily, Nifedipine 60 mg PO daily, Nifedipine 30 mg PO QHS monitor BP trend (5) Fibromyalgia ICD Codes: M79.7 - Fibromyalgia Status: Chronic (6) Lupus (systemic lupus erythematosus) ICD Codes: M32.9 - Systemic lupus erythematosus, unspecified Status: Chronic (7) THONG (acute kidney injury) ICD Codes: N17.9 - Acute kidney failure, unspecified Plan: creatinine trending upward 0.96 -> 1.46 -> 2.83 ->4.00 -> 4.20 -> 4.02 Vancomycin and Zosyn DC'd 01/04/17 repeat BMP in AM continue NS at 100ml/H urine output over the past 24 hours 3000 ml also followed by Nephrology- Has urine Eosinophils and high Vanco. level. THONG is either due to possible interstitial Nephritis or Tubular damage due to high Vanco level. Continue IVF, avoid Nephrotoxins. Follow the urine out put and BMP (8) Altered mental status ICD Codes: R41.82 - Altered mental status, unspecified Plan: improving CT head ordered and reviewed no acute finding see THONG above (9) Diarrhea ICD Codes: R19.7 - Diarrhea, unspecified Plan: 2 soft BMs today stool studies ordered and pending Assessment and Plan Patient examined. Assessment and plan formulated with fern keller PA-C. I agree with the above. Line sepsis. Nosocomial pna THONG due to AIN MS currently off plasmapheresis monitor cr for improvement. currently getting better so no steroid initiated. dapto started. cont pt/ot Autumn Keller Jan 07, 2017 14:27 Alex Morales MD Jan 07, 2017 18:08
--- NOTE | 2017-01-07 20:11 | HHI.NPPN ---
Subjective History of Present Illness 61-year-old female with past medical history of fibromyalgia, bipolar disorder, hypertension, lupus, recurrent urinary tract infection and a suprapubic catheter who was admitted with cough and weakness. I was called to see the patient with elevated BUN and creatinine. The patient has history of advanced multiple sclerosis and she has been on weekly plasmapheresis. Additional Remarks Patient is alert, has nausea, not eating well, no SOB, clinically same. Review of Systems General Constitutional: Fatigue Respiratory Lungs: SOB, Cough, Sputum, Wheeze Cardiovascular Cardiac: Edema, BLACK Objective Data Data 01/07/17 01/08/17 19:00 07:00 Intake Total 1240 ml Output Total 2200 ml Balance -960 ml Intake Oral 1240 ml Output Urine Total 2200 ml # Bowel Movements 1 Vital Signs Date Time Temp Pulse Resp B/P (MAP) Pulse Ox O2 Delivery O2 Flow Rate FiO2 01/07/17 17:39 97 01/07/17 16:00 97.5 79 20 132/79 (96) 95 01/07/17 12:00 97.6 87 20 131/78 (95) 95 01/07/17 08:47 99 01/07/17 08:00 98.5 94 19 142/78 (99) 95 01/07/17 04:00 99.1 103 19 137/82 (100) 98 01/07/17 00:00 98.4 95 17 136/78 (97) 99 01/06/17 21:40 97 -: 01/04/17 1155 01/07/17 0545 Physical Exam General Appearance: No Acute Distress, Comfortable Eyes Eye Exam: Pupils Equal Neck Neck Exam: Neck Supple Pulmonary Resp Exam: Crackles, Rhonchi, Sputum, Decreased Bases, Diminished Breath Sounds Cardiology CV Exam: Regular, Normal Sinus Rhythm Gastrointestinal/Abdomen GI Exam: Soft, Non-Tender, Bowel Sounds Present, Distended Extremeties Extremities Exam: Trace Edema Neurologic Neuro Exam: Alert, Awake, Oriented Psychiatric Psych Exam: Appropriate Responses Assessment/Plan Assessment Summary: THONG/Acute Renal Failure Problem List: (1) Essential hypertension ICD Codes: I10 - Essential (primary) hypertension Status: Chronic (2) GERD (gastroesophageal reflux disease) ICD Codes: K21.9 - Gastroesophageal reflux disease Status: Chronic (3) Generalized weakness ICD Codes: R53.1 - Weakness Status: Acute (4) Suprapubic catheter dysfunction ICD Codes: T83.010A - Breakdown (mechanical) of cystostomy catheter, initial encounter Status: Acute (5) Fibromyalgia ICD Codes: M79.7 - Fibromyalgia Status: Chronic (6) Lupus (systemic lupus erythematosus) ICD Codes: M32.9 - Systemic lupus erythematosus, unspecified Status: Chronic (7) THONG (acute kidney injury) ICD Codes: N17.9 - Acute kidney failure, unspecified Plan Still has no proteinuria. Urine out put is much better. BP is stable. Has urine Eosinophils and high Vanco. level. THONG is either due to possible interstitial Nephritis or Tubular damage due to high Vanco level. Continue IVF, avoid Nephrotoxins. Creatinine is improving. Started on Daptomycin, ID is following. Ivet Foote MD Jan 07, 2017 20:11
[2017-01-07] MEDS: NIFEdipine 10 MG CAP PO SCH (21:27)
[2017-01-08] VITALS: BP 124/70; PULSE 76; RESP 17; TEMP 98.4; O2SAT 98
[2017-01-08] MEDS: HYDROmorphone HCL 4 MG TAB PO PRN ×2 (01:19→21:31)
[2017-01-08] MEDS: SODIUM CHLOR 0.9% 1000 ML INJ 1,000 ML IV SCH ×2 (05:15→17:23)
[2017-01-08 08:00] VITALS: BP 139/73; PULSE 96; RESP 20; TEMP 99.5; O2SAT 95
[2017-01-08] MEDS: METHENAMINE HIPPURATE 1 GM PO SCH ×2 (09:00→21:00)
[2017-01-08 10:12] LABS: BICARBONATE 20.3 MEQ/L (21.0-32.0); POTASSIUM 3.7 MEQ/L (3.5-5.1)
[2017-01-08] MEDS: HYDROXYCHLOROQUINE SULFATE 200 MG TAB PO SCH ×2 (10:12→21:30)
[2017-01-08] MEDS: NIFEdipine 60 MG SUSTAINED RELEASE TAB PO SCH (10:12)
[2017-01-08] MEDS: cloNIDine HCL 0.2 MG TAB PO SCH ×3 (10:12→17:23)
[2017-01-08] MEDS: ASPIRIN 325 MG TAB PO SCH (10:12)
[2017-01-08] MEDS: PANTOPRAZOLE SOD 20 MG DELAYED RELEASE TAB PO SCH (10:13)
[2017-01-08] MEDS: GABAPENTIN 300 MG CAP PO SCH ×3 (10:13→21:30)
[2017-01-08] MEDS: guaiFENesin E.R. 600 MG TAB PO SCH ×2 (10:13→21:30)
--- NOTE | 2017-01-08 11:11 | HHI.PR ---
Subjective Remarks c/o headache Objective Vitals heart reg lung cta abd s/nt ext no edema Vital Signs Date Time Temp Pulse Resp B/P (MAP) Pulse Ox O2 Delivery O2 Flow Rate FiO2 01/08/17 08:00 99.5 96 20 139/73 (95) 95 01/08/17 00:00 98.4 76 17 124/70 (88) 98 01/07/17 20:00 98.9 81 17 125/70 (88) 98 01/07/17 17:39 97 01/07/17 16:00 97.5 79 20 132/79 (96) 95 01/07/17 12:00 97.6 87 20 131/78 (95) 95 01/08/17 01/08/17 01/09/17 15:00 23:00 07:00 Intake Total 120 ml Balance 120 ml Intake Oral 120 ml Result Diagram: 01/04/17 1155 01/08/17 0901 Imaging Last Impressions Central Venous Line 12/31/16 0000 Signed Impressions: Service Date/Time: Saturday, December 31, 2016 00:00 - CONCLUSION: Uncomplicated Permcath removal. Marky Cid MD Chest X-Ray 12/28/162045 Signed Impressions: Service Date/Time: Wednesday, December 28, 2016 21:00 - CONCLUSION: 1. Right basilar streakiness consistent with atelectasis and/or mild infiltrate. Clinical correlation is recommended. Manuel Adam MD A/P Problem List: (1) Bronchopneumonia ICD Codes: J18.0 - Bronchopneumonia, unspecified organism Plan: - cmgmt with ID - Pt is 61 yo woman with advance multiple sclerosis. She has been receiving weekly plasmapheresis on Friday - She presented to the ED with complaints of productive cough that began around 2 - 3 weeks ago. Received around 11 days Levaquin initially but no improvement. - Pt was seen in ED and had sputum and blood cx on 12/24 and was diagnosed with bronchitis then discharged. - Pt was called back to ED 12/28 for positive sputum MRSA/pseudomonas and blood cx staph epi 2/ - Pt says her hands were also getting weak and MS starting to flare. She has also missed her last 2 treatments. - SPC was last changed around 12/19 per the pt. It is changed monthly per the pt. - blood Cx (12/30/16) - Staph Epi 3/4 bottles - urine cx (12/28) --> pseudomonas, enterococcus - sputum cx (12/29) --> pseudomonas - blood cx (12/30) from permcath - staph epi - PermCath removed (12/31/16) d/t infection. tip cx --> less than 15 CFU - repeat blood cx (01/01/17) --> NGTD - repeat Blood Cx (01/02/17) --> NGTD - Echocardiogram (12/31/16) --> no vegetations noted, EF 55-60% - SHADY (01/03/17) --> NO vegetation - hold off on placing new PermCath until bacteremia resolved - so no plasmapheresis at this time - In the ED pt was given Primaxin as best ALEJANDRINA. - Vanco (12/29 - 01/04) - Zosyn and (12/29 - 01/04) - Cont prn duonebs. and mucomyst - 01/04/17 repeat CXR- no acute disease - PT and OT - supportive care - DVT prophylaxis - discussed with ID - vanco levels decreasing- Daptomycin started to complete therapy for bacteremia. (2) THONG (acute kidney injury) ICD Codes: N17.9 - Acute kidney failure, unspecified Plan: thong due to AIN from vanco vs zosyn Vancomycin and Zosyn DC'd 01/04/17 continue NS at 100ml/H good urine output cr improving daily. (3) Multiple sclerosis ICD Codes: G35 - Multiple sclerosis Status: Chronic Plan: - Pt has missed her last two plasmapheresis sessions prior to admission - Pt reports weakness in the UE - see above (4) Chronic indwelling Mendoza catheter ICD Codes: Z92.89 - Personal history of other medical treatment Status: Chronic Plan: - SPC last changed on 12/19 (5) Essential hypertension ICD Codes: I10 - Essential (primary) hypertension Status: Chronic Plan: Controlled continue Clonidine 0.2 mg Q6H PRN SBP >160, Lisinopril 20mg daily, Nifedipine 60 mg PO daily, Nifedipine 30 mg PO QHS monitor BP trend (6) Fibromyalgia ICD Codes: M79.7 - Fibromyalgia Status: Chronic (7) Lupus (systemic lupus erythematosus) ICD Codes: M32.9 - Systemic lupus erythematosus, unspecified Status: Chronic (8) Altered mental status ICD Codes: R41.82 - Altered mental status, unspecified Plan: improving CT head ordered and reviewed no acute finding see THONG above Alex Morales MD Jan 08, 2017 11:11
[2017-01-08 12:00] VITALS: BP 164/90; PULSE 102; RESP 19; TEMP 99.4; O2SAT 96
[2017-01-08 16:00] VITALS: BP 135/69; PULSE 88; RESP 20; TEMP 99.9; O2SAT 97
--- NOTE | 2017-01-08 16:40 | HHI.NPPN ---
Subjective History of Present Illness 61-year-old female with past medical history of fibromyalgia, bipolar disorder, hypertension, lupus, recurrent urinary tract infection and a suprapubic catheter who was admitted with cough and weakness. I was called to see the patient with elevated BUN and creatinine. The patient has history of advanced multiple sclerosis and she has been on weekly plasmapheresis. Additional Remarks Patient is alert, has nausea, no vomiting, leg pain is better. Review of Systems General Constitutional: Fatigue Respiratory Lungs: SOB, Cough, Sputum, Wheeze Cardiovascular Cardiac: Edema, BLACK Objective Data Data 01/08/17 01/09/17 19:00 07:00 Intake Total 240 ml Balance 240 ml Intake Oral 240 ml Vital Signs Date Time Temp Pulse Resp B/P (MAP) Pulse Ox O2 Delivery O2 Flow Rate FiO2 01/08/17 12:00 99.4 102 19 164/90 (114) 96 01/08/17 08:00 99.5 96 20 139/73 (95) 95 01/08/17 00:00 98.4 76 17 124/70 (88) 98 01/07/17 20:00 98.9 81 17 125/70 (88) 98 01/07/17 17:39 97 -: 01/04/17 1155 01/08/17 0901 Physical Exam General Appearance: No Acute Distress, Comfortable Eyes Eye Exam: Pupils Equal Neck Neck Exam: Neck Supple Pulmonary Resp Exam: Crackles, Rhonchi, Sputum, Decreased Bases, Diminished Breath Sounds Cardiology CV Exam: Regular, Normal Sinus Rhythm Gastrointestinal/Abdomen GI Exam: Soft, Non-Tender, Bowel Sounds Present, Distended Extremeties Extremities Exam: Trace Edema Neurologic Neuro Exam: Alert, Awake, Oriented Psychiatric Psych Exam: Appropriate Responses Assessment/Plan Assessment Summary: THONG/Acute Renal Failure Problem List: (1) Essential hypertension ICD Codes: I10 - Essential (primary) hypertension Status: Chronic (2) GERD (gastroesophageal reflux disease) ICD Codes: K21.9 - Gastroesophageal reflux disease Status: Chronic (3) Generalized weakness ICD Codes: R53.1 - Weakness Status: Acute (4) Suprapubic catheter dysfunction ICD Codes: T83.010A - Breakdown (mechanical) of cystostomy catheter, initial encounter Status: Acute (5) Fibromyalgia ICD Codes: M79.7 - Fibromyalgia Status: Chronic (6) Lupus (systemic lupus erythematosus) ICD Codes: M32.9 - Systemic lupus erythematosus, unspecified Status: Chronic (7) THONG (acute kidney injury) ICD Codes: N17.9 - Acute kidney failure, unspecified Plan Still has no proteinuria. Urine out put is much better. BP is stable. Has urine Eosinophils and high Vanco. level. THONG is either due to possible interstitial Nephritis or Tubular damage due to high Vanco level. Continue IVF, avoid Nephrotoxins. Creatinine is improving, now 3.2. Started on Daptomycin, ID is following. Follow the urine out put and BMP. Ivet Foote MD Jan 08, 2017 16:40
[2017-01-08 20:00] VITALS: BP 132/71; PULSE 90; RESP 18; TEMP 99.5; O2SAT 95
[2017-01-08] MEDS: NIFEdipine 10 MG CAP PO SCH (21:30)
[2017-01-08 23:25] VITALS: BP 147/80; PULSE 97; RESP 19; TEMP 97.3; O2SAT 99
[2017-01-09 08:00] VITALS: BP 157/79; PULSE 98; RESP 18; TEMP 99.7; O2SAT 99
[2017-01-09] MEDS: ACETAMINOPHEN 1000 MG/100 ML VIAL IV PRN (08:21)
[2017-01-09] MEDS: ASPIRIN 325 MG TAB PO SCH (08:22)
[2017-01-09] MEDS: GABAPENTIN 300 MG CAP PO SCH ×3 (08:22→20:12)
[2017-01-09] MEDS: guaiFENesin E.R. 600 MG TAB PO SCH ×2 (08:22→20:12)
[2017-01-09] MEDS: NIFEdipine 60 MG SUSTAINED RELEASE TAB PO SCH (08:22)
[2017-01-09] MEDS: HYDROXYCHLOROQUINE SULFATE 200 MG TAB PO SCH ×2 (08:22→20:12)
[2017-01-09] MEDS: PANTOPRAZOLE SOD 20 MG DELAYED RELEASE TAB PO SCH (08:22)
[2017-01-09] MEDS: cloNIDine HCL 0.2 MG TAB PO SCH ×3 (08:22→17:31)
[2017-01-09] MEDS: SODIUM CHLOR 0.9% 1000 ML INJ 1,000 ML IV SCH ×2 (08:23→20:13)
[2017-01-09] MEDS: METHENAMINE HIPPURATE 1 GM PO SCH ×2 (08:23→20:16)
[2017-01-09] MEDS: DAPTOmycin INJ 650 MG in SODIUM CHLORIDE 0.9% INJ 100 ML IV SCH (11:11)
--- NOTE | 2017-01-09 11:47 | HHI.PR ---
Subjective Remarks Pt seems rather depressed today, more daytime sleepiness, no appetite She is eating applesauce and drinking Ensures. Denies any nausea/vomiting or abd pain She IV Ofirmev helped some with the headaches Objective Vitals Vital Signs Date Time Temp Pulse Resp B/P (MAP) Pulse Ox O2 Delivery O2 Flow Rate FiO2 01/08/17 23:25 97.3 97 19 147/80 (102) 99 01/08/17 20:00 99.5 90 18 132/71 (91) 95 01/08/17 16:00 99.9 88 20 135/69 (91) 97 01/08/17 12:00 99.4 102 19 164/90 (114) 96 Result Diagram: 01/08/17900 Other Results Laboratory Tests Test 01/08/17 09:01 Blood Urea Nitrogen 23 MG/DL Creatinine 3.26 MG/DL Random Glucose 94 MG/DL Calcium Level 9.0 MG/DL Sodium Level 142 MEQ/L Potassium Level 3.7 MEQ/L Chloride Level 111 MEQ/L Carbon Dioxide Level 20.3 MEQ/L Anion Gap 11 MEQ/L Estimat Glomerular Filtration Rate 17 ML/MIN Total Creatine Kinase 30 U/L Imaging Last Impressions Central Venous Line 12/31/16 0000 Signed Impressions: Service Date/Time: Saturday, December 31, 2016 00:00 - CONCLUSION: Uncomplicated Permcath removal. Marky Cid MD Chest X-Ray 12/28/162045 Signed Impressions: Service Date/Time: Wednesday, December 28, 2016 21:00 - CONCLUSION: 1. Right basilar streakiness consistent with atelectasis and/or mild infiltrate. Clinical correlation is recommended. Manuel Adam MD Objective Remarks General: NAD, converses with her eyes closed Chest: CTA Cardiac: Regular Abd: +BS, soft ND/NT Ext: No edema A/P Problem List: (1) Bronchopneumonia ICD Codes: J18.0 - Bronchopneumonia, unspecified organism Plan: - cmgmt with ID - Pt is 61 yo woman with advance multiple sclerosis. She has been receiving weekly plasmapheresis on Friday - She presented to the ED with complaints of productive cough that began around 2 - 3 weeks ago. Received around 11 days Levaquin initially but no improvement. - Pt was seen in ED and had sputum and blood cx on 12/24 and was diagnosed with bronchitis then discharged. - Pt was called back to ED 12/28 for positive sputum MRSA/pseudomonas and blood cx staph epi 2/ - Pt says her hands were also getting weak and MS starting to flare. She has also missed her last 2 treatments. - SPC was last changed around 12/19 per the pt. It is changed monthly per the pt. - blood Cx (12/30/16) - Staph Epi 3/4 bottles - urine cx (12/28) --> pseudomonas, enterococcus - sputum cx (12/29) --> pseudomonas - blood cx (12/30) from permcath - staph epi - PermCath removed (12/31/16) d/t infection. tip cx --> less than 15 CFU - repeat blood cx (01/01/17) --> NGTD - repeat Blood Cx (01/02/17) --> NGTD - Echocardiogram (12/31/16) --> no vegetations noted, EF 55-60% - SHADY (01/03/17) --> NO vegetation - hold off on placing new PermCath until bacteremia resolved - so no plasmapheresis at this time - In the ED pt was given Primaxin as best ALEJANDRINA. - Vanco (12/29 - 01/02) Vanc stopped due to high levels and worsening renal function. - Zosyn and (12/29 - 01/04) - Daptomycin started on 01/07 - Vanco levels decreasing- Daptomycin started to complete therapy for bacteremia. - Cont prn duonebs and Mucomyst - 01/04/17 repeat CXR--> no acute disease - PT and OT - Supportive care - DVT prophylaxis (2) THONG (acute kidney injury) ICD Codes: N17.9 - Acute kidney failure, unspecified Plan: - SKI due to AIN from vanco vs zosyn - Vancomycin and Zosyn DC'd 01/04/17 - Appreciate nephrology input - Cr has been improving. - Pt with good urine output - Monitor labs (3) Multiple sclerosis ICD Codes: G35 - Multiple sclerosis Status: Chronic Plan: - Pt has missed her last two plasmapheresis sessions prior to admission - Pt reports weakness in the UE - see above (4) Chronic indwelling Mendoza catheter ICD Codes: Z92.89 - Personal history of other medical treatment Status: Chronic Plan: - SPC last changed on 12/19 (5) Essential hypertension ICD Codes: I10 - Essential (primary) hypertension Status: Chronic Plan: - Controlled - Continue Clonidine 0.2 mg Q6H PRN SBP >160, Nifedipine 60 mg PO daily, Nifedipine 30 mg PO QHS - Monitor BP - Lisinopril 20mg daily held due to THONG (6) Fibromyalgia ICD Codes: M79.7 - Fibromyalgia Status: Chronic (7) Lupus (systemic lupus erythematosus) ICD Codes: M32.9 - Systemic lupus erythematosus, unspecified Status: Chronic (8) Altered mental status ICD Codes: R41.82 - Altered mental status, unspecified Plan: - Improving - CT head ordered and reviewed no acute finding - see THONG above Assessment and Plan Patient examined. Assessment and plan formulated with Katherin Nava PA-C. I agree with the above. line sepsis. cont dapto nosocomial pna ..treated MS. plasmapheresis on hold poor appetite/depressed cont supportive care family to bring in outside food. PT daily. Katherin Nava Jan 09, 2017 11:47 Alex Morales MD Jan 09, 2017 13:25
[2017-01-09 12:00] VITALS: BP 130/65; PULSE 93; RESP 18; TEMP 98.3; O2SAT 99
--- NOTE | 2017-01-09 12:26 | HHI.NPPN ---
Subjective History of Present Illness 61-year-old female with past medical history of fibromyalgia, bipolar disorder, hypertension, lupus, recurrent urinary tract infection and a suprapubic catheter who was admitted with cough and weakness. I was called to see the patient with elevated BUN and creatinine. The patient has history of advanced multiple sclerosis and she has been on weekly plasmapheresis. Additional Remarks Patient is alert, has nausea, no vomiting, still not eating well. Review of Systems General Constitutional: Fatigue Respiratory Lungs: SOB, Cough, Sputum, Wheeze Cardiovascular Cardiac: Edema, BLACK Objective Data Data Vital Signs Date Time Temp Pulse Resp B/P (MAP) Pulse Ox O2 Delivery O2 Flow Rate FiO2 01/08/17 23:25 97.3 97 19 147/80 (102) 99 01/08/17 20:00 99.5 90 18 132/71 (91) 95 01/08/17 16:00 99.9 88 20 135/69 (91) 97 -: 01/08/17 0901 Physical Exam General Appearance: No Acute Distress, Comfortable Eyes Eye Exam: Pupils Equal Neck Neck Exam: Neck Supple Pulmonary Resp Exam: Crackles, Rhonchi, Sputum, Decreased Bases, Diminished Breath Sounds Cardiology CV Exam: Regular, Normal Sinus Rhythm Gastrointestinal/Abdomen GI Exam: Soft, Non-Tender, Bowel Sounds Present, Distended Extremeties Extremities Exam: Trace Edema Neurologic Neuro Exam: Alert, Awake, Oriented Psychiatric Psych Exam: Appropriate Responses Assessment/Plan Assessment Summary: THONG/Acute Renal Failure Problem List: (1) Essential hypertension ICD Codes: I10 - Essential (primary) hypertension Status: Chronic (2) GERD (gastroesophageal reflux disease) ICD Codes: K21.9 - Gastroesophageal reflux disease Status: Chronic (3) Generalized weakness ICD Codes: R53.1 - Weakness Status: Acute (4) Suprapubic catheter dysfunction ICD Codes: T83.010A - Breakdown (mechanical) of cystostomy catheter, initial encounter Status: Acute (5) Fibromyalgia ICD Codes: M79.7 - Fibromyalgia Status: Chronic (6) Lupus (systemic lupus erythematosus) ICD Codes: M32.9 - Systemic lupus erythematosus, unspecified Status: Chronic (7) THONG (acute kidney injury) ICD Codes: N17.9 - Acute kidney failure, unspecified Plan Still has no proteinuria. Urine out put is much better. BP is stable. Has urine Eosinophils and high Vanco. level. THONG is either due to possible interstitial Nephritis or Tubular damage due to high Vanco level. Continue IVF, avoid Nephrotoxins. Creatinine is improving, now 3.2. Started on Daptomycin, ID is following. Follow the urine out put and BMP. No new BMP today, follow in AM. Ivet Foote MD Jan 09, 2017 12:26
--- NOTE | 2017-01-09 14:58 | PD.ONC.PN ---
Subjective Subjective Remarks "I'm going to live!" and family at bedside. Discussed laboratory findings. Copy labs given to patient. Objective Data Date Time Temp Pulse Resp B/P (MAP) Pulse Ox O2 Delivery O2 Flow Rate FiO2 01/08/17 23:25 97.3 97 19 147/80 (102) 99 01/08/17 20:00 99.5 90 18 132/71 (91) 95 01/08/17 16:00 99.9 88 20 135/69 (91) 97 01/09/17 01/09/17 01/09/17 06:59 14:59 22:59 Intake Total 480 ml Output Total 2125 ml 2000 ml Balance -1645 ml -2000 ml Result Diagram: 01/08/17 0901 Administered Medications Medications (Trade) Dose Ordered Sig/Sury Route PRN Reason Start Time Stop Time Status Last Admin Dose Admin Ondansetron HCl (Zofran Inj) 4 mg Q6H PRN IV NAUSEA OR VOMITING 12/29/16 07:15 01/07/17 08:37 Aspirin (Aspirin) 325 mg DAILY PO 12/30/16 09:00 01/09/17 08:22 Clonidine (Catapres) 0.2 mg TID PO 12/29/16 18:00 01/09/17 11:12 Gabapentin (Neurontin) 300 mg DAILY@1300 PO 12/30/16 13:00 01/09/17 11:12 Gabapentin (Neurontin) 600 mg BID PO 12/29/16 21:00 01/09/17 08:22 Hydromorphone HCl (Dilaudid) 4 mg Q8H PRN PO PAIN over 4 12/29/16 14:15 01/08/17 21:31 Hydroxychloroquine Sulfate (Plaquenil) 200 mg BID PO 12/29/16 21:00 01/09/17 08:22 Nifedipine (Procardia) 30 mg HS PO 12/29/16 21:00 01/08/17 21:30 Nifedipine (Procardia Xl) 60 mg DAILY PO 12/30/16 09:00 01/09/17 08:22 Pantoprazole Sodium (Protonix) 20 mg DAILY PO 12/30/16 09:00 01/09/17 08:22 Patient Own Medication PT OWN MED: METHENAM... BID PO 12/29/16 21:00 Future hold 01/09/17 08:23 Guaifenesin (Mucinex Er) 600 mg BID PO 12/29/16 21:00 01/09/17 08:22 Sodium Chloride 1,000 ml @ 100 mls/hr Q10H IV 01/04/17 11:15 01/09/17 08:23 Daptomycin 650 mg/ Sodium Chloride 100 ml @ 200 mls/hr Q48H IV 01/07/17 13:00 01/09/17 11:11 Acetaminophen (Ofirmev 1000 Mg/ 100 ml Inj) 1,000 mg Q12H PRN IV headache 01/08/17 12:45 01/09/17 08:21 Objective Remarks GENERAL: Older female, supine in bed getting therapy from PT SKIN: Warm and dry. HEAD: Normocephalic. EYES: No injection or drainage. NECK: Supple, trachea midline. CARDIOVASCULAR: Regular rate and rhythm without murmurs. RESPIRATORY: Breath sounds equal bilaterally. No accessory muscle use. GASTROINTESTINAL: Abdomen soft, non-tender, nondistended. EXTREMITIES: No cyanosis, or edema. MUSCULOSKELETAL: Adequate muscle tone. NEUROLOGICAL: Moving all extremities. Normal speech. Alert and oriented. Assessment/Plan Problem List: (1) Multiple sclerosis exacerbation ICD Codes: G35 - Multiple sclerosis Status: Chronic Plan: 01/09/17. Pt with MS stable, no need for pheresis. 01/06/17. MS no need for pheresis for now. Events over the weekend noted. Previously on Aubagio, last on Rebif -- On Aubagio per neurology -- This is supplemented with plasma exchange on a weekly, outpatient basis. -- This is likely an acute exacerbation of MS d/t bacteremia. -- Hold off on plasma exchange until bacteremia is cleared. (2) Sepsis ICD Codes: A41.9 - Sepsis, unspecified organism Plan: 01/09/17. Discussed cultures from 01/02 negative after 5 days. Renal function improving after stopping vancomycin. 01/06/17. Cultures from pheresis catheter show same Staph Epi. Abx tx complicated by nephritis/increased creatinine. Change abx per ID. -- She was seen in the ER on 12/24/16 and was diagnosed with bronchitis -- Blood cultures were found to be positive and the pt was called back for IV Abx -- [facility] and were found to be growing gram + cocci in pairs/clusters. -- Permacath tip culture pending Assessment y/o female admitted for IV antibiotics after her blood cultures grew out from previous ER visit. Plan 1. Nephrotoxicity from Vancomycin improve 2. Cubicin started by infectious disease. 3. Continue physical therapy while inpatient. 4. 01/02 blood cultures drawn since permacath removed 5. No pheresis needed. 6. Will follow peripherally. Beatriz Trevino MD Jan 09, 2017 14:58
--- NOTE | 2017-01-09 15:17 | HHI.IDPN ---
Subjective Subjective Remarks Patient is a 61 year old female, with known MS, admitted to the hospital after her BC came back (+) and he sputum C/S with MRSA and PSAE. Patient states that she has been sick since the early part of December. She had generalized malaise, and was having some productive cough. It was initially white in color and then it became yellow. She also has had some diarrhea in the beginning which has resolved, as well as vomiting. She continues to have vomiting at least 3 times a day but since she's been taking Zofran that has improved. She's had intermittent fevers the highest has been about 101. Patient gets plasmapheresis every Friday, and she missed a treatment about 2 weeks ago. She went for her treatment on December 24, and at that time she had mentioned that she was having some coughing. She was instructed to go the emergency room , and in the ER she was afebrile. And her chest x-ray did not show any consolidation. 2 blood cultures were done at that time as well as the sputum. Prior to that visit patient has been taking Levaquin as prescribed by her primary care physician. Patient stated that she was given some cough medication and was discharge. Her blood cultures are now reported as growing staph epidermides, and her sputum with MRSA and Pseudomonas. Patient was called back in to the hospital and admitted. Since admission she has not had any fever. She is still coughing up some yellowish phlegm. She gets some dyspnea on exertion. She has occasional pain on her chest when she has a lot of coughing episodes. Her chest x-ray now is showing some basilar infiltrates. Notes reviewed Creatinine slowly decreasing Good UO Afebrile No new (+) BC CPK ok Started on Cubicin 01/08 Renal US no obstruction Urine for eos (+) Had fairly high grade bacteremia BC (+) 12/24, 12/28, 12/30 TTE negative S/P Rx PNA Antibiotics Cubicin Lines PIV Permacath - removed Past Medical History Multiple sclerosis diagnosed in late 2012 requiring plasmapheresis weekly Fibromyalgia Bipolar disorder History of obesity Hypertension Lupus Fibromyalgia Gastroparesis Recurrent UTIs Past Surgical History chronic indwelling suprapubic cath. changed monthly 2004 the patient had C3 through C6 anterior cervical discectomy and arthrodesis for severe cervical stenosis and myelopathy 2008 the patient had again the same diagnosis but had C6-C7 anterior cervical discectomy and arthrodesis 2010 the patient had open reduction, internal fixation of a right ankle fracture Right distal fibula fracture Torn lateral meniscus last year and underwent arthroscopic surgery Laparoscopic cholecystectomy Hysterectomy Suprapubic catheter placement PermCath placement Allergies: Coded Allergies: adhesive (Unverified Allergy, Severe, Rash, 12/28/16) albuterol (Unverified Allergy, Severe, SORES, 12/28/16) codeine (Unverified Allergy, Severe, SWELLING AND DIFFICULTY BREATHING, ) hydrocodone (Unverified Allergy, Severe, RASH AND SWELLING, 12/28/16) isradipine (Unverified Allergy, Severe, ELEVATED HEART RATE, 12/28/16) methylprednisolone (Unverified Allergy, Severe, Shortness of Breath, ) oxycodone (Unverified Allergy, Severe, ITCHING, 12/28/16) Objective . Vital Signs Date Time Temp Pulse Resp B/P (MAP) Pulse Ox O2 Delivery O2 Flow Rate FiO2 01/08/17 23:25 97.3 97 19 147/80 (102) 99 01/08/17 20:00 99.5 90 18 132/71 (91) 95 01/08/17 16:00 99.9 88 20 135/69 (91) 97 01/09/17 01/09/17 01/10/17 15:00 23:00 07:00 Output Total 2000 ml Balance -2000 ml Output Urine Total 2000 ml . Laboratory Tests Test 01/08/17 09:01 Blood Urea Nitrogen 23 MG/DL Creatinine 3.26 MG/DL Random Glucose 94 MG/DL Calcium Level 9.0 MG/DL Sodium Level 142 MEQ/L Potassium Level 3.7 MEQ/L Chloride Level 111 MEQ/L Carbon Dioxide Level 20.3 MEQ/L Anion Gap 11 MEQ/L Estimat Glomerular Filtration Rate 17 ML/MIN Total Creatine Kinase 30 U/L Imaging Last Impressions Chest X-Ray 12/28/162045 Signed Impressions: Service Date/Time: Wednesday, December 28, 2016 21:00 - CONCLUSION: 1. Right basilar streakiness consistent with atelectasis and/or mild infiltrate. Clinical correlation is recommended. Manuel Adam MD Physical Exam GENERAL: awake and alert, NAD SKIN: Warm and dry. No generalized rash EYES: Moccasin conjunctiva. No petechia or hemorrhage. No scleral icterus. No injection or drainage. EARS, NOSE AND THROAT: Nose without bleeding or purulent nasal discharge. Mucous membranes pink and moist. No oral lesions noted. NECK: Trachea midline. Supple and not tender, no meningeal signs. Dry dressing over previous permacath site CARDIOVASCULAR: Regular rate and rhythm. No murmurs, rubs or gallops heard RESPIRATORY: Clear to auscultation. Breath sounds equal bilaterally. No rales , wheezing or rhonchi. Decreased BS at the bases. ABDOMEN: Soft, non-tender, nondistended. Bowel sounds present and normoactive. No guarding. No rebound. No organomegaly. : SPC in place, site ok, urine looks ok EXTREMITIES: No clubbing, cyanosis, or edema. No joint effusion. No calf tenderness. Well perfused and warm. NEUROLOGICAL: Awake and alert. Cranial nerves grossly intact. weakness in her BLE. PSYCHIATRIC: Normal affect, calm and cooperative. LINE: PIV ok. Assessment & Plan Remarks IMPRESSION PNA, patient with known MS, C/S with MRSA and PSAE - latest sputum with PSAE - better; last CXR clear UTI, has SPC, C/S with PSAE and Enterococcus - repeat UA better (+) BC with Staph epi, due to CABSI, has permacath - very long bacteremia Multiple sclerosis - on plasmapheresis, currently on hold Known Lupus Renal insufficiency - ?has plateaus - ?due to Abx, interstitial nephritis RECOMMENDATION Follow creatinine Continue Cubicin - follow CPK - anticipated end date Jan 27 Follow creatinine Monitor progress Give at least 4 weeks IV Abx from date of last (+) BC or removal of permacath Mili Wynn MD Jan 09, 2017 15:16
[2017-01-09 16:00] VITALS: BP 134/74; PULSE 103; RESP 18; TEMP 99.1; O2SAT 95
[2017-01-09] MEDS: ACETAMINOPHEN 325 MG TAB PO PRN (18:48)
[2017-01-09 20:00] VITALS: BP 177/88; PULSE 119; RESP 20; TEMP 101.4; O2SAT 96
[2017-01-09] MEDS: NIFEdipine 10 MG CAP PO SCH (20:12)
[2017-01-09] MEDS: cloNIDine HCL 0.2 MG TAB PO PRN (20:14)
[2017-01-10] VITALS: BP 135/92; PULSE 115; RESP 20; TEMP 100.2; O2SAT 99
[2017-01-10] MEDS: ONDANSETRON HCL 4 MG/2 ML VIAL IV PRN (05:46)
[2017-01-10 07:48] LABS: BICARBONATE 20.8 MEQ/L (21.0-32.0); MAGNESIUM 1.8 MG/DL (1.5-2.5); POTASSIUM 3.2 MEQ/L (3.5-5.1)
[2017-01-10 08:00] VITALS: BP 167/90; PULSE 116; RESP 19; TEMP 101; O2SAT 94
--- NOTE | 2017-01-10 08:58 | HHI.PR ---
Subjective Remarks Pt had fevers overnight, Tmax 101.4 She now reports that she has had vaginal bleeding and a foul odor for the last three days. Objective Vitals Vital Signs Date Time Temp Pulse Resp B/P (MAP) Pulse Ox O2 Delivery O2 Flow Rate FiO2 01/10/17 00:00 100.2 115 20 135/92 (106) 99 01/09/17 20:00 101.4 119 20 177/88 (117) 96 01/09/17 16:00 99.1 103 18 134/74 (94) 95 01/09/17 12:00 98.3 93 18 130/65 (86) 99 Result Diagram: 01/10/17 0657 Other Results Laboratory Tests Test 01/08/17 09:01 01/10/17 06:57 Blood Urea Nitrogen 23 MG/DL 18 MG/DL Creatinine 3.26 MG/DL 2.56 MG/DL Random Glucose 94 MG/DL 130 MG/DL Calcium Level 9.0 MG/DL 9.1 MG/DL Sodium Level 142 MEQ/L 143 MEQ/L Potassium Level 3.7 MEQ/L 3.2 MEQ/L Chloride Level 111 MEQ/L 111 MEQ/L Carbon Dioxide Level 20.3 MEQ/L 20.8 MEQ/L Anion Gap 11 MEQ/L 11 MEQ/L Estimat Glomerular Filtration Rate 17 ML/MIN 23 ML/MIN Total Creatine Kinase 30 U/L Magnesium Level 1.8 MG/DL Imaging Last Impressions Central Venous Line 12/31/16 0000 Signed Impressions: Service Date/Time: Saturday, December 31, 2016 00:00 - CONCLUSION: Uncomplicated Permcath removal. Marky Cid MD Chest X-Ray 12/28/162045 Signed Impressions: Service Date/Time: Wednesday, December 28, 2016 21:00 - CONCLUSION: 1. Right basilar streakiness consistent with atelectasis and/or mild infiltrate. Clinical correlation is recommended. Manuel Adam MD Objective Remarks General: NAD, AAOx3 Chest: CTA Cardiac: Regular Abd: +BS, soft ND/NT Ext: No edema A/P Problem List: (1) Sepsis ICD Codes: A41.9 - Sepsis, unspecified organism Status: Acute Plan: - Pt is 61 yo woman with advance multiple sclerosis. She has been receiving weekly plasmapheresis on Tuesdays - She presented to the ED with complaints of productive cough that began around 2 - 3 weeks ago. Received around 11 days Levaquin initially but no improvement. - Pt was seen in ED and had sputum and blood cx on 12/24 and was diagnosed with bronchitis then discharged. - Pt was called back to ED 12/28 for positive sputum MRSA/pseudomonas and blood cx staph epi 2/ - Pt says her hands were also getting weak and MS starting to flare. She has also missed her last 2 treatments. - SPC was last changed around 12/19 per the pt. It is changed monthly per the pt. - blood Cx (12/30/16) - Staph Epi 3/4 bottles - urine cx (12/28) --> pseudomonas, enterococcus - sputum cx (12/29) --> pseudomonas - blood cx (12/30) from permcath - staph epi - PermCath removed (12/31/16) d/t infection. tip cx --> less than 15 CFU - repeat blood cx (01/01/17) --> NGTD - repeat Blood Cx (01/02/17) --> NGTD - Echocardiogram (12/31/16) --> no vegetations noted, EF 55-60% - SHADY (01/03/17) --> NO vegetation - hold off on placing new PermCath until bacteremia resolved - so no plasmapheresis at this time - In the ED pt was given Primaxin as best ALEJANDRINA. - Vanco (12/29 - 01/02) Vanc stopped due to high levels and worsening renal function. - Zosyn and (12/29 - 01/04) - Daptomycin started on 01/07 - Vanco levels decreasing- Daptomycin started to complete therapy for bacteremia. - Cont prn duonebs and Mucomyst - 01/04/17 repeat CXR--> no acute disease - Pt had fevers overnight on 01/10 - Repeat blood cultures drawn on 01/10 - Pt also reporting vaginal bleeding and a foul odor, will consult FACILITY DESIGNER - PT and OT - Supportive care - DVT prophylaxis (2) Bronchopneumonia ICD Codes: J18.0 - Bronchopneumonia, unspecified organism Plan: - Improved - See above. (3) THONG (acute kidney injury) ICD Codes: N17.9 - Acute kidney failure, unspecified Plan: - THONG due to AIN from vanco vs zosyn - Vancomycin and Zosyn DC'd 01/04/17 - Appreciate nephrology input - Cr has been improving, down to 2.56 on 01/10 - Pt with good urine output - Monitor labs (4) Multiple sclerosis ICD Codes: G35 - Multiple sclerosis Status: Chronic Plan: - Pt has missed her last two plasmapheresis sessions prior to admission - Pt reports weakness in the UE - see above (5) Chronic indwelling Mendoza catheter ICD Codes: Z92.89 - Personal history of other medical treatment Status: Chronic Plan: - SPC last changed on 12/19 (6) Essential hypertension ICD Codes: I10 - Essential (primary) hypertension Status: Chronic Plan: - Controlled - Continue Clonidine 0.2 mg Q6H PRN SBP >160, Nifedipine 60 mg PO daily, Nifedipine 30 mg PO QHS - Monitor BP - Lisinopril 20mg daily held due to THONG (7) Fibromyalgia ICD Codes: M79.7 - Fibromyalgia Status: Chronic (8) Lupus (systemic lupus erythematosus) ICD Codes: M32.9 - Systemic lupus erythematosus, unspecified Status: Chronic (9) Altered mental status ICD Codes: R41.82 - Altered mental status, unspecified Plan: - Improving - CT head ordered and reviewed no acute finding - see THONG above Katherin Nava Jan 10, 2017 08:58
[2017-01-10] MEDS ORDERED: POTASSIUM CHLORIDE 20 MEQ CONTROLLED RELEASE TAB PO ONE (09:00)
[2017-01-10] MEDS: ACETAMINOPHEN 1000 MG/100 ML VIAL IV PRN ×2 (09:09→23:55)
[2017-01-10] MEDS: METHENAMINE HIPPURATE 1 GM PO SCH ×2 (09:12→21:42)
[2017-01-10] MEDS: GABAPENTIN 300 MG CAP PO SCH ×3 (09:13→21:42)
[2017-01-10] MEDS: guaiFENesin E.R. 600 MG TAB PO SCH ×2 (09:13→21:43)
[2017-01-10] MEDS: HYDROXYCHLOROQUINE SULFATE 200 MG TAB PO SCH ×2 (09:13→21:43)
[2017-01-10] MEDS: NIFEdipine 60 MG SUSTAINED RELEASE TAB PO SCH (09:13)
[2017-01-10] MEDS: cloNIDine HCL 0.2 MG TAB PO SCH ×3 (09:13→16:26)
[2017-01-10] MEDS: PANTOPRAZOLE SOD 20 MG DELAYED RELEASE TAB PO SCH (09:14)
[2017-01-10] MEDS: ASPIRIN 325 MG TAB PO SCH (09:14)
[2017-01-10] MEDS: SODIUM CHLOR 0.9% 1000 ML INJ 1,000 ML IV SCH ×3 (09:55→21:39)
[2017-01-10 12:00] VITALS: BP 153/87; PULSE 87; RESP 18; TEMP 98.4; O2SAT 99
--- NOTE | 2017-01-10 15:06 | HHI.IDPN ---
Subjective Subjective Remarks Patient is a 61 year old female, with known MS, admitted to the hospital after her BC came back (+) and he sputum C/S with MRSA and PSAE. Patient states that she has been sick since the early part of December. She had generalized malaise, and was having some productive cough. It was initially white in color and then it became yellow. She also has had some diarrhea in the beginning which has resolved, as well as vomiting. She continues to have vomiting at least 3 times a day but since she's been taking Zofran that has improved. She's had intermittent fevers the highest has been about 101. Patient gets plasmapheresis every Friday, and she missed a treatment about 2 weeks ago. She went for her treatment on December 24, and at that time she had mentioned that she was having some coughing. She was instructed to go the emergency room , and in the ER she was afebrile. And her chest x-ray did not show any consolidation. 2 blood cultures were done at that time as well as the sputum. Prior to that visit patient has been taking Levaquin as prescribed by her primary care physician. Patient stated that she was given some cough medication and was discharge. Her blood cultures are now reported as growing staph epidermides, and her sputum with MRSA and Pseudomonas. Patient was called back in to the hospital and admitted. Since admission she has not had any fever. She is still coughing up some yellowish phlegm. She gets some dyspnea on exertion. She has occasional pain on her chest when she has a lot of coughing episodes. Her chest x-ray now is showing some basilar infiltrates. Notes reviewed Febrile overnight Not coughing, not SOB Has noted some vaginal bleeding Has golden Has PIV No diarrhea No N/V last CXR clear Creatinine improving Good UO No new (+) BC CPK ok Started on Cubicin 01/08 Renal US no obstruction Urine for eos (+) Had fairly high grade bacteremia BC (+) 12/24, 12/28, 12/30 TTE negative S/P Rx PNA Antibiotics Cubicin Lines PIV Permacath - removed Past Medical History Multiple sclerosis diagnosed in late 2012 requiring plasmapheresis weekly Fibromyalgia Bipolar disorder History of obesity Hypertension Lupus Fibromyalgia Gastroparesis Recurrent UTIs Past Surgical History chronic indwelling suprapubic cath. changed monthly 2004 the patient had C3 through C6 anterior cervical discectomy and arthrodesis for severe cervical stenosis and myelopathy 2008 the patient had again the same diagnosis but had C6-C7 anterior cervical discectomy and arthrodesis 2010 the patient had open reduction, internal fixation of a right ankle fracture Right distal fibula fracture Torn lateral meniscus last year and underwent arthroscopic surgery Laparoscopic cholecystectomy Hysterectomy Suprapubic catheter placement PermCath placement Allergies: Coded Allergies: adhesive (Unverified Allergy, Severe, Rash, 12/28/16) albuterol (Unverified Allergy, Severe, SORES, 12/28/16) codeine (Unverified Allergy, Severe, SWELLING AND DIFFICULTY BREATHING, ) hydrocodone (Unverified Allergy, Severe, RASH AND SWELLING, 12/28/16) isradipine (Unverified Allergy, Severe, ELEVATED HEART RATE, 12/28/16) methylprednisolone (Unverified Allergy, Severe, Shortness of Breath, ) oxycodone (Unverified Allergy, Severe, ITCHING, 12/28/16) Objective . Vital Signs Date Time Temp Pulse Resp B/P (MAP) Pulse Ox O2 Delivery O2 Flow Rate FiO2 01/10/17 12:00 98.4 87 18 153/87 (109) 99 01/10/17 08:00 101.0 116 19 167/90 (115) 94 01/10/17 00:00 100.2 115 20 135/92 (106) 99 01/09/17 20:00 101.4 119 20 177/88 (117) 96 01/09/17 16:00 99.1 103 18 134/74 (94) 95 01/10/17 01/10/17 01/11/17 15:00 23:00 07:00 Intake Total 2433 ml Balance 2433 ml IV Total 2433 ml . Laboratory Tests Test 01/10/17 06:57 Blood Urea Nitrogen 18 MG/DL Creatinine 2.56 MG/DL Random Glucose 130 MG/DL Calcium Level 9.1 MG/DL Magnesium Level 1.8 MG/DL Sodium Level 143 MEQ/L Potassium Level 3.2 MEQ/L Chloride Level 111 MEQ/L Carbon Dioxide Level 20.8 MEQ/L Anion Gap 11 MEQ/L Estimat Glomerular Filtration Rate 23 ML/MIN Microbiology Date/Time Source Procedure Growth Status 01/10/17 06:57 Blood Peripheral Aerobic Blood Culture Pending Received 01/10/17 06:57 Blood Peripheral Anaerobic Blood Culture Pending Received Imaging Last Impressions Chest X-Ray 12/28/162045 Signed Impressions: Service Date/Time: Wednesday, December 28, 2016 21:00 - CONCLUSION: 1. Right basilar streakiness consistent with atelectasis and/or mild infiltrate. Clinical correlation is recommended. Manuel Adam MD Physical Exam GENERAL: awake and alert, NAD SKIN: Warm and dry. No generalized rash EYES: [place] conjunctiva. No petechia or hemorrhage. No scleral icterus. No injection or drainage. EARS, NOSE AND THROAT: Nose without bleeding or purulent nasal discharge. Mucous membranes pink and moist. No oral lesions noted. NECK: Trachea midline. Supple and not tender, no meningeal signs. Previous permacath site dry CARDIOVASCULAR: Regular rate and rhythm. No murmurs, rubs or gallops heard RESPIRATORY: Clear to auscultation. Breath sounds equal bilaterally. No rales , wheezing or rhonchi. Decreased BS at the bases. ABDOMEN: Soft, non-tender, nondistended. Bowel sounds present and normoactive. No guarding. No rebound. No organomegaly. : SPC in place, site ok, urine looks ok EXTREMITIES: No clubbing, cyanosis, or edema. No joint effusion. No calf tenderness. Well perfused and warm. NEUROLOGICAL: Awake and alert. Cranial nerves grossly intact. weakness in her BLE. PSYCHIATRIC: Normal affect, calm and cooperative. LINE: PIV ok. Assessment & Plan Remarks IMPRESSION PNA, patient with known MS, C/S with MRSA and PSAE - latest sputum with PSAE - better; last CXR clear UTI, has SPC, C/S with PSAE and Enterococcus - repeat UA better (+) BC with Staph epi, due to CABSI, has permacath - very long bacteremia Multiple sclerosis - on plasmapheresis, currently on hold Known Lupus Renal insufficiency - ?has plateaus - ?due to Abx, interstitial nephritis new fever, source? RECOMMENDATION Follow creatinine Continue Cubicin - follow CPK - anticipated end date Jan 27 2 BC today UA and C/S Monitor temps Monitor progress Give at least 4 weeks IV Abx from date of last (+) BC or removal of permacath Mili Wynn MD Jan 10, 2017 15:05
--- NOTE | 2017-01-10 15:47 | HHI.NPPN ---
Subjective History of Present Illness 61-year-old female with past medical history of fibromyalgia, bipolar disorder, hypertension, lupus, recurrent urinary tract infection and a suprapubic catheter who was admitted with cough and weakness. I was called to see the patient with elevated BUN and creatinine. The patient has history of advanced multiple sclerosis and she has been on weekly plasmapheresis. Additional Remarks Patient is alert, has nausea, no vomiting, still not eating well, clinically same. Review of Systems General Constitutional: Fatigue Respiratory Lungs: SOB, Cough, Sputum, Wheeze Cardiovascular Cardiac: Edema, BLACK Objective Data Data 01/10/17 01/11/17 18:59 06:59 Intake Total 2433 ml Balance 2433 ml IV Total 2433 ml Vital Signs Date Time Temp Pulse Resp B/P (MAP) Pulse Ox O2 Delivery O2 Flow Rate FiO2 01/10/17 12:00 98.4 87 18 153/87 (109) 99 01/10/17 08:00 101.0 116 19 167/90 (115) 94 01/10/17 00:00 100.2 115 20 135/92 (106) 99 01/09/17 20:00 101.4 119 20 177/88 (117) 96 01/09/17 16:00 99.1 103 18 134/74 (94) 95 -: 01/10/17 0657 Microbiology 01/10/17 Aerobic Blood Culture, Received Pending 01/10/17 Anaerobic Blood Culture, Received Pending Physical Exam General Appearance: No Acute Distress, Comfortable Eyes Eye Exam: Pupils Equal Neck Neck Exam: Neck Supple Pulmonary Resp Exam: Crackles, Rhonchi, Sputum, Decreased Bases, Diminished Breath Sounds Cardiology CV Exam: Regular, Normal Sinus Rhythm Gastrointestinal/Abdomen GI Exam: Soft, Non-Tender, Bowel Sounds Present, Distended Extremeties Extremities Exam: Trace Edema Neurologic Neuro Exam: Alert, Awake, Oriented Psychiatric Psych Exam: Appropriate Responses Assessment/Plan Assessment Summary: THONG/Acute Renal Failure Problem List: (1) Essential hypertension ICD Codes: I10 - Essential (primary) hypertension Status: Chronic (2) GERD (gastroesophageal reflux disease) ICD Codes: K21.9 - Gastroesophageal reflux disease Status: Chronic (3) Generalized weakness ICD Codes: R53.1 - Weakness Status: Acute (4) Suprapubic catheter dysfunction ICD Codes: T83.010A - Breakdown (mechanical) of cystostomy catheter, initial encounter Status: Acute (5) Fibromyalgia ICD Codes: M79.7 - Fibromyalgia Status: Chronic (6) Lupus (systemic lupus erythematosus) ICD Codes: M32.9 - Systemic lupus erythematosus, unspecified Status: Chronic (7) THONG (acute kidney injury) ICD Codes: N17.9 - Acute kidney failure, unspecified Plan Still has no proteinuria. Urine out put is much better. BP is stable. Has urine Eosinophils and high Vanco. level. THONG is either due to possible interstitial Nephritis or Tubular damage due to high Vanco level. Continue IVF, avoid Nephrotoxins. Creatinine is improving, now 2.5, K is 3.2, and replaced. Started on Daptomycin, ID is following. Follow the urine out put and BMP. Ivet Foote MD Jan 10, 2017 15:47
[2017-01-10 16:00] VITALS: BP 116/65; PULSE 93; RESP 16; TEMP 97.6; O2SAT 90
[2017-01-10 16:51] LABS: BLOOD, URINE NEG (NEG); GLUCOSE,URINE NEG (NEG); KETONE, URINE NEG (NEG); NITRITE,URINE NEG (NEG); PH, URINE 6.5 (5.0-8.5); URINE COLOR LIGHT-YELLOW (YELLW/STRAW)
[2017-01-10 17:04] LABS: COMMENT (UR) CATH-CULT NOT IND; CULTURE IF INDICATED CATH CULTURE NOT IND
--- NOTE | 2017-01-10 17:10 | PD.CONS ---
History of Present Illness Service Gynecology Consult Requested By Dr. Nava Primary Care Physician John Bloom Jr, MD Diagnoses: History of Present Illness Mrs. Montez is a 61 y/o F admitted for bronchopneumonia and later became septic presents with 3 days of vaginal bleeding. Per nursing report and patient she's had 3 days of dark black/reddish vaginal discharge that has increased in amount each day. Per nursing staff discharge has a foul smell and is very thick. Past surgical history includes a vaginal hysterectomy "many years ago." She has not had a Mendoza catheter during this hospitalization as she has a suprapubic catheter. She currently has no complaints and a complete review of systems otherwise negative. (Erickson Webb MD R2) Review of Systems Genitourinary: COMPLAINS OF: Abnormal vaginal bleeding, Vaginal discharge Except as stated in HPI: all other systems reviewed are Neg (Erickson Webb MD R2) Past Family Social History Allergies: Coded Allergies: adhesive (Unverified Allergy, Severe, Rash, 12/28/16) albuterol (Unverified Allergy, Severe, SORES, 12/28/16) codeine (Unverified Allergy, Severe, SWELLING AND DIFFICULTY BREATHING, ) hydrocodone (Unverified Allergy, Severe, RASH AND SWELLING, 12/28/16) isradipine (Unverified Allergy, Severe, ELEVATED HEART RATE, 12/28/16) methylprednisolone (Unverified Allergy, Severe, Shortness of Breath, ) oxycodone (Unverified Allergy, Severe, ITCHING, 12/28/16) Past Medical History Multiple sclerosis diagnosed in late 2012 requiring plasmapheresis weekly Fibromyalgia Bipolar disorder History of obesity Hypertension Lupus Fibromyalgia Gastroparesis Recurrent UTIs Past Surgical History chronic indwelling suprapubic cath. changed monthly 2004 the patient had C3 through C6 anterior cervical discectomy and arthrodesis for severe cervical stenosis and myelopathy 2008 the patient had again the same diagnosis but had C6-C7 anterior cervical discectomy and arthrodesis 2010 the patient had open reduction, internal fixation of a right ankle fracture Right distal fibula fracture Torn lateral meniscus last year and underwent arthroscopic surgery Laparoscopic cholecystectomy Hysterectomy Suprapubic catheter placement PermCath placement Active Ordered Medications Inpatient Medications Acetaminophen (Ofirmev 1000 Mg/ 100 ml Inj) 1,000 mg Q12H PRN IV headache Last administered on 01/10/17 09:09; Start 01/08/17 at 12:45 Acetaminophen (Tylenol) 650 mg Q4H PRN PO FEVER Last administered on 01/09/17 18:48; Start 01/09/17 at 18:30 Acetylcysteine (Mucomyst 20% Neb) 2 ml Q4HR NEB NEB Last administered on 04:00; Start 01/01/17 at 12:00; Stop 01/05/17 at 11:59; Status DC Albuterol/ Ipratropium (Duoneb Neb) 1 ampule Q4HR NEB PRN NEB SOB/WHEEZING; Start 01/07/17 at 12:00; Stop 01/07/17 at 16:04; Status DC Aspirin (Aspirin) 325 mg DAILY PO Last administered on 01/10/17 09:14; Start at 09:00 Clonidine (Catapres) 0.2 mg Q6H PRN PO SBP above 160 Last administered on 20:14; Start 01/03/17 at 16:45 Daptomycin 650 mg/ Sodium Chloride 100 ml @ 200 mls/hr Q48H IV Last administered on 01/09/17 11:11; Start 01/07/17 at 13:00 Furosemide (Lasix) 40 mg DAILY PO Last administered on 01/04/17 09:57; Start at 09:00; Stop 01/04/17 at 17:37; Status DC Gabapentin (Neurontin) 600 mg BID PO Last administered on 01/10/17 09:13; Start 12/29/16 at 21:00 Guaifenesin (Mucinex Er) 600 mg ONCE ONCE PO Last administered on 12/29/16 15 :29; Start 12/29/16 at 15:00; Stop 12/29/16 at 15:01; Status DC Guaifenesin (Robitussin Liq) 200 mg Q4H PRN PO cough; Start 12/29/16 at 14:15 Heparin Sodium (Porcine) (Heparin Inj) 10,000 units UNSCH IV FLUSH Last administered on 12/30/16 19:09; Start 12/30/16 at 16:00; Stop 12/31/16 at 18:00 ; Status DC Hydromorphone HCl (Dilaudid) 4 mg Q8H PRN PO PAIN over 4 Last administered on 21:31; Start 12/29/16 at 14:15 Hydroxychloroquine Sulfate (Plaquenil) 200 mg BID PO Last administered on 09:13; Start 12/29/16 at 21:00 Imipenem/ Cilastatin Sodium 250 mg/Sodium Chloride 100 ml @ 200 mls/hr ONCE ONCE IV Last administered on 12/29/16 00:22; Start 12/28/16 at 22:00; Stop at 22:29; Status DC Ipratropium Balmorhea (Atrovent Neb) 0.5 mg Q4HR NEB PRN NEB SOB/WHEEZING; Start 01/07/17 at 16:15 Lisinopril (Prinivil) 20 mg DAILY PO Last administered on 01/04/17 09:56; Start 12/30/16 at 09:00; Stop 01/04/17 at 17:37; Status DC Miscellaneous Information SPECIFIC LAB TO BE ... ONCE ONCE .XX Last administered on 01/02/17 05:45; Start 01/02/17 at 05:45; Stop 01/02/17 at 05:46 ; Status DC Nifedipine (Procardia Xl) 60 mg DAILY PO Last administered on 01/10/17 09:13; Start 12/30/16 at 09:00 Nifedipine (Procardia) 30 mg HS PO Last administered on 01/09/17 20:12; Start 12/29/16 at 21:00 Ondansetron HCl (Zofran Inj) 4 mg Q6H PRN IV NAUSEA OR VOMITING Last administered on 01/10/17 05:46; Start 12/29/16 at 07:15 Pantoprazole Sodium (Protonix) 20 mg DAILY PO Last administered on 01/10/17 09: 14; Start 12/30/16 at 09:00 Patient Own Medication PT OWN MED: METHENAM... BID PO Last administered on 09:12; Start 12/29/16 at 21:00; Status Future hold Pharmacy Profile Note 0 ml @ 0 mls/hr UNSCH OTHER ; Start 12/28/16 at 22:45; Stop 01/04/17 at 13:39; Status DC Piperacillin Sod/ Tazobactam Sod 50 ml @ 100 mls/hr Q6H IV Last administered on 01/04/17 09:57; Start 12/28/16 at 23:00; Stop 01/04/17 at 13:39; Status DC Potassium Chloride (KCl) 40 meq ONCE ONCE PO Last administered on 01/10/17 09: 13; Start 01/10/17 at 09:00; Stop 01/10/17 at 09:01; Status DC Sodium Chloride 1,000 ml @ 100 mls/hr Q10H IV Last administered on 01/10/17 15 :58; Start 01/04/17 at 11:15 Vancomycin HCl 1000 mg/Sodium Chloride 250 ml @ 250 mls/hr ONCE ONCE IV Last administered on 12/28/16 22:07; Start 12/28/16 at 21:30; Stop 12/28/16 at 22:29 ; Status DC Vancomycin HCl 2000 mg/Sodium Chloride 520 ml @ 257.5 mls/ hr Q18H IV Last administered on 01/02/17 06:19; Start 12/31/16 at 18:00; Stop 01/04/17 at 13:39 ; Status DC (Erickson Webb MD R2) Physical Exam Vital Signs Vital Signs Date Time Temp Pulse Resp B/P (MAP) Pulse Ox O2 Delivery O2 Flow Rate FiO2 01/10/17 16:00 97.6 93 16 116/65 (82) 90 01/10/17 12:00 98.4 87 18 153/87 (109) 99 01/10/17 08:00 101.0 116 19 167/90 (115) 94 01/10/17 00:00 100.2 115 20 135/92 (106) 99 01/09/17 20:00 101.4 119 20 177/88 (117) 96 Physical Exam GENERAL: Well-nourished, well-developed patient. No acute distress. SKIN: Warm and dry. No rash. EYES: No scleral icterus. No injection or drainage. PERRLA. EOMI. HENT: Normocephalic. Atraumatic. MMM. NECK: No visible JVD or lymphadenopathy. CARDIOVASCULAR: Warm and well perfused. RESPIRATORY: Normal respiratory effort. GASTROINTESTINAL: Abdomen nondistended. MUSCULOSKELETAL: Strength grossly WNL. BACK: Without obvious deformity. NEURO/PSYCH: Afocal. Awake, alert, and oriented x3. UROGENITAL: Exam completed in the presence of nursing staff as [employer]. Normally developed external genitalia with no eruptions. No abnormal findings along the external genital tract (no masses, lacerations, ulcerations, friable areas, discharge, or foreign body). No foul smell. Vaginal browning inspected with small 1 cm laceration/excoriation with dark red blood clot adhered at the 10 to 11 o'clock position which is likely the source of bleeding. No signs of infection upon speculum exam of the vaginal vault. No discharge or active bleeding appreciated at this time. Laboratory Laboratory Tests Test 01/10/17 06:57 01/10/17 16:25 Blood Urea Nitrogen 18 Creatinine 2.56 Random Glucose 130 Calcium Level 9.1 Magnesium Level 1.8 Sodium Level 143 Potassium Level 3.2 Chloride Level 111 Carbon Dioxide Level 20.8 Anion Gap 11 Estimat Glomerular Filtration Rate 23 Date/Time Source Procedure Growth Status 01/10/17 06:57 Blood Peripheral Aerobic Blood Culture Pending Received 01/10/17 06:57 Blood Peripheral Anaerobic Blood Culture Pending Received 01/06/17 05:20 Stool Stool Gram Stain - Final Complete 12/29/16 09:10 Sputum Expectorated Sputum Gram Stain - Final Complete 12/29/16 09:10 Sputum Culture - Final Pseudomonas Aeruginosa Complete 12/28/16 21:05 Urine Catheterized Urine Urine Culture - Final Pseudomonas Aeruginosa Enterococcus Faecalis Complete 12/31/16 14:03 Catheter Tip Vas Cath Wound Culture - Final Staphylococcus Epidermidis Complete (Erickson Webb MD R2) Result Diagram: 01/10/17 0657 Assessment and Plan Problem List: (1) Vaginal bleeding ICD Codes: N93.9 - Abnormal uterine and vaginal bleeding, unspecified Status: Acute Plan: Patient presenting with 3 days of vaginal bleeding with history of hysterectomy via vagina. 1. Vaginal Bleeding -Exam concerning for small 1 cm laceration of the right vaginal wall which is likely the source of bleeding; no signs of active infection -Patient s/p hysterectomy without cervix; no signs of possible malignancy -Patient currently without complaints -CBC: Pending -Continue to monitor Gynecological service will sign off at this time, please reconsult with any further questions. SDW: Dr. Yu, Dr. Brown Discharge Planning Per Primary (Erickson Webb MD R2) Physician Attestation Patient seen and evaluated with resident under direct supervision, agree with assessment and plan. (Jam Yu MD) Erickson Webb MD R2 Jan 10, 2017 17:10 Jam Yu MD Jan 12, 2017 10:43
[2017-01-10] MEDS: HYDROmorphone HCL 4 MG TAB PO PRN (18:18)
[2017-01-10 20:00] VITALS: BP 136/87; PULSE 95; RESP 19; TEMP 99.1; O2SAT 96
[2017-01-10] MEDS: NIFEdipine 10 MG CAP PO SCH (21:43)
[2017-01-10 23:56] LABS: AUTOMATED NEUTROPHIL # 6.6 TH/MM3 (1.8-7.7); BASOPHIL # 0.1 TH/MM3 (0-0.2); BASOPHIL % 0.6 % (0.0-2.0); EOSINOPHIL # 0.6 TH/MM3 (0-0.4); EOSINOPHIL % 6.5 % (0.0-4.0); HEMATOCRIT 26.5 % (35.0-46.0); HEMO FLAGS DIFF FINAL; LYMPH % 13.1 % (9.0-44.0); LYMPHOCYTE # 1.3 TH/MM3 (1.0-4.8); MEAN CELL VOLUME 82.2 FL (80.0-100.0); MEAN CORPUSCULAR HEMOGLOBIN 26.5 PG (27.0-34.0); MEAN CORPUSCULAR HGB CONC 32.2 % (32.0-36.0); MONO % 11.2 % (0.0-8.0); NEUT % 68.6 % (16.0-70.0); PLATELET COUNT 307 TH/MM3 (150-450); RED BLOOD COUNT 3.23 MIL/MM3 (4.00-5.30); RED CELL DISTRIBUTION WIDTH 15.6 % (11.6-17.2); WHITE BLOOD COUNT 9.6 TH/MM3 (4.0-11.0)
[2017-01-11] VITALS (7 sets, daily range): BP systolic 137–160; BP diastolic 70–88; PULSE 96–106; RESP 17–20; TEMP 98.2–100.7; O2SAT 96–100
[2017-01-11] MEDS: HYDROmorphone HCL 4 MG TAB PO PRN (03:27)
[2017-01-11] MEDS: RESP: IPRATROPIUM 0.5 MG/2.5 ML NEB NEB PRN (04:51)
[2017-01-11 07:19] LABS: AUTOMATED NEUTROPHIL # 5.9 TH/MM3 (1.8-7.7); BASOPHIL # 0.1 TH/MM3 (0-0.2); BASOPHIL % 0.8 % (0.0-2.0); EOSINOPHIL # 0.6 TH/MM3 (0-0.4); EOSINOPHIL % 6.8 % (0.0-4.0); HEMATOCRIT 27.5 % (35.0-46.0); HEMO FLAGS DIFF FINAL; LYMPH % 16.7 % (9.0-44.0); LYMPHOCYTE # 1.5 TH/MM3 (1.0-4.8); MEAN CELL VOLUME 82.9 FL (80.0-100.0); MEAN CORPUSCULAR HEMOGLOBIN 27.4 PG (27.0-34.0); MEAN CORPUSCULAR HGB CONC 33.1 % (32.0-36.0); MONO % 9.3 % (0.0-8.0); NEUT % 66.4 % (16.0-70.0); PLATELET COUNT 312 TH/MM3 (150-450); RED BLOOD COUNT 3.31 MIL/MM3 (4.00-5.30); RED CELL DISTRIBUTION WIDTH 15.7 % (11.6-17.2); WHITE BLOOD COUNT 8.9 TH/MM3 (4.0-11.0)
[2017-01-11 07:33] LABS: BICARBONATE 21.8 MEQ/L (21.0-32.0); MAGNESIUM 1.6 MG/DL (1.5-2.5); POTASSIUM 3.5 MEQ/L (3.5-5.1)
[2017-01-11] MEDS: PANTOPRAZOLE SOD 20 MG DELAYED RELEASE TAB PO SCH (08:06)
[2017-01-11] MEDS: guaiFENesin E.R. 600 MG TAB PO SCH ×2 (08:06→21:04)
[2017-01-11] MEDS: METHENAMINE HIPPURATE 1 GM PO SCH ×2 (08:06→21:04)
[2017-01-11] MEDS: HYDROXYCHLOROQUINE SULFATE 200 MG TAB PO SCH ×2 (08:06→21:04)
[2017-01-11] MEDS: ASPIRIN 325 MG TAB PO SCH (08:06)
[2017-01-11] MEDS: GABAPENTIN 300 MG CAP PO SCH ×3 (08:06→21:04)
[2017-01-11] MEDS: NIFEdipine 60 MG SUSTAINED RELEASE TAB PO SCH (08:06)
[2017-01-11] MEDS: cloNIDine HCL 0.2 MG TAB PO SCH ×3 (08:06→17:05)
[2017-01-11] MEDS: ONDANSETRON HCL 4 MG/2 ML VIAL IV PRN (08:12)
--- NOTE | 2017-01-11 08:28 | HHI.PR ---
Subjective Remarks Pt seems to be in better spirits this morning. She didn't want to take her Clonidine last night because her systolic BP was around 116 and she didn't want her BP to bottom out. Pt states that last night she had some sinus congestions and a slight nonproductive cough but feels well this morning. Denies any SOB, abd pain, vomiting, diarrhea, or constipation. She still has a very poor appetite but has been drinking Boost 2-3 times per day. Objective Vitals Vital Signs Date Time Temp Pulse Resp B/P (MAP) Pulse Ox O2 Delivery O2 Flow Rate FiO2 01/11/17 08:00 98.3 101 18 137/82 (100) 98 01/11/17 05:00 99 01/11/17 00:25 16 01/11/17 00:00 99.5 106 20 145/88 (107) 100 01/10/17 20:00 99.1 95 19 136/87 (103) 96 01/10/17 16:00 97.6 93 16 116/65 (82) 90 01/10/17 12:00 98.4 87 18 153/87 (109) 99 Result Diagram: 01/11/17 0616 01/11/17 0616 Other Results Laboratory Tests Test 01/10/17 06:57 01/10/17 16:25 01/10/17 23:40 01/11/17 06:16 Blood Urea Nitrogen 18 MG/DL 18 MG/DL Creatinine 2.56 MG/DL 2.03 MG/DL Random Glucose 130 MG/DL 102 MG/DL Calcium Level 9.1 MG/DL 8.4 MG/DL Magnesium Level 1.8 MG/DL 1.6 MG/DL Sodium Level 143 MEQ/L 141 MEQ/L Potassium Level 3.2 MEQ/L 3.5 MEQ/L Chloride Level 111 MEQ/L 111 MEQ/L Carbon Dioxide Level 20.8 MEQ/L 21.8 MEQ/L Anion Gap 11 MEQ/L 8 MEQ/L Estimat Glomerular Filtration Rate 23 ML/MIN 30 ML/MIN Urine Color LIGHT-YELLOW Urine Turbidity CLEAR Urine pH 6.5 Urine Specific [place] 1.006 Urine Protein NEG mg/dL Urine Glucose (UA) NEG mg/dL Urine Ketones NEG mg/dL Urine Occult Blood NEG Urine Nitrite NEG Urine Bilirubin NEG Urine Urobilinogen LESS THAN 2.0 MG/DL Urine Leukocyte Esterase SMALL Urine WBC 5 /hpf Microscopic Urinalysis Comment CATH-CULT NOT IND White Blood Count 9.6 TH/MM3 8.9 TH/MM3 Red Blood Count 3.23 MIL/MM3 3.31 MIL/MM3 Hemoglobin 8.5 GM/DL 9.1 GM/DL Hematocrit 26.5 % 27.5 % Mean Corpuscular Volume 82.2 FL 82.9 FL Mean Corpuscular Hemoglobin 26.5 PG 27.4 PG Mean Corpuscular Hemoglobin Concent 32.2 % 33.1 % Red Cell Distribution Width 15.6 % 15.7 % Platelet Count 307 TH/MM3 312 TH/MM3 Mean Platelet Volume 6.8 FL 7.7 FL Neutrophils (%) (Auto) 68.6 % 66.4 % Lymphocytes (%) (Auto) 13.1 % 16.7 % Monocytes (%) (Auto) 11.2 % 9.3 % Eosinophils (%) (Auto) 6.5 % 6.8 % Basophils (%) (Auto) 0.6 % 0.8 % Neutrophils # (Auto) 6.6 TH/MM3 5.9 TH/MM3 Lymphocytes # (Auto) 1.3 TH/MM3 1.5 TH/MM3 Monocytes # (Auto) 1.1 TH/MM3 0.8 TH/MM3 Eosinophils # (Auto) 0.6 TH/MM3 0.6 TH/MM3 Basophils # (Auto) 0.1 TH/MM3 0.1 TH/MM3 CBC Comment DIFF FINAL DIFF FINAL Differential Comment Imaging Last Impressions Central Venous Line 12/31/16 0000 Signed Impressions: Service Date/Time: Saturday, December 31, 2016 00:00 - CONCLUSION: Uncomplicated Permcath removal. Marky Cid MD Chest X-Ray 12/28/162045 Signed Impressions: Service Date/Time: Wednesday, December 28, 2016 21:00 - CONCLUSION: 1. Right basilar streakiness consistent with atelectasis and/or mild infiltrate. Clinical correlation is recommended. Manuel Adam MD Objective Remarks General: NAD, AAOx3 Chest: CTA Cardiac: Regular Abd: +BS, soft ND/NT Ext: No edema A/P Problem List: (1) Sepsis ICD Codes: A41.9 - Sepsis, unspecified organism Status: Acute Plan: - Pt is 61 yo woman with advance multiple sclerosis. She has been receiving weekly plasmapheresis on Tuesdays - She presented to the ED with complaints of productive cough that began around 2 - 3 weeks ago. Received around 11 days Levaquin initially but no improvement. - Pt was seen in ED and had sputum and blood cx on 12/24 and was diagnosed with bronchitis then discharged. - Pt was called back to ED 12/28 for positive sputum MRSA/pseudomonas and blood cx staph epi 2/ - Pt says her hands were also getting weak and MS starting to flare. She has also missed her last 2 treatments. - SPC was last changed around 12/19 per the pt. It is changed monthly per the pt. - blood Cx (12/30/16) - Staph Epi 3/4 bottles - urine cx (12/28) --> pseudomonas, enterococcus - sputum cx (12/29) --> pseudomonas - blood cx (12/30) from permcath - staph epi - PermCath removed (12/31/16) d/t infection. tip cx --> less than 15 CFU - repeat blood cx (01/01/17) --> NGTD - repeat Blood Cx (01/02/17) --> NGTD - Echocardiogram (12/31/16) --> no vegetations noted, EF 55-60% - SHADY (01/03/17) --> NO vegetation - hold off on placing new PermCath until bacteremia resolved - so no plasmapheresis at this time - In the ED pt was given Primaxin as best ALEJANDRINA. - Vanco (12/29 - 01/02) Vanc stopped due to high levels and worsening renal function. - Zosyn and (12/29 - 01/04) - Daptomycin started on 01/07 - Vanco levels decreasing- Daptomycin started to complete therapy for bacteremia. - Cont prn duonebs and Mucomyst - 01/04/17 repeat CXR--> no acute disease - Pt had fevers overnight on 01/10 - Repeat blood cultures drawn on 01/10 are pending. 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 No evidence of infection. - Pt has been afebrile last night and this morning. - PT and OT - Supportive care - DVT prophylaxis (2) Bronchopneumonia ICD Codes: J18.0 - Bronchopneumonia, unspecified organism Plan: - Improved - See above. (3) THONG (acute kidney injury) ICD Codes: N17.9 - Acute kidney failure, unspecified Plan: - THONG due to AIN from vanco vs zosyn - Vancomycin and Zosyn DC'd 01/04/17 - Appreciate nephrology input - Cr has been improving, down to 2.03 on 01/11 - Pt with good urine output - Monitor labs (4) Multiple sclerosis ICD Codes: G35 - Multiple sclerosis Status: Chronic Plan: - Pt has missed her last two plasmapheresis sessions prior to admission - Pt reports weakness in the UE - see above (5) Chronic indwelling Mendoza catheter ICD Codes: Z92.89 - Personal history of other medical treatment Status: Chronic Plan: - SPC last changed on 12/19 - Repeat UA on 01/10 was negative (6) Essential hypertension ICD Codes: I10 - Essential (primary) hypertension Status: Chronic Plan: - Controlled - Continue Clonidine 0.2 mg Q6H PRN SBP >160, Nifedipine 60 mg PO daily, Nifedipine 30 mg PO QHS - Monitor BP - Lisinopril 20mg daily held due to THONG (7) Fibromyalgia ICD Codes: M79.7 - Fibromyalgia Status: Chronic (8) Lupus (systemic lupus erythematosus) ICD Codes: M32.9 - Systemic lupus erythematosus, unspecified Status: Chronic (9) Altered mental status ICD Codes: R41.82 - Altered mental status, unspecified Plan: - Improving - CT head ordered and reviewed no acute finding - see THONG above Assessment and Plan Patient examined. Assessment and plan formulated with Katherin Nava PA-C. I agree with the above. nosocomial pna resolved line sepsis. cont abx recurrent fever. better. f/u cx's vaginal bleed from Laceration. overall pt looks stronger today and eating thong from AIN related to abx...improving. Katherin Nava Jan 11, 2017 08:28 Alex Morales MD Jan 11, 2017 12:09
[2017-01-11] MEDS: DAPTOmycin INJ 650 MG in SODIUM CHLORIDE 0.9% INJ 100 ML IV SCH (13:17)
[2017-01-11] MEDS: SODIUM CHLOR 0.9% 1000 ML INJ 1,000 ML IV SCH ×2 (13:18→23:15)
--- NOTE | 2017-01-11 14:23 | HHI.NPPN ---
Subjective History of Present Illness 61-year-old female with past medical history of fibromyalgia, bipolar disorder, hypertension, lupus, recurrent urinary tract infection and a suprapubic catheter who was admitted with cough and weakness. I was called to see the patient with elevated BUN and creatinine. The patient has history of advanced multiple sclerosis and she has been on weekly plasmapheresis. Additional Remarks Patient is alert, has nausea, no vomiting, still not eating well, clinically same. Review of Systems General Constitutional: Fatigue Respiratory Lungs: SOB, Cough, Sputum, Wheeze Cardiovascular Cardiac: Edema, BLACK Objective Data Data Vital Signs Date Time Temp Pulse Resp B/P (MAP) Pulse Ox O2 Delivery O2 Flow Rate FiO2 01/11/17 08:00 98.3 101 18 137/82 (100) 98 01/11/17 05:00 99 01/11/17 00:25 16 01/11/17 00:00 99.5 106 20 145/88 (107) 100 01/10/17 20:00 99.1 95 19 136/87 (103) 96 01/10/17 16:00 97.6 93 16 116/65 (82) 90 -: 01/11/17 0616 01/11/17 0616 Microbiology 01/11/17 Aerobic Blood Culture, Received Pending 01/11/17 Anaerobic Blood Culture, Received Pending 01/10/17 Aerobic Blood Culture - Preliminary, Resulted NO GROWTH IN 1 DAY 01/10/17 Anaerobic Blood Culture - Preliminary, Resulted NO GROWTH IN 1 DAY Physical Exam General Appearance: No Acute Distress, Comfortable Eyes Eye Exam: Pupils Equal Neck Neck Exam: Neck Supple Pulmonary Resp Exam: Crackles, Rhonchi, Sputum, Decreased Bases, Diminished Breath Sounds Cardiology CV Exam: Regular, Normal Sinus Rhythm Gastrointestinal/Abdomen GI Exam: Soft, Non-Tender, Bowel Sounds Present, Distended Extremeties Extremities Exam: Trace Edema Neurologic Neuro Exam: Alert, Awake, Oriented Psychiatric Psych Exam: Appropriate Responses Assessment/Plan Assessment Summary: THONG/Acute Renal Failure Problem List: (1) Essential hypertension ICD Codes: I10 - Essential (primary) hypertension Status: Chronic (2) GERD (gastroesophageal reflux disease) ICD Codes: K21.9 - Gastroesophageal reflux disease Status: Chronic (3) Generalized weakness ICD Codes: R53.1 - Weakness Status: Acute (4) Suprapubic catheter dysfunction ICD Codes: T83.010A - Breakdown (mechanical) of cystostomy catheter, initial encounter Status: Acute (5) Fibromyalgia ICD Codes: M79.7 - Fibromyalgia Status: Chronic (6) Lupus (systemic lupus erythematosus) ICD Codes: M32.9 - Systemic lupus erythematosus, unspecified Status: Chronic (7) THONG (acute kidney injury) ICD Codes: N17.9 - Acute kidney failure, unspecified Plan Still has no proteinuria. Urine out put is much better. BP is stable. Has urine Eosinophils and high Vanco. level. THONG is either due to possible interstitial Nephritis or Tubular damage due to high Vanco level. Continue IVF, avoid Nephrotoxins. Creatinine is improving, now 2 K is 3.5, Started on Daptomycin, ID is following. Follow the urine out put and BMP. Dr. Foote to follow next week Cindy Donald MD Jan 11, 2017 14:23
[2017-01-11] MEDS: NIFEdipine 10 MG CAP PO SCH (21:04)
[2017-01-11] MEDS: ACETAMINOPHEN 325 MG TAB PO PRN (21:04)
[2017-01-11] MEDS: cloNIDine HCL 0.2 MG TAB PO PRN (21:33)
[2017-01-12] VITALS: BP 109/72; PULSE 107; RESP 20; TEMP 100.2; O2SAT 96
[2017-01-12 08:00] VITALS: BP 136/76; PULSE 104; RESP 16; TEMP 99.9; O2SAT 96
[2017-01-12] MEDS: PANTOPRAZOLE SOD 20 MG DELAYED RELEASE TAB PO SCH (08:30)
--- NOTE | 2017-01-12 08:30 | HHI.PR ---
Subjective Remarks Pt rather tearful this morning and worried about having another VasCath placed in the future but concerned that if she doesn't she won't be able to get her plasmapheresis again. No cough or congestion. Denies any abd pain or chest pain. She is somewhat nauseated today Pt reportedly had a loose stool this morning. Objective Vitals Vital Signs Date Time Temp Pulse Resp B/P (MAP) Pulse Ox O2 Delivery O2 Flow Rate FiO2 01/12/17 08:00 99.9 104 16 136/76 (96) 96 01/12/17 00:00 100.2 107 20 109/72 (84) 96 01/11/17 20:00 100.7 96 20 160/77 (104) 98 01/11/17 16:00 98.2 101 17 152/70 (97) 96 01/11/17 15:26 100 21 01/11/17 12:00 98.3 104 18 142/80 (100) 100 Result Diagram: 01/11/17 0616 01/11/17 0616 Other Results Laboratory Tests Test 01/10/17 16:25 01/10/17 23:40 01/11/17 06:16 Urine Color LIGHT-YELLOW Urine Turbidity CLEAR Urine pH 6.5 Urine Specific [place] 1.006 Urine Protein NEG mg/dL Urine Glucose (UA) NEG mg/dL Urine Ketones NEG mg/dL Urine Occult Blood NEG Urine Nitrite NEG Urine Bilirubin NEG Urine Urobilinogen LESS THAN 2.0 MG/DL Urine Leukocyte Esterase SMALL Urine WBC 5 /hpf Microscopic Urinalysis Comment CATH-CULT NOT IND White Blood Count 9.6 TH/MM3 8.9 TH/MM3 Red Blood Count 3.23 MIL/MM3 3.31 MIL/MM3 Hemoglobin 8.5 GM/DL 9.1 GM/DL Hematocrit 26.5 % 27.5 % Mean Corpuscular Volume 82.2 FL 82.9 FL Mean Corpuscular Hemoglobin 26.5 PG 27.4 PG Mean Corpuscular Hemoglobin Concent 32.2 % 33.1 % Red Cell Distribution Width 15.6 % 15.7 % Platelet Count 307 TH/MM3 312 TH/MM3 Mean Platelet Volume 6.8 FL 7.7 FL Neutrophils (%) (Auto) 68.6 % 66.4 % Lymphocytes (%) (Auto) 13.1 % 16.7 % Monocytes (%) (Auto) 11.2 % 9.3 % Eosinophils (%) (Auto) 6.5 % 6.8 % Basophils (%) (Auto) 0.6 % 0.8 % Neutrophils # (Auto) 6.6 TH/MM3 5.9 TH/MM3 Lymphocytes # (Auto) 1.3 TH/MM3 1.5 TH/MM3 Monocytes # (Auto) 1.1 TH/MM3 0.8 TH/MM3 Eosinophils # (Auto) 0.6 TH/MM3 0.6 TH/MM3 Basophils # (Auto) 0.1 TH/MM3 0.1 TH/MM3 CBC Comment DIFF FINAL DIFF FINAL Differential Comment Blood Urea Nitrogen 18 MG/DL Creatinine 2.03 MG/DL Random Glucose 102 MG/DL Calcium Level 8.4 MG/DL Magnesium Level 1.6 MG/DL Sodium Level 141 MEQ/L Potassium Level 3.5 MEQ/L Chloride Level 111 MEQ/L Carbon Dioxide Level 21.8 MEQ/L Anion Gap 8 MEQ/L Estimat Glomerular Filtration Rate 30 ML/MIN Imaging Last Impressions Central Venous Line 12/31/16 0000 Signed Impressions: Service Date/Time: Saturday, December 31, 2016 00:00 - CONCLUSION: Uncomplicated Permcath removal. Marky Cid MD Chest X-Ray 12/28/162045 Signed Impressions: Service Date/Time: Wednesday, December 28, 2016 21:00 - CONCLUSION: 1. Right basilar streakiness consistent with atelectasis and/or mild infiltrate. Clinical correlation is recommended. Manuel Adam MD Objective Remarks General: NAD, AAOx3 Chest: CTA Cardiac: Regular Abd: +BS, soft ND/NT Ext: No edema A/P Problem List: (1) Sepsis ICD Codes: A41.9 - Sepsis, unspecified organism Status: Acute Plan: - Pt is 61 yo woman with advance multiple sclerosis. She has been receiving weekly plasmapheresis on Tuesdays - She presented to the ED with complaints of productive cough that began around 2 - 3 weeks ago. Received around 11 days Levaquin initially but no improvement. - Pt was seen in ED and had sputum and blood cx on 12/24 and was diagnosed with bronchitis then discharged. - Pt was called back to ED 12/28 for positive sputum MRSA/pseudomonas and blood cx staph epi 2/4 - Pt says her hands were also getting weak and MS starting to flare. She has also missed her last 2 treatments. - SPC was last changed around 12/19 per the pt. It is changed monthly per the pt. - blood Cx (12/30/16) - Staph Epi 3/4 bottles - urine cx (12/28) --> pseudomonas, enterococcus - sputum cx (12/29) --> pseudomonas - blood cx (12/30) from permcath - staph epi - PermCath removed (12/31/16) d/t infection. tip cx --> less than 15 CFU - repeat blood cx (01/01/17) --> NGTD - repeat Blood Cx (01/02/17) --> NGTD - Echocardiogram (12/31/16) --> no vegetations noted, EF 55-60% - SHADY (01/03/17) --> NO vegetation - hold off on placing new PermCath until bacteremia resolved - so no plasmapheresis at this time - In the ED pt was given Primaxin as best ALEJANDRINA. - Vanco (12/29 - 01/02) Vanc stopped due to high levels and worsening renal function. - Zosyn and (12/29 - 01/04) - Daptomycin started on 01/07 - Vanco levels decreasing- Daptomycin started to complete therapy for bacteremia. - Cont prn duonebs and Mucomyst - 01/04/17 repeat CXR--> no acute disease - Pt had fevers overnight on 01/10 - Repeat blood cultures drawn on 01/10 with no growth x 1 day. 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 No evidence of infection. - Pt had fever this morning with Tmax 100.2 and she reportedly had a liquid BM early this morning. - If any further liquid stools, nursing staff instructed to send stools for C. diff. - PT and OT - Supportive care - DVT prophylaxis (2) Bronchopneumonia ICD Codes: J18.0 - Bronchopneumonia, unspecified organism Plan: - Improved - See above. (3) THONG (acute kidney injury) ICD Codes: N17.9 - Acute kidney failure, unspecified Plan: - THONG due to AIN from vanco vs zosyn - Vancomycin and Zosyn DC'd 01/04/17 - [facility] nephrology input - Cr has been improving, down to 2.03 on 01/11 - Pt with good urine output - Monitor labs (4) Multiple sclerosis ICD Codes: G35 - Multiple sclerosis Status: Chronic Plan: - Pt has missed her last two plasmapheresis sessions prior to admission - Pt reports weakness in the UE - see above (5) Chronic indwelling Mendoza catheter ICD Codes: Z92.89 - Personal history of other medical treatment Status: Chronic Plan: - SPC last changed on 12/19 - Repeat UA on 01/10 was negative (6) Essential hypertension ICD Codes: I10 - Essential (primary) hypertension Status: Chronic Plan: - Controlled - Continue Clonidine 0.2 mg Q6H PRN SBP >160, Nifedipine 60 mg PO daily, Nifedipine 30 mg PO QHS - Monitor BP - Lisinopril 20mg daily held due to THONG (7) Fibromyalgia ICD Codes: M79.7 - Fibromyalgia Status: Chronic (8) Lupus (systemic lupus erythematosus) ICD Codes: M32.9 - Systemic lupus erythematosus, unspecified Status: Chronic (9) Altered mental status ICD Codes: R41.82 - Altered mental status, unspecified Plan: - Improving - CT head ordered and reviewed no acute finding - see THONG above Assessment and Plan Patient examined. Assessment and plan formulated with Katherin Nava PA-C. I agree with the above. line sepsis. repeat blood cx pending. cont abx. ID following. plasmapheresis for MS on hold. will need snf. vaginal bleed. lac identified. stable thong[facility] improving daily Katherin Nava Jan 12, 2017 08:30 Alex Morales MD Jan 12, 2017 10:51
[2017-01-12] MEDS: cloNIDine HCL 0.2 MG TAB PO SCH ×3 (08:31→18:05)
[2017-01-12] MEDS: METHENAMINE HIPPURATE 1 GM PO SCH ×2 (08:32→21:19)
[2017-01-12] MEDS: GABAPENTIN 300 MG CAP PO SCH ×3 (08:32→21:18)
[2017-01-12] MEDS: NIFEdipine 60 MG SUSTAINED RELEASE TAB PO SCH (08:32)
[2017-01-12] MEDS: ASPIRIN 325 MG TAB PO SCH (08:33)
[2017-01-12] MEDS: HYDROXYCHLOROQUINE SULFATE 200 MG TAB PO SCH ×2 (08:34→21:19)
[2017-01-12] MEDS: guaiFENesin E.R. 600 MG TAB PO SCH ×2 (08:34→21:17)
[2017-01-12] MEDS: ONDANSETRON HCL 4 MG/2 ML VIAL IV PRN (08:35)
[2017-01-12] MEDS: SODIUM CHLOR 0.9% 1000 ML INJ 1,000 ML IV SCH ×3 (09:15→21:20)
[2017-01-12] MEDS: ACETAMINOPHEN 325 MG TAB PO PRN ×2 (09:38→13:07)
[2017-01-12 12:00] VITALS: BP 131/79; PULSE 104; RESP 17; TEMP 100.1; O2SAT 95
[2017-01-12 12:43] LABS: BICARBONATE 21.5 MEQ/L (21.0-32.0); MAGNESIUM 1.5 MG/DL (1.5-2.5); POTASSIUM 3.2 MEQ/L (3.5-5.1)
[2017-01-12] MEDS ORDERED: POTASSIUM CHLORIDE 20 MEQ CONTROLLED RELEASE TAB PO ONE (13:30)
[2017-01-12 16:00] VITALS: BP 109/60; PULSE 95; RESP 17; TEMP 98.8; O2SAT 95
[2017-01-12 20:36] VITALS: BP 118/65; PULSE 90; RESP 16; TEMP 97.4; O2SAT 96
[2017-01-12] MEDS: NIFEdipine 10 MG CAP PO SCH (21:31)
[2017-01-13 00:20] VITALS: BP 119/71; PULSE 102; RESP 18; TEMP 100; O2SAT 94
[2017-01-13] MEDS: ONDANSETRON HCL 4 MG/2 ML VIAL IV PRN ×2 (02:16→08:11)
[2017-01-13 05:50] LABS: AUTOMATED NEUTROPHIL # 5.7 TH/MM3 (1.8-7.7); BASOPHIL % 0.5 % (0.0-2.0); EOSINOPHIL # 0.7 TH/MM3 (0-0.4); HEMATOCRIT 27.4 % (35.0-46.0); HEMO FLAGS DIFF FINAL; LYMPH % 15.9 % (9.0-44.0); LYMPHOCYTE # 1.4 TH/MM3 (1.0-4.8); MEAN CELL VOLUME 81.2 FL (80.0-100.0); MEAN CORPUSCULAR HEMOGLOBIN 27.2 PG (27.0-34.0); MEAN CORPUSCULAR HGB CONC 33.5 % (32.0-36.0); MONO % 11.8 % (0.0-8.0); NEUT % 63.8 % (16.0-70.0); PLATELET COUNT 339 TH/MM3 (150-450); RED BLOOD COUNT 3.38 MIL/MM3 (4.00-5.30); RED CELL DISTRIBUTION WIDTH 16.1 % (11.6-17.2)
[2017-01-13 06:11] LABS: BICARBONATE 22.1 MEQ/L (21.0-32.0); MAGNESIUM 1.8 MG/DL (1.5-2.5); POTASSIUM 3.3 MEQ/L (3.5-5.1)
[2017-01-13 08:00] VITALS: BP 146/85; PULSE 107; RESP 18; TEMP 99.7; O2SAT 94
[2017-01-13] MEDS: SODIUM CHLOR 0.9% 1000 ML INJ 1,000 ML IV SCH ×2 (08:01→19:18)
[2017-01-13] MEDS: ACETAMINOPHEN 1000 MG/100 ML VIAL IV PRN ×2 (08:03→20:18)
[2017-01-13] MEDS: METHENAMINE HIPPURATE 1 GM PO SCH ×2 (08:08→20:17)
[2017-01-13] MEDS: guaiFENesin E.R. 600 MG TAB PO SCH ×2 (08:09→20:17)
[2017-01-13] MEDS: GABAPENTIN 300 MG CAP PO SCH ×3 (08:09→20:17)
[2017-01-13] MEDS: cloNIDine HCL 0.2 MG TAB PO SCH ×3 (08:10→17:22)
[2017-01-13] MEDS: NIFEdipine 60 MG SUSTAINED RELEASE TAB PO SCH (08:10)
[2017-01-13] MEDS: PANTOPRAZOLE SOD 20 MG DELAYED RELEASE TAB PO SCH (08:10)
[2017-01-13] MEDS: HYDROXYCHLOROQUINE SULFATE 200 MG TAB PO SCH ×2 (08:11→20:17)
[2017-01-13] MEDS: ASPIRIN 325 MG TAB PO SCH (08:11)
--- NOTE | 2017-01-13 10:29 | HHI.IDPN ---
Subjective Subjective Remarks Patient is a 61 year old female, with known MS, admitted to the hospital after her BC came back (+) and he sputum C/S with MRSA and PSAE. Patient states that she has been sick since the early part of December. She had generalized malaise, and was having some productive cough. It was initially white in color and then it became yellow. She also has had some diarrhea in the beginning which has resolved, as well as vomiting. She continues to have vomiting at least 3 times a day but since she's been taking Zofran that has improved. She's had intermittent fevers the highest has been about 101. Patient gets plasmapheresis every Friday, and she missed a treatment about 2 weeks ago. She went for her treatment on December 24, and at that time she had mentioned that she was having some coughing. She was instructed to go the emergency room , and in the ER she was afebrile. And her chest x-ray did not show any consolidation. 2 blood cultures were done at that time as well as the sputum. Prior to that visit patient has been taking Levaquin as prescribed by her primary care physician. Patient stated that she was given some cough medication and was discharge. Her blood cultures are now reported as growing staph epidermides, and her sputum with MRSA and Pseudomonas. Patient was called back in to the hospital and admitted. Since admission she has not had any fever. She is still coughing up some yellowish phlegm. She gets some dyspnea on exertion. She has occasional pain on her chest when she has a lot of coughing episodes. Her chest x-ray now is showing some basilar infiltrates. Notes reviewed Continues to have fevers this weekend No new complaint Not coughing, no other resp complaints No N/V NO diarrhea Repeat UA ok 2 BC 01/10 negative No rash or itching last CXR 01/04 clear Creatinine improving Good UO No new (+) BC CPK ok Antibiotics Cubicin Lines PIV Permacath - removed Past Medical History Multiple sclerosis diagnosed in late 2012 requiring plasmapheresis weekly Fibromyalgia Bipolar disorder History of obesity Hypertension Lupus Fibromyalgia Gastroparesis Recurrent UTIs Past Surgical History chronic indwelling suprapubic cath. changed monthly 2004 the patient had C3 through C6 anterior cervical discectomy and arthrodesis for severe cervical stenosis and myelopathy 2008 the patient had again the same diagnosis but had C6-C7 anterior cervical discectomy and arthrodesis 2010 the patient had open reduction, internal fixation of a right ankle fracture Right distal fibula fracture Torn lateral meniscus last year and underwent arthroscopic surgery Laparoscopic cholecystectomy Hysterectomy Suprapubic catheter placement PermCath placement Allergies: Coded Allergies: adhesive (Unverified Allergy, Severe, Rash, 12/28/16) albuterol (Unverified Allergy, Severe, SORES, 12/28/16) codeine (Unverified Allergy, Severe, SWELLING AND DIFFICULTY BREATHING, ) hydrocodone (Unverified Allergy, Severe, RASH AND SWELLING, 12/28/16) isradipine (Unverified Allergy, Severe, ELEVATED HEART RATE, 12/28/16) methylprednisolone (Unverified Allergy, Severe, Shortness of Breath, ) oxycodone (Unverified Allergy, Severe, ITCHING, 12/28/16) Objective . Vital Signs Date Time Temp Pulse Resp B/P (MAP) Pulse Ox O2 Delivery O2 Flow Rate FiO2 01/13/17 08:00 99.7 107 18 146/85 (105) 94 01/13/17 00:20 100.0 102 18 119/71 (87) 94 01/12/17 20:36 97.4 90 16 118/65 (82) 96 01/12/17 16:00 98.8 95 17 109/60 (76) 95 01/12/17 12:00 100.1 104 17 131/79 (96) 95 . Laboratory Tests Test 01/13/17 05:27 White Blood Count 9.0 TH/MM3 Red Blood Count 3.38 MIL/MM3 Hemoglobin 9.2 GM/DL Hematocrit 27.4 % Mean Corpuscular Volume 81.2 FL Mean Corpuscular Hemoglobin 27.2 PG Mean Corpuscular Hemoglobin Concent 33.5 % Red Cell Distribution Width 16.1 % Platelet Count 339 TH/MM3 Mean Platelet Volume 7.5 FL Neutrophils (%) (Auto) 63.8 % Lymphocytes (%) (Auto) 15.9 % Monocytes (%) (Auto) 11.8 % Eosinophils (%) (Auto) 8.0 % Basophils (%) (Auto) 0.5 % Neutrophils # (Auto) 5.7 TH/MM3 Lymphocytes # (Auto) 1.4 TH/MM3 Monocytes # (Auto) 1.1 TH/MM3 Eosinophils # (Auto) 0.7 TH/MM3 Basophils # (Auto) 0.0 TH/MM3 CBC Comment DIFF FINAL Differential Comment Laboratory Tests Test 01/12/17 11:50 01/13/17 05:27 Blood Urea Nitrogen 16 MG/DL 13 MG/DL Creatinine 1.82 MG/DL 1.57 MG/DL Random Glucose 191 MG/DL 109 MG/DL Calcium Level 9.3 MG/DL 9.0 MG/DL Magnesium Level 1.5 MG/DL 1.8 MG/DL Sodium Level 142 MEQ/L 143 MEQ/L Potassium Level 3.2 MEQ/L 3.3 MEQ/L Chloride Level 112 MEQ/L 111 MEQ/L Carbon Dioxide Level 21.5 MEQ/L 22.1 MEQ/L Anion Gap 9 MEQ/L 10 MEQ/L Estimat Glomerular Filtration Rate 34 ML/MIN 41 ML/MIN Microbiology Date/Time Source Procedure Growth Status 01/11/17 06:16 Blood Peripheral Aerobic Blood Culture - Preliminary NO GROWTH IN 1 DAY Resulted 01/11/17 06:16 Blood Peripheral Anaerobic Blood Culture - Preliminary NO GROWTH IN 1 DAY Resulted 01/10/17 23:40 Blood Peripheral Aerobic Blood Culture - Preliminary NO GROWTH IN 2 DAYS Resulted 01/10/17 23:40 Blood Peripheral Anaerobic Blood Culture - Preliminary NO GROWTH IN 2 DAYS Resulted Imaging Last Impressions Chest X-Ray 12/28/162045 Signed Impressions: Service Date/Time: Wednesday, December 28, 2016 21:00 - CONCLUSION: 1. Right basilar streakiness consistent with atelectasis and/or mild infiltrate. Clinical correlation is recommended. Manuel Adam MD Physical Exam GENERAL: awake and alert, NAD SKIN: Warm and dry. No generalized rash EYES: [place] conjunctiva. No petechia or hemorrhage. No scleral icterus. No injection or drainage. EARS, NOSE AND THROAT: Nose without bleeding or purulent nasal discharge. Mucous membranes pink and moist. No oral lesions noted. NECK: Trachea midline. Supple and not tender, no meningeal signs. Previous permacath site dry, no redness or tenderness CARDIOVASCULAR: Regular rate and rhythm. No murmurs, rubs or gallops heard RESPIRATORY: Clear to auscultation. Breath sounds equal bilaterally. No rales , wheezing or rhonchi. Decreased BS at the bases. ABDOMEN: Soft, non-tender, nondistended. Bowel sounds present and normoactive. No guarding. No rebound. No organomegaly. : SPC in place, site ok, urine looks ok EXTREMITIES: No clubbing, cyanosis, or edema. No joint effusion. No calf tenderness. Well perfused and warm. NEUROLOGICAL: Awake and alert. Cranial nerves grossly intact. weakness in her BLE. PSYCHIATRIC: Normal affect, calm and cooperative. LINE: PIV ok. Assessment & Plan Remarks IMPRESSION PNA, patient with known MS, C/S with MRSA and PSAE - latest sputum with PSAE - better; last CXR clear - S/P Rx UTI, has SPC, C/S with PSAE and Enterococcus - repeat UA better (+) BC with Staph epi, due to CABSI, has permacath - very long bacteremia Multiple sclerosis - on plasmapheresis, currently on hold Known Lupus Renal insufficiency - ?has plateaus - ?due to Abx, interstitial nephritis New fever, source? - - no obvious source of new infection RECOMMENDATION Follow creatinine Continue Cubicin - follow CPK - anticipated end date Jan 27 Monitor temps Monitor progress Give at least 4 weeks IV Abx from date of last (+) BC or removal of permacath Mili Wynn MD Jan 13, 2017 10:29
[2017-01-13 12:00] VITALS: BP 125/71; PULSE 99; RESP 17; TEMP 98.2; O2SAT 95
[2017-01-13] MEDS: DAPTOmycin INJ 650 MG in SODIUM CHLORIDE 0.9% INJ 100 ML IV SCH (14:37)
[2017-01-13 16:00] VITALS: BP 125/71; PULSE 88; RESP 16; TEMP 98.4; O2SAT 94
--- NOTE | 2017-01-13 16:09 | HHI.PR ---
Subjective Remarks Pt c/o continued nausea despite zofran. Pt requested phenergan for nausea which worked better. No diarrhea today. Objective Vitals Vital Signs Date Time Temp Pulse Resp B/P (MAP) Pulse Ox O2 Delivery O2 Flow Rate FiO2 01/13/17 12:00 98.2 99 17 125/71 (89) 95 01/13/17 08:00 99.7 107 18 146/85 (105) 94 01/13/17 00:20 100.0 102 18 119/71 (87) 94 01/12/17 20:36 97.4 90 16 118/65 (82) 96 01/13/17 01/13/17 01/14/17 15:00 23:00 07:00 Intake Total 100 ml 100 ml Balance 100 ml 100 ml IV Total 100 ml 100 ml Result Diagram: 01/13/1752601/13/17526 Imaging Last Impressions Central Venous Line 12/31/16 0000 Signed Impressions: Service Date/Time: Saturday, December 31, 2016 00:00 - CONCLUSION: Uncomplicated Permcath removal. Marky Cid MD Chest X-Ray 12/28/162045 Signed Impressions: Service Date/Time: Wednesday, December 28, 2016 21:00 - CONCLUSION: 1. Right basilar streakiness consistent with atelectasis and/or mild infiltrate. Clinical correlation is recommended. Manuel Adam MD Objective Remarks General: NAD, AAOx3 Chest: CTA Cardiac: Regular Abd: +BS, soft ND/NT Ext: No edema A/P Problem List: (1) Sepsis ICD Codes: A41.9 - Sepsis, unspecified organism Status: Acute Plan: - Pt is 61 yo woman with advance multiple sclerosis. She has been receiving weekly plasmapheresis on Tuesdays - She presented to the ED with complaints of productive cough that began around 2 - 3 weeks ago. Received around 11 days Levaquin initially but no improvement. - Pt was seen in ED and had sputum and blood cx on 12/24 and was diagnosed with bronchitis then discharged. - Pt was called back to ED 12/28 for positive sputum MRSA/pseudomonas and blood cx staph epi 2/4 - Pt says her hands were also getting weak and MS starting to flare. She has also missed her last 2 treatments. - SPC was last changed around 12/19 per the pt. It is changed monthly per the pt. - blood Cx (12/30/16) - Staph Epi 3/4 bottles - urine cx (12/28) --> pseudomonas, enterococcus - sputum cx (12/29) --> pseudomonas - blood cx (12/30) from permcath - staph epi - PermCath removed (12/31/16) d/t infection. tip cx --> less than 15 CFU - repeat blood cx (01/01/17) --> NGTD - repeat Blood Cx (01/02/17) --> NGTD - Echocardiogram (12/31/16) --> no vegetations noted, EF 55-60% - SHADY (01/03/17) --> NO vegetation - hold off on placing new PermCath until bacteremia resolved - so no plasmapheresis at this time - In the ED pt was given Primaxin as best ALEJANDRINA. - Vanco (12/29 - 01/02) Vanc stopped due to high levels and worsening renal function. - Zosyn and (12/29 - 01/04) - Daptomycin started on 01/07 - Vanco levels decreasing- Daptomycin started to complete therapy for bacteremia. - Cont prn duonebs and Mucomyst - 01/04/17 repeat CXR--> no acute disease - Pt reported vaginal bleeding and a foul odor, VOCATIONAL AIDE evaluated and pt found to have a 1cm laceration on the vaginal wall which was likely the source of the bleeding. No evidence of infection. 01/13/17 - Pt having continued fever, Tmax 100.2F - Repeat Blood Cx (01/10) --> NGTD - Repeat Blood Cx (01/11) --> NGTD - NO diarrhea - continue Daptomycin at least 4 weeks from date of last (+) blood cultures or removal of permacath per ID recommendation - PT and OT - Supportive care - DVT prophylaxis (2) Bronchopneumonia ICD Codes: J18.0 - Bronchopneumonia, unspecified organism Plan: - Improved - See above. (3) THONG (acute kidney injury) ICD Codes: N17.9 - Acute kidney failure, unspecified Plan: - THONG due to AIN from vanco vs zosyn - Vancomycin and Zosyn DC'd 01/04/17 - Appreciate nephrology input - Cr has been improving, down to 1.57 (01/13) - Pt with good urine output - Monitor labs (4) Multiple sclerosis ICD Codes: G35 - Multiple sclerosis Status: Chronic Plan: - Pt has missed her last two plasmapheresis sessions prior to admission - Pt reports weakness in the UE - see above (5) Chronic indwelling Mendoza catheter ICD Codes: Z92.89 - Personal history of other medical treatment Status: Chronic Plan: - SPC last changed on 12/19 - Repeat UA on 01/10 was negative (6) Essential hypertension ICD Codes: I10 - Essential (primary) hypertension Status: Chronic Plan: - Controlled - Continue Clonidine 0.2 mg Q6H PRN SBP >160, Nifedipine 60 mg PO daily, Nifedipine 30 mg PO QHS - Monitor BP - Lisinopril 20mg daily held due to THONG (7) Fibromyalgia ICD Codes: M79.7 - Fibromyalgia Status: Chronic (8) Lupus (systemic lupus erythematosus) ICD Codes: M32.9 - Systemic lupus erythematosus, unspecified Status: Chronic (9) Altered mental status ICD Codes: R41.82 - Altered mental status, unspecified Status: Resolved Plan: - Improving - CT head ordered and reviewed no acute finding - see THONG above Jan Stevens DO Jan 13, 2017 16:09
--- NOTE | 2017-01-13 17:06 | RADRPT ---
EXAM DATE/TIME: 01/13/2017 16:32 [facility] COMPARISON: CHEST SINGLE AP, December 28, 2016, 21:00. INDICATIONS : Cough. MEDICAL HISTORY : Hypertension. Hypercholesterolemia. Acute bronchitis. SURGICAL HISTORY : Vas Cath ENCOUNTER: Subsequent ACUITY: 2 weeks PAIN SCORE: 0/10 LOCATION: Bilateral chest FINDINGS: Minimal parenchymal changes are present left base. Right lung is clear. The cardiomediastinal conto urs are unremarkable. Osseous structures are intact. CONCLUSION: Minimal parenchymal changes left base, nonspecific. Fabien Sterling MD FACR on January 13, 2017 at 17:02 Board Certified Radiologist. This report was verified electronically.
--- NOTE | 2017-01-13 17:07 | HHI.NPPN ---
Subjective History of Present Illness 61-year-old female with past medical history of fibromyalgia, bipolar disorder, hypertension, lupus, recurrent urinary tract infection and a suprapubic catheter who was admitted with cough and weakness. I was called to see the patient with elevated BUN and creatinine. The patient has history of advanced multiple sclerosis and she has been on weekly plasmapheresis. Additional Remarks Patient is alert, has nausea, no vomiting, still not eating well, not in distress. Review of Systems General Constitutional: Fatigue Respiratory Lungs: SOB, Cough, Sputum, Wheeze Cardiovascular Cardiac: Edema, BLACK Objective Data Data 01/13/17 01/14/17 19:00 07:00 Intake Total 200 ml Balance 200 ml IV Total 200 ml Vital Signs Date Time Temp Pulse Resp B/P (MAP) Pulse Ox O2 Delivery O2 Flow Rate FiO2 01/13/17 16:00 98.4 88 16 125/71 (89) 94 01/13/17 12:00 98.2 99 17 125/71 (89) 95 01/13/17 08:00 99.7 107 18 146/85 (105) 94 01/13/17 00:20 100.0 102 18 119/71 (87) 94 01/12/17 20:36 97.4 90 16 118/65 (82) 96 -: 01/13/17 0527 01/13/17 0527 Physical Exam General Appearance: No Acute Distress, Comfortable Eyes Eye Exam: Pupils Equal Neck Neck Exam: Neck Supple Pulmonary Resp Exam: Crackles, Rhonchi, Sputum, Decreased Bases, Diminished Breath Sounds Cardiology CV Exam: Regular, Normal Sinus Rhythm Gastrointestinal/Abdomen GI Exam: Soft, Non-Tender, Bowel Sounds Present, Distended Extremeties Extremities Exam: Trace Edema Neurologic Neuro Exam: Alert, Awake, Oriented Psychiatric Psych Exam: Appropriate Responses Assessment/Plan Assessment Summary: THONG/Acute Renal Failure Problem List: (1) Essential hypertension ICD Codes: I10 - Essential (primary) hypertension Status: Chronic (2) GERD (gastroesophageal reflux disease) ICD Codes: K21.9 - Gastroesophageal reflux disease Status: Chronic (3) Generalized weakness ICD Codes: R53.1 - Weakness Status: Acute (4) Suprapubic catheter dysfunction ICD Codes: T83.010A - Breakdown (mechanical) of cystostomy catheter, initial encounter Status: Acute (5) Fibromyalgia ICD Codes: M79.7 - Fibromyalgia Status: Chronic (6) Lupus (systemic lupus erythematosus) ICD Codes: M32.9 - Systemic lupus erythematosus, unspecified Status: Chronic (7) THONG (acute kidney injury) ICD Codes: N17.9 - Acute kidney failure, unspecified Plan Still has no proteinuria. Urine out put is much better. BP is stable. Has urine Eosinophils and high Vanco. level. THONG is either due to possible interstitial Nephritis or Tubular damage due to high Vanco level. Continue IVF, avoid Nephrotoxins. Creatinine is improving,decreased to 1.5 K is normal, Started on Daptomycin, ID is following. Follow the urine out put and BMP. Continue IVF and encourage oral intake. Ivet Foote MD Jan 13, 2017 17:07
[2017-01-13 19:00] VITALS: BP 120/72; PULSE 89; RESP 18; TEMP 99.5; O2SAT 95
[2017-01-13] MEDS: NIFEdipine 10 MG CAP PO SCH (20:17)
[2017-01-14] VITALS: BP 122/56; PULSE 101; RESP 18; TEMP 98; O2SAT 95
[2017-01-14] MEDS: PROMETHAZINE HCL 25 MG TAB PO PRN (03:52)
[2017-01-14 08:00] VITALS: BP 137/81; PULSE 111; RESP 16; TEMP 99.3; O2SAT 93
[2017-01-14] MEDS: METHENAMINE HIPPURATE 1 GM PO SCH ×2 (09:00→22:04)
[2017-01-14] MEDS: ONDANSETRON HCL 4 MG/2 ML VIAL IV PRN (09:02)
[2017-01-14] MEDS: GABAPENTIN 300 MG CAP PO SCH ×3 (09:06→22:05)
[2017-01-14] MEDS: cloNIDine HCL 0.2 MG TAB PO SCH ×3 (09:06→18:35)
[2017-01-14] MEDS: PANTOPRAZOLE SOD 20 MG DELAYED RELEASE TAB PO SCH (09:06)
[2017-01-14] MEDS: HYDROXYCHLOROQUINE SULFATE 200 MG TAB PO SCH ×2 (09:06→22:06)
[2017-01-14] MEDS: NIFEdipine 60 MG SUSTAINED RELEASE TAB PO SCH (09:07)
[2017-01-14] MEDS: ASPIRIN 325 MG TAB PO SCH (09:07)
[2017-01-14] MEDS: guaiFENesin E.R. 600 MG TAB PO SCH ×2 (09:07→22:06)
[2017-01-14 12:00] VITALS: BP 128/77; PULSE 93; RESP 16; TEMP 98.7; O2SAT 95
[2017-01-14 13:19] LABS: BICARBONATE 24.1 MEQ/L (21.0-32.0); POTASSIUM 3.6 MEQ/L (3.5-5.1)
[2017-01-14] MEDS: SODIUM CHLOR 0.9% 1000 ML INJ 1,000 ML IV SCH ×2 (13:20→22:06)
--- NOTE | 2017-01-14 15:37 | HHI.PR ---
Subjective Remarks Pt reports that she is having a lot of pain associated with excoriations on her buttock but just had barrier cream applied She denies any cough or congestion Pts last fever was on 01/13 at 0800. Denies any diarrhea. Objective Vitals Vital Signs Date Time Temp Pulse Resp B/P (MAP) Pulse Ox O2 Delivery O2 Flow Rate FiO2 01/14/17 08:00 99.3 111 16 137/81 (99) 93 01/14/17 00:00 98.0 101 18 122/56 (78) 95 01/13/17 19:00 99.5 89 18 120/72 (88) 95 01/13/17 16:00 98.4 88 16 125/71 (89) 94 01/14/17 01/14/17 01/15/17 15:00 23:00 07:00 Intake Total 100 ml Balance 100 ml IV Total 100 ml Result Diagram: 01/13/17 0527 01/14/17 1216 Other Results Laboratory Tests Test 01/13/17 05:27 01/14/17 12:16 White Blood Count 9.0 TH/MM3 Red Blood Count 3.38 MIL/MM3 Hemoglobin 9.2 GM/DL Hematocrit 27.4 % Mean Corpuscular Volume 81.2 FL Mean Corpuscular Hemoglobin 27.2 PG Mean Corpuscular Hemoglobin Concent 33.5 % Red Cell Distribution Width 16.1 % Platelet Count 339 TH/MM3 Mean Platelet Volume 7.5 FL Neutrophils (%) (Auto) 63.8 % Lymphocytes (%) (Auto) 15.9 % Monocytes (%) (Auto) 11.8 % Eosinophils (%) (Auto) 8.0 % Basophils (%) (Auto) 0.5 % Neutrophils # (Auto) 5.7 TH/MM3 Lymphocytes # (Auto) 1.4 TH/MM3 Monocytes # (Auto) 1.1 TH/MM3 Eosinophils # (Auto) 0.7 TH/MM3 Basophils # (Auto) 0.0 TH/MM3 CBC Comment DIFF FINAL Differential Comment Blood Urea Nitrogen 13 MG/DL 10 MG/DL Creatinine 1.57 MG/DL 1.25 MG/DL Random Glucose 109 MG/DL 124 MG/DL Calcium Level 9.0 MG/DL 8.7 MG/DL Magnesium Level 1.8 MG/DL Sodium Level 143 MEQ/L 144 MEQ/L Potassium Level 3.3 MEQ/L 3.6 MEQ/L Chloride Level 111 MEQ/L 112 MEQ/L Carbon Dioxide Level 22.1 MEQ/L 24.1 MEQ/L Anion Gap 10 MEQ/L 8 MEQ/L Estimat Glomerular Filtration Rate 41 ML/MIN 53 ML/MIN Imaging Last Impressions Central Venous Line 12/31/16 0000 Signed Impressions: Service Date/Time: Saturday, December 31, 2016 00:00 - CONCLUSION: Uncomplicated Permcath removal. Marky Cid MD Chest X-Ray 12/28/162045 Signed Impressions: Service Date/Time: Wednesday, December 28, 2016 21:00 - CONCLUSION: 1. Right basilar streakiness consistent with atelectasis and/or mild infiltrate. Clinical correlation is recommended. Manuel Adam MD Objective Remarks General: NAD, AAOx3 Chest: CTA Cardiac: Regular Abd: +BS, soft ND/NT Ext: No edema A/P Problem List: (1) Sepsis ICD Codes: A41.9 - Sepsis, unspecified organism Status: Acute Plan: - Pt is 61 yo woman with advance multiple sclerosis. She has been receiving weekly plasmapheresis on Tuesdays - She presented to the ED with complaints of productive cough that began around 2 - 3 weeks ago. Received around 11 days Levaquin initially but no improvement. - Pt was seen in ED and had sputum and blood cx on 12/24 and was diagnosed with bronchitis then discharged. - Pt was called back to ED 12/28 for positive sputum MRSA/pseudomonas and blood cx staph epi 2/4 - Pt says her hands were also getting weak and MS starting to flare. She has also missed her last 2 treatments. - SPC was last changed around 12/19 per the pt. It is changed monthly per the pt. - blood Cx (12/30/16) - Staph Epi 3/4 bottles - urine cx (12/28) --> pseudomonas, enterococcus - sputum cx (12/29) --> pseudomonas - blood cx (12/30) from permcath - staph epi - PermCath removed (12/31/16) d/t infection. tip cx --> less than 15 CFU - repeat blood cx (01/01/17) --> NGTD - repeat Blood Cx (01/02/17) --> NGTD - Echocardiogram (12/31/16) --> no vegetations noted, EF 55-60% - SHADY (01/03/17) --> NO vegetation - hold off on placing new PermCath until bacteremia resolved - so no plasmapheresis at this time - In the ED pt was given Primaxin as best ALEJANDRINA. - Vanco (12/29 - 01/02) Vanc stopped due to high levels and worsening renal function. - Zosyn and (12/29 - 01/04) - Daptomycin started on 01/07 - Vanco levels decreasing- Daptomycin started to complete therapy for bacteremia. - Cont prn duonebs and Mucomyst - 01/04/17 repeat CXR--> no acute disease - Pt reported vaginal bleeding and a foul odor, TRANSCRIBING MACHINE OPERATOR evaluated and pt found to have a 1cm laceration on the vaginal wall which was likely the source of the bleeding. No evidence of infection. - Pts last fever was on 01/13 @ 0800, 99.7 degrees - Repeat Blood Cx (01/10) --> NGTD - Repeat Blood Cx (01/11) --> NGTD - NO diarrhea - continue Daptomycin at least 4 weeks from date of last (+) blood cultures or removal of PermCath per ID recommendation - PT and OT - Supportive care - DVT prophylaxis (2) Bronchopneumonia ICD Codes: J18.0 - Bronchopneumonia, unspecified organism Plan: - Improved - See above. (3) THONG (acute kidney injury) ICD Codes: N17.9 - Acute kidney failure, unspecified Plan: - THONG due to AIN from vanco vs zosyn - Vancomycin and Zosyn DC'd 01/04/17 - Appreciate nephrology input - Cr has been improving, down to 1.25 (01/14) - Pt with good urine output - Monitor labs (4) Multiple sclerosis ICD Codes: G35 - Multiple sclerosis Status: Chronic Plan: - Pt has missed her last two plasmapheresis sessions prior to admission - Pt reports weakness in the UE - see above (5) Chronic indwelling Mendoza catheter ICD Codes: Z92.89 - Personal history of other medical treatment Status: Chronic Plan: - SPC last changed on 12/19 - Repeat UA on 01/10 was negative (6) Essential hypertension ICD Codes: I10 - Essential (primary) hypertension Status: Chronic Plan: - Controlled - Continue Clonidine 0.2 mg Q6H PRN SBP >160, Nifedipine 60 mg PO daily, Nifedipine 30 mg PO QHS - Monitor BP - Lisinopril 20mg daily held due to THONG (7) Fibromyalgia ICD Codes: M79.7 - Fibromyalgia Status: Chronic (8) Lupus (systemic lupus erythematosus) ICD Codes: M32.9 - Systemic lupus erythematosus, unspecified Status: Chronic (9) Altered mental status ICD Codes: R41.82 - Altered mental status, unspecified Status: Resolved Plan: - Improving - CT head ordered and reviewed no acute finding - see THONG above Assessment and Plan Patient examined. Assessment and plan formulated with Katherin Nava PA-C. I agree with the above. Katherin Nava Jan 14, 2017 15:37 Jan Stevens DO Jan 20, 2017 12:32
--- NOTE | 2017-01-14 15:52 | PD.WCN.NOT ---
Wound Consult Description: Consult placed for Wound Management of bilateral buttocks per Dr Stevens Communicated with: TODD Maldonado Patient Patient friend at bedside Recommendation: Use one ultrasorb underneath patient for moisture. Apply Calazime skin protectant BID and PRN for moisture related breakdown of bilateral buttocks and inner thighs Continue to reposition patient every 2 hours Additional Information: Patient seen on for wound evaluation of bilateral buttocks. Patient positioned to her right side for assessment. There are multiple partial thickness skinloss areas noted to left buttock and gluteal cleft, and gluteal folds, too many to count. Periwounds are moisture related wrinkled wet friable skin. Recommend to gently cleanse areas with soft cloths and mild soap careful not to remove all of the skin protectant. Apply Calazime after each cleansing. Patient positioned to her left side for removal of cloth pad and visualization of right buttock that is noted with partial and full thickness skinloss areas related to moisture. Areas were slathered in Calazime skin protectant and patient was positioned to her left side with pillows placed underneath her right side. Patient is noted on a bariatric air bed. Please continue to reposition patient Q2H while on specialty surface. Heather Alexis CRN Jan 14, 2017 15:52
--- NOTE | 2017-01-14 15:59 | HHI.NPPN ---
Subjective History of Present Illness 61-year-old female with past medical history of fibromyalgia, bipolar disorder, hypertension, lupus, recurrent urinary tract infection and a suprapubic catheter who was admitted with cough and weakness. I was called to see the patient with elevated BUN and creatinine. The patient has history of advanced multiple sclerosis and she has been on weekly plasmapheresis. Additional Remarks Patient is alert, still not eating well, not in distress, no SOB. Review of Systems General Constitutional: Fatigue Respiratory Lungs: SOB, Cough, Sputum, Wheeze Cardiovascular Cardiac: Edema, BLACK Objective Data Data 01/14/17 01/15/17 19:00 07:00 Intake Total 100 ml Balance 100 ml IV Total 100 ml Vital Signs Date Time Temp Pulse Resp B/P (MAP) Pulse Ox O2 Delivery O2 Flow Rate FiO2 01/14/17 08:00 99.3 111 16 137/81 (99) 93 01/14/17 00:00 98.0 101 18 122/56 (78) 95 01/13/17 19:00 99.5 89 18 120/72 (88) 95 01/13/17 16:00 98.4 88 16 125/71 (89) 94 -: 01/13/17 0527 01/14/17 1216 Physical Exam General Appearance: No Acute Distress, Comfortable Eyes Eye Exam: Pupils Equal Neck Neck Exam: Neck Supple Pulmonary Resp Exam: Crackles, Rhonchi, Sputum, Decreased Bases, Diminished Breath Sounds Cardiology CV Exam: Regular, Normal Sinus Rhythm Gastrointestinal/Abdomen GI Exam: Soft, Non-Tender, Bowel Sounds Present, Distended Extremeties Extremities Exam: Trace Edema Neurologic Neuro Exam: Alert, Awake, Oriented Psychiatric Psych Exam: Appropriate Responses Assessment/Plan Assessment Summary: THONG/Acute Renal Failure Problem List: (1) Essential hypertension ICD Codes: I10 - Essential (primary) hypertension Status: Chronic (2) GERD (gastroesophageal reflux disease) ICD Codes: K21.9 - Gastroesophageal reflux disease Status: Chronic (3) Generalized weakness ICD Codes: R53.1 - Weakness Status: Acute (4) Suprapubic catheter dysfunction ICD Codes: T83.010A - Breakdown (mechanical) of cystostomy catheter, initial encounter Status: Acute (5) Fibromyalgia ICD Codes: M79.7 - Fibromyalgia Status: Chronic (6) Lupus (systemic lupus erythematosus) ICD Codes: M32.9 - Systemic lupus erythematosus, unspecified Status: Chronic (7) THONG (acute kidney injury) ICD Codes: N17.9 - Acute kidney failure, unspecified Plan Still has no proteinuria. Urine out put is much better. BP is stable. Has urine Eosinophils and high Vanco. level. THONG is either due to possible interstitial Nephritis or Tubular damage due to high Vanco level. Creatinine is improving,decreased to 1.2 K is normal, Started on Daptomycin, ID is following. Follow the urine out put and BMP. Continue IVF and encourage oral intake. Avoid Nephrotoxins. Ivet Foote MD Jan 14, 2017 15:59
[2017-01-14 16:00] VITALS: BP 136/73; PULSE 97; RESP 18; TEMP 98.7; O2SAT 93
[2017-01-14 20:00] VITALS: BP 133/65; PULSE 95; RESP 20; TEMP 99.1; O2SAT 96
[2017-01-14] MEDS: NIFEdipine 10 MG CAP PO SCH (22:05)
[2017-01-15] VITALS: BP 133/66; PULSE 95; RESP 20; TEMP 99.2; O2SAT 96
[2017-01-15] MEDS: ONDANSETRON HCL 4 MG/2 ML VIAL IV PRN (05:32)
[2017-01-15] MEDS: SODIUM CHLOR 0.9% 1000 ML INJ 1,000 ML IV SCH ×2 (05:35→16:59)
[2017-01-15 08:00] VITALS: BP 139/85; PULSE 104; RESP 20; TEMP 98.9; O2SAT 98
[2017-01-15] MEDS: HYDROXYCHLOROQUINE SULFATE 200 MG TAB PO SCH ×2 (10:03→22:58)
[2017-01-15] MEDS: PANTOPRAZOLE SOD 20 MG DELAYED RELEASE TAB PO SCH (10:03)
[2017-01-15] MEDS: cloNIDine HCL 0.2 MG TAB PO SCH ×3 (10:03→16:59)
[2017-01-15] MEDS: ASPIRIN 325 MG TAB PO SCH (10:03)
[2017-01-15] MEDS: METHENAMINE HIPPURATE 1 GM PO SCH ×2 (10:03→22:57)
[2017-01-15] MEDS: NIFEdipine 60 MG SUSTAINED RELEASE TAB PO SCH (10:03)
[2017-01-15] MEDS: GABAPENTIN 300 MG CAP PO SCH ×3 (10:03→22:57)
[2017-01-15] MEDS: guaiFENesin E.R. 600 MG TAB PO SCH ×2 (10:03→22:58)
[2017-01-15] MEDS: PROMETHAZINE HCL 25 MG TAB PO PRN (10:09)
[2017-01-15 12:00] VITALS: BP 128/76; PULSE 90; RESP 18; TEMP 99.2; O2SAT 95
[2017-01-15] MEDS: DAPTOmycin INJ 650 MG in SODIUM CHLORIDE 0.9% INJ 100 ML IV SCH (12:02)
[2017-01-15] MEDS: RESP: IPRATROPIUM 0.5 MG/2.5 ML NEB NEB PRN ×2 (12:27→17:20)
[2017-01-15 12:31] VITALS: O2SAT 98
--- NOTE | 2017-01-15 12:51 | HHI.PR ---
Subjective Remarks No new complaints. Objective Vitals Vital Signs Date Time Temp Pulse Resp B/P (MAP) Pulse Ox O2 Delivery O2 Flow Rate FiO2 01/15/17 12:31 98 21 01/15/17 12:00 99.2 90 18 128/76 (93) 95 01/15/17 08:00 98.9 104 20 139/85 (103) 98 01/15/17 00:00 99.2 95 20 133/66 (88) 96 01/14/17 20:00 99.1 95 20 133/65 (87) 96 01/14/17 16:00 98.7 97 18 136/73 (94) 93 Result Diagram: 01/13/17 0527 01/14/17 1216 Imaging Last Impressions Chest X-Ray 01/13/17 0000 Signed Impressions: Service Date/Time: Friday, January 13, 2017 16:32 - CONCLUSION: Minimal parenchymal changes left base, nonspecific. Fabien Sterling MD FACR Renal Ultrasound 01/04/17 0000 Signed Impressions: Service Date/Time: Wednesday, January 04, 2017 14:08 - CONCLUSION: Negative for mass or hydronephrosis. Cortex is well preserved. Fabien Sterling MD FACR Head CT 01/04/17 0000 Signed Impressions: Service Date/Time: Wednesday, January 04, 2017 10:22 - CONCLUSION: 1. Normal appearance of the brain. Rob Strauss MD Upper Extremity Ultrasound 01/03/17 0000 Signed Impressions: Service Date/Time: Tuesday, January 03, 2017 11:49 - CONCLUSION: Negative for deep venous thrombosis. Fabien Sterling MD FACR Central Venous Line 12/31/16 0000 Signed Impressions: Service Date/Time: Saturday, December 31, 2016 00:00 - CONCLUSION: Uncomplicated Permcath removal. Marky Cid MD Objective Remarks General: NAD, AAOx3 Chest: CTA Cardiac: Regular Abd: +BS, soft ND/NT Ext: No edema A/P Problem List: (1) Sepsis ICD Codes: A41.9 - Sepsis, unspecified organism Status: Acute Plan: - Pt is 61 yo woman with advance multiple sclerosis. She has been receiving weekly plasmapheresis on Tuesdays - She presented to the ED with complaints of productive cough that began around 2 - 3 weeks ago. Received around 11 days Levaquin initially but no improvement. - Pt was seen in ED and had sputum and blood cx on 12/24 and was diagnosed with bronchitis then discharged. - Pt was called back to ED 12/28 for positive sputum MRSA/pseudomonas and blood cx staph epi 2/ - Pt says her hands were also getting weak and MS starting to flare. She has also missed her last 2 treatments. - SPC was last changed around 12/19 per the pt. It is changed monthly per the pt. - blood Cx (12/30/16) - Staph Epi 3/4 bottles - urine cx (12/28) --> pseudomonas, enterococcus - sputum cx (12/29) --> pseudomonas - blood cx (12/30) from permcath - staph epi - PermCath removed (12/31/16) d/t infection. tip cx --> less than 15 CFU - repeat blood cx (01/01/17) --> NGTD - repeat Blood Cx (01/02/17) --> NGTD - Echocardiogram (12/31/16) --> no vegetations noted, EF 55-60% - SHADY (01/03/17) --> NO vegetation - hold off on placing new PermCath until bacteremia resolved - so no plasmapheresis at this time - In the ED pt was given Primaxin as best ALEJANDRINA. - Vanco (12/29 - 01/02) Vanc stopped due to high levels and worsening renal function. - Zosyn and (12/29 - 01/04) - Daptomycin started on 01/07 - Vanco levels decreasing- Daptomycin started to complete therapy for bacteremia. - Cont prn duonebs and Mucomyst - 01/04/17 repeat CXR--> no acute disease - Pt reported vaginal bleeding and a foul odor, PUTTY MAKER evaluated and pt found to have a 1cm laceration on the vaginal wall which was likely the source of the bleeding. No evidence of infection. - Pts last fever was on 01/13 @ 0800, 99.7 degrees - Repeat Blood Cx (01/10) --> NGTD - Repeat Blood Cx (01/11) --> NGTD - NO diarrhea - continue Daptomycin at least 4 weeks from date of last (+) blood cultures or removal of PermCath per ID recommendation - PT and OT - Supportive care - DVT prophylaxis 01/15/17 - continue treatment plan as outlined above - Tmax 99.2 - repeat blood cultures showed NO growth - NO leukocytosis - if pt remains afebrile, then will plan for PICC 01/16 - case d/w ID today, (01/15/17) (2) Bronchopneumonia ICD Codes: J18.0 - Bronchopneumonia, unspecified organism Plan: - Improved - See above. (3) THONG (acute kidney injury) ICD Codes: N17.9 - Acute kidney failure, unspecified Plan: - resolved - THONG due to AIN from vanco vs zosyn - Vancomycin and Zosyn DC'd 01/04/17 - Appreciate nephrology input - Cr has been improving, down to 1.25 (01/14) - Pt with good urine output - Monitor labs (4) Multiple sclerosis ICD Codes: G35 - Multiple sclerosis Status: Chronic Plan: - Pt has missed her last two plasmapheresis sessions prior to admission - Pt reports weakness in the UE - see above - Pt requests reevaluation by Neurology, RE: MS medications (5) Chronic indwelling Mendoza catheter ICD Codes: Z92.89 - Personal history of other medical treatment Status: Chronic Plan: - SPC last changed on 12/19 - Repeat UA on 01/10 was negative (6) Essential hypertension ICD Codes: I10 - Essential (primary) hypertension Status: Chronic Plan: - Controlled - Continue Clonidine 0.2 mg Q6H PRN SBP >160, Nifedipine 60 mg PO daily, Nifedipine 30 mg PO QHS - Monitor BP - Lisinopril 20mg daily held due to THONG (7) Fibromyalgia ICD Codes: M79.7 - Fibromyalgia Status: Chronic (8) Lupus (systemic lupus erythematosus) ICD Codes: M32.9 - Systemic lupus erythematosus, unspecified Status: Chronic (9) Altered mental status ICD Codes: R41.82 - Altered mental status, unspecified Status: Resolved Plan: - Improving - CT head ordered and reviewed no acute finding - see THONG above Jna Stevens DO Jan 15, 2017 12:51
--- NOTE | 2017-01-15 14:14 | HHI.IDPN ---
Subjective Subjective Remarks Patient is a 61 year old female, with known MS, admitted to the hospital after her BC came back (+) and he sputum C/S with MRSA and PSAE. Patient states that she has been sick since the early part of December. She had generalized malaise, and was having some productive cough. It was initially white in color and then it became yellow. She also has had some diarrhea in the beginning which has resolved, as well as vomiting. She continues to have vomiting at least 3 times a day but since she's been taking Zofran that has improved. She's had intermittent fevers the highest has been about 101. Patient gets plasmapheresis every Friday, and she missed a treatment about 2 weeks ago. She went for her treatment on December 24, and at that time she had mentioned that she was having some coughing. She was instructed to go the emergency room , and in the ER she was afebrile. And her chest x-ray did not show any consolidation. 2 blood cultures were done at that time as well as the sputum. Prior to that visit patient has been taking Levaquin as prescribed by her primary care physician. Patient stated that she was given some cough medication and was discharge. Her blood cultures are now reported as growing staph epidermides, and her sputum with MRSA and Pseudomonas. Patient was called back in to the hospital and admitted. Since admission she has not had any fever. She is still coughing up some yellowish phlegm. She gets some dyspnea on exertion. She has occasional pain on her chest when she has a lot of coughing episodes. Her chest x-ray now is showing some basilar infiltrates. Notes reviewed Temps better No new complaint Not coughing, no other resp complaints No N/V NO diarrhea Repeat UA ok 2 BC 01/10 negative BC 01/11 negative No rash or itching last CXR 01/04 clear Creatinine improving Good UO CPK ok Antibiotics Cubicin Lines PIV Permacath - removed Past Medical History Multiple sclerosis diagnosed in late 2012 requiring plasmapheresis weekly Fibromyalgia Bipolar disorder History of obesity Hypertension Lupus Fibromyalgia Gastroparesis Recurrent UTIs Past Surgical History chronic indwelling suprapubic cath. changed monthly 2004 the patient had C3 through C6 anterior cervical discectomy and arthrodesis for severe cervical stenosis and myelopathy 2008 the patient had again the same diagnosis but had C6-C7 anterior cervical discectomy and arthrodesis 2010 the patient had open reduction, internal fixation of a right ankle fracture Right distal fibula fracture Torn lateral meniscus last year and underwent arthroscopic surgery Laparoscopic cholecystectomy Hysterectomy Suprapubic catheter placement PermCath placement Allergies: Coded Allergies: adhesive (Unverified Allergy, Severe, Rash, 12/28/16) albuterol (Unverified Allergy, Severe, SORES, 12/28/16) codeine (Unverified Allergy, Severe, SWELLING AND DIFFICULTY BREATHING, ) hydrocodone (Unverified Allergy, Severe, RASH AND SWELLING, 12/28/16) isradipine (Unverified Allergy, Severe, ELEVATED HEART RATE, 12/28/16) methylprednisolone (Unverified Allergy, Severe, Shortness of Breath, ) oxycodone (Unverified Allergy, Severe, ITCHING, 12/28/16) Objective . Vital Signs Date Time Temp Pulse Resp B/P (MAP) Pulse Ox O2 Delivery O2 Flow Rate FiO2 01/15/17 12:31 98 21 01/15/17 12:00 99.2 90 18 128/76 (93) 95 01/15/17 08:00 98.9 104 20 139/85 (103) 98 01/15/17 00:00 99.2 95 20 133/66 (88) 96 01/14/17 20:00 99.1 95 20 133/65 (87) 96 01/14/17 16:00 98.7 97 18 136/73 (94) 93 . Laboratory Tests Test 01/14/17 12:16 Blood Urea Nitrogen 10 MG/DL Creatinine 1.25 MG/DL Random Glucose 124 MG/DL Calcium Level 8.7 MG/DL Sodium Level 144 MEQ/L Potassium Level 3.6 MEQ/L Chloride Level 112 MEQ/L Carbon Dioxide Level 24.1 MEQ/L Anion Gap 8 MEQ/L Estimat Glomerular Filtration Rate 53 ML/MIN Imaging Last Impressions Chest X-Ray 01/13/17 0000 Signed Impressions: Service Date/Time: Friday, January 13, 2017 16:32 - CONCLUSION: Minimal parenchymal changes left base, nonspecific. Fabien Sterlign MD FACR Renal Ultrasound 01/04/17 0000 Signed Impressions: Service Date/Time: Wednesday, January 04, 2017 14:08 - CONCLUSION: Negative for mass or hydronephrosis. Cortex is well preserved. Fabien Sterling MD FACR Head CT 01/04/17 0000 Signed Impressions: Service Date/Time: Wednesday, January 04, 2017 10:22 - CONCLUSION: 1. Normal appearance of the brain. Rob Strauss MD Upper Extremity Ultrasound 01/03/17 0000 Signed Impressions: Service Date/Time: Tuesday, January 03, 2017 11:49 - CONCLUSION: Negative for deep venous thrombosis. Fabien Sterling MD FACR Central Venous Line 12/31/16 0000 Signed Impressions: Service Date/Time: Saturday, December 31, 2016 00:00 - CONCLUSION: Uncomplicated Permcath removal. Marky Cid MD Last Impressions Chest X-Ray 12/28/162045 Signed Impressions: Service Date/Time: Wednesday, December 28, 2016 21:00 - CONCLUSION: 1. Right basilar streakiness consistent with atelectasis and/or mild infiltrate. Clinical correlation is recommended. Manuel Adam MD Physical Exam GENERAL: awake and alert, NAD SKIN: Warm and dry. No generalized rash EYES: Rankin conjunctiva. No petechia or hemorrhage. No scleral icterus. No injection or drainage. EARS, NOSE AND THROAT: Nose without bleeding or purulent nasal discharge. Mucous membranes pink and moist. No oral lesions noted. NECK: Trachea midline. Supple and not tender, no meningeal signs. Previous permacath site dry, no redness or tenderness CARDIOVASCULAR: Regular rate and rhythm. No murmurs, rubs or gallops heard RESPIRATORY: Clear to auscultation. Breath sounds equal bilaterally. No rales , wheezing or rhonchi. Decreased BS at the bases. ABDOMEN: Soft, non-tender, nondistended. Bowel sounds present and normoactive. No guarding. No rebound. No organomegaly. : SPC in place, site ok, urine looks ok EXTREMITIES: No clubbing, cyanosis, or edema. No joint effusion. No calf tenderness. Well perfused and warm. NEUROLOGICAL: Awake and alert. Cranial nerves grossly intact. weakness in her BLE. PSYCHIATRIC: Normal affect, calm and cooperative. LINE: PIV ok. Assessment & Plan Remarks IMPRESSION PNA, patient with known MS, C/S with MRSA and PSAE - latest sputum with PSAE - better; last CXR clear - S/P Rx UTI, has SPC, C/S with PSAE and Enterococcus - repeat UA better (+) BC with Staph epi, due to CABSI, has permacath - very long bacteremia Multiple sclerosis - on plasmapheresis, currently on hold Known Lupus Renal insufficiency - improving - ?due to Abx, interstitial nephritis New fever, source? temps better - - no obvious source of new infection RECOMMENDATION Follow creatinine Continue Cubicin - follow CPK - Give at least 4 weeks IV Abx from date of last (+) BC or removal of permacath - anticipated end date Jan 27 - increase to q24H Monitor temps Monitor progress D/W Dr Stevens - PICC tomorrow if temps ok, and BC negative Mili Wynn MD Jan 15, 2017 14:14
[2017-01-15 16:00] VITALS: BP 129/73; PULSE 90; RESP 18; TEMP 98.8; O2SAT 93
--- NOTE | 2017-01-15 16:09 | HHI.NPPN ---
Subjective History of Present Illness 61-year-old female with past medical history of fibromyalgia, bipolar disorder, hypertension, lupus, recurrent urinary tract infection and a suprapubic catheter who was admitted with cough and weakness. I was called to see the patient with elevated BUN and creatinine. The patient has history of advanced multiple sclerosis and she has been on weekly plasmapheresis. Additional Remarks Patient is alert, not in distress, no SOB, started eating better. Review of Systems General Constitutional: Fatigue Respiratory Lungs: SOB, Cough, Sputum, Wheeze Cardiovascular Cardiac: Edema, BLACK Objective Data Data 01/15/17 01/16/17 19:00 07:00 Intake Total 100 ml Balance 100 ml IV Total 100 ml Vital Signs Date Time Temp Pulse Resp B/P (MAP) Pulse Ox O2 Delivery O2 Flow Rate FiO2 01/15/17 12:31 98 21 01/15/17 12:00 99.2 90 18 128/76 (93) 95 01/15/17 08:00 98.9 104 20 139/85 (103) 98 01/15/17 00:00 99.2 95 20 133/66 (88) 96 01/14/17 20:00 99.1 95 20 133/65 (87) 96 -: 01/13/17 0527 01/14/17 1216 Physical Exam General Appearance: No Acute Distress, Comfortable Eyes Eye Exam: Pupils Equal Neck Neck Exam: Neck Supple Pulmonary Resp Exam: Crackles, Rhonchi, Sputum, Decreased Bases, Diminished Breath Sounds Cardiology CV Exam: Regular, Normal Sinus Rhythm Gastrointestinal/Abdomen GI Exam: Soft, Non-Tender, Bowel Sounds Present, Distended Extremeties Extremities Exam: Trace Edema Neurologic Neuro Exam: Alert, Awake, Oriented Psychiatric Psych Exam: Appropriate Responses Assessment/Plan Assessment Summary: THOGN/Acute Renal Failure Problem List: (1) Essential hypertension ICD Codes: I10 - Essential (primary) hypertension Status: Chronic (2) GERD (gastroesophageal reflux disease) ICD Codes: K21.9 - Gastroesophageal reflux disease Status: Chronic (3) Generalized weakness ICD Codes: R53.1 - Weakness Status: Acute (4) Suprapubic catheter dysfunction ICD Codes: T83.010A - Breakdown (mechanical) of cystostomy catheter, initial encounter Status: Acute (5) Fibromyalgia ICD Codes: M79.7 - Fibromyalgia Status: Chronic (6) Lupus (systemic lupus erythematosus) ICD Codes: M32.9 - Systemic lupus erythematosus, unspecified Status: Chronic (7) THONG (acute kidney injury) ICD Codes: N17.9 - Acute kidney failure, unspecified Plan Still has no proteinuria. Urine out put is much better. BP is stable. Has urine Eosinophils and high Vanco. level. THONG is either due to possible interstitial Nephritis or Tubular damage due to high Vanco level. On Daptomycin, ID is following. Follow the urine out put and BMP. Continue IVF and encourage oral intake. Avoid Nephrotoxins. Follow the BMP in AM. Ivet Foote MD Jan 15, 2017 16:09
--- NOTE | 2017-01-15 19:10 | MB ---
cc: MELE ASHFORD,CHANTALE Tomlin M.D. DATE OF CONSULTATION: 01/15/2017 REASON FOR CONSULTATION: Multiple sclerosis. HISTORY OF PRESENT ILLNESS Ms. Montez is a very nice 61 year-old female who has multiple sclerosis. She was previously on Aubagio but was having relapses and this was changed to Rebif which she seemed to do better on. She recently was admitted with sepsis as well as Hgpedr-X-Yjur infection. The Arwjjw-X-Ibsb has been removed. The sepsis has been treated. She feels her MS has been stable. She has chronic lower extremity weakness but no new symptoms. NEUROLOGICAL EXAMINATION: Higher cortical functions are normal. Cranial nerves intact. Motor exam, she has had 4/5 strength in all major groups in both upper extremities, 1/5 lower extremity strength. IMPRESSION: Multiple sclerosis. RECOMMENDATIONS: At this time would recommend resuming Rebif 44 micrograms subcutaneous 3x a week. MD SHARMAINE Elliott/ADRIEN /5:13 PM /6:54 PM
[2017-01-15 20:00] VITALS: BP 128/63; PULSE 97; RESP 20; TEMP 98.5; O2SAT 92
[2017-01-15] MEDS: NIFEdipine 10 MG CAP PO SCH (22:58)
[2017-01-16] VITALS: BP 142/76; PULSE 98; RESP 20; TEMP 98.7; O2SAT 92
[2017-01-16] MEDS: HYDROmorphone HCL 4 MG TAB PO PRN (00:20)
[2017-01-16] MEDS: SODIUM CHLOR 0.9% 1000 ML INJ 1,000 ML IV SCH ×3 (03:23→23:15)
[2017-01-16 08:00] VITALS: BP 145/79; PULSE 103; RESP 16; TEMP 99.2; O2SAT 96
[2017-01-16 08:42] LABS: BICARBONATE 26.2 MEQ/L (21.0-32.0); POTASSIUM 3.1 MEQ/L (3.5-5.1)
[2017-01-16] MEDS: METHENAMINE HIPPURATE 1 GM PO SCH ×2 (08:53→21:00)
[2017-01-16] MEDS: HYDROXYCHLOROQUINE SULFATE 200 MG TAB PO SCH ×2 (08:54→21:00)
[2017-01-16] MEDS: ASPIRIN 325 MG TAB PO SCH (08:54)
[2017-01-16] MEDS: NIFEdipine 60 MG SUSTAINED RELEASE TAB PO SCH (08:54)
[2017-01-16] MEDS: GABAPENTIN 300 MG CAP PO SCH ×3 (08:54→21:00)
[2017-01-16] MEDS: cloNIDine HCL 0.2 MG TAB PO SCH ×3 (08:54→17:03)
[2017-01-16] MEDS: guaiFENesin E.R. 600 MG TAB PO SCH ×2 (08:54→21:00)
[2017-01-16] MEDS: PANTOPRAZOLE SOD 20 MG DELAYED RELEASE TAB PO SCH (08:55)
[2017-01-16] MEDS: ONDANSETRON HCL 4 MG/2 ML VIAL IV PRN (08:59)
[2017-01-16] MEDS ORDERED: POTASSIUM CHLORIDE 10 MEQ CONTROLLED RELEASE TAB PO ONE (10:15)
--- NOTE | 2017-01-16 11:00 | HHI.PR ---
Subjective Remarks Patient reports feeling much better. She is looking forward to DC- planning for SNF placement at time of DC denies SOB or cough Objective Vitals Vital Signs Date Time Temp Pulse Resp B/P (MAP) Pulse Ox O2 Delivery O2 Flow Rate FiO2 01/16/17 08:00 99.2 103 16 145/79 (101) 96 01/16/17 00:00 98.7 98 20 142/76 (98) 92 01/15/17 20:00 98.5 97 20 128/63 (84) 92 01/15/17 16:00 98.8 90 18 129/73 (91) 93 01/15/17 12:31 98 21 01/15/17 12:00 99.2 90 18 128/76 (93) 95 Result Diagram: 01/13/17 0527 01/16/17 0641 Other Results Laboratory Tests Test 01/14/17 12:16 01/16/17 06:41 Blood Urea Nitrogen 10 MG/DL 7 MG/DL Creatinine 1.25 MG/DL 1.21 MG/DL Random Glucose 124 MG/DL 83 MG/DL Calcium Level 8.7 MG/DL 9.6 MG/DL Sodium Level 144 MEQ/L 142 MEQ/L Potassium Level 3.6 MEQ/L 3.1 MEQ/L Chloride Level 112 MEQ/L 106 MEQ/L Carbon Dioxide Level 24.1 MEQ/L 26.2 MEQ/L Anion Gap 8 MEQ/L 10 MEQ/L Estimat Glomerular Filtration Rate 53 ML/MIN 55 ML/MIN Imaging Last Impressions Chest X-Ray 01/13/17 0000 Signed Impressions: Service Date/Time: Friday, January 13, 2017 16:32 - CONCLUSION: Minimal parenchymal changes left base, nonspecific. Fabien Sterling MD FACR Renal Ultrasound 01/04/17 0000 Signed Impressions: Service Date/Time: Wednesday, January 04, 2017 14:08 - CONCLUSION: Negative for mass or hydronephrosis. Cortex is well preserved. Fabien Sterling MD FACR Head CT 01/04/17 0000 Signed Impressions: Service Date/Time: Wednesday, January 04, 2017 10:22 - CONCLUSION: 1. Normal appearance of the brain. Rob Strauss MD Upper Extremity Ultrasound 01/03/17 0000 Signed Impressions: Service Date/Time: Tuesday, January 03, 2017 11:49 - CONCLUSION: Negative for deep venous thrombosis. Fabien Sterling MD FACR Central Venous Line 12/31/16 0000 Signed Impressions: Service Date/Time: Saturday, December 31, 2016 00:00 - CONCLUSION: Uncomplicated Permcath removal. Marky Cid MD Objective Remarks General: NAD, AAOx3 Chest: CTA Cardiac: Regular Abd: +BS, soft ND/NT Ext: No edema A/P Problem List: (1) Sepsis ICD Codes: A41.9 - Sepsis, unspecified organism Status: Acute Plan: - Pt is 61 yo woman with advance multiple sclerosis. She has been receiving weekly plasmapheresis on Tuesdays - She presented to the ED with complaints of productive cough that began around 2 - 3 weeks ago. Received around 11 days Levaquin initially but no improvement. - Pt was seen in ED and had sputum and blood cx on 12/24 and was diagnosed with bronchitis then discharged. - Pt was called back to ED 12/28 for positive sputum MRSA/pseudomonas and blood cx staph epi 2/4 - Pt says her hands were also getting weak and MS starting to flare. She has also missed her last 2 treatments. - SPC was last changed around 12/19 per the pt. It is changed monthly per the pt. - blood Cx (12/30/16) - Staph Epi 3/4 bottles - urine cx (12/28) --> pseudomonas, enterococcus - sputum cx (12/29) --> pseudomonas - blood cx (12/30) from permcath - staph epi - PermCath removed (12/31/16) d/t infection. tip cx --> less than 15 CFU - repeat blood cx (01/01/17) --> NGTD - repeat Blood Cx (01/02/17) --> NGTD - Echocardiogram (12/31/16) --> no vegetations noted, EF 55-60% - SHADY (01/03/17) --> NO vegetation - hold off on placing new PermCath until bacteremia resolved - so no plasmapheresis at this time - In the ED pt was given Primaxin as best ALEJANDRINA. - Vanco (12/29 - 01/02) Vanc stopped due to high levels and worsening renal function. - Zosyn and (12/29 - 01/04) - Daptomycin started on 01/07 - Vanco levels decreasing- Daptomycin started to complete therapy for bacteremia. - Cont prn duonebs and Mucomyst - 01/04/17 repeat CXR--> no acute disease - Pt reported vaginal bleeding and a foul odor, [employer] evaluated and pt found to have a 1cm laceration on the vaginal wall which was likely the source of the bleeding. No evidence of infection. - Repeat Blood Cx (01/10) --> NGTD - Repeat Blood Cx (01/11) --> NGTD - NO diarrhea - continue Daptomycin at least 4 weeks from date of last (+) blood cultures or removal of PermCath per ID recommendation - PT and OT - Supportive care - DVT prophylaxis - Tmax 99.2 - repeat blood cultures showed NO growth - NO leukocytosis - PICC line placed today - case d/w ID today, (01/15/17) (2) Bronchopneumonia ICD Codes: J18.0 - Bronchopneumonia, unspecified organism Plan: - Improved - See above. (3) THONG (acute kidney injury) ICD Codes: N17.9 - Acute kidney failure, unspecified Plan: - resolved - THONG due to AIN from vanco vs zosyn - Vancomycin and Zosyn DC'd 01/04/17 - Appreciate nephrology input - Cr has been improving, down to 1.21 (01/16) - Pt with good urine output - Monitor labs (4) Multiple sclerosis ICD Codes: G35 - Multiple sclerosis Status: Chronic Plan: - Pt has missed her last two plasmapheresis sessions prior to admission - Pt reports weakness in the UE - see above - Pt requests reevaluation by Neurology, RE: MS medications (5) Chronic indwelling Mendoza catheter ICD Codes: Z92.89 - Personal history of other medical treatment Status: Chronic Plan: - SPC last changed on 12/19 - Repeat UA on 01/10 was negative (6) Essential hypertension ICD Codes: I10 - Essential (primary) hypertension Status: Chronic Plan: - Controlled - Continue Clonidine 0.2 mg Q6H PRN SBP >160, Nifedipine 60 mg PO daily, Nifedipine 30 mg PO QHS - Monitor BP - Lisinopril 20mg daily held due to THONG (7) Fibromyalgia ICD Codes: M79.7 - Fibromyalgia Status: Chronic Plan: consult Dr. Suggs who recommended restarting Rebif 44 mcg SC 3x a week - restarted Rebif 44 mcg SC 3x a week (8) Lupus (systemic lupus erythematosus) ICD Codes: M32.9 - Systemic lupus erythematosus, unspecified Status: Chronic (9) Altered mental status ICD Codes: R41.82 - Altered mental status, unspecified Status: Resolved Plan: - Improving - CT head ordered and reviewed no acute finding - see THONG above Assessment and Plan Patient examined. Assessment and plan formulated with Autumn Maldonado PA-C. I agree with the above. Autumn Maldonado Jan 16, 2017 11:00 Jan Stevens DO Jan 20, 2017 12:33
[2017-01-16 12:00] VITALS: BP 142/78; PULSE 89; RESP 16; TEMP 98.3; O2SAT 96
[2017-01-16] MEDS: DAPTOmycin INJ 650 MG in SODIUM CHLORIDE 0.9% INJ 100 ML IV SCH (12:34)
[2017-01-16] MEDS ORDERED: SODIUM CHLORIDE 0.9% FLUSH 10 ML FLUSH IV FLUSH PRN (12:45)
--- NOTE | 2017-01-16 14:38 | RADRPT ---
EXAM DATE/TIME: 01/16/2017 12:02 [facility] COMPARISON: CHEST SINGLE AP, January 13, 2017, 16:32. INDICATIONS : PICC line placement. MEDICAL HISTORY : Cardiovascular disease. Multiple sclerosis. Methicillin-resistant SURGICAL HISTORY : Cholecystectomy. Hysterectomy. ENCOUNTER: Subsequent ACUITY: 3 weeks PAIN SCORE: 2/10 LOCATION: Bilateral upper chest FINDINGS: A right-sided PICC line has its tip in the superior vena cava. The heart is mildly prominent. Right basilar patchiness is noted consistent with atelectasis and/or infiltrate. The left lung is relativ anjali clear. CONCLUSION: 1. Right basilar patchiness consistent with atelectasis and/or infiltrate. 2. Right-sided PICC line has its tip in the superior vena cava. Manuel Adam MD on January 16, 2017 at 13:20 Board Certified Radiologist. This report was verified electronically.
[2017-01-16 16:00] VITALS: BP 137/77; PULSE 94; RESP 16; TEMP 98.5; O2SAT 96
[2017-01-16 20:00] VITALS: BP 132/80; PULSE 85; RESP 17; TEMP 99; O2SAT 97
[2017-01-16] MEDS: NIFEdipine 10 MG CAP PO SCH (21:00)
[2017-01-17] VITALS: BP 152/73; PULSE 95; RESP 17; TEMP 98.9; O2SAT 97
[2017-01-17 01:23] VITALS: O2SAT 100
[2017-01-17] MEDS: HYDROmorphone HCL 4 MG TAB PO PRN ×2 (04:35→15:32)
[2017-01-17 08:00] VITALS: BP 143/85; PULSE 111; RESP 20; TEMP 98.7; O2SAT 94
--- NOTE | 2017-01-17 08:41 | HHI.DS ---
Discharge Summary Admission Date Dec 28, 2016 at 22:30 Discharge Date: Jan 17, 2017 Admitting Diagnosis bronchopna (1) Sepsis ICD Codes: A41.9 - Sepsis, unspecified organism Status: Acute (2) Bronchopneumonia ICD Codes: J18.0 - Bronchopneumonia, unspecified organism (3) THONG (acute kidney injury) ICD Codes: N17.9 - Acute kidney failure, unspecified (4) Multiple sclerosis ICD Codes: G35 - Multiple sclerosis Status: Chronic (5) Chronic indwelling Mendoza catheter ICD Codes: Z92.89 - Personal history of other medical treatment Status: Chronic (6) Essential hypertension ICD Codes: I10 - Essential (primary) hypertension Status: Chronic (7) Fibromyalgia ICD Codes: M79.7 - Fibromyalgia Status: Chronic (8) Lupus (systemic lupus erythematosus) ICD Codes: M32.9 - Systemic lupus erythematosus, unspecified Status: Chronic (9) Altered mental status ICD Codes: R41.82 - Altered mental status, unspecified Status: Resolved Consultants ID Dr. Wynn Hematology/oncology Dr Trevino Cardiology Dr. Holly Nephrology Dr. Foote BOX PACKER Dr. Yu Neurology Dr. Suggs Procedures 12/31/16 removal of PermCath 01/03/17 SHADY Brief History Pt is 61 yo woman with advance multiple sclerosis. Weekly plasmapheresis on Friday Past 2 - 3 weeks productive yellow/green cough. Received around 11 days levaquin. no improvement. Seen in ED and had sputum and blood cx..diagnosed with bronchitis then discharged. Called back to ED 12/28 for positive sputum mrsa/pseudomonas and blood cx staph epi 2/4 Pt says her hands were also getting weak and MS starting to flare. She has also missed her last 2 treatments. ED gave Primaxin as best ALEJANDRA. Vanco also started. She was then given zosyn and most abx have poor alejandra This morning pt says she is feeling stronger and breathing seems better as well. CBC/BMP: 01/13/17 0527 01/16/17 0641 Significant Findings Laboratory Tests Test 01/14/17 12:16 01/16/17 06:41 Creatinine 1.25 MG/DL (0.50-1.00) 1.21 MG/DL (0.50-1.00) Random Glucose 124 MG/DL (74-106) Chloride Level 112 MEQ/L (98-107) Estimat Glomerular Filtration Rate 53 ML/MIN (>89) 55 ML/MIN (>89) Potassium Level 3.1 MEQ/L (3.5-5.1) Imaging Last Impressions Chest X-Ray 01/16/17 0000 Signed Impressions: Service Date/Time: January 12:02 - CONCLUSION: 1. Right basilar patchiness consistent with atelectasis and/or infiltrate. 2. Right-sided PICC line has its tip in the superior vena cava. Manuel Adam MD Renal Ultrasound 01/04/17 0000 Signed Impressions: Service Date/Time: Wednesday, January 04, 2017 14:08 - CONCLUSION: Negative for mass or hydronephrosis. Cortex is well preserved. Fabien Setrling MD FACR Head CT 01/04/17 0000 Signed Impressions: Service Date/Time: Wednesday, January 04, 2017 10:22 - CONCLUSION: 1. Normal appearance of the brain. Rob Strauss MD Upper Extremity Ultrasound 01/03/17 0000 Signed Impressions: Service Date/Time: Tuesday, January 03, 2017 11:49 - CONCLUSION: Negative for deep venous thrombosis. Fabien Sterling MD FACR Central Venous Line 12/31/16 0000 Signed Impressions: Service Date/Time: Saturday, December 31, 2016 00:00 - CONCLUSION: Uncomplicated Permcath removal. Marky Cid MD PE at Discharge General: NAD, AAOx3 Chest: CTA Cardiac: Regular Abd: +BS, soft ND/NT Ext: No edema Hospital Course Sepsis - Pt is 61 yo woman with advance multiple sclerosis. She has been receiving weekly plasmapheresis on Tuesdays - She presented to the ED with complaints of productive cough that began around 2 - 3 weeks ago. Received around 11 days Levaquin initially but no improvement. - Pt was seen in ED and had sputum and blood cx on 12/24 and was diagnosed with bronchitis then discharged. - Pt was called back to ED 12/28 for positive sputum MRSA/pseudomonas and blood cx staph epi 2/ - Pt says her hands were also getting weak and MS starting to flare. She has also missed her last 2 treatments. - SPC was last changed around 12/19 per the pt. It is changed monthly per the pt. - blood Cx (12/30/16) - Staph Epi 3/4 bottles - urine cx (12/28) --> pseudomonas, enterococcus - sputum cx (12/29) --> pseudomonas - blood cx (12/30) from permcath - staph epi - PermCath removed (12/31/16) d/t infection. tip cx --> less than 15 CFU - repeat blood cx (01/01/17) --> NGTD - repeat Blood Cx (01/02/17) --> NGTD - Echocardiogram (12/31/16) --> no vegetations noted, EF 55-60% - SHADY (01/03/17) --> NO vegetation - hold off on placing new PermCath until bacteremia resolved - so no plasmapheresis at this time - In the ED pt was given Primaxin as best ALEJANDRA. - Vanco (12/29 - 01/02) Vanc stopped due to high levels and worsening renal function. - Zosyn and (12/29 - 01/04) - Daptomycin started on 01/07 - Vanco levels decreasing- Daptomycin started to complete therapy for bacteremia. - Cont prn duonebs and Mucomyst - 01/04/17 repeat CXR--> no acute disease - Pt reported vaginal bleeding and a foul odor, BOX PACKER evaluated and pt found to have a 1cm laceration on the vaginal wall which was likely the source of the bleeding. No evidence of infection. - Repeat Blood Cx (01/10) --> NGTD - Repeat Blood Cx (01/11) --> NGTD - NO diarrhea - continue Daptomycin at least 4 weeks from date of last (+) blood cultures or removal of PermCath per ID recommendation - PT and OT - Supportive care - DVT prophylaxis - Tmax 99.2 - repeat blood cultures showed NO growth - NO leukocytosis - PICC line placed today - case d/w ID today, (01/15/17) Bronchopneumonia - Improved - See above. THONG (acute kidney injury) - resolved - THONG due to AIN from vanco vs zosyn - Vancomycin and Zosyn DC'd 01/04/17 - Appreciate nephrology input - Cr has been improving, down to 1.21 (01/16) - Pt with good urine output - Monitor labs Multiple sclerosis - Pt has missed her last two plasmapheresis sessions prior to admission - Pt reports weakness in the UE - see above - Pt requests reevaluation by Neurology, RE: MS medications Chronic indwelling Mendoza catheter - SPC last changed on 12/19 - Repeat UA on 01/10 was negative Essential hypertension - Controlled - Continue Clonidine 0.2 mg Q6H PRN SBP >160, Nifedipine 60 mg PO daily, Nifedipine 30 mg PO QHS - Monitor BP - Lisinopril 20mg daily held due to THONG Fibromyalgia - consult Dr. Suggs who recommended restarting Rebif 44 mcg SC 3x a week - restarted Rebif 44 mcg SC 3x a week Lupus (systemic lupus erythematosus) Chronic Altered mental status -resolved - CT head ordered and reviewed no acute finding - see THONG above Pt Condition on Discharge: Stable Discharge Disposition: Discharge to SNF Discharge Instructions DIET: Follow Instructions for: Heart Healthy Diet Activities you can perform: Regular-No Restrictions Follow up Referrals: Neurology - [address] Suggs Oncology - [address] Trevino PCP Follow-up - [address] Mann New Orders: BASIC METABOLIC PROF - 1 Week CBC WITH DIFF - 1 Week CREATININE KINASE - 1 Week New Medications: Mirtazapine (Remeron) 30 Mg Tab 30 MG PO HS for Depression Control, #30 TAB 0 Refills Continued Medications: Aspirin (Aspirin) 325 Mg Tab 325 MG PO DAILY, #30 TAB 0 Refills B-Complex Vitamins (Vitamin B Complex) 1 Tab 1 TAB PO DAILY Cholecalciferol (D 83502) 10,000 Unit Cap 16516 UNITS PO DAILY Clonidine (Catapres) 0.2 Mg Tab 0.2 MG PO TID for Blood Pressure Management, #60 TAB 0 Refills Gabapentin (Neurontin) 300 Mg Cap 600 MG PO BID for peripheral neuropathy, #62 CAP Gabapentin (Neurontin) 300 Mg Cap 300 MG PO DAILY@1300 for peripheral neuropathy, #31 CAP Guaifenesin-Dextromethorphan Liq (Guaifenesin DM Liq) 10-100 Mg/5 Ml Liq 10 ML PO Q6HR PRN for COUGH, #1 BOTTLE 0 Refills Hydromorphone (Dilaudid) 4 Mg Tab 4 MG PO Q8H PRN for PAIN, #75 TAB 0 Refills (This prescription has been renewed) Hydroxychloroquine (Plaquenil) 200 Mg Tab 200 MG PO BID, #60 TAB 0 Refills Take with food Interferon Beta-1A Pen Inj (Rebif Rebidose Pen Inj) 44 Mcg/0.5 Ml Pen 44 MCG SQ MOWEFR for Multiple sclerosis, PEN 0 Refills Inject 44mcg sq three times a week on Friday,Friday and Friday Ipratropium Neb (Ipratropium Neb) 0.5 Mg/2.5 Ml Amp 0.5 MG NEB Q4HR NEB for Breathing Treatment, #30 NEBULE 0 Refills Methenamine Hippurate (Hiprex) 1 Gm Tab 1 GM PO BID for Infection, TAB 0 Refills Nifedipine (Nifedipine) 10 Mg Cap 30 MG PO HS for HTN, #120 CAP 0 Refills Nifedipine ER 24 HR (Procardia XL) 60 Mg Tab 60 MG PO DAILY, #30 TAB 0 Refills Pantoprazole (Protonix) 20 Mg Tab 20 MG PO DAILY for Reflux, #30 TAB 0 Refills Potassium Chloride ER (Potassium Chloride ER) 20 Meq Tab 20 MEQ PO DAILY for Electrolyte Replacement, #30 TAB 0 Refills Vitamins C & E (Cranberry Urinary Comfort) 1 Cap 1 CAP PO DAILY for Urinary Symptom Managemen, CAP 0 Refills Discontinued Medications: Fesoterodine ER (Toviaz ER) 8 Mg Lou 8 MG PO DAILY for Overactive bladder, #30 TAB 0 Refills Furosemide (Furosemide) 40 Mg Tab 40 MG PO DAILY, #30 TAB 0 Refills Lisinopril (Lisinopril) 20 Mg Tab 20 MG PO DAILY, #30 TAB 0 Refills Additional Information Patient examined. Assessment and plan formulated with Autumn Maldonado PA-C. I agree with the above. Case d/w ID, Dr. Wynn prior to discharge 01/17/17. Pt will need to complete course of IV cubacin thru 01/27. Consider replacing PermCath after course of antibiotics for pt's plasmapheresis treatments. Pt c/o worsening weakness and poor PO intake. Start Remeron 30m qPM. Physical therapy at [facility]. Autumn Maldonado Jan 17, 2017 08:41 Jan Stevens DO Jan 20, 2017 12:41
[2017-01-17] MEDS ORDERED: SODIUM CHLORIDE 0.9% FLUSH 10 ML FLUSH IV FLUSH SCH (09:00)
[2017-01-17] MEDS: METHENAMINE HIPPURATE 1 GM PO SCH (09:08)
[2017-01-17] MEDS: guaiFENesin E.R. 600 MG TAB PO SCH (09:09)
[2017-01-17] MEDS: PANTOPRAZOLE SOD 20 MG DELAYED RELEASE TAB PO SCH (09:09)
[2017-01-17] MEDS: GABAPENTIN 300 MG CAP PO SCH ×2 (09:09→12:41)
[2017-01-17] MEDS: HYDROXYCHLOROQUINE SULFATE 200 MG TAB PO SCH (09:09)
[2017-01-17] MEDS: ASPIRIN 325 MG TAB PO SCH (09:10)
[2017-01-17] MEDS: NIFEdipine 60 MG SUSTAINED RELEASE TAB PO SCH (09:10)
[2017-01-17] MEDS: cloNIDine HCL 0.2 MG TAB PO SCH ×2 (09:10→12:41)
[2017-01-17] MEDS: SODIUM CHLOR 0.9% 1000 ML INJ 1,000 ML IV SCH (09:10)
[2017-01-17] MEDS ORDERED: DILA4TAB2 PO (11:15)
--- NOTE | 2017-01-17 11:17 | HHI.FF ---
Infusion Therapy Location of Infusion Therapy: [facility] Infusion Therapy Order Patient Information Patient Weight 108.3 kg Diagnosis: Diagnosis High grade Staph epi bacteremia due to permacath infection Coded Allergies: adhesive (Unverified Allergy, Severe, Rash, 12/28/16) albuterol (Unverified Allergy, Severe, SORES, 12/28/16) codeine (Unverified Allergy, Severe, SWELLING AND DIFFICULTY BREATHING, ) hydrocodone (Unverified Allergy, Severe, RASH AND SWELLING, 12/28/16) isradipine (Unverified Allergy, Severe, ELEVATED HEART RATE, 12/28/16) methylprednisolone (Unverified Allergy, Severe, Shortness of Breath, ) oxycodone (Unverified Allergy, Severe, ITCHING, 12/28/16) Administer Medication Cubicin 650 mg IV daily Stop Treatment: Jan 27, 2017 Additional Information Venous access: PICC Line Additional Instructions [x] Peripheral flush and dressing changes per protocol [x] 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 [] May leave port accessed during therapy. [] May leave peripheral site accessed for duration of therapy. [x] If patient has SOB or respiratory distress, check oxygen saturation. If less than 90% or clinical signs of respiratory distress, administer oxygen at 2 L/min. via nasal cannula and notify physician. [x] Anaphylaxis/Reaction orders: * Stop infusion. * Keep IV line open with saline flush. * Notify physician. * Monitor vital signs every 15 minutes until symptoms resolve. * Check Oxygen saturation; Oxygen at 2 L/min. via nasal cannula if less than 90% or clinical signs of respiratory distress. * Administer diphenhydramine (Benadryl) 25 mg IV STAT, (unless patient has received as pre-med). May repeat once, if necessary. * Solu-Cortef 250 mg IVP over 30-60 seconds, use 100 mg vials for each dissolution. * Epinephrine (1mg/1 ml) 0.3 mg subcutaneously or IVP now with any signs of respiratory distress. * Check with physician for new additional pre-med orders if patient is re- challenged or re-treated. [x] May remove PICC line when treatment complete, after confirming with Physician. [x] If the patient is admitted to the hospital, the ED, or transferred via [facility] , complete transfer form including medication reconciliation order sheet. Laboratory Tests Weekly Labs: CBC w/diff, Creatinine, Serum CK Levels (Labs every Friday while on Cubicin - copy to [place] - fax [phone]) Mili Wynn MD Jan 17, 2017 11:17
--- NOTE | 2017-01-17 11:22 | HHI.DCPOC ---
Discharge Care Plan Diagnosis: (1) Bacteremia (2) Multiple sclerosis (3) Bronchopneumonia (4) Multiple sclerosis exacerbation (5) THONG (acute kidney injury) Goals to Promote Your Health * To prevent worsening of your condition and complications * To maintain your health at the optimal level Directions to Meet Your Goals Take your medications as prescribed Follow your dietary instruction Follow activity as directed Keep your appointments as scheduled Take your immunizations and boosters as scheduled If your symptoms worsen call your PCP, if no PCP go to Urgent Care Center or Emergency Room Smoking is Dangerous to Your Health. Avoid second hand smoke Call the 24-hour hour crisis hotline for domestic abuse at Autumn Maldonado Jan 17, 2017 11:22 Jan Stevens DO Jan 20, 2017 12:34
[2017-01-17 11:41] LABS: BICARBONATE 26.3 MEQ/L (21.0-32.0); POTASSIUM 3.2 MEQ/L (3.5-5.1)
[2017-01-17] MEDS ORDERED: REME30TA PO (11:49)
[2017-01-17 12:00] VITALS: BP 129/67; PULSE 86; RESP 18; TEMP 97.9; O2SAT 96
[2017-01-17] MEDS ORDERED: POTASSIUM CHLORIDE 10 MEQ CONTROLLED RELEASE TAB PO ONE (12:15)
[2017-01-17] MEDS: DAPTOmycin INJ 650 MG in SODIUM CHLORIDE 0.9% INJ 100 ML IV SCH (12:41)
[2017-01-17] MEDS ORDERED: MIRTAZAPINE 15 MG TAB PO SCH (21:00)
== END 2017-01-17 16:25 | DRG 314 ==
LOC: NEPD 19:53 → NEDA 22:30 → N06A 23:09 → N07B 12-29 06:06
PROVIDERS: ADMIT Hospitalist; ATTEND Hospitalist
PROC: 05PYX3Z Removal of Infusion Device from Upper Vein, External Approach (ICD-10-PCS; 2016-12-31)
PROC: B246ZZ4 Ultrasonography of Right and Left Heart, Transesophageal (ICD-10-PCS; principal; 2017-01-03)
DX: T80.211A Bloodstream infection due to central venous catheter, initial encounter (principal); J18.0 Bronchopneumonia, unspecified organism; N17.8 Other acute kidney failure; A41.9 Sepsis, unspecified organism; M32.9 Systemic lupus erythematosus, unspecified; T82.7XXA Infection and inflammatory reaction due to other cardiac and vascular devices, implants and grafts, initial encounter; N17.9 Acute kidney failure, unspecified; N39.0 Urinary tract infection, site not specified; T83.090A Other mechanical complication of cystostomy catheter, initial encounter; E66.01 Morbid (severe) obesity due to excess calories; G35 Multiple sclerosis; K31.84 Gastroparesis; N31.9 Neuromuscular dysfunction of bladder, unspecified; M48.02 Spinal stenosis, cervical region; I10 Essential (primary) hypertension; F31.9 Bipolar disorder, unspecified; M79.7 Fibromyalgia; M06.9 Rheumatoid arthritis, unspecified; E78.00 Pure hypercholesterolemia, unspecified; Z87.440 Personal history of urinary (tract) infections; Z93.59 Other cystostomy status; F41.9 Anxiety disorder, unspecified; M19.90 Unspecified osteoarthritis, unspecified site; S31.41XA Laceration without foreign body of vagina and vulva, initial encounter; X58.XXXA Exposure to other specified factors, initial encounter; Y93.9 Activity, unspecified; Y92.9 Unspecified place or not applicable; T36.8X5A Adverse effect of other systemic antibiotics, initial encounter; T36.0X5A Adverse effect of penicillins, initial encounter; Y92.239 Unspecified place in hospital as the place of occurrence of the external cause; Y73.8 Miscellaneous gastroenterology and urology devices associated with adverse incidents, not elsewhere classified; K21.9 Gastro-esophageal reflux disease without esophagitis; R41.82 Altered mental status, unspecified; S31.829A Unspecified open wound of left buttock, initial encounter; S31.819A Unspecified open wound of right buttock, initial encounter
CPT/HCPCS: 36569; 36589; 70450; 71010; 71020; 76775; 76937; 80048; 80053; 80202; 81001; 82550; 83605; 83735; 84132; 85025; 86403; 87040; 87070; 87071; 87077; 87086; 87186; 87205; 87493; 93306; 93312; 93320; 93325; 93971; 94640; 94664; 96365; J0131; J0743; J0878; J1642; J1644; J2405; J2543; J3370; J7030; J7040; J7050; J7608; J7644; Q0169

== ENCOUNTER 2017-01-29 18:19 | Observation (INO) | payer MEDICARE ==
[~2017-01-29] VITALS: Ht 175.3 cm; Wt 115.0 kg
[~2017-01-29 18:19] MED LIST changes: -FURO40TA PO; -LISI-515 PO; +REME30TA PO; -TOVI8TAB PO
[2017-01-29 18:45] VITALS: BP 117/68; PULSE 88; RESP 20; TEMP 98.9; O2SAT 95
[2017-01-29 19:15] VITALS: BP 121/68; PULSE 84; RESP 18; O2SAT 97
[2017-01-29 20:17] LABS: AUTOMATED NEUTROPHIL # 2.7 TH/MM3 (1.8-7.7); BASOPHIL # 0.1 TH/MM3 (0-0.2); BASOPHIL % 1.4 % (0.0-2.0); HEMATOCRIT 29.2 % (35.0-46.0); HEMO FLAGS DIFF FINAL; LYMPH % 35.6 % (9.0-44.0); LYMPHOCYTE # 2.5 TH/MM3 (1.0-4.8); MEAN CELL VOLUME 81.6 FL (80.0-100.0); MEAN CORPUSCULAR HEMOGLOBIN 26.3 PG (27.0-34.0); MEAN CORPUSCULAR HGB CONC 32.3 % (32.0-36.0); MONO % 10.9 % (0.0-8.0); NEUT % 38.1 % (16.0-70.0); PLATELET COUNT 439 TH/MM3 (150-450); RED BLOOD COUNT 3.57 MIL/MM3 (4.00-5.30); RED CELL DISTRIBUTION WIDTH 17.2 % (11.6-17.2); WHITE BLOOD COUNT 7.1 TH/MM3 (4.0-11.0)
[2017-01-29 20:26] LABS: PROTHROMBIN TIME - PATIENT 10.7 SEC (9.8-11.6)
[2017-01-29 20:40] LABS: ALT (GPT) 184 U/L (10-53); ANION GAP 7 MEQ/L (5-15); AST (GOT) 383 U/L (15-37); CHLORIDE 104 MEQ/L (98-107); GLOMERULAR FILTRATION RATE 54 ML/MIN (>89); POTASSIUM 3.8 MEQ/L (3.5-5.1); SODIUM (NA) 139 MEQ/L (136-145)
[2017-01-29] MEDS ORDERED: FURO40TA PO (20:41)
[2017-01-29] MEDS ORDERED: FLOR250C PO (20:41)
[2017-01-29] MEDS ORDERED: DEXT1CAP5 PO (20:41)
[2017-01-29] MEDS ORDERED: LISI-515 PO (20:41)
[2017-01-29 20:46] LABS: ALKALINE PHOSPHATASE 511 U/L (45-117); BLOOD UREA NITROGEN 21 MG/DL (7-18); TOTAL BILIRUBIN ADULT 0.2 MG/DL (0.2-1.0)
--- NOTE | 2017-01-29 22:40 | PD ---
HPI Chief Complaint: General Weakness Time Seen by Provider: 18:57 Travel History International Travel<30 days: No Contact w/Intl Traveler<30days: No Traveled to known affect area: No History of Present Illness HPI The patient is a 61 year old female who presents to the [facility] emergency department with a history of reportedly intermittently feeling disoriented throughout the day today. According to the care home record the patient was having staring episodes and was slow to answer when she was spoken to. This is a change from her baseline of mentation. The patient denies having any known fevers. The patient's medical history is complicated by having a history of multiple sclerosis, recent admission with sepsis from pneumonia. She reports that she completed her course of antibiotics by PICC line in the right upper extremity on Friday. The patient at this time is awake and alert. She reports that she is concerned that the disorientation may be related to sepsis again. She reports that when she was septic last time she did not have fevers. The patient reports that she has had a diminished appetite , however she is on dietary supplement which has been helping. She denies having any cough, congestion, chest pain, chest pressure, or shortness of breath. She denies having any vomiting or diarrhea. She reports that she does have a suprapubic catheter in place that did have new some purulent and bloody drainage when it was cleaned earlier today. She denies any prior history of seizures. She was previously on plasmapheresis through a Vas-Cath, however she reports that this has been discontinued. The patient continues have a PICC line in place, however she reports that it is not being used since antibiotic was discontinued. The patient denies having any abdominal pain. [facility] Past Medical History Narrative Medical The patient's past medical history is significant for advanced multiple sclerosis, fibromyalgia, bipolar disorder, history of obesity, hypertension, lupus, gastroparesis, recurrent UTIs, chronic indwelling suprapubic catheter. Hx Anticoagulant Therapy: Yes (ASA ) Arthritis: Yes Asthma: No Autoimmune Disease: Yes (LUPUS, MS, RA AND SPINAL STENOSIS) Blood Disorders: No Bipolar Disorder: Yes Anxiety: Yes Depression: No Heart Rhythm Problems: No Cancer: No Cardiac Catheterization: No Cardiovascular Problems: Yes High Cholesterol: No Chemotherapy: No Chest Pain: Yes Congestive Heart Failure: No COPD: No Cerebrovascular Accident: No Diabetes: No Diminished Hearing: No Endocrine: No Fibromyalgia: Yes Gastrointestinal Disorders: Yes (BOWEL EMPTYING PROBLEMS) GERD: Yes Genitourinary: Yes (uti, suprapubic catheter,left flank pain) Headaches: Yes (occ) Hepatitis: No Hiatal Hernia: No Hypertension: Yes Immune Disorder: Yes (lupus, ra, fibromyalgia) Implanted Vascular Access Dvce: Yes Kidney Stones: No Medical other: Yes (HX MENINGITIS, LUPUS, FIBROMYALGIA) Musculoskeletal: Yes (left leg weakness) Neurologic: No Psychiatric: Yes Reproductive: Yes (partial hysterectomy ) Respiratory: No Immunizations Current: Yes Migraines: Yes Radiation Therapy: No Renal Failure: No Seizures: No Sickle Cell Disease: No Sleep Apnea: No Thyroid Disease: No Ulcer: Yes Influenza Vaccination: No PNEUMOCCOCAL Vaccine (Year): 2 Menopausal: Yes : 3 Para: 2 Miscarriage: 1 Ovarian Cysts: Yes Tubal Ligation: Yes Past Surgical History Narrative Surgical The patient has a history of a suprapubic catheter placement, history of seizure 3 through C6 anterior cervical discectomy and arthrodesis for severe cervical stenosis, history of C6 through C7 anterior cervical discectomy with arthrodesis, right ankle ORIF, laparoscopic cholecystectomy, arthroscopic surgery of the knee, hysterectomy, permacath placement and then removal. Abdominal Surgery: No AICD: No Appendectomy: No Arteriovenous Shunt: No Body Medical Devices: screws in right leg Cardiac Surgery: No Cholecystectomy: Yes Coronary Artery Bypass Graft: No Ear Surgery: No Endocrine Surgery: No Eye Surgery: No Genitourinary Surgery: No Gynecologic Surgery: Yes Hysterectomy: Yes (PARTIAL) Insulin Pump: No Joint Replacement: No Neurologic Surgery: Yes ( C 2-3 AND 5-6 FUSION 2004) Oral Surgery: No Pacemaker: No Thoracic Surgery: No Other Surgery: Yes (cervical fusion, amina, partial hysterectomy) Family History Family Myocardial Infarction: Yes Social History Alcohol Use: No Tobacco Use: No Substance Use: No Allergies-Medications (Allergen,Severity, Reaction): Coded Allergies: adhesive (Unverified Allergy, Severe, Rash, 01/29/17) albuterol (Unverified Allergy, Severe, SORES, 01/29/17) codeine (Unverified Allergy, Severe, SWELLING AND DIFFICULTY BREATHING, ) hydrocodone (Unverified Allergy, Severe, RASH AND SWELLING, 01/29/17) isradipine (Unverified Allergy, Severe, ELEVATED HEART RATE, 01/29/17) methylprednisolone (Unverified Allergy, Severe, Shortness of Breath, ) oxycodone (Unverified Allergy, Severe, ITCHING, 01/29/17) Reported Meds & Prescriptions Reported Meds & Active Scripts Active Remeron (Mirtazapine) 30 Mg Tab 30 Mg PO HS Dilaudid (Hydromorphone HCl) 4 Mg Tab 4 Mg PO Q8H PRN Ipratropium Neb (Ipratropium [place]) 0.5 Mg/2.5 Ml Amp 0.5 Mg NEB Q4HR NEB Neurontin (Gabapentin) 300 Mg Cap 300 Mg PO DAILY@1300 Neurontin (Gabapentin) 300 Mg Cap 600 Mg PO BID Reported Robitussin Cough Chest Congestion (Dextromethorphan-Guaifenesin) 10-200 Mg Cap 10 Ml PO Q6HR PRN Lisinopril 20 Mg Tab 20 Mg PO Q12HR Florastor (Saccharomyces Boulardii) 250 Mg Cap 250 Mg PO BID 14 Days Furosemide 40 Mg Tab 40 Mg PO DAILY Rebif Rebidose Pen Inj (Interferon Beta 1a) 44 Mcg/0.5 Ml Pen 44 Mcg SQ MOWEFR Inject 44mcg sq three times a week on Friday,Friday and Friday Hiprex (Methenamine Hippurate) 1 Gm Tab 1 Gm PO BID Cranberry Urinary Comfort (Vitamins C & E) 1 Cap 1 Cap PO DAILY Nifedipine 10 Mg Cap 30 Mg PO HS Protonix (Pantoprazole Sodium) 20 Mg Tab 20 Mg PO DAILY Procardia XL (Nifedipine) 60 Mg Tab 60 Mg PO DAILY Plaquenil (Hydroxychloroquine Sulfate) 200 Mg Tab 200 Mg PO BID Take with food Potassium Chloride ER (Potassium Chloride) 20 Meq Tab 20 Meq PO DAILY Catapres (Clonidine) 0.2 Mg Tab 0.2 Mg PO TID Aspirin 325 Mg Tab 325 Mg PO DAILY D 77022 (Cholecalciferol) 10,000 Unit Cap 10,000 Units PO DAILY Vitamin B Complex (B-Complex Vitamins) 1 Tab 1 Tab PO DAILY Review of Systems Except as stated in HPI: all other systems reviewed are Neg General / Constitutional: No: Fever Eyes: No: Visual changes HENT: No: Headaches Cardiovascular: No: Chest Pain or Discomfort Respiratory: No: Shortness of Breath Gastrointestinal: Positive: Loss of Appetite, No: Nausea, Vomiting, Diarrhea, Abdominal Pain, Changes in Bowel Habits, Indigestion Genitourinary: No: Dysuria Musculoskeletal: No: Pain Skin: No Rash Neurologic: Positive: Change in Mentation, No: Weakness, Focal Abnormalities, Slurred Speech, Sensory Disturbance Psychiatric: No: Depression Endocrine: No: Polydipsia Hematologic/Lymphatic: No: Easy Bruising Physical Exam Narrative General: The patient is a well-developed well-nourished female in no acute distress. Head and Neck exam: Head is normocephalic atraumatic. Eyes: EOMI, pupils are equal round and reactive to light. Nose: Midline septum with pink mucous membranes Mouth: Dentition unremarkable. Moist mucus membranes. Posterior oropharynx is not erythematous. No tonsillar hypertrophy. Uvula midline. Airway patent. Neck: No palpable lymphadenopathy. No nuchal rigidity. No thyromegaly. Cardiovascular: Regular rate and rhythm without murmurs, gallops, or rubs. Lungs: Clear to auscultation bilaterally. No wheezes, rhonchi, or rales. Abdomen: Soft, with reported tenderness on palpation over the midepigastric area and left upper quadrant of the abdomen, no other tenderness on palpation of the other quadrants of the abdomen. No guarding, rebound, or rigidity. Normal bowel sounds are audible. No tenderness on palpation of McBurney's point. Negative Diehl's sign. The patient has a suprapubic catheter in place that appears to be in good repair, however she reports that there was some bloody purulent drainage from and this morning. Extremities: No clubbing or cyanosis. The patient has trace pedal edema bilateral lower extremities per 2+ pulses in all 4 extremities. Back: No costovertebral angle tenderness to palpation. Neurologic Exam: The patient is at her baseline for mentation. The patient does have a history of weakness related to multiple sclerosis, however she denies any changes are new neurologic symptoms at this time. Skin Exam: No rash noted. Intact skin that is warm and dry. Data Data Last Documented VS Vital Signs Date Time Temp Pulse Resp B/P (MAP) Pulse Ox O2 Delivery O2 Flow Rate FiO2 01/29/17 23:05 90 18 116/65 (82) 98 Room Air 01/29/17 18:45 98.9 Orders Orders Complete Blood Count With Diff (01/29/17 19:34) Comprehensive Metabolic Panel (01/29/17 19:34) Prothrombin Time / Inr (Pt) (01/29/17 19:34) Urinalysis - C+S If Indicated (01/29/17 19:37) Blood Culture (01/29/17 22:24) Wound Culture And Gram Stain (01/29/17 22:24) Iv Access Insert/Monitor (01/29/17 22:24) Ecg Monitoring (01/29/17 22:24) Oximetry (01/29/17 22:24) Ammonia (01/29/17 22:28) Lactic Acid (01/29/17 23:03) Urine Culture (01/29/17 23:00) Sodium Chlorid 0.9% 500 Ml Inj (Ns 500 M (01/30/17 00:30) Piperacil-Tazo 3.375 Gm Premix (Zosyn 3. (01/30/17 00:30) Vancomycin Inj (Vancomycin Inj) (01/30/17 00:30) Admit Order (Ed Use Only) (01/30/17 00:34) D/C Picc Line (01/30/17 00:34) Catheter Tip Culture (01/30/17 00:34) Labs Laboratory Tests Test 01/29/17 19:45 01/29/17 22:55 01/29/17 23:00 White Blood Count 7.1 TH/MM3 Red Blood Count 3.57 MIL/MM3 Hemoglobin 9.4 GM/DL Hematocrit 29.2 % Mean Corpuscular Volume 81.6 FL Mean Corpuscular Hemoglobin 26.3 PG Mean Corpuscular Hemoglobin Concent 32.3 % Red Cell Distribution Width 17.2 % Platelet Count 439 TH/MM3 Mean Platelet Volume 7.5 FL Neutrophils (%) (Auto) 38.1 % Lymphocytes (%) (Auto) 35.6 % Monocytes (%) (Auto) 10.9 % Eosinophils (%) (Auto) 14.0 % Basophils (%) (Auto) 1.4 % Neutrophils # (Auto) 2.7 TH/MM3 Lymphocytes # (Auto) 2.5 TH/MM3 Monocytes # (Auto) 0.8 TH/MM3 Eosinophils # (Auto) 1.0 TH/MM3 Basophils # (Auto) 0.1 TH/MM3 CBC Comment DIFF FINAL Differential Comment Prothrombin Time 10.7 SEC Prothromb Time International Ratio 1.0 RATIO Blood Urea Nitrogen 21 MG/DL Creatinine 1.23 MG/DL Random Glucose 118 MG/DL Total Protein 7.6 GM/DL Albumin 2.6 GM/DL Calcium Level 9.5 MG/DL Alkaline Phosphatase 511 U/L Aspartate Amino Transf (AST/SGOT) 383 U/L Alanine Aminotransferase (ALT/SGPT) 184 U/L Total Bilirubin 0.2 MG/DL Sodium Level 139 MEQ/L Potassium Level 3.8 MEQ/L Chloride Level 104 MEQ/L Carbon Dioxide Level 28.0 MEQ/L Anion Gap 7 MEQ/L Estimat Glomerular Filtration Rate 54 ML/MIN Lactic Acid Level 1.1 mmol/L Ammonia 27 MCMOL/L Urine Color YELLOW Urine Turbidity HAZY Urine pH 5.5 Urine Specific [place] 1.015 Urine Protein 30 mg/dL Urine Glucose (UA) NEG mg/dL Urine Ketones NEG mg/dL Urine Occult Blood TRACE Urine Nitrite POS Urine Bilirubin NEG Urine Urobilinogen LESS THAN 2.0 MG/DL Urine Leukocyte Esterase LARGE Urine RBC 10 /hpf Urine WBC /hpf Urine Squamous Epithelial Cells 1 /hpf Urine Bacteria FEW /hpf Urine Hyaline Casts 13 /lpf Microscopic Urinalysis Comment CATH-CULTURE IND MDM Medical Decision Making Medical Screen Exam Complete: Yes Emergency Medical Condition: Yes Medical Record Reviewed: Yes Differential Diagnosis Recurrent sepsis of undetermined origin, versus urinary tract infection, versus hepatic encephalopathy, versus other metabolic encephalopathy Narrative Course During the course of the patients emergency department visit, the patients history, examination, and differential diagnosis were reviewed with the patient. The patient had IV access obtained and blood work sent for analysis. The patient was placed on a solutions analyst with oximetry and blood pressure monitoring. The patient was initially provided normal saline a 500 mL bolus, Zosyn 3.375 g IV, vancomycin 1 g IV. The patients laboratory studies were reviewed and remarkable for white count 7.1 , hemoglobin 9.4, platelets 439 with 10.9 monocytes CMP is remarkable for a BUN of 21, creatinine 1.23, glucose 118 AST is elevated at 383, ALT 184, alkaline phosphatase 511 which is new compared to her last LFTs on December 28, 2016. Ammonia level was done and normal at 27, lactic acid 1.1. PT 10.7, INR 1.0, urinalysis shows 30 protein, trace occult blood, positive nitrite, 10 rbc's, innumerable WBCs, few bacteria, culture indicated. The patient's case was discussed with the [facility]. He did agree to admit the patient for further evaluation and treatment at this time. The patients results were discussed with the patient, including the plan of care. I explained that further testing and/ or monitoring is indicated based on the patients history, examination, and/ or laboratory findings. Therefore, I recommended admission for additional evaluation. The patient expressed understanding and was agreeable with this plan. The patient was admitted to the hospital in stable condition and sent to a bed under the care of the [facility] service. Physician Communication Physician Communication The patient's case was discussed with Dr. Banerjee who did agree to admit the patient for further evaluation and treatment at this time. Diagnosis Primary Impression: Altered mental status Qualified Codes: R41.0 - Disorientation, unspecified Additional Impressions: UTI (urinary tract infection) Qualified Codes: T83.510A - Infection and inflammatory reaction due to cystostomy catheter, initial encounter; N39.0 - Urinary tract infection, site not specified Elevated liver enzymes Admitting Information Admitting Physician Requests: Lynne Avila MD Jan 29, 2017 22:40
[2017-01-29 23:05] VITALS: BP 116/65; PULSE 90; RESP 18; O2SAT 98
[2017-01-29 23:19] LABS: BACTERIA, URINE FEW /hpf; BLOOD, URINE TRACE (NEG); COMMENT (UR) CATH-CULTURE IND; CULTURE IF INDICATED CATH CULTURE IND; GLUCOSE,URINE NEG (NEG); HYALINE CAST, URINE 13 /lpf (RARE); KETONE, URINE NEG (NEG); NITRITE,URINE POS (NEG); PH, URINE 5.5 (5.0-8.5); SQUAMOUS EPITHELIAL CELL URINE 1 /hpf (0-5); URINE COLOR YELLOW (YELLW/STRAW)
[2017-01-30] VITALS (8 sets, daily range): BP systolic 100–168; BP diastolic 58–92; PULSE 78–108; RESP 18–19; TEMP 98.1–98.8; O2SAT 97–99
[2017-01-30] MEDS ORDERED: VANCOMYCIN INJ 1,000 MG in SODIUM CHLOR 0.9% 250 ML INJ 250 ML IV ONE (00:30)
[2017-01-30] MEDS ORDERED: PIPERACIL-TAZO 3.375 GM PREMIX 50 ML IV ONE (00:30)
[2017-01-30] MEDS ORDERED: SODIUM CHLORID 0.9% 500 ML INJ 500 ML IV ONE (00:30)
[2017-01-30] MEDS ORDERED: SODIUM CHLORIDE 0.9% FLUSH 10 ML FLUSH IVF PRN (02:30)
[2017-01-30] MEDS: SODIUM CHLORIDE 0.9% FLUSH 10 ML FLUSH IV FLUSH SCH ×2 (07:53→21:32)
--- NOTE | 2017-01-30 09:14 | HHI.HP ---
HPI Service [facility] Hospitalists Primary Care Physician John Bloom Jr, MD Admission Diagnosis AMS, UTI Travel History International Travel<30 Days: No Contact w/Intl Traveler <30 Da: No Traveled to Known Affected Are: No History of Present Illness Pt is a 61 y/o F advance multiple sclerosis requiring frequent hospitalizations. Most recently pt was hospitalized at [facility] 12/28 - 01/17/17. Pt had been receiving weekly plasmapheresis on Tuesdays. Prior to last hospitalization, pt presented to the ED with complaints of productive cough for 2 - 3 weeks. Pt initially received approximately 11 days of PO levaquin without improvement. Pt was seen in ED and had sputum and blood cx on 12/24. Pt was diagnosed with bronchitis and discharged to home. - Pt was called back to ED 12/28 for positive sputum MRSA/pseudomonas and blood cx staph epi 2/ - Pt says her hands were also getting weak and MS starting to flare. She has also had missed her last 2 plasmapheresis treatments. - SPC was last changed around 12/19 per the pt. It is changed monthly per the pt. - blood Cx (12/30/16) - Staph Epi 3/4 bottles - urine cx (12/28) --> pseudomonas, enterococcus - sputum cx (12/29) --> pseudomonas - blood cx (12/30) from permcath - staph epi - PermCath removed (12/31/16) d/t infection. tip cx --> less than 15 CFU - repeat blood cx (01/01/17) --> NGTD - repeat Blood Cx (01/02/17) --> NGTD - Echocardiogram (12/31/16) --> no vegetations noted, EF 55-60% - SHADY (01/03/17) --> NO vegetation - Repeat Blood Cx (01/10) --> NGTD - Repeat Blood Cx (01/11) --> NGTD - Per ID hold off on placing new PermCath until bacteremia resolved - so no plasmapheresis at this time - In the ED pt was given Primaxin as best ALEJANDRINA on 12/28 - Vanco (12/29 - 01/02) Vanc stopped due to high levels and worsening renal function. - Zosyn and (12/29 - 01/04) - Vanco levels decreasing- Daptomycin started to complete therapy for bacteremia. - Daptomycin started on 01/07 and completed 01/28/17 Pt returned to [facility] 01/29/17 with c/o disorientation. Staff at [facility] noted staring episodes and was slow to answer when she was spoken to. Pt requested that the SNF staff send her back to the ER. Pt alert and oriented upon arrival to the ER and at the time of my interview 01/30/17. Pt requested transfer back to [facility] ER because she was concerned that episodes of disorientation might represent recurrent sepsis. Pt still has PICC line in place upon arrival to the ER. This was removed and tip cultured Pt has a suprapubic catheter in place and report that there was some purulence and bloody drainage when it was clearned 01/29. Pt reports that she had exchange of her suprapubic catheter in Dr. Ramires's office 01/23/17 Pt admitted to [facility] for further evaluation and treatment. Review of Systems Constitutional: DENIES: Fatigue, Fever, Weight gain, Weight loss, Chills, Dizziness, Change in appetite, Night Sweats Endocrine: DENIES: Heat/cold intolerance, Polydipsia, Polyuria, Polyphagia Eyes: DENIES: Blurred vision, Diplopia, Eye inflammation, Eye pain, Vision loss , Photosensitivity, Double Vision Ears, nose, mouth, throat: DENIES: Tinnitus, Hearing loss, Vertigo, Nasal discharge, Oral lesions, Throat pain, Hoarseness, Ear Pain, Running Nose, Epistaxis, Sinus Pain, Toothache, Odynophagia Respiratory: DENIES: Apneas, Cough, Snoring, Wheezing, Hemoptysis, Sputum production, Shortness of breath Cardiovascular: DENIES: Chest pain, Palpitations Gastrointestinal: DENIES: Abdominal pain, Black stools, Bloody stools, BRB per rectum, Constipation, Diarrhea, GERD, Nausea, Reflux, Vomiting, Difficulty Swallowing, Anorexia Genitourinary: DENIES: Urinary frequency, Urinary incontinence, Urgency, Hematuria, Dysuria, Nocturia, Vaginal discharge Musculoskeletal: DENIES: Joint pain, Muscle aches, Stiffness, Joint Swelling, Back pain, Neck pain Integumentary: DENIES: Abnormal pigmentation, Pruritus, Rash, Nail changes, Breast masses, Breast skin changes, Nipple discharge Hematologic/lymphatic: DENIES: Bruising, Lymphadenopathy Immunologic/allergic: DENIES: Eczema, Urticaria Neurologic: DENIES: Abnormal gait, Headache, Localized weakness, Paresthesias, Seizures, Speech Problems, Tremor, Poor Balance Psychiatric: DENIES: Anxiety, Confusion, Mood changes, Depression, Hallucinations, Agitation, Suicidal Ideation, Homicidal Ideation, Delusions, History of Bipolar, History of Schizophrenia Past Family Social History Past Medical History Multiple sclerosis diagnosed in late 2012 requiring plasmapheresis weekly Fibromyalgia Bipolar disorder History of obesity Hypertension Lupus Fibromyalgia Gastroparesis Recurrent UTIs chronic indwelling suprapubic cath. changed monthly Past Surgical History chronic indwelling suprapubic cath. changed monthly 2004 the patient had C3 through C6 anterior cervical discectomy and arthrodesis for severe cervical stenosis and myelopathy 2008 the patient had again the same diagnosis but had C6-C7 anterior cervical discectomy and arthrodesis 2010 the patient had open reduction, internal fixation of a right ankle fracture Right distal fibula fracture Torn lateral meniscus last year and underwent arthroscopic surgery Laparoscopic cholecystectomy Hysterectomy Suprapubic catheter placement PermCath placement and subsequent removal x 2 Reported Medications Reported Meds & Active Scripts Active Remeron (Mirtazapine) 30 Mg Tab 30 Mg PO HS Dilaudid (Hydromorphone HCl) 4 Mg Tab 4 Mg PO Q8H PRN Ipratropium Neb (Ipratropium [place]) 0.5 Mg/2.5 Ml Amp 0.5 Mg NEB Q4HR NEB Neurontin (Gabapentin) 300 Mg Cap 300 Mg PO DAILY@1300 Neurontin (Gabapentin) 300 Mg Cap 600 Mg PO BID Reported Robitussin Cough Chest Congestion (Dextromethorphan-Guaifenesin) 10-200 Mg Cap 10 Ml PO Q6HR PRN Lisinopril 20 Mg Tab 20 Mg PO Q12HR Florastor (Saccharomyces Boulardii) 250 Mg Cap 250 Mg PO BID 14 Days Furosemide 40 Mg Tab 40 Mg PO DAILY Rebif Rebidose Pen Inj (Interferon Beta 1a) 44 Mcg/0.5 Ml Pen 44 Mcg SQ MOWEFR Inject 44mcg sq three times a week on Friday,Friday and Friday Hiprex (Methenamine Hippurate) 1 Gm Tab 1 Gm PO BID Cranberry Urinary Comfort (Vitamins C & E) 1 Cap 1 Cap PO DAILY Nifedipine 10 Mg Cap 30 Mg PO HS Protonix (Pantoprazole Sodium) 20 Mg Tab 20 Mg PO DAILY Procardia XL (Nifedipine) 60 Mg Tab 60 Mg PO DAILY Plaquenil (Hydroxychloroquine Sulfate) 200 Mg Tab 200 Mg PO BID Take with food Potassium Chloride ER (Potassium Chloride) 20 Meq Tab 20 Meq PO DAILY Catapres (Clonidine) 0.2 Mg Tab 0.2 Mg PO TID Aspirin 325 Mg Tab 325 Mg PO DAILY D 66417 (Cholecalciferol) 10,000 Unit Cap 10,000 Units PO DAILY Vitamin B Complex (B-Complex Vitamins) 1 Tab 1 Tab PO DAILY Allergies: Coded Allergies: adhesive (Unverified Allergy, Severe, Rash, 01/29/17) albuterol (Unverified Allergy, Severe, SORES, 01/29/17) codeine (Unverified Allergy, Severe, SWELLING AND DIFFICULTY BREATHING, ) hydrocodone (Unverified Allergy, Severe, RASH AND SWELLING, 01/29/17) isradipine (Unverified Allergy, Severe, ELEVATED HEART RATE, 01/29/17) methylprednisolone (Unverified Allergy, Severe, Shortness of Breath, ) oxycodone (Unverified Allergy, Severe, ITCHING, 01/29/17) Family History Non-contributory Social History Lives with her and has been for over 25 years. They have been together for over 30 years. She has 2 adult children one son who lives in [place] and a daughter who lives in [place] Never smoked tobacco. Does not drink alcohol. Denies illicit drugs. 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 Physical Exam Vital Signs Vital Signs Date Time Temp Pulse Resp B/P (MAP) Pulse Ox O2 Delivery O2 Flow Rate FiO2 01/30/17 08:12 98.8 108 18 140/77 (98) 97 01/30/17 04:10 01/30/17 04:09 98.2 99 19 140/83 (102) 97 01/30/17 02:50 95 18 135/72 (93) 97 Room Air 01/30/17 02:34 98 21 01/29/17 23:05 90 18 116/65 (82) 98 Room Air 01/29/17 19:15 84 18 121/68 (85) 97 Room Air 01/29/17 18:45 98.9 88 20 117/68 (84) 95 Physical Exam GENERAL: This is a well-nourished, well-developed patient, in no apparent distress. SKIN: No rashes, ecchymoses or lesions. Cool and dry. HEAD: Atraumatic. Normocephalic. No temporal or scalp tenderness. EYES: Pupils equal round and reactive. Extraocular motions intact. No scleral icterus. No injection or drainage. ENT: Nose without bleeding, purulent drainage or septal hematoma. Throat without erythema, tonsillar hypertrophy or exudate. Uvula midline. Airway patent. NECK: Trachea midline. No JVD or lymphadenopathy. Supple, nontender, no meningeal signs. CARDIOVASCULAR: Regular rate and rhythm without murmurs, gallops, or rubs. RESPIRATORY: Clear to auscultation. Breath sounds equal bilaterally. No wheezes , rales, or rhonchi. GASTROINTESTINAL: Abdomen soft, non-tender, nondistended. No hepato-splenomegaly , or palpable masses. No guarding. MUSCULOSKELETAL: Extremities without clubbing, cyanosis, or edema. No joint tenderness, effusion, or edema noted. No calf tenderness. Negative Homans sign bilaterally. NEUROLOGICAL: Awake and alert. Cranial nerves II through XII intact. Motor and sensory grossly within normal limits. Five out of 5 muscle strength in all muscle groups. Normal speech. Laboratory Laboratory Tests Test 01/29/17 19:45 01/29/17 22:55 01/29/17 23:00 White Blood Count 7.1 Red Blood Count 3.57 Hemoglobin 9.4 Hematocrit 29.2 Mean Corpuscular Volume 81.6 Mean Corpuscular Hemoglobin 26.3 Mean Corpuscular Hemoglobin Concent 32.3 Red Cell Distribution Width 17.2 Platelet Count 439 Mean Platelet Volume 7.5 Neutrophils (%) (Auto) 38.1 Lymphocytes (%) (Auto) 35.6 Monocytes (%) (Auto) 10.9 Eosinophils (%) (Auto) 14.0 Basophils (%) (Auto) 1.4 Neutrophils # (Auto) 2.7 Lymphocytes # (Auto) 2.5 Monocytes # (Auto) 0.8 Eosinophils # (Auto) 1.0 Basophils # (Auto) 0.1 CBC Comment DIFF FINAL Differential Comment Prothrombin Time 10.7 Prothromb Time International Ratio 1.0 Blood Urea Nitrogen 21 Creatinine 1.23 Random Glucose 118 Total Protein 7.6 Albumin 2.6 Calcium Level 9.5 Alkaline Phosphatase 511 Aspartate Amino Transf (AST/SGOT) 383 Alanine Aminotransferase (ALT/SGPT) 184 Total Bilirubin 0.2 Sodium Level 139 Potassium Level 3.8 Chloride Level 104 Carbon Dioxide Level 28.0 Anion Gap 7 Estimat Glomerular Filtration Rate 54 Lactic Acid Level 1.1 Ammonia 27 Urine Color YELLOW Urine Turbidity HAZY Urine pH 5.5 Urine Specific Petal 1.015 Urine Protein 30 Urine Glucose (UA) NEG Urine Ketones NEG Urine Occult Blood TRACE Urine Nitrite POS Urine Bilirubin NEG Urine Urobilinogen LESS THAN 2.0 Urine Leukocyte Esterase LARGE Urine RBC 10 Urine WBC Urine Squamous Epithelial Cells 1 Urine Bacteria FEW Urine Hyaline Casts 13 Microscopic Urinalysis Comment CATH-CULTURE IND Date/Time Source Procedure Growth Status 01/29/17 22:50 Blood Peripheral Aerobic Blood Culture Pending Received 01/29/17 22:50 Blood Peripheral Anaerobic Blood Culture Pending Received 01/29/17 23:00 Urine Suprapubic Urine Urine Culture Pending Received 01/30/17 01:55 Catheter Tip Other Wound Culture Pending Received Result Diagram: 01/29/17194401/29/171944 Septic Shock Reassessment Heart: Regular rate and rhythm Lungs: Clear Skin: Warm Peripheral Pulses: Bounding Right Radial Bounding Left Radial Bounding Right Popliteal Bounding Left Popliteal Bounding Right Dorsalis Pedis Bounding Left Dorsalis Pedis Bounding Right Posterior Tibial Bounding Left Posterior Tibial Caprini VTE Risk Assessment Caprini VTE Risk Assessment: Mod/High Risk (score >= 2) Caprini Risk Assessment Model Point Value = 1 Point Value = 2 Point Value = 3 Point Value = 5 Age 41-60 Minor surgery BMI > 25 kg/m2 Swollen legs Varicose veins or History of unexplained or recurrent spontaneous Oral contraceptives or hormone replacement Sepsis (< 1 month) Serious lung disease, including pneumonia (< 1 month) Abnormal pulmonary function Acute myocardial infarction Congestive heart failure (< 1 month) History of inflammatory bowel disease Medical patient at bed rest Age 61-74 Arthroscopic surgery Major open surgery (> 45 min) Laparoscopic surgery (> 45 min) Malignancy Confined to bed (> 72 hours) Immobilizing plaster cast Central venous access Age >= 75 History of VTE Family history of VTE Factor V Leiden Prothrombin [id number] Lupus anticoagulant Anticardiolipin antibodies Elevated serum homocysteine Heparin-induced thrombocytopenia Other congenital or acquired thrombophilia Stroke (< 1 month) Elective arthroplasty Hip, pelvis, or leg fracture Acute spinal cord injury (< 1 month) Prophylaxis Regimen Total Risk Factor Score Risk Level Prophylaxis Regimen 0-1 Low Early ambulation 2 Moderate Order ONE of the following: *Sequential Compression Device (SCD) *Heparin 5000 units SQ BID 3-4 Higher Order ONE of the following medications: *Heparin 5000 units SQ TID *Enoxaparin/Lovenox 40 mg SQ daily (WT < 150 kg, CrCl > 30 mL/min) *Enoxaparin/Lovenox 30 mg SQ daily (WT < 150 kg, CrCl > 10-29 mL/min) *Enoxaparin/Lovenox 30 mg SQ BID (WT < 150 kg, CrCl > 30 mL/min) AND/OR *Sequential Compression Device (SCD) 5 or more Highest Order ONE of the following medications: *Heparin 5000 units SQ TID (Preferred with Epidurals) *Enoxaparin/Lovenox 40 mg SQ daily (WT < 150 kg, CrCl > 30 mL/min) *Enoxaparin/Lovenox 30 mg SQ daily (WT < 150 kg, CrCl > 10-29 mL/min) *Enoxaparin/Lovenox 30 mg SQ BID (WT < 150 kg, CrCl > 30 mL/min) AND *Sequential Compression Device (SCD) Assessment and Plan Problem List: (1) UTI (urinary tract infection) ICD Codes: N39.0 - Urinary tract infection Status: Acute Plan: - pt has suprapubic catheter, exchanged monthly - last exchange at Dr. Ramires's office was performed 01/23/17 - pt reports purulence from catheter yesterday - abnormal UA - await results of urine culture - urine cx (12/28) --> pseudomonas, enterococcus - continue Hiprex - Pt received vancomycin and zosyn in the ER (01/30) - recent hospitalization d/t sepsis, see HPI - Await ID consultation. Dr. Wynn notified. (2) H/O sepsis ICD Codes: Z86.19 - Personal history of other infectious and parasitic diseases Plan: - pt c/o episodes of staring spells at [facility] - pt concerned that these episodes might represent recurrent sepsis - Pt completed course of antibiotics 01/28/17, see HPI - follow cultures - Await ID consult (3) Multiple sclerosis ICD Codes: G35 - Multiple sclerosis Status: Chronic Plan: - Pt follows with Dr. Suggs, Neurology - Pt had been receiving plasmapheresis with Dr. Trevino - PermCath removed d/t infection 12/31/16 - Pt had missed 2 plasmapheresis treatments prior to PermCath removal - continue Rebif (4) HTN (hypertension), benign ICD Codes: I10 - Benign hypertension Status: Chronic Plan: - stable - continue catapress, nifedipine, lisinopril (5) Lupus (systemic lupus erythematosus) ICD Codes: M32.9 - Systemic lupus erythematosus, unspecified Status: Chronic Plan: - Plaquenil (6) Fibromyalgia ICD Codes: M79.7 - Fibromyalgia Status: Chronic Plan: - multiple narcotic allergies - PO dilaudid prn - Neurontin (7) Elevated transaminase level ICD Codes: R74.0 - Nonspecific elevation of levels of transaminase and lactic acid dehydrogenase [LDH] Plan: - repeat LFTs in AM Physician Certification 2 Midnight Certification Type: Admission for Inpatient Services Order for Inpatient Services The services are ordered in accordance with Medicare regulations or non- Medicare payer requirements, as applicable. In the case of services not specified as inpatient-only, they are appropriately provided as inpatient services in accordance with the 2-midnight benchmark. Estimated LOS (days): 3 3 days is the estimated time the patient will need to remain in the hospital, assuming treatment plan goals are met and no additional complications. Post-Hospital Plan: Not yet determined Problem Qualifiers (1) UTI (urinary tract infection): Qualified Codes: T83.510A - Infection and inflammatory reaction due to cystostomy catheter, initial encounter; N39.0 - Urinary tract infection, site not specified Jan Stevens DO Jan 30, 2017 09:14
[2017-01-30] MEDS ORDERED: METHENAMINE HIPPURATE 1 GM PO SCH ×2 (10:00→21:00)
[2017-01-30] MEDS ORDERED: HYDROmorphone HCL 4 MG TAB PO PRN (12:00)
[2017-01-30] MEDS: RESP: IPRATROPIUM 0.5 MG/2.5 ML NEB NEB SCH ×2 (12:00→12:30)
[2017-01-30] MEDS: POTASSIUM CHLORIDE 20 MEQ CONTROLLED RELEASE TAB PO SCH (12:40)
[2017-01-30] MEDS: PANTOPRAZOLE SOD 20 MG DELAYED RELEASE TAB PO SCH (12:41)
[2017-01-30] MEDS: GABAPENTIN 300 MG CAP PO SCH ×2 (12:41→21:32)
[2017-01-30] MEDS: HYDROXYCHLOROQUINE SULFATE 200 MG TAB PO SCH ×2 (12:41→21:31)
[2017-01-30] MEDS: LISINOPRIL 20 MG TAB PO SCH ×2 (12:42→21:31)
[2017-01-30] MEDS: ASPIRIN 325 MG TAB PO SCH (12:42)
[2017-01-30] MEDS: FUROSEMIDE 40 MG TAB PO SCH (12:42)
[2017-01-30] MEDS: NIFEdipine 60 MG SUSTAINED RELEASE TAB PO SCH (12:42)
[2017-01-30 12:48] LABS: ANION GAP 8 MEQ/L (5-15); AST (GOT) 287 U/L (15-37); BICARBONATE 27.4 MEQ/L (21.0-32.0); BLOOD UREA NITROGEN 18 MG/DL (7-18); CHLORIDE 104 MEQ/L (98-107); GLOMERULAR FILTRATION RATE 58 ML/MIN (>89); POTASSIUM 3.7 MEQ/L (3.5-5.1); SODIUM (NA) 139 MEQ/L (136-145)
[2017-01-30 12:49] LABS: ALT (GPT) 163 U/L (10-53)
[2017-01-30 12:51] LABS: ALKALINE PHOSPHATASE 450 U/L (45-117); TOTAL BILIRUBIN ADULT 0.3 MG/DL (0.2-1.0)
[2017-01-30] MEDS: cloNIDine HCL 0.2 MG TAB PO SCH ×2 (14:32→17:55)
--- NOTE | 2017-01-30 15:23 | PD.CONS ---
History of Present Illness Service Infectious disease Consult Requested By Dr. Stevens Reason for Consult Evaluate patient with UTI, recent sepsis Primary Care Physician John Bloom Jr, MD Diagnoses: History of Present Illness Patient seen and examined. Records reviewed. Patient is a 61-year-old female, recently hospitalized December 28 to January 17 , and at that time she was diagnosed to have several infections. She had staph epi line related sepsis, and her permacath was removed. She had a permacath that was being used for plasmapheresis treatment for her multiple sclerosis. Patient also was treated for MRSA and Pseudomonas pneumonia, and also had UTI, culture grew enterococcus and Pseudomonas. She completed treatment for the pneumonia and the UTI, and her chest x-ray showed improvement in the infiltrates , and repeat urine culture was negative. She was discharged to the care home on IV Cubicin which she completed January 27, as treatment for her prolonged staph epi bacteremia. She was initially on vancomycin, but developed renal failure, and renal evaluation felt that it might be due to ATN, interstitial nephritis possibly related to vancomycin. In the care home she apparently was noted to be disoriented. She was brought to the hospital for further evaluation, for possible recurrent sepsis. Patient has a suprapubic catheter which according to her was change in January 23 in the urologist office. On presentation patient has been afebrile. Her mental status has improved. Her urinalysis did show pyuria and bacteriuria, and culture is growing gram-negative ubaldo. There was also some drainage around her suprapubic catheter, and this was sent for culture. Her blood cultures are negative so far. Her WBC is normal. She denies any respiratory complaint. She is not short of breath. She has not had any nausea, vomiting, or diarrhea. She has no abdominal pain, chest pain. Infectious disease consultation has been requested to evaluate patient with UTI , and a recent episode of sepsis. Review of Systems Constitutional: DENIES: Fever, Chills, Night Sweats Eyes: DENIES: Eye pain Ears, nose, mouth, throat: DENIES: Nasal discharge, Oral lesions, Throat pain, Ear Pain, Running Nose, Odynophagia Respiratory: DENIES: Cough, Sputum production, Shortness of breath Cardiovascular: DENIES: Chest pain, Palpitations Gastrointestinal: DENIES: Abdominal pain, Diarrhea, Nausea, Vomiting, Difficulty Swallowing Integumentary: DENIES: Pruritus, Rash Neurologic: DENIES: Headache Psychiatric: DENIES: Hallucinations Past Family Social History Allergies: Coded Allergies: adhesive (Unverified Allergy, Severe, Rash, 01/29/17) albuterol (Unverified Allergy, Severe, SORES, 01/29/17) codeine (Unverified Allergy, Severe, SWELLING AND DIFFICULTY BREATHING, ) hydrocodone (Unverified Allergy, Severe, RASH AND SWELLING, 01/29/17) isradipine (Unverified Allergy, Severe, ELEVATED HEART RATE, 01/29/17) methylprednisolone (Unverified Allergy, Severe, Shortness of Breath, ) oxycodone (Unverified Allergy, Severe, ITCHING, 01/29/17) Past Medical History Multiple sclerosis diagnosed in late 2012 requiring plasmapheresis weekly Fibromyalgia Bipolar disorder History of obesity Hypertension Lupus Fibromyalgia Gastroparesis Recurrent UTIs Chronic indwelling suprapubic cath. changed monthly Past Surgical History 2004 the patient had C3 through C6 anterior cervical discectomy and arthrodesis for severe cervical stenosis and myelopathy 2008 the patient had again the same diagnosis but had C6-C7 anterior cervical discectomy and arthrodesis 2010 the patient had open reduction, internal fixation of a right ankle fracture Right distal fibula fracture Torn lateral meniscus last year and underwent arthroscopic surgery Laparoscopic cholecystectomy Hysterectomy Suprapubic catheter placement PermCath placement and subsequent removal x 2 Reported Medications Reported Meds & Active Scripts Active Remeron (Mirtazapine) 30 Mg Tab 30 Mg PO HS Dilaudid (Hydromorphone HCl) 4 Mg Tab 4 Mg PO Q8H PRN Ipratropium Neb (Ipratropium Squire) 0.5 Mg/2.5 Ml Amp 0.5 Mg NEB Q4HR NEB Neurontin (Gabapentin) 300 Mg Cap 300 Mg PO DAILY@1300 Neurontin (Gabapentin) 300 Mg Cap 600 Mg PO BID Reported Robitussin Cough Chest Congestion (Dextromethorphan-Guaifenesin) 10-200 Mg Cap 10 Ml PO Q6HR PRN Lisinopril 20 Mg Tab 20 Mg PO Q12HR Florastor (Saccharomyces Boulardii) 250 Mg Cap 250 Mg PO BID 14 Days Furosemide 40 Mg Tab 40 Mg PO DAILY Rebif Rebidose Pen Inj (Interferon Beta 1a) 44 Mcg/0.5 Ml Pen 44 Mcg SQ MOWEFR Inject 44mcg sq three times a week on Friday,Friday and Friday Hiprex (Methenamine Hippurate) 1 Gm Tab 1 Gm PO BID Cranberry Urinary Comfort (Vitamins C & E) 1 Cap 1 Cap PO DAILY Nifedipine 10 Mg Cap 30 Mg PO HS Protonix (Pantoprazole Sodium) 20 Mg Tab 20 Mg PO DAILY Procardia XL (Nifedipine) 60 Mg Tab 60 Mg PO DAILY Plaquenil (Hydroxychloroquine Sulfate) 200 Mg Tab 200 Mg PO BID Take with food Potassium Chloride ER (Potassium Chloride) 20 Meq Tab 20 Meq PO DAILY Catapres (Clonidine) 0.2 Mg Tab 0.2 Mg PO TID Aspirin 325 Mg Tab 325 Mg PO DAILY D 23015 (Cholecalciferol) 10,000 Unit Cap 10,000 Units PO DAILY Vitamin B Complex (B-Complex Vitamins) 1 Tab 1 Tab PO DAILY Active Ordered Medications Aspirin Clonidine Lasix Neurontin Dilaudid Plaquenil Atrovent inh Lisinopril Remeron procardia Protonix Potassium Vancomycin x 1 dose Zosyn x 1 dose Family History Non-contributory to current ID problem Social History Lives with her and has been for over 25 years. They have been together for over 30 years. Since last admission, she has been in the care home She has 2 adult children one son who lives in [place] and a daughter who lives in [place] Never smoked tobacco. Does not drink alcohol. Denies illicit drugs. 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 Physical Exam Vital Signs Vital Signs Date Time Temp Pulse Resp B/P (MAP) Pulse Ox O2 Delivery O2 Flow Rate FiO2 01/30/17 14:33 18 01/30/17 14:27 168/92 (117) 01/30/17 08:12 98.8 108 18 140/77 (98) 97 01/30/17 04:10 01/30/17 04:09 98.2 99 19 140/83 (102) 97 01/30/17 02:50 95 18 135/72 (93) 97 Room Air 01/30/17 02:34 98 21 01/29/17 23:05 90 18 116/65 (82) 98 Room Air 01/29/17 19:15 84 18 121/68 (85) 97 Room Air 01/29/17 18:45 98.9 88 20 117/68 (84 95 Physical Exam GENERAL: Patient is a well-nourished, well-developed female, awake and alert , not in respiratory distress. SKIN: Warm and dry. No generalized rash, no ecchymoses and no evidence of embolic lesions. HEAD: Atraumatic. Normocephalic. No temporal wasting, or tenderness. EYES: [place] conjunctiva. No petechia or hemorrhage. Pupils equal, round and reactive to light. Extraocular movements full and intact. No scleral icterus. No injection or drainage. EARS, NOSE AND THROAT: Nose without bleeding or purulent nasal discharge. No sinus tenderness. Mucous membranes pink and moist. No oral lesions noted. No exudate. No oral thrush. NECK: Trachea midline. Supple and not tender, no meningeal signs. CARDIOVASCULAR: Regular rate and rhythm. No murmurs, rubs or gallops heard RESPIRATORY: Clear to auscultation. Breath sounds equal bilaterally. No rales , wheezing or rhonchi. Decreased BS at the bases. ABDOMEN: Soft, non-tender, nondistended. Bowel sounds present and normoactive. No guarding. No rebound. No organomegaly. : SPC in place, site ok, urine looks ok EXTREMITIES: No clubbing, cyanosis, or edema. No joint effusion. No calf tenderness. Well perfused and warm. NEUROLOGICAL: Awake and alert. Cranial nerves grossly intact. weakness in her BLE. PSYCHIATRIC: Normal affect, calm and cooperative. LINE: PIV ok. Laboratory Laboratory Tests Test 01/29/17 19:45 01/29/17 22:55 01/29/17 23:00 01/30/17 11:15 White Blood Count 7.1 Red Blood Count 3.57 Hemoglobin 9.4 Hematocrit 29.2 Mean Corpuscular Volume 81.6 Mean Corpuscular Hemoglobin 26.3 Mean Corpuscular Hemoglobin Concent 32.3 Red Cell Distribution Width 17.2 Platelet Count 439 Mean Platelet Volume 7.5 Neutrophils (%) (Auto) 38.1 Lymphocytes (%) (Auto) 35.6 Monocytes (%) (Auto) 10.9 Eosinophils (%) (Auto) 14.0 Basophils (%) (Auto) 1.4 Neutrophils # (Auto) 2.7 Lymphocytes # (Auto) 2.5 Monocytes # (Auto) 0.8 Eosinophils # (Auto) 1.0 Basophils # (Auto) 0.1 CBC Comment DIFF FINAL Differential Comment Prothrombin Time 10.7 Prothromb Time International Ratio 1.0 Blood Urea Nitrogen 21 18 Creatinine 1.23 1.16 Random Glucose 118 130 Total Protein 7.6 7.9 Albumin 2.6 2.8 Calcium Level 9.5 9.8 Alkaline Phosphatase 511 450 Aspartate Amino Transf (AST/SGOT) 383 287 Alanine Aminotransferase (ALT/SGPT) 184 163 Total Bilirubin 0.2 0.3 Sodium Level 139 139 Potassium Level 3.8 3.7 Chloride Level 104 104 Carbon Dioxide Level 28.0 27.4 Anion Gap 7 8 Estimat Glomerular Filtration Rate 54 58 Lactic Acid Level 1.1 Ammonia 27 Urine Color YELLOW Urine Turbidity HAZY Urine pH 5.5 Urine Specific [place] 1.015 Urine Protein 30 Urine Glucose (UA) NEG Urine Ketones NEG Urine Occult Blood TRACE Urine Nitrite POS Urine Bilirubin NEG Urine Urobilinogen LESS THAN 2.0 Urine Leukocyte Esterase LARGE Urine RBC 10 Urine WBC Urine Squamous Epithelial Cells 1 Urine Bacteria FEW Urine Hyaline Casts 13 Microscopic Urinalysis Comment CATH-CULTURE IND Date/Time Source Procedure Growth Status 01/29/17 22:50 Blood Peripheral Aerobic Blood Culture - Preliminary NO GROWTH IN 1 DAY Resulted 01/29/17 22:50 Blood Peripheral Anaerobic Blood Culture - Preliminary NO GROWTH IN 1 DAY Resulted 01/29/17 23:00 Urine Suprapubic Urine Urine Culture - Preliminary Gram Negative Ubaldo Resulted 01/30/17 01:55 Catheter Tip Other Wound Culture Pending Received Result Diagram: 01/29/17 1945 01/30/17 1115 Assessment and Plan Assessment and Plan IMPRESSION UTI, has SPC in place, changed 01/23 S/P Rx high grade Staph epi bacteremia S/P Rx MRSA and PSAE PNA, no pulmonary symptoms currently Episode of UTI during last admission Known MS RECOMMENDATION Continue IV Zosyn Follow C/S and adjust Abx If BC negative, hopefully, we can find an anaid Abx to Rx her UTI and plan 14 days Monitor progress I will follow along with you Thank you for this consultation Discussed Condition With Explained plan to the patient Mili Wynn MD Jan 30, 2017 15:23
[2017-01-30] MEDS ORDERED: ONDANSETRON HCL 4 MG/2 ML VIAL IV PUSH PRN (17:15)
[2017-01-30] MEDS ORDERED: RESP: IPRATROPIUM 0.5 MG/2.5 ML NEB NEB PRN (17:15)
[2017-01-30] MEDS ORDERED: NIFEdipine 10 MG CAP PO SCH (21:00)
[2017-01-30] MEDS ORDERED: MIRTAZAPINE ODT 30 MG TAB PO SCH (21:00)
[2017-01-30] MEDS: PIPERACIL-TAZO 4.5 GM PREMIX 100 ML IV SCH (21:32)
[2017-01-31 00:36] VITALS: BP 111/62; PULSE 82; RESP 18; TEMP 97.8; O2SAT 97
[2017-01-31] MEDS: PIPERACIL-TAZO 4.5 GM PREMIX 100 ML IV SCH ×3 (03:00→09:34)
[2017-01-31 04:38] VITALS: BP 127/57; PULSE 85; RESP 18; TEMP 98; O2SAT 100
[2017-01-31 08:30] VITALS: BP 117/64; PULSE 76; RESP 18; TEMP 98; O2SAT 100
[2017-01-31] MEDS: SODIUM CHLORIDE 0.9% FLUSH 10 ML FLUSH IV FLUSH SCH (09:00)
[2017-01-31] MEDS: cloNIDine HCL 0.2 MG TAB PO SCH ×2 (09:00→12:50)
[2017-01-31] MEDS: NIFEdipine 60 MG SUSTAINED RELEASE TAB PO SCH (09:00)
[2017-01-31] MEDS: PANTOPRAZOLE SOD 20 MG DELAYED RELEASE TAB PO SCH (09:00)
[2017-01-31] MEDS: POTASSIUM CHLORIDE 20 MEQ CONTROLLED RELEASE TAB PO SCH (09:31)
[2017-01-31] MEDS: GABAPENTIN 300 MG CAP PO SCH ×2 (09:31→12:51)
[2017-01-31] MEDS: ASPIRIN 325 MG TAB PO SCH (09:32)
[2017-01-31] MEDS: HYDROXYCHLOROQUINE SULFATE 200 MG TAB PO SCH (09:33)
[2017-01-31] MEDS: LISINOPRIL 20 MG TAB PO SCH (09:33)
[2017-01-31] MEDS: FUROSEMIDE 40 MG TAB PO SCH (09:33)
[2017-01-31] MEDS ORDERED: INTERFERON BETA 44 MCG SQ SCH (10:00)
[2017-01-31] MEDS ORDERED: [UNRECOGNIZED DRUG - OTHER] SQ SCH (10:00)
--- NOTE | 2017-01-31 10:24 | HHI.PR ---
Subjective Remarks Pt feeling well today. No new complaints. Objective Vitals Vital Signs Date Time Temp Pulse Resp B/P (MAP) Pulse Ox O2 Delivery O2 Flow Rate FiO2 01/31/17 08:30 98.0 76 18 117/64 (81) 100 01/31/17 04:38 98.0 85 18 127/57 (80) 100 01/31/17 00:36 97.8 82 18 111/62 (78) 97 01/30/17 21:51 98.1 78 19 100/58 (72) 99 01/30/17 17:55 135/75 (95) 01/30/17 16:17 98.4 102 18 148/87 (107) 97 01/30/17 14:33 18 01/30/17 14:27 168/92 (117) Result Diagram: 01/29/17194401/30/17 1115 A/P Problem List: (1) UTI (urinary tract infection) ICD Codes: N39.0 - Urinary tract infection Status: Acute Plan: - comgmt with ID - pt has suprapubic catheter, exchanged monthly - last exchange at Dr. Ramires's office was performed 01/23/17 - pt reports purulence from catheter 01/29 - Urine Cx (01/30) --> Klebsiella ESBL - urine cx (12/28) --> pseudomonas, enterococcus - continue Hiprex - Pt received vancomycin and zosyn in the ER (01/30) - zosyn - case d/w Dr. Wynn, ID (01/31) - will treat with ciprofloxin 500mg PO BID x 14d - discharge to [facility] - see discharge orders (2) H/O sepsis ICD Codes: Z86.19 - Personal history of other infectious and parasitic diseases Plan: - pt c/o episodes of staring spells at [facility] - pt concerned that these episodes might represent recurrent sepsis - Pt completed course of antibiotics 01/28/17, see HPI - blood Cx (01/30) --> NGTD - urine Cx (01/30) --> Klebsiella ESBL (3) Multiple sclerosis ICD Codes: G35 - Multiple sclerosis Status: Chronic Plan: - Pt follows with Dr. Suggs, Neurology - Pt had been [facility] - Pt had missed 2 plasmapheresis treatments prior to PermCath removal - continue Rebif - Pt voiced that she is hesitant to have new PermCath and resume plasmapheresis - Case d/w Dr. Suggs by phone (01/31/17) - Pt will f/u with Dr. Suggs at his office in 3 weeks to discuss further treatment options. (4) HTN (hypertension), benign ICD Codes: I10 - Benign hypertension Status: Chronic Plan: - stable - continue catapress, nifedipine, lisinopril (5) Lupus (systemic lupus erythematosus) ICD Codes: M32.9 - Systemic lupus erythematosus, unspecified Status: Chronic Plan: - Plaquenil (6) Fibromyalgia ICD Codes: M79.7 - Fibromyalgia Status: Chronic Plan: - multiple narcotic allergies - PO dilaudid prn - Neurontin (7) Elevated transaminase level ICD Codes: R74.0 - Nonspecific elevation of levels of transaminase and lactic acid dehydrogenase [LDH] Plan: - repeat LFTs in AM Problem Qualifiers (1) UTI (urinary tract infection): Qualified Codes: T83.510A - Infection and inflammatory reaction due to cystostomy catheter, initial encounter; N39.0 - Urinary tract infection, site not specified Jan Stevens DO Jan 31, 2017 10:24
[2017-01-31] MEDS ORDERED: CIPR-9 PO (10:30)
--- NOTE | 2017-01-31 10:38 | HHI.DCPOC ---
Discharge Care Plan Diagnosis: (1) Multiple sclerosis (2) Urinary tract infection due to ESBL Klebsiella Goals to Promote Your Health * To prevent worsening of your condition and complications * To maintain your health at the optimal level Directions to Meet Your Goals Take your medications as prescribed Follow your dietary instruction Follow activity as directed Keep your appointments as scheduled Take your immunizations and boosters as scheduled If your symptoms worsen call your PCP, if no PCP go to Urgent Care Center or Emergency Room Smoking is Dangerous to Your Health. Avoid second hand smoke Call the 24-hour hour crisis hotline for domestic abuse at Jan Stevens DO Jan 31, 2017 10:38
[2017-01-31] MEDS ORDERED: CIPROFLOXACIN 500 MG TAB PO ONE (11:00)
== END 2017-01-31 13:22 ==
LOC: NEPC 18:19 → NEDA 01-30 00:37 → INTOOBSV 01-30 00:37 → NEPFCDU 01-30 04:01
PROVIDERS: ADMIT Hospitalist; ATTEND Hospitalist
DX: T83.510A Infection and inflammatory reaction due to cystostomy catheter, initial encounter (principal); N39.0 Urinary tract infection, site not specified; B96.1 Klebsiella pneumoniae [K. pneumoniae] as the cause of diseases classified elsewhere; B95.7 Other staphylococcus as the cause of diseases classified elsewhere; I10 Essential (primary) hypertension; F31.9 Bipolar disorder, unspecified; M32.9 Systemic lupus erythematosus, unspecified; K31.84 Gastroparesis; M79.7 Fibromyalgia; G35 Multiple sclerosis; K21.9 Gastro-esophageal reflux disease without esophagitis; Z86.61 Personal history of infections of the central nervous system; Z93.59 Other cystostomy status
CPT/HCPCS: 80053; 81001; 82140; 83605; 85025; 85610; 87040; 87070; 87071; 87077; 87086; 87186; 87205; 96365; 96366; 96375; 99285; G0378; J2405; J2543; J3370; J7040; J7050; J7644

== ENCOUNTER 2017-10-23 22:16 | Inpatient (IN) ==
[2017-11-02] MEDS ORDERED: Bisacodyl 10 MG Supp RECTAL PRN (00:01)
[2017-11-02] MEDS: Aspirin 325 MG Tablet PO SCH (08:43)
[2017-11-02] MEDS: Gabapentin 300 MG Capsule PO SCH ×3 (08:43→17:45)
[2017-11-02] MEDS: Senna/Docusate Sodium 8.6/50 MG Tablet PO SCH (08:44)
[2017-11-02] MEDS: Vitamin B Complex/Vitamin C Tablet PO SCH (08:44)
[2017-11-02] MEDS: Hydroxychloroquine 200 MG Tablet PO SCH ×2 (08:45→20:20)
[2017-11-02] MEDS: Pantoprazole Sodium 20 MG DR Tablet PO SCH (08:45)
[2017-11-02] MEDS: Lisinopril 20 MG Tablet PO SCH ×2 (08:45→20:20)
[2017-11-02] MEDS: Enoxaparin Inj 40 MG/0.4 ML Syringe SQ SCH ×2 (08:46→20:20)
[2017-11-02] MEDS: [UNRECOGNIZED DRUG - OTHER] PO SCH (08:47)
[2017-11-02] MEDS: VITAMINS C PO SCH (08:47)
--- NOTE | 2017-11-02 09:40 | P.PNIM ---
Subjective Interval history: Rash on right forearm is still present and not any better than yesterday She reports that it is quite itchy Still feeling nauseated No BM in 3 days but +Flatus Physical Exam Vital signs: Vital Signs 11/02/17 02:50 11/02/17 08:00 Temperature 98.2 F 97.8 F Pulse Rate 99 H 98 H Respiratory Rate 18 18 Blood Pressure 151/86 H 148/76 H Pulse Oximetry 97 97 Intake & Output 11/01/17 11/02/17 11/02/17 18:59 06:59 18:59 Output Total 1999 Balance -1999 Weight 120 kg Output: Urine 1999 Narrative: GENERAL: This is a morbidly obese 62 year old bedbound female patient, in no apparent distress. SKIN: Red papular rash on the right forearm CARDIOVASCULAR: tachycardic, sinus RESPIRATORY: Clear to auscultation. Breath sounds equal bilaterally. GASTROINTESTINAL: Abdomen soft, non-tender, nondistended. Normal active bowel sounds GENITOURINARY: Suprapubic catheter in place MUSCULOSKELETAL: bilateral foot drop. bilateral nonpitting edema NEURO: Alert & Oriented x3 Results - Labs CBC & Chem 7: 10/29/17 06:25 10/29/17 06:25 Assessment and Plan - Assessment (1) Urinary tract infection due to ESBL Klebsiella Code(s): N39.0 - Urinary tract infection, site not specified; B96.89 - Other specified bacterial agents as the cause of diseases classified elsewhere Status: Acute Plan: - This a 62-year-old female with multiple sclerosis and suprapubic catheter. Patient has had multiple urinary tract infections and review of old microbiology patient has had pseudomonas aeruginosa, Ya albicans, Enterococcus faecalis and MRSA on prior urine cultures. Patient presented to the ED with complaints of suprapubic/lower abdominal pain x 3 days and associated nausea and vomiting 2 days worse in the morning. Patient was started on Bactrim 2 days prior to admission and reports her symptoms did not improved. - Patient did NOT appear septic at admission - Patient follows with Dr. Ramires and the last time suprapubic catheter was changed prior to admission was September 29, 2017 - Per ER documentation suprapubic catheter was changed by RN in the ER 10/23 - In emergency department urinary analysis showed large amount of leukocyte esterase 22 urine white blood cells occasional urine bacteria and few urine mucus - Patient received gentamicin IV in emergency department - Levaquin 500mg (10/24 - 10/26) - Urine Cx (10/23) --> polymicrobial infection - Blood Cx (10/23) --> Staph Epi / bottles, likely contaminant - No fever & No leukocytosis - Zofran and Phenergan PRN for nausea - UTI vs colonization. Pt has suprapubic catheter - Infectious disease consulted, patient known to Dr. Mina - Per ID: Symptomatic UTI 1. Begin imipenem for treatment of the ESBL Klebsiella and Pseudomonas. 2. Monitor response to the antibiotics. - Await repeat the urine culture on 10/29/2017 negative x 48 hours - Antibiotics stopped on 11/01 - Pt still having nausea but Phenergan does help. KUB on 11/01 indicated nonobstructive bowel gas pattern, not a lot of stool appreciated. - DVT prophylaxis with Lovenox subcu twice daily (2) Rash and nonspecific skin eruption Code(s): R21 - Rash and other nonspecific skin eruption Status: Acute Plan: - Pt developed a pruritic, maculopapular rash on her right forearm - She has significant skin sensitivities to adhesives and had several different taped placed on that arm at her IV sites - On the evening ov 10/31 and into 11/01 she developed an itchy rash on the right forearm. - The tape and IV were removed - Pt was given Benadryl po x one dose and topical Lotrisone cream ordered on - Pt initially noted some improvement but overnight it seems to be back to its original severity - Given oral Benadryl 25mg Q4H PRN (3) Multiple sclerosis Code(s): G35 - Multiple sclerosis Status: Chronic Plan: - Patient follows outpatient with Dr. Suggs has had plasmapheresis in the past last time she received plasmapheresis was 8 months ago - Continue patient's home medication regimen including Rebif of 44 mcg SQ Friday and Friday - Pt received Ducolax Sup /Mag Citrate (10/24) --> BM with symptomatic improvement - OT evaluation ordered on 10/30 but pt still has not been seen. (4) Lupus Code(s): L93.0 - Discoid lupus erythematosus Status: Chronic Plan: - Continue patient's home medication regimen including Plaquenil 200 mg p.o. twice daily (5) Fibromyalgia Code(s): M79.7 - Fibromyalgia Status: Chronic Plan: - Home meds continued (6) HTN (hypertension) Code(s): I10 - Essential (primary) hypertension Status: Chronic Plan: - Continue patient's home medication regimen including lisinopril 20 mg p.o. every 12 hours and nifedipine 60 mg p.o. twice daily - Monitor blood pressure trend - Attending Attestation Patient examined. Assessment and plan formulated with Katherin Nava PA-C. I agree with the above.
[2017-11-03] MEDS: Aspirin 325 MG Tablet PO SCH (08:56)
[2017-11-03] MEDS: Enoxaparin Inj 40 MG/0.4 ML Syringe SQ SCH ×2 (08:56→20:35)
[2017-11-03] MEDS: Vitamin B Complex/Vitamin C Tablet PO SCH (08:56)
[2017-11-03] MEDS: Gabapentin 300 MG Capsule PO SCH ×3 (08:57→17:03)
[2017-11-03] MEDS: Hydroxychloroquine 200 MG Tablet PO SCH ×2 (08:58→20:35)
[2017-11-03] MEDS: Senna/Docusate Sodium 8.6/50 MG Tablet PO SCH (08:58)
[2017-11-03] MEDS: Lisinopril 20 MG Tablet PO SCH ×2 (08:59→20:35)
[2017-11-03] MEDS: Pantoprazole Sodium 20 MG DR Tablet PO SCH (08:59)
[2017-11-03] MEDS: [UNRECOGNIZED DRUG - OTHER] PO SCH (09:06)
[2017-11-03] MEDS: VITAMINS C PO SCH (09:06)
--- NOTE | 2017-11-03 12:43 | P.PNIM ---
Physical Exam Vital signs: Vital Signs 11/02/17 16:00 11/02/17 22:33 11/03/17 00:00 Temperature 98.2 F 98.6 F 97.5 F L Pulse Rate 88 94 H 92 H Respiratory Rate 18 18 18 Blood Pressure 137/72 124/75 127/71 Pulse Oximetry 97 95 94 L 11/03/17 08:00 Temperature 98.2 F Pulse Rate 115 H Respiratory Rate 18 Blood Pressure 117/70 Pulse Oximetry 97 Intake & Output 11/02/17 11/03/17 11/03/17 18:59 06:59 18:59 Intake Total 720 / 720 Output Total 2750 / 2750 1700 / 1700 Balance -2029 / -2030 -1700 / -1700 Intake: Oral 720 / 720 Output: Urine 2750 / 2750 1700 / 1700 Other: # Bowel Movements 0 Results - Labs CBC & Chem 7: 10/29/17 06:25 10/29/17 06:25 Assessment and Plan - Assessment (1) Urinary tract infection due to ESBL Klebsiella Code(s): N39.0 - Urinary tract infection, site not specified; B96.89 - Other specified bacterial agents as the cause of diseases classified elsewhere Status: Acute Plan: - This a 62-year-old female with multiple sclerosis and suprapubic catheter. Patient has had multiple urinary tract infections and review of old microbiology patient has had pseudomonas aeruginosa, Ya albicans, Enterococcus faecalis and MRSA on prior urine cultures. Patient presented to the ED with complaints of suprapubic/lower abdominal pain x 3 days and associated nausea and vomiting 2 days worse in the morning. Patient was started on Bactrim 2 days prior to admission and reports her symptoms did not improved. - Patient did NOT appear septic at admission - Patient follows with Dr. Ramires and the last time suprapubic catheter was changed prior to admission was September 29, 2017 - Per ER documentation suprapubic catheter was changed by RN in the ER 10/23 - In emergency department urinary analysis showed large amount of leukocyte esterase 22 urine white blood cells occasional urine bacteria and few urine mucus - Patient received gentamicin IV in emergency department - Levaquin 500mg (10/24 - 10/26) - Urine Cx (10/23) --> polymicrobial infection - Blood Cx (10/23) --> Staph Epi 05/08 bottles, likely contaminant - No fever & No leukocytosis - Zofran and Phenergan PRN for nausea - UTI vs colonization. Pt has suprapubic catheter - Infectious disease consulted, patient known to Dr. Mina - Per ID: Symptomatic UTI 1. Begin imipenem for treatment of the ESBL Klebsiella and Pseudomonas. 2. Monitor response to the antibiotics. - Await repeat the urine culture on 10/29/2017 negative x 48 hours - Antibiotics stopped on 11/01 - Pt still having nausea but Phenergan does help. KUB on 11/01 indicated nonobstructive bowel gas pattern, not a lot of stool appreciated. - DVT prophylaxis with Lovenox subcu twice daily (2) Rash and nonspecific skin eruption Code(s): R21 - Rash and other nonspecific skin eruption Status: Acute Plan: - Pt developed a pruritic, maculopapular rash on her right forearm - She has significant skin sensitivities to adhesives and had several different taped placed on that arm at her IV sites - On the evening ov 10/31 and into 11/01 she developed an itchy rash on the right forearm. - The tape and IV were removed - Pt was given Benadryl po x one dose and topical Lotrisone cream ordered on - Pt initially noted some improvement but overnight it seems to be back to its original severity - Given oral Benadryl 25mg Q4H PRN - 11/03/17 - rash is improving - continue lotrisone and PO benadryl - anticipate d/c to home 11/04/17 (3) Multiple sclerosis Code(s): G35 - Multiple sclerosis Status: Chronic Plan: - Patient follows outpatient with Dr. Suggs has had plasmapheresis in the past last time she received plasmapheresis was 8 months ago - Continue patient's home medication regimen including Rebif of 44 mcg SQ Friday and Friday - Pt received Ducolax Sup /Mag Citrate (10/24) --> BM with symptomatic improvement - OT evaluation ordered on 10/30 but pt still has not been seen. (4) Lupus Code(s): L93.0 - Discoid lupus erythematosus Status: Chronic Plan: - Continue patient's home medication regimen including Plaquenil 200 mg p.o. twice daily (5) Fibromyalgia Code(s): M79.7 - Fibromyalgia Status: Chronic Plan: - Home meds continued (6) HTN (hypertension) Code(s): I10 - Essential (primary) hypertension Status: Chronic Plan: - Continue patient's home medication regimen including lisinopril 20 mg p.o. every 12 hours and nifedipine 60 mg p.o. twice daily - Monitor blood pressure trend
[2017-11-03] MEDS: INTERFERON BETA 44 MCG SQ SCH (20:37)
[2017-11-04] MEDS: Enoxaparin Inj 40 MG/0.4 ML Syringe SQ SCH ×2 (08:35→20:03)
[2017-11-04] MEDS: Senna/Docusate Sodium 8.6/50 MG Tablet PO SCH (08:36)
[2017-11-04] MEDS: Vitamin B Complex/Vitamin C Tablet PO SCH (08:36)
[2017-11-04] MEDS: Aspirin 325 MG Tablet PO SCH (08:37)
[2017-11-04] MEDS: Pantoprazole Sodium 20 MG DR Tablet PO SCH (08:37)
[2017-11-04] MEDS: Gabapentin 300 MG Capsule PO SCH ×3 (08:37→17:22)
[2017-11-04] MEDS: Hydroxychloroquine 200 MG Tablet PO SCH ×2 (08:38→20:03)
[2017-11-04] MEDS: Lisinopril 20 MG Tablet PO SCH ×2 (08:38→20:03)
[2017-11-04] MEDS: VITAMINS C PO SCH (08:39)
[2017-11-04] MEDS: [UNRECOGNIZED DRUG - OTHER] PO SCH (08:39)
--- NOTE | 2017-11-04 11:05 | P.PNIM ---
Subjective Interval history: Pts rash on the right UE is improved She has not had a BM since 10/30 +Flatus Still with some nausea Physical Exam Vital signs: Vital Signs 11/03/17 12:00 11/03/17 16:00 11/03/17 20:00 Temperature 98.1 F 98.1 F 98.8 F Pulse Rate 108 H 91 H 100 H Respiratory Rate 18 19 17 Blood Pressure 145/76 H 136/69 143/73 H Pulse Oximetry 93 L 94 L 97 11/04/17 00:00 11/04/17 08:00 Temperature 98.7 F 97.8 F Pulse Rate 96 H 96 H Respiratory Rate 17 17 Blood Pressure 130/75 128/82 Pulse Oximetry 96 96 Intake & Output 11/03/17 11/04/17 11/04/17 18:59 06:59 18:59 Intake Total 760 / 760 240 / 240 Output Total 1200 / 1200 1500 / 1500 Balance -440 / -440 -1260 / -1260 Weight 121 kg Intake: Oral 760 / 760 240 / 240 Output: Urine 1200 / 1200 1500 / 1500 Narrative: General: NAD, AAOx3 Chest: CTA Cardiac: Regular Abd: +BS, soft ND/NT Ext: Right forearm rash is improving, still some macular/papular areas around the elbow but much improved. - Urinary Catheter Management Suprapubic Cath placed during this visit: no Reason for continuing: Chronic Urinary Retention Results - Labs CBC & Chem 7: 10/29/17 06:25 10/29/17 06:25 Assessment and Plan - Assessment (1) Urinary tract infection due to ESBL Klebsiella Code(s): N39.0 - Urinary tract infection, site not specified; B96.89 - Other specified bacterial agents as the cause of diseases classified elsewhere Status: Acute Plan: - This a 62-year-old female with multiple sclerosis and suprapubic catheter. Patient has had multiple urinary tract infections and review of old microbiology patient has had pseudomonas aeruginosa, Ya albicans, Enterococcus faecalis and MRSA on prior urine cultures. Patient presented to the ED with complaints of suprapubic/lower abdominal pain x 3 days and associated nausea and vomiting 2 days worse in the morning. Patient was started on Bactrim 2 days prior to admission and reports her symptoms did not improved. - Patient did NOT appear septic at admission - Patient follows with Dr. Ramires and the last time suprapubic catheter was changed prior to admission was September 29, 2017 - Per ER documentation suprapubic catheter was changed by RN in the ER 10/23 - In emergency department urinary analysis showed large amount of leukocyte esterase 22 urine white blood cells occasional urine bacteria and few urine mucus - Patient received gentamicin IV in emergency department - Levaquin 500mg (10/24 - 10/26) - Urine Cx (10/23) --> polymicrobial infection - Blood Cx (10/23) --> Staph Epi 05/08 bottles, likely contaminant - No fever & No leukocytosis - Zofran and Phenergan PRN for nausea - UTI vs colonization. Pt has suprapubic catheter - Infectious disease consulted, patient known to Dr. Mina - Per ID: Symptomatic UTI 1. Begin imipenem for treatment of the ESBL Klebsiella and Pseudomonas. 2. Monitor response to the antibiotics. - Repeat the urine culture on 10/29/2017 negative x 48 hours - Antibiotics stopped on 11/01 - Pt still having nausea but Phenergan does help. - KUB on 11/01 indicated nonobstructive bowel gas pattern, not a lot of stool appreciated. - Pt has been on stool softeners and MOM but no BM since 10/30. Give Mag Citrate on 11/04. If pt moves her bowels today she can be discharged home. - DVT prophylaxis with Lovenox subcu twice daily (2) Rash and nonspecific skin eruption Code(s): R21 - Rash and other nonspecific skin eruption Status: Acute Plan: - Pt developed a pruritic, maculopapular rash on her right forearm - She has significant skin sensitivities to adhesives and had several different taped placed on that arm at her IV sites - On the evening ov 10/31 and into 11/01 she developed an itchy rash on the right forearm. - The tape and IV were removed - Pt was given Benadryl po x one dose and topical Lotrisone cream ordered on - Pt initially noted some improvement but worsened in severity on 11/02 - Pt give oral Benadryl 25mg Q4H PRN - Pt had improvement in the rash on 11/04 (3) Multiple sclerosis Code(s): G35 - Multiple sclerosis Status: Chronic Plan: - Patient follows outpatient with Dr. Suggs has had plasmapheresis in the past last time she received plasmapheresis was 8 months ago - Continue patient's home medication regimen including Rebif of 44 mcg SQ Friday and Friday - Pt received Ducolax Sup /Mag Citrate (10/24) --> BM with symptomatic improvement - OT following (4) Lupus Code(s): L93.0 - Discoid lupus erythematosus Status: Chronic Plan: - Continue patient's home medication regimen including Plaquenil 200 mg p.o. twice daily (5) Fibromyalgia Code(s): M79.7 - Fibromyalgia Status: Chronic Plan: - Home meds continued (6) HTN (hypertension) Code(s): I10 - Essential (primary) hypertension Status: Chronic Plan: - Continue patient's home medication regimen including lisinopril 20 mg p.o. every 12 hours and nifedipine 60 mg p.o. twice daily - BP has been stable (7) Constipation Code(s): K59.00 - Constipation, unspecified Status: Acute - Attending Attestation Patient examined. Assessment and plan formulated with Katherin ALEX I agree with the above.
[2017-11-04] MEDS ORDERED: Magnesium Citrate Liq 300 ML Bottle PO ONE (11:15)
[2017-11-04] MEDS ORDERED: Sod Phosphate/Sod Biphosphate (Adult) Enema 133 ML Bottle RECTAL PRN (17:08)
[2017-11-05] MEDS: Aspirin 325 MG Tablet PO SCH (08:12)
[2017-11-05] MEDS: Hydroxychloroquine 200 MG Tablet PO SCH ×2 (08:13→20:57)
[2017-11-05] MEDS: Senna/Docusate Sodium 8.6/50 MG Tablet PO SCH (08:13)
[2017-11-05] MEDS: Vitamin B Complex/Vitamin C Tablet PO SCH (08:13)
[2017-11-05] MEDS: Enoxaparin Inj 40 MG/0.4 ML Syringe SQ SCH ×2 (08:14→20:56)
[2017-11-05] MEDS: Gabapentin 300 MG Capsule PO SCH ×3 (08:14→20:57)
[2017-11-05] MEDS: Pantoprazole Sodium 20 MG DR Tablet PO SCH (08:14)
[2017-11-05] MEDS: [UNRECOGNIZED DRUG - OTHER] PO SCH ×2 (08:17→11:25)
[2017-11-05] MEDS: VITAMINS C PO SCH ×2 (08:17→11:25)
[2017-11-05] MEDS: Lisinopril 20 MG Tablet PO SCH ×2 (08:21→20:57)
[2017-11-05] MEDS ORDERED: PEG 3350/E-Lyte Soln 4000 ML Bottle PO SCH (11:00)
--- NOTE | 2017-11-05 11:03 | P.PNIM ---
Subjective Interval history: Follow up constipation Patient reports small BM after magnesium citrate continues to feel constipated offers no other complaints Physical Exam Vital signs: Vital Signs 11/04/17 12:00 11/04/17 16:00 11/04/17 20:00 Temperature 98.3 F 98.7 F 98.7 F Pulse Rate 88 96 H 92 H Respiratory Rate 18 18 18 Blood Pressure 132/72 130/69 125/63 Pulse Oximetry 96 97 99 11/05/17 00:39 11/05/17 08:00 Temperature 97.7 F 98.1 F Pulse Rate 86 97 H Respiratory Rate 18 17 Blood Pressure 116/63 122/74 Pulse Oximetry 96 97 Intake & Output 11/04/17 11/05/17 11/05/17 18:59 06:59 18:59 Intake Total 540 / 540 380 / 380 Output Total 600 / 600 480 / 480 Balance -60 / -60 -100 / -100 Weight 121 kg Intake: Oral 540 / 540 380 / 380 Output: Urine 600 / 600 480 / 480 Other: Date of Last Bowel Movement 10/30/17 - Constitutional no acute distress - Routine HEENT Exam Head: Present: normocephalic, atraumatic Eye: Present: EOMI ENT: Present: mucous membranes moist - Routine Respiratory Exam Present: CTA bilaterally - Routine Cardiovascular Exam Present: RRR - Routine Abdominal Exam Present: soft, distended. Absent: tenderness Comments: hypoactive bowel sounds - Routine Exam Comments: suprapubic catheter present - Routine Extremities Exam Present: pulses intact, normal capillary refill - Routine Skin Exam Present: intact - Routine Neurological Exam Present: oriented X3 - Urinary Catheter Management Suprapubic Cath placed during this visit: no Reason for continuing: Chronic Urinary Retention Results - Labs CBC & Chem 7: 10/29/17 06:25 10/29/17 06:25 Assessment and Plan - Assessment (1) Urinary tract infection due to ESBL Klebsiella Code(s): N39.0 - Urinary tract infection, site not specified; B96.89 - Other specified bacterial agents as the cause of diseases classified elsewhere Status: Acute Plan: - This a 62-year-old female with multiple sclerosis and suprapubic catheter. Patient has had multiple urinary tract infections and review of old microbiology patient has had pseudomonas aeruginosa, Ya albicans, Enterococcus faecalis and MRSA on prior urine cultures. Patient presented to the ED with complaints of suprapubic/lower abdominal pain x 3 days and associated nausea and vomiting 2 days worse in the morning. Patient was started on Bactrim 2 days prior to admission and reports her symptoms did not improved. - Patient did NOT appear septic at admission - Patient follows with Dr. Ramires and the last time suprapubic catheter was changed prior to admission was September 29, 2017 - Per ER documentation suprapubic catheter was changed by RN in the ER 10/23 - In emergency department urinary analysis showed large amount of leukocyte esterase 22 urine white blood cells occasional urine bacteria and few urine mucus - Patient received gentamicin IV in emergency department - Levaquin 500mg (10/24 - 10/26) - Urine Cx (10/23) --> polymicrobial infection - Blood Cx (10/23) --> Staph Epi 05/08 bottles, likely contaminant - No fever & No leukocytosis - Zofran and Phenergan PRN for nausea - UTI vs colonization. Pt has suprapubic catheter - Infectious disease consulted, patient known to Dr. Mina - Per ID: Symptomatic UTI 1. Begin imipenem for treatment of the ESBL Klebsiella and Pseudomonas. 2. Monitor response to the antibiotics. - Repeat the urine culture on 10/29/2017 negative x 48 hours - Antibiotics stopped on 11/01 - Pt still having nausea but Phenergan does help. - KUB on 11/01 indicated nonobstructive bowel gas pattern, not a lot of stool appreciated. - Pt has been on stool softeners and MOM but no BM since 10/30. Give Mag Citrate on 11/04. If pt moves her bowels today she can be discharged home. - DVT prophylaxis with Lovenox subcu twice daily (2) Rash and nonspecific skin eruption Code(s): R21 - Rash and other nonspecific skin eruption Status: Acute Plan: - Pt developed a pruritic, maculopapular rash on her right forearm - She has significant skin sensitivities to adhesives and had several different taped placed on that arm at her IV sites - On the evening ov 10/31 and into 11/01 she developed an itchy rash on the right forearm. - The tape and IV were removed - Pt was given Benadryl po x one dose and topical Lotrisone cream ordered on - Pt initially noted some improvement but worsened in severity on 11/02 - Pt give oral Benadryl 25mg Q4H PRN - Pt had improvement in the rash on 11/04 (3) Multiple sclerosis Code(s): G35 - Multiple sclerosis Status: Chronic Plan: - Patient follows outpatient with Dr. Suggs has had plasmapheresis in the past last time she received plasmapheresis was 8 months ago - Continue patient's home medication regimen including Rebif of 44 mcg SQ Friday and Friday - Pt received Ducolax Sup /Mag Citrate (10/24) --> BM with symptomatic improvement - OT following (4) Lupus Code(s): L93.0 - Discoid lupus erythematosus Status: Chronic Plan: - Continue patient's home medication regimen including Plaquenil 200 mg p.o. twice daily (5) Fibromyalgia Code(s): M79.7 - Fibromyalgia Status: Chronic Plan: - Home meds continued (6) HTN (hypertension) Code(s): I10 - Essential (primary) hypertension Status: Chronic Plan: - Continue patient's home medication regimen including lisinopril 20 mg p.o. every 12 hours and nifedipine 60 mg p.o. twice daily - BP has been stable (7) Constipation Code(s): K59.00 - Constipation, unspecified Status: Acute Plan: Patient had smal BM after magnesium citrate continues to feel constipated abd distended but soft offered gastrographine enema - patient refused patient asking for go michael BLANCA in AM - Attending Attestation Patient examined. Assessment and plan formulated with Autumn Maldonado PA-C. I agree with the above.
[2017-11-05] MEDS: INTERFERON BETA 44 MCG SQ SCH (20:59)
[2017-11-06] MEDS: Senna/Docusate Sodium 8.6/50 MG Tablet PO SCH (08:43)
[2017-11-06] MEDS: Pantoprazole Sodium 20 MG DR Tablet PO SCH (08:43)
[2017-11-06] MEDS: Enoxaparin Inj 40 MG/0.4 ML Syringe SQ SCH ×2 (08:43→20:49)
[2017-11-06] MEDS: Lisinopril 20 MG Tablet PO SCH ×2 (08:43→20:49)
[2017-11-06] MEDS: Gabapentin 300 MG Capsule PO SCH ×2 (08:44→12:55)
[2017-11-06] MEDS: Vitamin B Complex/Vitamin C Tablet PO SCH (08:44)
[2017-11-06] MEDS: Aspirin 325 MG Tablet PO SCH (08:44)
[2017-11-06] MEDS: Hydroxychloroquine 200 MG Tablet PO SCH ×2 (08:44→20:49)
[2017-11-06] MEDS: [UNRECOGNIZED DRUG - OTHER] PO SCH (08:45)
[2017-11-06] MEDS: VITAMINS C PO SCH (08:45)
--- NOTE | 2017-11-06 11:52 | FL ---
EXAM DATE: 11/06/2017 11:31 AM EDT AGE/SEX: 62 years / Female INDICATIONS: Abdominal pain, no bowel movement. CLINICAL DATA: This is the patient's subsequent encounter. Patient reports that signs and symptoms h ave been present for 3 days and indicates a pain score of 3/10. MEDICAL/SURGICAL HISTORY: None. Cholecystectomy. Partial hysterectomy. COMPARISON: [facility] [place], ABDOMEN KUB ONLY, 11/01/2017. . FLUORO TIME: 3.7 IMAGE COUNT: 15 FINDINGS: Preliminary film is unremarkable. There is no significant dilatation of the large or small bowel. No significant amount of stool seen. Under fluoroscopic guidance a Gastrografin enema was performed. We were unable to get any significant retrograde flow of Gastrografin passed the sigmoid colon during the fluoroscopic portion of the exam ination. Patient was unable to hold onto the Gastrografin. On the post films we do see some contrast getting through the sigmoid colon to the descending colon. No abnormal dilatation is demonstrated.. CONCLUSION: Limited examination. We were unable to get any significant retrograde flow Gastrografin passed the si gmoid colon during the fluoroscopic portion of the exam. I cannot exclude an obstruction in this loca tion. However there was some contrast seen distal to this point on the post void film. Recommend dire ct visualization by colonoscopy if clinically indicated. Electronically signed by: Germain Joseph MD 11/06/2017 11:51 AM EDT
[2017-11-06] MEDS ORDERED: Diatrizoate Meglum/Diatrizoate Sod Liq 120 ML Bottle (for RAD diag) RECTAL ONE (14:33)
--- NOTE | 2017-11-06 18:15 | P.PNIM ---
Subjective Interval history: Follow up: UTI Patient report passing liquid stool after Gastrografin enema earlier today Patient denies N/V Patient tolerating PO intake Physical Exam Vital signs: Vital Signs 11/05/17 20:32 11/06/17 00:48 11/06/17 08:00 Temperature 98.8 F 97.9 F 98.3 F Pulse Rate 97 H 100 H 92 H Respiratory Rate 18 18 17 Blood Pressure 121/61 124/77 128/68 Pulse Oximetry 96 96 95 11/06/17 12:00 11/06/17 13:27 11/06/17 16:00 Temperature 98.4 F 98.6 F Pulse Rate 100 H 89 Respiratory Rate 17 15 17 Blood Pressure 131/74 144/63 H Pulse Oximetry 97 95 Intake & Output 11/05/17 11/06/17 11/06/17 18:59 06:59 18:59 Intake Total 1000 / 1000 1060 / 1060 Output Total 900 / 900 1200 / 1200 Balance 100 / 100 -140 / -140 Weight 121 kg Intake: Oral 1000 / 1000 1060 / 1060 Output: Urine 900 / 900 1200 / 1200 Other: Bladder Irrigation Fluid - Amount Drained Suprapubic 900 Date of Last Bowel Movement 11/05/17 # Bowel Movements 4 Narrative: General: NAD, AAOx3 Chest: CTA Cardiac: Regular Abd: hypoactive BS, soft, distended - Urinary Catheter Management Suprapubic Cath placed during this visit: no Results - Labs CBC & Chem 7: 10/29/17 06:25 10/29/17 06:25 - Imaging Impressions Enema w/Water Soluble 11/06/17 00:00 CONCLUSION: Limited examination. We were unable to get any significant retrograde flow Gastrografin passed the sigmoid colon during the fluoroscopic portion of the exam. I cannot exclude an obstruction in this location. However there was some contrast seen distal to this point on the post void film. Recommend direct visualization by colonoscopy if clinically indicated. Assessment and Plan - Assessment (1) Urinary tract infection due to ESBL Klebsiella Code(s): N39.0 - Urinary tract infection, site not specified; B96.89 - Other specified bacterial agents as the cause of diseases classified elsewhere Status: Acute Plan: (1) Urinary tract infection due to ESBL Klebsiella - This a 62-year-old female with multiple sclerosis and suprapubic catheter. Patient has had multiple urinary tract infections and review of old microbiology patient has had pseudomonas aeruginosa, Ya albicans, Enterococcus faecalis and MRSA on prior urine cultures. Patient presented to the ED with complaints of suprapubic/lower abdominal pain x 3 days and associated nausea and vomiting 2 days worse in the morning. Patient was started on Bactrim 2 days prior to admission and reports her symptoms did not improved. - Patient did NOT appear septic at admission - Patient follows with Dr. Ramires and the last time suprapubic catheter was changed prior to admission was September 29, 2017 - Per ER documentation suprapubic catheter was changed by RN in the ER 10/23 - In emergency department urinary analysis showed large amount of leukocyte esterase 22 urine white blood cells occasional urine bacteria and few urine mucus - Patient received gentamicin IV in emergency department - Levaquin 500mg (10/24 - 10/26) - Urine Cx (10/23) --> polymicrobial infection - Blood Cx (10/23) --> Staph Epi / bottles, likely contaminant - No fever & No leukocytosis - Zofran and Phenergan PRN for nausea - UTI vs colonization. Pt has suprapubic catheter - Infectious disease consulted, patient known to Dr. Mina - Per ID: Symptomatic UTI 1. Begin imipenem for treatment of the ESBL Klebsiella and Pseudomonas. 2. Monitor response to the antibiotics. - Repeat the urine culture on 10/29/2017 negative x 48 hours - Antibiotics stopped on 11/01 - KUB on 11/01 indicated nonobstructive bowel gas pattern, not a lot of stool appreciated. - Pt has been on stool softeners and MOM - DVT prophylaxis with Lovenox subcu twice daily (2) Rash and nonspecific skin eruption - resolved - Pt developed a pruritic, maculopapular rash on her right forearm - She has significant skin sensitivities to adhesives and had several different taped placed on that arm at her IV sites - On the evening ov 10/31 and into 11/01 she developed an itchy rash on the right forearm. - The tape and IV were removed - Pt was given Benadryl po x one dose and topical Lotrisone cream ordered on - Pt initially noted some improvement but worsened in severity on 11/02 - Pt give oral Benadryl 25mg Q4H PRN - Pt had improvement in the rash on 11/04 (3) Multiple sclerosis - Patient follows outpatient with Dr. Suggs has had plasmapheresis in the past last time she received plasmapheresis was 8 months ago - Continue patient's home medication regimen including Rebif of 44 mcg SQ Friday and Friday - Pt received Ducolax Sup /Mag Citrate (10/24) --> BM with symptomatic improvement - OT following (4) Lupus - Continue patient's home medication regimen including Plaquenil 200 mg p.o. twice daily (5) Fibromyalgia - Home meds continued (6) HTN (hypertension) - Continue patient's home medication regimen including lisinopril 20 mg p.o. every 12 hours and nifedipine 60 mg p.o. twice daily - BP has been stable (7) Constipation Patient had smal BM after magnesium citrate continues to feel constipated abd distended but soft Enema w/Water Soluble 11/06/17 CONCLUSION: Limited examination. We were unable to get any significant retrograde flow Gastrografin passed the sigmoid colon during the fluoroscopic portion of the exam. I cannot exclude an obstruction in this location. However there was some contrast seen distal to this point on the post void film. Recommend direct visualization by colonoscopy if clinically indicated. Patient had difficult time with gastrograph enema today- unable to hold liquid, enema abnormal Patient passing liquid stool after enema earlier today Tolerating PO intake without N/V Offered small bowel follow through to further evaluate- patient refused Dr. Stevens will discuss with radiology in AM consider GI consult after discussing images with radiology (2) Rash and nonspecific skin eruption Code(s): R21 - Rash and other nonspecific skin eruption Status: Acute (3) Multiple sclerosis Code(s): G35 - Multiple sclerosis Status: Chronic (4) Lupus Code(s): L93.0 - Discoid lupus erythematosus Status: Chronic (5) Fibromyalgia Code(s): M79.7 - Fibromyalgia Status: Chronic (6) HTN (hypertension) Code(s): I10 - Essential (primary) hypertension Status: Chronic (7) Constipation Code(s): K59.00 - Constipation, unspecified Status: Acute - Attending Attestation Patient examined. Assessment and plan formulated with Autumn Maldonado PA-C. I agree with the above.
[2017-11-07] MEDS: Lisinopril 20 MG Tablet PO SCH ×2 (11:22→21:43)
[2017-11-07] MEDS: Aspirin 325 MG Tablet PO SCH (11:23)
[2017-11-07] MEDS: Vitamin B Complex/Vitamin C Tablet PO SCH (11:25)
[2017-11-07] MEDS: Pantoprazole Sodium 20 MG DR Tablet PO SCH (11:25)
[2017-11-07] MEDS: Senna/Docusate Sodium 8.6/50 MG Tablet PO SCH (11:25)
[2017-11-07] MEDS: Gabapentin 300 MG Capsule PO SCH ×4 (11:25→21:43)
[2017-11-07] MEDS: Enoxaparin Inj 40 MG/0.4 ML Syringe SQ SCH ×2 (11:26→21:44)
[2017-11-07] MEDS: [UNRECOGNIZED DRUG - OTHER] PO SCH (11:32)
[2017-11-07] MEDS: Hydroxychloroquine 200 MG Tablet PO SCH ×2 (11:32→21:43)
[2017-11-07] MEDS: VITAMINS C PO SCH (11:32)
[2017-11-07] MEDS: Acetaminophen 325 MG Tablet PO PRN (13:18)
--- NOTE | 2017-11-07 15:50 | P.PNIM ---
Subjective Interval history: Pt appears more comfortable today. Pt is tolerating PO intake. Pt denies n/v. Pt reports several small/moderate soft stools today. Physical Exam Vital signs: Vital Signs 11/06/17 16:00 11/06/17 20:00 11/07/17 00:00 Temperature 98.6 F 98.0 F 98.0 F Pulse Rate 89 81 91 H Respiratory Rate 17 20 19 Blood Pressure 144/63 H 133/82 148/68 H Pulse Oximetry 95 98 96 11/07/17 08:00 11/07/17 12:00 Temperature 98.0 F 98.0 F Pulse Rate 84 85 Respiratory Rate 17 Blood Pressure 136/75 122/75 Pulse Oximetry 98 98 Intake & Output 11/06/17 11/07/17 11/07/17 18:59 06:59 18:59 Intake Total 740 / 740 1100 / 1100 Output Total 850 / 850 Balance -110 / -110 1100 / 1100 Weight 121 kg Intake: Oral 740 / 740 1100 / 1100 Output: Urine 850 / 850 Other: # Voids 950 Date of Last Bowel Movement 11/07/17 11/07/17 # Bowel Movements 1 1 Narrative: General: NAD, AAOx3 Chest: CTA Cardiac: Regular Abd: hypoactive BS, soft, mildly distended - Urinary Catheter Management Suprapubic Cath placed during this visit: no Results - Labs CBC & Chem 7: 10/29/17 06:25 10/29/17 06:25 - Imaging ITS Impressions Enema w/Water Soluble 11/06/17 00:00 CONCLUSION: Limited examination. We were unable to get any significant retrograde flow Gastrografin passed the sigmoid colon during the fluoroscopic portion of the exam. I cannot exclude an obstruction in this location. However there was some contrast seen distal to this point on the post void film. Recommend direct visualization by colonoscopy if clinically indicated. Assessment and Plan - Assessment (1) Urinary tract infection due to ESBL Klebsiella Code(s): N39.0 - Urinary tract infection, site not specified; B96.89 - Other specified bacterial agents as the cause of diseases classified elsewhere Status: Acute Plan: (1) Urinary tract infection due to ESBL Klebsiella - This a 62-year-old female with multiple sclerosis and suprapubic catheter. Patient has had multiple urinary tract infections and review of old microbiology patient has had pseudomonas aeruginosa, Ya albicans, Enterococcus faecalis and MRSA on prior urine cultures. Patient presented to the ED with complaints of suprapubic/lower abdominal pain x 3 days and associated nausea and vomiting 2 days worse in the morning. Patient was started on Bactrim 2 days prior to admission and reports her symptoms did not improved. - Patient did NOT appear septic at admission - Patient follows with Dr. Ramires and the last time suprapubic catheter was changed prior to admission was September 29, 2017 - Per ER documentation suprapubic catheter was changed by RN in the ER 10/23 - In emergency department urinary analysis showed large amount of leukocyte esterase 22 urine white blood cells occasional urine bacteria and few urine mucus - Patient received gentamicin IV in emergency department - Levaquin 500mg (10/24 - 10/26) - Urine Cx (10/23) --> polymicrobial infection - Blood Cx (10/23) --> Staph Epi 05/08 bottles, likely contaminant - No fever & No leukocytosis - Zofran and Phenergan PRN for nausea - UTI vs colonization. Pt has suprapubic catheter - Infectious disease consulted, patient known to Dr. Mina - Per ID: Symptomatic UTI 1. Begin imipenem for treatment of the ESBL Klebsiella and Pseudomonas. 2. Monitor response to the antibiotics. - Repeat the urine culture on 10/29/2017 negative x 48 hours - Antibiotics stopped on 11/01 - Pt has been on stool softeners and MOM - KUB on 11/01 indicated nonobstructive bowel gas pattern, not a lot of stool appreciated. - Gastrograffin Enema (11/06/17) - Limited examination. - unable to get any significant retrograde flow Gastrografin passed the sigmoid colon during the fluoroscopic portion of the exam. - cannot exclude an obstruction in this location. - there was some contrast seen distal to this point on the post void film. - Recommend direct visualization by colonoscopy if clinically indicated. - Case d/w Dr. Carrizales (11/07/17). He will consult. - DVT prophylaxis with Lovenox subcu twice daily (2) Rash and nonspecific skin eruption - resolved - Pt developed a pruritic, maculopapular rash on her right forearm - She has significant skin sensitivities to adhesives and had several different taped placed on that arm at her IV sites - On the evening ov 10/31 and into 11/01 she developed an itchy rash on the right forearm. - The tape and IV were removed - Pt was given Benadryl po x one dose and topical Lotrisone cream ordered on - Pt initially noted some improvement but worsened in severity on 11/02 - Pt give oral Benadryl 25mg Q4H PRN - Pt had improvement in the rash on 11/04 (3) Multiple sclerosis - Patient follows outpatient with Dr. Suggs has had plasmapheresis in the past last time she received plasmapheresis was 8 months ago - Continue patient's home medication regimen including Rebif of 44 mcg SQ Friday and Friday - Pt received Ducolax Sup /Mag Citrate (10/24) --> BM with symptomatic improvement - OT following (4) Lupus - Continue patient's home medication regimen including Plaquenil 200 mg p.o. twice daily (5) Fibromyalgia - Home meds continued (6) HTN (hypertension) - Continue patient's home medication regimen including lisinopril 20 mg p.o. every 12 hours and nifedipine 60 mg p.o. twice daily - BP has been stable (7) Constipation Patient had smal BM after magnesium citrate continues to feel constipated abd distended but soft - see above (2) Rash and nonspecific skin eruption Code(s): R21 - Rash and other nonspecific skin eruption Status: Acute Plan: - Pt developed a pruritic, maculopapular rash on her right forearm - She has significant skin sensitivities to adhesives and had several different taped placed on that arm at her IV sites - On the evening ov 10/31 and into 11/01 she developed an itchy rash on the right forearm. - The tape and IV were removed - Pt was given Benadryl po x one dose and topical Lotrisone cream ordered on - Pt initially noted some improvement but worsened in severity on 11/02 - Pt give oral Benadryl 25mg Q4H PRN - Pt had improvement in the rash on 11/04 (3) Multiple sclerosis Code(s): G35 - Multiple sclerosis Status: Chronic Plan: - Patient follows outpatient with Dr. Suggs has had plasmapheresis in the past last time she received plasmapheresis was 8 months ago - Continue patient's home medication regimen including Rebif of 44 mcg SQ Friday and Friday - Pt received Ducolax Sup /Mag Citrate (10/24) --> BM with symptomatic improvement - OT following (4) Lupus Code(s): L93.0 - Discoid lupus erythematosus Status: Chronic Plan: - Continue patient's home medication regimen including Plaquenil 200 mg p.o. twice daily (5) Fibromyalgia Code(s): M79.7 - Fibromyalgia Status: Chronic Plan: - Home meds continued (6) HTN (hypertension) Code(s): I10 - Essential (primary) hypertension Status: Chronic Plan: - Continue patient's home medication regimen including lisinopril 20 mg p.o. every 12 hours and nifedipine 60 mg p.o. twice daily - BP has been stable (7) Constipation Code(s): K59.00 - Constipation, unspecified Status: Acute Plan: Patient had smal BM after magnesium citrate continues to feel constipated abd distended but soft offered gastrographine enema - patient refused patient asking for go michael BLANCA in AM
[2017-11-07] MEDS ORDERED: Magnesium Citrate Liq 300 ML Bottle PO ONE (18:15)
[2017-11-07] MEDS: INTERFERON BETA 44 MCG SQ SCH (23:10)
[2017-11-08] MEDS: Gabapentin 300 MG Capsule PO SCH ×3 (09:26→17:20)
[2017-11-08] MEDS: Senna/Docusate Sodium 8.6/50 MG Tablet PO SCH (09:26)
[2017-11-08] MEDS: Enoxaparin Inj 40 MG/0.4 ML Syringe SQ SCH ×2 (09:26→20:13)
[2017-11-08] MEDS: Vitamin B Complex/Vitamin C Tablet PO SCH (09:26)
[2017-11-08] MEDS: Aspirin 325 MG Tablet PO SCH (09:27)
[2017-11-08] MEDS: Lisinopril 20 MG Tablet PO SCH ×2 (09:27→20:12)
[2017-11-08] MEDS: Hydroxychloroquine 200 MG Tablet PO SCH ×2 (09:27→20:12)
[2017-11-08] MEDS: Pantoprazole Sodium 20 MG DR Tablet PO SCH (09:27)
[2017-11-08] MEDS: [UNRECOGNIZED DRUG - OTHER] PO SCH (09:31)
[2017-11-08] MEDS: VITAMINS C PO SCH (09:31)
--- NOTE | 2017-11-08 10:33 | P.PNCS ---
Subjective Interval history: C/R Surg alert constipation reviewed with pt some results from mag citrate Objective Vital Signs/Intake & Output: Vital Signs 11/08/17 00:00 11/08/17 08:00 Temperature 98.0 F 98.3 F Pulse Rate 100 H 87 Respiratory Rate 18 Blood Pressure 136/67 118/89 Pulse Oximetry 96 98 Intake & Output Result Diagrams: 10/29/17 06:25 10/29/17 06:25 Medications: Active Medications Objective Remarks: PE alert Abd - soft, round, mild tympany Assessment and Plan - Plan Imp: constipation, abn enema study get CT to eval poss mass LLQ add lax poss sigmoidoscopy on Friday
[2017-11-08] MEDS ORDERED: Diatrizoate Meglum/Diatrizoate Sod Liq 9 ML UDC PO ONE (11:45)
--- NOTE | 2017-11-08 12:49 | P.PNIM ---
Subjective Interval history: Patient reports small BM today around 11AM continues to feel constipated offers no other complaints Physical Exam Vital signs: Vital Signs 11/07/17 16:00 11/07/17 20:00 11/08/17 00:00 Temperature 98.1 F 97.8 F 98.0 F Pulse Rate 89 109 H 100 H Respiratory Rate 16 17 18 Blood Pressure 133/76 125/77 136/67 Pulse Oximetry 95 94 L 96 11/08/17 08:00 Temperature 98.3 F Pulse Rate 87 Respiratory Rate Blood Pressure 118/89 Pulse Oximetry 98 Intake & Output 11/07/17 11/08/17 11/08/17 18:59 06:59 18:59 Intake Total 620 / 620 600 / 600 Output Total 950 / 950 602 / 602 Balance -330 / -330 -2 / -2 Weight 121 kg Intake: Oral 620 / 620 600 / 600 Output: Urine 950 / 950 600 / 600 Stool 2 / 2 Other: Date of Last Bowel Movement 11/07/17 11/07/17 11/08/17 # Bowel Movements 2 Narrative: General: NAD, AAOx3 Chest: CTA Cardiac: Regular Abd: hypoactive BS, soft, mildly distended - Urinary Catheter Management Suprapubic Cath placed during this visit: no Reason for continuing: Chronic Urinary Retention Results - Labs CBC & Chem 7: 10/29/17 06:25 10/29/17 06:25 - Imaging ITS Impressions Enema w/Water Soluble 11/06/17 00:00 CONCLUSION: Limited examination. We were unable to get any significant retrograde flow Gastrografin passed the sigmoid colon during the fluoroscopic portion of the exam. I cannot exclude an obstruction in this location. However there was some contrast seen distal to this point on the post void film. Recommend direct visualization by colonoscopy if clinically indicated. Assessment and Plan - Assessment (1) Urinary tract infection due to ESBL Klebsiella Code(s): N39.0 - Urinary tract infection, site not specified; B96.89 - Other specified bacterial agents as the cause of diseases classified elsewhere Status: Acute Plan: (1) Urinary tract infection due to ESBL Klebsiella - This a 62-year-old female with multiple sclerosis and suprapubic catheter. Patient has had multiple urinary tract infections and review of old microbiology patient has had pseudomonas aeruginosa, Ya albicans, Enterococcus faecalis and MRSA on prior urine cultures. Patient presented to the ED with complaints of suprapubic/lower abdominal pain x 3 days and associated nausea and vomiting 2 days worse in the morning. Patient was started on Bactrim 2 days prior to admission and reports her symptoms did not improved. - Patient did NOT appear septic at admission - Patient follows with Dr. Ramires and the last time suprapubic catheter was changed prior to admission was September 29, 2017 - Per ER documentation suprapubic catheter was changed by RN in the ER 10/23 - In emergency department urinary analysis showed large amount of leukocyte esterase 22 urine white blood cells occasional urine bacteria and few urine mucus - Patient received gentamicin IV in emergency department - Levaquin 500mg (10/24 - 10/26) - Urine Cx (10/23) --> polymicrobial infection - Blood Cx (10/23) --> Staph Epi 05/08 bottles, likely contaminant - No fever & No leukocytosis - Zofran and Phenergan PRN for nausea - UTI vs colonization. Pt has suprapubic catheter - Infectious disease consulted, patient known to Dr. Mina - Per ID: Symptomatic UTI 1. Begin imipenem for treatment of the ESBL Klebsiella and Pseudomonas. 2. Monitor response to the antibiotics. - Repeat the urine culture on 10/29/2017 negative x 48 hours - Antibiotics stopped on 11/01 - DVT prophylaxis with Lovenox subcu twice daily (2) Rash and nonspecific skin eruption - resolved - Pt developed a pruritic, maculopapular rash on her right forearm - She has significant skin sensitivities to adhesives and had several different taped placed on that arm at her IV sites - On the evening ov 10/31 and into 11/01 she developed an itchy rash on the right forearm. - The tape and IV were removed - Pt was given Benadryl po x one dose and topical Lotrisone cream ordered on - Pt initially noted some improvement but worsened in severity on 11/02 - Pt give oral Benadryl 25mg Q4H PRN - Pt had improvement in the rash on 11/04 (3) Multiple sclerosis - Patient follows outpatient with Dr. Suggs has had plasmapheresis in the past last time she received plasmapheresis was 8 months ago - Continue patient's home medication regimen including Rebif of 44 mcg SQ Friday and Friday - OT following (4) Lupus - Continue patient's home medication regimen including Plaquenil 200 mg p.o. twice daily (5) Fibromyalgia - Home meds continued (6) HTN (hypertension) - Continue patient's home medication regimen including lisinopril 20 mg p.o. every 12 hours and nifedipine 60 mg p.o. twice daily - BP has been stable (7) Constipation continues to feel constipated abd distended but soft - Pt has been on stool softeners and MOM - KUB on 11/01 indicated nonobstructive bowel gas pattern, not a lot of stool appreciated. - Gastrograffin Enema (11/06/17) - Limited examination. - unable to get any significant retrograde flow Gastrografin passed the sigmoid colon during the fluoroscopic portion of the exam. - cannot exclude an obstruction in this location. - there was some contrast seen distal to this point on the post void film. - Recommend direct visualization by colonoscopy if clinically indicated. - Case d/w Dr. Carrizales (11/07/17). He will consult, appreciate the assistance. CT abdomen to eval poss mass LLQ laxative PRN, bowel regiment poss sigmoidoscopy on Friday (2) Rash and nonspecific skin eruption Code(s): R21 - Rash and other nonspecific skin eruption Status: Acute (3) Multiple sclerosis Code(s): G35 - Multiple sclerosis Status: Chronic (4) Lupus Code(s): L93.0 - Discoid lupus erythematosus Status: Chronic (5) Fibromyalgia Code(s): M79.7 - Fibromyalgia Status: Chronic (6) HTN (hypertension) Code(s): I10 - Essential (primary) hypertension Status: Chronic (7) Constipation Code(s): K59.00 - Constipation, unspecified Status: Acute - Attending Attestation Patient examined. Assessment and plan formulated with Autumn ALEX I agree with the above.
--- NOTE | 2017-11-08 19:14 | CT ---
EXAM DATE: 11/08/2017 6:59 PM EDT AGE/SEX: 62 years / Female INDICATIONS: Evaluate possible obstruction rectosigmoid. CLINICAL DATA: This is the patient's initial encounter. Patient reports that signs and symptoms have been present for 1 day and indicates a pain score of 5/10. MEDICAL/SURGICAL HISTORY: None. None. RADIATION DOSE: 15.30 CTDI (mGy) COMPARISON: [facility] [place], CT ABDOMEN & PELVIS W CONTRAST, 09/11/2016. . TECHNIQUE: Multiple contiguous axial images were obtained through the abdomen. Images were obtained using multiple row detector helical technique. Using automated exposure control and adjustment of the mA and/or kV according to patient size, radiation dose was kept as low as reasonably achievable to o btain optimal diagnostic quality images. DICOM format image data is available electronically for rev iew and comparison. FINDINGS: Lung bases are clear. No pleural effusion. Mild pericardial fluid. No acute findings in the liver, spleen, adrenals, kidneys or pancreas. Previous cholecystectomy. Mild scoliosis. No free fluid. No bowel obstruction. No adenopathy. Suprapubic catheter is present CONCLUSION: 1. No acute findings on abdomen and pelvic CT. No significant change from September 2016. Previous cholecy stectomy and hysterectomy. Suprapubic catheter present in decompressed bladder. Electronically signed by: John Gill MD 11/08/2017 7:12 PM EDT
[2017-11-09] MEDS: Lisinopril 20 MG Tablet PO SCH ×2 (09:04→20:06)
[2017-11-09] MEDS: Pantoprazole Sodium 20 MG DR Tablet PO SCH (09:04)
[2017-11-09] MEDS: Vitamin B Complex/Vitamin C Tablet PO SCH (09:04)
[2017-11-09] MEDS: Hydroxychloroquine 200 MG Tablet PO SCH ×2 (09:04→20:06)
[2017-11-09] MEDS: Gabapentin 300 MG Capsule PO SCH ×3 (09:05→17:20)
[2017-11-09] MEDS: Senna/Docusate Sodium 8.6/50 MG Tablet PO SCH (09:05)
[2017-11-09] MEDS: Aspirin 325 MG Tablet PO SCH (09:05)
[2017-11-09] MEDS: Enoxaparin Inj 40 MG/0.4 ML Syringe SQ SCH ×2 (09:06→20:07)
[2017-11-09] MEDS: [UNRECOGNIZED DRUG - OTHER] PO SCH (09:07)
[2017-11-09] MEDS: VITAMINS C PO SCH (09:07)
--- NOTE | 2017-11-09 12:05 | P.PNIM ---
Subjective Interval history: Follow up UTI and possible obstruction UTI treatment completed Patient reports feeling well today passing stool Physical Exam Vital signs: Vital Signs 11/08/17 16:00 11/08/17 20:00 11/09/17 00:00 Temperature 98.8 F 97.8 F 97.8 F Pulse Rate 94 H 109 H 92 H Respiratory Rate 19 17 17 Blood Pressure 134/71 125/79 128/66 Pulse Oximetry 94 L 94 L 98 11/09/17 08:00 11/09/17 11:59 Temperature 98.3 F 97.5 F L Pulse Rate 92 H 90 Respiratory Rate 18 21 Blood Pressure 136/77 142/77 H Pulse Oximetry 96 97 Intake & Output 11/08/17 11/09/17 11/09/17 18:59 06:59 18:59 Intake Total 920 / 920 Output Total 1300 / 1300 Balance -380 / -380 Intake: Oral 920 / 920 Output: Urine 1300 / 1300 Other: Date of Last Bowel Movement 11/08/17 11/08/17 # Bowel Movements 3 Narrative: General: NAD, AAOx3 Chest: CTA Cardiac: Regular Abd: normoactive BS, soft, mildly distended - Urinary Catheter Management Suprapubic Cath placed during this visit: no Reason for continuing: Chronic Urinary Retention Results - Labs CBC & Chem 7: 10/29/17 06:25 10/29/17 06:25 - Imaging Impressions Abdomen/Pelvis CT 11/08/17 00:00 CONCLUSION: 1. No acute findings on abdomen and pelvic CT. No significant change from September 2016. Previous cholecystectomy and hysterectomy. Suprapubic catheter present in decompressed bladder. Assessment and Plan - Assessment (1) Urinary tract infection due to ESBL Klebsiella Code(s): N39.0 - Urinary tract infection, site not specified; B96.89 - Other specified bacterial agents as the cause of diseases classified elsewhere Status: Acute Plan: Constipation continues to feel constipated abd distended but soft - Pt has been on stool softeners and MOM - KUB on 11/01 indicated nonobstructive bowel gas pattern, not a lot of stool appreciated. - Gastrograffin Enema (11/06/17) - Limited examination. - unable to get any significant retrograde flow Gastrografin passed the sigmoid colon during the fluoroscopic portion of the exam. - cannot exclude an obstruction in this location. - there was some contrast seen distal to this point on the post void film. - Recommend direct visualization by colonoscopy if clinically indicated. - Case d/w Dr. Carrizales (11/07/17). He will consult, appreciate the assistance. CT abdomen to eval poss mass LLQ laxative PRN, bowel regiment. poss sigmoidoscopy on Friday - patient now passing stool Urinary tract infection due to ESBL Klebsiella - resolved - This a 62-year-old female with multiple sclerosis and suprapubic catheter. Patient has had multiple urinary tract infections and review of old microbiology patient has had pseudomonas aeruginosa, Ya albicans, Enterococcus faecalis and MRSA on prior urine cultures. Patient presented to the ED with complaints of suprapubic/lower abdominal pain x 3 days and associated nausea and vomiting 2 days worse in the morning. Patient was started on Bactrim 2 days prior to admission and reports her symptoms did not improved. - Patient did NOT appear septic at admission - Patient follows with Dr. Ramires and the last time suprapubic catheter was changed prior to admission was September 29, 2017 - Per ER documentation suprapubic catheter was changed by RN in the ER 10/23 - In emergency department urinary analysis showed large amount of leukocyte esterase 22 urine white blood cells occasional urine bacteria and few urine mucus - Patient received gentamicin IV in emergency department - Levaquin 500mg (10/24 - 10/26) - Urine Cx (10/23) --> polymicrobial infection - Blood Cx (10/23) --> Staph Epi / bottles, likely contaminant - No fever & No leukocytosis - Zofran and Phenergan PRN for nausea - UTI vs colonization. Pt has suprapubic catheter - Infectious disease consulted, patient known to Dr. Mina - Per ID: Symptomatic UTI 1. Begin imipenem for treatment of the ESBL Klebsiella and Pseudomonas. 2. Monitor response to the antibiotics. - Repeat the urine culture on 10/29/2017 negative x 48 hours - Antibiotics stopped on 11/01 - DVT prophylaxis with Lovenox subcu twice daily Rash and nonspecific skin eruption - resolved - Pt developed a pruritic, maculopapular rash on her right forearm - She has significant skin sensitivities to adhesives and had several different taped placed on that arm at her IV sites - On the evening ov 10/31 and into 11/01 she developed an itchy rash on the right forearm. - The tape and IV were removed - Pt was given Benadryl po x one dose and topical Lotrisone cream ordered on - Pt initially noted some improvement but worsened in severity on 11/02 - Pt give oral Benadryl 25mg Q4H PRN - Pt had improvement in the rash on 11/04 Multiple sclerosis - Patient follows outpatient with Dr. Suggs has had plasmapheresis in the past last time she received plasmapheresis was 8 months ago - Continue patient's home medication regimen including Rebif of 44 mcg SQ Friday and Friday - OT following Lupus - Continue patient's home medication regimen including Plaquenil 200 mg p.o. twice daily Fibromyalgia - Home meds continued HTN (hypertension) - Continue patient's home medication regimen including lisinopril 20 mg p.o. every 12 hours and nifedipine 60 mg p.o. twice daily - BP has been stable (2) Rash and nonspecific skin eruption Code(s): R21 - Rash and other nonspecific skin eruption Status: Acute (3) Multiple sclerosis Code(s): G35 - Multiple sclerosis Status: Chronic (4) Lupus Code(s): L93.0 - Discoid lupus erythematosus Status: Chronic (5) Fibromyalgia Code(s): M79.7 - Fibromyalgia Status: Chronic (6) HTN (hypertension) Code(s): I10 - Essential (primary) hypertension Status: Chronic (7) Constipation Code(s): K59.00 - Constipation, unspecified Status: Acute - Attending Attestation Patient examined. Assessment and plan formulated with Autumn Maldonado PA-C. I agree with the above. Pt continues to have soft BM. Case d/w Dr. Carrizales (11/09) Pt to have Flex Sigmoidoscopy (11/10). Anticipate d/c to home following flex sig.
[2017-11-09] MEDS ORDERED: Magnesium Citrate Liq 300 ML Bottle PO ONE (17:13)
--- NOTE | 2017-11-09 17:13 | P.PNCS ---
Subjective Interval history: C/R Surg afebrile, VSS some stools after CT no Pain Objective Vital Signs/Intake & Output: Vital Signs Intake & Output Result Diagrams: 10/29/17 06:25 10/29/17 06:25 Imaging Studies: Impressions Abdomen/Pelvis CT 11/08/17 00:00 CONCLUSION: 1. No acute findings on abdomen and pelvic CT. No significant change from September 2016. Previous cholecystectomy and hysterectomy. Suprapubic catheter present in decompressed bladder. Medications: Active Medications Acetaminophen (Tylenol) 650 mg PO Q6H PRN PRN Reason: PAIN SCALE 1 TO 2 Last Admin: 11/07/17 13:18 Dose: 650 mg Al Hydroxide/Mg Hydroxide (Milk Of Magnesia Liq) 30 ml PO Q12H PRN PRN Reason: Mild constipation Last Admin: 11/09/17 15:50 Dose: 30 ml Albuterol (Duoneb Neb (Prn)) 1 ampul NEB Q4HR NEB PRN PRN Reason: dyspnea Objective Remarks: PE alert Abd - obese, soft, non-tender Assessment and Plan - Plan Imp: constipation, abn enema study get CT to eval poss mass LLQ - No mass seen add lax poss sigmoidoscopy on Friday - will try to bakari
[2017-11-10] MEDS ORDERED: Metoprolol Tartrate 25 MG Tablet PO SCH ×2 (02:15)
[2017-11-10] MEDS ORDERED: Chlorhexidine Gluconate 2% 1 Pack (2 Cloths) TOPICAL SCH ×2 (02:15)
[2017-11-10] MEDS ORDERED: Sodium Chlor 0.9% Inj 500 ML IV.SIG SCH ×2 (03:00)
--- NOTE | 2017-11-10 08:04 | P.PNIM ---
Subjective Interval history: Follow up UTI- resolved - constipation with abnormal gastrographin enema (concern for obstruction) Patient reports she had a, "busy night," with the prep for sigmoidoscopy today reports mutliple BMs offers no other concerns/complaints Physical Exam Vital signs: Vital Signs 11/09/17 08:00 11/09/17 11:59 11/09/17 16:00 Temperature 98.3 F 97.5 F L 98.6 F Pulse Rate 92 H 90 99 H Respiratory Rate 18 21 17 Blood Pressure 136/77 142/77 H 133/69 Pulse Oximetry 96 97 97 11/09/17 20:12 11/10/17 00:19 Temperature 98.0 F 98.2 F Pulse Rate 97 H 99 H Respiratory Rate 20 20 Blood Pressure 139/73 135/78 Pulse Oximetry 96 96 Intake & Output 11/09/17 11/10/17 11/10/17 18:59 06:59 18:59 Intake Total 695 / 695 480 / 480 Output Total 1350 / 1350 600 / 600 Balance -655 / -655 -120 / -120 Weight 121 kg Intake: Oral 695 / 695 480 / 480 Output: Urine 1350 / 1350 Urine Amount (Catheter) 600 / 600 Suprapubic 600 / 600 Other: Date of Last Bowel Movement 11/09/17 # Bowel Movements 0 4 Narrative: General: NAD, AAOx3 Chest: CTA Cardiac: Regular Abd: normoactive BS, soft, non distended - Urinary Catheter Management Suprapubic Cath placed during this visit: no Reason for continuing: Not indwelling catheter Results - Labs CBC & Chem 7: 10/29/17 06:25 10/29/17 06:25 Assessment and Plan - Assessment (1) Urinary tract infection due to ESBL Klebsiella Code(s): N39.0 - Urinary tract infection, site not specified; B96.89 - Other specified bacterial agents as the cause of diseases classified elsewhere Status: Acute Plan: Constipation continues to feel constipated abd distended but soft - Pt has been on stool softeners and MOM - KUB on 11/01 indicated nonobstructive bowel gas pattern, not a lot of stool appreciated. - Gastrograffin Enema (11/06/17) - Limited examination. - unable to get any significant retrograde flow Gastrografin passed the sigmoid colon during the fluoroscopic portion of the exam. - cannot exclude an obstruction in this location. - there was some contrast seen distal to this point on the post void film. - Recommend direct visualization by colonoscopy if clinically indicated. - Case d/w Dr. Carrizales (11/07/17). He will consult, appreciate the assistance. CT abdomen to eval poss mass LLQ laxative PRN, bowel regiment. poss sigmoidoscopy today NPO for procedure - patient now passing stool Urinary tract infection due to ESBL Klebsiella - resolved - This a 62-year-old female with multiple sclerosis and suprapubic catheter. Patient has had multiple urinary tract infections and review of old microbiology patient has had pseudomonas aeruginosa, Ya albicans, Enterococcus faecalis and MRSA on prior urine cultures. Patient presented to the ED with complaints of suprapubic/lower abdominal pain x 3 days and associated nausea and vomiting 2 days worse in the morning. Patient was started on Bactrim 2 days prior to admission and reports her symptoms did not improved. - Patient did NOT appear septic at admission - Patient follows with Dr. Ramires and the last time suprapubic catheter was changed prior to admission was September 29, 2017 - Per ER documentation suprapubic catheter was changed by RN in the ER 10/23 - In emergency department urinary analysis showed large amount of leukocyte esterase 22 urine white blood cells occasional urine bacteria and few urine mucus - Patient received gentamicin IV in emergency department - Levaquin 500mg (10/24 - 10/26) - Urine Cx (10/23) --> polymicrobial infection - Blood Cx (10/23) --> Staph Epi 1/ bottles, likely contaminant - No fever & No leukocytosis - Zofran and Phenergan PRN for nausea - UTI vs colonization. Pt has suprapubic catheter - Infectious disease consulted, patient known to Dr. Mina - Per ID: Symptomatic UTI 1. Begin imipenem for treatment of the ESBL Klebsiella and Pseudomonas. 2. Monitor response to the antibiotics. - Repeat the urine culture on 10/29/2017 negative x 48 hours - Antibiotics stopped on 11/01 - DVT prophylaxis with Lovenox subcu twice daily Rash and nonspecific skin eruption - resolved - Pt developed a pruritic, maculopapular rash on her right forearm - She has significant skin sensitivities to adhesives and had several different taped placed on that arm at her IV sites - On the evening ov 10/31 and into 11/01 she developed an itchy rash on the right forearm. - The tape and IV were removed - Pt was given Benadryl po x one dose and topical Lotrisone cream ordered on - Pt initially noted some improvement but worsened in severity on 11/02 - Pt give oral Benadryl 25mg Q4H PRN - Pt had improvement in the rash on 11/04 Multiple sclerosis - Patient follows outpatient with Dr. Suggs has had plasmapheresis in the past last time she received plasmapheresis was 8 months ago - Continue patient's home medication regimen including Rebif of 44 mcg SQ Friday and Friday - OT following Lupus - Continue patient's home medication regimen including Plaquenil 200 mg p.o. twice daily Fibromyalgia - Home meds continued HTN (hypertension) - Continue patient's home medication regimen including lisinopril 20 mg p.o. every 12 hours and nifedipine 60 mg p.o. twice daily - BP has been stable Pt seen with Melissa ANAND. The exam, history, and the medical decision- making described in the above note were completed with the assistance of the mid -level provider. I reviewed and agree with the findings presented. I attest that I had a [id number] encounter with the patient on the same day, and personally performed and documented my assessment and findings in the medical record.
[2017-11-10] MEDS: Hydroxychloroquine 200 MG Tablet PO SCH ×2 (08:30→20:43)
[2017-11-10] MEDS: Gabapentin 300 MG Capsule PO SCH ×3 (08:30→18:32)
[2017-11-10] MEDS: Aspirin 325 MG Tablet PO SCH (08:30)
[2017-11-10] MEDS: Pantoprazole Sodium 20 MG DR Tablet PO SCH (08:30)
[2017-11-10] MEDS: Vitamin B Complex/Vitamin C Tablet PO SCH (08:30)
[2017-11-10] MEDS: Senna/Docusate Sodium 8.6/50 MG Tablet PO SCH (08:30)
[2017-11-10] MEDS: Lisinopril 20 MG Tablet PO SCH ×2 (08:30→20:43)
[2017-11-10] MEDS: [UNRECOGNIZED DRUG - OTHER] PO SCH (08:33)
[2017-11-10] MEDS: VITAMINS C PO SCH (08:33)
[2017-11-10] MEDS: Enoxaparin Inj 40 MG/0.4 ML Syringe SQ SCH ×2 (08:34→20:57)
--- NOTE | 2017-11-10 09:51 | ECG ---
Date Performed: 11/10/2017 Time Performed: 05:10:54 PTAGE: 62 years EKG: Sinus tachycardia Possible inferior infarct - age undetermined Possible anterior infarct - age undetermined Abnormal ECG Since the PREVIOUS TRACING , no significant change noted PREVIOUS TRACIN09/11/2016 14.46 DOCTOR: Marky Amezquita Interpretating Date/Time 11/10/2017 09:48:25
[2017-11-10] MEDS ORDERED: Lidocaine PF 1% Inj 5 ML Syringe INFILTRATN ONE (10:49)
--- NOTE | 2017-11-11 00:13 | MR ---
cc: Hiro Carrizales MD Jan Stevens DATE: 11/10/2017 PREOPERATIVE DIAGNOSIS: Abnormal Gastrografin enema, possible colonic obstruction, history of multiple sclerosis and chronic constipation. PROCEDURE: Limited colonoscopy. POSTOPERATIVE DIAGNOSES: 1. Very poor prep. 2. No colonic obstruction. 3. Diverticulosis, rectosigmoid, left colon. SURGEON: Hiro Carrizales MD DESCRIPTION OF PROCEDURE: The patient was placed in the left lateral decubitus position. After adequate anesthesia sedation, rectal exam confirmed the emptiness in the rectal vault. Olympus colonoscope was then introduced into the rectum and advanced with some difficulty due to the poor prep through the rectum and rectosigmoid up into the left colon. There was quite a bit of solid stool and fecal material at this level. The lumen was somewhat more difficult to negotiate. The colonoscope was, therefore, gradually withdrawn, visualizing the mucosal surface throughout the distal colon. The lumen was irrigated copiously, suctioning as much of the fecal material out as possible. There did not appear to be any narrowing or compromise to the lumen. Rectosigmoid, there were some diverticulum, but no sign of any luminal narrowing or fixed obstruction. The rectum appeared pretty unremarkable. The patient tolerated the procedure quite well and was brought to the recovery room in stable condition. Sponge and needle counts were correct. in stable condition. Hiro Carrizales MD [facility]/ , 11:39 PM , 12:12 AM
[2017-11-11] MEDS: Acetaminophen 325 MG Tablet PO PRN (00:20)
[2017-11-11] MEDS: Enoxaparin Inj 40 MG/0.4 ML Syringe SQ SCH (08:06)
[2017-11-11] MEDS: Aspirin 325 MG Tablet PO SCH (08:06)
[2017-11-11] MEDS: Pantoprazole Sodium 20 MG DR Tablet PO SCH (08:06)
[2017-11-11] MEDS: Gabapentin 300 MG Capsule PO SCH (08:06)
[2017-11-11] MEDS: Vitamin B Complex/Vitamin C Tablet PO SCH (08:06)
[2017-11-11] MEDS: Hydroxychloroquine 200 MG Tablet PO SCH (08:06)
[2017-11-11] MEDS: Lisinopril 20 MG Tablet PO SCH (08:06)
[2017-11-11] MEDS: Senna/Docusate Sodium 8.6/50 MG Tablet PO SCH (08:06)
--- NOTE | 2017-11-11 08:14 | P.DS ---
<Autumn Maldonado W - Last Filed: 11/11/17 08:06> Date of admission: 10/27/17 15:00 Primary care physician: John Bloom MD Attending physician on discharge: Alex Morales Brief History from admission: This is a 62 year old female patient with a past medical history which includes Multiple sclerosis diagnosed in late 2012 requiring plasmapheresis weekly followed by Dr. Suggs, Fibromyalgia, Bipolar disorder, morbid obesity, Hypertension, Lupus, Gastroparesis, Recurrent UTIs, chronic indwelling suprapubic catheter last changed September 29, [address] Ramires. Patient presented to the emergency department with reports of suprapubic/lower abdominal pain described as aching/pressure sensation which is been going on for approximately 3 days. Patient also reports associated nausea and vomiting 2 days worse in the morning. Patient reports she was started on Bactrim 2 days ago then she developed, "bumps all over her arms," then she proceeded to the emergency department for further evaluation and treatment. Patient reports that the outpatient oral antibiotics often do not work for her urinary tract infections and she is concerned she needs IV antibiotics. Patient denies chest pain, shortness of breath, fevers chills, constipation or diarrhea. DS: Diagnosis - Discharge Diagnosis (1) Urinary tract infection due to ESBL Klebsiella Status: Acute DS: Medications - Discharge Medications Prescriptions: docusate sodium [Colace] 100 mg PO BID 30 Days #60 cap lactulose 30 g PO DAILY 30 Days each promethazine 25 mg PO Q6H PRN #10 tab PRN Reason: nausea/ vomitting DS: Summary Hospital Course: Constipation continues to feel constipated abd distended but soft - Pt has been on stool softeners and MOM - KUB on 11/01 indicated nonobstructive bowel gas pattern, not a lot of stool appreciated. - Gastrograffin Enema (11/06/17) - Limited examination. - unable to get any significant retrograde flow Gastrografin passed the sigmoid colon during the fluoroscopic portion of the exam. - cannot exclude an obstruction in this location. - there was some contrast seen distal to this point on the post void film. - Recommend direct visualization by colonoscopy if clinically indicated. - Case d/w Dr. Carrizales (11/07/17). He will consult, appreciate the assistance. CT abdomen to eval poss mass LLQ reveiwed and reveals: No acute findings on abdomen and pelvic CT. No significant change from September 2016. Previous cholecystectomy and hysterectomy. Suprapubic catheter present in decompressed bladder 11/10/17 Limited colonoscopy Which revealed solid stool and fecal material at this level. There did not appear to be any narrowing or compromise to the lumen. Rectosigmoid, there were some diverticulum, but no sign of any luminal narrowing or fixed obstruction. - laxative PRN, bowel regiment. Urinary tract infection due to ESBL Klebsiella - resolved - This a 62-year-old female with multiple sclerosis and suprapubic catheter. Patient has had multiple urinary tract infections and review of old microbiology patient has had pseudomonas aeruginosa, Ya albicans, Enterococcus faecalis and MRSA on prior urine cultures. Patient presented to the ED with complaints of suprapubic/lower abdominal pain x 3 days and associated nausea and vomiting 2 days worse in the morning. Patient was started on Bactrim 2 days prior to admission and reports her symptoms did not improved. - Patient did NOT appear septic at admission - Patient follows with Dr. Ramires and the last time suprapubic catheter was changed prior to admission was September 29, 2017 - Per ER documentation suprapubic catheter was changed by RN in the ER 10/23 - In emergency department urinary analysis showed large amount of leukocyte esterase 22 urine white blood cells occasional urine bacteria and few urine mucus - Patient received gentamicin IV in emergency department - Levaquin 500mg (10/24 - 10/26) - Urine Cx (10/23) --> polymicrobial infection - Blood Cx (10/23) --> Staph Epi 1/4 bottles, likely contaminant - No fever & No leukocytosis - Zofran and Phenergan PRN for nausea - UTI vs colonization. Pt has suprapubic catheter - Infectious disease consulted, patient known to Dr. Mina - Per ID: Symptomatic UTI 1. Begin imipenem for treatment of the ESBL Klebsiella and Pseudomonas. 2. Monitor response to the antibiotics. - Repeat the urine culture on 10/29/2017 negative x 48 hours - Antibiotics stopped on 11/01 - DVT prophylaxis with Lovenox subcu twice daily Rash and nonspecific skin eruption - resolved - Pt developed a pruritic, maculopapular rash on her right forearm - She has significant skin sensitivities to adhesives and had several different taped placed on that arm at her IV sites - On the evening ov 6/29 and into 11/01 she developed an itchy rash on the right forearm. - The tape and IV were removed - Pt was given Benadryl po x one dose and topical Lotrisone cream ordered on - Pt initially noted some improvement but worsened in severity on 11/02 - Pt give oral Benadryl 25mg Q4H PRN - Pt had improvement in the rash on 11/04 Multiple sclerosis - Patient follows outpatient with Dr. Suggs has had plasmapheresis in the past last time she received plasmapheresis was 8 months ago - Continue patient's home medication regimen including Rebif of 44 mcg SQ Friday and Friday - OT following Lupus - Continue patient's home medication regimen including Plaquenil 200 mg p.o. twice daily Fibromyalgia - Home meds continued HTN (hypertension) - Continue patient's home medication regimen including lisinopril 20 mg p.o. every 12 hours and nifedipine 60 mg p.o. twice daily - BP has been stable - Time Spent with Patient Total time spent providing and/or coordinating discharge services: Greater than 30 minutes Exam Vital signs: Vital Signs 11/10/17 12:00 11/10/17 16:00 11/10/17 20:00 Temperature 98.2 F 98.5 F 98.3 F Pulse Rate 90 89 97 H Respiratory Rate 18 Blood Pressure 123/72 132/68 131/70 Pulse Oximetry 97 97 95 11/11/17 02:20 Temperature 97.6 F Pulse Rate 104 H Respiratory Rate 20 Blood Pressure 137/77 Pulse Oximetry 96 Intake & Output 11/10/17 11/11/17 11/11/17 18:59 06:59 18:59 Intake Total 150 / 150 Output Total 1600 / 1600 550 / 550 Balance -1450 / -1450 -550 / -550 Intake: Anesthesia Amount 150 / 150 Output: Urine 1600 / 1600 550 / 550 Other: Date of Last Bowel Movement 11/10/17 # Bowel Movements 3 1 Narrative: General: NAD, AAOx3 Chest: CTA Cardiac: Regular Abd: normoactive BS, soft, non distended Results Procedures completed during hospitalization: - Gastrograffin Enema (11/06/17) with IR - Limited examination. - unable to get any significant retrograde flow Gastrografin passed the sigmoid colon during the fluoroscopic portion of the exam. - cannot exclude an obstruction in this location. - there was some contrast seen distal to this point on the post void film. - Recommend direct visualization by colonoscopy if clinically indicated. 11/10/[address] Carrizales: Which revealed solid stool and fecal material at this level. There did not appear to be any narrowing or compromise to the lumen. Rectosigmoid, there were some diverticulum, but no sign of any luminal narrowing or fixed obstruction. - Impressions ITS Impressions Enema w/Water Soluble 11/06/17 00:00 CONCLUSION: Limited examination. We were unable to get any significant retrograde flow Gastrografin passed the sigmoid colon during the fluoroscopic portion of the exam. I cannot exclude an obstruction in this location. However there was some contrast seen distal to this point on the post void film. Recommend direct visualization by colonoscopy if clinically indicated. Abdomen/Pelvis CT 11/08/17 00:00 CONCLUSION: 1. No acute findings on abdomen and pelvic CT. No significant change from September 2016. Previous cholecystectomy and hysterectomy. Suprapubic catheter present in decompressed bladder. <Alex Morales - Last Filed: 11/11/17 10:27> Date of admission: 10/27/17 15:00 Primary care physician: John Bloom MD DS: Diagnosis - Discharge Diagnosis (1) Urinary tract infection due to ESBL Klebsiella Status: Acute DS: Summary - Time Spent with Patient Total time spent providing and/or coordinating discharge services: Exam Vital signs: Vital Signs 11/10/17 12:00 11/10/17 16:00 11/10/17 20:00 Temperature 98.2 F 98.5 F 98.3 F Pulse Rate 90 89 97 H Respiratory Rate 18 18 18 Blood Pressure 123/72 132/68 131/70 Pulse Oximetry 97 97 95 11/11/17 02:20 11/11/17 08:00 Temperature 97.6 F 98.0 F Pulse Rate 104 H 80 Respiratory Rate 20 17 Blood Pressure 137/77 137/75 Pulse Oximetry 96 97 Intake & Output 11/10/17 11/11/17 11/11/17 18:59 06:59 18:59 Intake Total 150 / 150 Output Total 1600 / 1600 550 / 550 Balance -1450 / -1450 -550 / -550 Intake: Anesthesia Amount 150 / 150 Output: Urine 1600 / 1600 550 / 550 Other: Date of Last Bowel Movement 11/10/17 # Bowel Movements 3 1 Results - Impressions ITS Impressions Enema w/Water Soluble 11/06/17 00:00 CONCLUSION: Limited examination. We were unable to get any significant retrograde flow Gastrografin passed the sigmoid colon during the fluoroscopic portion of the exam. I cannot exclude an obstruction in this location. However there was some contrast seen distal to this point on the post void film. Recommend direct visualization by colonoscopy if clinically indicated. Abdomen/Pelvis CT 11/08/17 00:00 CONCLUSION: 1. No acute findings on abdomen and pelvic CT. No significant change from September 2016. Previous cholecystectomy and hysterectomy. Suprapubic catheter present in decompressed bladder. Discharge Plan - Discharge Order Discharge Orders: Discharge Order (Routine); Ordered 11/11/17 Ordered By: Autumn Maldonado - Physicians Team Primary Care Provider: John Bloom Attending Provider: Jan Stevens Other Providers: Juaquin Arellano MD ; [facility], ; [facility], [facility] ; Hiro Carrizales MD - Rxs /Orders / Referrals /Forms Prescriptions: New docusate sodium [Colace] 100 mg Capsule 100 mg PO BID 30 Days Qty: 60 RF: 0 lactulose 10 gram Packet 30 g PO DAILY 30 Days RF: 0 promethazine 25 mg Tablet 25 mg PO Q6H PRN (Reason: nausea/ vomitting) Qty: 10 RF: 0 Continue aspirin 325 mg Tablet 325 mg PO DAILY cholecalciferol (vitamin D3) 10,000 unit Capsule 10,000 unit PO DAILY cranberry conc-ascorbic acid [Cranberry Urinary Comfort] 140-100 mg Capsule 1 cap PO DAILY furosemide 40 mg Tablet 40 mg PO DAILY gabapentin 600 mg Tablet 600 mg PO TID hydromorphone 4 mg Tablet 4 mg PO Q8H PRN (Reason: Pain) hydroxychloroquine [Plaquenil] 200 mg Tablet 200 mg PO BID ibuprofen 800 mg Tablet 800 mg PO Q6H PRN (Reason: Pain) interferon beta-1a (albumin) [Rebif Rebidose] 44 mcg/0.5 mL Pen Injector 44 mcg SUB-Q 3XW ipratropium-albuterol 0.5 mg-3 mg(2.5 mg base)/3 mL Solution For Nebulization 0.5 mg INHALATION Q4H lisinopril 20 mg Tablet 20 mg PO Q12H methenamine hippurate [Hiprex] 1 gram Tablet 1 g PO BID nifedipine [Procardia XL] 60 mg Tablet Extended Release 24hr 60 mg PO BID pantoprazole [Protonix] 20 mg Tablet,Delayed Release (Dr/Ec) 20 mg PO DAILY potassium chloride 20 mEq Tablet Extended Release 20 meq PO DAILY vitamin B complex [B-Complex] Tablet 1 tab PO DAILY Discontinued clonidine HCl [Catapres] 0.2 mg Tablet 0.4 mg PO TID Referrals: John Bloom MD [Primary Care Provider] - 11/20/17 2:45 pm (follow up in 1 week)
[2017-11-11] MEDS: [UNRECOGNIZED DRUG - OTHER] PO SCH (08:29)
[2017-11-11] MEDS: VITAMINS C PO SCH (08:29)
[2017-11-11 08:37] VITALS: BP 137/75; PULSE 80; RESP 17; TEMP 98; O2SAT 97
--- NOTE | 2017-11-11 08:39 | P.DCO ---
- Physical Therapy Order: Evaluate and treat - Occupational Therapy Order: Evaluate and treat - Home Health Nursing Order: Medical education, Signs/symptoms of disease process, Medication education-adverse effect - Certification I have seen patient Angie Montez on 11/11/17. My clinical findings support the need for the requested home health care services because: Limited mobility due to disease progression I certify that my clinical findings support that this patient is homebound because: Unable to use public transportation
== END 2017-11-11 10:50 | disposition home health service (06) ==
LOC: N07 10-27 15:00
PROVIDERS: ADMIT Hospitalist; ATTEND Hospitalist